=== PATIENT | male | born 1935 | race Caucasian/White ===

== ENCOUNTER 2016-03-04 11:16 | Outpatient (CLI) ==
[2016-03-04 11:37] LABS: BILIRUBIN,URINE Negative (NEGATIVE); KETONES,URINE Negative (NEGATIVE); LEUKOCYTE ESTERASE ,URINE 2+ (NEGATIVE); NITRITE,URINE Negative (NEGATIVE); PROTEIN,URINE Trace (NEGATIVE); URINE, BLOOD Trace-lysed (NEGATIVE)
[2016-03-04 11:38] LABS: ADD URINE MICROSCOPIC YES
[2016-03-04 11:39] LABS: BACTERIA,URINE 2+ (NOT PRESENT)
== END 2016-03-04 11:17 | disposition home or self-care (01) ==
LOC: LAB 11:16
PROVIDERS: ATTEND Emergency Medicine
DX: N39.0 Urinary tract infection, site not specified (principal)
CPT/HCPCS: 81001; 87086; 87186

== ENCOUNTER 2016-03-14 17:10 | Emergency (ER) | payer OTHER ==
[2016-03-14] MEDS ORDERED: DUONEB NEB STA (17:15)
--- NOTE | 2016-03-14 17:18 | ED.PDOC ---
General ED Provider: Dr. KENAN MCDONOUGH Stated Complaint: shortness of air for 2 days, always has trouble breathing but has gotten , chest pain and patient states he feels like " hell"[End]101.7 107 28 94 140/82 8/10 complains of shortness of air for a couple days, patient stated he feels like "Hell",has been ill for a couple of days, which is worse, productive cough of clear sputum, denies chest pain[End] Time Seen by Physician: 17:10 Mode of Arrival: Walk-In Information Source: Patient, Other Exam Limitations: No limitations Primary Care Provider: MACKENZIE FUENTES Nursing and Triage Documentation Reviewed and Agree: No Review of Systems - Review Of Systems Constitutional: Reports: Fever, Malaise, Weakness Eyes: Reports: No symptoms Ears, Nose, Mouth, Throat: Reports: No symptoms Respiratory: Reports: Cough, Short of air Cardiac: Reports: No symptoms GI: Reports: No symptoms : Reports: No symptoms Musculoskeletal: Reports: No symptoms Skin: Reports: No symptoms Neurological: Reports: No symptoms Endocrine: Reports: No symptoms Hematologic/Lymphatic: Reports: No symptoms All Other Systems: Other Past Medical History - Past Medical History Endocrine: Reports: Hypothyroid, Dyslipidemia Cardiovascular: Reports: None Respiratory: Reports: COPD Hematological: Reports: None Gastrointestinal: Reports: None Genitourinary: Reports: None Neuro/Psych: Reports: None Musculoskeletal: Reports: None Cancer: Reports: None - Surgical History General Surgical History: Reports: Tonsillectomy - Family History Family History: Reports: Unknown - Social History Smoking Status: Former smoker - Immunizations Influenza Vaccine within 12 Months: Yes (NOVEMBER) Pneumococcal Vaccine up to Date: Yes (ONE A LONG TIME AGO, ONE ONE OR TWO YEARS AGO) Physical Exam - Physical Exam Appearance: Ill-appearing, Obese Pain Distress: Moderate Eyes: NATHAN, EOMI, Conjunctiva clear ENT: Ears normal, Nose normal, Oropharynx normal Neck: Supple Respiratory: Airway patent, Breath sounds equal, Breath sounds diminished (LOUD UPPER AIRWAY NOISES), Respirations nonlabored Cardiovascular: RRR, Pulses normal, No rub, No murmur GI/: Soft, Nontender, No masses, Bowel sounds normal, No Organomegaly Musculoskeletal: Normal strength, ROM intact, No edema, No calf tenderness Skin: Warm, Dry, Normal color Neurological: Sensation intact, Motor intact, Reflexes intact, Cranial nerves intact, Alert, Oriented Psychiatric: Affect appropriate, Mood appropriate Interpretation - EKG Interpretation Time of EKG #1: 17:53 Rate: Tachy Rhythm: Sinus ST Segment: Other (BIFASCICULAR BLOCK) Re-Evaluation - Re-Evaluation Time of Re-Evaluation: 19:28 Status: Improved (PATIETN STATES MUCH BETTER STILL ROUGH, WANTS TO TRY AT [facility] WILLING TO RETURN IF ANY WORSENING, FAMILY WILLING TO HAVE HIM STAY AT THEIR HOME FOR CARE) Critical Care Note - Critical Care Note Total Time (mins): 10 Course - Course Hematology/Chemistry: 03/14/16 17:20 03/14/16 17:20 Orders, Labs, Meds: Lab Review 03/14/16 03/14/16 03/14/16 17:14 17:20 18:22 WBC 12.00 H RBC 4.52 L Hgb 14.3 Hct 45.2 MCV 100.0 H MCH 31.6 H MCHC 31.6 L RDW Coeff of Leonardo 13.2 Plt Count 277 Immature Gran % (Auto) 0.3 Neut % (Auto) 85.3 Lymph % (Auto) 8.3 L Kinney % (Auto) 4.5 Eos % (Auto) 1.0 Baso % (Auto) 0.6 Immature Gran # (Auto) 0.0 Neut # 10.2 H Lymph # 1.0 Kinney # 0.5 Eos # 0.1 Baso # 0.1 D-Dimer 2.15 Puncture Site Rrad O2 Saturation 93.0 L ABG pH 7.424 ABG pCO2 38.4 ABG pO2 64.0 L ABG HCO3 25.2 ABG Total CO2 26 ABG Base Excess 1 Alfonzo Test + FiO2 % 21.0 Sodium 139 Potassium 4.3 Chloride 103 Carbon Dioxide 30 Anion Gap 10.3 BUN 16 Creatinine 1.05 Estimated GFR (MDRD) 68.00 BUN/Creatinine Ratio 15.23 Glucose 133 H Calcium 9.2 Total Bilirubin 0.81 AST 19 ALT 22 Alkaline Phosphatase 55 L Total Creatine Kinase 72 Troponin I 0.0130 B-Natriuretic Peptide 16 Total Protein 7.3 Albumin 3.4 Globulin 3.9 Albumin/Globulin Ratio 0.87 Influenza A (Rapid) Positive H Influenza B (Rapid) Negative Orders Category Date Time Status ABG DRAW REQUEST Stat CARDIO 03/14/16 17:14 Completed EKG-(ED ONLY) Stat CARDIO 03/14/16 17:14 Completed NEBULIZER TREATMENT Stat CARDIO 03/14/16 17:15 Completed ED IV/MEDIPORT/POWERPORT .ONCE EMERGENCY 03/14/16 17:13 Active ABG Stat LAB 03/14/16 17:14 Completed B-TYPE NATRIURETIC PEPTIDE Stat LAB 03/14/16 17:20 Completed BLOOD CULTURE Stat LAB 03/14/16 17:30 Received CBC W/ AUTO DIFF Stat LAB 03/14/16 17:20 Completed COMPREHENSIVE METABOLIC PANEL Stat LAB 03/14/16 17:20 Completed CREATINE KINASE Stat LAB 03/14/16 17:20 Completed D-DIMER Stat LAB 03/14/16 17:20 Completed MOLECULAR GROUP A STREP Stat LAB 03/14/16 18:22 Results RAPID FLU A/B Stat LAB 03/14/16 18:22 Completed STREP SCREEN Stat LAB 03/14/16 18:22 Results TROPONIN I Stat LAB 03/14/16 17:20 Completed 0.9 % Sodium Chloride [Saline Flush] MEDS 03/14/16 17:13 Active 1 syr IVF PRN PRN Ipratropium/Albuterol Neb [Duoneb] MEDS 03/14/16 17:15 Discontinued 1 vial NEB ONCE STA Sulfamethoxazole/Trimethoprim [Bactrim Ds 800/160 mg] MEDS 03/14/16 18:50 Discontinued 1 tab PO ONCE STA CHEST, 1V AP ONLY Stat RADS 03/14/16 17:14 Taken Medications Generic Name Dose Route Start Last Admin Trade Name Freq PRN Reason Stop Dose Admin Sodium Chloride 1 syr 03/14/16 17:13 Saline Flush IVF PRN PRN To flush IV Discontinued Medications Generic Name Dose Route Start Last Admin Trade Name Freq PRN Reason Stop Dose Admin Albuterol/Ipratropium 1 vial 03/14/16 17:15 03/14/16 17:29 Duoneb NEB 03/14/16 17:16 1 vial ONCE STA Administration Trimethoprim/Sulfamethoxazole 1 tab 03/14/16 18:50 03/14/16 18:59 Bactrim Ds 800/160 Mg PO 03/14/16 18:51 1 tab ONCE STA Administration Vital Signs: Temp Pulse Resp BP Pulse Ox 03/14/16 17:12 101.7 F H 107 H 28 H 140/82 94 L Departure - Departure Time of Disposition: 19:29 Disposition: HOME SELF-CARE Discharge Problem: Influenza A Instructions: Influenza (ED) Condition: Fair Pt referred to PMD for follow-up: Yes Additional Instructions: RECHECK PMD THURSDAY RETURN IF WORSENING USE ALBUTEROL FOUR TIMES A DAY FOR THREE DAYS TYLENOL 650MG FOUR TIMES A DAY NEEDED FOR DISCOMFORT TAMIFLU MAY SHORTEN ILLNESS BY A FULL DAY BACTERIAL INFECTION MAY AFFECT PEOPLE WEAKENED BY THE FLU- RECHECK IF ANY WORSENING Prescriptions: Oseltamivir Phosphate [Tamiflu] 75 mg PO Q12HR #10 capsule Albuterol Sulfate [Proair Hfa] 2 puff IH Q6H #1 inhaler Allergies/Adverse Reactions: Allergies No Known Allergies Allergy (Unverified 03/14/16 17:27) Home Medications: Ambulatory Orders Albuterol Sulfate [Proair Hfa] 2 puff IH Q4H PRN 03/14/16 Albuterol Sulfate [Proair Hfa] 2 puff IH Q6H #1 inhaler 03/14/16 Bimatoprost Opth [Lumigan] 1 drop OP DAILY 03/14/16 Brinzolamide/Brimonidine Tart [Simbrinza 1%-0.2% Eye Drops] 8 ml OP DAILY Budesonide/Formoterol Fumarate [Symbicort 160-4.5 Mcg Inhaler] 2 puff IH BID Carvedilol [Coreg] 3.125 mg PO BIDWM 03/14/16 Furosemide [Lasix Tab] 40 mg PO QDAC 03/14/16 Levothyroxine Sodium [Synthroid] 100 mcg PO QDAC 03/14/16 Lisinopril 2.5 mg PO BID 03/14/16 Oseltamivir Phosphate [Tamiflu] 75 mg PO Q12HR #10 capsule 03/14/16 Pravastatin Sodium [Pravachol] 40 mg PO BEDTIME 03/14/16 Tamsulosin HCl [Flomax] 0.4 mg PO DAILY 03/14/16
[2016-03-14 17:19] VITALS: BP 140/82; TEMP 101.7; BMI 35.2
[2016-03-14 17:34] LABS: ABG BASE EXCESS 1 (-2.0-2.0); ABG HCO3 25.2 (22.0-26.0); ABG PCO2 38.4 mmHg (35-45); ABG PH 7.424 (7.35-7.45); ABG TCO2 26 (22.0-28.0)
[2016-03-14 17:44] LABS: BASOPHILS # (AUTO) 0.1 K/uL (0-0.2); BASOPHILS % (AUTO) 0.6 % (0.0-3.0); EOSINOPHILS # (AUTO) 0.1 K/ul (0.0-0.7); HEMATOCRIT 45.2 % (42.0-52.0); HEMOGLOBIN 14.3 g/dl (14.0-18.0); IMMATURE GRANULOCYTE % (AUTO) 0.3 % (0.0-5.0); LYMPHOCYTES % (AUTO) 8.3 (10.0-50.0); MEAN CORPUSCULAR HEMOGLOBIN 31.6 pg (27.0-31.0); MEAN CORPUSCULAR HGB CONC 31.6 (31.8-35.4); MONOCYTES # (AUTO) 0.5 K/uL (0.4-2.0); MONOCYTES % (AUTO) 4.5 (0-10); NEUTROPHILS # (AUTO) 10.2 K/ul (2.0-6.9); NEUTROPHILS % (AUTO) 85.3; PLATELET COUNT 277 10^3/uL (140-440); RED BLOOD COUNT 4.52 10^6/ul (4.70-6.10)
[2016-03-14 18:04] LABS: ALBUMIN 3.4 g/dL (3.4-5.0); ALBUMIN/GLOBULIN RATIO 0.87; ANION GAP 10.3; BILIRUBIN,TOTAL 0.81 mg/dL (0.00-1.20); BUN/CREATININE RATIO 15.23; CALCIUM 9.2 mg/dL (8.2-10.2); CREATININE 1.05 mg/dL (0.60-1.10); POTASSIUM 4.3 mmol/L (3.5-5.1); TOTAL PROTEIN 7.3 g/dL (5.8-8.1); TROPONIN I 0.013 ng/ml (0.0000-0.4000)
[2016-03-14] MEDS ORDERED: BACTRIM DS 800/160 MG PO STA (18:50)
[2016-03-14 19:04] LABS: FLU INTERNAL QC INTERNAL QC VALID; RAPID FLU A POSITIVE (NEGATIVE); RAPID FLU B NEGATIVE (NEGATIVE)
--- NOTE | 2016-03-14 22:12 | DI ---
EXAM: Chest one view HISTORY: Chest pain COMPARISON: 11/10/2013 TECHNIQUE: Single view of the chest was performed FINDINGS: The lungs are clear. There is no pleural effusion or pneumothorax. The heart is normal in size. The mediastinal contour is normal. There are no acute abnormalities of the bones. IMPRESSION: No acute cardiopulmonary process.
== END 2016-03-14 19:46 | disposition home or self-care (01) ==
LOC: MERGE 17:10 → ED 17:10
DX: J09.X2 Influenza due to identified novel influenza A virus with other respiratory manifestations (principal); Z79.899 Other long term (current) drug therapy
CPT/HCPCS: 36415; 80053; 82550; 82803; 83880; 84484; 85025; 85379; 87040; 87651; 87804; 87880; 93005; 93010; 94640; 99284

== ENCOUNTER 2016-03-17 15:41 | Inpatient (IN) ==
[2016-03-17] MEDS ORDERED: XOPENEX 1.25 MG NEB ONE (15:50)
[2016-03-17] MEDS ORDERED: XOPENEX 1.25 MG NEB STA (15:57)
[2016-03-17] MEDS ORDERED: DUONEB NEB ONE ×2 (16:14→23:09)
[2016-03-17] MEDS ORDERED: DUONEB NEB STA (16:15)
[2016-03-17 16:24] LABS: BASOPHILS % (AUTO) 0.3 % (0.0-3.0); EOSINOPHILS % (AUTO) 0.1 % (0.0-7.0); HEMATOCRIT 46.4 % (42.0-52.0); HEMOGLOBIN 14.7 g/dl (14.0-18.0); IMMATURE GRANULOCYTE % (AUTO) 0.3 % (0.0-5.0); LYMPHOCYTES # (AUTO) 1.5 K/uL (0.60-3.4); MEAN CORPUSCULAR HEMOGLOBIN 31.5 pg (27.0-31.0); MEAN CORPUSCULAR HGB CONC 31.7 (31.8-35.4); MEAN CORPUSCULAR VOLUME 99.6 fl (80.0-94.0); MONOCYTES # (AUTO) 0.9 K/uL (0.4-2.0); MONOCYTES % (AUTO) 6.7 (0-10); NEUTROPHILS # (AUTO) 11.1 K/ul (2.0-6.9); NEUTROPHILS % (AUTO) 81.6; PLATELET COUNT 272 10^3/uL (140-440); RED BLOOD COUNT 4.66 10^6/ul (4.70-6.10); WHITE BLOOD COUNT 13.64 K/ul (4.2-10.2)
[2016-03-17 16:39] LABS: ABG PCO2 44.2 mmHg (35-45); ABG PH 7.371 (7.35-7.45)
[2016-03-17 16:40] LABS: ABG BASE EXCESS 0 (-2.0-2.0); ABG HCO3 25.6 (22.0-26.0); ABG TCO2 27 (22.0-28.0)
--- NOTE | 2016-03-17 16:55 | DI ---
EXAM: Single frontal view of the chest HISTORY: Cough. COMPARISON: Chest x-ray 03/14/2016 FINDINGS: Cardiomediastinal silhouette is unchanged and mildly enlarged. There is no pneumothorax o r pleural effusion. There is no consolidation, nodule or mass. The osseous structures demonstrate degenerative disease of the spine. IMPRESSION: No acute cardiopulmonary process.
[2016-03-17 17:01] LABS: ALBUMIN 3.2 g/dL (3.4-5.0); ALBUMIN/GLOBULIN RATIO 0.71; ANION GAP 16.3; BILIRUBIN,TOTAL 1.15 mg/dL (0.00-1.20); BUN/CREATININE RATIO 20.93; CALCIUM 9.1 mg/dL (8.2-10.2); CREATININE 0.86 mg/dL (0.60-1.10); POTASSIUM 4.3 mmol/L (3.5-5.1); TOTAL PROTEIN 7.7 g/dL (5.8-8.1); TROPONIN I 0.014 ng/ml (0.0000-0.4000)
[2016-03-17 17:07] LABS: CREATINE KINASE MB 1.8 ng/ml (0.0-3.6)
[2016-03-17] MEDS ORDERED: SOLU-MEDROL 125 MG 125 MG in SODIUM CHLORIDE 50 ML IV ONE (18:00)
--- NOTE | 2016-03-17 18:07 | ED.PDOC ---
General ED Provider: Dr. LAURA AVALOS Chief Complaint: Shortness of Air Stated Complaint: short of air Time Seen by Physician: 16:00 (no chest pain ) Mode of Arrival: Wheelchair Information Source: Patient Exam Limitations: No limitations Primary Care Provider: MACKENZIE FUENTES Nursing and Triage Documentation Reviewed and Agree: Yes (lower leg edema pt stated is chronic ) Respiratory Complaint Exam - Shortness of Air Complaint/Exam Onset/Duration: 3 days Symptoms Are: Still present Timing: Constant Initial Severity: Moderate Current Severity: Moderate Character: Reports: Dyspnea at rest, Dyspnea on exertion, Orthopnea Aggravating: Reports: None Associated Signs and Symptoms: Reports: Cough, Nasal congestion History of Healthcare-Acquired Pneumonia: No Pulmonary Embolism Risk Factors: Reports: Bedrest Cardiac Risk Factors: Reports: Elevated lipids, Hypertension Pseudomonas Risk Factors: Reports: None Tuberculosis Risk Factors: Reports: None Home Oxygen Use: No Recent Stress Test: No Recent Echo/LV Function: No Respiratory Distress: Mild Stridor Present: No Tracheal Deviation: No Subcutaneous Emphysema: No Accessory Muscle Use: No Retractions: Not Present Diminished Breath Sounds: No Prolonged Expiratory Phase: No Unable to Speak Full Sentences: No Fatigue: No Leg Swelling: No Cynthia's Sign Present: No Grunting Respirations: No Kussmaul Respirations: No Differential Diagnoses: Pneumonia, Bronchitis Review of Systems - Review Of Systems Constitutional: Reports: Malaise Eyes: Reports: No symptoms Ears, Nose, Mouth, Throat: Reports: No symptoms Respiratory: Reports: Cough Cardiac: Reports: No symptoms GI: Reports: No symptoms : Reports: No symptoms Musculoskeletal: Reports: No symptoms Skin: Reports: Other (pedal edema lower legs bilaterally) Neurological: Reports: No symptoms Endocrine: Reports: No symptoms Hematologic/Lymphatic: Reports: No symptoms All Other Systems: Reviewed and Negative Past Medical History - Past Medical History Endocrine: Reports: Hypothyroid, Dyslipidemia Cardiovascular: Reports: None Respiratory: Reports: COPD Hematological: Reports: None Gastrointestinal: Reports: None Genitourinary: Reports: None Neuro/Psych: Reports: None Musculoskeletal: Reports: None Cancer: Reports: None - Surgical History General Surgical History: Reports: Tonsillectomy - Family History Family History: Reports: Unknown - Social History Smoking Status: Former smoker Hx Substance Use: No Alcohol Screening: None - Immunizations Influenza Vaccine within 12 Months: Yes (NOVEMBER) Pneumococcal Vaccine up to Date: Yes (ONE A LONG TIME AGO, ONE ONE OR TWO YEARS AGO) Physical Exam - Physical Exam Appearance: Well-appearing, No pain distress, Obese Ill-appearing: Moderate Pain Distress: Mild Eyes: NATHAN, EOMI, Conjunctiva clear ENT: Ears normal, Nose normal, Oropharynx normal Respiratory: Rhonchi Cardiovascular: RRR, Pulses normal, No rub, No murmur GI/: Soft, Nontender, No masses, Bowel sounds normal, No Organomegaly Musculoskeletal: Normal strength, ROM intact, No calf tenderness, Edema (+1 lower legs bilaterally) Skin: Warm, Dry, Normal color Neurological: Sensation intact, Motor intact, Reflexes intact, Cranial nerves intact, Alert, Oriented Psychiatric: Affect appropriate, Mood appropriate Interpretation - Radiology Interpretation Radiology Interpretation By: ED Physician Radiology Results: Negative Exam Interpreted: CXR Physician Notification - Case Discussed Physician Notified: aleks Time of Notification: 18:07 (admitt now) Critical Care Note - Critical Care Note Total Time (mins): 0 Course - Course Hematology/Chemistry: 03/17/16 16:18 03/17/16 16:18 Orders, Labs, Meds: Lab Review 03/17/16 03/17/16 15:56 16:18 WBC 13.64 H RBC 4.66 L Hgb 14.7 Hct 46.4 MCV 99.6 H MCH 31.5 H MCHC 31.7 L RDW Coeff of Leonardo 13.2 Plt Count 272 Immature Gran % (Auto) 0.3 Neut % (Auto) 81.6 Lymph % (Auto) 11.0 Sutter % (Auto) 6.7 Eos % (Auto) 0.1 Baso % (Auto) 0.3 Immature Gran # (Auto) 0.0 Neut # 11.1 H Lymph # 1.5 Sutter # 0.9 Eos # 0.0 Baso # 0.0 D-Dimer 1.51 Puncture Site Rrad O2 Saturation 88.0 L ABG pH 7.371 ABG pCO2 44.2 ABG pO2 56.0 L* ABG HCO3 25.6 ABG Total CO2 27 ABG Base Excess 0 Alfonzo Test + FiO2 % 21.0 Sodium 139 Potassium 4.3 Chloride 99 Carbon Dioxide 28 Anion Gap 16.3 BUN 18 Creatinine 0.86 Estimated GFR (MDRD) 86.00 BUN/Creatinine Ratio 20.93 Glucose 114 Lactic Acid 8.9 Calcium 9.1 Total Bilirubin 1.15 AST 20 ALT 19 Alkaline Phosphatase 52 L Total Creatine Kinase 119 CK-MB (CK-2) 1.8 CK-MB (CK-2) % 1.72155 Troponin I 0.0140 B-Natriuretic Peptide < 10 Total Protein 7.7 Albumin 3.2 L Globulin 4.5 Albumin/Globulin Ratio 0.71 Orders Category Date Time Status ADMIT PATIENT INPATIENT .TO [facility] (MONITORED BED) ADMISSION 03/17/16 17: 58 Active ABG DRAW REQUEST DAILY@0600 CARDIO 03/18/16 06:00 Ordered ABG DRAW REQUEST Stat CARDIO 03/17/16 15:56 Completed EKG-(ED ONLY) Stat CARDIO 03/17/16 15:58 Completed EKG-(IP & OP ONLY) DAILY CARDIO 03/18/16 06:00 Ordered EKG-(IP & OP ONLY) DAILY CARDIO 03/19/16 06:00 Ordered EKG-(IP & OP ONLY) DAILY CARDIO 03/20/16 06:00 Ordered NEBULIZER TREATMENT Stat CARDIO 03/17/16 15:57 Completed NEBULIZER TREATMENT Stat CARDIO 03/17/16 16:15 Completed NEBULIZER TREATMENT Stat CARDIO 03/17/16 18:02 Ordered ACTIVITY .Complete BR CARE 03/17/16 17:58 Active TELEMETRY MONITORING TELE CARE 03/17/16 17:58 Active VITAL SIGNS Q8HR CARE 03/17/16 17:58 Active REGULAR DIET DIETARY 03/17/16 Dinner Ordered ABG DAILY@0600 LAB 03/19/16 06:00 Ordered ABG Stat LAB 03/17/16 15:56 Completed B-TYPE NATRIURETIC PEPTIDE Stat LAB 03/17/16 16:18 Completed BLOOD CULTURE Stat LAB 03/17/16 16:18 Received CBC W/ AUTO DIFF DAILY@0600 LAB 03/18/16 06:00 Ordered CBC W/ AUTO DIFF DAILY@0600 LAB 03/19/16 06:00 Ordered CBC W/ AUTO DIFF DAILY@0600 LAB 03/20/16 06:00 Ordered CBC W/ AUTO DIFF DAILY@0600 LAB 03/21/16 06:00 Ordered CBC W/ AUTO DIFF DAILY@0600 LAB 03/22/16 06:00 Ordered CBC W/ AUTO DIFF DAILY@0600 LAB 03/23/16 06:00 Ordered CBC W/ AUTO DIFF DAILY@0600 LAB 03/24/16 06:00 Ordered CBC W/ AUTO DIFF DAILY@0600 LAB 03/25/16 06:00 Ordered CBC W/ AUTO DIFF DAILY@0600 LAB 03/26/16 06:00 Ordered CBC W/ AUTO DIFF DAILY@0600 LAB 03/27/16 06:00 Ordered CBC W/ AUTO DIFF DAILY@0600 LAB 03/28/16 06:00 Ordered CBC W/ AUTO DIFF DAILY@0600 LAB 03/29/16 06:00 Ordered CBC W/ AUTO DIFF DAILY@0600 LAB 03/30/16 06:00 Ordered CBC W/ AUTO DIFF DAILY@0600 LAB 03/31/16 06:00 Ordered CBC W/ AUTO DIFF DAILY@0600 LAB 04/01/16 06:00 Ordered CBC W/ AUTO DIFF DAILY@0600 LAB 04/02/16 06:00 Ordered CBC W/ AUTO DIFF DAILY@0600 LAB 04/03/16 06:00 Ordered CBC W/ AUTO DIFF DAILY@0600 LAB 04/04/16 06:00 Ordered CBC W/ AUTO DIFF DAILY@0600 LAB 04/05/16 06:00 Ordered CBC W/ AUTO DIFF DAILY@0600 LAB 04/06/16 06:00 Ordered CBC W/ AUTO DIFF Stat LAB 03/17/16 16:18 Completed COMPREHENSIVE METABOLIC PANEL DAILY@0600 LAB 03/18/16 06:00 Ordered COMPREHENSIVE METABOLIC PANEL DAILY@0600 LAB 03/19/16 06:00 Ordered COMPREHENSIVE METABOLIC PANEL DAILY@0600 LAB 03/20/16 06:00 Ordered COMPREHENSIVE METABOLIC PANEL DAILY@0600 LAB 03/21/16 06:00 Ordered COMPREHENSIVE METABOLIC PANEL DAILY@0600 LAB 03/22/16 06:00 Ordered COMPREHENSIVE METABOLIC PANEL DAILY@0600 LAB 03/23/16 06:00 Ordered COMPREHENSIVE METABOLIC PANEL DAILY@0600 LAB 03/24/16 06:00 Ordered COMPREHENSIVE METABOLIC PANEL DAILY@0600 LAB 03/25/16 06:00 Ordered COMPREHENSIVE METABOLIC PANEL DAILY@0600 LAB 03/26/16 06:00 Ordered COMPREHENSIVE METABOLIC PANEL DAILY@0600 LAB 03/27/16 06:00 Ordered COMPREHENSIVE METABOLIC PANEL DAILY@0600 LAB 03/28/16 06:00 Ordered COMPREHENSIVE METABOLIC PANEL DAILY@0600 LAB 03/29/16 06:00 Ordered COMPREHENSIVE METABOLIC PANEL DAILY@0600 LAB 03/30/16 06:00 Ordered COMPREHENSIVE METABOLIC PANEL DAILY@0600 LAB 03/31/16 06:00 Ordered COMPREHENSIVE METABOLIC PANEL DAILY@0600 LAB 04/01/16 06:00 Ordered COMPREHENSIVE METABOLIC PANEL DAILY@0600 LAB 04/02/16 06:00 Ordered COMPREHENSIVE METABOLIC PANEL DAILY@0600 LAB 04/03/16 06:00 Ordered COMPREHENSIVE METABOLIC PANEL DAILY@0600 LAB 04/04/16 06:00 Ordered COMPREHENSIVE METABOLIC PANEL DAILY@0600 LAB 04/05/16 06:00 Ordered COMPREHENSIVE METABOLIC PANEL DAILY@0600 LAB 04/06/16 06:00 Ordered COMPREHENSIVE METABOLIC PANEL Stat LAB 03/17/16 16:18 Completed CREATINE KINASE Q8H LAB 03/17/16 17:58 Ordered CREATINE KINASE Q8H LAB 03/18/16 01:58 Ordered CREATINE KINASE Stat LAB 03/17/16 16:18 Completed D-DIMER Stat LAB 03/17/16 16:18 Completed LACTIC ACID Stat LAB 03/17/16 16:18 Completed MOLECULAR GROUP A STREP Stat LAB 03/17/16 16:05 Results STREP SCREEN Stat LAB 03/17/16 16:05 Results TROPONIN I Q8H LAB 03/17/16 17:58 Ordered TROPONIN I Q8H LAB 03/18/16 01:58 Ordered TROPONIN I Stat LAB 03/17/16 16:18 Completed Bimatoprost Opth [Lumigan] MEDS 03/18/16 09:00 Ordered 1 drop OP DAILY Carvedilol [Coreg] MEDS 03/18/16 08:00 Ordered 3.125 mg PO BIDWM Ceftriaxone Sodium [Rocephin] 1 gm MEDS 03/18/16 09:00 Ordered 0.9 % Sodium Chloride [Sodium Chloride] 50 ml IV DAILY Furosemide [Lasix Tab] MEDS 03/18/16 06:30 Ordered 40 mg PO QDAC Ipratropium/Albuterol Neb [Duoneb] MEDS 03/17/16 16:14 Discontinued 1 vial NEB .STK-MED ONE Ipratropium/Albuterol Neb [Duoneb] MEDS 03/17/16 16:15 Discontinued 1 vial NEB ONCE STA Ipratropium/Albuterol Neb [Duoneb] MEDS 03/18/16 00:00 Ordered 1 vial NEB RTQ6H Levalbuterol HCl [Xopenex 1.25 mg] MEDS 03/17/16 15:50 Discontinued 1 vial NEB .STK-MED ONE Levalbuterol HCl [Xopenex 1.25 mg] MEDS 03/17/16 15:57 Discontinued 1 vial NEB ONCE STA Levofloxacin/D5w [Levaquin] 500 mg MEDS 03/18/16 09:00 Ordered Premix 100 ml D5w 1 bag IV DAILY Levothyroxine Sodium [Synthroid] MEDS 03/18/16 06:30 Ordered 100 mcg PO QDAC Lisinopril [Lisinopril] MEDS 03/17/16 21:00 Ordered 2.5 mg PO BID Methylprednisolone Sod Succ/Pf [Solu-Medrol 125 mg] MEDS 03/17/16 21:00 Ordered 40 mg IVP Q12HR Methylprednisolone Sod Succ/Pf [Solu-Medrol 125 mg] 125 MEDS 03/17/16 18:00 Active mg 0.9 % Sodium Chloride [Sodium Chloride] 50 ml IV ONCE Pravastatin Sodium [Pravachol] MEDS 03/17/16 21:00 Ordered 40 mg PO BEDTIME Sodium Chloride 0.9% [Sodium Chloride] 1,000 ml MEDS 03/17/16 18:00 Ordered IV 75 mls/hr Tamsulosin HCl [Flomax] MEDS 03/18/16 09:00 Ordered 0.4 mg PO DAILY CHEST, 1V AP ONLY Stat RADS 03/17/16 15:57 Completed CHEST, 2 VIEWS PA & LAT DAILY RADS 03/19/16 06:00 Ordered Medications Generic Name Dose Route Start Last Admin Trade Name Freq PRN Reason Stop Dose Admin Albuterol/Ipratropium 1 vial 03/18/16 00:00 Duoneb NEB RTQ6H PATRICIA Bimatoprost 1 drop 03/18/16 09:00 Lumigan OP DAILY PATRICIA Carvedilol 3.125 mg 03/18/16 08:00 Coreg PO BIDWM PATRICIA Furosemide 40 mg 03/18/16 06:30 Lasix Tab PO QDAC PATRICIA Ceftriaxone Sodium 1 gm/ 50 mls @ 75 mls/hr 03/18/16 09:00 Sodium Chloride IV DAILY PATRICIA Levofloxacin/Dextrose 500 mg/ 100 mls @ 100 mls/hr 03/18/16 09:00 Dextrose IV DAILY PATRICIA Sodium Chloride 1,000 mls @ 75 mls/hr 03/17/16 18:00 Sodium Chloride IV .[id number] PATRICIA Methylprednisolone Sodium 52 mls @ 100 mls/hr 03/17/16 18:00 Succinate 125 mg/ Sodium IV 03/17/16 18:32 Chloride ONCE ONE Levothyroxine Sodium 100 mcg 03/18/16 06:30 Synthroid PO QDAC PATRICIA Methylprednisolone Sodium Succinate 40 mg 03/17/16 21:00 Solu-Medrol 125 Mg IVP Q12HR PATRICIA Non-Formulary Medication 2.5 mg 03/17/16 21:00 Lisinopril [Lisinopril] PO BID PATRICIA Pravastatin Sodium 40 mg 03/17/16 21:00 Pravachol PO BEDTIME PATRICIA Tamsulosin HCl 0.4 mg 03/18/16 09:00 Flomax PO DAILY PATRICIA Discontinued Medications Generic Name Dose Route Start Last Admin Trade Name Freq PRN Reason Stop Dose Admin Albuterol/Ipratropium 1 vial 03/17/16 16:15 03/17/16 16:47 Duoneb NEB 03/17/16 16:16 Not Given ONCE STA Levalbuterol HCl 1 vial 03/17/16 15:57 03/17/16 16:46 Xopenex 1.25 Mg NEB 03/17/16 15:58 Not Given ONCE STA Vital Signs: Temp Pulse Resp BP Pulse Ox 03/17/16 15:42 98.0 F 95 H 40 H 149/102 H 86 L Departure - Departure Time of Disposition: 18:08 Disposition: ADMITTED INPATIENT Discharge Problem: Shortness of breath Instructions: Dyspnea (ED) Condition: Good Pt referred to PMD for follow-up: No Additional Instructions: Please call your Family Physician as soon as possible to schedule a follow-up appointment. Allergies/Adverse Reactions: Allergies No Known Allergies Allergy (Verified 03/17/16 15:45) Home Medications: Ambulatory Orders Albuterol Sulfate [Proair Hfa] 2 puff IH Q4H PRN 03/14/16 Albuterol Sulfate [Proair Hfa] 2 puff IH Q6H #1 inhaler 03/14/16 Bimatoprost Opth [Lumigan] 1 drop OP DAILY 03/14/16 Brinzolamide/Brimonidine Tart [Simbrinza 1%-0.2% Eye Drops] 8 ml OP DAILY Budesonide/Formoterol Fumarate [Symbicort 160-4.5 Mcg Inhaler] 2 puff IH BID Carvedilol [Coreg] 3.125 mg PO BIDWM 03/14/16 Furosemide [Lasix Tab] 40 mg PO QDAC 03/14/16 Levothyroxine Sodium [Synthroid] 100 mcg PO QDAC 03/14/16 Lisinopril 2.5 mg PO BID 03/14/16 Oseltamivir Phosphate [Tamiflu] 75 mg PO Q12HR #10 capsule 03/14/16 Pravastatin Sodium [Pravachol] 40 mg PO BEDTIME 03/14/16 Tamsulosin HCl [Flomax] 0.4 mg PO DAILY 03/14/16 Disposition Discussed With: Patient
[2016-03-17 19:40] VITALS: BMI 34.7
[2016-03-17] MEDS ORDERED: SOLU-MEDROL 125 MG ONE (20:34)
[2016-03-17] MEDS ORDERED: ZESTRIL ONE (20:34)
[2016-03-17] MEDS: PRAVACHOL PO SCH (20:36)
[2016-03-17] MEDS: SODIUM CHLORIDE 1,000 ML IV SCH (20:41)
[2016-03-17] MEDS ORDERED: NON-FORMULARY MEDICATION (Lisinopril [Lisinopril] 2.5 MG) PO SCH ×22 (21:00)
[2016-03-17] MEDS ORDERED: SOLU-MEDROL 125 MG IVP SCH (21:00)
[2016-03-17] MEDS: TAMIFLU PO SCH (21:06)
[2016-03-17] MEDS: DUONEB NEB SCH (23:09)
[2016-03-18 02:07] LABS: BASOPHILS % (AUTO) 0.2 % (0.0-3.0); HEMATOCRIT 43.8 % (42.0-52.0); HEMOGLOBIN 13.5 g/dl (14.0-18.0); IMMATURE GRANULOCYTE % (AUTO) 0.4 % (0.0-5.0); LYMPHOCYTES # (AUTO) 0.7 K/uL (0.60-3.4); LYMPHOCYTES % (AUTO) 6.6 (10.0-50.0); MEAN CORPUSCULAR HEMOGLOBIN 31.1 pg (27.0-31.0); MEAN CORPUSCULAR HGB CONC 30.8 (31.8-35.4); MEAN CORPUSCULAR VOLUME 100.9 fl (80.0-94.0); MONOCYTES # (AUTO) 0.3 K/uL (0.4-2.0); MONOCYTES % (AUTO) 3.1 (0-10); NEUTROPHILS % (AUTO) 89.7; PLATELET COUNT 250 10^3/uL (140-440); RED BLOOD COUNT 4.34 10^6/ul (4.70-6.10); WHITE BLOOD COUNT 11.11 K/ul (4.2-10.2)
[2016-03-18 02:26] LABS: ALBUMIN 2.8 g/dL (3.4-5.0); ALBUMIN/GLOBULIN RATIO 0.65; ANION GAP 16.7; BILIRUBIN,TOTAL 1.07 mg/dL (0.00-1.20); BUN/CREATININE RATIO 20.48; CALCIUM 8.7 mg/dL (8.2-10.2); CREATININE 0.83 mg/dL (0.60-1.10); POTASSIUM 4.7 mmol/L (3.5-5.1); TOTAL PROTEIN 7.1 g/dL (5.8-8.1)
[2016-03-18 02:43] LABS: CREATINE KINASE MB 2.3 ng/ml (0.0-3.6); TROPONIN I 0.034 ng/ml (0.0000-0.4000)
[2016-03-18] MEDS: SYNTHROID PO SCH (05:39)
[2016-03-18] MEDS: LASIX TAB PO SCH (05:39)
[2016-03-18] MEDS: DUONEB NEB SCH ×4 (05:50→23:34)
[2016-03-18 05:56] LABS: ABG PCO2 47.6 mmHg (35-45); ABG PH 7.327 (7.35-7.45)
[2016-03-18 05:57] LABS: ABG BASE EXCESS -1 (-2.0-2.0); ABG HCO3 24.9 (22.0-26.0); ABG TCO2 26 (22.0-28.0)
[2016-03-18] MEDS ORDERED: SODIUM CHLORIDE 1,000 ML IV SCH (08:14)
[2016-03-18] MEDS: COREG PO SCH ×2 (08:50→17:04)
[2016-03-18] MEDS: FLOMAX PO SCH (08:51)
[2016-03-18] MEDS: LEVAQUIN 500 MG in PREMIX 100 ML D5W 1 BAG IV SCH (08:51)
[2016-03-18] MEDS: TAMIFLU PO SCH ×2 (08:56→21:04)
[2016-03-18] MEDS: ZESTRIL PO SCH ×2 (08:56→21:03)
[2016-03-18] MEDS: SOLU-MEDROL 40 MG IVP SCH ×2 (08:57→21:03)
[2016-03-18] MEDS: LUMIGAN OP SCH (09:55)
[2016-03-18] MEDS: ROCEPHIN 1 GM in SODIUM CHLORIDE 50 ML IV SCH (09:58)
--- NOTE | 2016-03-18 13:11 | HP ---
DATE OF SERVICE: 03/17/16 REASON FOR HOSPITALIZATION: Shortness of breath HISTORY OF PRESENT ILLNESS: The patient is a 80 year old male with history of COPD, Chronic dependant edema came to the emergency room on the March 14 for the feeling weak, tired, hurting all over, shortness of breath, feeling like hell. Seen by Dr. Fang on that day. His WBC 12,000 and serology positive for the influenza A at that time when Dr. Fang asked for the admission the patient said that he wanted to go home and feel better. He went home and started taking the medication but not getting better. Shortness of breath was getting worse. Dr. Fang talked to him and he was willing to go home but was not feeling good and started feeling worse. Still having weakness, tiredness and shortness of breath so came to the emergency room again on the March [address] Mendiola. WBC was 13,000 , ABG showed the pH 7.37, pCO2 44.2, pO2 56. At that time the patient was admitted to the hospital for the IV fluids and the treatment for acute exacerbation of the bronchitis and hypoxemia. REVIEW OF SYSTEMS: CONSTITUTIONAL: No night sweats. Weakness and tiredness. Fever and chills. HEENT: Eyes: No visual changes. No eye pain. No eye discharge. ENT: No runny nose. No epistaxis. No sinus pain. No sore throat. No odynophagia. No ear pain. No congestion. RESPIRATORY: No cough, no congestion. No hemoptysis. CARDIOVASCULAR: No angina symptoms. No CHF symptoms. No atypical chest pain for CAD. No palpitations. Shortness of breath. GASTROINTESTINAL: No abdominal pain. No nausea or vomiting. No diarrhea or constipation. No hematemesis. No hematochezia. GENITOURINARY: No urgency. No frequency. No dysuria. No hematuria. No obstructive symptoms. No discharge. No pain. No significant abnormal bleeding. MUSCULOSKELETAL: No musculoskeletal pain. No joint swelling. No arthritis. NEUROLOGICAL: No headache. No neck pain. No syncope. No seizures. No dizziness. PSYCHIATRIC: Not anxious. No depression. No suicidal thoughts. No homicidal thoughts. SKIN: No rash. No lesions. No wounds. ENDOCRINE: No unexplained weight loss. No weight gain. HEMATOLOGIC/LYMPHATIC: No anemia. No purpura. No petechiae. No prolonged or excessive bleeding. No palpable lymph nodes. PERSONAL/FAMILY/SOCIAL HISTORY: Used to smoke and stopped at the age of 50. No alcohol and no drugs. . Family history is significant for the heart problems. PAST MEDICAL/SURGICAL PROBLEMS: Coronary artery disease Congestive heart failure Atrial fibrillation COPD Benign prostatic hyperplasia History chronic kidney disease Tonsillectomy MEDICATIONS: Lumigan Coreg Lasix Synthroid Zestril Tamiflu Pravachol ALLERGIES: No known allergies PHYSICAL EXAMINATION: GENERAL: The patient is a sick looking man sitting in the bed. VITAL SIGNS: Blood pressure 149/102, respiratory rate 40, heart rate 95 and temperature 98.0 and saturation 86 HEENT: Head normocephalic, atraumatic. Eyes: Extraocular muscles are intact. Pupils are equal, round and reactive to light and accommodation. Ears: No lesions. Nose appeared normal. Throat: No exudate or erythema. Mucosa dry. Pallor positive. NECK: Supple. No JVD, no carotid bruit. No lymphadenopathy or thyromegaly. LUNGS: Decreased with basilar crackles. Percussion note normal. Chest symmetrical. HEART: S1, S2, no S3. No murmurs. No cyanosis or clubbing. No ascites. Pulses: Dorsalis pedis and posterior tibial pulses +1 to +2 both sides. ABDOMEN: Soft. Nontender. Bowel sounds active. No CVA tenderness. No mass felt. EXTREMITIES: 2+ edema. Full range of motion of all extremities, equal. No clubbing. NEUROLOGIC: No focal deficit. Cranial nerves II through XII are grossly intact. No headache, no double vision or headache. SKIN: Not dry. Intact. Turgor - normal. LYMPHATIC: No palpable lymph nodes/no lymphedema. MUSCULOSKELETAL: Normal joints with no swelling. Muscle tone is normal. LABS: WBC 13.64, hgb 14.7, hct 46.4, plt count 272, D-dimer 1.51, ABG pH 7.37, pCO2 44.2, pO2 56, Sodium 139, potassium 4.3, chloride 99, bicarb 28, BUN 18, creatinine 0.86, lactic acid is 8.9 and BNP less than 10. Chest x-ray is normal. ASSESSMENT: 1. COPD exacerbation secondary to the bronchitis and Flu A 2. Hypoxemia secondary to COPD and bronchitis 3. History of Coronary artery disease 4. Congestive heart failure 5. Hypertension 6. Dependant edema PLAN: 1. Admit patient to the regular floor 2. CBC and CMP today and daily 3. Cardiac enzymes and Troponin 4. Rocephin 1 gram daily 5. DUO Nebs Q 6 hours 6. Solu-Medrol 125mg one time and then 40mg Q 12 hours 7. Daily I&O's 8. Keep the legs elevated Will follow the patient in daily rounds. TIME SPENT: More than 65 minutes. MTDD
[2016-03-18] MEDS: PRAVACHOL PO SCH (21:03)
[2016-03-19 04:30] LABS: BASOPHILS % (AUTO) 0.1 % (0.0-3.0); HEMATOCRIT 42.6 % (42.0-52.0); HEMOGLOBIN 13.4 g/dl (14.0-18.0); IMMATURE GRANULOCYTE % (AUTO) 0.4 % (0.0-5.0); LYMPHOCYTES # (AUTO) 1.2 K/uL (0.60-3.4); LYMPHOCYTES % (AUTO) 9.7 (10.0-50.0); MEAN CORPUSCULAR HEMOGLOBIN 31.2 pg (27.0-31.0); MEAN CORPUSCULAR HGB CONC 31.5 (31.8-35.4); MEAN CORPUSCULAR VOLUME 99.1 fl (80.0-94.0); MONOCYTES # (AUTO) 0.5 K/uL (0.4-2.0); MONOCYTES % (AUTO) 3.9 (0-10); NEUTROPHILS # (AUTO) 10.3 K/ul (2.0-6.9); NEUTROPHILS % (AUTO) 85.9; PLATELET COUNT 308 10^3/uL (140-440); WHITE BLOOD COUNT 11.98 K/ul (4.2-10.2)
[2016-03-19 04:56] LABS: ALBUMIN 2.7 g/dL (3.4-5.0); ALBUMIN/GLOBULIN RATIO 0.63; ANION GAP 13.4; BILIRUBIN,TOTAL 0.39 mg/dL (0.00-1.20); BUN/CREATININE RATIO 22.91; CALCIUM 8.9 mg/dL (8.2-10.2); CREATININE 0.96 mg/dL (0.60-1.10); POTASSIUM 4.4 mmol/L (3.5-5.1)
[2016-03-19] MEDS: DUONEB NEB SCH ×3 (05:14→18:01)
[2016-03-19] MEDS: SYNTHROID PO SCH (05:48)
[2016-03-19] MEDS: LASIX TAB PO SCH (05:48)
[2016-03-19] MEDS: SODIUM CHLORIDE 1,000 ML IV SCH (07:35)
[2016-03-19] MEDS ORDERED: LASIX IVP STA (08:14)
[2016-03-19] MEDS: COREG PO SCH ×2 (08:30→17:09)
[2016-03-19] MEDS: TAMIFLU PO SCH ×2 (08:31→20:18)
[2016-03-19] MEDS: FLOMAX PO SCH (08:31)
[2016-03-19] MEDS: LUMIGAN OP SCH (08:31)
[2016-03-19] MEDS: ZESTRIL PO SCH ×2 (08:32→20:17)
[2016-03-19] MEDS: LEVAQUIN 500 MG in PREMIX 100 ML D5W 1 BAG IV SCH (08:53)
[2016-03-19] MEDS ORDERED: MEDROL DOSEPAK PO SCH (09:00)
[2016-03-19] MEDS: MEDROL DOSEPAK PO SCH ×4 (09:03→20:17)
[2016-03-19] MEDS: ROCEPHIN 1 GM in SODIUM CHLORIDE 50 ML IV SCH (10:39)
--- NOTE | 2016-03-19 12:09 | DI ---
EXAM: Chest two views HISTORY: Shortness of breath COMPARISON: 03/17/2016 TECHNIQUE: Two views of the chest were performed FINDINGS: No airspace consolidation. There is right apical scarring that appears unchanged. Lungs are hyperinflated. No pneumothorax. There is blunting costophrenic angles. The heart is normal in size. The mediastinal contour is normal. There are no acute abnormalities of the bones. IMPRESSION: 1. Blunting costophrenic angles may represent trace pleural effusions versus pleural parenchymal sc arring. No airspace consolidation. 2. Hyperinflated lungs suggest chronic obstructive lung disease.
--- NOTE | 2016-03-19 13:22 | PCM.PROG ---
Attending Provider: ATTENDING PROVIDER: Dr. AZALEA LONDON DATE OF SERVICE: 03/19/16 SUBJECTIVE: This 80 year old WHITE/ M was hospitalized 03/17/16. The patient has had no fever since admission. He still has a cough productive of phlegm. He is breathing better/shortness of breath improved. REVIEW OF SYSTEMS: CONSTITUTIONAL: No fever, no chills. ENDOCRINE: No weight loss or weight gain. HEENT: No sinus drainage, no sore throat. CVS: No angina symptoms. No CHF symptoms. No palpitations. No atypical chest pain for CAD. Shortness of breath on minimal exertion, less. RESPIRATORY: No cough, no hemoptysis. GI: No melena. No abdominal pain. No nausea, no vomiting. : No hematuria. No polyuria. SKIN: No rash. No wounds. MUSCULOSKELETAL: No pain. ICEBOX MAN: No blackout, no dizziness. No headache. No double vision. PSYCHIATRIC: Not anxious; no depression. No suicidal thoughts. No homicidal thoughts. PHYSICAL EXAMINATION: GENERAL: Lying in bed in no distress. VITAL SIGNS: Temperature 97.5 F, Pulse 62, Respiratory Rate 14, BP 104/59, Pulse Ox 89% HEENT: Normocephalic, atraumatic. Mucosa is dry, pallor positive. NECK: No JVP, no carotid bruit. No lymphadenopathy. CARDIAC: S1, S2, no S3. No murmur, gallop or regurgitation. LUNGS: Decreased entry with basilar crackles. ABDOMEN: Soft, non-tender. Bowel sounds active. No rigidity, guarding or CVA tenderness. EXTREMITIES: 2+ edema. No clubbing, cyanosis. NEUROLOGIC: Awake, alert and oriented x3. LYMPHATIC: No palpable lymph nodes SKIN: Not dry. Intact. MUSCULOSKELETAL: No joint swelling. LAB REVIEW: 03/19/16 04:00 03/19/16 04:00 03/19/16 04:00: WBC 11.98 H, RBC 4.30 L, Hgb 13.4 L, Hct 42.6, MCV 99.1 H, MCH 31.2 H, MCHC 31.5 L, RDW Coeff of Leonardo 13.0, Plt Count 308, Immature Gran % (Auto ) 0.4, Neut % (Auto) 85.9, Lymph % (Auto) 9.7 L, [place] % (Auto) 3.9, Eos % (Auto ) 0.0, Baso % (Auto) 0.1, Immature Gran # (Auto) 0.1, Neut # 10.3 H, Lymph # 1.2 , [place] # 0.5, Eos # 0.0, Baso # 0.0, Sodium 138, Potassium 4.4, Chloride 101, Carbon Dioxide 28, Anion Gap 13.4, BUN 22 H, Creatinine 0.96, Estimated GFR ( MDRD) 76.00, BUN/Creatinine Ratio 22.91, Glucose 198 H, Calcium 8.9, Total Bilirubin 0.39, AST 25, ALT 24, Alkaline Phosphatase 52 L, Total Protein 7.0, Albumin 2.7 L, Globulin 4.3, Albumin/Globulin Ratio 0.63 ASSESSMENT: 1. COPD exacerbation secondary to the bronchitis and Flu A 2. Hypoxemia secondary to COPD and bronchitis 3. History of Coronary artery disease 4. Congestive heart failure 5. Hypertension 6. Dependant edema PLAN: 1. Lasix 20 mg IV push 2. Start Medrol Dosepak 3. Stop IV fluids Plan and coordination of the patient's care discussed in the presence of Internet Sales Consultant and nurse. CONDITION: Stable SCRIBED BY: JOCELINE VINSON Loading Unit Operator Seating scribed while in presence of service performed by Dr. AZALEA LONDON on 03/19/16 (0802)
[2016-03-19] MEDS: PRAVACHOL PO SCH (20:18)
[2016-03-20] MEDS: DUONEB NEB SCH ×3 (00:26→11:50)
[2016-03-20 05:12] LABS: BASOPHILS % (AUTO) 0.2 % (0.0-3.0); HEMATOCRIT 42.7 % (42.0-52.0); HEMOGLOBIN 13.4 g/dl (14.0-18.0); IMMATURE GRANULOCYTE % (AUTO) 0.3 % (0.0-5.0); LYMPHOCYTES # (AUTO) 1.6 K/uL (0.60-3.4); LYMPHOCYTES % (AUTO) 12.2 (10.0-50.0); MEAN CORPUSCULAR HEMOGLOBIN 30.9 pg (27.0-31.0); MEAN CORPUSCULAR HGB CONC 31.4 (31.8-35.4); MEAN CORPUSCULAR VOLUME 98.4 fl (80.0-94.0); MONOCYTES # (AUTO) 0.7 K/uL (0.4-2.0); MONOCYTES % (AUTO) 5.7 (0-10); NEUTROPHILS # (AUTO) 10.5 K/ul (2.0-6.9); NEUTROPHILS % (AUTO) 81.6; PLATELET COUNT 331 10^3/uL (140-440); RED BLOOD COUNT 4.34 10^6/ul (4.70-6.10); WHITE BLOOD COUNT 12.92 K/ul (4.2-10.2)
[2016-03-20] MEDS: MEDROL DOSEPAK PO SCH ×2 (05:34→12:13)
[2016-03-20] MEDS: LASIX TAB PO SCH (05:34)
[2016-03-20] MEDS: SYNTHROID PO SCH (05:34)
[2016-03-20 05:42] LABS: ALBUMIN 2.7 g/dL (3.4-5.0); ALBUMIN/GLOBULIN RATIO 0.66; ANION GAP 13.1; BILIRUBIN,TOTAL 0.43 mg/dL (0.00-1.20); BUN/CREATININE RATIO 25.53; CALCIUM 8.5 mg/dL (8.2-10.2); CREATININE 0.94 mg/dL (0.60-1.10); POTASSIUM 4.1 mmol/L (3.5-5.1); TOTAL PROTEIN 6.8 g/dL (5.8-8.1)
[2016-03-20] MEDS: ZESTRIL PO SCH (08:09)
[2016-03-20] MEDS: FLOMAX PO SCH (08:09)
[2016-03-20] MEDS: ROCEPHIN 1 GM in SODIUM CHLORIDE 50 ML IV SCH (08:10)
[2016-03-20] MEDS: TAMIFLU PO SCH (08:10)
[2016-03-20] MEDS: COREG PO SCH (08:10)
[2016-03-20] MEDS: LUMIGAN OP SCH (08:11)
[2016-03-20 10:32] VITALS: BP 120/70; TEMP 98
[2016-03-20] MEDS: LEVAQUIN 500 MG in PREMIX 100 ML D5W 1 BAG IV SCH ×2 (11:00→11:39)
--- NOTE | 2016-03-20 12:28 | PCM.PROG ---
Attending Provider: ATTENDING PROVIDER: Dr. AZALEA LONDON DATE OF SERVICE: 03/20/16 SUBJECTIVE: This 80 year old WHITE/ M was hospitalized 03/17/16. The patient walked yesterday and states he feels pretty good today. The patient has had a bowel movement. He has less shortness of breath. No fever, no chills. REVIEW OF SYSTEMS: CONSTITUTIONAL: No fever, no chills. ENDOCRINE: No weight loss or weight gain. HEENT: No sinus drainage, no sore throat. CVS: No angina symptoms. No CHF symptoms. No palpitations. No atypical chest pain for CAD. Less shortness of breath. No PND, no orthopnea. RESPIRATORY: No cough, no hemoptysis. GI: No melena. No abdominal pain. No nausea, no vomiting. : No hematuria. No polyuria. SKIN: No rash. No wounds. MUSCULOSKELETAL: No pain. MANAGED SERVICES CONSULTANT: No blackout, no dizziness. No headache. No double vision. PSYCHIATRIC: Not anxious; no depression. No suicidal thoughts. No homicidal thoughts. PHYSICAL EXAMINATION: GENERAL: Lying in bed in no distress. VITAL SIGNS: Temperature 97.9 F, Pulse 82, Respiratory Rate 17, BP 140/76, Pulse Ox 92% HEENT: Normocephalic, atraumatic. Mucosa is dry, pallor positive. NECK: No JVP, no carotid bruit. No lymphadenopathy. CARDIAC: S1, S2, no S3. No murmur, gallop or regurgitation. LUNGS: Clear to auscultation. ABDOMEN: Soft, non-tender. Bowel sounds active. No rigidity, guarding or CVA tenderness. EXTREMITIES: No clubbing, cyanosis or edema. NEUROLOGIC: Awake, alert and oriented x3. LYMPHATIC: No palpable lymph nodes SKIN: Not dry. Intact. MUSCULOSKELETAL: No joint swelling. LAB REVIEW: 03/20/16 04:55 03/20/16 04:55 03/20/16 04:55: WBC 12.92 H, RBC 4.34 L, Hgb 13.4 L, Hct 42.7, MCV 98.4 H, MCH 30.9, MCHC 31.4 L, RDW Coeff of Leonardo 12.9, Plt Count 331, Immature Gran % (Auto) 0.3, Neut % (Auto) 81.6, Lymph % (Auto) 12.2, [place] % (Auto) 5.7, Eos % (Auto) 0.0, Baso % (Auto) 0.2, Immature Gran # (Auto) 0.0, Neut # 10.5 H, Lymph # 1.6, [place] # 0.7, Eos # 0.0, Baso # 0.0, Sodium 138, Potassium 4.1, Chloride 98, Carbon Dioxide 31, Anion Gap 13.1, BUN 24 H, Creatinine 0.94, Estimated GFR ( MDRD) 77.00, BUN/Creatinine Ratio 25.53, Glucose 158 H, Calcium 8.5, Total Bilirubin 0.43, AST 26, ALT 28, Alkaline Phosphatase 53 L, Total Protein 6.8, Albumin 2.7 L, Globulin 4.1, Albumin/Globulin Ratio 0.66 ASSESSMENT: 1. COPD exacerbation secondary to the bronchitis and Flu A 2. Hypoxemia secondary to COPD and bronchitis 3. History of Coronary artery disease 4. Congestive heart failure 5. Hypertension 6. Dependant edema PLAN: 1. Keflex 500 b.i.d. times 5 days 2. Continue Medrol Dosepak EDUCATION CARRIED OUT ABOUT: Discussed with the patient about the need for continued oxygen at home and the patient voices understanding and is agreeable. Case Management will arrange for needed equipment with [employer]. Plan and coordination of the patient's care discussed in the presence of Consultant Intern and nurse. CONDITION: Stable SCRIBED BY: JOCELINE VINSON Check Airman scribed while in presence of service performed by Dr. AZALEA LONDON on 03/20/16 (0800)
--- NOTE | 2016-03-20 13:13 | CM.DICTOOL ---
ADMISSION: 03/17/16 18:19 DISCHARGE: 03/20/16 DATE OF SERVICE: 03/20/16 FINAL DIAGNOSIS INFLUENZA A HISTORY OF UTI WITH ALTON TREVINO (03/04/16) COPD HYPOTHYROIDISM DYSLIPIDEMIA HYPERTENSION CHRONIC LEG EDEMA DDD-SPINE FORMER SMOKER TONSILLECTOMY LAST VITALS Temp Pulse Resp BP Pulse Ox 97.9 F 82 17 140/76 92 L 03/20/16 05:35 03/20/16 05:35 03/20/16 05:35 03/20/16 05:35 03/20/16 05:35 ACTIVE HOME MEDICATIONS Albuterol Sulfate (Proair Hfa) 2 puffs IH q6H Albuterol Sulfate (Proair Hfa) 2 puffs IH q4 PRN Bimatoprost (Lumigan) 1 drop OP DAILY [facility] Last Admin: 03/20/16 08:11 Dose: 1 drop Brinzolamide/Brimonidine Tart (Simbrinza 1%-0.2% Eye Drops) 8 ml OP DAILY Budesonide/Formoterol Fumarate (Symbicort 160-4.5 mcg Inhaler) 2 puffs IH BID Carvedilol (Coreg) 3.125 mg PO BIDWM [facility] Last Admin: 03/20/16 08:10 Dose: 3.125 mg Furosemide (Lasix Tab) 40 mg PO QDAC [facility] Last Admin: 03/20/16 05:34 Dose: 40 mg Levothyroxine Sodium (Synthroid) 100 mcg PO QDAC [facility] Last Admin: 03/20/16 05:34 Dose: 100 mcg Lisinopril (Zestril) 2.5 mg PO BID [facility] Last Admin: 03/20/16 08:09 Dose: 2.5 mg Methylprednisolone (Medrol Dosepak) 4 mg PO 0630 [facility] PRN Reason: Taper Stop: 03/24/16 09:59 Last Admin: 03/20/16 05:34 Dose: 4 mg Oseltamivir Phosphate (Tamiflu) 75 mg PO Q12HR [facility] Last Admin: 03/20/16 08:10 Dose: 75 mg Pravastatin Sodium (Pravachol) 40 mg PO BEDTIME [facility] Last Admin: 03/19/16 20:18 Dose: 40 mg Tamsulosin HCl (Flomax) 0.4 mg PO DAILY [facility] Last Admin: 01/19/17 08:09 Dose: 0.4 mg denotes medications initiated during this stay that will be continued after discharge ALLERGIES No Known Allergies Allergy (Verified 03/17/16 15:45) NEW PRESCRIPTIONS: COMPLETE THE TAMIFLU (OSELTAMIVIR PHOSPHATE) DIRECTED KEFLEX 500 MG, TAKE ONE TABLET BY MOUTH TWICE DAILY FOR 5 (FIVE) DAYS. COMPLETE ALL MEDICATIONS IN THIS PRESCRIPTION DIRECTED MEDROL DOSE YENY, TAKE DIRECTED TO FINISH THE COURSE ([facility]) OXYGEN AT 2L/NC FROM [facility] (SATS 87% AT REST ON ROOM AIR) SMOKING: NONSMOKER AVOID SECONDHAND SMOKE DISEASE SPECIFIC EDUCATION: INFLUENZA A HOME MEDICATIONS NEW MEDICATIONS FOLLOW UP LAB REVIEW: 03/20/16 04:55 03/20/16 04:55 03/20/16 04:55: WBC 12.92 H, RBC 4.34 L, Hgb 13.4 L, Hct 42.7, MCV 98.4 H, MCH 30.9, MCHC 31.4 L, RDW Coeff of Leonardo 12.9, Plt Count 331, Immature Gran % (Auto) 0.3, Neut % (Auto) 81.6, Lymph % (Auto) 12.2, [place] % (Auto) 5.7, Eos % (Auto) 0.0, Baso % (Auto) 0.2, Immature Gran # (Auto) 0.0, Neut # 10.5 H, Lymph # 1.6, [place] # 0.7, Eos # 0.0, Baso # 0.0, Sodium 138, Potassium 4.1, Chloride 98, Carbon Dioxide 31, Anion Gap 13.1, BUN 24 H, Creatinine 0.94, Estimated GFR ( MDRD) 77.00, BUN/Creatinine Ratio 25.53, Glucose 158 H, Calcium 8.5, Total Bilirubin 0.43, AST 26, ALT 28, Alkaline Phosphatase 53 L, Total Protein 6.8, Albumin 2.7 L, Globulin 4.1, Albumin/Globulin Ratio 0.66 PLAN: DISCHARGE HOME TODAY RETURN TO SEE DR. LONDON IN 5-7 DAYS. PLEASE PHONE THE OFFICE TO SCHEDULE YOUR FOLLOW UP APPOINTMENT [phone] RESUME YOUR HOME MEDICATIONS COMPLETE THE TAMIFLU (OSELTAMIVIR PHOSPHATE) DIRECTED NEW PRESCRIPTIONS: KEFLEX 500 MG, TAKE ONE TABLET BY MOUTH TWICE DAILY FOR 5 (FIVE) DAYS. COMPLETE ALL MEDICATIONS IN THIS PRESCRIPTION DIRECTED OXYGEN AT 2L/NC CONTINUOUS PROVIDED BY LINDSAY SAINI, TAKE DIRECTED TO FINISH THE COURSE ([facility]) ACTIVITY: GET PLENTY OF REST AT HOME. GRADUALLY INCREASE YOUR ACTIVITY LEVEL ACCORDING TO YOUR TOLERATION DIET: HEALTHY HEART SUMMARY: THE PATIENT IS ALERT AND ORIENTED X3. HE CURRENTLY RESIDES AT HOME ALONE. HE DESIRES TO RETURN HOME AT DISCHARGE. HIS "GIRLFRIEND" IS SUPPORTIVE OF HIS NEEDS AND PROVIDES MEALS AND LIGHT HOMEMAKING CHORES FREQUENTLY. HE HAS A CANE AT HOME BUT TELLS ME HE IS ABLE TO BE AMBULATORY WITHOUT USE OF ASSISTIVE DEVICES. HE DENIES HAVING HOME HEALTH SERVICES. HIS SKIN TURGOR IS INTACT AND WITHOUT DECUBITUS ULCERS. HE CONTINUES TO HAVE SIGNIFICANT LOWER EXTREMITY EDEMA THAT HAS IMPROVED SOME WITH ELEVATION AND DIURESIS. HE IS DISCHARGED AFEBRILE AND AGREEABLE WITH DISCHARGE PLANS. AZALEA LONDON M.D.
--- NOTE | 2016-03-21 11:33 | ECHO2D ---
Date of Exam: 03/20/16 Ordering Physician: AZALEA LONDON Reason for Echo: SOB, HYPERTENSION, EDEMA M-Mode Normal Adult Results LV Dimensions Normal Adult Results AoV Opening excursions >1.6 >1.6 LVEDD-base- 3.5-5.8 3.8 Ao root dimensions 2.0-3.7 3.2 LVESD-base- 3.1-4.6 L. Atrium dimensions 1.9-3.8 3.7 Post. Wall thickness 0.8-1.1 1.2 IV septum (thickness) 0.7-1.2 1.2 Post. Wall excursion 0.72-1.3 NORMAL Septal motion NORMAL Systolic motion R. Ventricular cavity 1.5-2.0 3.0 LVEF 60% 58% Paradoxical septal wall motion NORMAL 2-D :2-D M Mode Echocardiogram was performed using apical four chamber and left parasternal long and short axis views. Mitral, tricuspid and aortic valves appear to be normal. Contractility of the left ventricle seems to be normal, so is the cavity size. Left atrial cavity size and aortic root appear to be normal. There is no pericardial effusion. There is no thrombus noted in the left ventricular or left aortic cavity. No mitral valve prolapse noted. M-MODE: MV: NORMAL AV: NORMAL TV: NORMAL PV: CHAMBER SIZE: NORMAL WALL MOTION: NORMAL PERICARDIUM: NORMAL INTERPRETATION: 1. BORDERLINE LEFT VENTRICULAR HYPERTROPHY 2. NORMAL VALVES 3. NORMAL LEFT VENTRICULAR CONTRACTILITY MTDD
--- NOTE | 2016-05-02 14:53 | DS ---
DATE OF SERVICE: 03/20/16 FINAL DIAGNOSIS: 1. INFLUENZA A 2. HISTORY OF UTI WITH GEMINILLLaura PLANTICOLA (03/04/16) 3. COPD 4. HYPOTHYROIDISM 5. DYSLIPIDEMIA 6. HYPERTENSION 7. CHRONIC LEG EDEMA 8. DDD-SPINE 9. FORMER SMOKER 10. TONSILLECTOMY LAST VITAL SIGNS: Temperature 97.9, pulse 82, respirations 17, BP 140/76, pulse ox 92% DISCHARGE INSTRUCTIONS: Followup appointment: Return to see Dr. Williamson in 5 to 7 days. Please phone the office to schedule followup appointment. MEDICATIONS AT DISCHARGE: 1. Bimatoprost (Lumigan) one drop OP daily 2. Albuterol (ProAir) two puff IH q.4h p.r.n. 3. Budesonide/Formoterol two puff IH b.i.d. 4. Tamsulosin 0.4 mg p.o. daily 5. Furosemide 40 mg p.o. q.d a.c. 6. Carvedilol 3.125 mg p.o. b.i.d with meal 7. Pravastatin/Pravachol 40 mg p.o. bedtime 8. Levothyroxine (Synthroid) 100 mcg p.o. q.d. a.c. 9. Lisinopril 2.5 mg p.o. b.i.d. 10. Complete the Tamiflu (Oseltamivir Phosphate) as directed NEW PRESCRIPTIONS: 1. Keflex 500 mg take one tablet by mouth twice daily for 5 days 2. Medrol Dosepak, take as directed to finish the course ([facility]) 3. Oxygen at 2L/NC from [facility] (sats 87% at rest on room air) DIET INSTRUCTIONS: Healthy Heart ACTIVITY: Get plenty of rest at home. Gradually increase your activity level according to your toleration. SMOKIN. Nonsmoker 2. Avoid secondhand smoke DISEASE SPECIFIC EDUCATION: 1. Influenza A 2. Home medications 3. New medications 4. Followup HOSPITAL COURSE: This is a 80-year-old male who came to the emergency room with shortness of breath, cough and congestion. He was seen by Dr. Mendiola in the emergency room. Evaluation showed white count of 13,000; D. dimer was negative. ABG showed pH 7.371, pc02 44.2, p02 56. BUN and creatinine were normal. BNP was less than 10. Chest x-ray - no acute cardiopulmonary process. The patient was admitted to the hospital, started on IV fluids, antibiotics, Rocephin, Azithromycin, Duonebs and steroids. With the given treatment, he was gradually feeling better. ABGs, repeat, also showed p02 58 - did not change much. Two sets of cardiac enzymes were negative. Hemoglobin stayed steady. Pulmonary function test was done, which showed FEV1 to FVC 56, moderate COPD. Meanwhile, the patient was still short of breath so was evaluated for home oxygen. Jaylin, from the Cardiopulmonary Department, came and saw the patient at rest. On room air it was 87 so he did not qualify for home oxygen. The patient was put on oxygen and explained about the highly inflammable status of oxygen and use of oxygen. The patient was ambulatory with leg edema improving. Shortness of breath was better, still had some cough. At that time, the patient was discharged home. TIME SPENT ON THE PATIENT: More than 45 minutes. KENTRELL
== END 2016-03-20 13:50 | disposition home or self-care (01) | DRG 194 ==
LOC: ED 15:41 → MERGE 18:19 → MEDSURG B 18:19
PROVIDERS: ADMIT Emergency Medicine; ATTEND Emergency Medicine
DX: J09.X2 Influenza due to identified novel influenza A virus with other respiratory manifestations (principal); J44.1 Chronic obstructive pulmonary disease with (acute) exacerbation; R09.02 Hypoxemia; R06.02 Shortness of breath; I10 Essential (primary) hypertension; I50.9 Heart failure, unspecified; I25.10 Atherosclerotic heart disease of native coronary artery without angina pectoris; R60.0 Localized edema; E03.9 Hypothyroidism, unspecified; Z87.891 Personal history of nicotine dependence; Z87.440 Personal history of urinary (tract) infections; Z79.899 Other long term (current) drug therapy; Z99.81 Dependence on supplemental oxygen; J44.9 Chronic obstructive pulmonary disease, unspecified
CPT/HCPCS: 36415; 80053; 82550; 82553; 82803; 83605; 83880; 84484; 85025; 85379; 87040; 87651; 87880; 93005; 93010; 94640; 94761; 99284

== ENCOUNTER 2016-08-06 10:11 | Inpatient (IN) | payer OTHER ==
[2016-08-06 10:15] VITALS: BMI 35.2
[2016-08-06] MEDS ORDERED: SOLU-MEDROL 125 MG IVP STA (10:15)
--- NOTE | 2016-08-06 10:24 | ED.PDOC ---
General ED Provider: Dr. LAURA AVALOS Chief Complaint: Shortness of Air Stated Complaint: short of air Time Seen by Physician: 10:12 (2 days progressively worse) Mode of Arrival: Wheelchair Information Source: Patient, Family Exam Limitations: No limitations Primary Care Provider: MACKENZIE JERRY Nursing and Triage Documentation Reviewed and Agree: Yes Respiratory Complaint Exam - Respiratory Complaint/Exam Onset/Duration: 3 days Symptoms Are: Still present Timing: Intermittent Initial Severity: Moderate Current Severity: Moderate Location: Chest Character: Reports: Non-productive cough Aggravating: Reports: Recumbent position Alleviating: Reports: Bronchodilators Associated Signs and Symptoms: Denies: Rapid breathing, Dyspnea, Fever, Chills, Chest pain, Pleuritic chest pain, Wheezing, Hemoptysis, Dizziness, Calf pain, Calf swelling, Edema, URI, Nasal congestion, Hoarseness, Sinus discomfort, Vomiting, Sore throat, Weight loss, Decreased oral intake, Increased thirst, Increased appetite, Increased urination History of Healthcare-Acquired Pneumonia: No Related Surgical History: Reports: None Pulmonary Embolism Risk Factors: Bedrest Cardiac Risk Factors: Reports: Elevated lipids, Hypertension Pseudomonas Risk Factors: Reports: Chronic Lung Disease (COPD) Tuberculosis Risk Factors: Reports: None Status Asthmaticus Risk Factors: Reports: None Home Oxygen Use: No Recent Stress Test: No Recent Echo/LV Function: No Current Antibiotic Use: No Current Asthma Medication Use: No Respiratory Distress: Mild Inadequate Respiratory Effort: No Dysphagia Present: No Stridor Present: No JVD Present: No Retractions: Not Present Diminished Breath Sounds: Yes ( UPPER AND LOWER RIGHT AND LEFT ) Sinus Tenderness: None Differential Diagnoses: CHF, Pulmonary Edema, COPD Exacerbation, Pneumonia, Pneumothorax, Pulmonary Embolism, Bronchitis, Lower Resp. Infection Non-Traumatic Chest Pain Syncope: EKG Performed Review of Systems - Review Of Systems Constitutional: Reports: Malaise, Weakness Eyes: Reports: No symptoms Ears, Nose, Mouth, Throat: Reports: No symptoms Respiratory: Reports: Cough, Short of air, Wheezing Cardiac: Reports: No symptoms GI: Reports: No symptoms : Reports: No symptoms Musculoskeletal: Reports: No symptoms Skin: Reports: No symptoms Neurological: Reports: No symptoms Endocrine: Reports: No symptoms Hematologic/Lymphatic: Reports: No symptoms All Other Systems: Reviewed and Negative Past Medical History - Past Medical History Endocrine: Reports: Hypothyroid, Dyslipidemia Cardiovascular: Reports: None Respiratory: Reports: COPD Hematological: Reports: None Gastrointestinal: Reports: None Genitourinary: Reports: None Neuro/Psych: Reports: None Musculoskeletal: Reports: None Cancer: Reports: None - Surgical History General Surgical History: Reports: Tonsillectomy - Family History Family History: Reports: Unknown - Social History Smoking Status: Former smoker Hx Substance Use: No Alcohol Screening: None - Immunizations Influenza Vaccine within 12 Months: Yes (NOVEMBER) Pneumococcal Vaccine up to Date: Yes (ONE A LONG TIME AGO, ONE ONE OR TWO YEARS AGO) Physical Exam - Physical Exam Appearance: Ill-appearing Ill-appearing: Moderate Pain Distress: Moderate Eyes: NATHAN, EOMI, Conjunctiva clear ENT: Ears normal, Nose normal, Oropharynx normal Respiratory: Wheezes Cardiovascular: RRR, Pulses normal, No rub, No murmur GI/: Soft, Nontender, No masses, Bowel sounds normal, No Organomegaly Musculoskeletal: Normal strength, ROM intact, No edema, No calf tenderness Skin: Warm, Dry, Normal color Neurological: Sensation intact, Motor intact, Reflexes intact, Cranial nerves intact, Alert, Oriented Psychiatric: Affect appropriate, Mood appropriate Physician Notification - Case Discussed Physician Notified: jerry Time of Notification: 14:23 Admit To: Inpatient Critical Care Note - Critical Care Note Total Time (mins): 0 Course - Course Hematology/Chemistry: 08/06/16 10:45 08/06/16 10:45 Orders, Labs, Meds: Lab Review 08/06/16 08/06/16 10:20 10:45 WBC 8.40 RBC 4.89 Hgb 15.6 Hct 47.2 MCV 96.5 H MCH 31.9 H MCHC 33.1 RDW Coeff of Leonardo 13.0 Plt Count 225 Immature Gran % (Auto) 0.2 Neut % (Auto) 64.1 Lymph % (Auto) 25.8 [place] % (Auto) 7.0 Eos % (Auto) 2.3 Baso % (Auto) 0.6 Immature Gran # (Auto) 0.0 Neut # 5.4 Lymph # 2.2 [place] # 0.6 Eos # 0.2 Baso # 0.1 D-Dimer (Manual) 1444.73 Puncture Site R rad O2 Saturation 94.0 L ABG pH 7.454 H ABG pCO2 47.7 H ABG pO2 70.0 L ABG HCO3 33.4 H ABG Total CO2 35 H ABG Base Excess 9 H Alfonzo Test + FiO2 % 21.0 Sodium 140 Potassium 4.1 Chloride 97 L Carbon Dioxide 35 H Anion Gap 12.1 BUN 20 H Creatinine 1.04 Estimated GFR (MDRD) 69.00 BUN/Creatinine Ratio 19.23 Glucose 112 Lactic Acid 10.6 Calcium 9.7 Total Bilirubin 1.11 AST 22 ALT 26 Alkaline Phosphatase 59 Total Creatine Kinase 95 Troponin I 0.0100 B-Natriuretic Peptide 14 Total Protein 8.4 H Albumin 3.9 Globulin 4.5 Albumin/Globulin Ratio 0.87 Procalcitonin < 0.05 Orders Category Date Time Status ABG DRAW REQUEST Stat CARDIO 08/06/16 10:15 Completed EKG-(ED ONLY) Stat CARDIO 08/06/16 10:14 Completed NEBULIZER TREATMENT Stat CARDIO 08/06/16 10:14 Completed NPO REMINDER: IMAGING ONCE CARE 08/06/16 12:52 Ordered ED IV/MEDIPORT/POWERPORT .ONCE EMERGENCY 08/06/16 10:14 Active ABG Stat LAB 08/06/16 10:20 Completed B-TYPE NATRIURETIC PEPTIDE Stat LAB 08/06/16 10:45 Completed BLOOD CULTURE Stat LAB 08/06/16 10:45 Received CBC W/ AUTO DIFF Stat LAB 08/06/16 10:45 Completed COMPREHENSIVE METABOLIC PANEL Stat LAB 08/06/16 10:45 Completed CREATINE KINASE Stat LAB 08/06/16 10:45 Completed D-DIMER Stat LAB 08/06/16 10:45 Completed LACTIC ACID Stat LAB 08/06/16 10:45 Completed PROCALCITONIN Stat LAB 08/06/16 10:45 Completed TROPONIN I Stat LAB 08/06/16 10:45 Completed 0.9 % Sodium Chloride [Saline Flush] MEDS 08/06/16 10:13 Active 1 syr IVF PRN PRN Ipratropium/Albuterol Neb [Duoneb] MEDS 08/06/16 10:32 Discontinued 1 vial NEB ONCE STA Methylprednisolone Sod Succ/Pf [Solu-Medrol 125 mg] MEDS 08/06/16 10:15 Discontinued 250 mg IVP ONCE STA CHEST, 1V AP ONLY Stat RADS 08/06/16 10:[address] CHEST PE PROTOCOL Stat RADS 08/06/16 12:51 Ordered U/S VENOUS SCAN MIGUE LEGS Stat RADS 08/06/16 10:17 Completed Medications Generic Name Dose Route Start Last Admin Trade Name Freq PRN Reason Stop Dose Admin Sodium Chloride 1 syr 08/06/16 10:13 08/06/16 10:34 Saline Flush IVF 1 syr PRN PRN Administration To flush IV Discontinued Medications Generic Name Dose Route Start Last Admin Trade Name Anny PRN Reason Stop Dose Admin Albuterol/Ipratropium 1 vial 08/06/16 10:32 08/06/16 10:34 Duoneb NEB 08/06/16 10:33 1 vial ONCE STA Administration Methylprednisolone Sodium Succinate 250 mg 08/06/16 10:15 08/06/16 10:32 Solu-Medrol 125 Mg IVP 08/06/16 10:16 250 mg ONCE STA Administration Vital Signs: Temp Pulse Resp BP Pulse Ox 08/06/16 10:12 98.2 F 74 36 H 143/87 H 95 Departure - Departure Time of Disposition: 14:23 Disposition: ADMITTED INPATIENT Discharge Problem: Shortness of breath, COPD exacerbation Instructions: COPD (Chronic Obstructive Pulmonary Disease) (ED), How Your Lungs Work (ED) Condition: Fair Pt referred to PMD for follow-up: Yes Additional Instructions: Please call your Family Physician as soon as possible to schedule a follow-up appointment. Allergies/Adverse Reactions: Allergies No Known Allergies Allergy (Verified 08/06/16 10:17) Home Medications: Ambulatory Orders Albuterol Sulfate [Proair Hfa] 2 puff IH Q6H #1 inhaler 03/14/16 Bimatoprost Opth [Lumigan] 1 drop OP DAILY 03/14/16 Carvedilol [Coreg] 3.125 mg PO BIDWM 03/14/16 Furosemide [Lasix Tab] 40 mg PO QDAC 03/14/16 Levothyroxine Sodium [Synthroid] 100 mcg PO QDAC 03/14/16 Lisinopril 2.5 mg PO BID 03/14/16 Pravastatin Sodium [Pravachol] 40 mg PO BEDTIME 03/14/16 Tamsulosin HCl [Flomax] 0.4 mg PO DAILY 03/14/16 Brinzolamide [Azopt] 1 drop OP BID 08/06/16 Diclofenac Sodium 1 drop OP TID 08/06/16 Prednisolone Opth Susp [Pred Forte 1% Opth Unique] 1 drop OP TID 08/06/16 Disposition Discussed With: Patient, Family
[2016-08-06 10:30] LABS: ABG BASE EXCESS 9 (-2.0-2.0); ABG HCO3 33.4 (22.0-26.0); ABG PCO2 47.7 mmHg (35-45); ABG PH 7.454 (7.35-7.45); ABG TCO2 35 (22.0-28.0)
[2016-08-06] MEDS ORDERED: DUONEB NEB STA (10:32)
--- NOTE | 2016-08-06 10:39 | DI ---
EXAM: Single view of the chest. History: Short of breath Comparison: Chest radiograph 03/19/2016 Findings: Heart is enlarged. Bibasilar lung infiltrates. No definite pleural fluid and no pneumot horax. No acute osseous abnormalities. Atherosclerotic vascular calcifications. Impression: Cardiomegaly and bibasilar lung infiltrates
[2016-08-06 10:57] LABS: BASOPHILS # (AUTO) 0.1 K/uL (0-0.2); BASOPHILS % (AUTO) 0.6 % (0.0-3.0); EOSINOPHILS # (AUTO) 0.2 K/ul (0.0-0.7); EOSINOPHILS % (AUTO) 2.3 % (0.0-7.0); HEMATOCRIT 47.2 % (42.0-52.0); HEMOGLOBIN 15.6 g/dl (14.0-18.0); IMMATURE GRANULOCYTE % (AUTO) 0.2 % (0.0-5.0); LYMPHOCYTES # (AUTO) 2.2 K/uL (0.60-3.4); LYMPHOCYTES % (AUTO) 25.8 (10.0-50.0); MEAN CORPUSCULAR HEMOGLOBIN 31.9 pg (27.0-31.0); MEAN CORPUSCULAR HGB CONC 33.1 (31.8-35.4); MEAN CORPUSCULAR VOLUME 96.5 fl (80.0-94.0); MONOCYTES # (AUTO) 0.6 K/uL (0.4-2.0); NEUTROPHILS # (AUTO) 5.4 K/ul (2.0-6.9); NEUTROPHILS % (AUTO) 64.1; PLATELET COUNT 225 10^3/uL (140-440); RED BLOOD COUNT 4.89 10^6/ul (4.70-6.10)
[2016-08-06 11:21] LABS: ALBUMIN 3.9 g/dL (3.4-5.0); ALBUMIN/GLOBULIN RATIO 0.87; ANION GAP 12.1; BILIRUBIN,TOTAL 1.11 mg/dL (0.00-1.20); BUN/CREATININE RATIO 19.23; CALCIUM 9.7 mg/dL (8.2-10.2); CREATININE 1.04 mg/dL (0.60-1.10); POTASSIUM 4.1 mmol/L (3.5-5.1); TOTAL PROTEIN 8.4 g/dL (5.8-8.1); TROPONIN I 0.01 ng/ml (0.0000-0.4000)
--- NOTE | 2016-08-06 12:11 | US ---
EXAM: Ultrasound venous Doppler bilateral lower extremity HISTORY: Edema, pain COMPARISON: None TECHNIQUE: Venous duplex ultrasound of the right and left lower extremity was performed using color , fregoso-scale, and Doppler flow imaging. FINDINGS: There is normal color flow compression of the right and left common femoral, greater saph enous, profunda femoral, femoral, popliteal, peronea veins without evidence of intraluminal thrombus . Anterior and posterior tibial veins are not visualized bilaterally. Bilateral subcutaneous edema. IMPRESSION: No right or left lower extremity deep venous thrombosis at the visualized levels.
--- NOTE | 2016-08-06 14:05 | CT ---
Exam: CTA chest with intravenous contrast. 3-D MIP reformats were provided for interpretation. Comparison: Chest x-ray performed on the same day. Reason for exam: Short of breath with elevated D-dimer. FINDINGS: Mild inflammatory changes and basilar atelectasis, right greater than left. No pneumothorax, pleural effusion, or focal consolidation. The heart is not enlarged. The aorta measures up to 3.5 cm with a normal arterial course. No main, proximal, or segmental pulmonary arterial filling defects. There is a 6.7 cm hepatic hypodensity seen on axial image number 92. There is also a second 1 cm he patic hypodensity seen on the same image. The partially imaged adrenal glands, spleen, and pancreas are grossly unremarkable. No osteoblastic or osteolytic lesions. There is degenerative disease in the thoracic spine. Impression: 1. No main, proximal, or segmental pulmonary arterial filling defects. 2. Inflammatory changes and basilar atelectasis. 3. 6.7 centimeter and 1 cm hepatic hypodensities. If clinical concern exists, further evaluation w ith ultrasound, contrasted CT examination , or MRI may be performed. Report faxed at [id number] hours on 08/06/2016.
[2016-08-06] MEDS ORDERED: SODIUM CHLORIDE 1,000 ML IV SCH (14:30)
[2016-08-06] MEDS: NON-FORMULARY MEDICATION (Albuterol Sulfate [Proair Hfa] 2 PUFF) IH SCH ×44 (16:56→20:30)
[2016-08-06] MEDS: PREDNISOLONE OPTH OP SCH ×42 (16:56→20:31)
[2016-08-06] MEDS: CARVEDILOL 3.125 MG PO SCH ×22 (16:56)
[2016-08-06] MEDS: DICLOFENAC SODIUM OP SCH ×2 (16:57→20:31)
[2016-08-06] MEDS: LASIX IVP STA (17:01)
[2016-08-06] MEDS: DUONEB NEB SCH ×2 (17:15→23:40)
[2016-08-06] MEDS: ROCEPHIN 1 GM in SODIUM CHLORIDE 50 ML IV SCH (17:25)
[2016-08-06] MEDS: BRINZOLAMIDE OP SCH (20:31)
[2016-08-06 20:54] LABS: TROPONIN I 0.015 ng/ml (0.0000-0.4000)
[2016-08-06] MEDS ORDERED: NON-FORMULARY MEDICATION (Pravastatin Sodium [Pravachol] 40 MG) PO SCH ×22 (21:00)
[2016-08-06] MEDS ORDERED: NON-FORMULARY MEDICATION (Lisinopril [Lisinopril] 2.5 MG) PO SCH ×22 (21:00)
[2016-08-06] MEDS: SOLU-MEDROL 125 MG IVP SCH (21:14)
[2016-08-07] MEDS: NON-FORMULARY MEDICATION (Albuterol Sulfate [Proair Hfa] 2 PUFF) IH SCH ×22 (01:57)
[2016-08-07 04:43] LABS: BASOPHILS % (AUTO) 0.1 % (0.0-3.0); HEMATOCRIT 42.3 % (42.0-52.0); HEMOGLOBIN 14.3 g/dl (14.0-18.0); IMMATURE GRANULOCYTE % (AUTO) 0.5 % (0.0-5.0); LYMPHOCYTES # (AUTO) 1.4 K/uL (0.60-3.4); LYMPHOCYTES % (AUTO) 13.8 (10.0-50.0); MEAN CORPUSCULAR HEMOGLOBIN 32.1 pg (27.0-31.0); MEAN CORPUSCULAR HGB CONC 33.8 (31.8-35.4); MEAN CORPUSCULAR VOLUME 95.1 fl (80.0-94.0); MONOCYTES # (AUTO) 0.1 K/uL (0.4-2.0); MONOCYTES % (AUTO) 1.2 (0-10); NEUTROPHILS # (AUTO) 8.3 K/ul (2.0-6.9); NEUTROPHILS % (AUTO) 84.4; PLATELET COUNT 225 10^3/uL (140-440); RED BLOOD COUNT 4.45 10^6/ul (4.70-6.10)
[2016-08-07 04:58] LABS: ALBUMIN 3.4 g/dL (3.4-5.0); ALBUMIN/GLOBULIN RATIO 1.06; ANION GAP 12.5; BILIRUBIN,TOTAL 0.68 mg/dL (0.00-1.20); BUN/CREATININE RATIO 22.68; CALCIUM 8.9 mg/dL (8.2-10.2); CREATININE 0.97 mg/dL (0.60-1.10); POTASSIUM 3.5 mmol/L (3.5-5.1); TOTAL PROTEIN 6.6 g/dL (5.8-8.1)
[2016-08-07 05:10] LABS: TROPONIN I 0.01 ng/ml (0.0000-0.4000)
[2016-08-07] MEDS: DUONEB NEB SCH ×4 (05:12→23:53)
[2016-08-07] MEDS ORDERED: LASIX TAB ONE (06:19)
[2016-08-07] MEDS ORDERED: SYNTHROID ONE (06:19)
[2016-08-07] MEDS: SYNTHROID PO SCH (06:28)
[2016-08-07] MEDS ORDERED: LASIX TAB PO SCH (06:30)
[2016-08-07] MEDS ORDERED: LEVOTHYROXINE SODIUM 100 MCG PO SCH ×22 (06:30)
[2016-08-07] MEDS ORDERED: NON-FORMULARY MEDICATION (Furosemide [Lasix Tab] 40 MG) PO SCH ×22 (06:30)
[2016-08-07] MEDS ORDERED: LUMIGAN OP SCH (09:00)
[2016-08-07] MEDS ORDERED: NON-FORMULARY MEDICATION (Tamsulosin Hcl [Flomax] 0.4 MG) PO SCH ×21 (09:00)
[2016-08-07] MEDS ORDERED: BIMATOPROST OPTH OP SCH ×22 (09:00)
[2016-08-07] MEDS: DICLOFENAC SODIUM OP SCH ×3 (09:06→21:27)
[2016-08-07] MEDS: LUMIGAN OP SCH (09:06)
[2016-08-07] MEDS: LASIX IVP SCH (09:06)
[2016-08-07] MEDS: SOLU-MEDROL 125 MG IVP SCH ×2 (09:08→21:21)
[2016-08-07] MEDS: LASIX IVP STA (09:09)
[2016-08-07] MEDS: CARVEDILOL 3.125 MG PO SCH ×22 (09:10)
[2016-08-07] MEDS: PREDNISOLONE OPTH OP SCH ×63 (09:11→21:27)
[2016-08-07] MEDS: ROCEPHIN 1 GM in SODIUM CHLORIDE 50 ML IV SCH (09:12)
[2016-08-07] MEDS: BRINZOLAMIDE OP SCH ×2 (09:13→21:26)
[2016-08-07] MEDS: PROAIR HFA IH SCH ×3 (09:14→21:25)
[2016-08-07] MEDS: ZESTRIL PO SCH ×2 (09:16→21:26)
[2016-08-07] MEDS: FLOMAX PO SCH (09:19)
--- NOTE | 2016-08-07 11:55 | PN ---
DATE OF SERVICE: 08/07/16 SUBJECTIVE: The patient was hospitalized yesterday with leg edema, shortness of breath, cough and congestion. The patient has exacerbation of COPD and possibility of pneumonitis. He has been on Rocephin. The patient's leg edema is +2 to +3. Today it is +1 to +2. The patient feels better and he wants to go home but the patient's edema is still to the point where it needs to be addressed. REVIEW OF SYSTEMS: CONSTITUTIONAL: No night sweats. No fatigue, malaise, lethargy. No fever or chills. HEENT: Eyes: No visual changes. No eye pain. No eye discharge. ENT: No runny nose. No epistaxis. No sinus pain. No sore throat. No odynophagia. No congestion. RESPIRATORY: No cough, no congestion. No hemoptysis. CARDIOVASCULAR: No angina symptoms. No CHF symptoms. No atypical chest pain for CAD. No palpitations. No shortness of breath. GASTROINTESTINAL: No abdominal pain. No nausea or vomiting. No diarrhea or constipation. No hematemesis. No hematochezia. GENITOURINARY: No urgency. No frequency. No dysuria. No hematuria. No obstructive symptoms. No discharge. No pain. No significant abnormal bleeding. MUSCULOSKELETAL: No musculoskeletal pain; no joint swelling. NEUROLOGICAL: No headache. No neck pain. No syncope. No seizures. No dizziness. PSYCHIATRIC: Not anxious. No depression. No suicidal thoughts. No homicidal thoughts. SKIN: No rash. No lesions. No wounds. ENDOCRINE: No unexplained weight loss. No weight gain. HEMATOLOGIC/LYMPHATIC: No anemia. No purpura. No petechiae. No prolonged or excessive bleeding. No palpable lymph nodes. PHYSICAL EXAMINATION: GENERAL: The patient is oriented to time, place and person VITAL SIGNS: Temperature 98, pulse 80, respiratory rate 15, blood pressure 138/ 78. HEENT: Head normocephalic, atraumatic. Eyes: Extraocular muscles are intact. Pupils are equal, round and reactive to light and accommodation. Ears: No lesions. Nose appeared normal. Throat: No exudate or erythema. NECK: Supple. No JVD, no carotid bruit. No lymphadenopathy or thyromegaly. LUNGS: Decreased breath sounds but clear with harsh breath sounds. Percussion note normal. Chest symmetrical. HEART: S1, S2, no S3. No murmurs. No cyanosis or clubbing. No ascites. Pulses: Dorsalis pedis and posterior tibial pulses +1 to +2 both sides. ABDOMEN: Protuberant. Soft. Nontender. Bowel sounds active. No CVA tenderness. No mass felt. EXTREMITIES: +2 pitting edema. Full range of motion of all extremities, equal. NEUROLOGIC: No focal deficit. Cranial nerves II through XII are grossly intact. No headache, no double vision or headache. SKIN: Not dry. Intact. Turgor - normal. LYMPHATIC: No palpable lymph nodes/no lymphedema. MUSCULOSKELETAL: Normal joints with no swelling. Muscle tone is normal. LABS: EKG sinus rhythm, pulmonary disease pattern. The patient has an echo done in March which showed normal LV contractility with mild LVH. ASSESSMENT: 1. 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 Severe chronic lung disease 3. Leg edema 4. Hypothyroidism PLAN: 1. The patient lives with the friend 2. The patient is non-compliant of diet 3. Diet discussed with him and counseling for diet done 4. The patient will get Lasix 40mg IV daily 5. Discontinue PO Lasix 6. Elevate the legs 7. Weigh daily CONDITION: Stable TIME SPENT: More than 30 minutes. Plan and coordination of the patient's care discussed in the presence of nurse. KENTRELL
--- NOTE | 2016-08-07 12:45 | CT ---
EXAM: CT ABDOMEN AND PELVIS HISTORY: Abdominal bloating and pain TECHNIQUE: CT abdomen and pelvis with intravenous contrast. Images were reconstructed using 5 mm se ction thickness. Reformations were prepared. 75 mL Omnipaque. COMPARISON: None FINDINGS: Liver has a 5.6 cm anterior right hepatic lobe low attenuation mass most consistent with a cyst. Th ere are a few tiny similar lesions seen in the left lobe. Spleen within normal limits. Gallbladder has internal high attenuation which is likely related to either stones, sludge or vicarious excreti on of intravenously administered contrast agent. Less likely blood product. Pancreas and adrenal g lands appear normal. A few tiny renal cortical cysts are suggested. No hydronephrosis. Moderate a therosclerotic disease with no aneurysmal caliber of the aorta. Stomach is grossly unremarkable. Normal appendix. Mild distal colon diverticulosis. Nonobstructiv e bowel gas pattern. Abundance of intraperitoneal fat is noted. There is mild prostate enlargement . Urinary bladder grossly unremarkable. No ascites or inflammatory infiltration of the abdominal f at. No abdominal wall hernia. Moderately severe degenerative changes of the spine with moderate scolios is. Lung bases reveal mild basilar scarring or atelectasis. No pneumoperitoneum. IMPRESSION: 1. Nonobstructive bowel gas pattern. Relative abundance of intraperitoneal fat is noted. No ascit es. 2. Gallbladder has internal high attenuation which is likely related to either stones, sludge or vi carious excretion of intravenously administered contrast agent. Unlikely to represent blood product . Correlation with ultrasound can be made if indicated. 3. Liver cysts. 4. Moderate atherosclerotic disease. 5. Mild distal colon diverticulosis. 6. Mild prostate enlargement.
--- NOTE | 2016-08-07 14:32 | HP ---
DATE OF SERVICE: 08/06/16 REASON FOR HOSPITALIZATION: Shortness of air HISTORY OF PRESENT ILLNESS: 81 year old white male came to the emergency room because he has been progressively getting worse, has been short of breath and the patient in the emergency room was noted to be mildly in respiratory distress with mild wheezing. Initially after he settled down breathing was quite. On further questioning the patient says that he is getting short of breath on minimal exertion. He is unable to lay down flat. REVIEW OF SYSTEMS: CONSTITUTIONAL: No night sweats. Weakness and fatigue. No fever or chills. HEENT: Eyes: No visual changes. No eye pain. No eye discharge. ENT: No runny nose. No epistaxis. No sinus pain. No sore throat. No odynophagia. No ear pain. No congestion. RESPIRATORY: Mild cough mostly clear sputum but unable to cough but has been coughing more intermittently more so for past two days. Yellowish tinge sputum at times but mostly clear. No hemoptysis. CARDIOVASCULAR: No angina symptoms. No CHF symptoms. No atypical chest pain for CAD. No palpitations. Shortness of breath on minimal exertion for past two days. Unable to get up. Pleuritic type of pain, right sided. GASTROINTESTINAL: No abdominal pain. No nausea or vomiting. No diarrhea or constipation. No hematemesis. No hematochezia. Poor appetite GENITOURINARY: No urgency. No frequency. No dysuria. No hematuria. No obstructive symptoms. No discharge. No pain. No significant abnormal bleeding. MUSCULOSKELETAL: No musculoskeletal pain. No joint swelling. No arthritis. Weakness of the muscle, swelling of the legs for past seven days. NEUROLOGICAL: No headache. No neck pain. No syncope. No seizures. No dizziness. PSYCHIATRIC: Not anxious. No depression. No suicidal thoughts. No homicidal thoughts. SKIN: No rash. No lesions. No wounds. ENDOCRINE: No unexplained weight loss. No weight gain. HEMATOLOGIC/LYMPHATIC: No anemia. No purpura. No petechiae. No prolonged or excessive bleeding. No palpable lymph nodes. PERSONAL/FAMILY/SOCIAL HISTORY: The patient living by himself with help of sister. Non-smoker used to smoke heavy before. No alcohol abuse. No other substance abuse. Does try to do all activity of daily living. PAST MEDICAL/SURGICAL PROBLEMS: Obesity Severe chronic lung disease Leg edema Hypertension Hypothyroidism Congestive heart failure Dyslipidemia Tonsillectomy The patient is non-compliant of medications, followups and diet MEDICATIONS: Albuterol 2 puff four times a day Lumigan 1 drop OP daily Coreg 3.125mg PO twice a day Lasix 40mg PO daily Synthroid 100mcg Po daily Lisinopril 2.5mg PO twice a day Pravastatin 40mg at bedtime Flomax 0.4mg PO at bedtime Pred Forte 1% opth solution one drop three times a day ALLERGIES: None PHYSICAL EXAMINATION: GENERAL: The patient is oriented to time, place and person. VITAL SIGNS: Temperature 97, pulse 62, respiratory rate 22, blood pressure 143/ 87 and pulse ox 97%. HEENT: Head normocephalic, atraumatic. Eyes: Extraocular muscles are intact. Pupils are equal, round and reactive to light and accommodation. Ears: No lesions. Nose appeared normal. Throat: No exudate or erythema. NECK: Supple. No JVD, no carotid bruit. No lymphadenopathy or thyromegaly. LUNGS: Decreased breath sounds with maybe mild wheeze. Diminished air entry. Percussion note normal. Chest symmetrical. HEART: S1, S2, no S3. No murmurs. No cyanosis or clubbing. No ascites. Pulses: Dorsalis pedis and posterior tibial pulses +1 to +2 bilateral sides. PMI not palpable. Increased A-P diameter of the chest. ABDOMEN: Protuberant. Soft. Nontender. Bowel sounds active. No CVA tenderness. No mass felt. EXTREMITIES: +2 to +3 pitting edema. Full range of motion of all extremities, equal. NEUROLOGIC: No focal deficit. Cranial nerves II through XII are grossly intact. No headache, no double vision or headache. SKIN: Not dry. Intact. Turgor - normal. LYMPHATIC: No palpable lymph nodes/no lymphedema. MUSCULOSKELETAL: Normal joints with no swelling. Muscle tone is normal. LABS: ABG pO2 70, pCO2 47, pH 7.45 with 94% saturation on room air, hgb 15.6, hct 47, WBC 8,400 normal differential, D-Dimer 1,444, creatinine 1, BUN 20, lactic acid normal, Procalcitonin normal, BNP 14. CTA chest normal with no pulmonary embolism. Chest x-ray cardiomegaly with bibasilar lung infiltrates could be pneumonitis. Ultrasound of both lower extremities, no DVT. ASSESSMENT: 1. Acute bronchitis with COPD exacerbation with bilateral lung infiltrate could be aspiration pneumonitis 2. Cor Pulmonale with bilateral leg edema 3. Cardiomegaly 4. History of hypertension 5. Hypothyroidism PLAN: 1. Start Rocephin 1mg Q 24 hour 2. Solu-Medrol 80mg Q12 hour 3. Telemetry 4. PVT 5. IV Lasix daily 6. Elevate the legs 7. Cute down on salt intake 8. Advised to lose weight 9. The patient's main problem with non-compliance and he is not taking his medications regularly. 10.He was explained about all the findings. The patient's sister and friends are present in the room. 11.T4 TSH order 12.Daily weights 13.CT scan of the abdomen and pelvis with contrast order because of the bloating of the abdomen rule out ascites or any other problems. CONDITION: Stable. TIME SPENT: More than 70 minutes. MTDD
[2016-08-07] MEDS: COREG PO SCH (16:34)
[2016-08-07] MEDS: PRAVACHOL PO SCH (21:26)
[2016-08-08] MEDS: PROAIR HFA IH SCH ×4 (03:38→23:00)
[2016-08-08] MEDS: DUONEB NEB SCH ×4 (05:10→23:09)
[2016-08-08] MEDS: LASIX IVP SCH (05:30)
[2016-08-08] MEDS: SYNTHROID PO SCH (05:30)
[2016-08-08 05:58] LABS: BASOPHILS % (AUTO) 0.1 % (0.0-3.0); HEMATOCRIT 42.9 % (42.0-52.0); HEMOGLOBIN 14.6 g/dl (14.0-18.0); IMMATURE GRANULOCYTE % (AUTO) 0.5 % (0.0-5.0); LYMPHOCYTES # (AUTO) 1.6 K/uL (0.60-3.4); LYMPHOCYTES % (AUTO) 9.5 (10.0-50.0); MEAN CORPUSCULAR HEMOGLOBIN 31.7 pg (27.0-31.0); MEAN CORPUSCULAR VOLUME 93.3 fl (80.0-94.0); MONOCYTES # (AUTO) 0.5 K/uL (0.4-2.0); NEUTROPHILS % (AUTO) 86.9; PLATELET COUNT 243 10^3/uL (140-440); WHITE BLOOD COUNT 17.26 K/ul (4.2-10.2)
[2016-08-08 06:15] LABS: ALBUMIN 3.6 g/dL (3.4-5.0); ALBUMIN/GLOBULIN RATIO 1.09; ANION GAP 16.4; BILIRUBIN,TOTAL 0.66 mg/dL (0.00-1.20); BUN/CREATININE RATIO 27.43; CREATININE 1.13 mg/dL (0.60-1.10); POTASSIUM 3.4 mmol/L (3.5-5.1); TOTAL PROTEIN 6.9 g/dL (5.8-8.1)
[2016-08-08] MEDS ORDERED: ZAROXOLYN PO STA (08:27)
[2016-08-08] MEDS: FLOMAX PO SCH (10:00)
[2016-08-08] MEDS: BRINZOLAMIDE OP SCH ×2 (10:00→23:02)
[2016-08-08] MEDS: ZESTRIL PO SCH ×2 (10:01→23:01)
[2016-08-08] MEDS: K-DUR PO SCH ×3 (10:02→22:59)
[2016-08-08] MEDS: PREDNISONE PO SCH (10:02)
[2016-08-08] MEDS: LOVENOX SUBCUT SCH (10:03)
[2016-08-08] MEDS: KEFLEX PO SCH ×3 (10:04→22:59)
[2016-08-08] MEDS: COREG PO SCH ×2 (10:04→17:43)
[2016-08-08] MEDS: DICLOFENAC SODIUM OP SCH ×3 (10:04→22:59)
[2016-08-08] MEDS: PREDNISOLONE OPTH OP SCH ×63 (10:05→23:00)
[2016-08-08] MEDS: LUMIGAN OP SCH (10:06)
--- NOTE | 2016-08-08 11:45 | PN ---
DATE OF SERVICE: 08/08/16 SUBJECTIVE: 81-year-old white male hospitalized with COPD and +3 to +4 pitting edema of the leg. The patient's COPD and bronchitis has improved and is being treated with antibiotics and steroids. His wheezing has practically subsided and is feeling a lot better. The edema is still there +1 to +2 resolving slowly. The patient' s WBC count is elevated because of steroids. REVIEW OF SYSTEMS: CONSTITUTIONAL: No night sweats. No fatigue, malaise, lethargy. No fever or chills. HEENT: Eyes: No visual changes. No eye pain. No eye discharge. ENT: No runny nose. No epistaxis. No sinus pain. No sore throat. No odynophagia. No congestion. RESPIRATORY: No cough, no congestion. No hemoptysis. CARDIOVASCULAR: No angina symptoms. No CHF symptoms. No atypical chest pain for CAD. No palpitations. No shortness of breath. No PND, no orthopnea. Bronchitis symptoms have improved. GASTROINTESTINAL: No abdominal pain. No nausea or vomiting. No diarrhea or constipation. No hematemesis. No hematochezia. GENITOURINARY: No urgency. No frequency. No dysuria. No hematuria. No obstructive symptoms. No discharge. No pain. No significant abnormal bleeding. MUSCULOSKELETAL: No musculoskeletal pain; no joint swelling. NEUROLOGICAL: No headache. No neck pain. No syncope. No seizures. No dizziness. PSYCHIATRIC: Not anxious. No depression. No suicidal thoughts. No homicidal thoughts. SKIN: No rash. No lesions. No wounds. ENDOCRINE: No unexplained weight loss. No weight gain. HEMATOLOGIC/LYMPHATIC: No anemia. No purpura. No petechiae. No prolonged or excessive bleeding. No palpable lymph nodes. PHYSICAL EXAMINATION: GENERAL: The patient is oriented to time, place and person. VITAL SIGNS: Temperature 97, pulse 73, respiratory rate 20, BP 100/72, pulse ox 97%. HEENT: Head normocephalic, atraumatic. Eyes: Extraocular muscles are intact. Pupils are equal, round and reactive to light and accommodation. Ears: No lesions. Nose appeared normal. Throat: No exudate or erythema. NECK: Supple. No JVD, no carotid bruit. No lymphadenopathy or thyromegaly. LUNGS: Decreased breath sounds but clear. Increased AP diameter of the chest. HEART: S1, S2, no S3. No murmurs. No cyanosis or clubbing. No ascites. Pulses: Dorsalis pedis and posterior tibial pulses +1 to +2 both sides. ABDOMEN: Soft. Nontender. Bowel sounds active. No CVA tenderness. No mass felt. EXTREMITIES: +1 to +2 pitting edema. Full range of motion of all extremities, equal. NEUROLOGIC: No focal deficit. Cranial nerves II through XII are grossly intact. No headache, no double vision or headache. SKIN: Not dry. Intact. Turgor - normal. LYMPHATIC: No palpable lymph nodes/no lymphedema. MUSCULOSKELETAL: Normal joints with no swelling. Muscle tone is normal. LABS: Hemoglobin 14, hematocrit 42, WBC 17,000, normal differential. Creatinine 1.1, BUN 31, potassium 3.4. ASSESSMENT: 1. COR PULMONALE TYPE OF CLINICAL PICTURE WITH SHORTNESS OF BREATH AND COUGH 2. SEVERE CHRONIC LUNG DISEASE WITH BILATERAL LEG EDEMA. IT SEEMS TO BE RESPONDING TO IV LASIX. PLAN 1. Will add Zaroxolyn 2.5 mg just for today. 2. Elevate the legs. 3. Continue antibiotics and steroids. 4. Will discontinue IV steroids and put on p.o. steroids. EDUCATION CARRIED OUT: The labs and everything explained with the diagnosis. CONDITION: Stable. The patient lives with a friend, is noncompliant and this is his main problem not taking his medication on a regular basis. CONDITION: STABLE TIME SPENT: More than 30 minutes. Plan and coordination of the patient's care discussed in the presence of nurse. KENTRELL
[2016-08-08] MEDS: PRAVACHOL PO SCH (23:00)
[2016-08-09] MEDS: PROAIR HFA IH SCH ×3 (02:29→14:30)
[2016-08-09] MEDS: KEFLEX PO SCH ×3 (04:43→21:01)
[2016-08-09] MEDS: DUONEB NEB SCH ×4 (05:17→23:37)
[2016-08-09 05:37] LABS: BASOPHILS % (AUTO) 0.1 % (0.0-3.0); EOSINOPHILS % (AUTO) 0.1 % (0.0-7.0); HEMATOCRIT 45.7 % (42.0-52.0); HEMOGLOBIN 14.6 g/dl (14.0-18.0); IMMATURE GRANULOCYTE % (AUTO) 0.3 % (0.0-5.0); LYMPHOCYTES # (AUTO) 3.3 K/uL (0.60-3.4); LYMPHOCYTES % (AUTO) 21.5 (10.0-50.0); MEAN CORPUSCULAR HEMOGLOBIN 31.5 pg (27.0-31.0); MEAN CORPUSCULAR HGB CONC 31.9 (31.8-35.4); MEAN CORPUSCULAR VOLUME 98.5 fl (80.0-94.0); MONOCYTES # (AUTO) 1.3 K/uL (0.4-2.0); MONOCYTES % (AUTO) 8.4 (0-10); NEUTROPHILS # (AUTO) 10.6 K/ul (2.0-6.9); NEUTROPHILS % (AUTO) 69.6; PLATELET COUNT 225 10^3/uL (140-440); RED BLOOD COUNT 4.64 10^6/ul (4.70-6.10); WHITE BLOOD COUNT 15.28 K/ul (4.2-10.2)
[2016-08-09 05:59] LABS: ALBUMIN 3.4 g/dL (3.4-5.0); ALBUMIN/GLOBULIN RATIO 1.03; BILIRUBIN,TOTAL 0.79 mg/dL (0.00-1.20); BUN/CREATININE RATIO 26.08; CALCIUM 9.1 mg/dL (8.2-10.2); CREATININE 1.15 mg/dL (0.60-1.10); TOTAL PROTEIN 6.7 g/dL (5.8-8.1)
[2016-08-09] MEDS: LASIX IVP SCH (06:08)
[2016-08-09] MEDS: SYNTHROID PO SCH (06:08)
[2016-08-09] MEDS: PREDNISOLONE OPTH OP SCH ×63 (08:07→21:00)
[2016-08-09] MEDS: BRINZOLAMIDE OP SCH ×2 (08:07→20:59)
[2016-08-09] MEDS: DICLOFENAC SODIUM OP SCH ×3 (08:08→21:01)
[2016-08-09] MEDS: PREDNISONE PO SCH (08:09)
[2016-08-09] MEDS: K-DUR PO SCH ×3 (08:09→21:01)
[2016-08-09] MEDS: FLOMAX PO SCH (08:09)
[2016-08-09] MEDS: COREG PO SCH ×2 (08:09→17:31)
[2016-08-09] MEDS: LOVENOX SUBCUT SCH (08:10)
[2016-08-09] MEDS: ZESTRIL PO SCH ×2 (08:10→21:02)
[2016-08-09] MEDS: LUMIGAN OP SCH (08:14)
[2016-08-09] MEDS ORDERED: ZAROXOLYN PO STA (08:34)
[2016-08-09] MEDS: PRAVACHOL PO SCH (21:02)
[2016-08-10] MEDS: DUONEB NEB SCH ×3 (05:04→17:02)
[2016-08-10] MEDS: KEFLEX PO SCH ×3 (05:14→21:36)
[2016-08-10 05:15] LABS: BASOPHILS % (AUTO) 0.1 % (0.0-3.0); EOSINOPHILS # (AUTO) 0.1 K/ul (0.0-0.7); HEMATOCRIT 47.1 % (42.0-52.0); HEMOGLOBIN 15.7 g/dl (14.0-18.0); IMMATURE GRANULOCYTE % (AUTO) 0.4 % (0.0-5.0); LYMPHOCYTES # (AUTO) 3.2 K/uL (0.60-3.4); LYMPHOCYTES % (AUTO) 32.6 (10.0-50.0); MEAN CORPUSCULAR HGB CONC 33.3 (31.8-35.4); MEAN CORPUSCULAR VOLUME 95.9 fl (80.0-94.0); MONOCYTES % (AUTO) 10.5 (0-10); NEUTROPHILS # (AUTO) 5.4 K/ul (2.0-6.9); NEUTROPHILS % (AUTO) 55.4; PLATELET COUNT 221 10^3/uL (140-440); RED BLOOD COUNT 4.91 10^6/ul (4.70-6.10); WHITE BLOOD COUNT 9.78 K/ul (4.2-10.2)
[2016-08-10 05:29] LABS: ALBUMIN 3.6 g/dL (3.4-5.0); ALBUMIN/GLOBULIN RATIO 1.03; BILIRUBIN,TOTAL 1.19 mg/dL (0.00-1.20); BUN/CREATININE RATIO 26.78; CALCIUM 9.3 mg/dL (8.2-10.2); CREATININE 1.12 mg/dL (0.60-1.10); TOTAL PROTEIN 7.1 g/dL (5.8-8.1)
[2016-08-10] MEDS: SYNTHROID PO SCH (05:31)
[2016-08-10] MEDS: LASIX IVP SCH (05:31)
[2016-08-10] MEDS: LOVENOX SUBCUT SCH (09:17)
[2016-08-10] MEDS: PREDNISOLONE OPTH OP SCH ×63 (09:18→21:35)
[2016-08-10] MEDS: LUMIGAN OP SCH (09:18)
[2016-08-10] MEDS: DICLOFENAC SODIUM OP SCH ×3 (09:18→21:35)
[2016-08-10] MEDS: BRINZOLAMIDE OP SCH ×2 (09:18→21:34)
[2016-08-10] MEDS: FLOMAX PO SCH (09:19)
[2016-08-10] MEDS: ZESTRIL PO SCH ×2 (09:19→21:37)
[2016-08-10] MEDS: K-DUR PO SCH ×3 (09:19→21:36)
[2016-08-10] MEDS: COREG PO SCH ×2 (09:20→17:43)
[2016-08-10] MEDS: PREDNISONE PO SCH (09:20)
[2016-08-10] MEDS ORDERED: ZAROXOLYN PO STA (12:08)
[2016-08-10] MEDS: PRAVACHOL PO SCH (21:37)
[2016-08-11] MEDS: DUONEB NEB SCH ×3 (00:11→11:04)
[2016-08-11] MEDS: KEFLEX PO SCH ×2 (05:15→12:55)
[2016-08-11] MEDS: LASIX IVP SCH (05:33)
[2016-08-11 06:09] LABS: BASOPHILS % (AUTO) 0.1 % (0.0-3.0); EOSINOPHILS # (AUTO) 0.1 K/ul (0.0-0.7); EOSINOPHILS % (AUTO) 1.4 % (0.0-7.0); HEMATOCRIT 44.5 % (42.0-52.0); HEMOGLOBIN 14.9 g/dl (14.0-18.0); IMMATURE GRANULOCYTE % (AUTO) 0.4 % (0.0-5.0); LYMPHOCYTES # (AUTO) 3.3 K/uL (0.60-3.4); LYMPHOCYTES % (AUTO) 32.9 (10.0-50.0); MEAN CORPUSCULAR HEMOGLOBIN 31.8 pg (27.0-31.0); MEAN CORPUSCULAR HGB CONC 33.5 (31.8-35.4); MEAN CORPUSCULAR VOLUME 95.1 fl (80.0-94.0); MONOCYTES # (AUTO) 0.8 K/uL (0.4-2.0); MONOCYTES % (AUTO) 8.5 (0-10); NEUTROPHILS # (AUTO) 5.6 K/ul (2.0-6.9); NEUTROPHILS % (AUTO) 56.7; PLATELET COUNT 218 10^3/uL (140-440); RED BLOOD COUNT 4.68 10^6/ul (4.70-6.10); WHITE BLOOD COUNT 9.91 K/ul (4.2-10.2)
[2016-08-11] MEDS: SYNTHROID PO SCH (06:11)
[2016-08-11 06:32] LABS: ALBUMIN 3.5 g/dL (3.4-5.0); ALBUMIN/GLOBULIN RATIO 1.09; ANION GAP 15.1; BILIRUBIN,TOTAL 1.1 mg/dL (0.00-1.20); BUN/CREATININE RATIO 33.65; CREATININE 1.04 mg/dL (0.60-1.10); POTASSIUM 4.1 mmol/L (3.5-5.1); TOTAL PROTEIN 6.7 g/dL (5.8-8.1)
[2016-08-11] MEDS: BRINZOLAMIDE OP SCH (08:56)
[2016-08-11] MEDS: DICLOFENAC SODIUM OP SCH (08:58)
[2016-08-11] MEDS: LUMIGAN OP SCH (08:59)
[2016-08-11] MEDS: PREDNISOLONE OPTH OP SCH ×21 (08:59)
[2016-08-11] MEDS: COREG PO SCH (09:00)
[2016-08-11] MEDS: FLOMAX PO SCH (09:00)
[2016-08-11] MEDS: K-DUR PO SCH (09:01)
[2016-08-11] MEDS: LOVENOX SUBCUT SCH (09:01)
[2016-08-11] MEDS: PREDNISONE PO SCH (09:02)
[2016-08-11] MEDS: ZESTRIL PO SCH (09:02)
[2016-08-11 10:10] VITALS: BP 84/55; TEMP 98
--- NOTE | 2016-08-11 11:51 | PCM.PROG ---
Attending Provider: ATTENDING PROVIDER: Dr. MACKENZIE FUENTES DATE OF SERVICE: 08/11/16 SUBJECTIVE: This 81 year old WHITE/ M was hospitalized 08/06/16 for leg edema, COPD exacerbation. The patient is alert and oriented times three. Leg edema has improved. He has lost 6 lbs since admission. He is up and about and is wearing oxygen at 2L 98% saturation. Anticipate the patient will go home today. The patient was seen and examined with the Nurse Practitioner, Lizette. The patient is up and about with help. REVIEW OF SYSTEMS: CONSTITUTIONAL: No night sweats. No fatigue, malaise, lethargy. No fever or chills. HEENT: Eyes: No visual changes. No eye pain. No eye discharge. ENT: No runny nose. No epistaxis. No sinus pain. No odynophagia. No congestion. RESPIRATORY: Cough is improving. No hemoptysis. CARDIOVASCULAR: No angina symptoms. No CHF symptoms. No atypical chest pain for CAD. No palpitations. No shortness of breath. GASTROINTESTINAL: Appetite is good. No abdominal pain. No nausea or vomiting. No diarrhea or constipation. No hematemesis. No hematochezia. GENITOURINARY: No urgency. No frequency. No dysuria. No hematuria. No obstructive symptoms. No discharge. No pain. No significant abnormal bleeding. MUSCULOSKELETAL: No musculoskeletal pain; no joint swelling. NEUROLOGICAL: Awake, alert, oriented to time, place and person. No headache. No neck pain. No syncope. No seizures. No dizziness. PSYCHIATRIC: Not anxious. No depression. No suicidal thoughts. No homicidal thoughts. SKIN: No rash. No lesions. No wounds. ENDOCRINE: No unexplained weight loss. No weight gain. HEMATOLOGIC/LYMPHATIC: No anemia. No purpura. No petechiae. No prolonged or excessive bleeding. No palpable lymph nodes. PHYSICAL EXAMINATION: GENERAL: The patient is awake, alert and oriented, lying in bed in no distress. VITAL SIGNS: Temperature 96.2 F, Pulse 70, Respiratory Rate 16, BP 95/62, Pulse Ox 98% Blood pressure borderline systolic which fluctuates from 90 to 120. The patient is on unloading agent. HEENT: Head normocephalic, atraumatic. Eyes: Extraocular muscles are intact. Pupils are equal, round and reactive to light and accommodation. Ears: No lesions. Nose appeared normal. Throat: No exudate or erythema. NECK: Supple. No JVD, no carotid bruit. No lymphadenopathy or thyromegaly. LUNGS: Clear to auscultation bilaterally decreased. Percussion note normal. Chest symmetrical. HEART: S1, S2, no S3. No murmurs. No cyanosis or clubbing. No ascites. Pulses: Dorsalis pedis and posterior tibial pulses +1 to +2 both sides. ABDOMEN: Soft. Non-tender. Bowel sounds active. No CVA tenderness. No mass felt. EXTREMITIES: +1 edema. Full range of motion of all extremities, equal. NEUROLOGIC: No focal deficit. Cranial nerves II through XII are grossly intact. No headache, no double vision or headache. SKIN: Not dry. Intact. Turgor-normal. LYMPHATIC: No palpable lymph nodes/no lymphedema. MUSCULOSKELETAL: Normal joints with no swelling. Muscle tone is normal. LAB REVIEW: 08/11/16 06:06 08/11/16 06:06 08/11/16 06:06: WBC 9.91, RBC 4.68 L, Hgb 14.9, Hct 44.5, MCV 95.1 H, MCH 31.8 H , MCHC 33.5, RDW Coeff of Leonardo 13.2, Plt Count 218, Immature Gran % (Auto) 0.4, Neut % (Auto) 56.7, Lymph % (Auto) 32.9, [place] % (Auto) 8.5, Eos % (Auto) 1.4, Baso % (Auto) 0.1, Immature Gran # (Auto) 0.0, Neut # 5.6, Lymph # 3.3, [place] # 0.8, Eos # 0.1, Baso # 0.0, Sodium 136, Potassium 4.1, Chloride 93 L, Carbon Dioxide 32 H, Anion Gap 15.1, BUN 35 H, Creatinine 1.04, Estimated GFR (MDRD) 69.00, BUN/Creatinine Ratio 33.65, Glucose 125 H, Calcium 9.0, Total Bilirubin 1.10, AST 21, ALT 29, Alkaline Phosphatase 52 L, Total Protein 6.7, Albumin 3.5 , Globulin 3.2, Albumin/Globulin Ratio 1.09 ASSESSMENT: 1. COPD exacerbation 2. Leg edema PLAN: 1. The patient will undergo 3-step test to see if he needs oxygen at home. 2. Keflex t.i.d. 500 mg 3. Prednisone 10 mg times 5 days 4. Anticipate discharge home 5. Advised to keep legs elevated. 6. Will follow with Dr. Fuentes in one week 7. Advised to cut down on salt. 8. The patient definitely has cor pulmonale with leg edema. He was explained about this finding. 9. Advised to cut down on fluid intake. 10. The patient does not have any bronchitis type symptoms. Plan and coordination of the patient's care discussed in the presence of Structural Steel Fitter and nurse. CONDITION: Stable SCRIBED BY: JOCELINE VINSON Special Inspector scribed while in presence of service performed by Dr. MACKENZIE FUENTES/LIZETTE ACUNA APRN on 08/11/16 ([id number])
--- NOTE | 2016-08-11 13:29 | CM.DICTOOL ---
ADMISSION: 08/06/16 19:00 DISCHARGE: August 11, 2016 DATE OF SERVICE: 08/11/16 FINAL DIAGNOSIS COPD exacerbation Cor Pulmonale with Bilateral Leg Edema Cardiomegaly Hypertension Dyslipidemia Hypothyroid BPH Degenerative Disc Spine LAST VITALS Temp Pulse Resp BP Pulse Ox 98 F 84 18 84/55 L 90 L 08/11/16 10:00 08/11/16 10:00 08/11/16 10:00 08/11/16 10:00 08/11/16 10:00 ACTIVE HOME MEDICATIONS Albuterol Sulfate (ProAir HFA) 2 puff IH every 6 hours Last Admin: Bimatoprost (Lumigan) 1 drop OP DAILY [facility] Last Admin: 08/11/16 08:59 Dose: 1 drop Carvedilol (Coreg) 3.125 mg PO BIDWM [facility] Last Admin: 08/11/16 09:00 Dose: 3.125 mg Furosemide (Lasix) 40 mg PO QDAC [facility] Last Admin: 08/11/16 05:33 Dose: 40 mg Levothyroxine Sodium (Synthroid) 100 mcg PO QDAC [facility] Last Admin: 08/11/16 06:11 Dose: 100 mcg Lisinopril (Zestril) 2.5 mg PO BID [facility] Last Admin: 08/11/16 09:02 Dose: 2.5 mg Non-Formulary Medication (Brinzolamide [Azopt]) 1 drop OP BID [facility] Last Admin: 08/11/16 08:56 Dose: 1 drop Non-Formulary Medication (Diclofenac Sodium [Diclofenac Sodium]) 1 drop OP TID [facility] Last Admin: 08/11/16 08:58 Dose: 1 drop Non-Formulary Medication (Prednisolone Opth Susp [Pred Forte 1% Opth Unique]) 1 drop OP TID [facility] Last Admin: 08/11/16 08:59 Dose: 1 drop Potassium Chloride (K-Dur) 20 meq PO TID [facility] Last Admin: 08/11/16 09:01 Dose: 20 meq Pravastatin Sodium (Pravachol) 40 mg PO BEDTIME [facility] Last Admin: 08/10/16 21:37 Dose: 40 mg Tamusulosin HCL (Flomax) 0.4 mg PO daily Last Admin: 08/11/16 09:00 Dose: 0.4 mg ALLERGIES No Known Allergies Allergy (Verified 08/06/16 10:17) NEW PRESCRIPTIONS: Keflex 500 mg TID for 5 days Prednisone 10 mg daily for 5 days Potassium Chloride 10 meq daily SMOKING: Not Applicable DISEASE SPECIFIC EDUCATION: Elevating legs Low Salt diet Medications Appointment Short term use of Steroids LAB REVIEW: 08/11/16 06:06 08/11/16 06:06 08/11/16 06:06: WBC 9.91, RBC 4.68 L, Hgb 14.9, Hct 44.5, MCV 95.1 H, MCH 31.8 H , MCHC 33.5, RDW Coeff of Leonardo 13.2, Plt Count 218, Immature Gran % (Auto) 0.4, Neut % (Auto) 56.7, Lymph % (Auto) 32.9, [place] % (Auto) 8.5, Eos % (Auto) 1.4, Baso % (Auto) 0.1, Immature Gran # (Auto) 0.0, Neut # 5.6, Lymph # 3.3, [place] # 0.8, Eos # 0.1, Baso # 0.0, Sodium 136, Potassium 4.1, Chloride 93 L, Carbon Dioxide 32 H, Anion Gap 15.1, BUN 35 H, Creatinine 1.04, Estimated GFR (MDRD) 69.00, BUN/Creatinine Ratio 33.65, Glucose 125 H, Calcium 9.0, Total Bilirubin 1.10, AST 21, ALT 29, Alkaline Phosphatase 52 L, Total Protein 6.7, Albumin 3.5 , Globulin 3.2, Albumin/Globulin Ratio 1.09 PLAN: Discharge home Diet: Heart Healthy Activity: Gradually resume as tolerated, use walker or cane for added stability when walking Elevate legs when in bed and when sitting in the chair No changes in home medications, continue medications as listed on nursing discharge information sheet. An appointment is scheduled with Dr. Ramirez on August 18 at 11:15 Mr. Castillo is alert and oriented x 3. He is ambulatory with use of a walker and independent with activities of daily living. A weight loss of 6# is noted from his admission. The legs are less swollen bilaterally. His skin is intact and free of redness or irritation. Meal intakes are good at 100%. The patient was evaluated for home oxygen with saturation of 93% on room air and 97% with exercise. Randolph Ramirez MD
--- NOTE | 2016-08-12 14:05 | DS ---
DATE OF SERVICE: 08/11/16 FINAL DIAGNOSES: 1. COPD EXACERBATION 2. COR PULMONALE WITH BILATERAL LEG EDEMA 3. CARDIOMEGALY 4. HYPERTENSION 5. DYSLIPIDEMIA 6. HYPOTHYROIDISM 7. BPH 8. DEGENERATIVE DISK DISEASE V/S AT DISCHARGE: Temperature 98, pulse 84, respirations 18, BP 84/55, pulse ox 93%. ALLERGIES: NKDA DISCHARGE INSTRUCTIONS: Followup appointment with Dr. Ramirez on August 18 at 11:[address] Ramirez. MEDICATIONS AT DISCHARGE: 1. ProAir two puffs q.6hr p.r.n. 2. Lumigan one drop to affected eye daily 3. Coreg 3.125 mg p.o. b.i.d. 4. Lasix 40 mg p.o. daily 5. Synthroid 100 mcg p.o. daily 6. Zestril 2.5 mg p.o. b.i.d. 7. Azopt eyedrops one drop b.i.d. to affected eye 8. Diclofenac eyedrops one drop t.i.d. to affected eye 9. Potassium Chloride 20 mEq p.o. t.i.d. 10. Pravachol 40 mg p.o. at bedtime 11. Flomax 0.4 mg p.o. daily NEW PRESCRIPTIONS: 1. Keflex 500 mg p.o. t.i.d. times five days 2. Prednisone 10 mg p.o. daily times five days 3. Potassium Chloride 10 mEq daily DIET INSTRUCTIONS: Heart Healthy ACTIVITY: Resume as tolerated. Use walker or cane if needed to aide with ambulation. SMOKING: N/A DISEASE SPECIFIC EDUCATION: The patient was instructed to elevate legs. He was instructed to put something under the foot end of his mattress to sleep with his legs elevated. Low salt diet. Medications were reviewed and discussed. The patient is to followup in the office in one week. LABS AT TIME OF DISCHARGE: Hemoglobin 14.9, hematocrit 44.5, white count 9.9, platelets 218, glucose 125, BUN 35, creatinine 1.04, sodium 136, potassium 4.1. HOSPITAL COURSE: The patient was brought to [facility] Emergency Room complaining of shortness of air. He arrived with his partner, Koki. He had stated that the symptoms had been present for three days and were worsening. He had a nonproductive cough. No fever. His legs had also been swelling. On exam, he was found to have decreased breath sounds with bilateral wheeze and +2 pitting in the lower extremities. White count was 8.4, hemoglobin 15.6, hematocrit 47.2, platelets 225. His sodium was 140, potassium 4.1, BUN 20, creatinine 1.04 on admission. His blood gases, 02 saturation 94%, pH 7.45, pc02 47.7, p02 70, HCO 333.4, total CO2 35, base excess 9. The patient was subsequently admitted for COPD exacerbation and shortness of breath and admitted as an inpatient. His chest x-ray showed after admission cardiomegaly and bibasilar lung infiltrates. A venous scan was completed of his lower extremities due to swelling and both were negative for DVTs. CT of the chest was also performed which was normal. He was placed on routine telemetry orders. The patient was placed on IV Rocephin 1 gm q.24hr and given Zaroxolyn. Over the course of his hospital stay the patient lost 6 lbs due to fluid loss. He was given IV Lasix as well as IV Solu-Medrol. His wheezing significantly improved along with his ease of breathing. At the time of discharge, he was up and about walking in the [place]. He passed a 3-step oxygen test. He was eating 100% of his meals. He had no fever. He was tolerating activity without any difficulty. On the day of discharge, he had trace pedal edema to his lower extremities. Lungs were clear and equal bilaterally with decreased breath sounds. He had had good urine output. He was stable and had significantly improved. He was no longer coughing, stated that he was ready to go home in stable condition. The patient will be discharged home on Keflex 500 mg p.o. t.i.d times five days along with Prednisone 10 mg p.o. b.i.d. times five days. He will go home with his regular Lasix daily and no oxygen needed. He is to followup in the office in one week. TIME SPENT: More than 60 minutes. KENTRELL
--- NOTE | 2016-08-12 15:34 | PN ---
DATE OF SERVICE: 08/09/16 SUBJECTIVE: The patient is an 81 year old white male hospitalized with COPD, acute bronchitis and edema on the lower extremity +3 pitting. The patient had a picture of probably Cor pulmonale. The patient is non-complaint and lives the friends and she also has multiple medical problems. REVIEW OF SYSTEMS: CONSTITUTIONAL: No night sweats. No fatigue, malaise, lethargy. No fever or chills. He is up and about with help. HEENT: Eyes: No visual changes. No eye pain. No eye discharge. ENT: No runny nose. No epistaxis. No sinus pain. No sore throat. No odynophagia. No congestion. RESPIRATORY: Much less cough, no congestion. No hemoptysis. CARDIOVASCULAR: No angina symptoms. No CHF symptoms. No atypical chest pain for CAD. No palpitations. No shortness of breath. GASTROINTESTINAL: No abdominal pain. No nausea or vomiting. No diarrhea or constipation. No hematemesis. No hematochezia. Appetite is better, feeling better. GENITOURINARY: No urgency. No frequency. No dysuria. No hematuria. No obstructive symptoms. No discharge. No pain. No significant abnormal bleeding. MUSCULOSKELETAL: No musculoskeletal pain; no joint swelling. NEUROLOGICAL: No headache. No neck pain. No syncope. No seizures. No dizziness. PSYCHIATRIC: Not anxious. No depression. No suicidal thoughts. No homicidal thoughts. SKIN: No rash. No lesions. No wounds. ENDOCRINE: No unexplained weight loss. No weight gain. Edema has decreased probably to +1 to +2 pitting edema. HEMATOLOGIC/LYMPHATIC: No anemia. No purpura. No petechiae. No prolonged or excessive bleeding. No palpable lymph nodes. PHYSICAL EXAMINATION: GENERAL: The patient is oriented to time, place and person. VITAL SIGNS: Temperature 96.5, pulse 65, respiratory rate 20, blood pressure 100/68 and pulse 97%. HEENT: Head normocephalic, atraumatic. Eyes: Extraocular muscles are intact. Pupils are equal, round and reactive to light and accommodation. Ears: No lesions. Nose appeared normal. Throat: No exudate or erythema. NECK: Supple. No JVD, no carotid bruit. No lymphadenopathy or thyromegaly. LUNGS:Decreased breath sounds but clear to auscultation. Percussion note normal. Chest symmetrical. HEART: S1, S2, no S3. No murmurs. No cyanosis or clubbing. No ascites. Pulses: Dorsalis pedis and posterior tibial pulses +1 to +2 both sides. ABDOMEN: Soft. Nontender. Bowel sounds active. No CVA tenderness. No mass felt. EXTREMITIES: No edema. Full range of motion of all extremities, equal. NEUROLOGIC: No focal deficit. Cranial nerves II through XII are grossly intact. No headache, no double vision or headache. SKIN: Not dry. Intact. Turgor - normal. LYMPHATIC: No palpable lymph nodes/no lymphedema. MUSCULOSKELETAL: Normal joints with no swelling. Muscle tone is normal. LABS: Hgb 14, hct 45, WBC 15,000 normal differential, creatinine 1.1, BUN 30, potassium 4, glucose 132, T4 TSH normal, BNP normal. ASSESSMENT: 1. Leg edema seems to be subsiding, lost 6 pounds yesterday. The patient was given Xaroxolyn and Lasix 2. Acute bronchitis exacerbation of COPD seems to be under control with steroids and antibiotic 3. Hypertension controlled 4. Dyslipidemia Controlled 5. BPH under control PLAN: 1. Education about Cor Pulmonale, Chronic lung disease and how to take care of medical conditions 2. Advised to take his medications regularly 3. Advised to keep his legs up at night higher then the hip, he could keep his head up CONDITION: Stable TIME SPENT: More than 30 minutes. Plan and coordination of the patient's care discussed in the presence of nurse. KENTRELL
--- NOTE | 2016-08-13 07:26 | PN ---
DATE OF SERVICE: 08/10/16 SUBJECTIVE: The patient is an 81 year old white male hospitalized with COPD acute exacerbation and leg edema. The patient had bought of acute Cor Pulmonale. The patient has practically lost 6 to 8 pounds. His pedal edema has decreased in size and there is no cough or congestion. REVIEW OF SYSTEMS: CONSTITUTIONAL: No night sweats. No fatigue, malaise, lethargy. No fever or chills. HEENT: Eyes: No visual changes. No eye pain. No eye discharge. ENT: No runny nose. No epistaxis. No sinus pain. No sore throat. No odynophagia. No congestion. RESPIRATORY: No cough, no congestion. No hemoptysis. CARDIOVASCULAR: No angina symptoms. No CHF symptoms. No atypical chest pain for CAD. No palpitations. No shortness of breath. GASTROINTESTINAL: No abdominal pain. No nausea or vomiting. No diarrhea or constipation. No hematemesis. No hematochezia. GENITOURINARY: No urgency. No frequency. No dysuria. No hematuria. No obstructive symptoms. No discharge. No pain. No significant abnormal bleeding. MUSCULOSKELETAL: No musculoskeletal pain; no joint swelling. NEUROLOGICAL: No headache. No neck pain. No syncope. No seizures. No dizziness. PSYCHIATRIC: Not anxious. No depression. No suicidal thoughts. No homicidal thoughts. SKIN: No rash. No lesions. No wounds. ENDOCRINE: No unexplained weight loss. No weight gain. HEMATOLOGIC/LYMPHATIC: No anemia. No purpura. No petechiae. No prolonged or excessive bleeding. No palpable lymph nodes. PHYSICAL EXAMINATION: GENERAL: The patient is oriented to time, place and person. VITAL SIGNS: Temperature 96.5, pulse 75, respiratory rate 18, blood pressure 108/73 and pulse ox 95%. HEENT: Head normocephalic, atraumatic. Eyes: Extraocular muscles are intact. Pupils are equal, round and reactive to light and accommodation. Ears: No lesions. Nose appeared normal. Throat: No exudate or erythema. NECK: Supple. No JVD, no carotid bruit. No lymphadenopathy or thyromegaly. LUNGS: Decreased breath sounds but clear to auscultation. Percussion note normal. Chest symmetrical. HEART: S1, S2, no S3. No murmurs. No cyanosis or clubbing. No ascites. Pulses: Dorsalis pedis and posterior tibial pulses +1 to +2 both sides. ABDOMEN: Soft. Nontender. Bowel sounds active. No CVA tenderness. No mass felt. EXTREMITIES: +1 to +2 pitting edema. Full range of motion of all extremities, equal. NEUROLOGIC: No focal deficit. Cranial nerves II through XII are grossly intact. No headache, no double vision or headache. SKIN: Not dry. Intact. Turgor - normal. LYMPHATIC: No palpable lymph nodes/no lymphedema. MUSCULOSKELETAL: Normal joints with no swelling. Muscle tone is normal. LABS: Hgb 15.7, hct 47, WBC 9,700 normal differential, creatinine 1.1, BUN 30, potassium 4 ASSESSMENT: 1. COPD acute exacerbation under control 2. Leg edema seems to be subsided 3. Hypothyroidism 4. Dyslipidemia 5. Hypertension controlled PLAN: 1. Continue Lasix IV 2. The patient was given Zaroxolyn today one extra dose 3. Elevate the legs 4. Acute Cor Pulmonale discussed with the patient and talked about his COPD 5. Advised to elevate the legs at night 6. Advised to control salt intake CONDITION: Stable TIME SPENT: More than 30 minutes. Plan and coordination of the patient's care discussed in the presence of nurse. KENTRELL
--- NOTE | 2016-08-13 08:32 | PN ---
DATE OF SERVICE: 08/11/16 SUBJECTIVE: The patient is an 81 year old white male is going to be discharged. The patient was seen and examined with the Nurse Practitioner, Lizette. The patient is up and about with help. REVIEW OF SYSTEMS: CONSTITUTIONAL: No night sweats. No fatigue, malaise, lethargy. No fever or chills. HEENT: Eyes: No visual changes. No eye pain. No eye discharge. ENT: No runny nose. No epistaxis. No sinus pain. No sore throat. No odynophagia. No congestion. RESPIRATORY: No cough, no congestion. No hemoptysis. CARDIOVASCULAR: No angina symptoms. No CHF symptoms. No atypical chest pain for CAD. No palpitations. No shortness of breath. GASTROINTESTINAL: No abdominal pain. No nausea or vomiting. No diarrhea or constipation. No hematemesis. No hematochezia. GENITOURINARY: No urgency. No frequency. No dysuria. No hematuria. No obstructive symptoms. No discharge. No pain. No significant abnormal bleeding. MUSCULOSKELETAL: No musculoskeletal pain; no joint swelling. NEUROLOGICAL: No headache. No neck pain. No syncope. No seizures. No dizziness. PSYCHIATRIC: Not anxious. No depression. No suicidal thoughts. No homicidal thoughts. SKIN: No rash. No lesions. No wounds. ENDOCRINE: No unexplained weight loss. No weight gain. HEMATOLOGIC/LYMPHATIC: No anemia. No purpura. No petechiae. No prolonged or excessive bleeding. No palpable lymph nodes. PHYSICAL EXAMINATION: GENERAL: The patient is VITAL SIGNS: Blood pressure borderline systolic which fluctuates from 90 to 120. The patient is on unloading agent HEENT: Head normocephalic, atraumatic. Eyes: Extraocular muscles are intact. Pupils are equal, round and reactive to light and accommodation. Ears: No lesions. Nose appeared normal. Throat: No exudate or erythema. NECK: Supple. No JVD, no carotid bruit. No lymphadenopathy or thyromegaly. LUNGS: Clear to auscultation. Percussion note normal. Chest symmetrical. HEART: S1, S2, no S3. No murmurs. No cyanosis or clubbing. No ascites. Pulses: Dorsalis pedis and posterior tibial pulses +1 to +2 both sides. ABDOMEN: Soft. Nontender. Bowel sounds active. No CVA tenderness. No mass felt. EXTREMITIES: No edema. Full range of motion of all extremities, equal. NEUROLOGIC: No focal deficit. Cranial nerves II through XII are grossly intact. No headache, no double vision or headache. SKIN: Not dry. Intact. Turgor - normal. LYMPHATIC: No palpable lymph nodes/no lymphedema. MUSCULOSKELETAL: Normal joints with no swelling. Muscle tone is normal. LABS: ASSESSMENT: 1. 2. 3. 4. 5. 6. PLAN: 1. Advised to keep legs elevated 2. Advised to cut down on salt 3. The patient will under go three step test to see if he needs any oxygen at home 4. 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 He was explained about this finding 5. Advised to cut down on fluid intake 6. The patient does not have any bronchitis type of symptoms 7. Will be discharged on Steroids and antibiotics CONDITION: Stable. TIME SPENT: More than 30 minutes. Plan and coordination of the patient's care discussed in the presence of nurse. KENTRELL
== END 2016-08-11 14:39 | disposition home or self-care (01) | DRG 192 ==
LOC: ED 10:11 → MEDSURG B 14:29 → OBSVTOIN 19:00
PROVIDERS: ADMIT Internal Medicine; ATTEND Internal Medicine
DX: J44.1 Chronic obstructive pulmonary disease with (acute) exacerbation (principal); J44.0 Chronic obstructive pulmonary disease with (acute) lower respiratory infection; J20.9 Acute bronchitis, unspecified; I27.81 Cor pulmonale (chronic); R60.0 Localized edema; I51.7 Cardiomegaly; I10 Essential (primary) hypertension; E78.5 Hyperlipidemia, unspecified; E03.9 Hypothyroidism, unspecified; N40.0 Benign prostatic hyperplasia without lower urinary tract symptoms; R06.02 Shortness of breath; R06.2 Wheezing; Z91.14 Patient's other noncompliance with medication regimen; Z87.891 Personal history of nicotine dependence; Z79.899 Other long term (current) drug therapy
CPT/HCPCS: 36415; 80053; 82550; 82803; 83605; 83880; 84145; 84439; 84443; 84484; 85025; 85379; 87040; 87070; 93005; 93010; 94640; 94761; 96374; 99284

== ENCOUNTER 2016-10-07 02:23 | Emergency (ER) ==
[2016-10-07 02:24] VITALS: BMI 35.2
--- NOTE | 2016-10-07 02:30 | ED.PDOC ---
General ED Provider: Dr. AZALEA LONDON Chief Complaint: Shortness of Air Stated Complaint: Started with sore throat 2 days ago, coughing, congested, getting yellow, sputum, tonight Shortness of breath got worse so family brought him for the evaluation. Time Seen by Physician: 02:28 Primary Care Provider: MACKENZIE FUENTES Nursing and Triage Documentation Reviewed and Agree: Yes Respiratory Complaint Exam - Shortness of Air Complaint/Exam Symptoms Are: Still present Timing: Constant Initial Severity: Severe Current Severity: Severe Character: Reports: Dyspnea at rest Aggravating: Reports: Movement Alleviating: Reports: None Associated Signs and Symptoms: Reports: Cough, Wheezing, Edema. Denies: Chest pain with cough, Chest pain, Fever, Chills, Diaphoresis, Nasal congestion, Dizziness, Calf pain, Calf swelling, Rapid breathing, Labored breathing, Decreased intake Related History: Reports: Similar episode History of Healthcare-Acquired Pneumonia: No Pulmonary Embolism Risk Factors: Reports: None Cardiac Risk Factors: Reports: CAD, Elevated lipids, Hypertension, CHF Pseudomonas Risk Factors: Reports: None Home Oxygen Use: Yes Recent Stress Test: No Respiratory Distress: Moderate Stridor Present: No Tracheal Deviation: No Subcutaneous Emphysema: No Accessory Muscle Use: Yes Retractions: Supraclavicular Diminished Breath Sounds: Yes Prolonged Expiratory Phase: Yes Unable to Speak Full Sentences: Yes Fatigue: No Leg Swelling: Yes Differential Diagnoses: CHF, COPD Exacerbation, Pneumonia Quality Indicators for AMI: EKG in 10min. Review of Systems - Review Of Systems Constitutional: Reports: Malaise, Weakness Eyes: Reports: No symptoms Ears, Nose, Mouth, Throat: Reports: No symptoms Respiratory: Reports: Cough, Orthopnea, Short of air Cardiac: Reports: Edema GI: Reports: No symptoms : Reports: No symptoms Musculoskeletal: Reports: No symptoms Skin: Reports: No symptoms Neurological: Reports: No symptoms Endocrine: Reports: No symptoms Hematologic/Lymphatic: Reports: No symptoms All Other Systems: Reviewed and Negative Past Medical History - Past Medical History Previously Healthy: Yes Endocrine: Reports: Hypothyroid, Dyslipidemia Cardiovascular: Reports: None Respiratory: Reports: COPD Hematological: Reports: None Gastrointestinal: Reports: None Genitourinary: Reports: None Neuro/Psych: Reports: None Musculoskeletal: Reports: None Cancer: Reports: None - Surgical History General Surgical History: Reports: Tonsillectomy - Family History Family History: Reports: Unknown - Social History Smoking Status: Former smoker Hx Substance Use: No Alcohol Screening: None - Immunizations Influenza Vaccine within 12 Months: Yes (NOVEMBER) Pneumococcal Vaccine up to Date: Yes (ONE A LONG TIME AGO, ONE ONE OR TWO YEARS AGO) Physical Exam - Physical Exam Appearance: Ill-appearing Eyes: EOMI, Conjunctiva clear ENT: Ears normal, Nose normal, Oropharynx normal Respiratory: Breath sounds diminished, Crackles, Wheezes Cardiovascular: RRR GI/: Soft, Nontender, No masses, Bowel sounds normal, No Organomegaly Musculoskeletal: Edema (3+ve in both extremities) Skin: Warm, Dry, Normal color Neurological: Sensation intact, Motor intact, Reflexes intact, Cranial nerves intact, Alert, Oriented Psychiatric: Affect appropriate, Mood appropriate Interpretation - Radiology Interpretation Radiology Interpretation By: Radiologist Radiology Results: Positive Exam Interpreted: CT Scan Critical Care Note - Critical Care Note Total Time (mins): 30 Course - Course Hematology/Chemistry: 10/07/16 02:40 10/07/16 02:40 Orders, Labs, Meds: Lab Review 10/07/16 10/07/16 02:26 02:40 WBC 8.42 RBC 4.43 L Hgb 14.3 Hct 43.4 MCV 98.0 H MCH 32.3 H MCHC 32.9 RDW Coeff of Leonardo 13.8 Plt Count 192 Immature Gran % (Auto) 0.4 Neut % (Auto) 73.1 Lymph % (Auto) 15.6 Garvin % (Auto) 9.6 Eos % (Auto) 0.8 Baso % (Auto) 0.5 Immature Gran # (Auto) 0.0 Neut # 6.2 Lymph # 1.3 Garvin # 0.8 Eos # 0.1 Baso # 0.0 D-Dimer (Manual) 2075.77 Puncture Site Rb O2 Saturation 93.0 L ABG pH 7.483 H ABG pCO2 38.0 ABG pO2 61.0 L ABG HCO3 28.5 H ABG Total CO2 30 H ABG Base Excess 5 H Alfonzo Test + FiO2 % 21.0 Sodium 142 Potassium 3.9 Chloride 100 Carbon Dioxide 29 Anion Gap 16.9 BUN 16 Creatinine 1.03 Estimated GFR (MDRD) 69.00 BUN/Creatinine Ratio 15.53 Glucose 142 H Lactic Acid 10.0 Calcium 9.2 Total Bilirubin 1.73 H AST 18 ALT 24 Alkaline Phosphatase 55 L Total Creatine Kinase 77 Troponin I 0.0180 B-Natriuretic Peptide 11 Total Protein 6.9 Albumin 3.6 Globulin 3.3 Albumin/Globulin Ratio 1.09 Procalcitonin < 0.05 Orders Category Date Time Status ABG DRAW REQUEST Stat CARDIO 10/07/16 02:26 Completed EKG-(ED ONLY) Stat CARDIO 10/07/16 02:26 Completed NEBULIZER TREATMENT Stat CARDIO 10/07/16 02:27 Completed ED IV/MEDIPORT/POWERPORT .ONCE EMERGENCY 10/07/16 02:26 Active ABG Stat LAB 10/07/16 02:26 Completed B-TYPE NATRIURETIC PEPTIDE Stat LAB 10/07/16 02:40 Completed CBC W/ AUTO DIFF Stat LAB 10/07/16 02:40 Completed COMPREHENSIVE METABOLIC PANEL Stat LAB 10/07/16 02:40 Completed CREATINE KINASE Stat LAB 10/07/16 02:40 Completed D-DIMER Stat LAB 10/07/16 02:40 Completed LACTIC ACID Stat LAB 10/07/16 02:40 Completed PROCALCITONIN Stat LAB 10/07/16 02:40 Completed TROPONIN I Stat LAB 10/07/16 02:40 Completed 0.9 % Sodium Chloride [Saline Flush] MEDS 10/07/16 02:26 Ordered 1 syr IVF PRN PRN Ceftriaxone Sodium [Rocephin] MEDS 10/07/16 02:35 Discontinued 1 gm .ROUTE .STK-MED ONE Ceftriaxone Sodium [Rocephin] 1 gm MEDS 10/07/16 02:26 Discontinued 0.9 % Sodium Chloride [Sodium Chloride] 50 ml IV ONCE Furosemide [Lasix] MEDS 10/07/16 02:26 Discontinued 60 mg IVP ONCE STA Ipratropium/Albuterol Neb [Duoneb] MEDS 10/07/16 02:26 Discontinued 1 vial NEB ONCE STA Methylprednisolone Sod Succ/Pf [Solu-Medrol 125 mg] MEDS 10/07/16 02:26 Discontinued 80 mg IVP ONCE STA Morphine Sulfate [Morphine 2 mg/ml Syringe] MEDS 10/07/16 02:26 Discontinued 2 mg IVP ONCE STA Ondansetron HCl/Pf [Zofran 4 mg/2 ml] MEDS 10/07/16 02:26 Discontinued 4 mg IVP ONCE STA CT CHEST W/O CONTRAST Stat RADS 10/07/16 02:28 Completed Medications Generic Name Dose Route Start Last Admin Trade Name Freq PRN Reason Stop Dose Admin Sodium Chloride 1 syr 10/07/16 02:26 10/07/16 02:42 Saline Flush IVF 1 syr PRN PRN Administration To flush IV Discontinued Medications Generic Name Dose Route Start Last Admin Trade Name Anny PRN Reason Stop Dose Admin Albuterol/Ipratropium 1 vial 10/07/16 02:26 10/07/16 03:12 Duoneb NEB 10/07/16 02:27 1 vial ONCE STA Administration Furosemide 60 mg 10/07/16 02:26 10/07/16 02:42 Lasix IVP 10/07/16 02:27 60 mg ONCE STA Administration Ceftriaxone Sodium 1 gm/ 50 mls @ 75 mls/hr 10/07/16 02:26 10/07/16 02:42 Sodium Chloride IV 10/07/16 03:05 75 mls/hr ONCE STA Administration Methylprednisolone Sodium Succinate 80 mg 10/07/16 02:26 10/07/16 02:39 Solu-Medrol 125 Mg IVP 10/07/16 02:27 80 mg ONCE STA Administration Morphine Sulfate 2 mg 10/07/16 02:26 10/07/16 02:41 Morphine 2 Mg/Ml Syringe IVP 10/07/16 02:27 2 mg ONCE STA Administration Ondansetron HCl 4 mg 10/07/16 02:26 10/07/16 02:41 Zofran 4 Mg/2 Ml IVP 10/07/16 02:27 4 mg ONCE STA Administration Vital Signs: Temp Pulse Resp BP Pulse Ox 10/07/16 02:25 96.3 F L 90 40 H 131/73 93 L Departure - Departure Time of Disposition: 04:27 Disposition: HOME SELF-CARE Discharge Problem: COPD exacerbation Discharge Problem: (Ruled Out): Acute on chronic heart failure Instructions: Heart Failure (ED) Condition: Stable Pt referred to PMD for follow-up: No Additional Instructions: patient was feeling better after the treatment, said he wants to go home and wants to see Dr Fuentes in office 2 days patient with him in the room Prescriptions: Cephalexin [Keflex] 500 mg PO Q12HR #20 capsule Ipratropium/Albuterol Neb [Duoneb] 1 vial NEB RTQ8H #90 vial.neb Prednisone 10 mg PO BIDWM #14 tablet Allergies/Adverse Reactions: Allergies No Known Allergies Allergy (Verified 10/07/16 02:34) Home Medications: Ambulatory Orders Albuterol Sulfate [Proair Hfa] 2 puff IH Q6H #1 inhaler 03/14/16 Bimatoprost Opth [Lumigan] 1 drop OP DAILY 03/14/16 Carvedilol [Coreg] 3.125 mg PO BIDWM 03/14/16 Furosemide [Lasix Tab] 40 mg PO QDAC 03/14/16 Levothyroxine Sodium [Synthroid] 100 mcg PO QDAC 03/14/16 Lisinopril 2.5 mg PO BID 03/14/16 Pravastatin Sodium [Pravachol] 40 mg PO BEDTIME 03/14/16 Tamsulosin HCl [Flomax] 0.4 mg PO DAILY 03/14/16 Brinzolamide [Azopt] 1 drop OP BID 08/06/16 Diclofenac Sodium 1 drop OP TID 08/06/16 Prednisolone Opth Susp [Pred Forte 1% Opth Unique] 1 drop OP TID 08/06/16 Cephalexin [Keflex] 500 mg PO Q8HR #15 capsule 08/11/16 Potassium Chloride [K-Tab ER] 10 meq PO DAILY #30 tablet.er 08/11/16 Prednisone 10 mg PO DAILYWM #5 tablet 08/11/16 Cephalexin [Keflex] 500 mg PO Q12HR #20 capsule 10/07/16 Ipratropium/Albuterol Neb [Duoneb] 1 vial NEB RTQ8H #90 vial.neb 10/07/16 Prednisone 10 mg PO BIDWM #14 tablet 10/07/16 Disposition Discussed With: Patient, Family
[2016-10-07 02:34] VITALS: BP 131/73; TEMP 96.3
[2016-10-07] MEDS: SOLU-MEDROL 125 MG IVP STA (02:39)
[2016-10-07] MEDS: MORPHINE 2 MG/ML SYRINGE IVP STA (02:41)
[2016-10-07] MEDS: ZOFRAN 4 MG/2 ML IVP STA (02:41)
[2016-10-07] MEDS: ROCEPHIN 1 GM in SODIUM CHLORIDE 50 ML IV STA (02:42)
[2016-10-07] MEDS: LASIX IVP STA (02:42)
[2016-10-07] MEDS: ROCEPHIN ONE (02:42)
[2016-10-07 02:52] LABS: BASOPHILS % (AUTO) 0.5 % (0.0-3.0); EOSINOPHILS # (AUTO) 0.1 K/ul (0.0-0.7); EOSINOPHILS % (AUTO) 0.8 % (0.0-7.0); HEMATOCRIT 43.4 % (42.0-52.0); HEMOGLOBIN 14.3 g/dl (14.0-18.0); IMMATURE GRANULOCYTE % (AUTO) 0.4 % (0.0-5.0); LYMPHOCYTES # (AUTO) 1.3 K/uL (0.60-3.4); LYMPHOCYTES % (AUTO) 15.6 (10.0-50.0); MEAN CORPUSCULAR HEMOGLOBIN 32.3 pg (27.0-31.0); MEAN CORPUSCULAR HGB CONC 32.9 (31.8-35.4); MONOCYTES # (AUTO) 0.8 K/uL (0.4-2.0); MONOCYTES % (AUTO) 9.6 (0-10); NEUTROPHILS # (AUTO) 6.2 K/ul (2.0-6.9); NEUTROPHILS % (AUTO) 73.1; PLATELET COUNT 192 10^3/uL (140-440); RED BLOOD COUNT 4.43 10^6/ul (4.70-6.10); WHITE BLOOD COUNT 8.42 K/ul (4.2-10.2)
[2016-10-07] MEDS: DUONEB NEB STA (03:12)
[2016-10-07 03:19] LABS: ALBUMIN 3.6 g/dL (3.4-5.0); ALBUMIN/GLOBULIN RATIO 1.09; ANION GAP 16.9; BILIRUBIN,TOTAL 1.73 mg/dL (0.00-1.20); BUN/CREATININE RATIO 15.53; CALCIUM 9.2 mg/dL (8.2-10.2); CREATININE 1.03 mg/dL (0.60-1.10); POTASSIUM 3.9 mmol/L (3.5-5.1); TOTAL PROTEIN 6.9 g/dL (5.8-8.1); TROPONIN I 0.018 ng/ml (0.0000-0.4000)
[2016-10-07 03:46] LABS: ABG BASE EXCESS 5 (-2.0-2.0); ABG HCO3 28.5 (22.0-26.0); ABG PH 7.483 (7.35-7.45); ABG TCO2 30 (22.0-28.0)
--- NOTE | 2016-10-07 04:09 | CT ---
Exam: CT of the chest without contrast History: Shortness of breath Technique: [address] of the chest without intravascular contrast FINDINGS: The lung windows show no infiltrative opacities, suspicious nodules or masses. No pleural fluid or pneumothorax. Trace emphysematous change is present. Atherosclerotic calcification of th e aorta without aneurysm. No pathologic lymph node enlargement or abundance. No acute findings of the chest wall soft tissues or bony thorax. No acute findings of the upper abdomen. There is a 7 cm liver cyst. Impression: 1. Mild emphysematous change. No acute findings of the chest.
== END 2016-10-07 04:42 | disposition home or self-care (01) ==
LOC: ED 02:23
DX: J44.1 Chronic obstructive pulmonary disease with (acute) exacerbation (principal); I50.9 Heart failure, unspecified; I25.10 Atherosclerotic heart disease of native coronary artery without angina pectoris; E78.5 Hyperlipidemia, unspecified; I10 Essential (primary) hypertension; E03.9 Hypothyroidism, unspecified; Z79.899 Other long term (current) drug therapy
CPT/HCPCS: 36415; 80053; 82550; 82803; 83605; 83880; 84145; 84484; 85025; 85379; 93005; 93010; 94640; 96365; 96375; 99285

== ENCOUNTER 2017-02-02 11:48 | Inpatient (IN) ==
[2017-02-02 11:55] VITALS: BMI 36.1
[2017-02-02] MEDS ORDERED: DUONEB NEB STA (12:06)
[2017-02-02 12:24] LABS: ABG PH 7.451 (7.35-7.45)
[2017-02-02 12:25] LABS: ABG BASE EXCESS 8 (-2.0-2.0); ABG HCO3 32.1 (22.0-26.0); ABG PCO2 46.1 mmHg (35-45); ABG TCO2 33 (22.0-28.0)
[2017-02-02 12:35] LABS: BASOPHILS # (AUTO) 0.1 K/uL (0-0.2); BASOPHILS % (AUTO) 0.5 % (0.0-3.0); EOSINOPHILS # (AUTO) 0.3 K/ul (0.0-0.7); EOSINOPHILS % (AUTO) 2.6 % (0.0-7.0); IMMATURE GRANULOCYTE % (AUTO) 0.2 % (0.0-5.0); LYMPHOCYTES % (AUTO) 17.2 (10.0-50.0); MEAN CORPUSCULAR HEMOGLOBIN 31.5 pg (27.0-31.0); MEAN CORPUSCULAR HGB CONC 32.6 (31.8-35.4); MEAN CORPUSCULAR VOLUME 96.8 fl (80.0-94.0); MONOCYTES # (AUTO) 0.9 K/uL (0.4-2.0); MONOCYTES % (AUTO) 7.8 (0-10); NEUTROPHILS # (AUTO) 8.2 K/ul (2.0-6.9); NEUTROPHILS % (AUTO) 71.7; PLATELET COUNT 213 10^3/uL (140-440); RED BLOOD COUNT 4.44 10^6/ul (4.70-6.10); WHITE BLOOD COUNT 11.38 K/ul (4.2-10.2)
[2017-02-02 13:02] LABS: ALBUMIN 3.2 g/dL (3.4-5.0); ALBUMIN/GLOBULIN RATIO 0.84; ANION GAP 13.6; BILIRUBIN,TOTAL 1.55 mg/dL (0.00-1.20); BUN/CREATININE RATIO 23.58; CALCIUM 8.7 mg/dL (8.2-10.2); CREATININE 1.06 mg/dL (0.60-1.10); POTASSIUM 3.6 mmol/L (3.5-5.1); TROPONIN I 0.017 ng/ml (0.0000-0.4000)
--- NOTE | 2017-02-02 13:10 | CT ---
EXAM: CT chest without contrast HISTORY: Cough COMPARISON: Chest x-ray 08/06/[address] chest 10/07/2016 and 08/06/2016 TECHNIQUE: Serial axial images of the chest were obtained from the lung apices to the upper abdomen without contrast. These were viewed in multiple planes. FINDINGS: The thyroid is normal. The visualized vessels are unremarkable without aneurysm or stenos is. The heart is normal in size without pericardial effusion. There are no pathologically enlarged mediastinal or hilar lymph nodes. There is no pneumothorax or pleural effusion. There is mild emphysematous change. There is mild low er lobe bronchiectasis and scattered airway thickening with central lobular ground-glass. Bilateral lower lobe. Questionable developing ground-glass consolidations are present and new from prior exam. The airways are otherwise patent. The soft tissues in the upper abdomen are unchanged with low attenuation lesion in the liver are stab le since prior exam most consistent with a large cyst. Osseous structures are stable with multilevel degenerative disease. IMPRESSION: 1. Bilateral lower lobe airway thickening with ground-glass and questionable developing ground-glass consolidations in the lung bases suggestive of small airways infection/pneumonia. 2. Stable minimal emphysema. 3. Unchanged right hepatic cyst.
[2017-02-02] MEDS ORDERED: SODIUM CHLORIDE 1,000 ML IV STA (13:25)
[2017-02-02] MEDS ORDERED: ZOSYN 4.5 GM 4.5 GM in SODIUM CHLORIDE 100 ML IV STA (13:40)
--- NOTE | 2017-02-02 13:45 | ED.PDOC ---
General ED Provider: Dr. LAURA AVALOS Chief Complaint: Shortness of Air Stated Complaint: shortness of breath Time Seen by Physician: 12:00 (seen with nursing staff ) Mode of Arrival: Walk-In Information Source: Patient, Other Exam Limitations: No limitations Primary Care Provider: MACKENZIE FUENTES Nursing and Triage Documentation Reviewed and Agree: Yes Respiratory Complaint Exam - Respiratory Complaint/Exam Onset/Duration: decline status in over 3 days time no chest pain Symptoms Are: Still present Timing: Constant Initial Severity: Mild Current Severity: Mild Location: Throat, Chest Character: Reports: Non-productive cough Aggravating: Reports: Recumbent position Alleviating: Reports: Upright position Associated Signs and Symptoms: Reports: Dyspnea, Chills, URI, Nasal congestion. Denies: Rapid breathing, Fever, Chest pain, Pleuritic chest pain, Wheezing, Hemoptysis, Dizziness, Calf pain, Calf swelling, Edema, Hoarseness, Sinus discomfort, Vomiting, Sore throat, Weight loss, Decreased oral intake, Increased thirst, Increased appetite, Increased urination Related History: Reports: Similar episode Cardiac Risk Factors: Reports: Elevated lipids, Diabetes, Hypertension Pseudomonas Risk Factors: Reports: Chronic Lung Disease Tuberculosis Risk Factors: Reports: None Status Asthmaticus Risk Factors: Reports: None Home Oxygen Use: No Recent Stress Test: No Recent Echo/LV Function: No Current Antibiotic Use: No Current Asthma Medication Use: No Respiratory Distress: None Inadequate Respiratory Effort: No Dysphagia Present: No Stridor Present: No JVD Present: No Accessory Muscle Use: No Prolonged Respiration: Expiratory phase Sinus Tenderness: None Grunting Respirations: No Kussmaul Respirations: No Differential Diagnoses: CHF, Pulmonary Edema, COPD Exacerbation, Pneumonia, Pulmonary Embolism, Bronchitis, Bronchospasm, URI, Lower Resp. Infection Quality Indicators For Pneumonia: Blood Cultures-SCU admit, Antibiotics in 6hr- admit, SpO2 assessed, Empiric Antibiotic Rx, Vital signs (hypotensive but no pain or distress ), Mental status assessed (aox3 ) Non-Traumatic Chest Pain Syncope: EKG Performed Review of Systems - Review Of Systems Constitutional: Reports: Malaise, Weakness Eyes: Reports: No symptoms Ears, Nose, Mouth, Throat: Reports: No symptoms Respiratory: Reports: Cough, Short of air Cardiac: Reports: No symptoms GI: Reports: No symptoms : Reports: No symptoms Musculoskeletal: Reports: No symptoms Skin: Reports: No symptoms Neurological: Reports: No symptoms Endocrine: Reports: No symptoms Hematologic/Lymphatic: Reports: No symptoms All Other Systems: Reviewed and Negative Past Medical History - Past Medical History Previously Healthy: Yes Endocrine: Reports: Hypothyroid, Dyslipidemia Cardiovascular: Reports: Hypertension Respiratory: Reports: COPD Hematological: Reports: None Gastrointestinal: Reports: None Genitourinary: Reports: None Neuro/Psych: Reports: None Musculoskeletal: Reports: None Cancer: Reports: None - Surgical History General Surgical History: Reports: Tonsillectomy - Family History Family History: Reports: Unknown - Social History Smoking Status: Former smoker Hx Substance Use: No Alcohol Screening: None - Immunizations Influenza Vaccine within 12 Months: Yes (NOVEMBER) Pneumococcal Vaccine up to Date: Yes (ONE A LONG TIME AGO, ONE ONE OR TWO YEARS AGO) Physical Exam - Physical Exam Appearance: Ill-appearing Ill-appearing: Mild Pain Distress: Mild Eyes: NATHAN, EOMI, Conjunctiva clear ENT: Ears normal, Nose normal, Oropharynx normal Respiratory: Breath sounds clear, Breath sounds diminished, Rhonchi Cardiovascular: RRR, Pulses normal, No rub, No murmur GI/: Soft, Nontender, No masses, Bowel sounds normal, No Organomegaly Musculoskeletal: Normal strength, ROM intact, No edema, No calf tenderness Skin: Warm, Dry, Normal color Neurological: Sensation intact, Motor intact, Reflexes intact, Cranial nerves intact, Alert, Oriented Psychiatric: Affect appropriate, Mood appropriate Interpretation - Radiology Interpretation Radiology Interpretation By: Radiologist Radiology Results: Positive (penumonitis) Physician Notification - Case Discussed Physician Notified: pmd Time of Notification: 13:54 Admit To: Inpatient Critical Care Note - Critical Care Note Total Time (mins): 0 Course - Course Hematology/Chemistry: 02/02/17 12:01 02/02/17 12:15 Orders, Labs, Meds: Lab Review 02/02/17 02/02/17 02/02/17 12:01 12:15 12:15 WBC 11.38 H RBC 4.44 L Hgb 14.0 Hct 43.0 MCV 96.8 H MCH 31.5 H MCHC 32.6 RDW Coeff of Leonardo 13.0 Plt Count 213 Immature Gran % (Auto) 0.2 Neut % (Auto) 71.7 Lymph % (Auto) 17.2 Shackelford % (Auto) 7.8 Eos % (Auto) 2.6 Baso % (Auto) 0.5 Immature Gran # (Auto) 0.0 Neut # 8.2 H Lymph # 2.0 Shackelford # 0.9 Eos # 0.3 Baso # 0.1 Puncture Site O2 Saturation ABG pH ABG pCO2 ABG pO2 ABG HCO3 ABG Total CO2 ABG Base Excess Alfonzo Test FiO2 % Sodium 139 Potassium 3.6 Chloride 96 L Carbon Dioxide 33 H Anion Gap 13.6 BUN 25 H Creatinine 1.06 Estimated GFR (MDRD) 67.00 BUN/Creatinine Ratio 23.58 Glucose 145 H Lactic Acid Calcium 8.7 Total Bilirubin 1.55 H AST 15 ALT 14 Alkaline Phosphatase 58 Total Creatine Kinase 90 Troponin I 0.0170 B-Natriuretic Peptide Total Protein 7.0 Albumin 3.2 L Globulin 3.8 Albumin/Globulin Ratio 0.84 Procalcitonin < 0.05 02/02/17 02/02/17 02/02/17 12:15 12:15 12:20 WBC RBC Hgb Hct MCV MCH MCHC RDW Coeff of Leonardo Plt Count Immature Gran % (Auto) Neut % (Auto) Lymph % (Auto) Shackelford % (Auto) Eos % (Auto) Baso % (Auto) Immature Gran # (Auto) Neut # Lymph # Shackelford # Eos # Baso # Puncture Site R rad O2 Saturation 90.0 L ABG pH 7.451 H ABG pCO2 46.1 H ABG pO2 58.0 L* ABG HCO3 32.1 H ABG Total CO2 33 H ABG Base Excess 8 H Alfonzo Test + FiO2 % 21.0 Sodium Potassium Chloride Carbon Dioxide Anion Gap BUN Creatinine Estimated GFR (MDRD) BUN/Creatinine Ratio Glucose Lactic Acid 12.2 Calcium Total Bilirubin AST ALT Alkaline Phosphatase Total Creatine Kinase Troponin I B-Natriuretic Peptide < 10 Total Protein Albumin Globulin Albumin/Globulin Ratio Procalcitonin Orders Category Date Time Status ABG DRAW REQUEST Stat CARDIO 02/02/17 12:02 Completed EKG-(ED ONLY) Stat CARDIO 02/02/17 13:41 Ordered NEBULIZER TREATMENT Stat CARDIO 02/02/17 12:06 Completed ABG Stat LAB 02/02/17 12:20 Completed B-TYPE NATRIURETIC PEPTIDE Stat LAB 02/02/17 12:15 Completed BLOOD CULTURE Stat LAB 02/02/17 12:25 Received CBC W/ AUTO DIFF Stat LAB 02/02/17 12:01 Completed COMPREHENSIVE METABOLIC PANEL Stat LAB 02/02/17 12:15 Completed CREATINE KINASE Stat LAB 02/02/17 12:15 Completed LACTIC ACID Stat LAB 02/02/17 12:15 Completed MOLECULAR GROUP A STREP Stat LAB 02/02/17 12:25 Results PROCALCITONIN Stat LAB 02/02/17 12:15 Completed STREP SCREEN Stat LAB 02/02/17 12:25 Results TROPONIN I Stat LAB 02/02/17 12:15 Completed Ipratropium/Albuterol Neb [Duoneb] MEDS 02/02/17 12:06 Discontinued 1 vial NEB ONCE STA NOREPINEPHRINE BITARTRATE INJ 4 MG in DEXTROSE 5 %- MEDS 02/02/17 14:00 Ordered WATER(250ml) Dextrose 5 %-Water [Dextrose 5%-Water IV Soln] 246 ml Norepinephrine Bitartrate Inj [Levophed] 4 mg IV 8 mcg/min Piperacillin Sodium/Tazobactam [Zosyn 4.5 gm] 4.5 gm MEDS 02/02/17 13:40 Ordered 0.9 % Sodium Chloride [Sodium Chloride] 100 ml IV ONCE Sodium Chloride 0.9% [Sodium Chloride] 1,000 ml MEDS 02/02/17 13:25 Active IV 250 mls/hr CT CHEST W/O CONTRAST Stat RADS 02/02/17 12:05 Completed Medications Generic Name Dose Route Start Last Admin Trade Name Freq PRN Reason Stop Dose Admin Sodium Chloride 1,000 mls @ 250 mls/hr 02/02/17 13:25 02/02/17 13:28 Sodium Chloride IV 02/02/17 17:24 250 mls/hr .Q4H STA Administration Piperacillin Sod/Tazobactam 100 mls @ 100 mls/hr 02/02/17 13:40 Sod 4.5 gm/ Sodium Chloride IV 02/02/17 14:39 ONCE STA Norepinephrine Bitartrate 4 mg 250 mls @ 30 mls/hr 02/02/17 14:00 / Dextrose IV .[id number] PATRICIA Protocol 8 MCG/MIN Discontinued Medications Generic Name Dose Route Start Last Admin Trade Name Freq PRN Reason Stop Dose Admin Albuterol/Ipratropium 1 vial 02/02/17 12:06 02/02/17 12:21 Duoneb NEB 02/02/17 12:07 1 vial ONCE STA Administration Vital Signs: Temp Pulse Resp BP Pulse Ox 02/02/17 11:49 98.3 F 82 24 89/48 L 91 L Departure - Departure Time of Disposition: 14:00 (while in the emergency dept did remain hypotensive but the systolic pressure of 80's was well tolerated no chest pain or acute events occured. did not produce any urine blood pressure at 1:55 pm 94/57) Disposition: ADMITTED INPATIENT Discharge Problem: COPD exacerbation Instructions: Pneumonitis (ED) Condition: Good Pt referred to PMD for follow-up: Yes Additional Instructions: Please call your Family Physician as soon as possible to schedule a follow-up appointment. rythm regulat narrow complex rate about 70 Allergies/Adverse Reactions: Allergies No Known Allergies Allergy (Verified 02/02/17 11:58) Home Medications: Ambulatory Orders Albuterol Sulfate [Proair Hfa] 2 puff IH Q6H #1 inhaler 03/14/16 Bimatoprost Opth [Lumigan] 1 drop OP DAILY 03/14/16 Carvedilol [Coreg] 3.125 mg PO BIDWM 03/14/16 Furosemide [Lasix Tab] 40 mg PO QDAC 03/14/16 Levothyroxine Sodium [Synthroid] 100 mcg PO QDAC 03/14/16 Lisinopril 5 mg PO BID 03/14/16 Pravastatin Sodium [Pravachol] 40 mg PO BEDTIME 03/14/16 Tamsulosin HCl [Flomax] 0.4 mg PO DAILY 03/14/16 Brinzolamide [Azopt] 1 drop OP BID 08/06/16 Diclofenac Sodium 1 drop OP TID 08/06/16 Prednisolone Opth Susp [Pred Forte 1% Opth Unique] 1 drop OP TID 08/06/16 Budesonide/Formoterol Fumarate [Symbicort 160-4.5 Mcg Inhaler] 2 puff IH BID 06/16 Ipratropium/Albuterol Neb [Duoneb] 1 vial NEB Q12HR PRN 02/02/17 Metolazone 2.5 mg PO TID 02/02/17 Disposition Discussed With: Patient, Family
[2017-02-02] MEDS ORDERED: SOLU-MEDROL 125 MG IVP STA (13:56)
[2017-02-02] MEDS ORDERED: VANCOMYCIN 1 GM in SODIUM CHLORIDE 250 ML IV STA (13:56)
[2017-02-02] MEDS ORDERED: LEVOPHED 4 MG in DEXTROSE 5%-WATER IV SOLN 246 ML IV SCH (14:00)
[2017-02-02] MEDS ORDERED: ZAROXOLYN PO SCH (15:00)
[2017-02-02] MEDS: SODIUM CHLORIDE 1,000 ML IV SCH (15:01)
--- NOTE | 2017-02-02 15:10 | CT ---
EXAM: CTA of the chest. History: Short of breath Comparison: Chest CT 02/02/2017 Technique: Multiplanar CT images through the thorax were obtained following administration of IV con trast. MIP images and 3-D reconstructions also acquired. Findings: Heart size is upper limits of normal. Great vessels are unremarkable. No pulmonary arter ial filling defects. No pathologically enlarged thoracic lymph nodes. Diffuse bronchial wall thicke ingris and bibasilar lung infiltrates not significantly changed. Mild emphysema again noted. No pneum othorax. No appreciable pleural fluid. Within the visualized upper abdomen, hepatic cyst again identified. Visualized osseous structures un changed with no acute osseous abnormalities identified. Impression: 1. No pulmonary embolism. 2. Bibasilar pneumonia.
[2017-02-02] MEDS ORDERED: LASIX IVP STA (16:36)
[2017-02-02] MEDS ORDERED: LASIX ONE (16:50)
[2017-02-02] MEDS: DUONEB NEB SCH ×2 (17:00→23:04)
[2017-02-02] MEDS: LOVENOX SUBCUT SCH (17:27)
[2017-02-02] MEDS: PRED FORTE 1% OPTH SOL OP SCH ×2 (17:28→20:22)
[2017-02-02] MEDS: VOLTAREN 0.1% OPTH SOL OP SCH ×2 (17:30→20:24)
[2017-02-02] MEDS ORDERED: COREG PO SCH (17:30)
[2017-02-02] MEDS: ZOSYN 3.375 GM 3.375 GM in SODIUM CHLORIDE 100 ML IV SCH (17:37)
[2017-02-02] MEDS: PRAVACHOL PO SCH (20:20)
[2017-02-02] MEDS: BRINZOLAMIDE OP SCH (20:23)
[2017-02-02 20:36] LABS: CREATINE KINASE 92 U/L
[2017-02-02] MEDS ORDERED: NON-FORMULARY MEDICATION (Lisinopril [Lisinopril] 5 MG) PO SCH (21:00)
[2017-02-02] MEDS ORDERED: ZESTRIL PO SCH (21:00)
[2017-02-02] MEDS ORDERED: SOLU-MEDROL 40 MG IVP SCH (21:00)
[2017-02-03] MEDS: ZOSYN 3.375 GM 3.375 GM in SODIUM CHLORIDE 100 ML IV SCH ×5 (01:54→23:43)
[2017-02-03] MEDS: SODIUM CHLORIDE 1,000 ML IV SCH (04:18)
[2017-02-03 05:00] LABS: BASOPHILS % (AUTO) 0.1 % (0.0-3.0); HEMATOCRIT 37.6 % (42.0-52.0); HEMOGLOBIN 12.5 g/dl (14.0-18.0); IMMATURE GRANULOCYTE % (AUTO) 0.6 % (0.0-5.0); LYMPHOCYTES # (AUTO) 1.1 K/uL (0.60-3.4); LYMPHOCYTES % (AUTO) 12.3 (10.0-50.0); MEAN CORPUSCULAR HEMOGLOBIN 31.8 pg (27.0-31.0); MEAN CORPUSCULAR HGB CONC 33.2 (31.8-35.4); MEAN CORPUSCULAR VOLUME 95.7 fl (80.0-94.0); MONOCYTES # (AUTO) 0.1 K/uL (0.4-2.0); MONOCYTES % (AUTO) 1.5 (0-10); NEUTROPHILS # (AUTO) 7.6 K/ul (2.0-6.9); NEUTROPHILS % (AUTO) 85.5; PLATELET COUNT 187 10^3/uL (140-440); RED BLOOD COUNT 3.93 10^6/ul (4.70-6.10); WHITE BLOOD COUNT 8.87 K/ul (4.2-10.2)
[2017-02-03 05:26] LABS: ALBUMIN 2.7 g/dL (3.4-5.0); ALBUMIN/GLOBULIN RATIO 0.82; ANION GAP 12.4; BILIRUBIN,TOTAL 1.11 mg/dL (0.00-1.20); CALCIUM 7.7 mg/dL (8.2-10.2); POTASSIUM 3.4 mmol/L (3.5-5.1)
[2017-02-03] MEDS: DUONEB NEB SCH ×4 (05:32→22:33)
[2017-02-03 05:34] LABS: TROPONIN I 0.013 ng/ml (0.0000-0.4000)
[2017-02-03] MEDS: SYNTHROID PO SCH (05:53)
[2017-02-03] MEDS ORDERED: LASIX TAB PO SCH (06:30)
[2017-02-03] MEDS: SOLU-MEDROL 125 MG IVP SCH ×3 (08:40→20:45)
[2017-02-03] MEDS ORDERED: FLOMAX PO SCH (09:00)
[2017-02-03] MEDS ORDERED: SOLU-MEDROL 40 MG IVP SCH (09:00)
[2017-02-03] MEDS: LOVENOX SUBCUT SCH (09:09)
[2017-02-03] MEDS: LUMIGAN OP SCH (09:10)
[2017-02-03] MEDS: K-DUR PO SCH ×2 (09:10→17:12)
[2017-02-03] MEDS: PRED FORTE 1% OPTH SOL OP SCH ×3 (09:10→20:45)
[2017-02-03] MEDS: LASIX TAB PO SCH (09:10)
[2017-02-03] MEDS: VOLTAREN 0.1% OPTH SOL OP SCH ×3 (09:11→20:46)
[2017-02-03] MEDS: BRINZOLAMIDE OP SCH ×2 (09:11→20:45)
--- NOTE | 2017-02-03 11:25 | PCM.PROG ---
Attending Provider: ATTENDING PROVIDER: Dr. MACKENZIE FUENTES This patient is seen with Lizette Latham, Nurse Practitioner. DATE OF SERVICE: 02/03/17 SUBJECTIVE: This 81 year old WHITE/ M was hospitalized 02/02/17. The patient is lying in bed, alert. He states he is feeling better. Shortness of breath is significantly improved. Chest x-ray reveals bilateral pneumonia. Leg swelling significantly improved. He received IV Lasix yesterday. He is in no distress. REVIEW OF SYSTEMS: CONSTITUTIONAL: No night sweats. No fatigue, malaise, lethargy. No fever or chills. HEENT: Eyes: No visual changes. No eye pain. No eye discharge. ENT: No runny nose. No epistaxis. No sinus pain. No odynophagia. No congestion. RESPIRATORY: Shortness of breath improved. Cough and congestion. No hemoptysis. CARDIOVASCULAR: No angina symptoms. No CHF symptoms. No atypical chest pain for CAD. No palpitations. No orthopnea.. GASTROINTESTINAL: No abdominal pain. No nausea or vomiting. No diarrhea or constipation. No hematemesis. No hematochezia. GENITOURINARY: No urgency. No frequency. No dysuria. No hematuria. No obstructive symptoms. No discharge. No pain. No significant abnormal bleeding. MUSCULOSKELETAL: No musculoskeletal pain; no joint swelling. NEUROLOGICAL: Awake, alert, oriented to time, place and person. No headache. No neck pain. No syncope. No seizures. No dizziness. PSYCHIATRIC: Not anxious. No depression. No suicidal thoughts. No homicidal thoughts. SKIN: No rash. No lesions. No wounds. ENDOCRINE: No unexplained weight loss. No weight gain. HEMATOLOGIC/LYMPHATIC: No anemia. No purpura. No petechiae. No prolonged or excessive bleeding. No palpable lymph nodes. PHYSICAL EXAMINATION: GENERAL: The patient is awake, alert and oriented, lying in bed in no distress. VITAL SIGNS: Temperature 97.4 F, Pulse 59, Respiratory Rate 20, BP 110/64, Pulse Ox 93% HEENT: Head normocephalic, atraumatic. Eyes: Extraocular muscles are intact. Pupils are equal, round and reactive to light and accommodation. Ears: No lesions. Nose appeared normal. Throat: No exudate or erythema. NECK: Supple. No JVD, no carotid bruit. No lymphadenopathy or thyromegaly. LUNGS: Diminished breath sounds bilaterally. Clear to auscultation. Percussion note normal. Chest symmetrical. HEART: S1, S2, no S3. No murmurs. No cyanosis or clubbing. No ascites. Pulses: Dorsalis pedis and posterior tibial pulses +1 to +2 both sides. ABDOMEN: Soft. Non-tender. Bowel sounds active. No CVA tenderness. No mass felt. EXTREMITIES: Trace bilateral lower extremity edema. Full range of motion of all extremities, equal. NEUROLOGIC: No focal deficit. Cranial nerves II through XII are grossly intact. No headache, no double vision or headache. SKIN: Not dry. Intact. Turgor-normal. LYMPHATIC: No palpable lymph nodes/no lymphedema. MUSCULOSKELETAL: Normal joints with no swelling. Muscle tone is normal. LAB REVIEW: 02/03/17 04:30 02/03/17 04:30 02/03/17 04:30: Sodium 138, Potassium 3.4 L, Chloride 100, Carbon Dioxide 29, Anion Gap 12.4, BUN 25 H, Creatinine 1.00, Estimated GFR (MDRD) 72.00, BUN/ Creatinine Ratio 25.00, Glucose 204 H D, Calcium 7.7 L, Total Bilirubin 1.11, AST 13 L, ALT 12, Alkaline Phosphatase 48 L, Total Protein 6.0, Albumin 2.7 L, Globulin 3.3, Albumin/Globulin Ratio 0.82 02/03/17 04:30: WBC 8.87, RBC 3.93 L, Hgb 12.5 L, Hct 37.6 L, MCV 95.7 H, MCH 31.8 H, MCHC 33.2, RDW Coeff of Leonardo 12.7, Plt Count 187, Immature Gran % (Auto) 0.6, Neut % (Auto) 85.5, Lymph % (Auto) 12.3, Arthur % (Auto) 1.5, Eos % (Auto) 0.0, Baso % (Auto) 0.1, Immature Gran # (Auto) 0.1, Neut # 7.6 H, Lymph # 1.1, Arthur # 0.1 L, Eos # 0.0, Baso # 0.0 02/03/17 04:30: Total Creatine Kinase 81, Troponin I 0.0130 02/02/17 20:09: Total Creatine Kinase 92, Troponin I < 0.0100 ASSESSMENT: 1. Bilateral pneumonia 2. Chronic leg edema 3. Hypotension PLAN: 1. Resume p.o. Lasix 2. Solu-Medrol 125 q.8hr 3. Potassium 20 mEq b.i.d. 4. Decrease IV fluids to 50 mL/hr 5. Continue duonebs Plan of care discussed in the presence of Gauge And Weigh Machine Operator and nurse. CONDITION: Stable SCRIBED BY: JOCELINE VINSON Crowning Hammer Operator scribed while in presence of service performed by Dr. Fuentes/Lizette Latham APRN on 02/03/17 ([id number])
--- NOTE | 2017-02-03 14:20 | DI ---
EXAM: CHEST FRONTAL VIEW HISTORY: Pneumonia, follow-up. COMPARISON: 08/06/2016 FINDINGS: Heart size remains within normal limits. No acute infiltrates are seen. No vascular conge stion. There is no consolidation, visible pleural fluid or pneumothorax. Bones reveal no acute fract ure. IMPRESSION: No acute cardiopulmonary process currently seen.
[2017-02-03] MEDS: PRAVACHOL PO SCH (20:45)
[2017-02-04] MEDS: SODIUM CHLORIDE 1,000 ML IV SCH ×2 (04:08→06:07)
[2017-02-04] MEDS: SOLU-MEDROL 125 MG IVP SCH ×3 (04:10→20:49)
[2017-02-04] MEDS: DUONEB NEB SCH ×4 (04:51→22:48)
[2017-02-04 05:12] LABS: BASOPHILS % (AUTO) 0.1 % (0.0-3.0); HEMATOCRIT 39.1 % (42.0-52.0); IMMATURE GRANULOCYTE % (AUTO) 0.6 % (0.0-5.0); LYMPHOCYTES # (AUTO) 1.5 K/uL (0.60-3.4); LYMPHOCYTES % (AUTO) 9.6 (10.0-50.0); MEAN CORPUSCULAR HEMOGLOBIN 31.5 pg (27.0-31.0); MEAN CORPUSCULAR HGB CONC 33.2 (31.8-35.4); MEAN CORPUSCULAR VOLUME 94.7 fl (80.0-94.0); MONOCYTES # (AUTO) 0.4 K/uL (0.4-2.0); MONOCYTES % (AUTO) 2.6 (0-10); NEUTROPHILS # (AUTO) 13.7 K/ul (2.0-6.9); NEUTROPHILS % (AUTO) 87.1; PLATELET COUNT 202 10^3/uL (140-440); RED BLOOD COUNT 4.13 10^6/ul (4.70-6.10); WHITE BLOOD COUNT 15.78 K/ul (4.2-10.2)
[2017-02-04 05:33] LABS: ALBUMIN/GLOBULIN RATIO 0.83; ANION GAP 15.5; BILIRUBIN,TOTAL 0.63 mg/dL (0.00-1.20); BUN/CREATININE RATIO 24.24; CALCIUM 8.5 mg/dL (8.2-10.2); CREATININE 1.32 mg/dL (0.60-1.10); POTASSIUM 3.5 mmol/L (3.5-5.1); TOTAL PROTEIN 6.6 g/dL (5.8-8.1)
[2017-02-04] MEDS: ZOSYN 3.375 GM 3.375 GM in SODIUM CHLORIDE 100 ML IV SCH ×2 (05:36→12:35)
[2017-02-04] MEDS: LASIX TAB PO SCH (05:36)
[2017-02-04] MEDS: SYNTHROID PO SCH (05:36)
[2017-02-04] MEDS ORDERED: DULCOLAX RC PRN (08:28)
[2017-02-04] MEDS: PRED FORTE 1% OPTH SOL OP SCH ×3 (09:02→21:25)
[2017-02-04] MEDS: LUMIGAN OP SCH (09:02)
[2017-02-04] MEDS: LOVENOX SUBCUT SCH (09:02)
[2017-02-04] MEDS: BRINZOLAMIDE OP SCH ×3 (09:03→21:38)
[2017-02-04] MEDS: K-DUR PO SCH ×2 (09:03→17:20)
[2017-02-04] MEDS: VOLTAREN 0.1% OPTH SOL OP SCH ×3 (09:04→20:52)
--- NOTE | 2017-02-04 10:26 | PCM.PROG ---
Attending Provider: ATTENDING PROVIDER: Dr. MACKENZIE FUENTES DATE OF SERVICE: 02/04/17 SUBJECTIVE: This 81 year old WHITE/ M was hospitalized 02/02/17. The patient is hospitalized with pneumonia. The patient is feeling better. He complains of not having a bowel movement. REVIEW OF SYSTEMS: CONSTITUTIONAL: No night sweats. No fatigue, malaise, lethargy. No fever or chills. HEENT: Eyes: No visual changes. No eye pain. No eye discharge. ENT: No runny nose. No epistaxis. No sinus pain. No odynophagia. No congestion. RESPIRATORY: No cough, no congestion. No hemoptysis. No shortness of breath. CARDIOVASCULAR: No angina symptoms. No CHF symptoms. No atypical chest pain for CAD. No palpitations. No orthopnea.. GASTROINTESTINAL: Constipation. No abdominal pain. No nausea or vomiting. No hematemesis. No hematochezia. GENITOURINARY: No urgency. No frequency. No dysuria. No hematuria. No obstructive symptoms. No discharge. No pain. No significant abnormal bleeding. MUSCULOSKELETAL: No musculoskeletal pain; no joint swelling. NEUROLOGICAL: Awake, alert, oriented to time, place and person. No headache. No neck pain. No syncope. No seizures. No dizziness. PSYCHIATRIC: Not anxious. No depression. No suicidal thoughts. No homicidal thoughts. SKIN: No rash. No lesions. No wounds. ENDOCRINE: No unexplained weight loss. No weight gain. HEMATOLOGIC/LYMPHATIC: No anemia. No purpura. No petechiae. No prolonged or excessive bleeding. No palpable lymph nodes. PHYSICAL EXAMINATION: GENERAL: The patient is awake, alert and oriented, lying in bed in no distress. VITAL SIGNS: Temperature 97.7 F, Pulse 61, Respiratory Rate 20, BP 112/70, Pulse Ox 94% HEENT: Head normocephalic, atraumatic. Eyes: Extraocular muscles are intact. Pupils are equal, round and reactive to light and accommodation. Ears: No lesions. Nose appeared normal. Throat: No exudate or erythema. NECK: Supple. No JVD, no carotid bruit. No lymphadenopathy or thyromegaly. LUNGS: Decreased breath sounds. Clear to auscultation. Percussion note normal. Chest symmetrical. HEART: S1, S2, no S3. No murmurs. No cyanosis or clubbing. No ascites. Pulses: Dorsalis pedis and posterior tibial pulses +1 to +2 both sides. ABDOMEN: Soft. Non-tender. Bowel sounds active. No CVA tenderness. No mass felt. EXTREMITIES: No edema. Full range of motion of all extremities, equal. NEUROLOGIC: No focal deficit. Cranial nerves II through XII are grossly intact. No headache, no double vision or headache. SKIN: Not dry. Intact. Turgor-normal. LYMPHATIC: No palpable lymph nodes/no lymphedema. MUSCULOSKELETAL: Normal joints with no swelling. Muscle tone is normal. LAB REVIEW: 02/04/17 04:30 02/04/17 04:30 02/04/17 04:30: Sodium 137, Potassium 3.5, Chloride 96 L, Carbon Dioxide 29, Anion Gap 15.5, BUN 32 H, Creatinine 1.32 H, Estimated GFR (MDRD) 52.00, BUN/ Creatinine Ratio 24.24, Glucose 340 H D, Calcium 8.5, Total Bilirubin 0.63, AST 14 L, ALT 17, Alkaline Phosphatase 53 L, Total Protein 6.6, Albumin 3.0 L, Globulin 3.6, Albumin/Globulin Ratio 0.83 02/04/17 04:30: WBC 15.78 H D, RBC 4.13 L, Hgb 13.0 L, Hct 39.1 L, MCV 94.7 H, MCH 31.5 H, MCHC 33.2, RDW Coeff of Leonardo 12.5, Plt Count 202, Immature Gran % ( Auto) 0.6, Neut % (Auto) 87.1, Lymph % (Auto) 9.6 L, [place] % (Auto) 2.6, Eos % ( Auto) 0.0, Baso % (Auto) 0.1, Immature Gran # (Auto) 0.1, Neut # 13.7 H, Lymph # 1.5, [place] # 0.4, Eos # 0.0, Baso # 0.0 ASSESSMENT: 1. Pneumonia seems to clinically be improving 2. Leg edema resolved 3. Hypotension with dehydration seems to be resolved 4. The patient is off antihypertensive medications, no evidence of CHF 5. BNP is less than 10, will monitor CBC and kidney function. Blood sugar elevated, will do A1C. Sliding scale with coverage. 6. Constipation PLAN: 1. Lovenox 40 mg subcut 2. Dulcolax 3. Xanax 0.5 mg at night for sleep Plan and coordination of the patient's care discussed in the presence of Medical Services Assistant and nurse. CONDITION: Stable SCRIBED BY: JOCELINE VINSON Manager Of Security scribed while in presence of service performed by Dr. MACKENZIE FUENTES on 02/04/17 ([id number])
--- NOTE | 2017-02-04 10:44 | PN ---
DATE OF SERVICE: 02/02/17 SUBJECTIVE: 81 year old white male hospitalized with shortness of breath. On further work up the patient's BNP was less than 15. All the blood tests were practically acceptable. Blood gasses showed pO2 58, pCO2 46 with saturation 90% on room air with pH 7.45. Procalcitonin and Lactic acid negative. Creatinine 1, BUN 25. The patient's chest x-ray showed pneumonia. PHYSICAL EXAMINATION: GENERAL: The patient is oriented to time, place and person. VITAL SIGNS: Temperature 98.3, pulse 82, respiratory rate 24, Blood pressure 90 /48. HEENT: Head normocephalic, atraumatic. Eyes: Extraocular muscles are intact. Pupils are equal, round and reactive to light and accommodation. Ears: No lesions. Nose appeared normal. Throat: No exudate or erythema. NECK: Supple. No JVD, no carotid bruit. No lymphadenopathy or thyromegaly. LUNGS: Decreased breath sounds. Clear to auscultation. Percussion note normal. Chest symmetrical. HEART: S1, S2, no S3. No murmurs. No cyanosis or clubbing. No ascites. Pulses: Dorsalis pedis and posterior tibial pulses +1 to +2 both sides. ABDOMEN: Soft. Nontender. Bowel sounds active. No CVA tenderness. No mass felt. EXTREMITIES: +1 pitting edema. Full range of motion of all extremities, equal. NEUROLOGIC: No focal deficit. Cranial nerves II through XII are grossly intact. No headache, no double vision or headache. SKIN: Not dry. Intact. Turgor - normal. LYMPHATIC: No palpable lymph nodes/no lymphedema. MUSCULOSKELETAL: Normal joints with no swelling. Muscle tone is normal. ASSESSMENT: 1. Pneumonitis/Bronchitis with respiratory failure 2. Chronic lung disease PLAN: 1. IV Steroids 2. IV antibiotics 3. Telemetry 4. Continue NEBS treatment 5. Continue Levothyroxine, Lisinopril, Pravastatin and Flomax. CONDITION: Stable TIME SPENT: More than 30 minutes. Plan and coordination of the patient's care discussed in the presence of nurse. KENTRELL
[2017-02-04] MEDS: HUMULIN R SUBCUT PRN ×3 (10:57→20:17)
--- NOTE | 2017-02-04 14:41 | HP ---
DATE OF SERVICE: 02/02/17 REASON FOR HOSPITALIZATION/HISTORY OF PRESENT ILLNESS: The patient is an 81 year old white male who presented to the emergency room complaining of shortness of breath. He stated that he was coughing some, his shortness of breath had gradually been worsening for the past several days. He has not been running fever. He has a history of COPD. PAST MEDICAL HISTORY: Obesity Coronary artery disease COPD Hypertension Hypothyroidism Dyslipidemia Congestive heart failure Chronic leg edema Hypertension BPH Osteoarthritis PAST SURGICAL HISTORY: Tonsillectomy REVIEW OF SYSTEMS: CONSTITUTIONAL: No night sweats. Malaise. Generalized weakness. No fever or chills. HEENT: Eyes: No visual changes. No eye pain. No eye discharge. ENT: No runny nose. No epistaxis. No sinus pain. No sore throat. No odynophagia. No ear pain. No congestion. RESPIRATORY: Cough, no congestion. No hemoptysis. Shortness of breath. No wheezing. CARDIOVASCULAR: No angina symptoms. No CHF symptoms. No atypical chest pain for CAD. No palpitations. No orthopnea. GASTROINTESTINAL: No abdominal pain. No nausea or vomiting. No diarrhea or constipation. No hematemesis. No hematochezia. GENITOURINARY: No urgency. No frequency. No dysuria. No hematuria. No obstructive symptoms. No discharge. No pain. No significant abnormal bleeding. MUSCULOSKELETAL: No musculoskeletal pain. No joint swelling. No arthritis. Leg edema. Generalized weakness. NEUROLOGICAL: No headache. No neck pain. No syncope. No seizures. No dizziness. Alert and oriented. PSYCHIATRIC: Not anxious. No depression. No suicidal thoughts. No homicidal thoughts. SKIN: No rash. No lesions. No wounds. ENDOCRINE: No unexplained weight loss. No weight gain. HEMATOLOGIC/LYMPHATIC: No anemia. No purpura. No petechiae. No prolonged or excessive bleeding. No palpable lymph nodes. PERSONAL/FAMILY/SOCIAL HISTORY: The patient is a former smoker. 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 He denies any alcohol or illicit drug use. No pertinent family history. MEDICATIONS: Lumigan 1 drop OP daily Flomax 0.4mg PO daily Lasix 40mg PO QDAC Coreg 3.125mg PO twice a day Pravachol 40mg PO bedtime Synthroid 100 mcg PO QDAC Lisinopril 5mg PO twice a day ProAir Hfa two puff IH Q 6 hours Pred Forte one drop OP three times a day Diclofenac Sodium 2.5ml one drop OP three times a day Azopt 15ml one drop OP twice a day Metolazone 2.5mg PO three times a day Symbicort 160-4.5mcg two puff IH twice a day DUONEB Q 012 hour PRN ALLERGIES: No known allergies PHYSICAL EXAMINATION: GENERAL: The patient is ill appearing in mild distress. VITAL SIGNS: Temperature 98.3, heart rate 82, respiratory rate 24, blood pressure 89/48 and pulse ox 91%. HEENT: Head normocephalic, atraumatic. Eyes: Extraocular muscles are intact. Pupils are equal, round and reactive to light and accommodation. Ears: No lesions. Nose appeared normal. Throat: No exudate or erythema. NECK: Supple. No JVD, no carotid bruit. No lymphadenopathy or thyromegaly. LUNGS: Diminished breath sounds bilaterally with crepitations at the bases. Percussion note normal. Chest symmetrical. HEART: S1, S2, no S3. No murmurs. No cyanosis or clubbing. No ascites. Pulses: Dorsalis pedis and posterior tibial pulses +1 to +2 both sides. ABDOMEN: Soft. Nontender. Bowel sounds active times four quadrants. No CVA tenderness. No mass felt. No hepatosplenomegaly EXTREMITIES: +1 pitting edema bilateral lower extremities. Negative Homans sign bilaterally. Full range of motion of all extremities, equal. NEUROLOGIC: No focal deficit. Cranial nerves II through XII are grossly intact. No headache, no double vision or headache. The patient is alert and oriented times three. SKIN: [place], warm and dry. Intact. Turgor - normal. Chronic skin discoloration due to peripheral vascular disease. LYMPHATIC: No palpable lymph nodes/no lymphedema. MUSCULOSKELETAL: Normal joints with no swelling. Muscle tone is normal. LABS: WBC 11.38, hgb 14.0, hct 43.0, plt count 213, sodium 139, potassium 3.6, chloride 96, BUN 25, creatinine 1.06, glucose 145, total bilirubin 1.55, AST 15 , ALT 14, Alkaline phosphatase 58. ABG on room air O2 sat 90, pH 7.451, pCO2 46.1, pO2 58, bicarb 32.1, total Co2 33, base excess of 8. CT of the chest revealed bilateral lower airway thickening with developing ground glass consolidation in the bases suggestive of pneumonia, minimal emphysema which was stable. CTA of the chest reveal bibasilar pneumonia. ASSESSMENT: 1. Acute lateral pneumonia 2. COPD 3. Obesity 4. Hypotension 5. Shortness of breath 6. Acute respiratory distress PLAN: 1. Will admit to Special Care Unit 2. Routine telemetry orders 3. EKG 4. CBC and CMP daily 5. Hold Coreg and Flomax due to hypotension 6. Give Lasix 20mg IV due to severe leg edema 7. Start Zosyn IV 4.5grams 8. D5 1/2 normal saline at 75cc an hour 9. Elevate the legs Will follow closely TIME SPENT: More than 70 minutes. MTDD
--- NOTE | 2017-02-04 14:58 | RS.OTINEVL ---
Subjective - Patient information Date of Evaluation: 02/04/17 Date of Arrival on Unit: 02/02/17 Admitted From:: In-House Transfer Diagnosis: Pneumonia, Weakness Usual Living Arrangement: Alone Living Arrangement Comments: Pt has been staying with his lady friend at her home because he is afraid she will fall. Pt reports he has glaucoma and is not able to drive much. He reports he is not able to tell if his feet are on the pedals or not. Medical History: Hypertension, COPD Medical History Comments:: Pt has pneumonia, coughing and SOA with functional mobility. Surgical History Comments:: T &A Subjective Information/ Patient Comments:: "I get short of breath when I get up and walk around." - Level of function Abilities prior to this admission: Pt was driving some. Pt has low vision. Pt lives with his lady friend and he sleeps in a chair. Current Level of Function: Partially Dependent Pain Assessment - Pain Pain Score: 0 Interventions - Objective Patient Orientation: Person, Place, Time, Situation Current Interventions: IV's, Oxygen, Telemetry Interventions - ROM Right Upper Extremity AROM: WFL's Left Upper Extremity AROM: WFL's - Strength Right Upper Extremity Strength: Mild Weakness Left Upper Extremity Strength: Mild Weakness - Sensation Right Upper Extremity Sensation: Intact/Normal Left Upper Extremity Sensation: Intact/Normal Balance - Sitting Balance Static Sitting Balance: Fair Dynamic Sitting Balance: Fair - Standing Balance Static Standing Balance: Poor Dynamic Standing Balance: Poor - Comments Balance Assessment Comments: Pt cruises on the furniture. Balance is Poor+ ADL Skills - Self Feeding Self Feeding: Independent - Grooming Grooming: Supervision - Bathing Bathing UE: Independent, Supervision Bathing LE: Supervision - Dressing Dressing UE: Supervision Dressing LE: Mod Assist - Toilet Management Toileting Management: Min Assist Functional Mobility - Bed Mobility Rolling R/L: Independent Scooting: Independent Supine to Sit: CGA Sit to Supine: CGA - Transfers Sit to Stand: CGA Stand to Sit: CGA Stand Pivot Transfers: CGA - Ambulation Weight Bearing Status: FWB Assistive Device Used: No Assistive Device Assistance needed with Ambulation: CGA - Safety Awareness Safety Awareness: Good Additional Treatment Performed - Additional units charged ADL: 15 - Time with patient Total treatment time: 32 Activities Patient Interests:: Reading Books/Magazines, Watching Television, Visiting/ Socializing Patient Education Patient Education: Education of diagnosis, Home Exercise Program, Education of Plan of Care Teaching Recipient: Patient Teaching Methods: Discussion Assessment Problem List:: Decreased level of function, Requires training/education, Decreased safety/Risk of falls, Weakness Rehab Potential: Good Further Therapy Indicated?: Yes Short Term Goals - Goals GOAL 1: Pt to tolerated sink level ADLS with CGA. Goal to be met by: 02/11/17 GOAL 2: Pt to increase activity tolerace to 10 minutes. Goal to be met by: 02/11/17 GOAL 3: Pt to increase BUE strength to 4+/5. Goal to be met by: 02/11/17 Clinical Lab Scientist Goals GOAL 1: Pt to tolerated sink level ADLS (I). Goal to be met by: 02/13/17 GOAL 2: Pt to increase activity tolerace to 15 minutes. Goal to be met by: 02/13/17 GOAL 3: Pt to increase BUE strength to 5/5. Goal to be met by: 02/13/17 Plan Plan of Care: Therapeutic EX, Neuromuscular Re-Educ, Therapeutic Activity, Self- Care/Home Management Frequency of Treatment: 1-2 X day, as tolerated Duration of Treatment: 2 Weeks Anticipated Discharge Destination: Home Has the Physician been added for Co-signature?: Yes
[2017-02-04] MEDS: ZOSYN 3.375 GM 3.375 GM in SODIUM CHLORIDE 50 ML IV SCH ×2 (17:44→23:58)
[2017-02-04] MEDS: PRAVACHOL PO SCH (20:48)
[2017-02-04] MEDS: XANAX PO SCH (20:48)
[2017-02-05] MEDS: SODIUM CHLORIDE 1,000 ML IV SCH (03:42)
[2017-02-05] MEDS: DUONEB NEB SCH ×4 (05:05→23:12)
[2017-02-05] MEDS: SOLU-MEDROL 125 MG IVP SCH ×2 (06:49→21:30)
[2017-02-05] MEDS: SYNTHROID PO SCH (06:49)
[2017-02-05] MEDS: ZOSYN 3.375 GM 3.375 GM in SODIUM CHLORIDE 50 ML IV SCH ×3 (06:49→18:08)
[2017-02-05] MEDS: LASIX TAB PO SCH (06:49)
[2017-02-05] MEDS: HUMULIN R SUBCUT PRN ×4 (07:14→21:29)
[2017-02-05] MEDS: BRINZOLAMIDE OP SCH ×2 (08:17→21:31)
[2017-02-05] MEDS: PRED FORTE 1% OPTH SOL OP SCH ×3 (08:18→21:30)
[2017-02-05] MEDS: VOLTAREN 0.1% OPTH SOL OP SCH ×3 (08:18→21:31)
[2017-02-05] MEDS: LOVENOX SUBCUT SCH (08:18)
[2017-02-05] MEDS: LUMIGAN OP SCH (08:18)
[2017-02-05] MEDS: K-DUR PO SCH ×2 (08:18→16:32)
[2017-02-05 10:05] LABS: BASOPHILS % (AUTO) 0.1 % (0.0-3.0); HEMATOCRIT 39.8 % (42.0-52.0); HEMOGLOBIN 13.7 g/dl (14.0-18.0); IMMATURE GRANULOCYTE % (AUTO) 0.6 % (0.0-5.0); LYMPHOCYTES # (AUTO) 0.5 K/uL (0.60-3.4); LYMPHOCYTES % (AUTO) 4.1 (10.0-50.0); MEAN CORPUSCULAR HEMOGLOBIN 32.3 pg (27.0-31.0); MEAN CORPUSCULAR HGB CONC 34.4 (31.8-35.4); MEAN CORPUSCULAR VOLUME 93.9 fl (80.0-94.0); MONOCYTES # (AUTO) 0.4 K/uL (0.4-2.0); MONOCYTES % (AUTO) 3.3 (0-10); NEUTROPHILS % (AUTO) 91.9; PLATELET COUNT 214 10^3/uL (140-440); RED BLOOD COUNT 4.24 10^6/ul (4.70-6.10); WHITE BLOOD COUNT 13.04 K/ul (4.2-10.2)
[2017-02-05 10:23] LABS: ALBUMIN/GLOBULIN RATIO 0.86; ANION GAP 16.5; BILIRUBIN,TOTAL 0.51 mg/dL (0.00-1.20); BUN/CREATININE RATIO 20.27; CALCIUM 8.5 mg/dL (8.2-10.2); CREATININE 1.43 mg/dL (0.60-1.10); POTASSIUM 3.5 mmol/L (3.5-5.1); TOTAL PROTEIN 6.5 g/dL (5.8-8.1)
--- NOTE | 2017-02-05 10:35 | PCM.PROG ---
Attending Provider: ATTENDING PROVIDER: Dr. MACKENZIE FUENTES This patient is seen with Lizette Latham, Nurse Practitioner. DATE OF SERVICE: 02/05/17 SUBJECTIVE: This 81 year old WHITE/ M was hospitalized 02/02/17. The patient is lying in bed, alert. Shortness of breath is better. Cough improved. REVIEW OF SYSTEMS: CONSTITUTIONAL: No night sweats. No fatigue, malaise, lethargy. No fever or chills. HEENT: Eyes: No visual changes. No eye pain. No eye discharge. ENT: No runny nose. No epistaxis. No sinus pain. No odynophagia. No congestion. RESPIRATORY: Cough and congestion. No hemoptysis. No shortness of breath. CARDIOVASCULAR: No angina symptoms. No CHF symptoms. No atypical chest pain for CAD. No palpitations. No orthopnea.. GASTROINTESTINAL: No abdominal pain. No nausea or vomiting. No diarrhea or constipation. No hematemesis. No hematochezia. GENITOURINARY: No urgency. No frequency. No dysuria. No hematuria. No obstructive symptoms. No discharge. No pain. No significant abnormal bleeding. MUSCULOSKELETAL: No musculoskeletal pain; no joint swelling. NEUROLOGICAL: Awake, alert, oriented to time, place and person. No headache. No neck pain. No syncope. No seizures. No dizziness. PSYCHIATRIC: Not anxious. No depression. No suicidal thoughts. No homicidal thoughts. SKIN: No rash. No lesions. No wounds. ENDOCRINE: No unexplained weight loss. No weight gain. HEMATOLOGIC/LYMPHATIC: No anemia. No purpura. No petechiae. No prolonged or excessive bleeding. No palpable lymph nodes. PHYSICAL EXAMINATION: GENERAL: The patient is awake, alert and oriented, lying in bed in no distress. VITAL SIGNS: Temperature 97.8 F, Pulse 74, Respiratory Rate 20, BP 110/66, Pulse Ox 92% HEENT: Head normocephalic, atraumatic. Eyes: Extraocular muscles are intact. Pupils are equal, round and reactive to light and accommodation. Ears: No lesions. Nose appeared normal. Throat: No exudate or erythema. NECK: Supple. No JVD, no carotid bruit. No lymphadenopathy or thyromegaly. LUNGS: Diminished breath sounds bilaterally. Clear to auscultation. Percussion note normal. Chest symmetrical. HEART: S1, S2, no S3. No murmurs. No cyanosis or clubbing. No ascites. Pulses: Dorsalis pedis and posterior tibial pulses +1 to +2 both sides. ABDOMEN: Soft. Non-tender. Bowel sounds active. No CVA tenderness. No mass felt. EXTREMITIES: Trace 2+ to 1_ bilateral lower extremity edema. Full range of motion of all extremities, equal. NEUROLOGIC: No focal deficit. Cranial nerves II through XII are grossly intact. No headache, no double vision or headache. SKIN: Not dry. Intact. Turgor-normal. LYMPHATIC: No palpable lymph nodes/no lymphedema. MUSCULOSKELETAL: Normal joints with no swelling. Muscle tone is normal. LAB REVIEW: 02/04/17 04:30 02/04/17 04:30 02/04/17 05:00: Hemoglobin A1c 6.5 H ASSESSMENT: 1. Pneumonia seems to clinically be improving 2. Leg edema 3. Hypotension with dehydration seems to be resolved 4. The patient is off antihypertensive medications, no evidence of CHF 5. BNP is less than 10, will monitor CBC and kidney function. Blood sugar elevated, will do A1C. Sliding scale with coverage. 6. Constipation PLAN: 1. Repeat chest x-ray 2. CBC, CMP 3. Encouraged to be up and about 4. D/C IV fluids 5. Solu-Medrol q.12 Plan and coordination of the patient's care discussed in the presence of Product Transfer Pumper and nurse. CONDITION: Stable SCRIBED BY: JOCELINE VINSON Patient Safety Officer scribed while in presence of service performed by Dr. Fuentes/Lizette Latham APRN on 02/05/17 ([id number])
--- NOTE | 2017-02-05 14:34 | DI ---
EXAM: CHEST FRONTAL AND LATERAL VIEWS HISTORY: Cough, shortness of breath. COMPARISON: 02/03/2017 FINDINGS: Upper limit normal heart size is stable. Lungs appear hyperinflated. No acute infiltrates are seen. No vascular congestion. There is no consolidation, visible pleural fluid or pneumothorax . Bones reveal no acute fracture. IMPRESSION: Hyperinflation. No acute cardiopulmonary process.
[2017-02-05] MEDS: XANAX PO SCH (21:30)
[2017-02-05] MEDS: PRAVACHOL PO SCH (21:30)
[2017-02-06] MEDS: ZOSYN 3.375 GM 3.375 GM in SODIUM CHLORIDE 50 ML IV SCH ×3 (00:04→12:00)
[2017-02-06] MEDS: DUONEB NEB SCH ×2 (05:06→12:00)
[2017-02-06 05:32] LABS: BASOPHILS % (AUTO) 0.1 % (0.0-3.0); HEMATOCRIT 41.9 % (42.0-52.0); HEMOGLOBIN 13.9 g/dl (14.0-18.0); IMMATURE GRANULOCYTE % (AUTO) 1.1 % (0.0-5.0); LYMPHOCYTES % (AUTO) 8.7 (10.0-50.0); MEAN CORPUSCULAR HEMOGLOBIN 31.9 pg (27.0-31.0); MEAN CORPUSCULAR HGB CONC 33.2 (31.8-35.4); MEAN CORPUSCULAR VOLUME 96.1 fl (80.0-94.0); MONOCYTES # (AUTO) 0.4 K/uL (0.4-2.0); MONOCYTES % (AUTO) 3.6 (0-10); NEUTROPHILS # (AUTO) 9.6 K/ul (2.0-6.9); NEUTROPHILS % (AUTO) 86.5; PLATELET COUNT 237 10^3/uL (140-440); RED BLOOD COUNT 4.36 10^6/ul (4.70-6.10); WHITE BLOOD COUNT 11.06 K/ul (4.2-10.2)
[2017-02-06] MEDS: LASIX TAB PO SCH (05:54)
[2017-02-06] MEDS: SYNTHROID PO SCH (05:54)
[2017-02-06 05:56] LABS: ALBUMIN/GLOBULIN RATIO 0.83; ANION GAP 15.9; BILIRUBIN,TOTAL 0.55 mg/dL (0.00-1.20); BUN/CREATININE RATIO 24.26; CALCIUM 8.6 mg/dL (8.2-10.2); CREATININE 1.36 mg/dL (0.60-1.10); POTASSIUM 3.9 mmol/L (3.5-5.1); TOTAL PROTEIN 6.6 g/dL (5.8-8.1)
[2017-02-06] MEDS: HUMULIN R SUBCUT PRN ×2 (06:19→11:14)
[2017-02-06] MEDS: K-DUR PO SCH (08:57)
[2017-02-06] MEDS: LOVENOX SUBCUT SCH (08:57)
[2017-02-06] MEDS: PRED FORTE 1% OPTH SOL OP SCH (08:57)
[2017-02-06] MEDS: LUMIGAN OP SCH (08:58)
[2017-02-06] MEDS: VOLTAREN 0.1% OPTH SOL OP SCH (08:59)
[2017-02-06] MEDS: BRINZOLAMIDE OP SCH (08:59)
[2017-02-06] MEDS: SOLU-MEDROL 125 MG IVP SCH (09:00)
--- NOTE | 2017-02-06 11:02 | PCM.PROG ---
Attending Provider: ATTENDING PROVIDER: Dr. MACKENZIE FUENTES This patient is seen with Lizette Latham, Nurse Practitioner. DATE OF SERVICE: 02/06/17 SUBJECTIVE: This 81 year old WHITE/ M was hospitalized 02/02/17. The patient is hospitalized with bronchitis, COPD and leg edema. Condition has steadily improved leg edema is better. No PND, no orthopnea. REVIEW OF SYSTEMS: CONSTITUTIONAL: No night sweats. No fatigue, malaise, lethargy. No fever or chills. HEENT: Eyes: No visual changes. No eye pain. No eye discharge. ENT: No runny nose. No epistaxis. No sinus pain. No odynophagia. No congestion. RESPIRATORY: No cough, no congestion. No hemoptysis. No shortness of breath. CARDIOVASCULAR: No angina symptoms. No CHF symptoms. No atypical chest pain for CAD. No palpitations. No orthopnea.. GASTROINTESTINAL: No abdominal pain. No nausea or vomiting. No diarrhea or constipation. No hematemesis. No hematochezia. GENITOURINARY: No urgency. No frequency. No dysuria. No hematuria. No obstructive symptoms. No discharge. No pain. No significant abnormal bleeding. MUSCULOSKELETAL: No musculoskeletal pain; no joint swelling. NEUROLOGICAL: Awake, alert, oriented to time, place and person. No headache. No neck pain. No syncope. No seizures. No dizziness. PSYCHIATRIC: Not anxious. No depression. No suicidal thoughts. No homicidal thoughts. SKIN: No rash. No lesions. No wounds. ENDOCRINE: No unexplained weight loss. No weight gain. HEMATOLOGIC/LYMPHATIC: No anemia. No purpura. No petechiae. No prolonged or excessive bleeding. No palpable lymph nodes. PHYSICAL EXAMINATION: GENERAL: The patient is awake, alert and oriented, lying in bed in no distress. VITAL SIGNS: Temperature 97.5 F, Pulse 83, Respiratory Rate 20, BP 129/73, Pulse Ox 93% HEENT: Head normocephalic, atraumatic. Eyes: Extraocular muscles are intact. Pupils are equal, round and reactive to light and accommodation. Ears: No lesions. Nose appeared normal. Throat: No exudate or erythema. NECK: Supple. No JVD, no carotid bruit. No lymphadenopathy or thyromegaly. LUNGS: Decreased breath sounds. Clear to auscultation. Percussion note normal. Chest symmetrical. HEART: S1, S2, no S3. No murmurs. No cyanosis or clubbing. No ascites. Pulses: Dorsalis pedis and posterior tibial pulses +1 to +2 both sides. ABDOMEN: Soft. Non-tender. Bowel sounds active. No CVA tenderness. No mass felt. EXTREMITIES: No edema. Full range of motion of all extremities, equal. NEUROLOGIC: No focal deficit. Cranial nerves II through XII are grossly intact. No headache, no double vision or headache. SKIN: Not dry. Intact. Turgor-normal. LYMPHATIC: No palpable lymph nodes/no lymphedema. MUSCULOSKELETAL: Normal joints with no swelling. Muscle tone is normal. LAB REVIEW: 02/06/17 05:10 02/06/17 05:10 02/06/17 05:10: Sodium 140, Potassium 3.9, Chloride 97 L, Carbon Dioxide 31, Anion Gap 15.9, BUN 33 H, Creatinine 1.36 H, Estimated GFR (MDRD) 50.00, BUN/ Creatinine Ratio 24.26, Glucose 289 H D, Calcium 8.6, Total Bilirubin 0.55, AST 15, ALT 22, Alkaline Phosphatase 51 L, Total Protein 6.6, Albumin 3.0 L, Globulin 3.6, Albumin/Globulin Ratio 0.83 02/06/17 05:10: WBC 11.06 H, RBC 4.36 L, Hgb 13.9 L, Hct 41.9 L, MCV 96.1 H, MCH 31.9 H, MCHC 33.2, RDW Coeff of Leonardo 12.7, Plt Count 237, Immature Gran % ( Auto) 1.1, Neut % (Auto) 86.5, Lymph % (Auto) 8.7 L, Woodford % (Auto) 3.6, Eos % ( Auto) 0.0, Baso % (Auto) 0.1, Immature Gran # (Auto) 0.1, Neut # 9.6 H, Lymph # 1.0, Woodford # 0.4, Eos # 0.0, Baso # 0.0 02/05/17 10:00: Sodium 138, Potassium 3.5, Chloride 96 L, Carbon Dioxide 29, Anion Gap 16.5, BUN 29 H, Creatinine 1.43 H, Estimated GFR (MDRD) 48.00, BUN/ Creatinine Ratio 20.27, Glucose 426 H, Calcium 8.5, Total Bilirubin 0.51, AST 15 , ALT 20, Alkaline Phosphatase 60, Total Protein 6.5, Albumin 3.0 L, Globulin 3.5, Albumin/Globulin Ratio 0.86 02/05/17 10:00: WBC 13.04 H, RBC 4.24 L, Hgb 13.7 L, Hct 39.8 L, MCV 93.9, MCH 32.3 H, MCHC 34.4, RDW Coeff of Leonardo 12.7, Plt Count 214, Immature Gran % (Auto) 0.6, Neut % (Auto) 91.9, Lymph % (Auto) 4.1 L, Woodford % (Auto) 3.3, Eos % (Auto) 0.0, Baso % (Auto) 0.1, Immature Gran # (Auto) 0.1, Neut # 12.0 H, Lymph # 0.5 L , Woodford # 0.4, Eos # 0.0, Baso # 0.0 ASSESSMENT: 1. BRONCHITIS/COPD 2. LVH BY ECHOCARDIOGRAM, MARCH 2016 3. LEG EDEMA, DEPENDENT PLAN: 1. Advised the patient to cut down on salt 2. Continue all medications 4. D/C home today 5. Keep appointment with Dr. Fuentes/Lizette Latham APRN on 02/17/17 for followup 6. Advised the patient to keep legs higher than hip at rest Plan and coordination of the patient's care discussed in the presence of Tire Maker and nurse. CONDITION: STABLE SCRIBED BY: JOCELINE VINSON, Door Fitter scribed while in presence of service performed by Dr. Fuentes/Lizette Latham APRN on 02/06/17 ([id number])
--- NOTE | 2017-02-06 11:33 | CM.DICTOOL ---
ADMISSION: 02/02/17 15:28 DISCHARGE: February 06, 2017 DATE OF SERVICE: 02/06/17 FINAL DIAGNOSIS PNEUMONIA HYPOTENSION HYPERTENSION HISTORY OF INFLUENZA A (03/18) HISTORY OF UTI WITH RAOUTELLA PLANTICOLA (03/04/16) COPD CORPULMONALE AND BILATERAL LEG EDEMA CARDIOMEGALY DYSLIPIDEMIA HYPOTHYROIDISM BPH DEGENERATIVE DISK DISEASE OSTEOARTHRITIS OBESITY TONSILLECTOMY FORMER SMOKER LAST VITALS Temp Pulse Resp BP Pulse Ox 97.5 F L 83 20 129/73 93 L 02/06/17 05:51 02/06/17 05:51 02/06/17 05:51 02/06/17 05:51 02/06/17 10:00 ACTIVE HOME MEDICATIONS Albuterol/Ipratropium (Duoneb) 1 vial NEB Q12HR PRN Last Admin: 02/06/17 05:06 Dose: 1 vial Bimatoprost (Lumigan) 1 drop OP DAILY [facility] Last Admin: 02/06/17 08:58 Dose: 1 drop Diclofenac Sodium (Voltaren 0.1% Opth Unique) 1 drop OP TID [facility] Last Admin: 02/06/17 08:59 Dose: Not Given Furosemide (Lasix Tab) 40 mg PO QDAC [facility] Last Admin: 02/06/17 05:54 Dose: 40 mg Levothyroxine Sodium (Synthroid) 100 mcg PO QDAC [facility] Last Admin: 02/06/17 05:54 Dose: 100 mcg Non-Formulary Medication (Brinzolamide [Azopt]) 1 drop OP BID [facility] Last Admin: 02/06/17 08:59 Dose: Not Given Pravastatin Sodium (Pravachol) 40 mg PO BEDTIME [facility] Last Admin: 02/05/17 21:30 Dose: 40 mg Prednisolone Acetate (Pred Forte 1% Opth Unique) 1 drop OP TID [facility] Last Admin: 02/06/17 08:57 Dose: 1 drop Albuterol Sulfate (Proair HFA) 2 puff IH Q6H PRN wheezing/shortness of air Last Admin: Carvedilol (Coreg) 3.125 mg PO BID [facility] Last Admin: Tamsulosin HCL (Flomax) 0.4 mg PO Daily Last Admin: Budesonide/Formoterol Fumarate (Symbicort 160-4.5 Mcg Inhalert) 2 puff IH BID Last Admin: Metolazone 2.5 mg PO 3 times a week as needed for leg swelling Last Admin: ALLERGIES No Known Allergies Allergy (Verified 02/02/17 11:58) NEW PRESCRIPTIONS: Augmentin 875 mg BID with meals for 7 days Prednisone 10 mg BID with meals for 5 days SMOKING: Not Applicable DISEASE SPECIFIC EDUCATION: Pneumonia Medication change Elevating legs Prescriptions LAB REVIEW: 02/06/17 05:10 02/06/17 05:10 02/06/17 05:10: Sodium 140, Potassium 3.9, Chloride 97 L, Carbon Dioxide 31, Anion Gap 15.9, BUN 33 H, Creatinine 1.36 H, Estimated GFR (MDRD) 50.00, BUN/ Creatinine Ratio 24.26, Glucose 289 H D, Calcium 8.6, Total Bilirubin 0.55, AST 15, ALT 22, Alkaline Phosphatase 51 L, Total Protein 6.6, Albumin 3.0 L, Globulin 3.6, Albumin/Globulin Ratio 0.83 02/06/17 05:10: WBC 11.06 H, RBC 4.36 L, Hgb 13.9 L, Hct 41.9 L, MCV 96.1 H, MCH 31.9 H, MCHC 33.2, RDW Coeff of Leonardo 12.7, Plt Count 237, Immature Gran % ( Auto) 1.1, Neut % (Auto) 86.5, Lymph % (Auto) 8.7 L, Payne % (Auto) 3.6, Eos % ( Auto) 0.0, Baso % (Auto) 0.1, Immature Gran # (Auto) 0.1, Neut # 9.6 H, Lymph # 1.0, Payne # 0.4, Eos # 0.0, Baso # 0.0 PLAN: Discharge home Diet: Heart Healthy Activity: Gradually resume as tolerated Elevate legs above the level of the heart when sitting and when lying in bed due to swelling Weigh daily; notify MD if weight gain of 3# overnight Medication change: Reduce Lisinopril 5 mg to one time daily May take Zaroxolyn 3 times weekly as needed for leg swelling An appointment is scheduled with Dr. Ramirez/Lizette Latham APRN on February 17 at 11:30. Mr. Castillo is alert and oriented x 3. He is independent with Activities of Daily Living. He is ambulatory without use of an assistive device. Oxygen saturation at rest on room air was 93% this morning. He was screened for oxygen need at discharge, but oxygen saturations did not drop below 91% with ambulation. Appetite is good with meal intakes of 100%. The skin is intact and without signs of skin breakdown noted. He has been instructed to elevate his legs above the level of the heart when he is sitting and when lying in bed. He voices understanding of this information. Randolph Ramirez MD Lizette Latham APRN
[2017-02-06 11:39] VITALS: BP 118/78; TEMP 98
--- NOTE | 2017-02-06 13:49 | PN ---
DATE OF SERVICE: 02/03/17 SUBJECTIVE: The patient was seen and examined with Nurse Practitioner. The patient's condition has improved and leg edema is much less. The patient was acute respiratory failure with pO2 58, pCO2 46, pH 7.45 with saturation close to 90% on room air it is 94%. PHYSICAL EXAMINATION: HEENT: Head normocephalic, atraumatic. Eyes: Extraocular muscles are intact. Pupils are equal, round and reactive to light and accommodation. Ears: No lesions. Nose appeared normal. Throat: No exudate or erythema. NECK: Supple. No JVD, no carotid bruit. No lymphadenopathy or thyromegaly. LUNGS: More air entry. Clear to auscultation. Percussion note normal. Chest symmetrical. HEART: S1, S2, no S3. No murmurs. No cyanosis or clubbing. No ascites. Pulses: Dorsalis pedis and posterior tibial pulses +1 to +2 both sides. ABDOMEN: Soft. Nontender. Bowel sounds active. No CVA tenderness. No mass felt. EXTREMITIES: No edema. Full range of motion of all extremities, equal. NEUROLOGIC: No focal deficit. Cranial nerves II through XII are grossly intact. No headache, no double vision or headache. SKIN: Not dry. Intact. Turgor - normal. LYMPHATIC: No palpable lymph nodes/no lymphedema. MUSCULOSKELETAL: Normal joints with no swelling. Muscle tone is normal. CONDITION: Stable TIME SPENT: More than 30 minutes. Plan and coordination of the patient's care discussed in the presence of nurse. KENTRELL
--- NOTE | 2017-02-06 14:44 | PN ---
CODING FOR BILLING 02/02/17 LEVEL 5 02/03/17 INTERMEDIATE 02/04/17 INTERMEDIATE 02/05/17 INTERMEDIATE 02/06/17 DISCHARGE MTDD
--- NOTE | 2017-02-06 14:48 | PN ---
DATE OF SERVICE: 02/05/17 SUBJECTIVE: The patient's leg edema has subsided and pneumonia seems to be under control. He is breathing a lot better. His blood pressure is 110/66 with pulse of 74. PHYSICAL EXAMINATION: HEENT: Head normocephalic, atraumatic. Eyes: Extraocular muscles are intact. Pupils are equal, round and reactive to light and accommodation. Ears: No lesions. Nose appeared normal. Throat: No exudate or erythema. NECK: Supple. No JVD, no carotid bruit. No lymphadenopathy or thyromegaly. LUNGS: Decreased breath sounds but more air entry. Percussion note normal. Chest symmetrical. HEART: S1, S2, no S3. No murmurs. No cyanosis or clubbing. No ascites. Pulses: Dorsalis pedis and posterior tibial pulses +1 to +2 both sides. ABDOMEN: Soft. Nontender. Bowel sounds active. No CVA tenderness. No mass felt. EXTREMITIES: No edema. Full range of motion of all extremities, equal. NEUROLOGIC: No focal deficit. Cranial nerves II through XII are grossly intact. No headache, no double vision or headache. SKIN: Not dry. Intact. Turgor - normal. LYMPHATIC: No palpable lymph nodes/no lymphedema. MUSCULOSKELETAL: Normal joints with no swelling. Muscle tone is normal. The patient was seen and examined with Nurse Practitioner and Vascular Tech. TIME SPENT: More than 30 minutes. Plan and coordination of the patient's care discussed in the presence of nurse. KENTRELL
--- NOTE | 2017-02-09 11:49 | DS ---
DATE OF SERVICE: 02/06/17 FINAL DIAGNOSIS: 1. PNEUMONIA 2. HYPOTENSION 3. HYPERTENSION 4. HISTORY OF INFLUENZA A (03/18) 5. HISTORY OF UTI WITH RAOUTELLA PLANTICOLA (03/04/16) 6. COPD 7. CORPULMONALE AND BILATERAL LEG EDEMA 8. CARDIOMEGALY 9. DYSLIPIDEMIA 10. HYPOTHYROIDISM 11. BPH 12. DEGENERATIVE DISK DISEASE 13. OSTEOARTHRITIS 14. OBESITY 15. TONSILLECTOMY 16. FORMER SMOKER DISCHARGE INSTRUCTIONS: Followup appointment: Dr. Ramirez/Lizette Latham APRN on 02/17/17 at 11:30 MEDICATIONS AT DISCHARGE: Duoneb q.12hr p.r.n. Lumigan eyedrop one drop OP daily [facility] Voltaren one drop OP t.i.d. [facility] Lasix 40 mg p.o. q.d a.c. PAT[facility] Synthroid 100 mcg p.o. q.d a.c. PATRICIA Azopt one drop OP b.i.d. PATR[facility] Pravachol 40 mg p.o. bedtime [facility] Pred Forte 1% Opth Unique one drop OP t.i.d. PATRICIA ProAir HFA two puff IH q.6hr p.r.n. wheezing/shortness of air Coreg 3.125 mg p.o. b.i.d. with meal Flomax 0.4 mg p.o. daily Symbicort 160-4.5 mcg inhaler two puff IH b.i.d. Metolazone 2.5 mg p.o. three times a week as needed for leg swelling NEW PRESCRIPTIONS: Augmentin 875 mg b.i.d. with meals for 7 days Prednisone 10 mg b.i.d. with meals for 5 days MEDICATION CHANGE: Reduce Lisinopril 5 mg to one time daily May take Zaroxolyn 3 times weekly as needed for leg swelling DIET INSTRUCTIONS: Heart Healthy ACTIVITY: Gradually resume as tolerated. Elevate legs above the level of the heart when sitting and when lying in bed due to swelling. Weigh daily; notify M.D. if weight gain of 3# overnight. SMOKING: N/A DISEASE SPECIFIC EDUCATION: Pneumonia Medication change Elevating legs Prescriptions HOSPITAL COURSE: This is an 81-year-old white male who first came to the office in acute respiratory distress, was instructed to go to the emergency room, was found to have bilateral pneumonia with significantly abnormal ABGs with an 02 sat down to 86 in the emergency room. He was admitted, placed on IV steroids, Solu- Medrol 125 mg IV q.8hr along with Zosyn 3.375 mg IV q.6hr, started on Xopenex every 6 hours scheduled. He did have significant leg edema with +1 to +2 bilateral lower extremity edema. The patient had +1 and +2 pitting edema on admission. He was given Lasix 40 mg IV on admission and resumed his regular 40 mg of Lasix daily p.o. Over the course of several days, his breathing has significantly improved. Repeat chest x-ray yesterday showed resolution of bilateral pneumonia. He has trace edema in his legs with wrinkling. Pulses are good. Kidney function is good on discharge. BUN of 33, creatinine 1.36, sodium 140, potassium 3.9. White count 11.06, hemoglobin 13.9, hematocrit 41.9. The patient recently had an echo in March of 2016 and his BNP was less than 10 on this admission so it was thought that he did not have any component of CHF. He was hypotensive on admission so we held his Lisinopril and Coreg. We will restart his Coreg and cut down Lisinopril 5 mg once daily instead of twice daily. Blood pressure and vital signs have been stable. He has been afebrile since admission. Temperature 97.5, heart rate 83, respirations 20, BP 129/73, pulse ox 94%. He underwent a three-step oxygen test prior to discharge and passed. He does not need oxygen at home, maintain an oxygen saturation of 92 to 93%, up and about walking. He was placed on routine telemetry orders at admission. He has remained in normal sinus rhythm. Again, his chest x-ray showed significant improvement. His blood pressure improved with IV fluids. He will be sent home with Augmentin 875 mg b.i.d. for 7 days with meals along with Prednisone 10 mg b.i.d. times five. The patient is instructed on low sodium diet , to keep legs elevated due to chronic leg edema. He is instructed to weigh daily. His medications have been reviewed. Again, he is significantly improved. We will follow him up next week in the office. TIME SPENT: More than 60 minutes. KENTRELL
== END 2017-02-06 13:33 | disposition home or self-care (01) | DRG 193 ==
LOC: ED 11:48 → SCU 15:28 → MEDSURG B 02-04 09:29
PROVIDERS: ADMIT Internal Medicine; ATTEND Internal Medicine
DX: J18.9 Pneumonia, unspecified organism (principal); J96.00 Acute respiratory failure, unspecified whether with hypoxia or hypercapnia; J44.1 Chronic obstructive pulmonary disease with (acute) exacerbation; I95.9 Hypotension, unspecified; R06.02 Shortness of breath; I25.10 Atherosclerotic heart disease of native coronary artery without angina pectoris; I10 Essential (primary) hypertension; E03.9 Hypothyroidism, unspecified; E78.5 Hyperlipidemia, unspecified; I50.9 Heart failure, unspecified; N40.0 Benign prostatic hyperplasia without lower urinary tract symptoms; R60.0 Localized edema; I27.81 Cor pulmonale (chronic); I51.7 Cardiomegaly; M50.30 Other cervical disc degeneration, unspecified cervical region; M51.36 Other intervertebral disc degeneration, lumbar region; M51.34 Other intervertebral disc degeneration, thoracic region; M19.90 Unspecified osteoarthritis, unspecified site; E66.9 Obesity, unspecified; K59.00 Constipation, unspecified; R05 Cough; Z79.899 Other long term (current) drug therapy; Z86.19 Personal history of other infectious and parasitic diseases; Z87.440 Personal history of urinary (tract) infections; Z87.891 Personal history of nicotine dependence
CPT/HCPCS: 36415; 80053; 82550; 82803; 82962; 83036; 83605; 83880; 84145; 84439; 84443; 84484; 85025; 87040; 87651; 87880; 93005; 93010; 94640; 94761; 96361; 96365; 96368; 96375; 99284

== ENCOUNTER 2017-05-17 13:15 | Inpatient (IN) ==
[2017-05-17] MEDS ORDERED: DUONEB NEB STA (13:22)
[2017-05-17] MEDS ORDERED: LASIX IVP STA (13:29)
[2017-05-17] MEDS ORDERED: SOLU-MEDROL 125 MG IVP STA (13:29)
--- NOTE | 2017-05-17 13:33 | ED.PDOC ---
General ED Provider: Dr. GABRIELLE MERLOS Chief Complaint: Shortness of Air Stated Complaint: Patient is an 82 year male who comes to the ER with increasing shortness of breath for the past 3 days. Admits to not following his Low salt diet as well. Admits to have gained some weight. Time Seen by Physician: 13:30 Mode of Arrival: Walk-In Information Source: Patient Primary Care Provider: MACKENZIE FUENTES Seen Within Last 72 Hours for Same Complaint By: ED Nursing and Triage Documentation Reviewed and Agree: Yes Reviewed sepsis parameters & appropriate labs ordered?: No System Inflammatory Response Syndrome: Pulse >90 BPM, Resp >20/Minute Sepsis Protocol: For patient's 13 years and over: Temp is 96.8 and below OR 101 and greater Pulse >90 BPM Resp >20/minute Acutely Altered Mental Status Are patient's symptoms suggestive of a new infection, such as: -Pneumonia -Skin, Soft Tissue -Endocarditis -UTI -Bone, Joint Infection -Implantable Device -Acute Abdominal Infection -Wound Infection -Meningitis -Blood Stream Catheter Infection -Unknown System Inflammatory Response Syndrome: Not Applicable Respiratory Complaint Exam - Respiratory Complaint/Exam Onset/Duration: 2 days Symptoms Are: Still present Timing: Constant Initial Severity: Moderate Current Severity: Severe Location: Chest Character: Reports: Productive cough Aggravating: Reports: URI Associated Signs and Symptoms: Reports: Rapid breathing, Dyspnea, URI Cardiac Risk Factors: Reports: CAD, Smoking Pseudomonas Risk Factors: Reports: Chronic Lung Disease Status Asthmaticus Risk Factors: Reports: Recent steriods Home Oxygen Use: No Recent Stress Test: No Recent Echo/LV Function: No Current Antibiotic Use: No Current Asthma Medication Use: Yes Respiratory Distress: Moderate Dysphagia Present: No Stridor Present: No JVD Present: No Accessory Muscle Use: No Retractions: Not Present Diminished Breath Sounds: No Sinus Tenderness: None Grunting Respirations: No Kussmaul Respirations: No Differential Diagnoses: COPD Exacerbation, Pneumonia, Bronchitis Review of Systems - Review Of Systems Constitutional: Reports: No symptoms Eyes: Reports: No symptoms Ears, Nose, Mouth, Throat: Reports: No symptoms Respiratory: Reports: Cough, Short of air Cardiac: Reports: No symptoms GI: Reports: No symptoms : Reports: No symptoms Musculoskeletal: Reports: No symptoms Skin: Reports: No symptoms Neurological: Reports: No symptoms Endocrine: Reports: No symptoms Hematologic/Lymphatic: Reports: No symptoms All Other Systems: Reviewed and Negative Past Medical History - Past Medical History Previously Healthy: Yes Endocrine: Reports: Hypothyroid, Dyslipidemia Cardiovascular: Reports: Hypertension, CHF Respiratory: Reports: COPD, Pneumonia Hematological: Reports: None Gastrointestinal: Reports: None Genitourinary: Reports: None Neuro/Psych: Reports: None Musculoskeletal: Reports: None Cancer: Reports: None Other Pertinent Past Medical History: tonsils, GLAUCOMA SURGERY - Surgical History General Surgical History: Reports: Tonsillectomy, Other (GLAUCOMA SURGERY) - Family History Family History: Reports: Unknown - Social History Smoking Status: Former smoker Hx Substance Use: No Alcohol Screening: None - Immunizations Tetanus Shot up to Date: No Influenza Vaccine within 12 Months: Yes (NOVEMBER) Pneumococcal Vaccine up to Date: Yes (ONE A LONG TIME AGO, ONE ONE OR TWO YEARS AGO) Physical Exam - Physical Exam Appearance: Ill-appearing Ill-appearing: Moderate Neck: Supple Respiratory: Breath sounds diminished Cardiovascular: RRR, Pulses normal GI/: Soft Musculoskeletal: Normal strength, ROM intact, No edema, No calf tenderness Skin: Warm Neurological: Sensation intact, Alert, Oriented Psychiatric: Anxious Critical Care Note - Critical Care Note Total Time (mins): 35 Course - Course Hematology/Chemistry: 05/18/17 04:45 05/18/17 04:45 Orders, Labs, Meds: Lab Review 05/17/17 05/17/17 05/17/17 13:22 13:45 13:45 WBC 10.27 H RBC 4.25 L Hgb 14.0 Hct 41.5 L MCV 97.6 H MCH 32.9 H MCHC 33.7 RDW Coeff of Leonardo 13.1 Plt Count 215 Immature Gran % (Auto) 0.3 Neut % (Auto) 78.5 Lymph % (Auto) 9.6 L [place] % (Auto) 8.6 Eos % (Auto) 2.5 Baso % (Auto) 0.5 Immature Gran # (Auto) 0.0 Neut # (Auto) 8.1 H Lymph # (Auto) 1.0 [place] # (Auto) 0.9 Eos # (Auto) 0.3 Baso # (Auto) 0.1 Puncture Site R rad O2 Saturation 95.0 ABG pH 7.53 H* ABG pCO2 35.9 ABG pO2 65.0 L ABG HCO3 29.8 H ABG Total CO2 31 H ABG Base Excess 7 H Alfonzo Test + FiO2 % 21.0 Sodium 139 Potassium 4.0 Chloride 95 L Carbon Dioxide 34 H Anion Gap 14.0 BUN 26 H Creatinine 1.19 H Estimated GFR (MDRD) 59.00 BUN/Creatinine Ratio 21.84 Glucose 136 H Lactic Acid Calcium 9.1 Total Bilirubin 1.1 AST 20 ALT 24 Alkaline Phosphatase 57 Total Creatine Kinase 80 Troponin I 0.0180 B-Natriuretic Peptide Total Protein 7.2 Albumin 3.5 Globulin 3.7 Albumin/Globulin Ratio 0.95 Procalcitonin 05/17/17 05/17/17 05/17/17 13:45 13:45 13:45 WBC RBC Hgb Hct MCV MCH MCHC RDW Coeff of Leonardo Plt Count Immature Gran % (Auto) Neut % (Auto) Lymph % (Auto) [place] % (Auto) Eos % (Auto) Baso % (Auto) Immature Gran # (Auto) Neut # (Auto) Lymph # (Auto) [place] # (Auto) Eos # (Auto) Baso # (Auto) Puncture Site O2 Saturation ABG pH ABG pCO2 ABG pO2 ABG HCO3 ABG Total CO2 ABG Base Excess Alfonzo Test FiO2 % Sodium Potassium Chloride Carbon Dioxide Anion Gap BUN Creatinine Estimated GFR (MDRD) BUN/Creatinine Ratio Glucose Lactic Acid 10.9 Calcium Total Bilirubin AST ALT Alkaline Phosphatase Total Creatine Kinase Troponin I B-Natriuretic Peptide < 10 Total Protein Albumin Globulin Albumin/Globulin Ratio Procalcitonin < 0.05 Orders Category Date Time Status ABG DRAW REQUEST Stat CARDIO 05/17/17 13:23 Completed EKG-(ED ONLY) Stat CARDIO 05/17/17 13:22 Completed NEBULIZER TREATMENT Routine CARDIO 05/17/17 15:11 Active NEBULIZER TREATMENT Stat CARDIO 05/17/17 13:23 Completed OXYGEN Routine CARDIO 05/17/17 15:05 Active INTAKE & OUTPUT Q8HR CARE 05/17/17 15:05 Active VITAL SIGNS Q4HR CARE 05/17/17 15:06 Active 2 GRAM SODIUM DIET DIETARY 05/17/17 Breakfast Ordered ED PLATING TECHNICIAN APPLIED .ONCE EMERGENCY 05/17/17 13:22 Active ABG Stat LAB 05/17/17 13:22 Completed B-TYPE NATRIURETIC PEPTIDE Stat LAB 05/17/17 13:45 Completed BASIC METABOLIC PANEL DAILY@0600 LAB 05/19/17 06:00 Ordered BLOOD CULTURE (ED ONLY) Stat LAB 05/17/17 13:45 Results CBC W/ AUTO DIFF DAILY@0600 LAB 05/18/17 04:45 Completed CBC W/ AUTO DIFF DAILY@0600 LAB 05/19/17 06:00 Ordered CBC W/ AUTO DIFF Stat LAB 05/17/17 13:45 Completed COMPREHENSIVE METABOLIC PANEL Stat LAB 05/17/17 13:45 Completed CREATINE KINASE Stat LAB 05/17/17 13:45 Completed LACTIC ACID Stat LAB 05/17/17 13:45 Completed PROCALCITONIN Stat LAB 05/17/17 13:45 Completed TROPONIN I Stat LAB 05/17/17 13:45 Completed Acetaminophen [Tylenol] MEDS 05/17/17 15:05 Active 650 mg PO Q4H PRN Azithromycin [Zithromax] MEDS 05/18/17 15:11 Active 250 mg PO DAILY Azithromycin [Zithromax] MEDS 05/17/17 15:05 Discontinued 500 mg PO ONCE STA Ceftriaxone Sodium [Rocephin] 1 gm MEDS 05/17/17 15:30 Active 0.9 % Sodium Chloride [Sodium Chloride] 50 ml IV DAILY Enoxaparin Sodium [Lovenox] MEDS 05/18/17 09:00 Active 40 mg SUBCUT DAILY Furosemide [Lasix] MEDS 05/18/17 06:30 Active 20 mg IVP QDAC Furosemide [Lasix] MEDS 05/17/17 13:29 Discontinued 40 mg IVP ONCE STA Ipratropium/Albuterol Neb [Duoneb] MEDS 05/17/17 13:22 Discontinued 1 vial NEB ONCE STA Ipratropium/Albuterol Neb [Duoneb] MEDS 05/17/17 15:05 Active 1 vial NEB RTQ2H PRN Ipratropium/Albuterol Neb [Duoneb] MEDS 05/17/17 20:00 Active 1 vial NEB RTQID Methylprednisolone Sod Succ/Pf [Solu-Medrol 125 mg] MEDS 05/17/17 13:29 Discontinued 125 mg IVP ONCE STA Methylprednisolone Sod Succ/Pf [Solu-Medrol 125 mg] MEDS 05/17/17 21:00 Active 125 mg IVP Q8HR Ondansetron HCl/Pf [Zofran 4 mg/2 ml] MEDS 05/17/17 15:05 Active 4 mg IVP Q6H PRN RESUSCITATION STATUS Routine OTHERS 03/18/18 15:05 Ordered CHEST, 1V AP ONLY Stat RADS 05/17/17 13:22 Completed Medications Generic Name Dose Route Start Last Admin Trade Name Freq PRN Reason Stop Dose Admin Acetaminophen 650 mg 05/17/17 15:05 Tylenol PO Q4H PRN fever Albuterol/Ipratropium 1 vial 05/17/17 20:00 05/18/17 20:08 Duoneb NEB 1 vial RTQID PATRICIA Administration Albuterol/Ipratropium 1 vial 05/17/17 15:05 Duoneb NEB RTQ2H PRN Wheezing Azithromycin 250 mg 05/18/17 15:11 05/18/17 16:44 Zithromax PO 05/21/17 09:01 250 mg DAILY PATRICIA Administration Bimatoprost 1 drop 05/18/17 09:00 05/18/17 10:19 Lumigan OP 1 drop DAILY PATRICIA Administration Budesonide/Formoterol Fumarate 2 puff 05/17/17 21:00 05/18/17 21:08 Symbicort 160-4.5 Mcg Inhaler IH 2 puff BID PATRICIA Administration Carvedilol 3.125 mg 05/17/17 17:30 05/18/17 16:44 Coreg PO 3.125 mg BIDWM PATRICIA Administration Diclofenac Sodium 1 drop 05/18/17 09:00 05/18/17 21:10 Voltaren 0.1% Opth Unique OP Not Given TID PATRICIA Enoxaparin Sodium 40 mg 05/18/17 09:00 05/18/17 10:24 Lovenox SUBCUT 40 mg DAILY PATRICIA Administration Furosemide 20 mg 05/18/17 06:30 05/18/17 05:52 Lasix IVP 20 mg QDAC PATRICIA Administration Ceftriaxone Sodium 1 gm/ 50 mls @ 75 mls/hr 05/17/17 15:30 05/18/17 10:19 Sodium Chloride IV 75 mls/hr DAILY PATRICIA Administration Levothyroxine Sodium 100 mcg 05/18/17 06:30 05/18/17 05:53 Synthroid PO 100 mcg QDAC PATRICIA Administration Lisinopril 2.5 mg 05/17/17 21:00 05/18/17 21:08 Zestril PO 2.5 mg BID PATRICIA Administration Methylprednisolone Sodium Succinate 125 mg 05/17/17 21:00 05/18/17 21:34 Solu-Medrol 125 Mg IVP 125 mg Q8HR PATRICIA Administration Non-Formulary Medication 1 drop 05/18/17 09:00 05/18/17 21:09 Brinzolamide [Azopt] OP Not Given BID [facility] Ondansetron HCl 4 mg 05/17/17 15:05 Zofran 4 Mg/2 Ml IVP Q6H PRN Nausea / Vomiting Pravastatin Sodium 40 mg 05/17/17 21:00 05/18/17 21:08 Pravachol PO 40 mg BEDTIME PATRICIA Administration Tamsulosin HCl 0.4 mg 05/18/17 09:00 05/18/17 10:20 Flomax PO 0.4 mg DAILY PATRICIA Administration Discontinued Medications Generic Name Dose Route Start Last Admin Trade Name Freq PRN Reason Stop Dose Admin Albuterol/Ipratropium 1 vial 05/17/17 13:22 05/17/17 13:30 Duoneb NEB 05/17/17 13:23 1 vial ONCE STA Administration Azithromycin 500 mg 05/17/17 15:05 05/17/17 15:33 Zithromax PO 05/17/17 15:06 500 mg ONCE STA Administration Diclofenac Sodium 1 drop 05/17/17 21:00 05/17/17 20:42 Voltaren 0.1% Opth Unique OP Not Given TID [facility] Furosemide 40 mg 05/17/17 13:29 05/17/17 13:36 Lasix IVP 05/17/17 13:30 40 mg ONCE STA Administration Furosemide 40 mg 05/18/17 06:30 Lasix Tab PO QDAC [facility] Ketorolac Tromethamine 30 mg 05/17/17 21:00 05/18/17 05:52 Toradol IVP 05/18/17 05:01 30 mg Q8HR PATRICIA Administration Lisinopril 5 mg 05/18/17 09:00 Zestril PO DAILY [facility] Methylprednisolone Sodium Succinate 125 mg 05/17/17 13:29 05/17/17 13:36 Solu-Medrol 125 Mg IVP 05/17/17 13:30 125 mg ONCE STA Administration Non-Formulary Medication 1 drop 05/17/17 21:00 05/17/17 20:42 Brinzolamide [Azopt] OP Not Given BID [facility] Vital Signs: Temp Pulse Resp BP Pulse Ox 05/17/17 13:16 98.4 F 94 H 38 H 126/68 92 L Departure - Departure Time of Disposition: 15:30 Disposition: ADMITTED INPATIENT Discharge Problem: COPD exacerbation Condition: Fair Pt referred to PMD for follow-up: No IPMP verified?: No Allergies/Adverse Reactions: Allergies No Known Allergies Allergy (Verified 02/02/17 11:58) Home Medications: Ambulatory Orders Bimatoprost Opth [[place]igan] 1 drop OP BEDTIME 03/14/16 Carvedilol [Coreg] 3.125 mg PO BIDWM 03/14/16 Furosemide [Lasix Tab] 40 mg PO QDAC 03/14/16 Levothyroxine Sodium [Synthroid] 100 mcg PO QDAC 03/14/16 Pravastatin Sodium [Pravachol] 40 mg PO BEDTIME 03/14/16 Tamsulosin HCl [Flomax] 0.4 mg PO BEDTIME 03/14/16 Brinzolamide [Azopt] 1 drop OP BID 08/06/16 Diclofenac Sodium 1 drop OP TID 08/06/16 Metolazone [Zaroxolyn] 2.5 mg PO MOWEFR PRN #1 tablet 02/06/17 Albuterol Sulfate 0.083% Neb [Albuterol 0.083% Neb] 1 vial NEB RTQ8H PRN Albuterol Sulfate [Proair Hfa] 2 puff IH Q6H PRN 05/17/17 Lisinopril [Zestril] 2.5 mg PO BID 05/17/17
--- NOTE | 2017-05-17 14:40 | DI ---
EXAM: Single view chest COMPARISON: Chest Xray from 02/05/2017 HISTORY: Cough FINDINGS: Lungs are clear with no lobar consolidation, failure, large effusion or significant atelec tasis. Cardiac and mediastinal silhouettes show no acute abnormality. No acute soft tissue or osseo us abnormalities. IMPRESSION: No active disease.
[2017-05-17] MEDS ORDERED: ZOFRAN 4 MG/2 ML IVP PRN (15:05)
[2017-05-17] MEDS ORDERED: ZITHROMAX PO STA (15:05)
[2017-05-17] MEDS ORDERED: DUONEB NEB PRN (15:05)
[2017-05-17] MEDS ORDERED: TYLENOL PO PRN (15:05)
[2017-05-17] MEDS ORDERED: ROCEPHIN ONE (15:26)
[2017-05-17] MEDS: ROCEPHIN 1 GM in SODIUM CHLORIDE 50 ML IV SCH (15:34)
[2017-05-17 16:03] VITALS: BMI 35.9
[2017-05-17] MEDS: COREG PO SCH (17:41)
[2017-05-17] MEDS: PRAVACHOL PO SCH (20:41)
[2017-05-17] MEDS: SYMBICORT 160-4.5 MCG INHALER IH SCH (20:41)
[2017-05-17] MEDS: ZESTRIL PO SCH (20:42)
[2017-05-17] MEDS: DUONEB NEB SCH (20:45)
[2017-05-17] MEDS ORDERED: VOLTAREN 0.1% OPTH SOL OP SCH (21:00)
[2017-05-17] MEDS ORDERED: BRINZOLAMIDE OP SCH (21:00)
[2017-05-17] MEDS: TORADOL IVP SCH (21:34)
[2017-05-17] MEDS: SOLU-MEDROL 125 MG IVP SCH (21:34)
[2017-05-18] MEDS: SOLU-MEDROL 125 MG IVP SCH ×3 (05:52→21:34)
[2017-05-18] MEDS: LASIX IVP SCH (05:52)
[2017-05-18] MEDS: TORADOL IVP SCH (05:52)
[2017-05-18] MEDS: SYNTHROID PO SCH (05:53)
[2017-05-18] MEDS: DUONEB NEB SCH ×4 (06:02→20:08)
[2017-05-18] MEDS ORDERED: LASIX TAB PO SCH (06:30)
[2017-05-18] MEDS ORDERED: ZESTRIL PO SCH (09:00)
--- NOTE | 2017-05-18 09:08 | PCM.PROG ---
Attending Provider: ATTENDING PROVIDER: Dr. MACKENZIE FUENTES This patient is seen with Lizette Latham, Nurse Practitioner. DATE OF SERVICE: 05/18/17 SUBJECTIVE: This 82 year old WHITE/ M was hospitalized 05/17/17. Alert and oriented. Shortness of breath is improved. Still coughing REVIEW OF SYSTEMS: CONSTITUTIONAL: No night sweats. No fatigue, malaise, lethargy. No fever or chills. Weakness. HEENT: Eyes: No visual changes. No eye pain. No eye discharge. ENT: No runny nose. No epistaxis. No sinus pain. No odynophagia. No congestion. RESPIRATORY: Cough, no congestion. No hemoptysis. No shortness of breath. CARDIOVASCULAR: No angina symptoms. No CHF symptoms. No atypical chest pain for CAD. No palpitations. No orthopnea.. GASTROINTESTINAL: No abdominal pain. No nausea or vomiting. No diarrhea or constipation. No hematemesis. No hematochezia. GENITOURINARY: No urgency. No frequency. No dysuria. No hematuria. No obstructive symptoms. No discharge. No pain. No significant abnormal bleeding. MUSCULOSKELETAL: No musculoskeletal pain; no joint swelling. NEUROLOGICAL: Awake, alert, oriented to time, place and person. No headache. No neck pain. No syncope. No seizures. No dizziness. PSYCHIATRIC: Not anxious. No depression. No suicidal thoughts. No homicidal thoughts. SKIN: No rash. No lesions. No wounds. Leg edema. ENDOCRINE: No unexplained weight loss. No weight gain. HEMATOLOGIC/LYMPHATIC: No anemia. No purpura. No petechiae. No prolonged or excessive bleeding. No palpable lymph nodes. PHYSICAL EXAMINATION: GENERAL: The patient is awake, alert and oriented, lying in bed in no distress. VITAL SIGNS: Temperature 97.5 F, Pulse 67, Respiratory Rate 18, BP 104/64, Pulse Ox 94% HEENT: Head normocephalic, atraumatic. Eyes: Extraocular muscles are intact. Pupils are equal, round and reactive to light and accommodation. Ears: No lesions. Nose appeared normal. Throat: No exudate or erythema. NECK: Supple. No JVD, no carotid bruit. No lymphadenopathy or thyromegaly. LUNGS: Diminished breath sounds. Clear to auscultation. Percussion note normal. Chest symmetrical. HEART: S1, S2, no S3. No murmurs. No cyanosis or clubbing. No ascites. Pulses: Dorsalis pedis and posterior tibial pulses +1 to +2 both sides. ABDOMEN: Soft. Non-tender. Bowel sounds active. No CVA tenderness. No mass felt. EXTREMITIES: 2+ bilateral leg edema. Full range of motion of all extremities, equal. NEUROLOGIC: No focal deficit. Cranial nerves II through XII are grossly intact. No headache, no double vision or headache. SKIN: Not dry. Intact. Turgor-normal. LYMPHATIC: No palpable lymph nodes/no lymphedema. MUSCULOSKELETAL: Normal joints with no swelling. Muscle tone is normal. LAB REVIEW: 05/18/17 04:45 05/18/17 04:45 05/18/17 04:45: Sodium 135 L, Potassium 4.2, Chloride 93 L, Carbon Dioxide 34 H , Anion Gap 12.2, BUN 37 H, Creatinine 1.34 H, Estimated GFR (MDRD) 51.00, BUN/ Creatinine Ratio 27.61, Glucose 242 H D, Calcium 8.6, Total Bilirubin 0.7, AST 17, ALT 21, Alkaline Phosphatase 49 L, Total Protein 6.5, Albumin 3.1 L, Globulin 3.4, Albumin/Globulin Ratio 0.91 05/18/17 04:45: WBC 9.91, RBC 3.93 L, Hgb 12.9 L, Hct 38.5 L, MCV 98.0 H, MCH 32.8 H, MCHC 33.5, RDW Coeff of Leonardo 13.0, Plt Count 193, Immature Gran % (Auto) 0.5, Neut % (Auto) 84.3, Lymph % (Auto) 13.2, [place] % (Auto) 1.9, Eos % (Auto) 0.0, Baso % (Auto) 0.1, Immature Gran # (Auto) 0.1, Neut # (Auto) 8.4 H, Lymph # (Auto) 1.3, [place] # (Auto) 0.2 L, Eos # (Auto) 0.0, Baso # (Auto) 0.0 ASSESSMENT: Please see below. 1. Acute bronchitis 2. COPD exacerbation 3. Chronic kidney disease 4. Leg edema 5. History of CHF PLAN: 1. Discontinue IV steroids. 2. Increase fluids orally Plan and coordination of the patient's care discussed in the presence of Sap Bobj Developer and nurse. SCRIBED BY: ABY GELLER Merchandiser Retail Representative scribed while in presence of service performed by Dr. Fuentes/Lizette Latham APRN on 05/18/17 ([id number])
[2017-05-18] MEDS: SYMBICORT 160-4.5 MCG INHALER IH SCH ×2 (10:19→21:08)
[2017-05-18] MEDS: LUMIGAN OP SCH (10:19)
[2017-05-18] MEDS: ROCEPHIN 1 GM in SODIUM CHLORIDE 50 ML IV SCH (10:19)
[2017-05-18] MEDS: ZESTRIL PO SCH ×2 (10:20→21:08)
[2017-05-18] MEDS: COREG PO SCH ×2 (10:20→16:44)
[2017-05-18] MEDS: FLOMAX PO SCH (10:20)
[2017-05-18] MEDS: BRINZOLAMIDE OP SCH ×2 (10:21→21:09)
[2017-05-18] MEDS: VOLTAREN 0.1% OPTH SOL OP SCH ×3 (10:21→21:10)
[2017-05-18] MEDS: LOVENOX SUBCUT SCH (10:24)
[2017-05-18] MEDS: ZITHROMAX PO SCH (16:44)
[2017-05-18] MEDS: PRAVACHOL PO SCH (21:08)
[2017-05-19] MEDS: DUONEB NEB SCH ×4 (05:10→21:50)
[2017-05-19] MEDS: LASIX IVP SCH (05:52)
[2017-05-19] MEDS: SOLU-MEDROL 125 MG IVP SCH ×3 (05:53→22:18)
[2017-05-19] MEDS: SYNTHROID PO SCH (05:54)
[2017-05-19] MEDS: ROCEPHIN 1 GM in SODIUM CHLORIDE 50 ML IV SCH (08:47)
[2017-05-19] MEDS: SYMBICORT 160-4.5 MCG INHALER IH SCH ×2 (09:03→22:14)
[2017-05-19] MEDS: COREG PO SCH ×2 (09:03→17:18)
[2017-05-19] MEDS: FLOMAX PO SCH (09:03)
[2017-05-19] MEDS: ZESTRIL PO SCH ×2 (09:03→22:13)
[2017-05-19] MEDS: LUMIGAN OP SCH (09:03)
[2017-05-19] MEDS: ZITHROMAX PO SCH (09:04)
[2017-05-19] MEDS: LOVENOX SUBCUT SCH (09:04)
[2017-05-19] MEDS: VOLTAREN 0.1% OPTH SOL OP SCH ×3 (09:06→22:15)
[2017-05-19] MEDS: BRINZOLAMIDE OP SCH ×2 (09:06→22:14)
--- NOTE | 2017-05-19 09:23 | PCM.PROG ---
Attending Provider: ATTENDING PROVIDER: Dr. MACKENZIE FUENTES This patient is seen with Lizette Latham, Nurse Practitioner. DATE OF SERVICE: 05/19/17 SUBJECTIVE: This 82 year old WHITE/ M was hospitalized 05/17/17. The patient is sitting in bed, alert. Leg edema is slightly improved. REVIEW OF SYSTEMS: CONSTITUTIONAL: No night sweats. No fatigue, malaise, lethargy. No fever or chills. HEENT: Eyes: No visual changes. No eye pain. No eye discharge. ENT: No runny nose. No epistaxis. No sinus pain. No odynophagia. No congestion. RESPIRATORY: No cough, no congestion. No hemoptysis. No shortness of breath. CARDIOVASCULAR: Leg edema. No angina symptoms. No CHF symptoms. No atypical chest pain for CAD. No palpitations. No orthopnea.. GASTROINTESTINAL: No abdominal pain. No nausea or vomiting. No diarrhea or constipation. No hematemesis. No hematochezia. GENITOURINARY: No urgency. No frequency. No dysuria. No hematuria. No obstructive symptoms. No discharge. No pain. No significant abnormal bleeding. MUSCULOSKELETAL: No musculoskeletal pain; no joint swelling. NEUROLOGICAL: Awake, alert, oriented to time, place and person. No headache. No neck pain. No syncope. No seizures. No dizziness. PSYCHIATRIC: Not anxious. No depression. No suicidal thoughts. No homicidal thoughts. SKIN: No rash. No lesions. No wounds. ENDOCRINE: No unexplained weight loss. No weight gain. HEMATOLOGIC/LYMPHATIC: No anemia. No purpura. No petechiae. No prolonged or excessive bleeding. No palpable lymph nodes. PHYSICAL EXAMINATION: GENERAL: The patient is awake, alert and oriented, lying in bed in no distress. VITAL SIGNS: Temperature 97.3 F, Pulse 73, Respiratory Rate 20, BP 107/66, Pulse Ox 93% HEENT: Head normocephalic, atraumatic. Eyes: Extraocular muscles are intact. Pupils are equal, round and reactive to light and accommodation. Ears: No lesions. Nose appeared normal. Throat: No exudate or erythema. NECK: Supple. No JVD, no carotid bruit. No lymphadenopathy or thyromegaly. LUNGS: Diminished breath sounds. Clear to auscultation. Percussion note normal. Chest symmetrical. HEART: S1, S2, no S3. No murmurs. No cyanosis or clubbing. No ascites. Pulses: Dorsalis pedis and posterior tibial pulses +1 to +2 both sides. ABDOMEN: Soft. Non-tender. Bowel sounds active. No CVA tenderness. No mass felt. EXTREMITIES: Generalized leg edema. Full range of motion of all extremities, equal. NEUROLOGIC: No focal deficit. Cranial nerves II through XII are grossly intact. No headache, no double vision or headache. SKIN: Not dry. Intact. Turgor-normal. LYMPHATIC: No palpable lymph nodes/no lymphedema. MUSCULOSKELETAL: Normal joints with no swelling. Muscle tone is normal. LAB REVIEW: 05/19/17 04:45 05/19/17 04:45 05/19/17 04:45: Sodium 135 L, Potassium 3.8, Chloride 92 L, Carbon Dioxide 30, Anion Gap 16.8, BUN 50 H, Creatinine 1.35 H, Estimated GFR (MDRD) 51.00, BUN/ Creatinine Ratio 37.03, Glucose 314 H D, Calcium 8.8, Total Bilirubin 0.5, AST 18, ALT 22, Alkaline Phosphatase 60, Total Protein 6.9, Albumin 3.2 L, Globulin 3.7, Albumin/Globulin Ratio 0.86 05/19/17 04:45: WBC 18.70 H D, RBC 4.16 L, Hgb 13.4 L, Hct 39.8 L, MCV 95.7 H, MCH 32.2 H, MCHC 33.7, RDW Coeff of Leonardo 12.7, Plt Count 256 D, Immature Gran % (Auto) 0.5, Neut % (Auto) 88.0, Lymph % (Auto) 7.8 L, [place] % (Auto) 3.6, Eos % ( Auto) 0.0, Baso % (Auto) 0.1, Immature Gran # (Auto) 0.1, Neut # (Auto) 16.5 H, Lymph # (Auto) 1.5, [place] # (Auto) 0.7, Eos # (Auto) 0.0, Baso # (Auto) 0.0 ASSESSMENT: 1. Acute bronchitis 2. COPD exacerbation 3. Chronic kidney disease 4. Leg edema 5. History of CHF PLAN: 1. Start Lasix 40 mg p.o. tomorrow 2. D/C IV Lasix tomorrow 3. Encouraged to be up and about Plan and coordination of the patient's care discussed in the presence of Jr. Java Developer and nurse. CONDITION: Stable SCRIBED BY: JOCELINE VINSON Composite Assembler scribed while in presence of service performed by Dr. Fuentes/Lizette Latham APRN on 05/19/17 ([id number])
[2017-05-19] MEDS ORDERED: ATIVAN PO SCH (21:00)
[2017-05-19] MEDS: PRAVACHOL PO SCH (22:12)
[2017-05-20] MEDS: DUONEB NEB SCH ×3 (04:53→14:52)
[2017-05-20] MEDS ORDERED: LASIX TAB PO SCH (06:30)
[2017-05-20] MEDS: SOLU-MEDROL 125 MG IVP SCH ×2 (06:52→14:16)
[2017-05-20] MEDS: SYNTHROID PO SCH (06:52)
--- NOTE | 2017-05-20 07:44 | PN ---
DATE OF SERVICE: 05/18/17 SUBJECTIVE: 82 year old white male hospitalized with shortness of breath, cough, congestion , asthmatic bronchitis. The patient had no real evidence of CHF with BNP of less than 10. His leg edema is much less and his breathing problems have practically subsided. The sugar is 242 from steroids. Condition is improving. The patient is noncompliant and strongly advised to take his NEBS treatment and take his medications on regular basis with breathing exercises. His BMI is 36 and advised to lose at least 30 pounds. Weight loss diet was discussed. The patient was seen and examined with Nurse Practitioner. TIME SPENT: More than 30 minutes. Plan and coordination of the patient's care discussed in the presence of nurse. KENTRELL
--- NOTE | 2017-05-20 08:52 | HP ---
DATE OF SERVICE: 05/17/17 REASON FOR HOSPITALIZATION: Shortness of air HISTORY OF PRESENT ILLNESS: 82 year old white male was brought to the emergency room with increasing shortness of breath of three days duration. The patient is noncompliant and not taking his medication regularly. He has multiple medical problems. The patient also has cough with congestion with mild yellowish sputum production. The patient says that he thought that he has developing pneumonia so he decided to come to the emergency room. PAST MEDICAL HISTORY/PAST SURGICAL HISTORY: History of Obesity with BMI of 36 Chronic lung disease Hypertension Congestive heart failure Hypothyroidism Noncompliance Glaucoma surgery History of upper respiratory tract infections REVIEW OF SYSTEMS: CONSTITUTIONAL: No night sweats. Fatigue. No fever or chills. Weakness. HEENT: Eyes: No visual changes. No eye pain. No eye discharge. ENT: No runny nose. No epistaxis. No sinus pain. No sore throat. No odynophagia. No ear pain. No congestion. RESPIRATORY: Cough, mild yellowish sputum production. Congestion. No hemoptysis. No shortness of breath. CARDIOVASCULAR: No angina symptoms. No CHF symptoms. No atypical chest pain for CAD. No palpitations. No orthopnea. Pleuritic type of pain, right sided with cough. GASTROINTESTINAL: No abdominal pain. No nausea or vomiting. No diarrhea or constipation. No hematemesis. No hematochezia. Last couple of days, poor appetite. GENITOURINARY: No urgency. No frequency. No dysuria. No hematuria. No obstructive symptoms. No discharge. No pain. No significant abnormal bleeding. MUSCULOSKELETAL: No musculoskeletal pain. No joint swelling. No arthritis. Generalized aches and pains. NEUROLOGICAL: No headache. No neck pain. No syncope. No seizures. No dizziness. PSYCHIATRIC: Not anxious. No depression. No suicidal thoughts. No homicidal thoughts. SKIN: No rash. No lesions. No wounds. ENDOCRINE: No unexplained weight loss. No weight gain. HEMATOLOGIC/LYMPHATIC: No anemia. No purpura. No petechiae. No prolonged or excessive bleeding. No palpable lymph nodes. PERSONAL/FAMILY/SOCIAL HISTORY: The patient is nonsmoker and lives with the help of friend. No alcohol abuse. Tries to do all activity of daily living. He doesn't take his medication on regular basis. No history of fall. No Depression. MEDICATIONS: Lumigan Eye drops Carvedilol 3.125 twice a day Lasix 40mg PO daily Levothyroxine 100mcg PO daily Pravachol 40mg PO daily Flomax 0.4mg PO daily Diclofenac 1 drop OP three times a day Zaroxolyn 2.5mg three to four days a week Albuterol inhaler PRN Albuterol NEBS PRN four times a day Zestril 2.5mg twice a day ALLERGIES: No known allergies PHYSICAL EXAMINATION: GENERAL: The patient is oriented to time, place and person. VITAL SIGNS: Temperature 98.4, pulse 88, respiratory rate 20, blood pressure 126/68 and pulse ox 95% with 2 liters. HEENT: Head normocephalic, atraumatic. Eyes: Extraocular muscles are intact. Pupils are equal, round and reactive to light and accommodation. Ears: No lesions. Nose appeared normal. Throat: No exudate or erythema. NECK: Supple. No JVP, no carotid bruit. No lymphadenopathy or thyromegaly. LUNGS: Decreased breath sounds with mild wheeze but good air entry. Percussion note normal. Chest symmetrical. HEART: S1, S2, no S3. No murmurs. No cyanosis or clubbing. No ascites. Pulses: Dorsalis pedis and posterior tibial pulses +1 to +2 both sides. PMI not palpably on auscultation. ABDOMEN: Soft. Nontender. Bowel sounds active. No CVA tenderness. No mass felt. EXTREMITIES: Pitting +4 edema bilaterally. Full range of motion of all extremities, equal. NEUROLOGIC: No focal deficit. Cranial nerves II through XII are grossly intact. No headache, no double vision or headache. SKIN: Not dry. Intact. Turgor - normal. LYMPHATIC: No palpable lymph nodes/no lymphedema. MUSCULOSKELETAL: Normal joints with no swelling. Muscle tone is normal. LABS: Chest x-ray no acute disease. BNP less than 10. Estimated GFR 60cc per minute. Hgb 14, hct 41, WBC 10,200 normal differential. creatinine 1.1, BUN 26, potassium 4. ASSESSMENT: 1. Acute bronchitis with acute exacerbation of COPD 2. Massive leg edema 3. History of hypertension 4. History of CHF 5. Dyslipidemia 6. Hypothyroidism 7. Obesity PLAN: 1. IV Lasix 20mg 2. NEBS treatment four times a day 3. DUO NEBS 4. IV Solu-Cortef 125mg Q 8 hours 5. Zithromax 500mg PO daily for 3 days 6. Rocephin 1 gram Q 24 hours 7. Telemetry 8. EKG 9. Elevate the legs 10.Patient education carried out about breathing treatments and about need to keep his legs up and cut down on salt intake and take his medication on regular basis. The patient depends on his friend who also has multiple medical problems and multiple hospitalizations. CONDITION: Stable PROGNOSIS: Guarded. TIME SPENT: More than 70 minutes. MTDD
[2017-05-20] MEDS: SYMBICORT 160-4.5 MCG INHALER IH SCH (09:15)
[2017-05-20] MEDS: ROCEPHIN 1 GM in SODIUM CHLORIDE 50 ML IV SCH (09:15)
[2017-05-20] MEDS ORDERED: ZITHROMAX PO STA ×2 (09:16→10:54)
[2017-05-20] MEDS: LUMIGAN OP SCH (09:16)
[2017-05-20] MEDS: FLOMAX PO SCH (09:17)
[2017-05-20] MEDS: ZESTRIL PO SCH (09:17)
[2017-05-20] MEDS: BRINZOLAMIDE OP SCH (09:17)
[2017-05-20] MEDS: COREG PO SCH (09:17)
[2017-05-20] MEDS: VOLTAREN 0.1% OPTH SOL OP SCH ×2 (09:18→16:14)
[2017-05-20] MEDS: ZITHROMAX PO SCH (09:18)
[2017-05-20] MEDS: LOVENOX SUBCUT SCH (09:19)
[2017-05-20 10:22] VITALS: BP 107/61; TEMP 97.5
--- NOTE | 2017-05-20 13:15 | PCM.PROG ---
Attending Provider: ATTENDING PROVIDER: Dr. MACKENZIE FUENTES DATE OF SERVICE: 05/20/17 SUBJECTIVE: This 82 year old WHITE/ M was hospitalized 05/17/17 with acute bronchitis exacerbation. Condition improved remarkably. He is feeling better. Wheezing is not audible anymore. REVIEW OF SYSTEMS: CONSTITUTIONAL: No night sweats. No fatigue, malaise, lethargy. No fever or chills. HEENT: Eyes: No visual changes. No eye pain. No eye discharge. ENT: No runny nose. No epistaxis. No sinus pain. No odynophagia. No congestion. RESPIRATORY: No cough, no congestion. No hemoptysis. No shortness of breath. CARDIOVASCULAR: No angina symptoms. No CHF symptoms. No atypical chest pain for CAD. No palpitations. No orthopnea.. GASTROINTESTINAL: No abdominal pain. No nausea or vomiting. No diarrhea or constipation. No hematemesis. No hematochezia. GENITOURINARY: No urgency. No frequency. No dysuria. No hematuria. No obstructive symptoms. No discharge. No pain. No significant abnormal bleeding. MUSCULOSKELETAL: No musculoskeletal pain; no joint swelling. NEUROLOGICAL: Awake, alert, oriented to time, place and person. No headache. No neck pain. No syncope. No seizures. No dizziness. PSYCHIATRIC: Not anxious. No depression. No suicidal thoughts. No homicidal thoughts. SKIN: No rash. No lesions. No wounds. ENDOCRINE: No unexplained weight loss. No weight gain. HEMATOLOGIC/LYMPHATIC: No anemia. No purpura. No petechiae. No prolonged or excessive bleeding. No palpable lymph nodes. PHYSICAL EXAMINATION: GENERAL: The patient is awake, alert and oriented, lying in bed in no distress. VITAL SIGNS: Temperature 97.3 F, Pulse 78, Respiratory Rate 18, BP 99/50, Pulse Ox 95% HEENT: Head normocephalic, atraumatic. Eyes: Extraocular muscles are intact. Pupils are equal, round and reactive to light and accommodation. Ears: No lesions. Nose appeared normal. Throat: No exudate or erythema. NECK: Supple. No JVD, no carotid bruit. No lymphadenopathy or thyromegaly. LUNGS: Decreased breath sounds but good air entry. Clear to auscultation. Percussion note normal. Chest symmetrical. HEART: S1, S2, no S3. No murmurs. No cyanosis or clubbing. No ascites. Pulses: Dorsalis pedis and posterior tibial pulses +1 to +2 both sides. ABDOMEN: Soft. Non-tender. Bowel sounds active. No CVA tenderness. No mass felt. EXTREMITIES: No edema. Full range of motion of all extremities, equal. NEUROLOGIC: No focal deficit. Cranial nerves II through XII are grossly intact. No headache, no double vision or headache. SKIN: Warm and dry. Intact. Turgor-normal. LYMPHATIC: No palpable lymph nodes/no lymphedema. MUSCULOSKELETAL: Normal joints with no swelling. Muscle tone is normal. LAB REVIEW: 05/20/17 05:10 05/20/17 05:10 05/20/17 05:10: Sodium 137, Potassium 4.0, Chloride 95 L, Carbon Dioxide 31, Anion Gap 15.0, BUN 41 H, Creatinine 1.24 H, Estimated GFR (MDRD) 56.00, BUN/ Creatinine Ratio 33.06, Glucose 356 H, Calcium 8.8, Total Bilirubin 0.4, AST 19 , ALT 26, Alkaline Phosphatase 69, Total Protein 6.8, Albumin 3.2 L, Globulin 3.6, Albumin/Globulin Ratio 0.89 05/20/17 05:10: WBC 19.06 H, RBC 4.32 L, Hgb 14.1, Hct 41.6 L, MCV 96.3 H, MCH 32.6 H, MCHC 33.9, RDW Coeff of Leonardo 12.7, Plt Count 265, Immature Gran % (Auto) 0.6, Neut % (Auto) 87.8, Lymph % (Auto) 8.3 L, [place] % (Auto) 3.1, Eos % (Auto) 0.0, Baso % (Auto) 0.2, Immature Gran # (Auto) 0.1, Neut # (Auto) 16.7 H, Lymph # (Auto) 1.6, [place] # (Auto) 0.6, Eos # (Auto) 0.0, Baso # (Auto) 0.0 ASSESSMENT: Please see below. 1. Acute exacerbation of COPD, under control 2. Leg edema much improved 3. Other conditions are stable PLAN: 1. Discharge home 2. Blood sugar is high because of steroids 3. Will discharge him home with Keflex 500 mg b.i.d. times 5 days 4. Prednisone 10 mg twice a day for 5 days 5. Strongly advised to lose weight. 6. Keep legs elevated. 7. Advised to take medications on a regular basis. Plan and coordination of the patient's care discussed in the presence of Diamond [employer]iller and nurse. CONDITION: STABLE SCRIBED BY: JOCELINE VINSON Cytology Manager scribed while in presence of service performed by Dr. MACKENZIE FUENTES on 05/20/17 ([id number])
--- NOTE | 2017-05-20 13:28 | DS ---
DATE OF SERVICE: 05/20/17 FINAL DIAGNOSIS: 1. COPD EXACERBATION 2. CHRONIC LUNG DISEASE 3. HYPOTHYROID 4. HYPERTENSION 5. DYSLIPIDEMIA 6. CHF 7. CARDIOMEGALY 8. BPH 9. DEGENERATIVE DISC DISEASE 10. OSTEOARTHRITIS 11. OBESITY, BMI 36 Discharge V/S: Temperature 97.5, pulse 100, respiratory 14, BP 107/61, pulse ox 90 DISCHARGE INSTRUCTIONS: 1. Continue to use oxygen at 2L/cannula 2. Continue to use nebulizer treatments at least three times a day 3. Elevate the legs above the level of the hips when sitting an when in bed 4. An appointment is scheduled with Dr. Ramirez/Lizette Latham APRN on 05/25/17 at 10:30 a.m. MEDICATIONS AT DISCHARGE: Albuterol every 8 hours PATRICIA Lumigan one drop OP daily PATRICIA Symbicort 160-4.5 mcg inhaler two puff IH b.i.d. PATRICIA Coreg 3.125 mg p.o. b.i.d. with meal PATRICIA Voltaren 0.1% Opth Unique one drop OP t.i.d. PATRICIA Lasix 40 mg p.o. q.d a.c. PATRICIA Synthroid 100 mcg p.o. q.d. a.c. PATRICIA Zestril 2.5 mg p.o. b.i.d. PATRICIA Azopt one drop OP b.i.d. PATRICIA Pravachol 40 mg p.o. bedtime PATRICIA Flomax 0.4 mg p.o. daily PATRICIA ProAir HFA two puffs IH q.6hr p.r.n. Zaroxolyn 2.5 mg p.o. MoWeFr p.r.n. leg swelling Keflex 500 mg p.o. b.i.d. for 5 days Prednisone 10 mg b.i.d. for 5 days NEW PRESCRIPTIONS: Keflex 500 mg b.i.d. for 5 days Prednisone 10 mg b.i.d. for 5 days DIET INSTRUCTIONS: Low salt as tolerated ACTIVITY: Gradually resume as tolerated SMOKING: N/A DISEASE SPECIFIC EDUCATION: Medications Appointment Strongly advised to keep legs elevated Steroid use and risk of GI irritation Diet - weight loss diet discussed. Strongly advised to lose weight, BMI 36. HOSPITAL COURSE: This is an 82-year-old White/ male hospitalized with acute exacerbation of COPD. Condition improved with IV Lasix, steroids, antibiotics, nebs treatment and leg elevation. The patient has been noncompliant taking medications and diet. At time of discharge, the patient is feeling better. No audible wheezing, good breath sounds. The patient is discharged on antibiotics, steroids and will follow on Thursday as an outpatient. The patient is strongly advised to lose weight; BMI 36, weight loss diet discussed. LABS: 05/20/17 05:10: Sodium 137, Potassium 4.0, Chloride 95 L, Carbon Dioxide 31, Anion Gap 15.0, BUN 41 H, Creatinine 1.24 H, Estimated GFR (MDRD) 56.00, BUN/ Creatinine Ratio 33.06, Glucose 356 H, Calcium 8.8, Total Bilirubin 0.4, AST 19 , ALT 26, Alkaline Phosphatase 69, Total Protein 6.8, Albumin 3.2 L, Globulin 3.6, Albumin/Globulin Ratio 0.89 05/20/17 05:10: WBC 19.06 H, RBC 4.32 L, Hgb 14.1, Hct 41.6 L, MCV 96.3 H, MCH 32.6 H, MCHC 33.9, RDW Coeff of Leonardo 12.7, Plt Count 265, Immature Gran % (Auto) 0.6, Neut % (Auto) 87.8, Lymph % (Auto) 8.3 L, [place] % (Auto) 3.1, Eos % (Auto) 0.0, Baso % (Auto) 0.2, Immature Gran # (Auto) 0.1, Neut # (Auto) 16.7 H, Lymph # (Auto) 1.6, [place] # (Auto) 0.6, Eos # (Auto) 0.0, Baso # (Auto) 0.0 CONDITION: Stable TIME SPENT: More than 60 minutes. MTDD
--- NOTE | 2017-05-20 13:30 | PN ---
CODING FOR BILLIN05/17/17 LEVEL 5 05/18/17 INTERMEDIATE 05/19/17 INTERMEDIATE 05/20/17 DISCHARGE MTDD
--- NOTE | 2017-05-20 15:45 | CM.DICTOOL ---
ADMISSION: 05/17/17 15:08 DISCHARGE: MAY 20, 2017 DATE OF SERVICE: 05/20/17 FINAL DIAGNOSIS COPD EXACERBATION CHRONIC LUNG DISEASE HYPOTHYROID HYPERTENSION DYSLIPIDEMIA CHF CARDIOMEGALY BPH DEGENERATIVE DISC DISEASE OSTEOARTHRITIS OBESITY, BMI 36 ECHOCARDIOGRAM: MAR, 2016 LVEF 58%, BORDERLINE LVH LAST VITALS Temp Pulse Resp BP Pulse Ox 97.5 F L 100 H 14 107/61 90 L 05/20/17 10:00 05/20/17 10:00 05/20/17 10:00 05/20/17 10:00 05/20/17 10:00 TAKE THESE MEDICATIONS Albuterol 1 vial NEB EVERY 8 HOURS [facility] Last Admin: 05/20/17 14:52 Dose: Not Given Bimatoprost (Lumigan) 1 drop OP DAILY [facility] Last Admin: 05/20/17 09:16 Dose: 1 drop Budesonide/Formoterol Fumarate (Symbicort 160-4.5 Mcg Inhaler) 2 puff IH BID [facility] Last Admin: 05/20/17 09:15 Dose: 2 puff Carvedilol (Coreg) 3.125 mg PO BIDWM [facility] Last Admin: 05/20/17 09:17 Dose: 3.125 mg Diclofenac Sodium (Voltaren 0.1% Opth Unique) 1 drop OP TID [facility] Last Admin: 05/20/17 09:18 Dose: Not Given Furosemide (Lasix Tab) 40 mg PO QDAC [facility] Last Admin: 05/20/17 06:52 Dose: 40 mg Levothyroxine Sodium (Synthroid) 100 mcg PO QDAC [facility] Last Admin: 05/20/17 06:52 Dose: 100 mcg Lisinopril (Zestril) 2.5 mg PO BID [facility] Last Admin: 05/20/17 09:17 Dose: 2.5 mg Non-Formulary Medication (Brinzolamide [Azopt]) 1 drop OP BID [facility] Last Admin: 05/20/17 09:17 Dose: 1 drop Pravastatin Sodium (Pravachol) 40 mg PO BEDTIME [facility] Last Admin: 05/19/17 22:12 Dose: 40 mg Tamsulosin HCl (Flomax) 0.4 mg PO DAILY [facility] Last Admin: 05/20/17 09:17 Dose: 0.4 mg Albuterol Sulfate (Proair HFA) 2 puffs IH q 6 hours prn Last Admin: Metolazone (Zaroxolyn) 2.5 mg PO MOWEFR PRN Leg Swelling Last Admin: Keflex 500 mg BID for 5 days Last Admin: Prednisone 10 mg BID for 5 days Last Admin: ALLERGIES No Known Allergies Allergy (Verified 02/02/17 11:58) MEDICATIONS DISCONTINUED none NEW PRESCRIPTIONS: Keflex 500 mg BID for 5 days Prednisone 10 mg BID for 5 days SMOKING: Not Applicable DISEASE SPECIFIC EDUCATION: MEDICATIONS APPOINTMENT ELEVATING LEGS STEROID USE AND RISK OF GI IRRITATION LAB REVIEW: 05/20/17 05:10 05/20/17 05:10 05/20/17 05:10: Sodium 137, Potassium 4.0, Chloride 95 L, Carbon Dioxide 31, Anion Gap 15.0, BUN 41 H, Creatinine 1.24 H, Estimated GFR (MDRD) 56.00, BUN/ Creatinine Ratio 33.06, Glucose 356 H, Calcium 8.8, Total Bilirubin 0.4, AST 19 , ALT 26, Alkaline Phosphatase 69, Total Protein 6.8, Albumin 3.2 L, Globulin 3.6, Albumin/Globulin Ratio 0.89 05/20/17 05:10: WBC 19.06 H, RBC 4.32 L, Hgb 14.1, Hct 41.6 L, MCV 96.3 H, MCH 32.6 H, MCHC 33.9, RDW Coeff of Leonardo 12.7, Plt Count 265, Immature Gran % (Auto) 0.6, Neut % (Auto) 87.8, Lymph % (Auto) 8.3 L, [place] % (Auto) 3.1, Eos % (Auto) 0.0, Baso % (Auto) 0.2, Immature Gran # (Auto) 0.1, Neut # (Auto) 16.7 H, Lymph # (Auto) 1.6, [place] # (Auto) 0.6, Eos # (Auto) 0.0, Baso # (Auto) 0.0 PLAN: DISCHARGE HOME DIET: LOW SALT TOLERATED ACTIVITY: GRADUALLY RESUME TOLERATED CONTINUE TO USE OXYGEN AT 2 LITERS PER CANNULA CONTINUE TO USE NEBULIZER TREATMENTS AT LEAST THREE TIMES A DAY ELEVATE LEGS ABOVE THE LEVEL OF THE HIPS WHEN SITTING AND WHEN IN BED AN APPOINTMENT IS SCHEDULED WITH DR. FUENTES/GEOFFREY ACUNA APRN ON April AT 10:30 AM MR. LANDRY IS ALERT AND ORIENTED X 3. HE IS INDEPENDENT WITH ACTIVITIES OF DAILY LIVING. HE UTILIZES OXYGEN PER NASAL CANNUAL AT 2 LITERS CONTINUOUSLY. HE HAS OXYGEN AND A NEBULIZER AVAILABLE AT HOME FOR HIS USE. MR. LANDRY IS AMBULATORY WITHOUT USE OF ASSISTIVE DEVICE AND IS ABLE TO TRANSFER FROM BED TO THE CHAIR AND TO THE BATHROOM WITHOUT ASSISTANCE. MEAL INTAKES ARE GOOD AT 100% . SKIN IS IN GOOD CONDITION AND FREE OF DECUBITUS ULCERS. THE LOWER EXTREMITIES CONTINUE TO HAVE EDEMA, BUT LESS TIGHT THAN ON ADMISSION. MACKENZIE FUENTES MD
--- NOTE | 2017-05-22 08:44 | PN ---
DATE OF SERVICE: 05/19/17 SUBJECTIVE: 82-year-old white male hospitalized with shortness of breath, cough and congestion which has improved remarkably. The patient's blood sugar is up because of steroids. Also the creatinine 1.3 with BUN of 50 which has gone up because of aggressive diuresis. The patient had 4+ pitting edema, now is 1+. Respiratory status has improved. TIME SPENT: More than 30 minutes. Plan and coordination of the patient's care discussed in the presence of nurse. KENTRELL
== END 2017-05-20 17:28 | disposition home or self-care (01) | DRG 192 ==
LOC: ED 13:15 → MEDSURG A 15:08
PROVIDERS: ADMIT Internal Medicine; ATTEND Internal Medicine
DX: J44.1 Chronic obstructive pulmonary disease with (acute) exacerbation (principal); J20.9 Acute bronchitis, unspecified; J44.0 Chronic obstructive pulmonary disease with (acute) lower respiratory infection; R06.02 Shortness of breath; R53.1 Weakness; R60.0 Localized edema; I10 Essential (primary) hypertension; I50.9 Heart failure, unspecified; N18.9 Chronic kidney disease, unspecified; I51.7 Cardiomegaly; E66.9 Obesity, unspecified; N40.0 Benign prostatic hyperplasia without lower urinary tract symptoms; E78.5 Hyperlipidemia, unspecified; E03.9 Hypothyroidism, unspecified; M19.90 Unspecified osteoarthritis, unspecified site; Z91.11 Patient's noncompliance with dietary regimen; Z91.14 Patient's other noncompliance with medication regimen; Z79.899 Other long term (current) drug therapy; Z68.36 Body mass index [BMI] 36.0-36.9, adult
CPT/HCPCS: 36415; 80053; 82550; 82803; 83605; 83880; 84145; 84484; 85025; 87040; 93005; 93010; 94640; 94761; 96365; 99284; 99285

== ENCOUNTER 2017-07-11 10:38 | Inpatient (IN) | payer OTHER ==
[2017-07-11] MEDS ORDERED: DUONEB NEB STA (10:52)
[2017-07-11] MEDS ORDERED: SOLU-MEDROL 40 MG IVP STA (10:52)
[2017-07-11] MEDS ORDERED: LASIX IVP STA (10:52)
--- NOTE | 2017-07-11 11:52 | CT ---
EXAM: CT chest without contrast HISTORY: Dyspnea COMPARISON: CT chest 02/02/2017 and multiple priors TECHNIQUE: Serial axial images of the chest were obtained from the lung apices to the upper abdomen without contrast. These were viewed in multiple planes. FINDINGS: The thyroid is normal. The visualized vessels are unremarkable without aneurysm or stenos is. The heart is normal in size without pericardial effusion. There are no pathologically enlarged mediastinal or hilar lymph nodes. There is no pneumothorax or pleural effusion. There is mild lower lobe airway thickening. There is minimal left basilar atelectasis. There is no abnormal ground-glass. The airways are patent. The soft tissues in the upper abdomen demonstrate a large low attenuation lesion in the liver measuri ng 6.1 x 7.0 cm consistent with hepatic cyst. Soft tissues are unremarkable. The osseous structures demonstrate mild degenerative disease. IMPRESSION: 1. No acute cardiopulmonary process. 2. Minimal lower lobe airway thickening may represent mild small airways inflammation. 3. Low attenuation lesion in the liver most consistent with a hepatic cyst.
--- NOTE | 2017-07-11 12:03 | ED.PDOC ---
General ED Provider: Dr. DAO TORRES-ER Chief Complaint: Respiratory Complaint Stated Complaint: i cant breathe Time Seen by Physician: 10:45 Mode of Arrival: Wheelchair Information Source: Patient, Family Exam Limitations: No limitations Primary Care Provider: MACKENZIE JERRY Nursing and Triage Documentation Reviewed and Agree: Yes Reviewed sepsis parameters & appropriate labs ordered?: Yes System Inflammatory Response Syndrome: Not Applicable Sepsis Protocol: For patient's 13 years and over: Temp is 96.8 and below OR 101 and greater Pulse >90 BPM Resp >20/minute Acutely Altered Mental Status Are patient's symptoms suggestive of a new infection, such as: -Pneumonia -Skin, Soft Tissue -Endocarditis -UTI -Bone, Joint Infection -Implantable Device -Acute Abdominal Infection -Wound Infection -Meningitis -Blood Stream Catheter Infection -Unknown Respiratory Complaint Exam - Shortness of Air Complaint/Exam Onset/Duration: 3 days Symptoms Are: Still present Timing: Constant Initial Severity: Mild Current Severity: Moderate Character: Reports: Dyspnea at rest Alleviating: Reports: Bronchodilators Associated Signs and Symptoms: Reports: Cough, Wheezing History of Healthcare-Acquired Pneumonia: No Pseudomonas Risk Factors: Reports: Chronic Lung Disease Tuberculosis Risk Factors: Reports: Chronic Resp. Faliure Home Oxygen Use: No Recent Stress Test: No Recent Echo/LV Function: No Respiratory Distress: Mild Stridor Present: No Tracheal Deviation: No Subcutaneous Emphysema: No Accessory Muscle Use: No Retractions: Not Present Diminished Breath Sounds: Yes Prolonged Expiratory Phase: No Unable to Speak Full Sentences: No Fatigue: Yes Leg Swelling: Yes Cynthia's Sign Present: No Grunting Respirations: No Kussmaul Respirations: No Differential Diagnoses: CHF, Pulmonary Edema, COPD Exacerbation Quality Indicator For Non-Traumatic Chest Pain/Syncope: EKG Performed Review of Systems - Review Of Systems Constitutional: Reports: No symptoms Eyes: Reports: No symptoms Ears, Nose, Mouth, Throat: Reports: Nose discharge Respiratory: Reports: Cough, Short of air Cardiac: Reports: No symptoms GI: Reports: No symptoms : Reports: No symptoms Musculoskeletal: Reports: No symptoms Skin: Reports: No symptoms Neurological: Reports: No symptoms Endocrine: Reports: No symptoms Hematologic/Lymphatic: Reports: No symptoms All Other Systems: Reviewed and Negative Past Medical History - Past Medical History Previously Healthy: Yes Endocrine: Reports: Hypothyroid, Dyslipidemia Cardiovascular: Reports: Hypertension, CHF Respiratory: Reports: COPD, Pneumonia Hematological: Reports: None Gastrointestinal: Reports: None Genitourinary: Reports: None Neuro/Psych: Reports: None Musculoskeletal: Reports: None Cancer: Reports: None Other Pertinent Past Medical History: tonsils, GLAUCOMA SURGERY - Surgical History General Surgical History: Reports: Tonsillectomy, Other (GLAUCOMA SURGERY) - Family History Family History: Reports: Unknown - Social History Smoking Status: Former smoker Hx Substance Use: No Alcohol Screening: None Lives: With family - Immunizations Influenza Vaccine within 12 Months: Yes (NOVEMBER) Pneumococcal Vaccine up to Date: Yes (ONE A LONG TIME AGO, ONE ONE OR TWO YEARS AGO) Physical Exam - Physical Exam Appearance: Well-appearing, No pain distress, Well-nourished Eyes: NATHAN, EOMI, Conjunctiva clear ENT: Ears normal, Nose normal, Oropharynx normal Neck: Supple Respiratory: Rhonchi, Wheezes Cardiovascular: RRR, Pulses normal, No rub, No murmur GI/: Soft, Nontender, No masses, Bowel sounds normal, No Organomegaly Musculoskeletal: Normal strength, ROM intact, No edema, No calf tenderness Skin: Warm, Dry, Normal color Neurological: Sensation intact, Motor intact, Reflexes intact, Cranial nerves intact, Alert, Oriented Psychiatric: Affect appropriate, Mood appropriate, Anxious Interpretation - Radiology Interpretation Radiology Interpretation By: Radiologist Radiology Results: Negative Exam Interpreted: CT Scan - EKG Interpretation Time of EKG #1: 12:03 Rate: Normal Rhythm: Sinus Ectopy: None [place]: NL ST Segment: Normal Interpretation: nsr Physician Notification - Case Discussed Physician Notified: dr jerry Time of Notification: 12:03 Critical Care Note - Critical Care Note Total Time (mins): 0 Course - Course Hematology/Chemistry: 07/11/17 11:05 07/11/17 11:05 Orders, Labs, Meds: Lab Review 07/11/17 07/11/17 07/11/17 10:51 11:05 11:05 WBC 8.43 RBC 4.07 L Hgb 13.2 L Hct 39.2 L MCV 96.3 H MCH 32.4 H MCHC 33.7 RDW Coeff of Leonardo 13.4 Plt Count 210 Immature Gran % (Auto) 0.2 Neut % (Auto) 61.2 Lymph % (Auto) 24.4 [place] % (Auto) 7.7 Eos % (Auto) 5.7 Baso % (Auto) 0.8 Immature Gran # (Auto) 0.0 Neut # (Auto) 5.2 Lymph # (Auto) 2.1 [place] # (Auto) 0.7 Eos # (Auto) 0.5 Baso # (Auto) 0.1 Puncture Site Lrad O2 Saturation 96.0 ABG pH 7.487 H ABG pCO2 41.3 ABG pO2 75.0 L ABG HCO3 31.3 H ABG Total CO2 33 H ABG Base Excess 8 H Alfonzo Test + FiO2 % 21.0 Sodium 136 Potassium 3.7 Chloride 96 L Carbon Dioxide 29 Anion Gap 14.7 BUN 20 H Creatinine 1.10 Estimated GFR (MDRD) 64.00 BUN/Creatinine Ratio 18.18 Glucose 195 H Calcium 8.9 Total Bilirubin 0.8 AST 19 ALT 22 Alkaline Phosphatase 51 L Total Creatine Kinase 85 Troponin I 0.0100 B-Natriuretic Peptide Total Protein 6.4 Albumin 3.3 L Globulin 3.1 Albumin/Globulin Ratio 1.06 TSH 3.296 07/11/17 11:05 WBC RBC Hgb Hct MCV MCH MCHC RDW Coeff of Leonardo Plt Count Immature Gran % (Auto) Neut % (Auto) Lymph % (Auto) [place] % (Auto) Eos % (Auto) Baso % (Auto) Immature Gran # (Auto) Neut # (Auto) Lymph # (Auto) [place] # (Auto) Eos # (Auto) Baso # (Auto) Puncture Site O2 Saturation ABG pH ABG pCO2 ABG pO2 ABG HCO3 ABG Total CO2 ABG Base Excess Alfonzo Test FiO2 % Sodium Potassium Chloride Carbon Dioxide Anion Gap BUN Creatinine Estimated GFR (MDRD) BUN/Creatinine Ratio Glucose Calcium Total Bilirubin AST ALT Alkaline Phosphatase Total Creatine Kinase Troponin I B-Natriuretic Peptide < 10 Total Protein Albumin Globulin Albumin/Globulin Ratio TSH Orders Category Date Time Status ABG DRAW REQUEST Stat CARDIO 07/11/17 10:51 Completed EKG-(ED ONLY) Stat CARDIO 07/11/17 10:51 Completed NEBULIZER TREATMENT Stat CARDIO 07/11/17 10:52 Completed Legal Specialist [ED ASSISTANT SALES MANAGER APPLIED] .ONCE EMERGENCY 07/11/17 10:53 Active IV [ED IV/MEDIPORT/POWERPORT] .ONCE EMERGENCY 07/11/17 10:52 Active ABG Stat LAB 07/11/17 10:51 Completed BNP [B-TYPE NATRIURETIC PEPTIDE] Stat LAB 07/11/17 11:05 Completed CBC W/ AUTO DIFF Stat LAB 07/11/17 11:05 Completed COMPREHENSIVE METABOLIC PANEL Stat LAB 07/11/17 11:05 Completed CREATINE KINASE Stat LAB 07/11/17 11:05 Completed THYROID STIMULATING HORMONE Stat LAB 07/11/17 11:05 Completed TROPONIN I Stat LAB 07/11/17 11:05 Completed 0.9 % Sodium Chloride [Saline Flush] MEDS 07/11/17 10:52 Active 1 syr IVF PRN PRN Furosemide [Lasix] MEDS 07/11/17 10:52 Discontinued 40 mg IVP ONCE STA Ipratropium/Albuterol Neb [Duoneb] MEDS 07/11/17 10:52 Discontinued 1 vial NEB ONCE STA Methylprednisolone Sod Succ/Pf [Solu-Medrol 40 mg] MEDS 07/11/17 10:52 Discontinued 40 mg IVP ONCE STA CT CHEST W/O CONTRAST Stat RADS 07/11/17 10:53 Completed Medications Generic Name Dose Route Start Last Admin Trade Name Freq PRN Reason Stop Dose Admin Sodium Chloride 1 syr 07/11/17 10:52 07/11/17 11:16 Saline Flush IVF 1 syr PRN PRN Administration To flush IV Discontinued Medications Generic Name Dose Route Start Last Admin Trade Name Freq PRN Reason Stop Dose Admin Albuterol/Ipratropium 1 vial 07/11/17 10:52 07/11/17 11:16 Duoneb NEB 07/11/17 10:53 1 vial ONCE STA Administration Furosemide 40 mg 07/11/17 10:52 07/11/17 11:15 Lasix IVP 07/11/17 10:53 40 mg ONCE STA Administration Methylprednisolone Sodium Succinate 40 mg 07/11/17 10:52 07/11/17 11:14 Solu-Medrol 40 Mg IVP 07/11/17 10:53 40 mg ONCE STA Administration Vital Signs: Temp Pulse Resp BP Pulse Ox 07/11/17 10:39 97.2 F L 73 28 H 112/73 93 L Departure - Departure Time of Disposition: 12:03 Disposition: ADMITTED INPATIENT Discharge Problem: COPD exacerbation Instructions: COPD (Chronic Obstructive Pulmonary Disease) (ED) Condition: Fair Pt referred to PMD for follow-up: Yes IPMP verified?: No Allergies/Adverse Reactions: Allergies No Known Allergies Allergy (Verified 02/02/17 11:58) Home Medications: Ambulatory Orders Carvedilol [Coreg] 3.125 mg PO BIDWM 03/14/16 Pravastatin Sodium [Pravachol] 40 mg PO BEDTIME 03/14/16 Tamsulosin HCl [Flomax] 0.4 mg PO BEDTIME 03/14/16 Metolazone [Zaroxolyn] 2.5 mg PO MOWEFR PRN #1 tablet 02/06/17 Lisinopril [Zestril] 2.5 mg PO BID 05/17/17 Furosemide [Lasix] 40 mg PO DAILY 07/11/17 Ipratropium/Albuterol Sulfate [Iprat-Albut 0.5-3(2.5) mg/3 ml] 3 ml IH Q8H 07/11 Levothyroxine Sodium 100 mcg PO DAILY 07/11/17 Disposition Discussed With: Patient, Family
[2017-07-11] MEDS ORDERED: TYLENOL PO PRN (12:05)
[2017-07-11] MEDS ORDERED: ZAROXOLYN PO PRN (12:07)
[2017-07-11 13:16] VITALS: BMI 33.9
[2017-07-11] MEDS: SOLU-MEDROL 40 MG IVP SCH ×2 (14:01→16:53)
[2017-07-11] MEDS ORDERED: ROCEPHIN ONE (14:07)
[2017-07-11] MEDS: ROCEPHIN 1 GM in SODIUM CHLORIDE 50 ML IV SCH (14:17)
[2017-07-11] MEDS ORDERED: SODIUM CHLORIDE 50 ML IV ONE (14:17)
[2017-07-11] MEDS: SYMBICORT 160-4.5 MCG INHALER IH SCH ×2 (14:17→20:31)
[2017-07-11] MEDS ORDERED: SOLU-MEDROL 40 MG ONE (16:42)
[2017-07-11] MEDS: COREG PO SCH (16:52)
[2017-07-11] MEDS: SOLU-MEDROL 125 MG IVP SCH ×2 (16:58→21:28)
[2017-07-11] MEDS: DUONEB NEB SCH ×2 (17:05→23:29)
[2017-07-11] MEDS: PRAVACHOL PO SCH (20:30)
[2017-07-11] MEDS: FLOMAX PO SCH (20:30)
[2017-07-11] MEDS: ZESTRIL PO SCH (20:30)
[2017-07-12] MEDS: DUONEB NEB SCH ×4 (05:35→23:30)
[2017-07-12] MEDS: SYNTHROID PO SCH (08:39)
[2017-07-12] MEDS: ROCEPHIN 1 GM in SODIUM CHLORIDE 50 ML IV SCH (08:39)
[2017-07-12] MEDS: LOVENOX SUBCUT SCH (08:39)
[2017-07-12] MEDS: COREG PO SCH ×2 (08:39→17:41)
[2017-07-12] MEDS: SYMBICORT 160-4.5 MCG INHALER IH SCH ×2 (08:39→20:59)
[2017-07-12] MEDS: ZESTRIL PO SCH ×2 (08:40→21:00)
[2017-07-12] MEDS: LASIX TAB PO SCH (08:40)
[2017-07-12] MEDS ORDERED: LASIX TAB PO SCH (09:00)
[2017-07-12] MEDS: SOLU-MEDROL 125 MG IVP SCH ×4 (09:29→20:58)
[2017-07-12] MEDS: PRAVACHOL PO SCH (21:00)
[2017-07-12] MEDS: FLOMAX PO SCH (21:00)
[2017-07-13] MEDS: DUONEB NEB SCH ×4 (04:47→23:30)
[2017-07-13] MEDS: LASIX TAB PO SCH (06:14)
[2017-07-13] MEDS: SYNTHROID PO SCH (06:15)
[2017-07-13] MEDS: COREG PO SCH ×2 (08:58→17:30)
[2017-07-13] MEDS: ZESTRIL PO SCH ×2 (08:58→21:57)
[2017-07-13] MEDS: SYMBICORT 160-4.5 MCG INHALER IH SCH ×2 (08:59→21:57)
[2017-07-13] MEDS: ROCEPHIN 1 GM in SODIUM CHLORIDE 50 ML IV SCH (09:00)
--- NOTE | 2017-07-13 09:31 | PCM.PROG ---
Attending Provider: ATTENDING PROVIDER: Dr. MACKENZIE FUENTES This patient is seen with Lizette Latham, Nurse Practitioner. DATE OF SERVICE: 07/13/17 SUBJECTIVE: This 82 year old WHITE/ M was hospitalized 07/11/17. The patient is lying in bed, alert. The patient is resting comfortably, still with leg edema. Shortness of breath improved. REVIEW OF SYSTEMS: CONSTITUTIONAL: No night sweats. No fatigue, malaise, lethargy. No fever or chills. HEENT: Eyes: No visual changes. No eye pain. No eye discharge. ENT: No runny nose. No epistaxis. No sinus pain. No odynophagia. No congestion. RESPIRATORY: Cough. No congestion. No hemoptysis. Shortness of breath improved. CARDIOVASCULAR: No angina symptoms. No CHF symptoms. No atypical chest pain for CAD. No palpitations. No orthopnea.. GASTROINTESTINAL: No abdominal pain. No nausea or vomiting. No diarrhea or constipation. No hematemesis. No hematochezia. GENITOURINARY: No urgency. No frequency. No dysuria. No hematuria. No obstructive symptoms. No discharge. No pain. No significant abnormal bleeding. MUSCULOSKELETAL: Leg edema. No musculoskeletal pain. NEUROLOGICAL: Awake, alert, oriented to time, place and person. No headache. No neck pain. No syncope. No seizures. No dizziness. PSYCHIATRIC: Not anxious. No depression. No suicidal thoughts. No homicidal thoughts. SKIN: No rash. No lesions. No wounds. ENDOCRINE: No unexplained weight loss. No weight gain. HEMATOLOGIC/LYMPHATIC: No anemia. No purpura. No petechiae. No prolonged or excessive bleeding. No palpable lymph nodes. PHYSICAL EXAMINATION: GENERAL: The patient is awake, alert and oriented, lying in bed in no distress. VITAL SIGNS: Temperature 97.4 F, Pulse 74, Respiratory Rate 20, BP 116/77, Pulse Ox 97% HEENT: Head normocephalic, atraumatic. Eyes: Extraocular muscles are intact. Pupils are equal, round and reactive to light and accommodation. Ears: No lesions. Nose appeared normal. Throat: No exudate or erythema. NECK: Supple. No JVD, no carotid bruit. No lymphadenopathy or thyromegaly. LUNGS: Diminished breath sounds bilaterally. Clear to auscultation. Percussion note normal. Chest symmetrical. HEART: S1, S2, no S3. No murmurs. No cyanosis or clubbing. No ascites. Pulses: Dorsalis pedis and posterior tibial pulses +1 to +2 both sides. ABDOMEN: Soft. Non-tender. Bowel sounds active. No CVA tenderness. No mass felt. EXTREMITIES: +1 to +2 edema lower extremities. Full range of motion of all extremities, equal. NEUROLOGIC: No focal deficit. Cranial nerves II through XII are grossly intact. No headache, no double vision or headache. SKIN: Not dry. Intact. Turgor-normal. LYMPHATIC: No palpable lymph nodes/no lymphedema. MUSCULOSKELETAL: Normal joints with no swelling. Muscle tone is normal. LAB REVIEW: 07/13/17 04:35 07/13/17 04:35 07/13/17 04:35: Sodium 136, Potassium 4.0, Chloride 95 L, Carbon Dioxide 30, Anion Gap 15.0, BUN 34 H, Creatinine 1.31 H, Estimated GFR (MDRD) 53.00, BUN/ Creatinine Ratio 25.95, Glucose 335 H, Calcium 8.9, Total Bilirubin 0.5, AST 15 , ALT 22, Alkaline Phosphatase 48 L, Total Protein 6.2, Albumin 3.2 L, Globulin 3.0, Albumin/Globulin Ratio 1.07 07/13/17 04:35: WBC 17.07 H D, RBC 3.97 L, Hgb 13.0 L, Hct 38.0 L, MCV 95.7 H, MCH 32.7 H, MCHC 34.2, RDW Coeff of Leonardo 13.2, Plt Count 232, Immature Gran % ( Auto) 0.8, Neut % (Auto) 87.9, Lymph % (Auto) 8.0 L, Stephens % (Auto) 3.2, Eos % ( Auto) 0.0, Baso % (Auto) 0.1, Immature Gran # (Auto) 0.1, Neut # (Auto) 15.0 H, Lymph # (Auto) 1.4, Stephens # (Auto) 0.5, Eos # (Auto) 0.0, Baso # (Auto) 0.0 ASSESSMENT: 1. COPD EXACERBATION 2. LEG EDEMA 3. CHRONIC KIDNEY DISEASE PLAN: 1. Zaroxolyn 2.5 mg today 2. Discontinue Solu-Medrol 3. Prednisone 20 mg daily Plan and coordination of the patient's care discussed in the presence of Cloud Subject Matter Expert and nurse. CONDITION: Stable SCRIBED BY: JOCELINE VINSON, Marksmanship Instructor scribed while in presence of service performed by Dr. Fuentes/Lizette Latham APRN on 07/13/17 ([id number])
[2017-07-13] MEDS: LOVENOX SUBCUT SCH (10:09)
--- NOTE | 2017-07-13 11:28 | RS.OTINEVL ---
Subjective - Patient information Date of Evaluation: 07/13/17 Date of Arrival on Unit: 07/11/17 Admitted From:: Emergency Dept Usual Living Arrangement: With Others Living Arrangement Comments: Pt has been staying with his lady friend at her home because he is afraid she will fall. Pt reports he has glaucoma and is not able to drive much. He reports he is not able to tell if his feet are on the pedals or not when he is in the [employer] drive thru. Pt reports he had surgery to the left eye 06/17 last month and he can see some better. He can see black and white. Medical History: Hypertension, CVA/TIA, COPD, Diabetes, CHF Medical History Comments:: Pt has COPD, SOB, HTN, Glaucoma, Tonsillectomy, Kidney stones, UTi, Oxygen, Peripheral neuropathy, Subjective Information/ Patient Comments:: "That shoulder hurts some." "I don't use a walker now." "I sent the oxygen tank back." - Level of function Prior to this admission, the patient could do the following:: Independent Selfcare Abilities prior to this admission: Pt reports he is not using anything to ambulate with. Pt is not always safe. Pt continues to drive even though he knows he should not. Pt has Left eye low vision. Pt does not wear his oxygen when he should. Pt appears to be feeling down because of the problems he has as he is aging. Current Level of Function: Partially Dependent Current Equipment Used at Home: nebulizer, inhalers Pain Assessment - Pain Pain Score: 3 Pain Location Body Site: Shoulder Pain Aggravating Factors: ADL's Pain Alleviating Factors: Position Change, Sitting Interventions - Objective Patient Orientation: Person, Place, Time, Situation Current Interventions: IV's, Oxygen, Telemetry Observation: Pt has edema of bilateral ankles, SOB, decreased activity tolerance , Pt rarely makes eye contact. Interventions - ROM Right Upper Extremity AROM: WFL's Left Upper Extremity AROM: WFL's - Strength Right Upper Extremity Strength: Mild Weakness Left Upper Extremity Strength: Mild Weakness - Sensation Right Upper Extremity Sensation: Intact/Normal Left Upper Extremity Sensation: Intact/Normal Balance - Sitting Balance Static Sitting Balance: Fair Dynamic Sitting Balance: Fair - Standing Balance Static Standing Balance: Fair Dynamic Standing Balance: Fair ADL Skills - Self Feeding Self Feeding: Independent - Grooming Grooming: CGA - Bathing Bathing UE: Independent Bathing LE: Max Assist - Dressing Dressing UE: Independent Dressing LE: Mod Assist - Toilet Management Toileting Management: CGA Functional Mobility - Bed Mobility Rolling R/L: Independent Scooting: Independent Supine to Sit: Min Assist Sit to Supine: Min Assist - Transfers Sit to Stand: CGA Stand to Sit: [facility] Stand Pivot Transfers: CGA - Ambulation Weight Bearing Status: FWB Assistive Device Used: No Assistive Device Assistance needed with Ambulation: Min Assist - Safety Awareness Safety Awareness: Poor BOBY INDEX SCORE: . Additional Treatment Performed - Additional units charged ADL: 15 - Time with patient Total treatment time: 44 Activities Do you enjoy playing games?: No Would you be interested in leaving your room for activities?: No Would you enjoy group activities?: No Do you have difficulty with your vision?: Yes Patient Interests:: Visiting/Socializing (Pt has difficulty seeing people but he likes to communicate.) Patient Education Teaching Recipient: Patient Teaching Methods: Discussion Assessment Problem List:: Decreased level of function, Requires training/education, Decreased safety/Risk of falls, Weakness Rehab Potential: Good Further Therapy Indicated?: Yes Evaluation Complexity: HISTORY: Medium, EXAM OF BODY SYSTEMS: Medium, CLINICAL DECISION MAKING: Medium Short Term Goals - Goals GOAL 1: Pt to tolerated sink level ADLS with CGA. Goal to be met by: 07/24/17 GOAL 2: Pt to increase activity tolerace to 10 minutes. Goal to be met by: 07/17/17 GOAL 3: Pt to increase BUE strength to 4+/5. Goal to be met by: 07/17/17 Remote Ruby On Rails Developer Goals GOAL 1: Pt to tolerated sink level ADLS (I). Goal to be met by: 02/13/17 Progress towards goal: Not Met GOAL 2: Pt to increase activity tolerace to 15 minutes. Goal to be met by: 02/13/17 Progress towards goal: Not Met GOAL 3: Pt to increase BUE strength to 5/5. Goal to be met by: 02/13/17 Progress towards goal: Not Met Plan Plan of Care: Therapeutic EX, Neuromuscular Re-Educ, Therapeutic Activity, Self- Care/Home Management Frequency of Treatment: 1-2 X day, as tolerated Duration of Treatment: 1 Week Anticipated Discharge Destination: Home Treatment Diagnosis (ICD 10 Codes): M62.81 muscle weakness, Z74.0 Reduced mobility, Z91.81 At risk for falls Has the Physician been added for Co-signature?: Yes
[2017-07-13] MEDS: FLOMAX PO SCH (21:58)
[2017-07-13] MEDS: PRAVACHOL PO SCH (21:58)
[2017-07-14] MEDS: LASIX TAB PO SCH (05:39)
[2017-07-14] MEDS: SYNTHROID PO SCH (05:39)
[2017-07-14] MEDS: DUONEB NEB SCH ×2 (05:40→11:16)
[2017-07-14] MEDS ORDERED: PREDNISONE PO SCH (08:00)
[2017-07-14] MEDS ORDERED: K-DUR PO STA (08:03)
[2017-07-14] MEDS ORDERED: KEFLEX PO STA (09:28)
[2017-07-14] MEDS: ZESTRIL PO SCH (09:44)
[2017-07-14] MEDS: SYMBICORT 160-4.5 MCG INHALER IH SCH (09:44)
[2017-07-14] MEDS: COREG PO SCH (09:45)
[2017-07-14] MEDS: LOVENOX SUBCUT SCH (09:47)
[2017-07-14] MEDS: ROCEPHIN 1 GM in SODIUM CHLORIDE 50 ML IV SCH (09:47)
--- NOTE | 2017-07-14 10:07 | PCM.PROG ---
Attending Provider: ATTENDING PROVIDER: Dr. MACKENZIE FUENTES This patient is seen with Lizette Latham, Nurse Practitioner. DATE OF SERVICE: 07/14/17 SUBJECTIVE: This 82 year old WHITE/ M was hospitalized 07/11/17. The patient is lying in bed, alert. The patient has been up and about. He has been eating well. Shortness of breath has resolved. Leg edema slightly improved, would like to be discharged today. REVIEW OF SYSTEMS: CONSTITUTIONAL: No night sweats. No fatigue, malaise, lethargy. No fever or chills. HEENT: Eyes: No visual changes. No eye pain. No eye discharge. ENT: No runny nose. No epistaxis. No sinus pain. No odynophagia. No congestion. RESPIRATORY: Cough. No congestion. No hemoptysis. No shortness of breath. CARDIOVASCULAR: No angina symptoms. No CHF symptoms. No atypical chest pain for CAD. No palpitations. No orthopnea.. GASTROINTESTINAL: No abdominal pain. No nausea or vomiting. No diarrhea or constipation. No hematemesis. No hematochezia. GENITOURINARY: No urgency. No frequency. No dysuria. No hematuria. No obstructive symptoms. No discharge. No pain. No significant abnormal bleeding. MUSCULOSKELETAL: No musculoskeletal pain; no joint swelling. NEUROLOGICAL: Awake, alert, oriented to time, place and person. No headache. No neck pain. No syncope. No seizures. No dizziness. PSYCHIATRIC: Not anxious. No depression. No suicidal thoughts. No homicidal thoughts. SKIN: No rash. No lesions. No wounds. ENDOCRINE: No unexplained weight loss. No weight gain. HEMATOLOGIC/LYMPHATIC: No anemia. No purpura. No petechiae. No prolonged or excessive bleeding. No palpable lymph nodes. PHYSICAL EXAMINATION: GENERAL: The patient is awake, alert and oriented, lying in bed in no distress. VITAL SIGNS: Temperature 97.8 F, Pulse 78, Respiratory Rate 18, BP 101/58, Pulse Ox 96% HEENT: Head normocephalic, atraumatic. Eyes: Extraocular muscles are intact. Pupils are equal, round and reactive to light and accommodation. Ears: No lesions. Nose appeared normal. Throat: No exudate or erythema. NECK: Supple. No JVD, no carotid bruit. No lymphadenopathy or thyromegaly. LUNGS: Diminished breath sounds. Clear to auscultation. Percussion note normal. Chest symmetrical. HEART: S1, S2, no S3. No murmurs. No cyanosis or clubbing. No ascites. Pulses: Dorsalis pedis and posterior tibial pulses +1 to +2 both sides. ABDOMEN: Soft. Non-tender. Bowel sounds active. No CVA tenderness. No mass felt. EXTREMITIES: +1 bilateral edema, chronic. Full range of motion of all extremities, equal. NEUROLOGIC: No focal deficit. Cranial nerves II through XII are grossly intact. No headache, no double vision or headache. SKIN: Not dry. Intact. Turgor-normal. LYMPHATIC: No palpable lymph nodes/no lymphedema. MUSCULOSKELETAL: Normal joints with no swelling. Muscle tone is normal. LAB REVIEW: 07/14/17 05:05 07/14/17 05:05 07/14/17 05:05: Sodium 138, Potassium 3.4 L, Chloride 96 L, Carbon Dioxide 30, Anion Gap 15.4, BUN 32 H, Creatinine 1.15 H, Estimated GFR (MDRD) 61.00, BUN/ Creatinine Ratio 27.82, Glucose 158 H, Calcium 9.0, Total Bilirubin 0.7, AST 19 , ALT 27, Alkaline Phosphatase 46 L, Total Protein 6.5, Albumin 3.3 L, Globulin 3.2, Albumin/Globulin Ratio 1.03 07/14/17 05:05: WBC 11.34 H D, RBC 4.21 L, Hgb 13.7 L, Hct 40.0 L, MCV 95.0 H, MCH 32.5 H, MCHC 34.3, RDW Coeff of Leonardo 13.4, Plt Count 230, Immature Gran % ( Auto) 0.4, Neut % (Auto) 69.6, Lymph % (Auto) 21.9, [place] % (Auto) 7.7, Eos % ( Auto) 0.3, Baso % (Auto) 0.1, Immature Gran # (Auto) 0.0, Neut # (Auto) 7.9 H, Lymph # (Auto) 2.5, [place] # (Auto) 0.9, Eos # (Auto) 0.0, Baso # (Auto) 0.0 ASSESSMENT: 1. COPD EXACERBATION 2. LEG EDEMA, IMPROVED 3. CHRONIC KIDNEY DISEASE PLAN: 1. Discharge home 2. Will followup in Dr. Fuentes's office on the 07/21/17 as scheduled 3. Potassium 40 mEq before discharge 4. Keflex 500 mg t.i.d. 7 days 5. Prednisone 20 mg daily for 4 days then 1/2 tablet for three days 6. NEBS t.i.d. Plan and coordination of the patient's care discussed in the presence of Chief Underwriter and nurse. CONDITION: Stable SCRIBED BY: JOCELINE VINSON Oil Painter scribed while in presence of service performed by Dr. Fuentes/Lizette Latham APRN on 07/14/17 ([id number])
[2017-07-14 10:38] VITALS: BP 101/57; TEMP 98.6
--- NOTE | 2017-07-14 12:01 | CM.DICTOOL ---
ADMISSION: 07/11/17 12:03 DISCHARGE: 07/14/17 DATE OF SERVICE: 07/14/17 FINAL DIAGNOSIS COPD EXACERBATION SHORTNESS OF BREATH A-FIB, CONTROLLED CHRONIC LEG EDEMA CONGESTIVE HEART FAILURE BY HISTORY CARDIOMEGALY HYPOTHYROIDISM DYSLIPIDEMIA HYPERTENSION BPH DDD-SPINE OSTEOARTHRITIS PERIPHERAL NEUROPATHY GLAUCOMA FORMER SMOKER TONSILLECTOMY CATARACT EXTRACTION, LEFT LAST PFT AT [facility] 02/06/18 - SEVERE COPD LAST ECHO AT [facility] 03/20/17 [facility] NORMAL LEFT VENTRICULAR CONTRACTILITY, 50% NORMAL VALVES LAST VITALS Temp Pulse Resp BP Pulse Ox 97.8 F 78 18 101/58 L 96 07/14/17 05:10 07/14/17 05:10 07/14/17 05:10 07/14/17 05:10 07/14/17 05:10 TAKE THESE MEDICATIONS AT HOME Albuterol/Ipratropium (Duoneb) 1 vial NEB RTQ6H [facility] Last Admin: 07/14/17 05:40 Dose: 1 vial Carvedilol (Coreg) 3.125 mg PO BIDWM [facility] Last Admin: 07/14/17 09:45 Dose: 3.125 mg Furosemide (Lasix Tab) 40 mg PO QDAC [facility] Last Admin: 07/14/17 05:39 Dose: 40 mg Levothyroxine Sodium (Synthroid) 100 mcg PO QDAC [facility] Last Admin: 07/14/17 05:39 Dose: 100 mcg Lisinopril (Zestril) 2.5 mg PO BID [facility] Last Admin: 07/14/17 09:44 Dose: 2.5 mg Metolazone (Zaroxolyn) 2.5 mg PO MOWEFR PRN PRN Reason: Swelling Last Admin: 07/13/17 08:59 Dose: 2.5 mg Pravastatin Sodium (Pravachol) 40 mg PO BEDTIME [facility] Last Admin: 07/13/17 21:58 Dose: 40 mg Prednisone (Prednisone) TAPERING DOSE WM [facility] Last Admin: 07/14/17 09:44 Dose: 20 mg Tamsulosin HCl (Flomax) 0.4 mg PO BEDTIME [facility] Last Admin: 07/13/17 21:58 Dose: 0.4 mg MEDICATION CHANGES DURING THIS STAY SEE NEW PRESCRIPTIONS No Medication Changes During This Stay ALLERGIES No Known Allergies Allergy (Verified 02/02/17 11:58) NEW PRESCRIPTIONS: CONTINUE YOUR PROAIR INHALER INSTRUCTED CONTINUE YOUR NEBULIZED BREATHING TREATMENTS PRIOR TO THIS STAY KEFLEX 500 MG, TAKE ONE CAPSULE BY MOUTH THREE TIMES DAILY FOR SEVEN DAYS PREDNISONE 10 MG, TAKE TWO TABLETS (20 MG) BY MOUTH WITH FOOD DAILY FOR 4 DAYS, THEN PREDNISONE 10 MG, TAKE ONE TABLET (10 MG) BY MOUTH WITH FOOD DAILY FOR 3 DAYS, THEN STOP SMOKING: FORMER SMOKER NONE NOW DISEASE SPECIFIC EDUCATION: COPD HOME MEDICATIONS NEW PRESCRIPTIONS POSSIBLE ADVERSE EFFECTS WITH FURNACE PUNCHER STEROID USE FOLLOW UP NEBULIZER AND INHALER USE AT HOME LAB REVIEW: 07/14/17 05:05 07/14/17 05:05 07/14/17 05:05: Sodium 138, Potassium 3.4 L, Chloride 96 L, Carbon Dioxide 30, Anion Gap 15.4, BUN 32 H, Creatinine 1.15 H, Estimated GFR (MDRD) 61.00, BUN/ Creatinine Ratio 27.82, Glucose 158 H, Calcium 9.0, Total Bilirubin 0.7, AST 19 , ALT 27, Alkaline Phosphatase 46 L, Total Protein 6.5, Albumin 3.3 L, Globulin 3.2, Albumin/Globulin Ratio 1.03 07/14/17 05:05: WBC 11.34 H D, RBC 4.21 L, Hgb 13.7 L, Hct 40.0 L, MCV 95.0 H, MCH 32.5 H, MCHC 34.3, RDW Coeff of Leonardo 13.4, Plt Count 230, Immature Gran % ( Auto) 0.4, Neut % (Auto) 69.6, Lymph % (Auto) 21.9, [place] % (Auto) 7.7, Eos % ( Auto) 0.3, Baso % (Auto) 0.1, Immature Gran # (Auto) 0.0, Neut # (Auto) 7.9 H, Lymph # (Auto) 2.5, [place] # (Auto) 0.9, Eos # (Auto) 0.0, Baso # (Auto) 0.0 PLAN: DISCHARGE HOME TODAY KEEP YOUR PREVIOUSLY SCHEDULED APPOINTMENT WITH DR. FUENTES ON 07/23/17 AT 9:45 A.M. RESUME YOUR HOME MEDICATIONS PER LIST PROVIDED BY THE NURSING STAFF CONTINUE YOUR PROAIR INHALER INSTRUCTED CONTINUE YOUR NEBULIZED BREATHING TREATMENTS PRIOR TO THIS STAY NEW PRESCRIPTIONS KEFLEX 500 MG, TAKE ONE CAPSULE BY MOUTH THREE TIMES DAILY FOR SEVEN DAYS PREDNISONE 10 MG, TAKE TWO TABLETS (20 MG) BY MOUTH WITH FOOD DAILY FOR 4 DAYS, THEN PREDNISONE 10 MG, TAKE ONE TABLET (10 MG) BY MOUTH WITH FOOD DAILY FOR 3 DAYS, THEN STOP ACTIVITY GET PLENTY OF REST AT HOME. GRADUALLY INCREASE YOUR ACTIVITY LEVEL ACCORDING TO YOUR TOLERATION KEEP YOUR FEET/LEGS ELEVATED FREQUENTLY POSSIBLE DIET HEALTHY HEART SUMMARY THE PATIENT IS ALERT AND ORIENTED X3. HE CURRENTLY IS STAYING WITH HIS SIGNIFICANT OTHER AND DESIRES TO RETURN THERE AT DISCHARGE. HE CONTINUES TO BE ABLE TO PROVIDE HIS OWN TRANSPORTATION AND REQUIRES LITTLE ASSISTANCE WITH [employer]. HE HAS A CANE TO ASSIST WITH AMBULATION AND A NEBULIZER FOR BREATHING TREATMENTS AT HOME NOW. THE PATIENT HAS SHOWN POSITIVE CLINICAL IMPROVEMENT DURING THIS STAY. HIS RESPIRATORY EFFORT IS EASIER AND HIS LUNGS ARE CLEAR WITH DIMINISHED BREATH SOUNDS. SKIN IS WITHOUT DECUBITUS ULCERS AND THE TURGOR IS FAIR TO GOOD. BILATERAL LOWER EXTREMITY EDEMA HAS IMPROVED BUT CONTINUES TO BE CHRONICALLY PRESENT. MR. LANDRY IS AGREEABLE TO FOLLOW UP THROUGH THE OFFICE MENTIONED ABOVE. CURRENT CODE STATUS FULL CODE GEOFFREY ACUNA APRN MACKENZIE FUENTES M.D.
--- NOTE | 2017-07-16 10:36 | DS ---
DATE OF SERVICE: 07/14/17 FINAL DIAGNOSIS: COPD EXACERBATION SHORTNESS OF BREATH A-FIB, CONTROLLED CHRONIC LEG EDEMA CONGESTIVE HEART FAILURE BY HISTORY CARDIOMEGALY HYPOTHYROIDISM DYSLIPIDEMIA HYPERTENSION BPH DDD-SPINE OSTEOARTHRITIS PERIPHERAL NEUROPATHY GLAUCOMA FORMER SMOKER TONSILLECTOMY CATARACT EXTRACTION, LEFT LAST PFT AT [facility] 02/06/18 - SEVERE COPD LAST ECHO AT [facility] 03/20/17 [facility] NORMAL LEFT VENTRICULAR CONTRACTILITY, 50% NORMAL VALVES LAST VITALS: Temp Pulse Resp BP Pulse Ox 97.8 F 78 18 101/58 L 96 TAKE THESE MEDICATIONS AT HOME: Albuterol/Ipratropium (Duoneb) 1 vial NEB RTQ6H [facility] Carvedilol (Coreg) 3.125 mg PO BIDWM [facility] Furosemide (Lasix Tab) 40 mg PO QDAC [facility] Levothyroxine Sodium (Synthroid) 100 mcg PO QDAC [facility] Lisinopril (Zestril) 2.5 mg PO BID [facility] Metolazone (Zaroxolyn) 2.5 mg PO MOWEFR PRN Pravastatin Sodium (Pravachol) 40 mg PO BEDTIME [facility] Prednisone (Prednisone) TAPERING DOSE WM [facility] Tamsulosin HCl (Flomax) 0.4 mg PO BEDTIME [facility] MEDICATION CHANGES DURING THIS STAY: SEE NEW PRESCRIPTIONS No Medication Changes During This Stay ALLERGIES: No Known Allergies Allergy (Verified 02/02/17 11:58) NEW PRESCRIPTIONS: CONTINUE YOUR PROAIR INHALER INSTRUCTED CONTINUE YOUR NEBULIZED BREATHING TREATMENTS PRIOR TO THIS STAY KEFLEX 500 MG, TAKE ONE CAPSULE BY MOUTH THREE TIMES DAILY FOR SEVEN DAYS PREDNISONE 10 MG, TAKE TWO TABLETS (20 MG) BY MOUTH WITH FOOD DAILY FOR 4 DAYS, THEN PREDNISONE 10 MG, TAKE ONE TABLET (10 MG) BY MOUTH WITH FOOD DAILY FOR 3 DAYS, THEN STOP SMOKING: FORMER SMOKER NONE NOW DISEASE SPECIFIC EDUCATION: COPD HOME MEDICATIONS NEW PRESCRIPTIONS POSSIBLE ADVERSE EFFECTS WITH VIDEO CONFERENCE SPECIALIST STEROID USE FOLLOW UP NEBULIZER AND INHALER USE AT HOME PLAN: DISCHARGE HOME TODAY KEEP YOUR PREVIOUSLY SCHEDULED APPOINTMENT WITH DR. FUENTES ON 07/23/17 AT 9:45 A.M. RESUME YOUR HOME MEDICATIONS PER LIST PROVIDED BY THE NURSING STAFF CONTINUE YOUR PROAIR INHALER INSTRUCTED CONTINUE YOUR NEBULIZED BREATHING TREATMENTS PRIOR TO THIS STAY ACTIVITY: GET PLENTY OF REST AT HOME. GRADUALLY INCREASE YOUR ACTIVITY LEVEL ACCORDING TO YOUR TOLERATION KEEP YOUR FEET/LEGS ELEVATED FREQUENTLY POSSIBLE DIET: HEALTHY HEART HOSPITAL COURSE: 82 year old white male who presented to the emergency room by his family complaining of shortness of breath. He has a long history of COPD. He was coughing and wheezing and had been for several days. He was afebrile. ABG's were abnormal showing low oxygen saturation. He does not have home oxygen. Chest CT showed changing associated with bronchitis and inflammation and chronic lung disease. He was admitted and placed on Rocephin 1 gram IV daily along with Solu-Cortef 125mg IV Q 8 hours and started on Xopenex NEBS treatments. Oxygen at 1-2 liters as needed. Sputum for culture with a daily CBC and CMP. He does have a history of chronic kidney disease. His kidney function is slightly elevated on admission which usually his is for a baseline however his BUN was slightly elevated. One bag of fluids was given with normal saline with 75cc an hour. He does have chronic leg edema, he had +2 edema on admission this is chronic. There was no signs of CHF. He was given a one time dose of IV Lasix 20mg. His leg edema did improve while he was here somewhat however has not completely resolved. He is on Lasix orally daily. Within the past 24 hours he has been up walking around with minimal shortness of breath. He has been eating well and he has not required any oxygen. He does have a nebulizer machine at home with medicine which he will continue his NEBS treatment 3-4 times daily. We will send him home on Keflex 500mg PO three times a day for the next 7 days along with Prednisone 20mg daily times four days then 10mg daily times three days. He will followup with us in the office next week. TIME SPENT: More than 60 minutes. ANDRESD
--- NOTE | 2017-07-16 10:55 | HP ---
DATE OF SERVICE: 07/12/17 REASON FOR HOSPITALIZATION/HISTORY OF PRESENT ILLNESS: This is an 82 year old white male who presented to the emergency room by his family. He has a long history of COPD. He was stating that he was short of breath from coughing and wheezing. PAST MEDICAL HISTORY: Diabetes Mellitus type 2 Hypertension History of CHF COPD, moderate to severe BPH Hypothyroidism Obesity Chronic leg edema Chronic bronchitis Vitamin B 12 deficiency Glaucoma right eye PAST SURGICAL HISTORY: Tonsillectomy Glaucoma surgery right eye REVIEW OF SYSTEMS: CONSTITUTIONAL: No night sweats. No fatigue, malaise, lethargy. No fever or chills. HEENT: Eyes: No visual changes. No eye pain. No eye discharge. ENT: No runny nose. No epistaxis. No sinus pain. No sore throat. No odynophagia. No ear pain. No congestion. RESPIRATORY: Cough, no congestion. No hemoptysis. Shortness of breath. Wheezing. CARDIOVASCULAR: No angina symptoms. No CHF symptoms. No atypical chest pain for CAD. No palpitations. No PND. No orthopnea. GASTROINTESTINAL: No abdominal pain. No nausea or vomiting. No diarrhea or constipation. No hematemesis. No hematochezia. GENITOURINARY: No urgency. No frequency. No dysuria. No hematuria. No obstructive symptoms. No discharge. No pain. No significant abnormal bleeding. MUSCULOSKELETAL: No musculoskeletal pain. No joint swelling. No arthritis. NEUROLOGICAL: No headache. No neck pain. No syncope. No seizures. No dizziness. PSYCHIATRIC: Not anxious. No depression. No suicidal thoughts. No homicidal thoughts. SKIN: No rash. No lesions. No wounds. leg edema. ENDOCRINE: No unexplained weight loss. No weight gain. HEMATOLOGIC/LYMPHATIC: No anemia. No purpura. No petechiae. No prolonged or excessive bleeding. No palpable lymph nodes. PERSONAL/FAMILY/SOCIAL HISTORY: The patient is a former smoker, he has quit for great than 10 years. 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 No alcohol or illicit drug use. MEDICATIONS: Flomax 0.4mg PO bedtime Coreg 3.125mg PO twice a day Pravachol 40mg PO bedtime Zaroxolyn 2.5mg PO MOWEFR PRN Zestril 2.5mg PO twice a day Iprat-Albuterol 3ml IH Q 8 hours Lasix 40mg PO daily Levothyroxine 100 mcg PO daily ALLERGIES: No known allergies. PHYSICAL EXAMINATION: VITAL SIGNS: Temperature 97.2, heart rate 73, respiratory rate 28, blood pressure 112/73, pulse ox 93%. HEENT: Head normocephalic, atraumatic. Eyes: Extraocular muscles are intact. Pupils are equal, round and reactive to light and accommodation. Ears: No lesions. Nose appeared normal. Throat: No exudate or erythema. NECK: Supple. No JVD, no carotid bruit. No lymphadenopathy or thyromegaly. LUNGS: Diminished breath sounds bilaterally with expiratory wheezes bilaterally. Clear to auscultation. Percussion note normal. Chest symmetrical. HEART: S1, S2, no S3. No murmurs. No cyanosis or clubbing. No ascites. Pulses: Dorsalis pedis and posterior tibial pulses +1 to +2 bilaterally. ABDOMEN: Soft. Nontender. Bowel sounds active. No CVA tenderness. No mass felt. EXTREMITIES: +2 leg edema which is chronic. Full range of motion of all extremities, equal. NEUROLOGIC: No focal deficit. Cranial nerves II through XII are grossly intact. No headache, no double vision or headache. SKIN: Not dry. Intact. Turgor - normal. LYMPHATIC: No palpable lymph nodes/no lymphedema. MUSCULOSKELETAL: Normal joints with no swelling. Muscle tone is normal. LABS: Initial ABG on room air; pH 7.487, pCo2 41.3, pO2 75, base excess of 8, bicarb 31.3, TCO2 33, O2 96. Sodium 136, potassium 3.7, Co2 29, BUN 20, creatinine 1.10 , glucose 195, GFR 64, bilirubin 0.8, AST 19, ALT 22, Alkaline phosphatase 51, TSH 3.296, Hgb 13.2, hct 39.2, plt count 210. CT of chest shows no acute cardio pulmonary process, lower airway thickening representing inflammation, hepatic cyst on the liver. ASSESSMENT: 1. Acute COPD exacerbation 2. Shortness of breath 3. Mild dehydration 4. Chronic kidney disease 5. Diabetes Mellitus type 2 6. COPD 7. Chronic leg edema 8. Hypertension 9. Obesity 10.History of CHF PLAN: 1. Will admit to the floor 2. Placed on Rocephin 1 gram IV daily 3. CBC and CMP daily 4. IV fluids Normal saline at 75cc an hours times 1 bag 5. Solu-Cortef 125mg IV Q 8 hours 6. Start Xopenex NEBS treatment Q 6 hours 7. Continue all home medication 8. Elevate legs 9. 20mg IV Lasix one time 10.BNP Will follow closely. TIME SPENT: More than 70 minutes. MTDD
== END 2017-07-14 12:52 | disposition home or self-care (01) | DRG 192 ==
LOC: ED 10:38 → MEDSURG B 12:03
PROVIDERS: ADMIT Internal Medicine; ATTEND Internal Medicine
DX: J44.1 Chronic obstructive pulmonary disease with (acute) exacerbation (principal); R06.02 Shortness of breath; R60.0 Localized edema; I50.9 Heart failure, unspecified; I12.9 Hypertensive chronic kidney disease with stage 1 through stage 4 chronic kidney disease, or unspecified chronic kidney disease; E11.22 Type 2 diabetes mellitus with diabetic chronic kidney disease; N18.9 Chronic kidney disease, unspecified; I48.91 Unspecified atrial fibrillation; I10 Essential (primary) hypertension; I51.7 Cardiomegaly; E03.9 Hypothyroidism, unspecified; E78.5 Hyperlipidemia, unspecified; N40.0 Benign prostatic hyperplasia without lower urinary tract symptoms; M19.90 Unspecified osteoarthritis, unspecified site; G62.9 Polyneuropathy, unspecified; Z87.891 Personal history of nicotine dependence; Z79.899 Other long term (current) drug therapy
CPT/HCPCS: 36415; 80053; 82550; 82803; 83880; 84443; 84484; 85025; 93005; 93010; 94640; 96375; 97802; 99284

== ENCOUNTER 2017-09-24 11:07 | Inpatient (IN) ==
[2017-09-24] MEDS ORDERED: NITROSTAT SL PRN (11:34)
[2017-09-24] MEDS ORDERED: ATROPINE SULFATE PFS IVP PRN (11:34)
[2017-09-24] MEDS ORDERED: MORPHINE 4 MG/ML VIAL IVP PRN (11:34)
[2017-09-24] MEDS ORDERED: TYLENOL PO PRN (11:34)
[2017-09-24] MEDS ORDERED: VISTARIL INJ IM PRN (11:34)
[2017-09-24 11:56] VITALS: BMI 37.9
[2017-09-24] MEDS: ZAROXOLYN PO SCH (12:19)
[2017-09-24] MEDS: SOLU-CORTEF 250 MG IVP SCH ×2 (12:19→21:21)
[2017-09-24] MEDS: LASIX IVP SCH (12:19)
[2017-09-24] MEDS ORDERED: DUONEB NEB SCH (12:30)
--- NOTE | 2017-09-24 12:42 | DI ---
EXAM: CHEST FRONTAL AND LATERAL VIEWS HISTORY: Shortness of breath. COMPARISON: 05/17/2017 FINDINGS: Heart size remains within normal limits. Slight ectasia of the aorta. Lungs appear mildl y hyperinflated. No acute infiltrates are seen. No vascular congestion. There is no consolidation, visible pleural fluid or pneumothorax. Bones reveal no acute fracture. IMPRESSION: Hyperinflation. Correlate for any evidence of chronic obstructive pulmonary disease. No acute infiltrates.
[2017-09-24] MEDS: XOPENEX 1.25 MG NEB SCH ×3 (14:25→22:49)
[2017-09-24] MEDS: COREG PO SCH (16:49)
[2017-09-24] MEDS ORDERED: PROAIR HFA IH SCH (21:00)
[2017-09-24] MEDS: BIMATOPROST OPTH OP SCH (21:09)
[2017-09-24] MEDS: FLOMAX PO SCH (21:09)
[2017-09-24] MEDS: BRINZOLAMIDE OP SCH (21:09)
[2017-09-24] MEDS: PRAVACHOL PO SCH (21:09)
[2017-09-24] MEDS: ZESTRIL PO SCH (21:10)
[2017-09-25] MEDS: XOPENEX 1.25 MG NEB SCH ×4 (05:00→22:28)
[2017-09-25] MEDS: SYNTHROID PO SCH (05:43)
[2017-09-25] MEDS: LASIX IVP SCH (05:43)
[2017-09-25] MEDS ORDERED: CITRATE OF MAGNESIA PO STA (08:31)
[2017-09-25] MEDS: BRINZOLAMIDE OP SCH ×2 (09:04→20:35)
[2017-09-25] MEDS: ZESTRIL PO SCH ×2 (09:06→20:36)
[2017-09-25] MEDS: SOLU-CORTEF 250 MG IVP SCH ×2 (09:07→20:33)
[2017-09-25] MEDS: SYMBICORT 160-4.5 MCG INHALER IH SCH (09:07)
[2017-09-25] MEDS: ASPIRIN EC PO SCH (09:07)
[2017-09-25] MEDS: COREG PO SCH ×2 (09:07→17:16)
[2017-09-25] MEDS: ZAROXOLYN PO SCH (09:10)
--- NOTE | 2017-09-25 11:31 | PCM.PROG ---
Attending Provider: ATTENDING PROVIDER: Dr. MACKENZIE FUENTES This patient is seen with Lizette Latham, Nurse Practitioner. DATE OF SERVICE: 09/25/17 SUBJECTIVE: This 82 year old WHITE/ M was hospitalized 09/24/17. The patient is lying in bed, alert. He states he did not sleep well. Leg edema is slightly improved, still short of breath. REVIEW OF SYSTEMS: CONSTITUTIONAL: No night sweats. No fatigue, malaise, lethargy. No fever or chills. HEENT: Eyes: No visual changes. No eye pain. No eye discharge. ENT: No runny nose. No epistaxis. No sinus pain. No odynophagia. No congestion. RESPIRATORY: No cough, no congestion. No hemoptysis. Shortness of breath. CARDIOVASCULAR: No angina symptoms. No CHF symptoms. No atypical chest pain for CAD. No palpitations. No orthopnea.. GASTROINTESTINAL: Constipation. No abdominal pain. No nausea or vomiting. No diarrhea. No hematemesis. No hematochezia. GENITOURINARY: No urgency. No frequency. No dysuria. No hematuria. No obstructive symptoms. No discharge. No pain. No significant abnormal bleeding. MUSCULOSKELETAL: Leg weakness. NEUROLOGICAL: Awake, alert, oriented to time, place and person. No headache. No neck pain. No syncope. No seizures. No dizziness. PSYCHIATRIC: Not anxious. No depression. No suicidal thoughts. No homicidal thoughts. SKIN: No rash. No lesions. No wounds. ENDOCRINE: No unexplained weight loss. No weight gain. HEMATOLOGIC/LYMPHATIC: No anemia. No purpura. No petechiae. No prolonged or excessive bleeding. No palpable lymph nodes. PHYSICAL EXAMINATION: GENERAL: The patient is awake, alert and oriented, sitting in bed in no distress. VITAL SIGNS: Temperature 97.6 F, Pulse 74, Respiratory Rate 19, BP 103/68, Pulse Ox 95% HEENT: Head normocephalic, atraumatic. Eyes: Extraocular muscles are intact. Pupils are equal, round and reactive to light and accommodation. Ears: No lesions. Nose appeared normal. Throat: No exudate or erythema. NECK: Supple. No JVD, no carotid bruit. No lymphadenopathy or thyromegaly. LUNGS: Diminished breath sounds. Clear to auscultation. Percussion note normal. Chest symmetrical. HEART: S1, S2, no S3. No murmurs. No cyanosis or clubbing. No ascites. Pulses: Dorsalis pedis and posterior tibial pulses +1 to +2 both sides. ABDOMEN: Soft. Non-tender. Bowel sounds active. No CVA tenderness. No mass felt. EXTREMITIES: +2 pitting bilateral lower extremity edema. Full range of motion of all extremities, equal. NEUROLOGIC: No focal deficit. Cranial nerves II through XII are grossly intact. No headache, no double vision or headache. SKIN: Not dry. Intact. Turgor-normal. LYMPHATIC: No palpable lymph nodes/no lymphedema. MUSCULOSKELETAL: Normal joints with no swelling. Muscle tone is normal. LAB REVIEW: 09/25/17 04:45 09/25/17 04:45 09/25/17 04:45: Sodium 138, Potassium 3.6, Chloride 93 L, Carbon Dioxide 34 H, Anion Gap 14.6, BUN 32 H, Creatinine 1.21 H, Estimated GFR (MDRD) 58.00, BUN/ Creatinine Ratio 26.44, Glucose 206 H D, Calcium 8.9, Total Bilirubin 0.7, AST 20, ALT 25, Alkaline Phosphatase 58, Total Protein 7.3, Albumin 3.3 L, Globulin 4.0, Albumin/Globulin Ratio 0.83 09/25/17 04:45: WBC 9.94, RBC 4.39 L, Hgb 14.0, Hct 43.0, MCV 97.9 H, MCH 31.9 H , MCHC 32.6, RDW Coeff of Leonardo 12.9, Plt Count 288, Immature Gran % (Auto) 0.3, Neut % (Auto) 78.3, Lymph % (Auto) 17.2, [place] % (Auto) 3.6, Eos % (Auto) 0.2, Baso % (Auto) 0.4, Immature Gran # (Auto) 0.0, Neut # (Auto) 7.8 H, Lymph # ( Auto) 1.7, [place] # (Auto) 0.4, Eos # (Auto) 0.0, Baso # (Auto) 0.0 09/24/17 19:44: Total Creatine Kinase 87, Troponin I 0.0120 09/24/17 13:15: Urine Color Yellow, Urine Clarity Clear, Urine pH 6.0, Ur Specific [place] 1.010, Urine Protein Negative, Urine Glucose (UA) Negative, Urine Ketones Negative, Urine Blood Negative, Urine Nitrite Negative, Urine Bilirubin Negative, Urine Urobilinogen 0.2, Ur Leukocyte Esterase Negative 09/24/17 12:00: Sodium 137, Potassium 3.9, Chloride 94 L, Carbon Dioxide 33 H, Anion Gap 13.9, BUN 26 H, Creatinine 1.16 H, Estimated GFR (MDRD) 60.00, BUN/ Creatinine Ratio 22.41, Glucose 146 H, Calcium 9.0, Total Bilirubin 0.8, AST 19 , ALT 23, Alkaline Phosphatase 56, Total Protein 7.2, Albumin 3.4, Globulin 3.8 , Albumin/Globulin Ratio 0.89 09/24/17 11:54: Puncture Site rt brachial, O2 Saturation 95.0, ABG pH 7.509 H*, ABG pCO2 41.0, ABG pO2 67.0 L, ABG HCO3 32.6 H, ABG Total CO2 34 H, ABG Base Excess 10 H, Alfonzo Test manager metal, FiO2 % 21.0 09/24/17 11:46: Hemoglobin A1c 6.9 H 09/24/17 11:45: Total Creatine Kinase 87, Troponin I < 0.0100, TSH 3.203, Free T4 1.11 09/24/17 11:45: B-Natriuretic Peptide < 10 09/24/17 11:34: WBC 10.26 H, RBC 4.34 L, Hgb 13.6 L, Hct 41.4 L, MCV 95.4 H, MCH 31.3 H, MCHC 32.9, RDW Coeff of Leonardo 13.0, Plt Count 270, Immature Gran % ( Auto) 0.3, Neut % (Auto) 65.2, Lymph % (Auto) 22.8, [place] % (Auto) 7.6, Eos % ( Auto) 3.5, Baso % (Auto) 0.6, Immature Gran # (Auto) 0.0, Neut # (Auto) 6.7, Lymph # (Auto) 2.3, [place] # (Auto) 0.8, Eos # (Auto) 0.4, Baso # (Auto) 0.1 ASSESSMENT: 1. LEG EDEMA 2. CHF 3. SHORTNESS OF BREATH 4. COPD 5. CONSTIPATION 6. CHRONIC KIDNEY DISEASE PLAN: 1. Ativan 1 mg at night 2. CBC and CMP daily 3. Magnesium Citrate 4. Will check latest echocardiogram Plan and coordination of the patient's care discussed in the presence of Pepper Picker and nurse. CONDITION: Stable SCRIBED BY: JOCELINE VINSON Associate Spa Director scribed while in presence of service performed by Dr. Fuentes/Lizette Latham APRN on 09/25/17 ([id number])
--- NOTE | 2017-09-25 14:19 | PN ---
DATE OF SERVICE: 09/25/17 SUBJECTIVE: The patient was hospitalized with leg edema, shortness of breath with acute exacerbation of COPD. His condition has improved. He is feeling better. Leg swelling is somewhat down. His chronic lung disease with bronchitis seems to be somewhat improving. He was also explained that I will be leaving town and Dr. Ruiz will be following him and he is agreeable to that. Condition is improving. His BNP was normal. The patient was seen and examined with nurse practitioner. TIME SPENT: More than 30 minutes. Plan and coordination of the patient's care discussed in the presence of nurse. KENTRELL
[2017-09-25] MEDS: FLOMAX PO SCH (20:34)
[2017-09-25] MEDS: PRAVACHOL PO SCH (20:34)
[2017-09-25] MEDS: ATIVAN PO SCH (20:34)
[2017-09-25] MEDS: BIMATOPROST OPTH OP SCH (20:35)
[2017-09-26] MEDS: XOPENEX 1.25 MG NEB SCH ×4 (05:06→23:05)
[2017-09-26] MEDS: LASIX IVP SCH (06:34)
[2017-09-26] MEDS: SYNTHROID PO SCH (06:35)
[2017-09-26] MEDS: ZESTRIL PO SCH ×2 (08:48→21:18)
[2017-09-26] MEDS: ZAROXOLYN PO SCH (08:49)
[2017-09-26] MEDS: COREG PO SCH ×2 (08:49→16:51)
[2017-09-26] MEDS: ASPIRIN EC PO SCH (08:49)
[2017-09-26] MEDS: SOLU-CORTEF 250 MG IVP SCH ×2 (08:50→21:15)
[2017-09-26] MEDS: BRINZOLAMIDE OP SCH ×2 (08:50→21:17)
[2017-09-26] MEDS: SYMBICORT 160-4.5 MCG INHALER IH SCH (08:50)
[2017-09-26] MEDS: PRAVACHOL PO SCH (21:16)
[2017-09-26] MEDS: FLOMAX PO SCH (21:16)
[2017-09-26] MEDS: ATIVAN PO SCH (21:16)
[2017-09-26] MEDS: BIMATOPROST OPTH OP SCH (21:17)
[2017-09-27] MEDS: XOPENEX 1.25 MG NEB SCH ×4 (05:00→22:38)
[2017-09-27] MEDS: SYNTHROID PO SCH (05:54)
[2017-09-27] MEDS: LASIX IVP SCH (05:54)
[2017-09-27] MEDS: SYMBICORT 160-4.5 MCG INHALER IH SCH (08:02)
[2017-09-27] MEDS: BRINZOLAMIDE OP SCH ×2 (08:02→20:50)
[2017-09-27] MEDS: ZAROXOLYN PO SCH (08:03)
[2017-09-27] MEDS: COREG PO SCH ×2 (08:03→16:56)
[2017-09-27] MEDS: ASPIRIN EC PO SCH (08:03)
[2017-09-27] MEDS: ZESTRIL PO SCH ×2 (08:03→20:50)
[2017-09-27] MEDS: SOLU-CORTEF 250 MG IVP SCH (08:03)
[2017-09-27] MEDS: PREDNISONE PO SCH (16:56)
[2017-09-27] MEDS: BIMATOPROST OPTH OP SCH (20:49)
[2017-09-27] MEDS: FLOMAX PO SCH (20:50)
[2017-09-27] MEDS: ATIVAN PO SCH (20:50)
[2017-09-27] MEDS: PRAVACHOL PO SCH (20:50)
[2017-09-28 04:18] VITALS: TEMP 97.5
[2017-09-28] MEDS: XOPENEX 1.25 MG NEB SCH ×2 (05:11→11:15)
[2017-09-28] MEDS: SYNTHROID PO SCH (05:32)
--- NOTE | 2017-09-28 06:29 | ECHO2D ---
Date of Exam: 09/25/17 Ordering Physician: DR. MACKENZIE FUENTES Room #: 101 Reason for Echo: CHEST PAIN M-Mode Normal Adult Results LV Dimensions Normal Adult Results AoV Opening excursions >1.6 >1.6 LVEDD-base- 3.5-5.8 4.3 Ao root dimensions 2.0-3.7 3.7 LVESD-base- 3.1-4.6 L. Atrium dimensions 1.9-3.8 3.5 Post. Wall thickness 0.8-1.1 1.2 IV septum (thickness) 0.7-1.2 1.2 Post. Wall excursion 0.72-1.3 NORMAL Septal motion NORMAL Systolic motion R. Ventricular cavity 1.5-2.0 4.0 LVEF 60% 63% Paradoxical septal wall motion NORMAL 2-D : 2-D M Mode Echocardiogram was performed using apical four chamber and left parasternal long and short axis views. Mitral, tricuspid and aortic valves appear to be normal. Contractility of the left ventricle seems to be normal, so is the cavity size. Left atrial cavity size and aortic root appear to be normal. There is no pericardial effusion. There is no thrombus noted in the left ventricular or left aortic cavity. No mitral valve prolapse noted. RIGHT VENTRICLE CAVITY ENLARGED M-MODE: MV: NORMAL AV: NORMAL TV: NORMAL PV: CHAMBER SIZE: ENLARGED RIGHT VENTRICLE CAVITY WALL MOTION: NORMAL PERICARDIUM: NORMAL INTERPRETATION: 1. LEFT VENTRICULAR HYPERTROPHY 2. ENLARGED RIGHT VENTRICLE CAVITY 3. NORMAL LEFT VENTRICULAR CONTRACTILITY 4. NORMAL VALVES MTDD
[2017-09-28] MEDS ORDERED: LASIX TAB PO SCH (06:30)
[2017-09-28] MEDS: BRINZOLAMIDE OP SCH (08:37)
[2017-09-28] MEDS: SYMBICORT 160-4.5 MCG INHALER IH SCH (08:37)
[2017-09-28] MEDS: COREG PO SCH (08:38)
[2017-09-28] MEDS: PREDNISONE PO SCH (08:38)
[2017-09-28] MEDS: ZESTRIL PO SCH (08:38)
[2017-09-28] MEDS: ASPIRIN EC PO SCH (08:38)
[2017-09-28] MEDS: ZAROXOLYN PO SCH (08:38)
[2017-09-28] MEDS ORDERED: MIRALAX PO SCH (09:00)
--- NOTE | 2017-09-28 09:35 | PCM.PROG ---
Attending Provider: ATTENDING PROVIDER: Dr. MACKENZIE RAMIREZ This patient is seen with Lizette Latham, Nurse Practitioner. DATE OF SERVICE: 09/28/17 SUBJECTIVE: This 82 year old WHITE/ M was hospitalized 09/24/17. The patient is sitting on the side of the bed, alert. He has been up and about. Leg edema has significantly improved and he is no longer wearing oxygen. REVIEW OF SYSTEMS: CONSTITUTIONAL: Fatigue. No night sweats. No malaise, lethargy. No fever or chills. HEENT: Eyes: No visual changes. No eye pain. No eye discharge. ENT: No runny nose. No epistaxis. No sinus pain. No odynophagia. No congestion. RESPIRATORY: No cough, no congestion. No hemoptysis. No shortness of breath. CARDIOVASCULAR: No angina symptoms. No CHF symptoms. No atypical chest pain for CAD. No palpitations. No orthopnea.. GASTROINTESTINAL: No abdominal pain. No nausea or vomiting. No diarrhea or constipation. No hematemesis. No hematochezia. GENITOURINARY: No urgency. No frequency. No dysuria. No hematuria. No obstructive symptoms. No discharge. No pain. No significant abnormal bleeding. MUSCULOSKELETAL: Improving leg edema. No musculoskeletal pain; no joint swelling. NEUROLOGICAL: Awake, alert, oriented to time, place and person. No headache. No neck pain. No syncope. No seizures. No dizziness. PSYCHIATRIC: Not anxious. No depression. No suicidal thoughts. No homicidal thoughts. SKIN: No rash. No lesions. No wounds. ENDOCRINE: No unexplained weight loss. No weight gain. HEMATOLOGIC/LYMPHATIC: No anemia. No purpura. No petechiae. No prolonged or excessive bleeding. No palpable lymph nodes. PHYSICAL EXAMINATION: GENERAL: The patient is awake, alert and oriented, lying/sitting in bed in no distress. VITAL SIGNS: Temperature 97.5 F, Pulse 65, Respiratory Rate 16, BP 117/66, Pulse Ox 96% HEENT: Head normocephalic, atraumatic. Eyes: Extraocular muscles are intact. Pupils are equal, round and reactive to light and accommodation. Ears: No lesions. Nose appeared normal. Throat: No exudate or erythema. NECK: Supple. No JVD, no carotid bruit. No lymphadenopathy or thyromegaly. LUNGS: Diminished breath sounds. Clear to auscultation. Percussion note normal. Chest symmetrical. HEART: S1, S2, no S3. No murmurs. No cyanosis or clubbing. No ascites. Pulses: Dorsalis pedis and posterior tibial pulses +1 to +2 both sides. ABDOMEN: Soft. Non-tender. Bowel sounds active. No CVA tenderness. No mass felt. EXTREMITIES: Trace edema. Full range of motion of all extremities, equal. NEUROLOGIC: No focal deficit. Cranial nerves II through XII are grossly intact. No headache, no double vision or headache. SKIN: Not dry. Intact. Turgor-normal. LYMPHATIC: No palpable lymph nodes/no lymphedema. MUSCULOSKELETAL: Normal joints with no swelling. Muscle tone is normal. LAB REVIEW: 09/28/17 04:15 09/28/17 04:15 09/28/17 04:15: Sodium 135 L, Potassium 3.6, Chloride 90 L, Carbon Dioxide 32 H , Anion Gap 16.6, BUN 33 H, Creatinine 1.10, Estimated GFR (MDRD) 64.00, BUN/ Creatinine Ratio 30.00, Glucose 195 H, Calcium 9.4, Total Bilirubin 0.8, AST 21 , ALT 28, Alkaline Phosphatase 61, Total Protein 6.9, Albumin 3.3 L, Globulin 3.6, Albumin/Globulin Ratio 0.92 09/28/17 04:15: WBC 10.51 H, RBC 4.30 L, Hgb 13.5 L, Hct 41.3 L, MCV 96.0 H, MCH 31.4 H, MCHC 32.7, RDW Coeff of Leonardo 13.0, Plt Count 284, Immature Gran % ( Auto) 0.3, Neut % (Auto) 69.6, Lymph % (Auto) 22.7, Randolph % (Auto) 6.7, Eos % ( Auto) 0.2, Baso % (Auto) 0.5, Immature Gran # (Auto) 0.0, Neut # (Auto) 7.3 H, Lymph # (Auto) 2.4, Randolph # (Auto) 0.7, Eos # (Auto) 0.0, Baso # (Auto) 0.1 ASSESSMENT: 1. LEG EDEMA 2. SHORTNESS OF BREATH IMPROVED 4. COPD 5. CONSTIPATION 6. CHRONIC KIDNEY DISEASE PLAN: 1. Lasix 40 mg p.o. daily 2. Prednisone 20 mg daily times 5 days 3. Anticipate d/c home per Dr. Ruiz 4. Keep legs elevated 5. Low salt diet 6. Followup next week 7. Stay inside Plan and coordination of the patient's care discussed in the presence of Still Operator Helper and nurse. CONDITION: Stable SCRIBED BY: JOCELINE VINSON Early Interventionist scribed while in presence of service performed by Dr. Ramirez/Lizette Latham APRN on 09/28/17 ([id number])
[2017-09-28 10:21] VITALS: BP 91/55
--- NOTE | 2017-09-28 10:38 | CM.DICTOOL ---
ADMISSION: 09/24/17 11:07 DISCHARGE: SEPTEMBER 28, 2017 DATE OF SERVICE: 09/28/17 FINAL DIAGNOSIS LEG EDEMA CHF COPD EXACERBATION HYPERTENSION DIABETES MELLITUS, TYPE 2 HYPOTHYROID BPH OBESITY CHRONIC EDEMA CHRONIC BRONCHITIS PFT: SEVERE COPD (01/2017) ECHOCARDIOGRAM: 08/2017 LVH ENLARGED RIGHT VENTRICLE LVEF 63% LAST VITALS Temp Pulse Resp BP Pulse Ox 97.5 F L 65 16 117/66 96 09/28/17 04:18 09/28/17 04:18 09/28/17 04:18 09/28/17 04:18 09/28/17 04:18 TAKE THESE MEDICATIONS AT HOME Budesonide/Formoterol Fumarate (Symbicort 160-4.5 Mcg Inhaler) 1 puff IH DAILY [facility] Last Admin: 09/28/17 08:37 Dose: 1 puff Carvedilol (Coreg) 3.125 mg PO BIDWM [facility] Last Admin: 09/28/17 08:38 Dose: 3.125 mg Furosemide (Lasix Tab) 40 mg PO QDAC [facility] Last Admin: 09/28/17 05:31 Dose: 40 mg Ipratropium/Albuterol vial NEB RTQ8H [facility] Last Admin: 09/28/17 05:11 Dose: 1 vial Levothyroxine Sodium (Synthroid) 100 mcg PO QDAC [facility] Last Admin: 09/28/17 05:32 Dose: 100 mcg Lisinopril (Zestril) 2.5 mg PO BID [facility] Last Admin: 09/28/17 08:38 Dose: 2.5 mg Metolazone (Zaroxolyn) 2.5 mg PO MOWEFR [facility] Last Admin: 09/28/17 08:38 Dose: 2.5 mg Non-Formulary Medication (Bimatoprost Opth [Lumigan]) 1 drop OP BEDTIME [facility] Last Admin: 09/27/17 20:49 Dose: 1 drop Non-Formulary Medication (Brinzolamide [Azopt]) 1 drop OP BID [facility] Last Admin: 09/28/17 08:37 Dose: 1 drop Pravastatin Sodium (Pravachol) 40 mg PO BEDTIME [facility] Last Admin: 09/27/17 20:50 Dose: 40 mg Prednisone (Prednisone) 20 mg PO DAILY WM [facility] Last Admin: 09/28/17 08:38 Dose: 20 mg FOR 5 DAYS Tamsulosin HCl (Flomax) 0.4 mg PO BEDTIME [facility] Last Admin: 09/27/17 20:50 Dose: 0.4 mg ProAir HFA 1 puff BID Last Admin: ALLERGIES No Known Allergies Allergy (Verified 02/02/17 11:58) DISCONTINUED MEDICATIONS No home medications were discontinued NEW PRESCRIPTIONS: Prednisone 20 mg take 1 daily for 5 days. Take with food SMOKING: Not Applicable DISEASE SPECIFIC EDUCATION: Steroids and risk of GI irritation Elevating legs when at rest and at night Appointment Weigh self daily LAB REVIEW: 09/28/17 04:15 09/28/17 04:15 09/28/17 04:15: Sodium 135 L, Potassium 3.6, Chloride 90 L, Carbon Dioxide 32 H , Anion Gap 16.6, BUN 33 H, Creatinine 1.10, Estimated GFR (MDRD) 64.00, BUN/ Creatinine Ratio 30.00, Glucose 195 H, Calcium 9.4, Total Bilirubin 0.8, AST 21 , ALT 28, Alkaline Phosphatase 61, Total Protein 6.9, Albumin 3.3 L, Globulin 3.6, Albumin/Globulin Ratio 0.92 09/28/17 04:15: WBC 10.51 H, RBC 4.30 L, Hgb 13.5 L, Hct 41.3 L, MCV 96.0 H, MCH 31.4 H, MCHC 32.7, RDW Coeff of Leonardo 13.0, Plt Count 284, Immature Gran % ( Auto) 0.3, Neut % (Auto) 69.6, Lymph % (Auto) 22.7, Cla[place]orne % (Auto) 6.7, Eos % ( Auto) 0.2, Baso % (Auto) 0.5, Immature Gran # (Auto) 0.0, Neut # (Auto) 7.3 H, Lymph # (Auto) 2.4, [place]orne # (Auto) 0.7, Eos # (Auto) 0.0, Baso # (Auto) 0.1 PLAN: Discharge home Diet: Heart Healthy Activity: Gradually resume as tolerated Elevate legs at night and when sitting Weigh self daily, notify physician if weight increases more than 3# overnight Continue to use nebulizer treatments at home An appointment is scheduled with Dr. Ramirez/Lizette Acuna APRN on October 05 at 9:30 am Mr. Castillo is alert and oriented x 3. He is independent with Activities of Daily Living. Mr. Castillo transfers from the bed to the chair without staff assistance. He is ambulatory to the bathroom independently. He is ambulatory in the hallway with stand by assistance of 1 staff member. Mr. Castillo does not use an assistive device with ambulation. Meal intakes are good at 100%. He is continent of bowel and bladder. Skin condition is good and free of skin breakdown. MACKENZIE RAMIREZ MD LIZETTE ACUNA APRN
--- NOTE | 2017-09-29 09:01 | PN ---
DATE OF SERVICE: 09/26/17 SUBJECTIVE: The patient is feeling well. He slept better last night. We gave him Ativan 1 mg at bedtime. His leg edema has improved and kidney function has remained stable. He states he is feeling less choked up but it is slowly improving. REVIEW OF SYSTEMS: CONSTITUTIONAL: Weakness and fatigue. No night sweats. No malaise, lethargy. No fever or chills. HEENT: Eyes: No visual changes. No eye pain. No eye discharge. ENT: No runny nose. No epistaxis. No sinus pain. No sore throat. No odynophagia. No congestion. RESPIRATORY: Shortness of breath, cough. No hemoptysis. CARDIOVASCULAR: No angina symptoms. No CHF symptoms. No atypical chest pain for CAD. No palpitations. No orthopnea. GASTROINTESTINAL: No abdominal pain. No nausea or vomiting. No diarrhea or constipation. No hematemesis. No hematochezia. GENITOURINARY: No urgency. No frequency. No dysuria. No hematuria. No obstructive symptoms. No discharge. No pain. No significant abnormal bleeding. MUSCULOSKELETAL: No musculoskeletal pain; no joint swelling. NEUROLOGICAL: No headache. No neck pain. No syncope. No seizures. No dizziness. PSYCHIATRIC: Not anxious. No depression. No suicidal thoughts. No homicidal thoughts. SKIN: No rash. No lesions. No wounds. ENDOCRINE: No unexplained weight loss. No weight gain. HEMATOLOGIC/LYMPHATIC: No anemia. No purpura. No petechiae. No prolonged or excessive bleeding. No palpable lymph nodes. PHYSICAL EXAMINATION: HEENT: Head normocephalic, atraumatic. Eyes: Extraocular muscles are intact. Pupils are equal, round and reactive to light and accommodation. Ears: No lesions. Nose appeared normal. Throat: No exudate or erythema. NECK: Supple. No JVD, no carotid bruit. No lymphadenopathy or thyromegaly. LUNGS: Diminished breath sounds bilaterally. Very faint expiratory wheeze on the right. Clear to auscultation. Percussion note normal. Chest symmetrical. HEART: S1, S2, no S3. No murmurs. No cyanosis or clubbing. No ascites. Pulses: Dorsalis pedis and posterior tibial pulses +1 to +2 both sides. ABDOMEN: Soft. Nontender. Bowel sounds active. No CVA tenderness. No mass felt. EXTREMITIES: He is down to +1 to +2 leg edema but he has wrinkling. Full range of motion of all extremities, equal. NEUROLOGIC: No focal deficit. Cranial nerves II through XII are grossly intact. No headache, no double vision or headache. SKIN: Not dry. Intact. Turgor - normal. LYMPHATIC: No palpable lymph nodes/no lymphedema. MUSCULOSKELETAL: Normal joints with no swelling. Muscle tone is normal. ASSESSMENT: 1. LEG EDEMA WHICH IS IMPROVING 2. COPD EXACERBATION 3. SHORTNESS OF BREATH WHICH IS IMPROVING PLAN: 1. We will continue daily IV Lasix and daily Zaroxolyn. 2. He is encouraged to drink fluids in moderation. 3. Keep legs elevated above the hip. 4. We will reevaluate tomorrow. TIME SPENT: More than 30 minutes. Plan and coordination of the patient's care discussed in the presence of nurse. KENTRELL
--- NOTE | 2017-09-29 09:06 | PN ---
DATE OF SERVICE: 09/27/17 SUBJECTIVE: The patient is examined and states he is doing well. Shortness of breath has improved. Leg edema again is slightly improved today. REVIEW OF SYSTEMS: CONSTITUTIONAL: No night sweats. No fatigue, malaise, lethargy. No fever or chills. HEENT: Eyes: No visual changes. No eye pain. No eye discharge. ENT: No runny nose. No epistaxis. No sinus pain. No sore throat. No odynophagia. No congestion. RESPIRATORY: Shortness of breath and cough. No hemoptysis. CARDIOVASCULAR: No angina symptoms. No CHF symptoms. No atypical chest pain for CAD. No palpitations. No orthopnea. GASTROINTESTINAL: No abdominal pain. No nausea or vomiting. No diarrhea or constipation. No hematemesis. No hematochezia. GENITOURINARY: No urgency. No frequency. No dysuria. No hematuria. No obstructive symptoms. No discharge. No pain. No significant abnormal bleeding. MUSCULOSKELETAL: Chronic leg edema. NEUROLOGICAL: No headache. No neck pain. No syncope. No seizures. No dizziness. PSYCHIATRIC: Not anxious. No depression. No suicidal thoughts. No homicidal thoughts. SKIN: No rash. No lesions. No wounds. ENDOCRINE: No unexplained weight loss. No weight gain. HEMATOLOGIC/LYMPHATIC: No anemia. No purpura. No petechiae. No prolonged or excessive bleeding. No palpable lymph nodes. PHYSICAL EXAMINATION: HEENT: Head normocephalic, atraumatic. Eyes: Extraocular muscles are intact. Pupils are equal, round and reactive to light and accommodation. Ears: No lesions. Nose appeared normal. Throat: No exudate or erythema. NECK: Supple. No JVD, no carotid bruit. No lymphadenopathy or thyromegaly. LUNGS: Diminished breath sounds bilaterally. Clear to auscultation. Percussion note normal. Chest symmetrical. HEART: S1, S2, no S3. No murmurs. No cyanosis or clubbing. No ascites. Pulses: Dorsalis pedis and posterior tibial pulses +1 to +2 both sides. ABDOMEN: Soft. Nontender. Bowel sounds active. No CVA tenderness. No mass felt. EXTREMITIES: Trace to +1 bilateral leg edema. Full range of motion of all extremities, equal. NEUROLOGIC: No focal deficit. Cranial nerves II through XII are grossly intact. No headache, no double vision or headache. SKIN: Not dry. Intact. Turgor - normal. LYMPHATIC: No palpable lymph nodes/no lymphedema. MUSCULOSKELETAL: Normal joints with no swelling. Muscle tone is normal. ASSESSMENT: 1. SHORTNESS OF BREATH 2. LEG EDEMA 3. COPD EXACERBATION 4. OBESITY 5. CORONARY ARTERY DISEASE PLAN: 1. They lost IV access so will d/c IV steroids and place him on Prednisone 20 mg p.o. b.i.d. 2. Tomorrow morning he can have Lasix 40 mg p.o. rather than IV. 3. Continue daily Zaroxolyn. 4. I have encouraged him to keep his legs elevated higher than the hips. 5. He can get up and out of bed today and walk around as needed. 6. We will plan on possible discharge tomorrow. 3. TIME SPENT: More than 30 minutes. Plan and coordination of the patient's care discussed in the presence of nurse. KENTRELL
--- NOTE | 2017-09-29 09:33 | DS ---
DATE OF SERVICE: 09/28/17 FINAL DIAGNOSIS: 1. LEG EDEMA 2. CHF 3. COPD EXACERBATION 4. HYPERTENSION 5. DIABETES MELLITUS TYPE 2 6. HYPOTHYROID 7. BPH 8. OBESITY 9. CHRONIC EDEMA 10. CHRONIC BRONCHITIS 11. PFT, SEVERE COPD (01/2017) 12. ECHOCARDIOGRAM (08/2017) 13. LVH 14. ENLARGED RIGHT VENTRICLE 15. LVEF 63% DISCHARGE INSTRUCTIONS: 1. Followup appointment with Dr. Ramirez/Lizette Latham APRN on 10/05/17 at 9:30 a.m. 2. Weigh self daily, notify physician if weight increases more than 3# overnight. 3. Continue to use nebulizer treatments at home. MEDICATIONS AT DISCHARGE: Symbicort 160-4.5 mcg one puff IH daily [facility] Coreg 3.125 mg p.o. b.i.d. with meal [facility] Lasix 40 mg p.o. q.d a.c. [facility] Ipratropium/Albuterol neb RT q.8h [facility] Synthroid 100 mcg p.o. q.d. a.c. [facility] Zestril 2.5 mg p.o. b.i.d. [facility] Zaroxolyn 2.5 mg p.o. MoWeFr [facility] Lumigan one drop OP bedtime [facility] Azopt one drop OP b.i.d. [facility] Pravachol 40 mg p.o. bedtime [facility] Prednisone 20 mg p.o. daily with meal [facility] Flomax 0.4 mg p.o. bedtime [facility] ProAir HFA one puff b.i.d. NEW PRESCRIPTIONS: Prednisone 20 mg take one daily for 5 days. Take with food. DIET INSTRUCTIONS: Heart Healthy ACTIVITY: Gradually resume as tolerated. Elevate legs at night and when sitting. SMOKING: N/A DISEASE SPECIFIC EDUCATION: Steroids and risk of GI irritation Elevate legs when at rest and at night Appointment Weigh self daily HOSPITAL COURSE: This is a white male who was a direct admit from our office. He had been experiencing worsening shortness of breath and leg edema for the past two weeks at home. When seen in the office, he was unable to hold his head up. Oxygen saturation was 89%. He was admitted. BNP was normal so this is thought to be an exacerbation of COPD with chronic leg edema. He placed on Lasix 40 mg IV daily along with Metolazone 2.5 mg p.o. daily. We started him on Solu-Cortef 125 mg IV q.8hr. He required oxygen for the first three days at 2L to keep his sat above 90%. However, for the past 24 hours he has been 96% on room air. We did do a three-step oxygen test prior to discharge. He passed this and does not meet the requirements for oxygen. Echocardiogram was done second day after admission which was normal. Chest x-ray showed no pleural effusions or vascular congestion just changes associated with severe COPD. His kidney function has remained stable despite aggressive IV diuretics. Today, BUN 33, creatinine 1.10. This is an improvement from admission. He has received IV Lasix every day but today. This morning he received Lasix 40 mg p.o. This is part of his daily medication and will resume this at home. He has been taking Zaroxolyn 2.5 mg three times a week. He will resume this when he goes home today. I will send him home on Prednisone 20 mg daily for the next 5 days and again, he will resume his normal diuretic regimen. His blood pressure has remained stable. His shortness of breath has significantly improved. His leg edema is now down to trace. He has been up and about walking in the room and is feeling much better. Information was given regarding low sodium diet. He is instructed to keep his legs elevated at home and stay inside. Will followup with him later this week. TIME SPENT: More than 60 minutes. KENTRELL
--- NOTE | 2017-09-29 10:48 | PN ---
DATE OF SERVICE: 09/25/17 SUBJECTIVE: I did stop to say hello to Mr. Castillo since Dr. Ramirez had left town already and I needed to know this patient personally since I am covering for him. This patient understood. He was admitted to the hospital because of bilateral leg edema and was short of breath. The patient was directly admitted from the office to the hospital yesterday. The patient was alert, responsive and cooperative. He is in a semi recumbent position, greater than 45 degrees. His legs are edematous. I asked Mr. Castillo if he could lay down lower than what he is now and he told me that it is hard for him to do so. His lungs have diminished breath sounds but no obvious rales. Heart is normal sinus rhythm. Abdomen nontender. Labs in the foot worker showed a borderline hemoglobin/hematocrit 14 and 49, normal WBC and normal platelet count. Carbon dioxide is a little bit elevated 33 on admission, 34 today 09/25/17. Blood sugar slightly elevated 206. The rest of the chemistries were normal. Albumin slightly below normal 3.3. Thyroid normal and free T4 normal. Vital signs at 6 p.m. 09/25/17 showed a temperature 98, pulse 76, BP 111/65, respiratory rate 20, oxygen saturation on 2L 98%. He did eat 100% of his dinner. The patient is 251 lbs, 12.2 ozs on admission. He is about the same today. Condition is stable and the patient does not appear to be in any distress. [facility]
--- NOTE | 2017-09-29 10:53 | PN ---
DATE OF SERVICE: 09/26/17 SUBJECTIVE: The patient today is alert, responsive earlier but when I walked in about 11 o' clock he was sleeping with head of the bed quite close to 90 degrees. I told the nurse to lower his head down since his head was tilted to the right. He was not dyspneic or tachypneic, asleep. His vital signs at 6 p.m. 09/26/17 showed a temperature 97.7, pulse 77, BP 110/68, respiratory rate 22, oxygen saturation 95 on 2L. He did eat 100% of his dinner. He weighs 255 lbs, 4.725 ozs. [facility]
--- NOTE | 2017-09-29 11:09 | PN ---
DATE OF SERVICE: 09/27/17 SUBJECTIVE: The patient today was alert and responsive. Vital signs at 6 p.m. showed a temperature of 97.6, pulse 72, BP 100/66, respiratory rate 12, oxygen saturation 93 on 2L. The patient was encouraged to take a deep breath several times like three in a row and breathing slowly out. He is afebrile and has a good appetite. Abdomen is nontender. Heart is normal sinus rhythm. Legs are still edematous and advised him to elevate the legs as much as possible. I did tell him that as long as he does not put his legs above his heart level that his legs would remain edematous. It would be more pronounced if he puts his legs down like sitting. He should minimize his sitting to eating as well as bathroom needs and if he is sitting, he should not sit very long and once he is standing he should be walking. When he goes back to bed he should elevate his legs above his heart. Heart is normal sinus rhythm. Abdomen nontender. Legs still edematous with pitting edema. Breath sounds are diminished but no obvious rales. Breath sounds are coarse. I did advise also if possible to put one more pillow under both feet to elevate further. KENTRELL
--- NOTE | 2017-09-29 11:42 | PN ---
DATE OF SERVICE: 09/28/17 SUBJECTIVE: The patient is alert, oriented this morning. He is not dyspneic or tachypneic. The patient was tested on three-step and his oxygen saturation was not below 90. He could not qualify for a home oxygen. He had stopped smoking years ago. I did inform him that if he would lose some pounds that it would probably help his breathing. His legs would only decrease in size if he elevates it above his heart. Today the patient is alert and the leg indeed is not as edematous as before. It is now softer. The patient had elevated his legs at least level to the heart or more. I did inform him that he needed to do that in order to minimize the swelling and once the leg swelling has resolved that he should use support hose. Vital signs at 10 o'clock this morning showed a temperature of 97.5, pulse 75, blood pressure 91/55 and respiratory rate 60 and oxygen saturation 93 on room air. The patient can go home and was discharged by [place]. The patient should see Dr. Ramirez for followup. Initial chest x-ray did not indicate any infiltrates. The patient's shortness of breath is probably a combination of his COPD plus some anxiety or fear at times when he is not able to take a good breath. The patient's lungs have diminished breath sounds, no wheezing, fairly clear. Heart is audible with good tones. Abdomen nontender. Lower extremities have less edema. The patient's BNP was less than 10. The bilateral leg edema is probably positional. Hypoalbuminemia may contribute some slightly. CONDITION: Improved. MTDD
== END 2017-09-28 13:00 | disposition home or self-care (01) | DRG 204 ==
LOC: MEDSURG A 11:07
PROVIDERS: ADMIT Internal Medicine; ATTEND Internal Medicine
DX: R06.02 Shortness of breath (principal); J44.1 Chronic obstructive pulmonary disease with (acute) exacerbation; J42 Unspecified chronic bronchitis; I50.9 Heart failure, unspecified; I10 Essential (primary) hypertension; E66.9 Obesity, unspecified; E11.9 Type 2 diabetes mellitus without complications; E03.9 Hypothyroidism, unspecified; N40.0 Benign prostatic hyperplasia without lower urinary tract symptoms; Z68.37 Body mass index [BMI] 37.0-37.9, adult
CPT/HCPCS: 36415; 80053; 81001; 82550; 82803; 83036; 83880; 84439; 84443; 84484; 85025; 93005; 93010; 94640; 94761; 97802

== ENCOUNTER 2018-06-07 15:51 | Inpatient (IN) | payer OTHER ==
[2018-06-07] MEDS ORDERED: NITROSTAT SL PRN (16:16)
[2018-06-07] MEDS ORDERED: LASIX IVP STA (16:16)
[2018-06-07] MEDS ORDERED: TYLENOL PO PRN (16:16)
[2018-06-07] MEDS ORDERED: ATROPINE SULFATE PFS IVP PRN (16:16)
[2018-06-07] MEDS ORDERED: VISTARIL INJ IM PRN (16:16)
[2018-06-07 16:51] VITALS: BMI 37.7
[2018-06-07] MEDS ORDERED: PROAIR HFA IH PRN (16:56)
[2018-06-07] MEDS: SOLU-CORTEF 250 MG IVP SCH ×2 (16:58→20:41)
[2018-06-07] MEDS: ZITHROMAX PO SCH (16:58)
[2018-06-07] MEDS: ROCEPHIN 1 GM in SODIUM CHLORIDE 50 ML IV SCH (16:58)
[2018-06-07] MEDS: COREG PO SCH (17:20)
--- NOTE | 2018-06-07 18:51 | DI ---
EXAM: Chest, two views, 06/07/2018 HISTORY: Shortness of a air COMPARISON: 09/24/2017 FINDINGS / IMPRESSION: Cardiomediastinal countours appear stable. There is no focal pulmonary conso lidation. No pleural effusion or pneumothorax. No acute cardiopulmonary process.
[2018-06-07] MEDS: PULMICORT 1 MG/2 ML NEB SCH (20:00)
[2018-06-07] MEDS: XOPENEX 1.25 MG NEB SCH (20:00)
[2018-06-07] MEDS: FLOMAX PO SCH (20:41)
[2018-06-07] MEDS: ZESTRIL PO SCH (20:41)
[2018-06-07] MEDS: ATIVAN PO SCH (20:41)
[2018-06-07] MEDS: HUMULIN R SUBCUT PRN (20:41)
[2018-06-07] MEDS: PRAVACHOL PO SCH (20:41)
[2018-06-08] MEDS: XOPENEX 1.25 MG NEB SCH ×3 (04:30→20:25)
[2018-06-08] MEDS: PULMICORT 1 MG/2 ML NEB SCH ×2 (04:30→20:25)
[2018-06-08] MEDS ORDERED: LASIX ONE (05:10)
[2018-06-08] MEDS: SOLU-CORTEF 250 MG IVP SCH ×3 (05:36→20:36)
[2018-06-08] MEDS: SYNTHROID PO SCH (05:36)
[2018-06-08] MEDS: HUMULIN R SUBCUT PRN ×4 (05:36→20:36)
[2018-06-08] MEDS ORDERED: LASIX IVP ONE (06:00)
[2018-06-08] MEDS: ZESTRIL PO SCH ×2 (08:20→20:36)
[2018-06-08] MEDS: ROCEPHIN 1 GM in SODIUM CHLORIDE 50 ML IV SCH (08:20)
[2018-06-08] MEDS: ASPIRIN EC PO SCH (08:20)
[2018-06-08] MEDS: ZYLOPRIM PO SCH (08:20)
[2018-06-08] MEDS: ZITHROMAX PO SCH (08:20)
[2018-06-08] MEDS: COREG PO SCH ×2 (08:20→16:35)
[2018-06-08] MEDS ORDERED: SYNTHROID PO SCH (09:00)
--- NOTE | 2018-06-08 09:10 | PCM.PROG ---
Attending Provider: ATTENDING PROVIDER: Dr. MACKENZIE FUENTES DATE OF SERVICE: 06/08/18 SUBJECTIVE: This 83 year old WHITE/ M was hospitalized 06/07/18 with acute pneumonia and leg edema. Patient was complaining of shortness of breath and choking. REVIEW OF SYSTEMS: CONSTITUTIONAL: No night sweats. No fatigue, malaise, lethargy. No fever or chills. HEENT: Eyes: No visual changes. No eye pain. No eye discharge. ENT: No runny nose. No epistaxis. No sinus pain. No odynophagia. No congestion. RESPIRATORY: No cough, no congestion. No hemoptysis. No shortness of breath. CARDIOVASCULAR: No angina symptoms. No CHF symptoms. No atypical chest pain for CAD. No palpitations. No orthopnea.. GASTROINTESTINAL: No abdominal pain. No nausea or vomiting. No diarrhea or constipation. No hematemesis. No hematochezia. GENITOURINARY: No urgency. No frequency. No dysuria. No hematuria. No obstructive symptoms. No discharge. No pain. No significant abnormal bleeding. MUSCULOSKELETAL: No musculoskeletal pain; no joint swelling. NEUROLOGICAL: Awake, alert, oriented to time, place and person. Talkative and happy. No headache. No neck pain. No syncope. No seizures. No dizziness. PSYCHIATRIC: Not anxious. No depression. No suicidal thoughts. No homicidal thoughts. SKIN: No rash. No lesions. No wounds. ENDOCRINE: No unexplained weight loss. No weight gain. HEMATOLOGIC/LYMPHATIC: No anemia. No purpura. No petechiae. No prolonged or excessive bleeding. No palpable lymph nodes. PHYSICAL EXAMINATION: GENERAL: The patient is awake, alert and oriented, lying in bed in no distress. VITAL SIGNS: Temperature 98.0 F, Pulse 81, Respiratory Rate 19, BP 108/61, Pulse Ox 94% HEENT: Head normocephalic, atraumatic. Eyes: Extraocular muscles are intact. Pupils are equal, round and reactive to light and accommodation. Ears: No lesions. Nose appeared normal. Throat: No exudate or erythema. NECK: Supple. No JVD, no carotid bruit. No lymphadenopathy or thyromegaly. LUNGS: Nathan few mild expiratory wheeze. Clear to auscultation. Percussion note normal. Chest symmetrical. HEART: S1, S2, no S3. No murmurs. No cyanosis or clubbing. No ascites. Pulses: Dorsalis pedis and posterior tibial pulses +1 to +2 both sides. ABDOMEN: Soft. Non-tender. Bowel sounds active. No CVA tenderness. No mass felt. EXTREMITIES: +2 pitting edema, some non-pitting. Full range of motion of all extremities, equal. NEUROLOGIC: No focal deficit. Cranial nerves II through XII are grossly intact. No headache, no double vision or headache. SKIN: Warm and dry. Intact. Turgor-normal. LYMPHATIC: No palpable lymph nodes/no lymphedema. MUSCULOSKELETAL: Normal joints with no swelling. Muscle tone is normal. LAB REVIEW: 06/08/18 05:15 06/08/18 05:15 06/08/18 05:15: Sodium 136.1, Potassium 3.93, Chloride 96.6 L, Carbon Dioxide 30.8 H, Anion Gap 12.63, BUN 18.8, Creatinine 0.94, Estimated GFR (MDRD) 77.00, BUN/Creatinine Ratio 20.00, Glucose 196.7 H D, Calcium 8.60, Total Bilirubin 0.57, AST 30.5, ALT 29.1, Alkaline Phosphatase 67.0, Total Protein 6.50, Albumin 4.01, Globulin 2.49, Albumin/Globulin Ratio 1.61 06/08/18 05:15: WBC 7.10, RBC 4.57 L, Hgb 14.5, Hct 45.8, MCV 100.2 H, MCH 31.7 H, MCHC 31.7 L, RDW Coeff of Leonardo 14.5, Plt Count 215, Neutrophils % (Manual) 79.0 H, Lymphocytes % (Manual) 18.0, Monocytes % (Manual) 3.0, Anisocytosis Not present 06/08/18 00:30: Total Creatine Kinase 80.0, Troponin I < 0.012 06/07/18 18:33: Urine Color Yellow, Urine Clarity Clear, Urine pH 5.5, Ur Specific [place] <=1.005, Urine Protein Negative, Urine Glucose (UA) Negative, Urine Ketones Negative, Urine Blood Trace-intact, Urine Nitrite Negative, Urine Bilirubin Negative, Urine Urobilinogen 0.2, Ur Leukocyte Esterase Negative, Urine Microscopic RBC 0-2, Ur Squamous Epith Cells Not present 06/07/18 16:43: Influ A Molecular Assay Negative by naat, Influ B Molecular Assay Negative by naat 06/07/18 16:41: Sodium 137.3, Potassium 3.94, Chloride 99.2, Carbon Dioxide 31.7 H, Anion Gap 10.34, BUN 15.6, Creatinine 1.01, Estimated GFR (MDRD) 71.00, BUN/Creatinine Ratio 15.44, Glucose 118.1 H, Calcium 8.68, Total Bilirubin 0.73 , AST 37.9, ALT 32.8, Alkaline Phosphatase 74.6, Total Creatine Kinase 70.0, Troponin I < 0.012, Total Protein 6.86, Albumin 4.27, Globulin 2.59, Albumin/ Globulin Ratio 1.64 06/07/18 16:41: WBC 8.08, RBC 4.52 L, Hgb 14.2, Hct 44.7, MCV 98.9 H, MCH 31.4 H , MCHC 31.8, RDW Coeff of Leonardo 14.0, Plt Count 208, Immature Gran % (Auto) 0.2, Neut % (Auto) 66.8, Lymph % (Auto) 19.4, [place] % (Auto) 8.3, Eos % (Auto) 4.8, Baso % (Auto) 0.5, Immature Gran # (Auto) 0.0, Neut # (Auto) 5.4, Lymph # (Auto ) 1.6, Young # (Auto) 0.7, Eos # (Auto) 0.4, Baso # (Auto) 0.0 06/07/18 16:23: Puncture Site Lrad, O2 Saturation 97.0, ABG pH 7.388, ABG pCO2 46.3 H, ABG pO2 88.0, ABG HCO3 27.9 H, ABG Total CO2 29 H, ABG Base Excess 3 H, Alfonzo Test +, FiO2 % 21.0 ASSESSMENT: Please see below. 1. Acute Pneumonitis/Bronchitis. 2. Cor Pulmonale 3. CHF PLAN: 1. IV Lasix 2. Elevate legs 3. Continue antibiotics, steroids and NEBS Plan and coordination of the patient's care discussed in the presence of Search Lead and nurse. CONDITION: Stable SCRIBED BY: ABY GELLER, Hair Preparer scribed while in presence of service performed by Dr. MACKENZIE FUENTES on 06/08/18 ([id number])
[2018-06-08] MEDS: PRAVACHOL PO SCH (20:36)
[2018-06-08] MEDS: ATIVAN PO SCH (20:36)
[2018-06-08] MEDS: FLOMAX PO SCH (20:36)
[2018-06-09] MEDS: XOPENEX 1.25 MG NEB SCH ×3 (04:30→19:40)
[2018-06-09] MEDS: PULMICORT 1 MG/2 ML NEB SCH ×2 (04:30→19:40)
[2018-06-09] MEDS: SOLU-CORTEF 250 MG IVP SCH (05:53)
[2018-06-09] MEDS: SYNTHROID PO SCH (05:53)
[2018-06-09] MEDS: HUMULIN R SUBCUT PRN ×3 (06:02→17:45)
[2018-06-09] MEDS ORDERED: LASIX IVP SCH (06:30)
[2018-06-09] MEDS ORDERED: ZAROXOLYN PO PRN (08:00)
[2018-06-09] MEDS ORDERED: PHENERGAN WITH CODEINE 6.25/10 MG/5 ML PO PRN (08:25)
--- NOTE | 2018-06-09 09:01 | PCM.PROG ---
Attending Provider: ATTENDING PROVIDER: Dr. MACKENZIE FUENTES DATE OF SERVICE: 06/09/18 SUBJECTIVE: This 83 year old WHITE/ M was hospitalized 06/07/18 with acute bronchitis/pneumonitis. The patient condition has improved. Coughing is much less. Leg edema is much less. REVIEW OF SYSTEMS: CONSTITUTIONAL: No night sweats. No fatigue, malaise, lethargy. No fever or chills. HEENT: Eyes: No visual changes. No eye pain. No eye discharge. ENT: No runny nose. No epistaxis. No sinus pain. No odynophagia. No congestion. RESPIRATORY: No cough, no congestion. No hemoptysis. No shortness of breath. CARDIOVASCULAR: No angina symptoms. No CHF symptoms. No atypical chest pain for CAD. No palpitations. No orthopnea.. GASTROINTESTINAL: No abdominal pain. No nausea or vomiting. No diarrhea or constipation. No hematemesis. No hematochezia. GENITOURINARY: No urgency. No frequency. No dysuria. No hematuria. No obstructive symptoms. No discharge. No pain. No significant abnormal bleeding. MUSCULOSKELETAL: No musculoskeletal pain; no joint swelling. NEUROLOGICAL: Awake, alert, oriented to time, place and person. No headache. No neck pain. No syncope. No seizures. No dizziness. PSYCHIATRIC: Not anxious. No depression. No suicidal thoughts. No homicidal thoughts. SKIN: No rash. No lesions. No wounds. ENDOCRINE: No unexplained weight loss. No weight gain. HEMATOLOGIC/LYMPHATIC: No anemia. No purpura. No petechiae. No prolonged or excessive bleeding. No palpable lymph nodes. PHYSICAL EXAMINATION: GENERAL: The patient is awake, alert and oriented to time, place and person, lying in bed in no distress. VITAL SIGNS: Temperature 96.3 F, Pulse 70, Respiratory Rate 20, BP 120/69, Pulse Ox 99% HEENT: Head normocephalic, atraumatic. Eyes: Extraocular muscles are intact. Pupils are equal, round and reactive to light and accommodation. Ears: No lesions. Nose appeared normal. Throat: No exudate or erythema. NECK: Supple. No JVD, no carotid bruit. No lymphadenopathy or thyromegaly. LUNGS: Decreased breath sounds with more air entry. Clear to auscultation. Percussion note normal. Chest symmetrical. HEART: S1, S2, no S3. No murmurs. No cyanosis or clubbing. No ascites. Pulses: Dorsalis pedis and posterior tibial pulses +1 to +2 both sides. ABDOMEN: Soft. Non-tender. Bowel sounds active. No CVA tenderness. No mass felt. EXTREMITIES: Edema is less but still +1-+2. Full range of motion of all extremities, equal. NEUROLOGIC: No focal deficit. Cranial nerves II through XII are grossly intact. No headache, no double vision or headache. SKIN: Warm and dry. Intact. Turgor-normal. LYMPHATIC: No palpable lymph nodes/no lymphedema. MUSCULOSKELETAL: Normal joints with no swelling. Muscle tone is normal. LAB REVIEW: 06/09/18 05:45 06/09/18 05:45 06/09/18 05:45: Sodium 138.4, Potassium 3.84, Chloride 96.9 L, Carbon Dioxide 32.2 H, Anion Gap 13.14, BUN 23.8 H, Creatinine 1.03, Estimated GFR (MDRD) 69.00 , BUN/Creatinine Ratio 23.10, Glucose 165.9 H, Calcium 8.65, Total Bilirubin 0.49, AST 29.8, ALT 27.8, Alkaline Phosphatase 86.7, Total Protein 6.55, Albumin 4.18, Globulin 2.37, Albumin/Globulin Ratio 1.76 06/09/18 05:45: WBC 11.24 H, RBC 4.65 L, Hgb 14.5, Hct 46.0, MCV 98.9 H, MCH 31.2 H, MCHC 31.5 L, RDW Coeff of Leonardo 13.8, Plt Count 246, Immature Gran % (Auto ) 0.3, Neut % (Auto) 79.1, Lymph % (Auto) 14.0, [place] % (Auto) 6.4, Eos % (Auto) 0.0, Baso % (Auto) 0.2, Immature Gran # (Auto) 0.0, Neut # (Auto) 8.9 H, Lymph # (Auto) 1.6, [place] # (Auto) 0.7, Eos # (Auto) 0.0, Baso # (Auto) 0.0 ASSESSMENT: Please see below. 1. Acute pneumonitis 2. Chronic lung disease 3. Cor Pulmonale 4. CHF 5. Non-compliance PLAN: 1. Continue antibiotics, steroids and NEBS. Plan and coordination of the patient's care discussed in the presence of Sticker Machine Operator and nurse. CONDITION: Improving. SCRIBED BY: Mauro REDDY scribed while in presence of service performed by Dr. MACKENZIE FUENTES on 06/09/18 ([id number])
[2018-06-09] MEDS: ZESTRIL PO SCH ×2 (09:24→20:15)
[2018-06-09] MEDS: COREG PO SCH ×2 (09:25→16:41)
[2018-06-09] MEDS: ZYLOPRIM PO SCH (09:25)
[2018-06-09] MEDS: ASPIRIN EC PO SCH (09:25)
[2018-06-09] MEDS: ZITHROMAX PO SCH (09:25)
[2018-06-09] MEDS ORDERED: LIDOCAINE HCL 1% SDV IM SCH (09:43)
[2018-06-09] MEDS: ROCEPHIN 1 GM in SODIUM CHLORIDE 50 ML IV SCH (10:13)
[2018-06-09] MEDS: ROCEPHIN IM SCH (10:21)
[2018-06-09] MEDS: LIDOCAINE HCL 1% SDV IM SCH (10:22)
[2018-06-09] MEDS: PREDNISONE PO SCH (16:42)
[2018-06-09] MEDS: ATIVAN PO SCH (20:15)
[2018-06-09] MEDS: FLOMAX PO SCH (20:15)
[2018-06-09] MEDS: PRAVACHOL PO SCH (20:15)
[2018-06-10] MEDS: PULMICORT 1 MG/2 ML NEB SCH ×2 (04:25→17:50)
[2018-06-10] MEDS: XOPENEX 1.25 MG NEB SCH ×4 (04:25→22:11)
[2018-06-10] MEDS: SYNTHROID PO SCH (05:37)
[2018-06-10] MEDS: LASIX IM SCH (05:37)
[2018-06-10] MEDS: PREDNISONE PO SCH ×3 (08:43→17:23)
[2018-06-10] MEDS: COREG PO SCH ×2 (08:44→17:23)
[2018-06-10] MEDS: ASPIRIN EC PO SCH (08:44)
[2018-06-10] MEDS: ZESTRIL PO SCH ×2 (08:44→20:16)
[2018-06-10] MEDS: ZYLOPRIM PO SCH (08:44)
[2018-06-10] MEDS ORDERED: DECADRON 4 MG/ML SDV IM STA (08:48)
[2018-06-10] MEDS: LIDOCAINE HCL 1% SDV IM SCH (08:52)
[2018-06-10] MEDS: ROCEPHIN IM SCH (08:53)
--- NOTE | 2018-06-10 09:33 | PCM.PROG ---
Attending Provider: ATTENDING PROVIDER: Dr. MACKENZIE FUENTES This patient is seen with Lizette Lathma, Nurse Practitioner. DATE OF SERVICE: 06/10/18 SUBJECTIVE: This 83 year old WHITE/ M was hospitalized 06/07/18. The patient is feeing more short of breath this morning. Wheezing is worse with more productive cough. REVIEW OF SYSTEMS: CONSTITUTIONAL: No night sweats. No fatigue, malaise, lethargy. No fever or chills. HEENT: Eyes: No visual changes. No eye pain. No eye discharge. ENT: No runny nose. No epistaxis. No sinus pain. No odynophagia. No congestion. RESPIRATORY:Cough, no congestion. No hemoptysis. Shortness of breath. CARDIOVASCULAR: No angina symptoms. No CHF symptoms. No atypical chest pain for CAD. No palpitations. No orthopnea.. GASTROINTESTINAL: No abdominal pain. No nausea or vomiting. No diarrhea or constipation. No hematemesis. No hematochezia. GENITOURINARY: No urgency. No frequency. No dysuria. No hematuria. No obstructive symptoms. No discharge. No pain. No significant abnormal bleeding. MUSCULOSKELETAL: No musculoskeletal pain; no joint swelling. NEUROLOGICAL: Awake, alert, oriented to time, place and person. No headache. No neck pain. No syncope. No seizures. No dizziness. PSYCHIATRIC: Not anxious. No depression. No suicidal thoughts. No homicidal thoughts. SKIN: No rash. No lesions. No wounds. ENDOCRINE: No unexplained weight loss. No weight gain. HEMATOLOGIC/LYMPHATIC: No anemia. No purpura. No petechiae. No prolonged or excessive bleeding. No palpable lymph nodes. PHYSICAL EXAMINATION: GENERAL: The patient is awake, alert and oriented, lying in bed in no distress. VITAL SIGNS: Temperature 97.8 F, Pulse 76, Respiratory Rate 20, BP 112/70, Pulse Ox 98% HEENT: Head normocephalic, atraumatic. Eyes: Extraocular muscles are intact. Pupils are equal, round and reactive to light and accommodation. Ears: No lesions. Nose appeared normal. Throat: No exudate or erythema. NECK: Supple. No JVD, no carotid bruit. No lymphadenopathy or thyromegaly. LUNGS: Diminished breath sounds. Bilateral expiratory wheezing and rhonchi. Clear to auscultation. Percussion note normal. Chest symmetrical. HEART: S1, S2, no S3. No murmurs. No cyanosis or clubbing. No ascites. Pulses: Dorsalis pedis and posterior tibial pulses +1 to +2 both sides. ABDOMEN: Soft. Non-tender. Bowel sounds active. No CVA tenderness. No mass felt. EXTREMITIES: +1-+2 bilateral lower extremity edema. Full range of motion of all extremities, equal. NEUROLOGIC: No focal deficit. Cranial nerves II through XII are grossly intact. No headache, no double vision or headache. SKIN: Not dry. Intact. Turgor-normal. LYMPHATIC: No palpable lymph nodes/no lymphedema. MUSCULOSKELETAL: Normal joints with no swelling. Muscle tone is normal. LAB REVIEW: 06/10/18 04:30 06/10/18 04:30 06/10/18 04:30: Sodium 138.6, Potassium 4.02, Chloride 96.7 L, Carbon Dioxide 37.2 H, Anion Gap 8.72, BUN 26.0 H, Creatinine 0.94, Estimated GFR (MDRD) 77.00 , BUN/Creatinine Ratio 27.65, Glucose 138.5 H, Calcium 8.17 L, Total Bilirubin 0.61, AST 34.9, ALT 28.2, Alkaline Phosphatase 60.9 D, Total Protein 6.67, Albumin 4.03, Globulin 2.64, Albumin/Globulin Ratio 1.52 06/10/18 04:30: WBC 8.94, RBC 4.55 L, Hgb 14.2, Hct 45.8, MCV 100.7 H, MCH 31.2 H, MCHC 31.0 L, RDW Coeff of Leonardo 14.0, Plt Count 221, Immature Gran % (Auto) 0.3 , Neut % (Auto) 73.9, Lymph % (Auto) 17.3, [place] % (Auto) 7.8, Eos % (Auto) 0.4, Baso % (Auto) 0.3, Immature Gran # (Auto) 0.0, Neut # (Auto) 6.6, Lymph # (Auto ) 1.6, [place] # (Auto) 0.7, Eos # (Auto) 0.0, Baso # (Auto) 0.0 ASSESSMENT: Please see below. 1. Acute pneumonitis 2. Chronic lung disease 3. Cor Pulmonale 4. CHF 5. Non-compliance PLAN: 1. Chest x-ray 2. Increase Prednisone 20mg PO twice a day 3. 1cc Decadron IM 4. Increase Xopenex Q 6 hours Plan and coordination of the patient's care discussed in the presence of Book Trimmer and nurse. SCRIBED BY: Mauro REDDY scribed while in presence of service performed by Dr. Fuentes/Lizette Latham APRN on 06/10/18 ([id number])
[2018-06-10] MEDS ORDERED: PREDNISONE PO STA (09:40)
--- NOTE | 2018-06-10 10:26 | DI ---
EXAM: Two views of the chest. History: Short of breath Comparison: Chest radiograph 06/07/2018 Findings: Heart size is within normal limits. No focal consolidation. No appreciable pleural fluid and no pneumothorax. No acute osseous abnormalities. Impression: No acute cardiopulmonary process
--- NOTE | 2018-06-10 11:10 | US ---
EXAM: Bilateral lower extremity venous Doppler History: Bilateral lower extremity pain and edema. Technique: Multiple sonographic images through the bilateral lower extremities were obtained. Color duplex Doppler was used to interrogate vascular flow. Findings: The bilateral common femoral, greater saphenous, profunda, superficial femoral, popliteal, peroneal, posterior tibial and anterior tibial veins demonstrate spontaneous flow with normal compre ssion and normal augmentation. There is bilateral lower extremity subcutaneous edema. Impression: 1. No sonographic evidence for deep venous thrombosis. 2. Bilateral lower extremity subcutaneous edema
--- NOTE | 2018-06-10 11:58 | HP ---
DATE OF SERVICE: 06/07/18 REASON FOR HOSPITALIZATION/HISTORY OF PRESENT ILLNESS: Started Thursday. More short of breath, nasal congestion, yellow sputum and very short of breath. 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 HEENT: Sinus drainage, no sore throat. RESPIRATORY: Cough yellow sputum, no congestion. CARDIOVASCULAR: No atypical chest pain for coronary artery disease. No angina , CHF symptoms, palpitations. Shortness of breath. GASTROINTESTINAL: No melena or abdominal pain. No GERD. GENITOURINARY: No hematuria, no prostatism, no polyuria. SHOP CLERK: No blackout, no dizziness, no headache, no double vision. MUSCULOSKELETAL: Osteoarthritis pain, no joint swelling. ENDOCRINE: No weight loss, no weight gain. SKIN: Not dry, no rash. PSYCHIATRIC: Not anxious, no depression, no suicidal thoughts, no homicidal thoughts. SOCIAL HISTORY: Marital Status: Single. Alcohol Usage: No. Tobacco Usage: Quit.. FAMILY HISTORY: Father Mother Brother 0 Sister 1 MEDICATIONS: Lasix 40mg Po daily Lisinopril 5nmg PO twice a day Flomax 0.4mg PO daily Metolazone 2.5mg PO three times a week Coreg 3.125mg PO twice a day Levothyroxine 100mg PO daily Pravastatin 40mg PO daily ProAir HFR Symbicort 160/45 Allopurinol 200mg PO daily Ativan 0.5mg QHS ALLERGIES: No known allergies PHYSICAL EXAMINATION: V/S: Pulse 88, blood pressure 132/78, temperature 99, oxygen saturation 93%. 5' 9 GENERAL APPEARANCE: Oriented times three. HEENT: Mild respiratory distress, Pallor. NECK: No JVP, no bruits. RESPIRATORY: Decreased breath sounds, crackles/rales right lobe. CARDIOVASCULAR: S1, S2, no S3, no murmurs. No cyanosis, clubbing. No ascites. GI/ABDOMEN: No tenderness. Bowel sounds are active. EXTREMITIES: +3 right lower extremity edema and +2 left lower extremity edema, pulses +1, equal. SHOP CLERK: Deep tendon reflexes, sensory, motor and gait all normal. RECTAL: Refused//PROSTATE: 9-17 (0.6) . ASSESSMENT: 1. Shortness of breath 2. Acute pneumonitis 3. Insomnia 4. Recurrent gout 5. Diabetes mellitus type 2 04/14/18 A1c (7.6) 6. Hypertension 7. CHF 8. 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 BPH 10.Hypothyroidism 11.Obesity 12.Chronic edema 13.Chronic bronchitis 14.Vitamin B deficiency 15.History of leg edema 16.Cor Pulmonale PLAN: 1. Admit 2. Routine telemetry orders 3. CBC/CMP now and daily 4. ABG on room air, STAT 5. Chest x-ray 6. Xopenex NEBS three times a day scheduled 7. Pulmicort 1mg twice a day scheduled NEB 8. Continue home medications 9. Hold Symbicort 10.Hold PO Lasix 11.Lasix 40mg IVC now and Thursday AM 12.O2 @ 1-2 liters 13.Elevate legs 14.Rocephin 1gram IV daily 15.Solu-Cortef 125mg IV Q 8 hours 16.Zithromax 500mg PO daily x 3 days 17.Rapid Flu A and B 18.Sputum culture TIME SPENT: More than 70 minutes. MTDD
[2018-06-10] MEDS: HUMULIN R SUBCUT PRN ×3 (12:16→20:16)
[2018-06-10] MEDS: ATIVAN PO SCH (20:15)
[2018-06-10] MEDS: PRAVACHOL PO SCH (20:16)
[2018-06-10] MEDS: FLOMAX PO SCH (20:16)
[2018-06-10] MEDS ORDERED: CITRATE OF MAGNESIA PO STA (20:18)
[2018-06-10] MEDS: OCEAN NASAL SPRAY NAS PRN (21:51)
[2018-06-11] MEDS: XOPENEX 1.25 MG NEB SCH ×4 (05:02→23:00)
[2018-06-11] MEDS: PULMICORT 1 MG/2 ML NEB SCH ×2 (05:02→16:50)
[2018-06-11] MEDS: LASIX IM SCH (05:38)
[2018-06-11] MEDS: SYNTHROID PO SCH (05:40)
[2018-06-11] MEDS: HUMULIN R SUBCUT PRN ×4 (05:41→20:41)
[2018-06-11] MEDS ORDERED: LASIX IVP STA (08:31)
[2018-06-11] MEDS ORDERED: CITRATE OF MAGNESIA PO STA (08:34)
--- NOTE | 2018-06-11 08:59 | PCM.PROG ---
Attending Provider: ATTENDING PROVIDER: Dr. MACKENZIE FUENTES This patient is seen with Lizette Latham, Nurse Practitioner. DATE OF SERVICE: 06/11/18 SUBJECTIVE: This 83 year old WHITE/ M was hospitalized 06/07/18. The patient is resting comfortably. Breathing is somewhat improved. Still more short of breath than usual and requiring oxygen. Did qualify for continuous O2 at home. REVIEW OF SYSTEMS: CONSTITUTIONAL: No night sweats. No fatigue, malaise, lethargy. No fever or chills. HEENT: Eyes: No visual changes. No eye pain. No eye discharge. ENT: No runny nose. No epistaxis. No sinus pain. No odynophagia. No congestion. RESPIRATORY:Cough, no congestion. No hemoptysis. Shortness of breath. CARDIOVASCULAR: No angina symptoms. No CHF symptoms. No atypical chest pain for CAD. No palpitations. No orthopnea.. GASTROINTESTINAL: No abdominal pain. No nausea or vomiting. No diarrhea or constipation. No hematemesis. No hematochezia. GENITOURINARY: No urgency. No frequency. No dysuria. No hematuria. No obstructive symptoms. No discharge. No pain. No significant abnormal bleeding. MUSCULOSKELETAL: No musculoskeletal pain; no joint swelling. NEUROLOGICAL: Awake, alert, oriented to time, place and person. No headache. No neck pain. No syncope. No seizures. No dizziness. PSYCHIATRIC: Not anxious. No depression. No suicidal thoughts. No homicidal thoughts. SKIN: No rash. No lesions. No wounds. ENDOCRINE: No unexplained weight loss. No weight gain. HEMATOLOGIC/LYMPHATIC: No anemia. No purpura. No petechiae. No prolonged or excessive bleeding. No palpable lymph nodes. PHYSICAL EXAMINATION: GENERAL: The patient is awake, alert and oriented, lying in bed in no distress. VITAL SIGNS: Temperature 97.8 F, Pulse 67, Respiratory Rate 20, BP 124/79, Pulse Ox 92% HEENT: Head normocephalic, atraumatic. Eyes: Extraocular muscles are intact. Pupils are equal, round and reactive to light and accommodation. Ears: No lesions. Nose appeared normal. Throat: No exudate or erythema. NECK: Supple. No JVD, no carotid bruit. No lymphadenopathy or thyromegaly. LUNGS: Diminished breath sounds. Clear to auscultation. Percussion note normal. Chest symmetrical. HEART: S1, S2, no S3. No murmurs. No cyanosis or clubbing. No ascites. Pulses: Dorsalis pedis and posterior tibial pulses +1 to +2 both sides. ABDOMEN: Soft. Non-tender. Bowel sounds active. No CVA tenderness. No mass felt. EXTREMITIES: +1 bilateral leg edema. Full range of motion of all extremities, equal. NEUROLOGIC: No focal deficit. Cranial nerves II through XII are grossly intact. No headache, no double vision or headache. SKIN: Not dry. Intact. Turgor-normal. LYMPHATIC: No palpable lymph nodes/no lymphedema. MUSCULOSKELETAL: Normal joints with no swelling. Muscle tone is normal. LAB REVIEW: 06/11/18 05:30 06/11/18 05:30 06/11/18 05:30: Sodium 138.2, Potassium 4.10, Chloride 93.6 L, Carbon Dioxide 39.4 H, Anion Gap 9.30, BUN 27.4 H, Creatinine 1.09, Estimated GFR (MDRD) 65.00 , BUN/Creatinine Ratio 25.13, Glucose 189.1 H, Calcium 8.29 L, Total Bilirubin 0.46, AST 40.3, ALT 39.3, Alkaline Phosphatase 67.3, Total Protein 6.44, Albumin 4.01, Globulin 2.43, Albumin/Globulin Ratio 1.65 06/11/18 05:30: WBC 8.50, RBC 4.49 L, Hgb 14.1, Hct 45.2, MCV 100.7 H, MCH 31.4 H, MCHC 31.2 L, RDW Coeff of Leonardo 13.7, Plt Count 232, Immature Gran % (Auto) 0.4 , Neut % (Auto) 74.8, Lymph % (Auto) 18.2, [place] % (Auto) 6.5, Eos % (Auto) 0.0, Baso % (Auto) 0.1, Immature Gran # (Auto) 0.0, Neut # (Auto) 6.4, Lymph # (Auto ) 1.6, [place] # (Auto) 0.6, Eos # (Auto) 0.0, Baso # (Auto) 0.0 06/10/18 08:49: Puncture Site R rad, O2 Saturation 93.0 L, ABG pH 7.391, ABG pCO2 56.4 H, ABG pO2 69.0 L, ABG HCO3 34.2 H, ABG Total CO2 36 H, ABG Base Excess 9 H, Alfonzo Test +, O2 Delivery Device Nc, Oxygen Liter Flow 2.00, FiO2 % 28.0 ASSESSMENT: Please see below. 1. Acute pneumonitis 2. Chronic lung disease 3. Cor Pulmonale 4. CHF 5. Non-compliance PLAN: 1. Half bottle Magnesium Citrate 2. Add 20mg IV Lasix 3. Continue PO Prednisone 4. NEBS Plan and coordination of the patient's care discussed in the presence of Director Heart and nurse. SCRIBED BY: ABY GELLER Crap Game Box Person scribed while in presence of service performed by Dr. Fuentes/Lizette Latham APRN on 06/11/18 ([id number])
[2018-06-11] MEDS: MIRALAX PO SCH (09:01)
[2018-06-11] MEDS: ZYLOPRIM PO SCH (09:03)
[2018-06-11] MEDS: PREDNISONE PO SCH ×2 (09:03→16:46)
[2018-06-11] MEDS: COREG PO SCH ×2 (09:04→16:46)
[2018-06-11] MEDS: ZESTRIL PO SCH ×2 (09:04→20:41)
[2018-06-11] MEDS: ASPIRIN EC PO SCH (09:04)
[2018-06-11] MEDS: LIDOCAINE HCL 1% SDV IM SCH (09:05)
[2018-06-11] MEDS: ROCEPHIN 1 GM in SODIUM CHLORIDE 50 ML IV SCH (10:03)
--- NOTE | 2018-06-11 14:04 | PN ---
DATE OF SERVICE: 06/10/18 SUBJECTIVE: The patient was seen and examined with the nurse practitioner. The patient seems to be somewhat drowsy, not much pep like what he had yesterday. Arterial blood gases showed a little rise in the pc02. pH is still normal. p02 is acceptable. Will give 1 cc Decadron and 20 mg Prednisone will be doubled up to twice a day. Will do chest x-ray. Condition is stable. No evidence of CHF. TIME SPENT: More than 30 minutes. Plan and coordination of the patient's care discussed in the presence of nurse. KENTRELL
[2018-06-11] MEDS: FLOMAX PO SCH (20:41)
[2018-06-11] MEDS: PRAVACHOL PO SCH (20:41)
[2018-06-11] MEDS: ATIVAN PO SCH (20:41)
[2018-06-12] MEDS: XOPENEX 1.25 MG NEB SCH ×4 (04:18→23:10)
[2018-06-12] MEDS: PULMICORT 1 MG/2 ML NEB SCH ×2 (04:18→17:33)
[2018-06-12] MEDS: LASIX TAB PO SCH (05:53)
[2018-06-12] MEDS: SYNTHROID PO SCH (05:53)
[2018-06-12] MEDS: HUMULIN R SUBCUT PRN ×3 (05:54→20:24)
[2018-06-12] MEDS: ZESTRIL PO SCH ×2 (08:48→20:25)
[2018-06-12] MEDS: PREDNISONE PO SCH ×2 (08:48→16:33)
[2018-06-12] MEDS: ROCEPHIN 1 GM in SODIUM CHLORIDE 50 ML IV SCH (08:48)
[2018-06-12] MEDS: ZYLOPRIM PO SCH (08:48)
[2018-06-12] MEDS: ASPIRIN EC PO SCH (08:49)
[2018-06-12] MEDS: COREG PO SCH ×2 (08:49→16:33)
[2018-06-12] MEDS: LIDOCAINE HCL 1% SDV IM SCH (08:49)
[2018-06-12] MEDS: MIRALAX PO SCH (08:49)
[2018-06-12] MEDS: PRAVACHOL PO SCH (20:25)
[2018-06-12] MEDS: FLOMAX PO SCH (20:25)
[2018-06-12] MEDS: ATIVAN PO SCH (20:25)
[2018-06-13] MEDS: PULMICORT 1 MG/2 ML NEB SCH ×2 (04:25→16:50)
[2018-06-13] MEDS: XOPENEX 1.25 MG NEB SCH ×4 (04:25→23:20)
[2018-06-13] MEDS: LASIX TAB PO SCH (05:38)
[2018-06-13] MEDS: SYNTHROID PO SCH (05:38)
[2018-06-13] MEDS: HUMULIN R SUBCUT PRN ×4 (05:53→21:07)
[2018-06-13] MEDS: MIRALAX PO SCH (08:12)
[2018-06-13] MEDS: ASPIRIN EC PO SCH (08:13)
[2018-06-13] MEDS: ZESTRIL PO SCH ×2 (08:13→21:07)
[2018-06-13] MEDS: PREDNISONE PO SCH (08:13)
[2018-06-13] MEDS: COREG PO SCH ×2 (08:13→16:39)
[2018-06-13] MEDS: ZYLOPRIM PO SCH (08:13)
[2018-06-13] MEDS ORDERED: LIDOCAINE HCL 1% SDV IM STA (08:19)
[2018-06-13] MEDS ORDERED: ROCEPHIN IM STA (08:33)
[2018-06-13] MEDS: ZAROXOLYN PO SCH (10:06)
[2018-06-13] MEDS ORDERED: LASIX IM STA (10:16)
[2018-06-13] MEDS ORDERED: LASIX ONE (10:27)
[2018-06-13] MEDS: ALDACTONE PO SCH (10:43)
--- NOTE | 2018-06-13 10:46 | CT ---
EXAM: CT chest without contrast HISTORY: Increased shortness of air COMPARISON: None TECHNIQUE: CT chest performed without intravenous contrast. Coronal and sagittal reformatted images obtained. FINDINGS: Thoracic inlet unremarkable. Heart top normal in size. No pericardial effusion. Coronar y calcifications. Mild bilateral gynecomastia. Aorta normal in caliber. Ductus diverticulum sugges nica. Mild atherosclerosis. Evaluation for lymphadenopathy limited without contrast. No lymphadenop athy identified. No acute abnormalities of the bones. Degenerative change in the spine. Central ai rway patent. Mild bibasilar atelectasis. Bilateral lower airway thickening with small associated ce ntrilobular nodularity left upper lobe, suggesting small airways infection/inflammation. Mild emphys ematous change. Granulomatous calcification. No pleural effusion. No pneumothorax. Please refer t o separate report CT abdomen pelvis regarding findings in the upper abdomen. IMPRESSION: 1. Findings suggesting small airways infection/inflammation. 2. Mild bibasilar atelectasis. 3. Mild emphysema. 4. Coronary calcifications.
--- NOTE | 2018-06-13 11:00 | CT ---
Exam. CT of abdomen pelvis without contrast History. Abdominal distension Comparison. CT 08/07/2016 Technique. Axial scans acquired at 3 mm slice thicknesses without contrast. Coronal and sagittal se quence completed FINDINGS Abdomen. Images at the level lower thorax show no pulmonary infiltrate. There is some bibasilar ate lectasis. There is no intraperitoneal free air. The liver and spleen are normal in size. Stable he patic cysts. Largest cyst right lobe liver measures 5.84 cm diameter. There is no inflammation the pancreas. No biliary duct dilatation is seen. Adrenal glands normal. No renal calcification is see n. There is no obstruction of either kidney or ureter. Bladder nondistended. The aorta is normal c aliber. Appendix is not dilated. There is moderate amount dense stool seen throughout portions of t he large bowel. There is diverticulosis of the rectosigmoid colon without evidence of diverticulitis . Pelvis. Minimal prostatic hypertrophy. No free fluid. No adenopathy. Skeletal structures. There is no osteolytic or blastic lesion involving bone. Multilevel degenerate disc disease lumbar spine. Impression 1. No bowel obstruction or acute inflammation. Appendix normal, non distended. Diverticulosis rect osigmoid colon without diverticulitis. 2. No renal calcification is seen. There is no obstruction of either kidney or ureter. Minimal lef t perinephric edema or stranding, correlate clinically regarding UTI. Bladder nondistended. 3. Stable liver cysts 4. Dense bile or sludge within the gallbladder. Tiny gallstones not excluded. No biliary duct dila tation.
[2018-06-13] MEDS: SOLU-CORTEF 250 MG IVP SCH ×2 (11:23→21:06)
[2018-06-13] MEDS ORDERED: CITRATE OF MAGNESIA PO STA (11:32)
[2018-06-13] MEDS: OCEAN NASAL SPRAY NAS PRN ×2 (13:38→16:37)
[2018-06-13] MEDS: ATIVAN PO SCH (21:07)
[2018-06-13] MEDS: PRAVACHOL PO SCH (21:07)
[2018-06-13] MEDS: FLOMAX PO SCH (21:08)
[2018-06-14] MEDS: PULMICORT 1 MG/2 ML NEB SCH ×2 (04:30→17:44)
[2018-06-14] MEDS: XOPENEX 1.25 MG NEB SCH ×4 (04:30→23:25)
[2018-06-14] MEDS: HUMULIN R SUBCUT PRN ×4 (05:45→20:56)
[2018-06-14] MEDS: SOLU-CORTEF 250 MG IVP SCH ×3 (05:45→20:57)
[2018-06-14] MEDS: SYNTHROID PO SCH (05:46)
[2018-06-14] MEDS ORDERED: CITRATE OF MAGNESIA PO STA (07:59)
[2018-06-14] MEDS: OCEAN NASAL SPRAY NAS PRN (08:17)
[2018-06-14] MEDS: ZYLOPRIM PO SCH (08:18)
[2018-06-14] MEDS: ZESTRIL PO SCH ×2 (08:18→20:57)
[2018-06-14] MEDS: COREG PO SCH ×2 (08:18→17:04)
[2018-06-14] MEDS: ASPIRIN EC PO SCH (08:18)
[2018-06-14] MEDS: ALDACTONE PO SCH (08:18)
[2018-06-14] MEDS: ZAROXOLYN PO SCH (08:18)
[2018-06-14] MEDS: MIRALAX PO SCH (08:19)
--- NOTE | 2018-06-14 09:13 | PCM.PROG ---
Attending Provider: ATTENDING PROVIDER: Dr. MACKENZIE FUENTES This patient is seen with Lizette Latham, Nurse Practitioner. DATE OF SERVICE: 06/14/18 SUBJECTIVE: This 83 year old WHITE/ M was hospitalized 06/07/18. The patient is sitting in chair resting comfortably. Breathing seems to have improved. Kidney function slightly elevated due to aggressive diuretic therapy. He had two bowel movements yesterday. REVIEW OF SYSTEMS: CONSTITUTIONAL: Weakness. No night sweats. No fatigue, malaise, lethargy. No fever or chills. HEENT: Eyes: No visual changes. No eye pain. No eye discharge. ENT: No runny nose. No epistaxis. No sinus pain. No odynophagia. No congestion. RESPIRATORY: Cough. No hemoptysis. Shortness of breath. CARDIOVASCULAR: No angina symptoms. No CHF symptoms. No atypical chest pain for CAD. No palpitations. No orthopnea.. GASTROINTESTINAL: No abdominal pain. No nausea or vomiting. No diarrhea or constipation. No hematemesis. No hematochezia. GENITOURINARY: No urgency. No frequency. No dysuria. No hematuria. No obstructive symptoms. No discharge. No pain. No significant abnormal bleeding. MUSCULOSKELETAL: No musculoskeletal pain; no joint swelling. NEUROLOGICAL: Awake, alert, oriented to time, place and person. No headache. No neck pain. No syncope. No seizures. No dizziness. PSYCHIATRIC: Not anxious. No depression. No suicidal thoughts. No homicidal thoughts. SKIN: No rash. No lesions. No wounds. ENDOCRINE: No unexplained weight loss. No weight gain. HEMATOLOGIC/LYMPHATIC: No anemia. No purpura. No petechiae. No prolonged or excessive bleeding. No palpable lymph nodes. PHYSICAL EXAMINATION: GENERAL: The patient is awake, alert and oriented, sitting in chair in no distress. VITAL SIGNS: Temperature 97.4 F, Pulse 83, Respiratory Rate 26, BP 130/88, Pulse Ox 92% HEENT: Head normocephalic, atraumatic. Eyes: Extraocular muscles are intact. Pupils are equal, round and reactive to light and accommodation. Ears: No lesions. Nose appeared normal. Throat: No exudate or erythema. NECK: Supple. No JVD, no carotid bruit. No lymphadenopathy or thyromegaly. LUNGS: Diminished breath sounds. Clear to auscultation. Percussion note normal. Chest symmetrical. HEART: S1, S2, no S3. No murmurs. No cyanosis or clubbing. No ascites. Pulses: Dorsalis pedis and posterior tibial pulses +1 to +2 both sides. ABDOMEN: Abdominal distention improved. Soft. Non-tender. Bowel sounds active. No CVA tenderness. No mass felt. EXTREMITIES: Trace leg edema. Full range of motion of all extremities, equal. NEUROLOGIC: No focal deficit. Cranial nerves II through XII are grossly intact. No headache, no double vision or headache. SKIN: Not dry. Intact. Turgor-normal. LYMPHATIC: No palpable lymph nodes/no lymphedema. MUSCULOSKELETAL: Normal joints with no swelling. Muscle tone is normal. LAB REVIEW: 06/14/18 05:00 06/14/18 05:00 06/14/18 05:00: Sodium 136.7, Potassium 4.15, Chloride 88.8 L, Carbon Dioxide 41.2 H*, Anion Gap 10.85, BUN 40.4 H, Creatinine 1.14 H, Estimated GFR (MDRD) 61.00, BUN/Creatinine Ratio 35.43, Glucose 183.9 H, Calcium 8.74, Total Bilirubin 0.73, AST 39.2, ALT 45.0, Alkaline Phosphatase 62.3, Total Protein 6.56, Albumin 3.97, Globulin 2.59, Albumin/Globulin Ratio 1.53 06/14/18 05:00: WBC 10.73 H, RBC 4.71, Hgb 14.8, Hct 46.6, MCV 98.9 H, MCH 31.4 H, MCHC 31.8, RDW Coeff of Leonardo 13.5, Plt Count 252, Immature Gran % (Auto) 0.3, Neut % (Auto) 72.9, Lymph % (Auto) 20.5, [place] % (Auto) 6.2, Eos % (Auto) 0.0, Baso % (Auto) 0.1, Immature Gran # (Auto) 0.0, Neut # (Auto) 7.8 H, Lymph # ( Auto) 2.2, [place] # (Auto) 0.7, Eos # (Auto) 0.0, Baso # (Auto) 0.0 06/13/18 10:35: Ammonia 32.7 H 06/13/18 09:56: Puncture Site Rrad, O2 Saturation 94.0 L, ABG pH 7.487 H, ABG pCO2 47.9 H, ABG pO2 68.0 L, ABG HCO3 36.3 H, ABG Total CO2 38 H, ABG Base Excess 13 H, Alfonzo Test +, O2 Delivery Device Nc, Oxygen Liter Flow 2.00 ASSESSMENT: 1. Acute pneumonitis 2. Chronic lung disease 3. Cor Pulmonale 4. CHF 5. Non-compliance PLAN: 1. Continue IV steroids and diuretics. 2. Hold Lasix. 3. Magnesium Citrate. Plan and coordination of the patient's care discussed in the presence of Acoustical Engineer and nurse. CONDITION: Stable SCRIBED BY: JOCELINE VINSON Medical Tech scribed while in presence of service performed by Dr. Fuentes/Lizette Latham APRN on 06/14/18 (0307)
--- NOTE | 2018-06-14 09:26 | PN ---
DATE OF SERVICE: 06/11/18 SUBJECTIVE: The patient was seen and examined with the nurse practitioner. The patient's condition is stabilizing with some improvement in his respiratory status, not much since yesterday. He is feeling somewhat fatigued. Will continue nebs, steroids and antibiotics. Pedal edema is much less. TIME SPENT: More than 30 minutes. Plan and coordination of the patient's care discussed in the presence of nurse. KENTRELL
[2018-06-14] MEDS: ATIVAN PO SCH (20:57)
[2018-06-14] MEDS: FLOMAX PO SCH (20:57)
[2018-06-14] MEDS: PRAVACHOL PO SCH (20:57)
[2018-06-15] MEDS: XOPENEX 1.25 MG NEB SCH ×2 (04:30→11:09)
[2018-06-15] MEDS: PULMICORT 1 MG/2 ML NEB SCH (04:30)
[2018-06-15] MEDS: SOLU-CORTEF 250 MG IVP SCH ×2 (05:39→12:54)
[2018-06-15] MEDS: SYNTHROID PO SCH (05:39)
[2018-06-15] MEDS: HUMULIN R SUBCUT PRN (05:39)
[2018-06-15] MEDS ORDERED: LASIX IVP STA (08:20)
[2018-06-15] MEDS: ZESTRIL PO SCH (08:25)
[2018-06-15] MEDS: ASPIRIN EC PO SCH (08:25)
[2018-06-15] MEDS: MIRALAX PO SCH (08:25)
[2018-06-15] MEDS: COREG PO SCH (08:26)
[2018-06-15] MEDS: ALDACTONE PO SCH (08:26)
[2018-06-15] MEDS: ZYLOPRIM PO SCH (08:26)
[2018-06-15] MEDS ORDERED: KEFLEX PO SCH (09:00)
--- NOTE | 2018-06-15 09:24 | PCM.PROG ---
Attending Provider: ATTENDING PROVIDER: Dr. MACKENZIE FUENTES This patient is seen with Lizette Latham, Nurse Practitioner. DATE OF SERVICE: 06/15/18 SUBJECTIVE: This 83 year old WHITE/ M was hospitalized 06/07/18. The patient is sitting in chair resting comfortably. He had less shortness of breath yesterday afternoon. This morning he is still somewhat drowsy. He didn't have much output yesterday. Weight had stayed the same. REVIEW OF SYSTEMS: CONSTITUTIONAL: Positive for weakness and fatigue. No night sweats. No malaise, lethargy. No fever or chills. HEENT: Eyes: No visual changes. No eye pain. No eye discharge. ENT: No runny nose. No epistaxis. No sinus pain. No odynophagia. No congestion. RESPIRATORY: Positive for cough. No hemoptysis. No shortness of breath. CARDIOVASCULAR: No angina symptoms. No CHF symptoms. No atypical chest pain for CAD. No palpitations. No orthopnea.. GASTROINTESTINAL: No abdominal pain. No nausea or vomiting. No diarrhea or constipation. No hematemesis. No hematochezia. GENITOURINARY: No urgency. No frequency. No dysuria. No hematuria. No obstructive symptoms. No discharge. No pain. No significant abnormal bleeding. MUSCULOSKELETAL: No musculoskeletal pain; no joint swelling. NEUROLOGICAL: Awake, alert, oriented to time, place and person. No headache. No neck pain. No syncope. No seizures. No dizziness. PSYCHIATRIC: Not anxious. No depression. No suicidal thoughts. No homicidal thoughts. SKIN: No rash. No lesions. No wounds. ENDOCRINE: No unexplained weight loss. No weight gain. HEMATOLOGIC/LYMPHATIC: No anemia. No purpura. No petechiae. No prolonged or excessive bleeding. No palpable lymph nodes. PHYSICAL EXAMINATION: GENERAL: The patient is awake, alert and oriented, sitting in chair in no distress. VITAL SIGNS: Temperature 97.8 F, Pulse 73, Respiratory Rate 23, BP 111/64, Pulse Ox 92% HEENT: Head normocephalic, atraumatic. Eyes: Extraocular muscles are intact. Pupils are equal, round and reactive to light and accommodation. Ears: No lesions. Nose appeared normal. Throat: No exudate or erythema. NECK: Supple. No JVD, no carotid bruit. No lymphadenopathy or thyromegaly. LUNGS: Diminished breath sounds. Bilateral rub. Clear to auscultation. Percussion note normal. Chest symmetrical. HEART: S1, S2, no S3. No murmurs. No cyanosis or clubbing. No ascites. Pulses: Dorsalis pedis and posterior tibial pulses +1 to +2 both sides. ABDOMEN: Soft. Non-tender. Bowel sounds active. No CVA tenderness. No mass felt. EXTREMITIES: +1 bilateral leg edema. Full range of motion of all extremities, equal. NEUROLOGIC: No focal deficit. Cranial nerves II through XII are grossly intact. No headache, no double vision or headache. SKIN: Not dry. Intact. Turgor-normal. LYMPHATIC: No palpable lymph nodes/no lymphedema. MUSCULOSKELETAL: Normal joints with no swelling. Muscle tone is normal. LAB REVIEW: 06/15/18 04:46 06/15/18 04:46 06/15/18 04:46: Sodium 133.7 L, Potassium 3.86, Chloride 89.0 L, Carbon Dioxide 39.0 H, Anion Gap 9.56, BUN 39.9 H, Creatinine 1.12 H, Estimated GFR (MDRD) 63.00, BUN/Creatinine Ratio 35.62, Glucose 216.6 H, Calcium 8.69, Total Bilirubin 1.16, AST 31.8, ALT 41.9, Alkaline Phosphatase 63.6, Total Protein 6.63, Albumin 4.04, Globulin 2.59, Albumin/Globulin Ratio 1.55 06/15/18 04:46: WBC 10.71 H, RBC 4.64 L, Hgb 14.9, Hct 45.4, MCV 97.8 H, MCH 32.1 H, MCHC 32.8, RDW Coeff of Leonardo 13.5, Plt Count 272, Immature Gran % (Auto) 0.3, Neut % (Auto) 73.5, Lymph % (Auto) 20.9, [place] % (Auto) 5.2, Eos % (Auto) 0.0, Baso % (Auto) 0.1, Immature Gran # (Auto) 0.0, Neut # (Auto) 7.9 H, Lymph # (Auto) 2.2, [place] # (Auto) 0.6, Eos # (Auto) 0.0, Baso # (Auto) 0.0 ASSESSMENT: 1. Acute pneumonitis 2. Chronic lung disease 3. Cor Pulmonale 4. Generalized weakness 5. CHF 6. Non-compliance PLAN: 1. Evaluate for PT/OT. 2. Keflex 500 mg p.o. t.i.d. 3. Lasix 20 mg IV one time dose. 4. Admit to swing bed. 5. T4 and TSH if not done. Plan and coordination of the patient's care discussed in the presence of Plush Weaver and nurse. CONDITION: Stable SCRIBED BY: JOCELINE VINSON Physical Aerodynamicist scribed while in presence of service performed by Dr. Fuentes/Lizette Latham APRN on 06/15/18 (0300)
--- NOTE | 2018-06-15 10:02 | PN ---
DATE OF SERVICE: 06/13/18 SUBJECTIVE: The patient is examined. He is sitting up in his chair. His shortness of breath is not any better today and he states that he isn't feeling well. He looks as if he is not feeling well. He is in mild respiratory distress. He is not talking , not near as alert. He does have some abdominal distention, it is not firm or tympanic in nature so I'm going to order a CT of the abdomen and pelvis along with a CT of chest. We are going to move him to the unit for closer evaluation. REVIEW OF SYSTEMS: CONSTITUTIONAL: No night sweats. Fatigue. No fever or chills. Weakness. HEENT: Eyes: No visual changes. No eye pain. No eye discharge. ENT: No runny nose. No epistaxis. No sinus pain. No sore throat. No odynophagia. No congestion. RESPIRATORY: Cough, no congestion. No hemoptysis.Shortness of breath. CARDIOVASCULAR: No angina symptoms. No CHF symptoms. No atypical chest pain for CAD. No palpitations. No PND. No orthopnea. GASTROINTESTINAL: Abdominal distention. No nausea or vomiting. No diarrhea or constipation. No hematemesis. No hematochezia. GENITOURINARY: No urgency. No frequency. No dysuria. No hematuria. No obstructive symptoms. No discharge. No pain. No significant abnormal bleeding. MUSCULOSKELETAL: No musculoskeletal pain; no joint swelling. NEUROLOGICAL: No headache. No neck pain. No syncope. No seizures. No dizziness. PSYCHIATRIC: Not anxious. No depression. No suicidal thoughts. No homicidal thoughts. SKIN: No rash. No lesions. No wounds. ENDOCRINE: No unexplained weight loss. No weight gain. HEMATOLOGIC/LYMPHATIC: No anemia. No purpura. No petechiae. No prolonged or excessive bleeding. No palpable lymph nodes. PHYSICAL EXAMINATION: GENERAL: The patient is alert but visibly tired. Mild distress. VITAL SIGNS: Temperature 98.9, heart rate 90, respiratory rate 26, blood pressure 139/81 and pulse ox 92% on 2 liters. Weight shows one pound weight gain from yesterday. He has been eating well. HEENT: Head normocephalic, atraumatic. Eyes: Extraocular muscles are intact. Pupils are equal, round and reactive to light and accommodation. Ears: No lesions. Nose appeared normal. Throat: No exudate or erythema. NECK: Supple. No JVD, no carotid bruit. No lymphadenopathy or thyromegaly. LUNGS: Decreased breath sounds with very little air movement. Clear to auscultation. Percussion note normal. Chest symmetrical. HEART: S1, S2, no S3. No murmurs. No cyanosis or clubbing. No ascites. Pulses: Dorsalis pedis and posterior tibial pulses +1 to +2 bilaterally. ABDOMEN: Soft. Nontender. Bowel sounds active. No CVA tenderness. No mass felt. Distention. Tympanic sounds more so on the left. EXTREMITIES: Leg edema is improved with trace bilateral lower extremities. Full range of motion of all extremities, equal. NEUROLOGIC: No focal deficit. Cranial nerves II through XII are grossly intact. No headache, no double vision or headache. SKIN: Not dry. Intact. Turgor - normal. LYMPHATIC: No palpable lymph nodes/no lymphedema. MUSCULOSKELETAL: Normal joints with no swelling. Muscle tone is normal. LABS: Sodium 138, potassium 3.9, BUN 30, creatinine 1.14, AST 38, ALT 46, Alkaline phosphatase was 67, total protein 6.8, Albumin 4.1, globulin 2.6 ASSESSMENT: 1. Worsening shortness of breath 2. COPD 3. Abdominal distention 4. History of CHF 5. Chronic kidney disease PLAN: 1. CT chest, abdomen and pelvis without 2. Zaroxolyn 2.5mg PO daily 3. Start Aldactone 25mg PO daily 4. Extra Lasix 20mg IM 5. Move to special care unit 6. ABG done now 7. The patient is a DNR We will reevaluated his situation as condition is guarded. TIME SPENT: More than 30 minutes. Plan and coordination of the patient's care discussed in the presence of nurse. KENTRELL
[2018-06-15 13:19] VITALS: BP 100/59; TEMP 97.7
--- NOTE | 2018-06-15 13:32 | RS.PTINEVL ---
Subjective - Patient information Date of Evaluation: 06/15/18 Date of Arrival on Unit: 06/07/18 Admitted From:: Home Diagnosis: acute pneumonitis, chronic lung disease, Usual Living Arrangement: significant other Living Arrangement Comments: Lives with significant other. Home Environment: House, Stairs (few), Rail Medical History: Hypertension, Diabetes, CHF, Arthritis (gout,OA) Medical History Comments:: BPH, cor pulmonale, hypothyroidism, chronic edema, vitamin B deficiency. LATEX ALLERGY?: No Medications: see chart Subjective Information/ Patient Comments:: pt states that he doesn't know that he will make it this time regarding going home after hospital. - Level of function Prior to this admission, the patient could do the following:: Independent Selfcare, Independent Ambulation Abilities prior to this admission: pt amb short distances due to SOA. Current Level of Function: Partially Dependent Current Equipment Used at Home: GLUCOMETER IS FRIENDS, NEBULIZER Interventions - Objective Patient Orientation: Person, Place Current Interventions: Oxygen (2 liters O2), Telemetry Observation: pt with 2+ pitting edema BLE Range of Motion - ROM Right Upper Extremity AROM: WFL's Left Upper Extremity AROM: WFL's Right Lower Extremity AROM: WFL's Left Lower Extremity AROM: WFL's Muscle Strength - Muscle Strength Right Upper Extremity Strength: Mild Weakness (shld flex 3+/5, elbow flex/ext 4- /5, decreased project development director strength) Left Upper Extremity Strength: Mild Weakness (shld flex 3+/5, elbow flex/ext 4-/ 5, decreased project development director strength) Right Lower Extremity Strength: Mild Weakness (hip flex 4-/5, knee flex/ext 4/5 , ankle Df/PF 4/5) Left Lower Extremity Strength: Mild Weakness (hip flex 4-/5, knee flex/ext 4/5, ankle Df/PF 4/5) Sensation - Sensation Right Upper Extremity Sensation: Intact/Normal Left Upper Extremity Sensation: Intact/Normal Right Lower Extremity Sensation: Intact/Normal Left Lower Extremity Sensation: Intact/Normal Palpation Palpation Findings: Tenderness (BLE) Balance - Sitting Balance and Reactions Static Sitting Balance: Fair Dynamic Sitting Balance: Poor Sitting Equilibrium Reactions: Delayed Left, Delayed Right Sitting Protective Reactions: Delayed Left, Delayed Right - Standing Balance and Reactions Static Standing Balance: Poor Dynamic Standing Balance: Poor Standing Equilibrium Reactions: Delayed Left, Delayed Right Standing Protective Reactions: Delayed Left, Delayed Right Functional Mobility - Bed Mobility Comments:: pt seen sitting up in chair. - Transfers Sit to Stand: Min Assist Stand to Sit: Min Assist - Safety Awareness Safety Awareness: Poor BOBY INDEX SCORE: n/a Ambulation - Ambulation Assistive Device Used: Rolling Walker Orthotic/Prosthetic Device: No Distance: 25ft Assistance needed with Ambulation: Min Assist Gait Deviations: Forward posture, Short stride, Deviates from path Ambulation Comments: pt amb with O2 Factors Affecting Ambulation: Decreased Balance, Breathing/O2 Saturation, Weakness, Decreased Safety, Limited Endurance Treatment time - Time with patient Length of Evaluation: 21 Total treatment time: 24 Patient Education - Education Patient Education: Activity Modification, Education of Plan of Care Teaching Recipient: Patient Teaching Methods: Discussion Comments: discussion with patient regarding POC as well as importance of participating with PT. Assessment - Assessment Problem List:: Decreased level of function, Requires training/education, Decreased safety/Risk of falls, Weakness Rehab Potential: Fair Further Therapy Indicated?: Yes Candidate for Swing Bed for Therapy Services?: pt may be a candidate for swing bed for therapy Evaluation Complexity: HISTORY: Medium (CHF, DM, HTN, gout, OA, pneumonitis), EXAM OF BODY SYSTEMS: Medium (strength, endurance, gait, transfers, SOA, balance ), CLINICAL PRESENTATION: Medium (evolving), CLINICAL DECISION MAKING: Medium Short Term Goals GOAL #1: pt demonstrate independence with rolling and bridging in bed Goal to be met by: 06/18/18 GOAL #2: Transfer sup to/from sit min x 1 Goal to be met by: 06/18/18 GOAL #3: Sit to/from stand CGA Goal to be met by: 06/18/18 GOAL #4: pt amb 75ft with RWX with CGA with O2 with no LOB Goal to be met by: 06/18/18 Field Training Agent Goals GOAL #1: pt transfer sup to/from sit CGA Goal to be met by: 06/25/18 GOAL #2: Sit to/from stand SBA Goal to be met by: 06/25/18 GOAL #3: pt amb functional household distances with SBA with RWX Goal to be met by: 06/25/18 Plan Plan of Care: Therapeutic EX, Therapeutic Activity Other:: gait training Frequency of Treatment: 1-2 X day, as tolerated Duration of Treatment: 2 Weeks Anticipated Discharge Destination: Home Treatment Diagnosis (ICD 10 Codes): R 26.2 difficulty walking. M62.81 general weakness. R26.2 balance impaired Has the Physician been added for Co-signature?: Yes
--- NOTE | 2018-06-17 11:23 | DS ---
DATE OF SERVICE: 06/15/18 FINAL DIAGNOSIS: 1. Acute shortness of breath 2. Acute pneumonitis 3. COPD with exacerbation 4. Acute renal failure 5. Chronic kidney disease 6. CHF 7. Chronic leg edema LAST VITALS: Temperature 97.7, pulse 74, blood pressure 100/59, respiratory rate 22 and oxygen saturation 90%. DISCHARGE INSTRUCTIONS: Discharge to swing bed. MEDICATIONS AT DISCHARGE: Flomax 0.4mg PO bedtime Coreg 3.125mg PO twice a day Pravachol 40mg PO bedtime Zaroxolyn 2.5mg PO MOWEFR PRN Zestril 5mg PO twice a day Iprat-Albuterol 3ml IH twice a day Lasix 40mg PO daily Levothyroxine 100mcg PO daily Symbicort 160-1.5mcg one puff INH daily Allopurinol 200mg PO daily ProAir 1 puff IG Q 4-6 hours PRN Ativan 0.5mg PO bedtime DIET INSTRUCTIONS: As tolerated ACTIVITY: As tolerated SMOKING: Former smoker DISEASE SPECIFIC EDUCATION: Swing bed Medications HOSPITAL COURSE: This is an 83 year old white male who presented to the office complaining of shortness of breath. He had been coughing for the past several days. His oxygen saturation was at 90%. He was unable to carry on a conversation without becoming extremely short of breath. He had to stop while speaking. He does have a history of CHF. He had severe +3 bilateral leg edema. He also has a history of COPD. He was a direct admit from our office on 06/07/18. We started him on Rocephin 1gram IV daily along with Zithromax 500mg PO daily for three days, Solu -Cortef 125mg IV Q 8 hours. Chest x-ray revealed changes associated with acute pneumonitis and bronchitis, no actual pneumonia. IV Lasix 40mg for the two days to help with the leg edema and this did improved. Kidney function was slightly elevated on admission showing dehydration. He does also have a history of chronic kidney disease. Over the course of the first three days his breathing improved with IV steroids, we weaned him off and placed him on PO Prednisone. His leg edema did improved and he was keeping his legs elevated. Then after weaning off IV steroids he started developing extreme weakness, worsening shortness of breath. EKG venous scan was done and all were negative. No signs of PE. Repeat chest x-ray showed no acute changes. Repeat ABG's were unchanged but he was clinically and visible in mild respiratory distress. We then moved him to the special care unit. He did at that point on Thursday have some abdominal distention which I felt that he was developing ascites. We started him on Aldactone 25mg PO daily and gave him extra Lasix 40mg IV. He also had not had a bowel movement. I ordered Magnesium Citrate. In the next 24 hours he slightly improved. he started that his abdominal distention did feel somewhat better. His ammonia level was slightly elevated at 32. He was just not talkative, not himself, increased drowsiness. He had very little improvement over those following two days. We also restarted his IV steroids on Thursday at 125mg of Solu-Cortef Q 8 hours. He has been slowly making some improvement although he is very short of breath with any sort of exertion like trying to go the bathroom. We made the decision and we thought that he would be a candidate for swing bed admission to undergo physical therapy. We will continue IV steroids and have a PT/OT consult. We will be discharged to swing bed. TIME SPENT: More than 60 minutes. KENTRELL
--- NOTE | 2018-06-17 14:24 | PN ---
DATE OF SERVICE: 06/14/18 SUBJECTIVE: The patient says he is feeling somewhat better. The fullness in the abdomen is much less. the patient has been on aggressive diuretic therapy. She has generalized edema likely from steroid therapy, inactivity and fluid retention. CT scan did not show any ascites or any acute findings. No intestinal obstruction or pancreatitis, et cetera. No bowel obstruction. The patient's condition is improving. Possibly the patient has fluid overload with worsening of his respiratory status. He is already compromised with alot of other factors. CONDITION: Stable. TIME SPENT: More than 30 minutes. Plan and coordination of the patient's care discussed in the presence of nurse. KENTRELL
--- NOTE | 2018-06-17 14:36 | PN ---
DATE OF SERVICE: 06/15/18 SUBJECTIVE: The patient is doing better. His congestion seems to be much less. He is breathing somewhat better. The oxygen saturation more than 90%. PHYSICAL EXAMINATION: HEENT: Head normocephalic, atraumatic. Eyes: Extraocular muscles are intact. Pupils are equal, round and reactive to light and accommodation. Ears: No lesions. Nose appeared normal. Throat: No exudate or erythema. NECK: Supple. No JVD, no carotid bruit. No lymphadenopathy or thyromegaly. LUNGS: Decreased breath sounds but clear to auscultation. Percussion note normal. Chest symmetrical. HEART: S1, S2, no S3. No murmurs. No cyanosis or clubbing. No ascites. Pulses: Dorsalis pedis and posterior tibial pulses +1 to +2 bilaterally. ABDOMEN: Soft. Nontender. Bowel sounds active. No CVA tenderness. No mass felt. EXTREMITIES: No edema. Full range of motion of all extremities, equal. NEUROLOGIC: No focal deficit. Cranial nerves II through XII are grossly intact. No headache, no double vision or headache. SKIN: Not dry. Intact. Turgor - normal. LYMPHATIC: No palpable lymph nodes/no lymphedema. MUSCULOSKELETAL: Normal joints with no swelling. Muscle tone is normal. CONDITION: Stable TIME SPENT: More than 30 minutes. Plan and coordination of the patient's care discussed in the presence of nurse. KENTRELL
--- NOTE | 2018-06-17 14:47 | PN ---
CODING FOR BILLING 06/07/18 ADMISSION DAY LEVEL 5 06/08/18 INTERMEDIATE 06/09/18 INTERMEDIATE 06/10/18 INTERMEDIATE 06/11/18 INTERMEDIATE 06/12/18 INTERMEDIATE 06/13/18 INTERMEDIATE 06/14/18 INTERMEDIATE 06/15/18 DISCHARGE FROM ACUTE AND ADMISSION TO SWING BED ON 06/15 [facility]
== END 2018-06-15 13:00 | disposition swing bed (61) | DRG 194 ==
LOC: MEDSURG B 15:51 → SCU 06-13 10:32
PROVIDERS: ADMIT Internal Medicine; ATTEND Internal Medicine
DX: J18.9 Pneumonia, unspecified organism (principal); J44.1 Chronic obstructive pulmonary disease with (acute) exacerbation; N17.9 Acute kidney failure, unspecified; N18.9 Chronic kidney disease, unspecified; I50.9 Heart failure, unspecified; I27.81 Cor pulmonale (chronic); I10 Essential (primary) hypertension; G47.00 Insomnia, unspecified; N40.0 Benign prostatic hyperplasia without lower urinary tract symptoms; E11.9 Type 2 diabetes mellitus without complications; E86.0 Dehydration; E03.9 Hypothyroidism, unspecified; E53.9 Vitamin B deficiency, unspecified; R60.0 Localized edema; R09.81 Nasal congestion; R14.0 Abdominal distension (gaseous); Z91.19 Patient's noncompliance with other medical treatment and regimen
CPT/HCPCS: 36415; 80053; 81001; 82140; 82550; 82803; 82962; 84439; 84443; 84484; 85007; 85025; 87070; 87502; 93005; 93010; 94640; 94761

== ENCOUNTER 2018-06-15 13:09 | Inpatient (IN) ==
[2018-06-15 13:55] VITALS: BMI 35.4
[2018-06-15] MEDS ORDERED: TYLENOL PO PRN (14:06)
[2018-06-15] MEDS ORDERED: PHENERGAN WITH CODEINE 6.25/10 MG/5 ML PO PRN (14:08)
[2018-06-15] MEDS ORDERED: VISTARIL PO PRN (14:10)
[2018-06-15] MEDS ORDERED: OCEAN NASAL SPRAY NAS PRN (14:18)
[2018-06-15] MEDS ORDERED: VISTARIL INJ IM PRN (14:22)
[2018-06-15] MEDS: KEFLEX PO SCH ×2 (14:36→20:34)
--- NOTE | 2018-06-15 15:11 | RS.PTINEVL ---
Subjective - Patient information Date of Evaluation: 06/15/18 Date of Arrival on Unit: 06/15/18 Admitted From:: In-House Transfer (transfer to swing bed) Diagnosis: acute pneumonitis, chronic lung disease, muscle weakness Usual Living Arrangement: partner/ significant other Living Arrangement Comments: lives with significant other Home Environment: House, Stairs (few) Medical History: Hypertension, Diabetes, CHF, Arthritis (gout, OA) Medical History Comments:: cor pulmonale, BPH, chronic edema, vit B def, hypothyroidism LATEX ALLERGY?: No Medications: see chart Subjective Information/ Patient Comments:: pt states he will try to walk this afternoon, states he feels he is "breathing a little deeper this afternoon" - Level of function Prior to this admission, the patient could do the following:: Independent Selfcare, Independent Ambulation (short distances due to SOA, however did not use O2 at home) Current Level of Function: Partially Dependent Current Equipment Used at Home: Glucometer is a friends that he uses. Nebulizer Interventions - Objective Patient Orientation: Person, Place Current Interventions: Oxygen (2 liters), Telemetry Observation: pt with 2+pitting edema BLE Range of Motion - ROM Right Upper Extremity AROM: WFL's Left Upper Extremity AROM: WFL's Right Lower Extremity AROM: WFL's Left Lower Extremity AROM: WFL's Muscle Strength - Muscle Strength Right Upper Extremity Strength: Mild Weakness (shld flex 3+/5, elbow flex/ext 4- /5) Left Upper Extremity Strength: Mild Weakness (shld flex 3+/5, elbow flex/ext 4-/ 5) Right Lower Extremity Strength: Mild Weakness (hip flex 3+/5, knee flex/ext 4/5 , ankle DF/PF 4/5) Left Lower Extremity Strength: Mild Weakness (hip flex 3+/5, knee flex/ext 4/5, ankle DF/PF 4/5) Sensation - Sensation Right Upper Extremity Sensation: Intact/Normal Left Upper Extremity Sensation: Intact/Normal Right Lower Extremity Sensation: Intact/Normal Left Lower Extremity Sensation: Intact/Normal Palpation Palpation Findings: Tenderness Comments:: BLE Balance - Sitting Balance and Reactions Static Sitting Balance: Fair Dynamic Sitting Balance: Poor - Standing Balance and Reactions Static Standing Balance: Poor Dynamic Standing Balance: Poor Standing Equilibrium Reactions: Delayed Left, Delayed Right Standing Protective Reactions: Delayed Left, Delayed Right Functional Mobility - Bed Mobility Comments:: pt sitting up in chair does not wish to get into bed. - Transfers Sit to Stand: CGA, Min Assist Stand to Sit: CGA, Min Assist - Safety Awareness Safety Awareness: Fair BOBY INDEX SCORE: 44 Ambulation - Ambulation Assistive Device Used: Rolling Walker Orthotic/Prosthetic Device: No Distance: 50ft Assistance needed with Ambulation: CGA, Min Assist Quality of Ambulation: pt amb with CGA to min x 1 +1 to pull chair behind. pt requires use of O2 at 2 liters. Pulse ox while amb with O2 93% Gait Deviations: Forward posture, Short stride, Deviates from path Ambulation Comments: pt requires verbal cues to improve posture, and constant cues for pursed lip breathing. pt takes fast, shallow breaths. Factors Affecting Ambulation: Decreased Balance, Breathing/O2 Saturation, Weakness, Decreased Safety, Limited Endurance Treatment time - Units charged Gait trainin - Time with patient Length of Evaluation: 18 Total treatment time: 29 Patient Education - Education Patient Education: Activity Modification, Education of Plan of Care Teaching Recipient: Patient Teaching Methods: Discussion, Demonstration Comments: discussion regarding POC in swing bed as well as multiple demonstrations of proper PLB and benefits. Assessment - Assessment Problem List:: Decreased level of function, Requires training/education, Decreased safety/Risk of falls, Weakness Rehab Potential: Good Further Therapy Indicated?: Yes Candidate for Swing Bed for Therapy Services?: pt is swing bed Evaluation Complexity: HISTORY: Medium (CHF, DM, HTN, OA, Gout, pneumonitis), EXAM OF BODY SYSTEMS: Medium (SOA, endurance, posture, strength, balance, gait) , CLINICAL PRESENTATION: Medium (evolving), CLINICAL DECISION MAKING: Medium Short Term Goals GOAL #1: pt demonstrate independence with rolling and bridging in bed. Goal to be met by: 06/18/18 GOAL #2: Transfer sup to/from sit min to CGa Goal to be met by: 06/18/18 GOAL #3: Sit to/from stand CGA Goal to be met by: 06/18/18 GOAL #4: pt amb 100ft with rwx with CGA with O2 with no LOB Goal to be met by: 06/18/18 GOAL #5: Improved dyn stand balance fair Goal to be met by: 06/18/18 GOAL #6: BLE strength 4 to 4+/5 Goal to be met by: 06/18/18 Mcfp Goals GOAL #1: Transfer sup to/from sit CGA to SBA, sit to/from stand SBA Goal to be met by: 06/25/18 GOAL #2: pt amb with rwx with O2 functional household distances with SBA Goal to be met by: 06/25/18 GOAL #3: pt ascend/descend 2-3 steps with HR CGA Goal to be met by: 06/25/18 Plan Plan of Care: Therapeutic EX, Therapeutic Activity Other:: gait training Frequency of Treatment: 1-2 X day, as tolerated Duration of Treatment: 2 Weeks Anticipated Discharge Destination: Home Treatment Diagnosis (ICD 10 Codes): R26.2 difficulty walking. R26.82 balance impaired. M62.81 general weakness Has the Physician been added for Co-signature?: Yes
[2018-06-15] MEDS: COREG PO SCH (16:53)
[2018-06-15] MEDS: PULMICORT 1 MG/2 ML NEB SCH (17:04)
[2018-06-15] MEDS: XOPENEX 1.25 MG NEB SCH ×2 (17:05→22:03)
[2018-06-15] MEDS: HUMULIN R SUBCUT PRN ×2 (17:06→20:37)
[2018-06-15] MEDS: ATIVAN PO SCH (20:33)
[2018-06-15] MEDS: SOLU-CORTEF 250 MG IVP SCH (20:33)
[2018-06-15] MEDS: PRAVACHOL PO SCH (20:33)
[2018-06-15] MEDS: ZESTRIL PO SCH (20:34)
[2018-06-15] MEDS: FLOMAX PO SCH (20:34)
[2018-06-15] MEDS ORDERED: SOLU-CORTEF 100 MG IVP SCH (21:00)
[2018-06-16] MEDS: XOPENEX 1.25 MG NEB SCH ×4 (04:50→23:10)
[2018-06-16] MEDS: PULMICORT 1 MG/2 ML NEB SCH ×2 (04:50→17:08)
[2018-06-16] MEDS: SOLU-CORTEF 250 MG IVP SCH ×3 (05:50→20:25)
[2018-06-16] MEDS: SYNTHROID PO SCH (05:50)
[2018-06-16] MEDS: HUMULIN R SUBCUT PRN ×2 (05:50→18:21)
[2018-06-16] MEDS: ZYLOPRIM PO SCH (08:27)
[2018-06-16] MEDS: MIRALAX PO SCH (08:27)
[2018-06-16] MEDS: ASPIRIN EC PO SCH (08:27)
[2018-06-16] MEDS: ZESTRIL PO SCH ×2 (08:27→20:25)
[2018-06-16] MEDS: COREG PO SCH ×2 (08:27→17:07)
[2018-06-16] MEDS: KEFLEX PO SCH ×3 (08:27→20:25)
[2018-06-16] MEDS ORDERED: ALDACTONE PO SCH (09:00)
[2018-06-16] MEDS: K-DUR PO SCH ×2 (09:14→17:07)
--- NOTE | 2018-06-16 09:32 | PCM.PROG ---
Attending Provider: ATTENDING PROVIDER: Dr. MACKENZIE FUENTES This patient is seen with Lizette Latham, Nurse Practitioner. DATE OF SERVICE: 06/16/18 SUBJECTIVE: This 83 year old WHITE/ M was hospitalized 06/15/18. The patient is sitting in chair resting comfortably. Breathing has improved. Today still complains of bloating had a bowel movement the day before yesterday. Kidney function is about the same. REVIEW OF SYSTEMS: CONSTITUTIONAL: Weakness. No night sweats. No malaise, lethargy. No fever or chills. HEENT: Eyes: No visual changes. No eye pain. No eye discharge. ENT: No runny nose. No epistaxis. No sinus pain. No odynophagia. No congestion. RESPIRATORY: Cough. No hemoptysis. Shortness of breath. CARDIOVASCULAR: No angina symptoms. No CHF symptoms. No atypical chest pain for CAD. No palpitations. No orthopnea.. GASTROINTESTINAL: No abdominal pain. No nausea or vomiting. No diarrhea or constipation. No hematemesis. No hematochezia. GENITOURINARY: No urgency. No frequency. No dysuria. No hematuria. No obstructive symptoms. No discharge. No pain. No significant abnormal bleeding. MUSCULOSKELETAL: No musculoskeletal pain; no joint swelling. NEUROLOGICAL: Awake, alert, oriented to time, place and person. No headache. No neck pain. No syncope. No seizures. No dizziness. PSYCHIATRIC: Not anxious. No depression. No suicidal thoughts. No homicidal thoughts. SKIN: No rash. No lesions. No wounds. ENDOCRINE: No unexplained weight loss. No weight gain. HEMATOLOGIC/LYMPHATIC: No anemia. No purpura. No petechiae. No prolonged or excessive bleeding. No palpable lymph nodes. PHYSICAL EXAMINATION: GENERAL: The patient is awake, alert and oriented, sitting in chair in no distress. VITAL SIGNS: Temperature 98.4 F, Pulse 69, Respiratory Rate 16, BP 91/58, Pulse Ox 98% HEENT: Head normocephalic, atraumatic. Eyes: Extraocular muscles are intact. Pupils are equal, round and reactive to light and accommodation. Ears: No lesions. Nose appeared normal. Throat: No exudate or erythema. NECK: Supple. No JVD, no carotid bruit. No lymphadenopathy or thyromegaly. LUNGS: Diminished breath sounds with expiratory rub. Percussion note normal. Chest symmetrical. HEART: S1, S2, no S3. No murmurs. No cyanosis or clubbing. No ascites. Pulses: Dorsalis pedis and posterior tibial pulses +1 to +2 both sides. ABDOMEN: Soft. Non-tender. Bowel sounds active. No CVA tenderness. No mass felt. EXTREMITIES: Trace leg edema with wrinkling. Full range of motion of all extremities, equal. NEUROLOGIC: No focal deficit. Cranial nerves II through XII are grossly intact. No headache, no double vision or headache. SKIN: Not dry. Intact. Turgor-normal. LYMPHATIC: No palpable lymph nodes/no lymphedema. MUSCULOSKELETAL: Normal joints with no swelling. Muscle tone is normal. LAB REVIEW: 06/16/18 04:38 06/16/18 04:38 06/16/18 04:38: Sodium 134.0 L, Potassium 3.26 L, Chloride 88.8 L, Carbon Dioxide 35.4 H, Anion Gap 13.06, BUN 44.3 H, Creatinine 1.19 H, Estimated GFR ( MDRD) 59.00, BUN/Creatinine Ratio 37.22, Glucose 141.2 H D, Calcium 8.62, Total Bilirubin 1.32 H, AST 35.8, ALT 46.2, Alkaline Phosphatase 65.0, Total Protein 6.17 L, Albumin 3.73, Globulin 2.44, Albumin/Globulin Ratio 1.52 06/16/18 04:38: WBC 10.94 H, RBC 4.81, Hgb 15.1, Hct 46.8, MCV 97.3 H, MCH 31.4 H, MCHC 32.3, RDW Coeff of Leonardo 13.3, Plt Count 266, Immature Gran % (Auto) 0.4, Neut % (Auto) 59.6, Lymph % (Auto) 30.6, Maury % (Auto) 8.6, Eos % (Auto) 0.5, Baso % (Auto) 0.3, Immature Gran # (Auto) 0.0, Neut # (Auto) 6.5, Lymph # (Auto ) 3.4, Maury # (Auto) 0.9, Eos # (Auto) 0.1, Baso # (Auto) 0.0 ASSESSMENT: 1. Acute pneumonitis 2. Chronic lung disease 3. Cor Pulmonale 4. Generalized weakness 5. CHF 6. Non-compliance PLAN: 1. Continue PT/OT 2. Encouraged to increase oral intake today 3. Echocardiogram 4. PFT 5. Continue labs daily 6. Increase Aldactone b.i.d. 7. Potassium p.o. b.i.d. Plan and coordination of the patient's care discussed in the presence of Hand Clerical Verifier and nurse. CONDITION: Stable SCRIBED BY: JOCELINE VINSON Accordion Maker scribed while in presence of service performed by Dr. Fuentes/Lizette Latham APRN on 06/16/18 ([id number])
[2018-06-16] MEDS: ALDACTONE PO SCH ×2 (13:12→20:24)
--- NOTE | 2018-06-16 16:03 | RS.OTINEVL ---
Subjective - Patient information Date of Evaluation: 06/16/18 Date of Arrival on Unit: 06/15/18 Admitted From:: In-House Transfer Diagnosis: Energy conservation PRECAUTIONS: A high risk for falls Usual Living Arrangement: Lives with his girlfriend Living Arrangement Comments: Pt lives with his girlfriend. He reports he is still driving sometimes. He is not driving much. The girlfriend's grandstephon goes shopping for them. Pt reports he takes his own shower. Pt reports he is able to dress himself. Home Environment: House Medical History: Hypertension, COPD Medical History Comments:: Pt is SOA with any activity along with fatigue. Pt has difficulty walking and transfering. Pt has hypotension, Irreg. HB, UTI, hypothyroidism, skin CA, Kidney stones. LATEX ALLERGY?: No Subjective Information/ Patient Comments:: "I am bloated in my stomach. I get anxious at times." - Level of function Prior to this admission, the patient could do the following:: Independent Selfcare, Independent Ambulation (short distances due to SOA, however did not use O2 at home) Abilities prior to this admission: Pt was driving intermittently, eating meals on wheels, with his girlfriend. Pt independent with dressing, bathing, and walking without an assistive device. Current Equipment Used at Home: Glucometer is a friends that he uses. Nebulizer Pain Assessment - Pain Pain Score: 0 Interventions - Objective Patient Orientation: Person, Place, Time, Situation Current Interventions: IV's, Oxygen, Telemetry Observation: Pt SOA trying to talk. Pt SOA with any activity. Pt is weak and deconditioned. Pt has difficulty with LE dressing and walking. Interventions - ROM Right Upper Extremity AROM: WFL's Left Upper Extremity AROM: WFL's - Strength Right Upper Extremity Strength: Mild Weakness Left Upper Extremity Strength: Mild Weakness - Sensation Right Upper Extremity Sensation: Intact/Normal Left Upper Extremity Sensation: Intact/Normal Balance - Sitting Balance Static Sitting Balance: Good Dynamic Sitting Balance: Good - Standing Balance Static Standing Balance: Poor Dynamic Standing Balance: Poor ADL Skills - Self Feeding Self Feeding: Independent - Grooming Grooming: Min Assist - Dressing Dressing UE: Min Assist Dressing LE: Max Assist - Toilet Management Toileting Management: Min Assist Functional Mobility - Bed Mobility Rolling R/L: Min Assist Scooting: CGA Supine to Sit: Min Assist - Transfers Sit to Stand: CGA Stand to Sit: CGA Stand Pivot Transfers: CGA - Ambulation Weight Bearing Status: FWB Assistance needed with Ambulation: CGA - Safety Awareness Safety Awareness: Good BOBY INDEX SCORE: 44 Additional Treatment Performed - Additional units charged ADL: 16 - Time with patient Length of Evaluation: 19 Total treatment time: 35 Activities Do you enjoy playing games?: Yes Would you be interested in leaving your room for activities?: Yes Would you enjoy group activities?: Yes Do you have difficulty with your vision?: Yes Patient Interests:: Watching Television, Visiting/Socializing Patient Education Patient Education: Education of diagnosis, Home Exercise Program, Home Safety, Education of Plan of Care Teaching Recipient: Patient Teaching Methods: Discussion Assessment Problem List:: Decreased level of function, Requires training/education, Decreased safety/Risk of falls, Weakness, Pain limits previous level of function , Cognitive status limits abilities Rehab Potential: Good Further Therapy Indicated?: Yes Evaluation Complexity: HISTORY: Medium, EXAM OF BODY SYSTEMS: Medium, CLINICAL DECISION MAKING: Medium Short Term Goals - Goals GOAL 1: Pt to tolerated sink level ADLS with CGA. Goal to be met by: 06/23/18 GOAL 2: Pt to increase activity tolerace to 10 minutes. Goal to be met by: 06/23/18 Comments: with rests GOAL 3: Pt to increase BUE strength to 4+/5. Goal to be met by: 06/23/18 Penitentiary Goals GOAL 1: Pt to tolerated sink level ADLS (I). Goal to be met by: 06/29/18 GOAL 2: Pt to increase activity tolerace to 15 minutes. Goal to be met by: 06/29/18 GOAL 3: Pt to increase BUE strength to 5/5. Goal to be met by: 06/29/18 Plan Plan of Care: Therapeutic EX, Neuromuscular Re-Educ, Therapeutic Activity, Self- Care/Home Management Frequency of Treatment: 1-2 X day, as tolerated Duration of Treatment: 2 Weeks Anticipated Discharge Destination: Home Treatment Diagnosis (ICD 10 Codes): M62.81 Muscle weakness, Z74.1 Need for assistance with personal care Has the Physician been added for Co-signature?: Yes
[2018-06-16] MEDS: FLOMAX PO SCH (20:24)
[2018-06-16] MEDS: ATIVAN PO SCH (20:24)
[2018-06-16] MEDS: PRAVACHOL PO SCH (20:25)
[2018-06-17] MEDS: PULMICORT 1 MG/2 ML NEB SCH ×2 (04:35→16:45)
[2018-06-17] MEDS: XOPENEX 1.25 MG NEB SCH ×4 (04:35→23:08)
[2018-06-17] MEDS: SOLU-CORTEF 250 MG IVP SCH ×3 (05:35→20:30)
[2018-06-17] MEDS: SYNTHROID PO SCH (05:35)
[2018-06-17] MEDS: HUMULIN R SUBCUT PRN ×4 (05:55→20:36)
[2018-06-17] MEDS: ZYLOPRIM PO SCH (08:49)
[2018-06-17] MEDS: MIRALAX PO SCH (08:49)
[2018-06-17] MEDS: ASPIRIN EC PO SCH (08:49)
[2018-06-17] MEDS: K-DUR PO SCH ×2 (08:49→16:53)
[2018-06-17] MEDS: COREG PO SCH ×2 (08:49→16:53)
[2018-06-17] MEDS: KEFLEX PO SCH ×3 (08:49→20:36)
[2018-06-17] MEDS: ZESTRIL PO SCH (08:52)
[2018-06-17] MEDS: ALDACTONE PO SCH ×2 (08:52→20:30)
--- NOTE | 2018-06-17 13:04 | HP ---
DATE OF SERVICE: 06/15/18 - SWING BED HISTORY OF PRESENT ILLNESS: This is an 83-year-old white male who was an acute admission for acute pneumnonitis, shortness of breath, acute on chronic renal failure with CHF. He has been on IV antibiotics as well as IV steroids and IV diuretics for the combination of bronchitis and CHF. He is now requiring oxygen. He is being admitted for energy conservation, physical and occupational therapy, continuing IV steroids. PAST MEDICAL HISTORY: Shortness of breath Acute pneumonitis slowly improving Insomnia Recurrent gout Diabetes mellitus type 2 04/14/18 A1c (7.6) Hypertension CHF COPD/Moderate to severe BPH Hypothyroidism Obesity Chronic edema Chronic bronchitis Vitamin B deficiency History of leg edema Cor Pulmonale PAST SURGICAL HISTORY: Tonsils Skin Cancer REVIEW OF SYSTEMS: CONSTITUTIONAL: Weakness. No night sweats. No malaise, lethargy. No fever or chills. HEENT: Eyes: No visual changes. No eye pain. No eye discharge. ENT: No runny nose. No epistaxis. No sinus pain. No sore throat. No odynophagia. No ear pain. No congestion. RESPIRATORY: Cough. No hemoptysis. Shortness of breath. CARDIOVASCULAR: No angina symptoms. No CHF symptoms. No atypical chest pain for CAD. No palpitations. No PND. No orthopnea. GASTROINTESTINAL: No abdominal pain. No nausea or vomiting. No diarrhea or constipation. No hematemesis. No hematochezia. GENITOURINARY: No urgency. No frequency. No dysuria. No hematuria. No obstructive symptoms. No discharge. No pain. No significant abnormal bleeding. MUSCULOSKELETAL: No musculoskeletal pain. No joint swelling. No arthritis. NEUROLOGICAL: No headache. No neck pain. No syncope. No seizures. No dizziness. PSYCHIATRIC: Not anxious. No depression. No suicidal thoughts. No homicidal thoughts. SKIN: No rash. No lesions. No wounds. ENDOCRINE: No unexplained weight loss. No weight gain. HEMATOLOGIC/LYMPHATIC: No anemia. No purpura. No petechiae. No prolonged or excessive bleeding. No palpable lymph nodes. PERSONAL/FAMILY/SOCIAL HISTORY: He lives with his friend, Koki Rose. He is nonsmoker. No alcohol use. No illicit drug use. MEDICATIONS: Zaroxolyn 2.5 mg p.o. MoWeFr p.r.n. Ipratropium/Albuterol 3 mL IH b.i.d. Furosemide 40 mg p.o. daily Budesonide/Formoterol one puff INH daily Albuterol (Proair Hfa) one puff IH q4-6h p.r.n. Tylenol 650 mg p.o. q4h p.r.n. Codeine/Promethazine 10 mL p.o. q8h p.r.n. Vistaril 25 mg p.o q.4h p.r.n. Humulin R 0 unit subcut p.r.n. [place] Nasal [place] two spray AHMET p.r.n. Hydroxyzine 25 mg IM q.4h p.r.n. Keflex 500 mg p.o. t.i.d. Coreg 3.125 mg p.o. b.i.d. with meal Pulmicort 1 mg/2 ml Levalbuterol one vial neb Rt q.6h Ativan 0.5 mg p.o. bedtime Pravachol 40 mg p.o. bedtime Flomax 0.4 mg p.o. bedtime Solu-Cortef (100 mg) 125 mg IVP q.8hr Solu-Cortef (250 mg) 125 mg IVP q.8hr Synthroid 100 mcg p.o. q.d a.c Aspirin 81 mg p.o. daily with meal Miralax 17 gm p.o. daily K-Dur 20 mEq p.o. b.i.d. with meal Aldactone 25 mg p.o. b.i.d. Zyloprim 200 mg p.o. daily Zestril 5 mg p.o. daily ALLERGIES: NKDA PHYSICAL EXAMINATION: HEENT: Head normocephalic, atraumatic. Eyes: Extraocular muscles are intact. Pupils are equal, round and reactive to light and accommodation. Ears: No lesions. Nose appeared normal. Throat: No exudate or erythema. NECK: Supple. No JVD, no carotid bruit. No lymphadenopathy or thyromegaly. LUNGS: Severely diminished breath sounds. Bilateral expiratory rub. Percussion note normal. Chest symmetrical. HEART: S1, S2, no S3. No murmurs. No cyanosis or clubbing. No ascites. Pulses: Dorsalis pedis and posterior tibial pulses +1 to +2 bilaterally. ABDOMEN: Soft. Nontender. Bowel sounds active. No CVA tenderness. No mass felt. EXTREMITIES: +1 bilateral leg edema significantly improved. Full range of motion of all extremities, equal. NEUROLOGIC: No focal deficit. Cranial nerves II through XII are grossly intact. No headache, no double vision or headache. SKIN: Not dry. Intact. Turgor - normal. LYMPHATIC: No palpable lymph nodes/no lymphedema. MUSCULOSKELETAL: Normal joints with no swelling. Muscle tone is normal. ASSESSMENT: 1. SHORTNESS OF BREATH 2. ACUTE PNEUMONITIS IMPROVING 3. COPD WITH EXACERBATION NOW REQUIRING OXYGEN 4. GENERALIZED WEAKNESS 5. CHF 6. CHRONIC LEG EDEMA - IMPROVED 7. ACUTE ON CHRONIC RENAL FAILURE 8. OBESITY PLAN: 1. We will admit to swing bed. 2. Start physical and occupational therapy. 3. Continue Solu-Cortef IV 125 mg q.8hr. 4. Oxygen at 1 to 2L p.r.n. up to 3L with exertion. 5. Continue CBC and CMP daily as we are watching his kidney function. He is no longer on IV fluids. 6. Continue Aldactone. Will increase to 25 mg p.o. b.i.d. 7. I will continue to follow him closely. TIME SPENT: More than 70 minutes. MTDD
--- NOTE | 2018-06-17 14:42 | PN ---
DATE OF SERVICE: 06/15/18 SUBJECTIVE: The patient was discharged from the regular admission and put on the swing bed and the purpose is to give physical therapy and make him able to do his activity of daily living. He has lost out with his capacity to function because of his severe chronic lung disease. His overall status seems to be improving some with less congestion. His appetite seems to be improving. ASSESSMENT: 1. Severe chronic lung disease with cor pulmonale. The patient was seen and examined with the nurse practitioner. TIME SPENT: More than 30 minutes. Plan and coordination of the patient's care discussed in the presence of nurse. KENTRELL
[2018-06-17] MEDS: FLOMAX PO SCH (20:30)
[2018-06-17] MEDS: ATIVAN PO SCH (20:30)
[2018-06-17] MEDS: PRAVACHOL PO SCH (20:30)
[2018-06-18] MEDS: PULMICORT 1 MG/2 ML NEB SCH ×2 (04:50→16:50)
[2018-06-18] MEDS: XOPENEX 1.25 MG NEB SCH ×4 (04:50→23:02)
[2018-06-18] MEDS: SOLU-CORTEF 250 MG IVP SCH (05:58)
[2018-06-18] MEDS: SYNTHROID PO SCH (05:58)
[2018-06-18] MEDS: HUMULIN R SUBCUT PRN ×4 (05:59→21:11)
[2018-06-18] MEDS ORDERED: CITRATE OF MAGNESIA PO STA (08:17)
[2018-06-18] MEDS: ZYLOPRIM PO SCH (08:42)
[2018-06-18] MEDS: MIRALAX PO SCH (08:42)
[2018-06-18] MEDS: ASPIRIN EC PO SCH (08:43)
[2018-06-18] MEDS: KEFLEX PO SCH (08:43)
[2018-06-18] MEDS: COREG PO SCH ×2 (08:43→16:36)
[2018-06-18] MEDS: ZESTRIL PO SCH (08:43)
[2018-06-18] MEDS: K-DUR PO SCH ×2 (08:43→16:36)
[2018-06-18] MEDS: ALDACTONE PO SCH ×2 (08:43→21:09)
--- NOTE | 2018-06-18 08:47 | PCM.PROG ---
Attending Provider: ATTENDING PROVIDER: Dr. MACKENZIE FUENTES This patient is seen with Lizette Latham, Nurse Practitioner. DATE OF SERVICE: 06/18/18 SUBJECTIVE: This 83 year old WHITE/ M was hospitalized 06/15/18. The patient is sitting in chair resting comfortably. Breathing significantly improved. Will attempt to wean steroids today. Still needs to have bowel movement. He is eating well. REVIEW OF SYSTEMS: CONSTITUTIONAL: Weakness. No night sweats. No malaise, lethargy. No fever or chills. HEENT: Eyes: No visual changes. No eye pain. No eye discharge. ENT: No runny nose. No epistaxis. No sinus pain. No odynophagia. No congestion. RESPIRATORY: No cough, no congestion. No hemoptysis. Shortness of breath. CARDIOVASCULAR: No angina symptoms. No CHF symptoms. No atypical chest pain for CAD. No palpitations. No orthopnea.. GASTROINTESTINAL: No abdominal pain. No nausea or vomiting. No diarrhea or constipation. No hematemesis. No hematochezia. GENITOURINARY: No urgency. No frequency. No dysuria. No hematuria. No obstructive symptoms. No discharge. No pain. No significant abnormal bleeding. MUSCULOSKELETAL: No musculoskeletal pain; no joint swelling. NEUROLOGICAL: Awake, alert, oriented to time, place and person. No headache. No neck pain. No syncope. No seizures. No dizziness. PSYCHIATRIC: Not anxious. No depression. No suicidal thoughts. No homicidal thoughts. SKIN: No rash. No lesions. No wounds. ENDOCRINE: No unexplained weight loss. No weight gain. HEMATOLOGIC/LYMPHATIC: No anemia. No purpura. No petechiae. No prolonged or excessive bleeding. No palpable lymph nodes. PHYSICAL EXAMINATION: GENERAL: The patient is awake, alert and oriented, sitting in chair in no distress. VITAL SIGNS: Temperature 97.5 F, Pulse 71, Respiratory Rate 20, BP 105/66, Pulse Ox 97% HEENT: Head normocephalic, atraumatic. Eyes: Extraocular muscles are intact. Pupils are equal, round and reactive to light and accommodation. Ears: No lesions. Nose appeared normal. Throat: No exudate or erythema. NECK: Supple. No JVD, no carotid bruit. No lymphadenopathy or thyromegaly. LUNGS: Diminished breath sounds. Clear to auscultation. Percussion note normal. Chest symmetrical. HEART: S1, S2, no S3. No murmurs. No cyanosis or clubbing. No ascites. Pulses: Dorsalis pedis and posterior tibial pulses +1 to +2 both sides. ABDOMEN: Soft. Non-tender. Bowel sounds active. No CVA tenderness. No mass felt. EXTREMITIES: Trace bilateral leg edema. Full range of motion of all extremities, equal. NEUROLOGIC: No focal deficit. Cranial nerves II through XII are grossly intact. No headache, no double vision or headache. SKIN: Not dry. Intact. Turgor-normal. LYMPHATIC: No palpable lymph nodes/no lymphedema. MUSCULOSKELETAL: Normal joints with no swelling. Muscle tone is normal. LAB REVIEW: 06/18/18 05:00 06/18/18 05:00 06/18/18 05:00: Sodium 134.7, Potassium 4.03, Chloride 92.3 L, Carbon Dioxide 35.7 H, Anion Gap 10.73, BUN 33.6 H, Creatinine 1.17 H, Estimated GFR (MDRD) 60.00, BUN/Creatinine Ratio 28.71, Glucose 227.4 H, Calcium 8.42, Total Bilirubin 1.18, AST 33.7, ALT 44.9, Alkaline Phosphatase 64.7, Total Protein 6.18 L, Albumin 3.79, Globulin 2.39, Albumin/Globulin Ratio 1.58 06/18/18 05:00: WBC 13.13 H, RBC 4.66 L, Hgb 14.6, Hct 45.3, MCV 97.2 H, MCH 31.3 H, MCHC 32.2, RDW Coeff of Leonardo 13.4, Plt Count 285, Immature Gran % (Auto) 0.4, Neut % (Auto) 76.3, Lymph % (Auto) 17.1, [place] % (Auto) 5.9, Eos % (Auto) 0.1, Baso % (Auto) 0.2, Immature Gran # (Auto) 0.1, Neut # (Auto) 10.0 H, Lymph # (Auto) 2.2, [place] # (Auto) 0.8, Eos # (Auto) 0.0, Baso # (Auto) 0.0 ASSESSMENT: 1. Acute bronchitis. 2. COPD now oxygen dependent. 3. Shortness of breath improving. 4. Acute on chronic renal failure - improving. 5. CHF. 6. Cor pulmonale. 7. Generalized weakness. 8. Constipation. PLAN: 1. Decrease Solu-Cortef to 80 mg q.8hr. 2. Magnesium Citrate one bottle. Plan and coordination of the patient's care discussed in the presence of Sling Operator and nurse. CONDITION: Stable SCRIBED BY: JOCELINE VINSON Draw In Hand scribed while in presence of service performed by Dr. Fuentes/Lizette Latham APRN on 06/18/18 ([id number])
[2018-06-18] MEDS ORDERED: SOLU-CORTEF 250 MG IVP SCH (13:00)
[2018-06-18] MEDS: SOLU-CORTEF 100 MG IVP SCH ×2 (14:12→21:09)
[2018-06-18] MEDS: ATIVAN PO SCH (21:08)
[2018-06-18] MEDS: PRAVACHOL PO SCH (21:09)
[2018-06-18] MEDS: FLOMAX PO SCH (21:09)
[2018-06-19] MEDS: XOPENEX 1.25 MG NEB SCH ×4 (05:17→22:49)
[2018-06-19] MEDS: PULMICORT 1 MG/2 ML NEB SCH ×2 (05:17→17:36)
[2018-06-19] MEDS: SOLU-CORTEF 100 MG IVP SCH ×3 (05:46→21:06)
[2018-06-19] MEDS: HUMULIN R SUBCUT PRN ×4 (05:47→21:03)
[2018-06-19] MEDS: SYNTHROID PO SCH (05:51)
[2018-06-19] MEDS: ZESTRIL PO SCH (08:14)
[2018-06-19] MEDS: MIRALAX PO SCH (08:14)
[2018-06-19] MEDS: COREG PO SCH ×2 (08:15→16:40)
[2018-06-19] MEDS: ZYLOPRIM PO SCH (08:17)
[2018-06-19] MEDS: K-DUR PO SCH ×2 (08:17→16:40)
[2018-06-19] MEDS: ALDACTONE PO SCH ×2 (08:17→21:02)
[2018-06-19] MEDS: ASPIRIN EC PO SCH (08:17)
[2018-06-19] MEDS: ATIVAN PO SCH (21:02)
[2018-06-19] MEDS: PRAVACHOL PO SCH (21:02)
[2018-06-19] MEDS: FLOMAX PO SCH (21:03)
[2018-06-20] MEDS: SOLU-CORTEF 100 MG IVP SCH ×3 (04:29→20:38)
[2018-06-20] MEDS: PULMICORT 1 MG/2 ML NEB SCH ×2 (05:09→17:49)
[2018-06-20] MEDS: XOPENEX 1.25 MG NEB SCH ×4 (05:09→22:55)
[2018-06-20] MEDS: SYNTHROID PO SCH (05:38)
[2018-06-20] MEDS: HUMULIN R SUBCUT PRN ×4 (06:12→20:37)
[2018-06-20] MEDS: ZYLOPRIM PO SCH (08:29)
[2018-06-20] MEDS: K-DUR PO SCH ×2 (08:29→16:59)
[2018-06-20] MEDS: ASPIRIN EC PO SCH (08:29)
[2018-06-20] MEDS: MIRALAX PO SCH (08:29)
[2018-06-20] MEDS: ALDACTONE PO SCH ×2 (08:29→20:36)
[2018-06-20] MEDS: ZESTRIL PO SCH (08:29)
[2018-06-20] MEDS: COREG PO SCH ×2 (08:29→16:59)
[2018-06-20] MEDS: FLOMAX PO SCH (20:36)
[2018-06-20] MEDS: ATIVAN PO SCH (20:36)
[2018-06-20] MEDS: PRAVACHOL PO SCH (20:37)
[2018-06-21] MEDS: PULMICORT 1 MG/2 ML NEB SCH ×2 (04:30→17:12)
[2018-06-21] MEDS: XOPENEX 1.25 MG NEB SCH ×4 (04:30→23:20)
[2018-06-21] MEDS: SYNTHROID PO SCH (05:37)
[2018-06-21] MEDS: SOLU-CORTEF 100 MG IVP SCH (05:37)
--- NOTE | 2018-06-21 08:51 | PCM.PROG ---
Attending Provider: ATTENDING PROVIDER: Dr. MACKENZIE FUENTES This patient is seen with Lizette Latham, Nurse Practitioner. DATE OF SERVICE: 06/21/18 SUBJECTIVE: This 83 year old WHITE/ M was hospitalized 06/15/18. The patient is resting comfortably. His shortness of breath has improved. He has been doing well with physical therapy. Still very weak. REVIEW OF SYSTEMS: CONSTITUTIONAL: No night sweats. No fatigue, malaise, lethargy. No fever or chills. Weakness. HEENT: Eyes: No visual changes. No eye pain. No eye discharge. ENT: No runny nose. No epistaxis. No sinus pain. No odynophagia. No congestion. RESPIRATORY: No cough, no congestion. No hemoptysis. Shortness of breath. CARDIOVASCULAR: No angina symptoms. No CHF symptoms. No atypical chest pain for CAD. No palpitations. No orthopnea.. GASTROINTESTINAL: No abdominal pain. No nausea or vomiting. No diarrhea or constipation. No hematemesis. No hematochezia. GENITOURINARY: No urgency. No frequency. No dysuria. No hematuria. No obstructive symptoms. No discharge. No pain. No significant abnormal bleeding. MUSCULOSKELETAL: No musculoskeletal pain; no joint swelling. NEUROLOGICAL: Awake, alert, oriented to time, place and person. No headache. No neck pain. No syncope. No seizures. No dizziness. PSYCHIATRIC: Not anxious. No depression. No suicidal thoughts. No homicidal thoughts. SKIN: No rash. No lesions. No wounds. ENDOCRINE: No unexplained weight loss. No weight gain. HEMATOLOGIC/LYMPHATIC: No anemia. No purpura. No petechiae. No prolonged or excessive bleeding. No palpable lymph nodes. PHYSICAL EXAMINATION: GENERAL: The patient is awake, alert and oriented, sitting in the chair in no distress. VITAL SIGNS: Temperature 97.8 F, Pulse 60, Respiratory Rate 20, BP 116/66, Pulse Ox 95% HEENT: Head normocephalic, atraumatic. Eyes: Extraocular muscles are intact. Pupils are equal, round and reactive to light and accommodation. Ears: No lesions. Nose appeared normal. Throat: No exudate or erythema. NECK: Supple. No JVD, no carotid bruit. No lymphadenopathy or thyromegaly. LUNGS: Diminished breath sounds. Clear to auscultation. Percussion note normal. Chest symmetrical. HEART: S1, S2, no S3. No murmurs. No cyanosis or clubbing. No ascites. Pulses: Dorsalis pedis and posterior tibial pulses +1 to +2 both sides. ABDOMEN: Soft. Non-tender. Bowel sounds active. No CVA tenderness. No mass felt. EXTREMITIES:Trace bilateral leg edema. Full range of motion of all extremities , equal. NEUROLOGIC: No focal deficit. Cranial nerves II through XII are grossly intact. No headache, no double vision or headache. SKIN: Not dry. Intact. Turgor-normal. LYMPHATIC: No palpable lymph nodes/no lymphedema. MUSCULOSKELETAL: Normal joints with no swelling. Muscle tone is normal. LAB REVIEW: 06/21/18 04:59 06/21/18 04:59 06/21/18 04:59: Sodium 135.1, Potassium 5.24 H, Chloride 98.2, Carbon Dioxide 34.7 H, Anion Gap 7.44, BUN 27.0 H, Creatinine 1.06, Estimated GFR (MDRD) 67.00 , BUN/Creatinine Ratio 25.47, Glucose 208.8 H, Calcium 8.45, Total Bilirubin 1.11, AST 31.4, ALT 51.6 H, Alkaline Phosphatase 59.5, Total Protein 5.83 L, Albumin 3.50, Globulin 2.33, Albumin/Globulin Ratio 1.50 06/21/18 04:59: WBC 12.72 H, RBC 4.53 L, Hgb 14.2, Hct 44.9, MCV 99.1 H, MCH 31.3 H, MCHC 31.6 L, RDW Coeff of Leonardo 13.4, Plt Count 223, Immature Gran % (Auto ) 0.3, Neut % (Auto) 77.4, Lymph % (Auto) 15.9, [place] % (Auto) 6.2, Eos % (Auto) 0.1, Baso % (Auto) 0.1, Immature Gran # (Auto) 0.0, Neut # (Auto) 9.9 H, Lymph # (Auto) 2.0, [place] # (Auto) 0.8, Eos # (Auto) 0.0, Baso # (Auto) 0.0 ASSESSMENT: Please see below. 1. Shortness of breath improving. 2. Hyperkalemia 3. COPD 4. Leg edema PLAN: 1. Decrease Aldactone 25mg PO daily 2. Start Lasix 20mg PO daily 3. Discontinue Solu-Cortef 4. Start Prednisone 20mg PO twice a day 5. 25gram Kayexelate today Plan and coordination of the patient's care discussed in the presence of Jewelry Estimator and nurse. SCRIBED BY: ABY GELLER Order Entry scribed while in presence of service performed by Dr. Fuentes/Lizette Latham APRN on 06/21/18 ([id number])
--- NOTE | 2018-06-21 11:10 | PN ---
DATE OF SERVICE: 06/18/18 SUBJECTIVE: The patient was seen and examined with the nurse practitioner. The patient's condition is improving. His mobility is improving with less shortness of breath. TIME SPENT: More than 30 minutes. Plan and coordination of the patient's care discussed in the presence of nurse. KENTRELL
[2018-06-21] MEDS: MIRALAX PO SCH (11:13)
[2018-06-21] MEDS ORDERED: KAYEXALATE SUSP PO STA (11:14)
[2018-06-21] MEDS: K-DUR PO SCH ×2 (11:18→16:55)
[2018-06-21] MEDS: ZYLOPRIM PO SCH (11:18)
[2018-06-21] MEDS: ALDACTONE PO SCH (11:19)
[2018-06-21] MEDS: ZESTRIL PO SCH (11:19)
[2018-06-21] MEDS: HUMULIN R SUBCUT PRN ×3 (11:19→21:23)
[2018-06-21] MEDS: COREG PO SCH ×2 (11:19→16:55)
[2018-06-21] MEDS: ASPIRIN EC PO SCH (11:19)
[2018-06-21] MEDS: LASIX TAB PO SCH (12:07)
--- NOTE | 2018-06-21 13:40 | PN ---
DATE OF SERVICE: 06/19/18 SUBJECTIVE: 83-year-old white male hospitalized after having cor pulmonale with biventricular failure with worsening of COPD. The patient's condition slowly has improved. He is in the swing bed. His condition has definitely improved with more air entry. He is able to walk with some support in the bathroom and come back which he was not able to do it. REVIEW OF SYSTEMS: CONSTITUTIONAL: No night sweats. No fatigue, malaise, lethargy. No fever or chills. HEENT: Eyes: No visual changes. No eye pain. No eye discharge. ENT: No runny nose. No epistaxis. No sinus pain. No sore throat. No odynophagia. No congestion. RESPIRATORY: No cough, no congestion. No hemoptysis. No shortness of breath. CARDIOVASCULAR: No angina symptoms. No CHF symptoms. No atypical chest pain for CAD. No palpitations. No PND. No orthopnea. GASTROINTESTINAL: No abdominal pain. No nausea or vomiting. No diarrhea or constipation. No hematemesis. No hematochezia. GENITOURINARY: No urgency. No frequency. No dysuria. No hematuria. No obstructive symptoms. No discharge. No pain. No significant abnormal bleeding. MUSCULOSKELETAL: No musculoskeletal pain; no joint swelling. NEUROLOGICAL: No headache. No neck pain. No syncope. No seizures. No dizziness. PSYCHIATRIC: Not anxious. No depression. No suicidal thoughts. No homicidal thoughts. SKIN: No rash. No lesions. No wounds. ENDOCRINE: No unexplained weight loss. No weight gain. HEMATOLOGIC/LYMPHATIC: No anemia. No purpura. No petechiae. No prolonged or excessive bleeding. No palpable lymph nodes. PHYSICAL EXAMINATION: VITAL SIGNS: Temperature 97.1, pulse 60, respiratory rate 18, BP 140/50, pulse ox 97%. HEENT: Head normocephalic, atraumatic. Eyes: Extraocular muscles are intact. Pupils are equal, round and reactive to light and accommodation. Ears: No lesions. Nose appeared normal. Throat: No exudate or erythema. NECK: Supple. No JVD, no carotid bruit. No lymphadenopathy or thyromegaly. LUNGS: Clear to auscultation. Percussion note normal. Chest symmetrical. HEART: S1, S2, no S3. No murmurs. No cyanosis or clubbing. No ascites. Pulses: Dorsalis pedis and posterior tibial pulses +1 to +2 bilaterally. ABDOMEN: Soft. Nontender. Bowel sounds active. No CVA tenderness. No mass felt. EXTREMITIES: +1 pitting edema. Full range of motion of all extremities, equal. NEUROLOGIC: No focal deficit. Cranial nerves II through XII are grossly intact. No headache, no double vision or headache. SKIN: Not dry. Intact. Turgor - normal. LYMPHATIC: No palpable lymph nodes/no lymphedema. MUSCULOSKELETAL: Normal joints with no swelling. Muscle tone is normal. ASSESSMENT: 1. Chronic respiratory failure with cor pulmonale. 2. Obesity. 3. Hypertension. PLAN: 1. Continue physical therapy, ambulation. 2. Advised to lose weight. 3. All the medications explained to the patient. CONDITION: Stable TIME SPENT: More than 30 minutes. Plan and coordination of the patient's care discussed in the presence of nurse. KENTRELL
--- NOTE | 2018-06-21 13:44 | PN ---
DATE OF SERVICE: 06/21/18 SUBJECTIVE: The patient was seen and examined with the nurse practitioner. The patient's breathing capacity and capacity to walk has increased. Condition is improving. The patient is in swing bed. TIME SPENT: More than 30 minutes. Plan and coordination of the patient's care discussed in the presence of nurse. KENTRELL
[2018-06-21] MEDS: PREDNISONE PO SCH (16:56)
[2018-06-21] MEDS: ATIVAN PO SCH (21:23)
[2018-06-21] MEDS: PRAVACHOL PO SCH (21:23)
[2018-06-21] MEDS: FLOMAX PO SCH (21:23)
[2018-06-22] MEDS: XOPENEX 1.25 MG NEB SCH ×4 (04:25→23:15)
[2018-06-22] MEDS: PULMICORT 1 MG/2 ML NEB SCH ×2 (04:25→16:54)
[2018-06-22] MEDS: SYNTHROID PO SCH (05:59)
[2018-06-22] MEDS: HUMULIN R SUBCUT PRN ×4 (06:00→21:29)
[2018-06-22] MEDS: LASIX TAB PO SCH (06:00)
[2018-06-22] MEDS: MIRALAX PO SCH (10:33)
[2018-06-22] MEDS: ASPIRIN EC PO SCH (10:33)
[2018-06-22] MEDS: ZYLOPRIM PO SCH (10:33)
[2018-06-22] MEDS: K-DUR PO SCH ×2 (10:33→16:31)
[2018-06-22] MEDS: ZESTRIL PO SCH (10:33)
[2018-06-22] MEDS: ALDACTONE PO SCH (10:34)
[2018-06-22] MEDS: COREG PO SCH ×2 (10:34→16:31)
[2018-06-22] MEDS: PREDNISONE PO SCH ×2 (10:34→16:31)
[2018-06-22] MEDS: ATIVAN PO SCH (21:29)
[2018-06-22] MEDS: PRAVACHOL PO SCH (21:29)
[2018-06-22] MEDS: FLOMAX PO SCH (21:29)
[2018-06-23] MEDS: PULMICORT 1 MG/2 ML NEB SCH ×2 (04:40→17:41)
[2018-06-23] MEDS: LASIX TAB PO SCH (05:49)
[2018-06-23] MEDS: HUMULIN R SUBCUT PRN ×4 (05:49→20:59)
[2018-06-23] MEDS: SYNTHROID PO SCH (05:49)
[2018-06-23] MEDS: XOPENEX 1.25 MG NEB SCH ×4 (08:38→23:21)
[2018-06-23] MEDS: MIRALAX PO SCH (09:21)
[2018-06-23] MEDS: ASPIRIN EC PO SCH (09:21)
[2018-06-23] MEDS: K-DUR PO SCH ×2 (09:21→17:20)
[2018-06-23] MEDS: COREG PO SCH ×2 (09:22→17:20)
[2018-06-23] MEDS: PREDNISONE PO SCH ×2 (09:22→17:20)
[2018-06-23] MEDS: ALDACTONE PO SCH (09:22)
[2018-06-23] MEDS: ZESTRIL PO SCH (09:22)
[2018-06-23] MEDS: ZYLOPRIM PO SCH (09:22)
--- NOTE | 2018-06-23 09:50 | PCM.PROG ---
Attending Provider: ATTENDING PROVIDER: Dr. MACKENZIE FUENTES This patient is seen with Lizette Latham, Nurse Practitioner. DATE OF SERVICE: 06/23/18 SUBJECTIVE: This 83 year old WHITE/ M was hospitalized 06/15/18. The patient is resting comfortably. He feels like he is getting stronger. He is still wearing continuous O2. Kidney function is stabilizing and cough has improved. REVIEW OF SYSTEMS: CONSTITUTIONAL: No night sweats. No fatigue, malaise, lethargy. No fever or chills. HEENT: Eyes: No visual changes. No eye pain. No eye discharge. ENT: No runny nose. No epistaxis. No sinus pain. No odynophagia. No congestion. RESPIRATORY: No cough, no congestion. No hemoptysis. Shortness of breath. CARDIOVASCULAR: No angina symptoms. No CHF symptoms. No atypical chest pain for CAD. No palpitations. No orthopnea.. GASTROINTESTINAL: No abdominal pain. No nausea or vomiting. No diarrhea or constipation. No hematemesis. No hematochezia. GENITOURINARY: No urgency. No frequency. No dysuria. No hematuria. No obstructive symptoms. No discharge. No pain. No significant abnormal bleeding. MUSCULOSKELETAL: No musculoskeletal pain; no joint swelling. Weakness. NEUROLOGICAL: Awake, alert, oriented to time, place and person. No headache. No neck pain. No syncope. No seizures. No dizziness. PSYCHIATRIC: Not anxious. No depression. No suicidal thoughts. No homicidal thoughts. SKIN: No rash. No lesions. No wounds. ENDOCRINE: No unexplained weight loss. No weight gain. HEMATOLOGIC/LYMPHATIC: No anemia. No purpura. No petechiae. No prolonged or excessive bleeding. No palpable lymph nodes. PHYSICAL EXAMINATION: GENERAL: The patient is awake, alert and oriented, Sitting in the chair in no distress. VITAL SIGNS: Temperature 98.4 F, Pulse 100, Respiratory Rate 18, BP 140/79, Pulse Ox 91% HEENT: Head normocephalic, atraumatic. Eyes: Extraocular muscles are intact. Pupils are equal, round and reactive to light and accommodation. Ears: No lesions. Nose appeared normal. Throat: No exudate or erythema. NECK: Supple. No JVD, no carotid bruit. No lymphadenopathy or thyromegaly. LUNGS: Diminished breath sounds with expiratory wheezing. Clear to auscultation. Percussion note normal. Chest symmetrical. HEART: S1, S2, no S3. No murmurs. No cyanosis or clubbing. No ascites. Pulses: Dorsalis pedis and posterior tibial pulses +1 to +2 both sides. ABDOMEN: Soft. Non-tender. Bowel sounds active. No CVA tenderness. No mass felt. EXTREMITIES: Trace leg edema. Full range of motion of all extremities, equal. NEUROLOGIC: No focal deficit. Cranial nerves II through XII are grossly intact. No headache, no double vision or headache. SKIN: Not dry. Intact. Turgor-normal. LYMPHATIC: No palpable lymph nodes/no lymphedema. MUSCULOSKELETAL: Normal joints with no swelling. Muscle tone is normal. LAB REVIEW: 06/23/18 04:05 06/23/18 04:05 06/23/18 04:05: Sodium 135.8, Potassium 4.67, Chloride 97.1 L, Carbon Dioxide 34.0 H, Anion Gap 9.37, BUN 25.8 H, Creatinine 1.06, Estimated GFR (MDRD) 67.00 , BUN/Creatinine Ratio 24.33, Glucose 207.8 H, Calcium 8.60, Total Bilirubin 1.16, AST 26.9, ALT 49.4, Alkaline Phosphatase 64.1, Total Protein 5.96 L, Albumin 3.67, Globulin 2.29, Albumin/Globulin Ratio 1.60 06/23/18 04:05: WBC 16.12 H, RBC 4.59 L, Hgb 14.5, Hct 45.3, MCV 98.7 H, MCH 31.6 H, MCHC 32.0, RDW Coeff of Leonardo 13.5, Plt Count 217, Immature Gran % (Auto) 0.4, Neut % (Auto) 79.8, Lymph % (Auto) 12.2, [place] % (Auto) 7.4, Eos % (Auto) 0.1, Baso % (Auto) 0.1, Immature Gran # (Auto) 0.1, Neut # (Auto) 12.9 H, Lymph # (Auto) 2.0, [place] # (Auto) 1.2, Eos # (Auto) 0.0, Baso # (Auto) 0.0 ASSESSMENT: Please see below. 1. Shortness of breath improving. 2. Hyperkalemia 3. COPD 4. Leg edema PLAN: 1. PFT tomorrow 2. Continue PT/OT 3. Possible discharge at the end of the week. Plan and coordination of the patient's care discussed in the presence of Mechanical Adjuster and nurse. SCRIBED BY: Mauro REDDY scribed while in presence of service performed by Dr. Fuentes/Lizette Latham APRN on 06/23/18 ([id number])
--- NOTE | 2018-06-23 12:39 | PN ---
DATE OF SERVICE: 06/22/18 SUBJECTIVE: The patient was seen and examined with the nurse practitioner. The patient's condition is improving. PHYSICAL EXAMINATION: HEENT: Head normocephalic, atraumatic. Eyes: Extraocular muscles are intact. Pupils are equal, round and reactive to light and accommodation. Ears: No lesions. Nose is normal. Supple. No JVD, no carotid bruit. No lymphadenopathy or thyromegaly. LUNGS: Decreased breath sounds but clear to auscultation. Percussion note normal. Chest symmetrical. HEART: S1, S2, no S3. No murmurs. No cyanosis or clubbing. No ascites. Pulses: Dorsalis pedis and posterior tibial pulses +1 to +2 bilaterally. ABDOMEN: Soft. Nontender. Bowel sounds active. No CVA tenderness. No mass felt. EXTREMITIES: No edema. Full range of motion of all extremities, equal. NEUROLOGIC: No focal deficit. Cranial nerves II through XII are grossly intact. No headache, no double vision or headache. SKIN: Not dry. Intact. Turgor - normal. LYMPHATIC: No palpable lymph nodes/no lymphedema. MUSCULOSKELETAL: Normal joints with no swelling. Muscle tone is normal. ASSESSMENT: Nasal congestion seems to be resolving. TIME SPENT: More than 30 minutes. Plan and coordination of the patient's care discussed in the presence of nurse. KENTRELL
[2018-06-23] MEDS: FLOMAX PO SCH (20:58)
[2018-06-23] MEDS: ATIVAN PO SCH (20:58)
[2018-06-23] MEDS: PRAVACHOL PO SCH (20:58)
[2018-06-24] MEDS: XOPENEX 1.25 MG NEB SCH ×4 (04:30→22:50)
[2018-06-24] MEDS: PULMICORT 1 MG/2 ML NEB SCH ×2 (04:30→17:29)
[2018-06-24] MEDS: SYNTHROID PO SCH (05:45)
[2018-06-24] MEDS: LASIX TAB PO SCH (05:45)
[2018-06-24] MEDS: HUMULIN R SUBCUT PRN ×4 (06:25→20:13)
[2018-06-24] MEDS: PREDNISONE PO SCH ×2 (08:56→17:10)
[2018-06-24] MEDS: ZYLOPRIM PO SCH (08:56)
[2018-06-24] MEDS: MIRALAX PO SCH (08:56)
[2018-06-24] MEDS: ASPIRIN EC PO SCH (08:57)
[2018-06-24] MEDS: COREG PO SCH ×2 (08:57→17:10)
[2018-06-24] MEDS: ALDACTONE PO SCH (08:57)
[2018-06-24] MEDS: K-DUR PO SCH ×2 (08:57→17:10)
[2018-06-24] MEDS: ZESTRIL PO SCH (08:57)
[2018-06-24] MEDS: ATIVAN PO SCH (20:13)
[2018-06-24] MEDS: FLOMAX PO SCH (20:13)
[2018-06-24] MEDS: PRAVACHOL PO SCH (20:13)
[2018-06-25] MEDS: XOPENEX 1.25 MG NEB SCH ×2 (04:30→11:00)
[2018-06-25] MEDS: PULMICORT 1 MG/2 ML NEB SCH (04:30)
[2018-06-25 05:25] VITALS: BP 123/70; TEMP 98.1
[2018-06-25] MEDS: HUMULIN R SUBCUT PRN ×2 (06:04→11:11)
[2018-06-25] MEDS: LASIX TAB PO SCH (06:04)
[2018-06-25] MEDS: SYNTHROID PO SCH (06:04)
--- NOTE | 2018-06-25 07:36 | ECHO2D ---
Date of Exam: 06/24/18 Ordering Physician: DR. MACKENZIE FUENTES Room #: SCU3 Reason for Echo: SOB, COPD, HTN, DM, CHF M-Mode Normal Adult Results LV Dimensions Normal Adult Results AoV Opening excursions >1.6 >1.6 LVEDD-base- 3.5-5.8 4.0 Ao root dimensions 2.0-3.7 3.4 LVESD-base- 3.1-4.6 L. Atrium dimensions 1.9-3.8 3.7 Post. Wall thickness 0.8-1.1 1.3 IV septum (thickness) 0.7-1.2 1.5 Post. Wall excursion 0.72-1.3 NORMAL Septal motion NORMAL Systolic motion R. Ventricular cavity 1.5-2.0 3.5 LVEF 60% 72% Paradoxical septal wall motion NORMAL 2-D : 2-D M Mode Echocardiogram was performed using apical four chamber and left parasternal long and short axis views. Mitral, tricuspid and aortic valves appear to be normal. Contractility of the left ventricle seems to be normal, so is the cavity size. Left atrial cavity size and aortic root appear to be normal. There is no pericardial effusion. There is no thrombus noted in the left ventricular or left aortic cavity. No mitral valve prolapse noted. Enlarged right ventricle cavity. M-MODE: MV: NORMAL AV: NORMAL TV: NORMAL PV: CHAMBER SIZE: NORMAL WALL MOTION: NORMAL PERICARDIUM: NORMAL INTERPRETATION: 1. LEFT VENTRICULAR HYPERTROPHY 2. ENLARGED RIGHT VENTRICLE CAVITY 3. NORMAL VALVES 4. NORMAL LEFT VENTRICULAR CONTRACTILITY MTDD
[2018-06-25] MEDS ORDERED: KAYEXALATE SUSP PO STA (08:28)
--- NOTE | 2018-06-25 08:47 | PCM.PROG ---
Attending Provider: ATTENDING PROVIDER: Dr. MACKENZIE FUENTES This patient is seen with Lizette Latham, Nurse Practitioner. DATE OF SERVICE: 06/25/18 SUBJECTIVE: This 83 year old WHITE/ M was hospitalized 06/15/18. The patient has met goal with therapy. He is still somewhat short of breath with exertion. He failed three step and qualifies for home oxygen. REVIEW OF SYSTEMS: CONSTITUTIONAL: No night sweats. No fatigue, malaise, lethargy. No fever or chills. Weakness. HEENT: Eyes: No visual changes. No eye pain. No eye discharge. ENT: No runny nose. No epistaxis. No sinus pain. No odynophagia. No congestion. RESPIRATORY: No cough, no congestion. No hemoptysis. Shortness of breath. CARDIOVASCULAR: No angina symptoms. No CHF symptoms. No atypical chest pain for CAD. No palpitations. No orthopnea.. GASTROINTESTINAL: No abdominal pain. No nausea or vomiting. No diarrhea or constipation. No hematemesis. No hematochezia. GENITOURINARY: No urgency. No frequency. No dysuria. No hematuria. No obstructive symptoms. No discharge. No pain. No significant abnormal bleeding. MUSCULOSKELETAL: No musculoskeletal pain; no joint swelling. NEUROLOGICAL: Awake, alert, oriented to time, place and person. No headache. No neck pain. No syncope. No seizures. No dizziness. PSYCHIATRIC: Not anxious. No depression. No suicidal thoughts. No homicidal thoughts. SKIN: No rash. No lesions. No wounds. ENDOCRINE: No unexplained weight loss. No weight gain. HEMATOLOGIC/LYMPHATIC: No anemia. No purpura. No petechiae. No prolonged or excessive bleeding. No palpable lymph nodes. PHYSICAL EXAMINATION: GENERAL: The patient is awake, alert and oriented, sitting in the chair in no distress. VITAL SIGNS: Temperature 98.1 F, Pulse 92, Respiratory Rate 24, BP 123/70, Pulse Ox 94% HEENT: Head normocephalic, atraumatic. Eyes: Extraocular muscles are intact. Pupils are equal, round and reactive to light and accommodation. Ears: No lesions. Nose appeared normal. Throat: No exudate or erythema. NECK: Supple. No JVD, no carotid bruit. No lymphadenopathy or thyromegaly. LUNGS: Diminished breath sounds. Improved air movement. Clear to auscultation. Percussion note normal. Chest symmetrical. HEART: S1, S2, no S3. No murmurs. No cyanosis or clubbing. No ascites. Pulses: Dorsalis pedis and posterior tibial pulses +1 to +2 both sides. ABDOMEN: Soft. Non-tender. Bowel sounds active. No CVA tenderness. No mass felt. EXTREMITIES: Trace leg edema. Full range of motion of all extremities, equal. NEUROLOGIC: No focal deficit. Cranial nerves II through XII are grossly intact. No headache, no double vision or headache. SKIN: Not dry. Intact. Turgor-normal. LYMPHATIC: No palpable lymph nodes/no lymphedema. MUSCULOSKELETAL: Normal joints with no swelling. Muscle tone is normal. LAB REVIEW: 06/25/18 05:00 06/25/18 05:00 06/25/18 05:00: Sodium 134.0 L, Potassium 5.11 H, Chloride 95.4 L, Carbon Dioxide 33.1 H, Anion Gap 10.61, BUN 30.7 H, Creatinine 1.12 H, Estimated GFR ( MDRD) 63.00, BUN/Creatinine Ratio 27.41, Glucose 199.4 H, Calcium 8.62, Total Bilirubin 1.38 H, AST 28.0, ALT 51.4 H, Alkaline Phosphatase 62.6, Total Protein 6.23 L, Albumin 3.89, Globulin 2.34, Albumin/Globulin Ratio 1.66 06/25/18 05:00: WBC 13.39 H, RBC 4.72, Hgb 14.8, Hct 46.0, MCV 97.5 H, MCH 31.4 H, MCHC 32.2, RDW Coeff of Leonardo 13.5, Plt Count 251, Immature Gran % (Auto) 0.4, Neut % (Auto) 78.9, Lymph % (Auto) 14.5, Gonzales % (Auto) 6.0, Eos % (Auto) 0.1, Baso % (Auto) 0.1, Immature Gran # (Auto) 0.1, Neut # (Auto) 10.6 H, Lymph # ( Auto) 1.9, [place] # (Auto) 0.8, Eos # (Auto) 0.0, Baso # (Auto) 0.0 ASSESSMENT: Please see below. 1. Shortness of breath improving. 2. Hyperkalemia 3. COPD 4. Leg edema PLAN: 1. Anticipate discharge home this afternoon 2. Lisinopril 5mg daily 3. Discontinue Zaroxolyn at home 4. No Potassium at home or today 5. Resume Lasix 6. Continue Aldactone 25mg daily 7. 25 grams Kayexalate before discharge 8. Patient will need home health for physical and occupational therapy, nursing care and CHF education. Plan and coordination of the patient's care discussed in the presence of Fisher Trammel [employer] and nurse. SCRIBED BY: Mauro REDDY scribed while in presence of service performed by Dr. Fuentes/Lizette Latham APRN on 06/25/18 ([id number])
[2018-06-25] MEDS ORDERED: KAYEXALATE SUSP ONE ×2 (10:33→10:40)
[2018-06-25] MEDS: ASPIRIN EC PO SCH (10:35)
[2018-06-25] MEDS: ZESTRIL PO SCH (10:36)
[2018-06-25] MEDS: ZYLOPRIM PO SCH (10:36)
[2018-06-25] MEDS: PREDNISONE PO SCH (10:36)
[2018-06-25] MEDS: COREG PO SCH (10:36)
[2018-06-25] MEDS: ALDACTONE PO SCH (10:36)
[2018-06-25] MEDS: MIRALAX PO SCH (10:36)
[2018-06-25] MEDS: K-DUR PO SCH (10:41)
--- NOTE | 2018-06-25 11:53 | CM.DICTOOL ---
ADMISSION: 06/15/18 13:09 DISCHARGE: 06/25/2018 DATE OF SERVICE: 06/25/18 FINAL DIAGNOSIS PT/OT FOR ENERGY CONSERVATION INCREASED WEAKNESS R/T [facility] STAY SECONDARY TO PNEUMONITIS, SOA, COPD PNEUMONITIS, IMPROVED COPD EXACERBATION CHRONIC BRONCHITIS BILATERAL LEG EDEMA, CHRONIC COR PULMONALE HYPERTENSION CONGESTIVE HEART FAILURE DIABETES MELLITUS, TYPE 2 HYPOTHYROID DYSLIPIDEMIA RECURRENT GOUT HISTORY OF SKIN CANCER BPH INSOMNIA VITAMIN B DEFICIENCY COR PULMONALE FORMER SMOKER, QUIT 2009 PFT, SEVERE COPD (01/2017) ECHOCARDIOGRAM (08/2017) LVH ENLARGED RIGHT VENTRICLE LVEF 63% TONSILLECTOMY RT CATARACT EXTRACTION LAST VITALS Temp Pulse Resp BP Pulse Ox 98.1 F 92 H 24 123/70 94 L 06/25/18 05:25 06/25/18 05:25 06/25/18 05:25 06/25/18 05:25 06/25/18 06:00 TAKE THESE MEDICATIONS AT HOME Allopurinol (Zyloprim) 200 mg PO DAILY [facility] Last Admin: 06/25/18 10:36 Dose: 200 mg Albuterol Proair HFA 1 puff q4-6h PRN Budesonide/Formoterol (Symbicort 160-4.5 mcg inhaler) 1 puff INH DAILY Carvedilol (Coreg) 3.125 mg PO BIDWM [facility] Last Admin: 06/25/18 10:36 Dose: 3.125 mg Furosemide (Lasix Tab) 40 mg PO QDAC [facility] Last Admin: 06/25/18 06:04 Dose: 20 mg Ipratripium/Albuterol Sulfate 0.5-3(2.5) mg/3ml Nebulizer 3ml BID Levothyroxine Sodium (Synthroid) 100 mcg PO QDAC [facility] Last Admin: 06/25/18 06:04 Dose: 100 mcg Lisinopril (Zestril) 5 mg PO DAILY [facility] Last Admin: 06/25/18 10:36 Dose: 5 mg Lorazepam (Ativan) 0.5 mg PO BEDTIME [facility] Last Admin: 06/24/18 20:13 Dose: 0.5 mg Polyethylene Glycol (Miralax) 17 gm PO DAILY [facility] Last Admin: 06/25/18 10:36 Dose: 17 gm Pravastatin Sodium (Pravachol) 40 mg PO BEDTIME [facility] Last Admin: 06/24/18 20:13 Dose: 40 mg Spironolactone (Aldactone) 25 mg PO DAILY [facility] Last Admin: 06/25/18 10:36 Dose: 25 mg Tamsulosin HCl (Flomax) 0.4 mg PO BEDTIME [facility] Last Admin: 06/24/18 20:13 Dose: 0.4 mg ALLERGIES No Known Allergies Allergy (Verified 01/23/18 17:14) DISCONTINUED MEDICATIONS Metolazone (Zaroxolyn) NEW PRESCRIPTIONS: Lisinopril 5mg PO DAILY Spironolactone 25mg PO DAILY SMOKING: FORMER SMOKER, QUIT 2009 DISEASE SPECIFIC EDUCATION: COPD CONGESTIVE HEART FAILURE MEDICATIONS FOLLOW-UP APPOINTMENT DISCUSSED NEED FOR HOME HEALTH HOME OXYGEN LAB REVIEW: 06/25/18 05:00 06/25/18 05:00 06/25/18 05:00: Sodium 134.0 L, Potassium 5.11 H, Chloride 95.4 L, Carbon Dioxide 33.1 H, Anion Gap 10.61, BUN 30.7 H, Creatinine 1.12 H, Estimated GFR ( MDRD) 63.00, BUN/Creatinine Ratio 27.41, Glucose 199.4 H, Calcium 8.62, Total Bilirubin 1.38 H, AST 28.0, ALT 51.4 H, Alkaline Phosphatase 62.6, Total Protein 6.23 L, Albumin 3.89, Globulin 2.34, Albumin/Globulin Ratio 1.66 06/25/18 05:00: WBC 13.39 H, RBC 4.72, Hgb 14.8, Hct 46.0, MCV 97.5 H, MCH 31.4 H, MCHC 32.2, RDW Coeff of Leonardo 13.5, Plt Count 251, Immature Gran % (Auto) 0.4, Neut % (Auto) 78.9, Lymph % (Auto) 14.5, [place] % (Auto) 6.0, Eos % (Auto) 0.1, Baso % (Auto) 0.1, Immature Gran # (Auto) 0.1, Neut # (Auto) 10.6 H, Lymph # ( Auto) 1.9, [place] # (Auto) 0.8, Eos # (Auto) 0.0, Baso # (Auto) 0.0 PLAN: DISCHARGE HOME TODAY: 06/25/2018 DIET: ADA 2000 ELIS DIET ACTIVITY: TOLERATED WITH CONTINUOUS OXYGEN FOLLOW-UP WITH DR. FUENTES/GEOFFREY ACUNA, CLIN NURSE SPEC MONDAY JULY 02, 2018 @ 10:00AM CODE STATUS: DO NOT RESUSCITATE MR. LANDRY IS ALERT AND ORIENTED X3. HE IS AGREEABLE TO BE DISCHARGED HOME TODAY WITH HOME OXYGEN AND HOME HEALTH SERVICES. I FEEL HE WOULD BENEFIT FROM HOME OXYGEN HE FAILED THE 3-STEP PULSE OX TEST. I ALSO FEEL HE WOULD BENEFIT FROM HOME HEALTH NURSING CARE RELATED TO MEDICATION MANAGEMENT FOR CHF AND TO MONITOR WEIGHT GAIN. WELL HOME HEALTH FOR THERAPY FOR HOME SAFETY AND ENERGY CONSERVATION. HE IS ABLE TO COMPLETE ACTIVITIES OF DAILY LIVING, WITH SHORTNESS OF BREATH UPON EXERTION. HE HAS DIMINISHED BREATH SOUNDS WITH NOTED IMPROVEMENT OF AIR FLOW. TRACE EDEMA NOTED TO BILATERAL LOWER EXTREMITIES , ENCOURAGED TO ELEVATE LEGS WHEN AT REST. ABDOMEN LARGE, ROUND, BOWEL SOUNDS ACTIVE - LAST BM THIS AM. NUTRITIONAL STATUS GOOD, EATING 100% OF MEALS AND DRINKING WELL. SKIN WARM DRY AND INTACT. MACKENZIE ACUNA, CLIN NURSE SPEC
--- NOTE | 2018-06-30 11:47 | PN ---
DATE OF SERVICE: 06/23/18 SUBJECTIVE: The patient was seen and examined with the nurse practitioner. The patient's condition has been improving. He is able to walk, doing more with less shortness of breath. Cardiovascular status stable. Leg edema is stable. It is still 1+. The patient has dependent edema. TIME SPENT: More than 30 minutes. Plan and coordination of the patient's care discussed in the presence of nurse. KENTRELL
--- NOTE | 2018-06-30 11:50 | PN ---
DATE OF SERVICE: 06/24/18 SUBJECTIVE: The patient was seen and examined today by me. The patient had an echocardiogram today 06/24/18. The patient is doing well. He feels better. The patient is ready to be discharged. PHYSICAL EXAMINATION: HEENT: Head normocephalic, atraumatic. Eyes: Extraocular muscles are intact. Pupils are equal, round and reactive to light and accommodation. Ears: No lesions. Nose appeared normal. Throat: No exudate or erythema. NECK: Supple. No JVD, no carotid bruit. No lymphadenopathy or thyromegaly. LUNGS: Clear to auscultation. Percussion note normal. Chest symmetrical. HEART: S1, S2, no S3. No murmurs. No cyanosis or clubbing. No ascites. Pulses: Dorsalis pedis and posterior tibial pulses +1 to +2 bilaterally. ABDOMEN: Soft. Nontender. Bowel sounds active. No CVA tenderness. No mass felt. EXTREMITIES: No edema. Full range of motion of all extremities, equal. NEUROLOGIC: No focal deficit. Cranial nerves II through XII are grossly intact. No headache, no double vision or headache. SKIN: Not dry. Intact. Turgor - normal. LYMPHATIC: No palpable lymph nodes/no lymphedema. MUSCULOSKELETAL: Normal joints with no swelling. Muscle tone is normal. ASSESSMENT: He was able to do more. His appetite has improved. Echo is practically unchanged from one done one year ago. There was RV cavity enlargement, LVH. Contractility is normal. Normal valves. TIME SPENT: More than 30 minutes. Plan and coordination of the patient's care discussed in the presence of nurse. KENTRELL
--- NOTE | 2018-06-30 11:54 | PN ---
DATE OF SERVICE: 06/25/18 SUBJECTIVE: The patient was seen and examined on 06/25/18 in the morning. The patient's condition is stable. He has gained strength. He is up and about, moving with some help. His leg edema is much less than before. No symptoms of CHF or coronary insufficiency. The patient's condition is stable and he has gained enough strength to be discharged from the swing bed later on by nurse practitioner. TIME SPENT: More than 30 minutes. Plan and coordination of the patient's care discussed in the presence of nurse. KENTRELL
--- NOTE | 2018-07-01 14:49 | DS ---
DATE OF SERVICE: 06/25/18 (DISCHARGE FROM [facility]) FINAL DIAGNOSIS: 1. PT/OT FOR ENERGY CONSERVATION 2. INCREASED WEAKNESS R/T [facility] STAY 3. SECONDARY TO PNEUMONITIS, SOA, COPD 4. PNEUMONITIS, IMPROVED 5. COPD EXACERBATION 6. CHRONIC BRONCHITIS 7. BILATERAL LEG EDEMA, CHRONIC 8. COR PULMONALE 9. HYPERTENSION 10. CONGESTIVE HEART FAILURE 11. DIABETES MELLITUS, TYPE 2 12. HYPOTHYROID 13. DYSLIPIDEMIA 14. RECURRENT GOUT 15. HISTORY OF SKIN CANCER 16. BPH 17. INSOMNIA 18. VITAMIN B DEFICIENCY 19. COR PULMONALE 20. FORMER SMOKER, QUIT 2009 21. PFT, SEVERE COPD (01/2017) 22. ECHOCARDIOGRAM (08/2017) 23. LVH 24. ENLARGED RIGHT VENTRICLE 25. LVEF 63% 26. TONSILLECTOMY 27. RT CATARACT EXTRACTION LAST VITAL SIGNS: Temperature 98.1, pulse 92, respiratory rate 24, BP 123/70, pulse ox 94 DISCHARGE INSTRUCTIONS: 1. FOLLOW-UP WITH DR. FUENTES/GEOFFREY ACUNA, H[facility] MONDAY JULY 02, 2018 @ 10:00AM 2. CODE STATUS: DO NOT RESUSCITATE MEDICATIONS AT DISCHARGE: Allopurinol (Zyloprim) 200 mg PO DAILY [facility] Last Admin: 06/25/18 10:36 Dose: 200 mg Albuterol Proair HFA 1 puff q4-6h PRN Budesonide/Formoterol (Symbicort 160-4.5 mcg inhaler) 1 puff INH DAILY Carvedilol (Coreg) 3.125 mg PO BIDWM [facility] Last Admin: 06/25/18 10:36 Dose: 3.125 mg Furosemide (Lasix Tab) 40 mg PO QDAC [facility] Last Admin: 06/25/18 06:04 Dose: 20 mg Ipratripium/Albuterol Sulfate 0.5-3(2.5) mg/3ml Nebulizer 3ml BID Levothyroxine Sodium (Synthroid) 100 mcg PO QDAC [facility] Last Admin: 06/25/18 06:04 Dose: 100 mcg Lisinopril (Zestril) 5 mg PO DAILY [facility] Last Admin: 06/25/18 10:36 Dose: 5 mg Lorazepam (Ativan) 0.5 mg PO BEDTIME [facility] Last Admin: 06/24/18 20:13 Dose: 0.5 mg Polyethylene Glycol (Miralax) 17 gm PO DAILY [facility] Last Admin: 06/25/18 10:36 Dose: 17 gm Pravastatin Sodium (Pravachol) 40 mg PO BEDTIME [facility] Last Admin: 06/24/18 20:13 Dose: 40 mg Spironolactone (Aldactone) 25 mg PO DAILY [facility] Last Admin: 06/25/18 10:36 Dose: 25 mg Tamsulosin HCl (Flomax) 0.4 mg PO BEDTIME [facility] Last Admin: 06/24/18 20:13 Dose: 0.4 mg NEW PRESCRIPTIONS: Lisinopril 5mg PO DAILY Spironolactone 25mg PO DAILY DISCONTINUED MEDICATIONS: Metolazone (Zaroxolyn) DIET INSTRUCTIONS: ADA 2000 ELIS DIET ACTIVITY: TOLERATED WITH CONTINUOUS OXYGEN SMOKING: FORMER SMOKER, QUIT 2009 DISEASE SPECIFIC EDUCATION: COPD CONGESTIVE HEART FAILURE MEDICATIONS FOLLOW-UP APPOINTMENT DISCUSSED NEED FOR HOME HEALTH HOME OXYGEN HOSPITAL COURSE: This is an 83-year-old white male who has been in swing bed for physical and occupational therapy after being in acute care for COPD exacerbation, acute bronchitis. He has slowly improved. He is now qualified for home oxygen. He was continued on IV steroids due to the fact that during acute stay we tried to discontinue and put him on p.o. steroids. He was continued on IV steroids in swing bed. He has been on p.o. steroids for the past three days and has tolerated. He did have some secondary CHF. Leg edema has improved. Initially in acute care we thought he was developing some abdominal wall edema and he was placed on Aldactone. Will continue this at home. He is on Aldactone 25 daily along with Lasix 40 mg daily. I will decrease his Lisinopril to 5 mg daily. His potassium is 5.1 today but he has been on 20 mEq b.i.d. so will discontinue that. Chest x-ray showed significant improvement. Again, leg edema has improved. He has lost approximately 5 lbs during his hospital stay. He has been getting up walking around on his own although he is wearing his oxygen. Again he has met all of his goals. He states he is ready to go home. He will be discharged today in stable condition with physical and occupational therapy, home health as well as nursing for home health to help him with CHF education. Again, he qualifies for home 02. Will followup with him next week in the office. TIME SPENT: More than 60 minutes. KENTRELL
== END 2018-06-25 16:05 | disposition home or self-care (01) | DRG 194 ==
LOC: SCU 13:09
PROVIDERS: ADMIT Internal Medicine; ATTEND Internal Medicine
DX: J18.9 Pneumonia, unspecified organism (principal); J44.1 Chronic obstructive pulmonary disease with (acute) exacerbation; N17.9 Acute kidney failure, unspecified; N18.9 Chronic kidney disease, unspecified; J42 Unspecified chronic bronchitis; I10 Essential (primary) hypertension; I50.9 Heart failure, unspecified; E11.9 Type 2 diabetes mellitus without complications; E78.5 Hyperlipidemia, unspecified; E53.9 Vitamin B deficiency, unspecified; E03.9 Hypothyroidism, unspecified; E87.5 Hyperkalemia; G47.00 Insomnia, unspecified; K59.00 Constipation, unspecified; R06.02 Shortness of breath; R60.0 Localized edema
CPT/HCPCS: 36415; 80053; 82140; 82962; 85025; 94640; 94761; 97802

== ENCOUNTER 2018-06-27 14:10 | Inpatient (IN) | payer OTHER ==
[2018-06-27] MEDS ORDERED: DUONEB NEB ONE (14:21)
[2018-06-27] MEDS ORDERED: SOLU-MEDROL 125 MG IVP STA (14:24)
[2018-06-27] MEDS ORDERED: DUONEB NEB STA (14:24)
[2018-06-27] MEDS ORDERED: SODIUM CHLORIDE 1,000 ML IV STA (14:29)
--- NOTE | 2018-06-27 15:27 | CT ---
Exam: CT scan of the thorax without contrast. Date: 06/27/2018. Comparison: 06/13/2018. HISTORY: Shortness of breath. TECHNIQUE: Helical scan of the thorax was performed without contrast. FINDINGS: The thoracic inlet and axillary regions are normal. No suspicious mediastinal adenopathy is observed. There is mild ectasia of the descending thoracic aorta, measuring 2.9 x 3.3 cm. The ca liber of the cardiac chambers are normal. The spleen and upper liver have a uniform attenuation. Th ere is a 6.1 x 5.8 x 6.4 cm simple cyst in the right lobe of the liver. The gallbladder, stomach, pa ncreas and adrenal glands are normal. Multilevel degenerative changes present in the thoracic spine. No acute osseous abnormalities are se en. Evaluation at lung window settings demonstrates linear atelectasis and consolidation along the diaphr agmatic surfaces in the lower lobes bilaterally, left more than right. Granulomatous calcifications present. No pleural fluid is seen. Tracheobronchial tree is patent. Impression: There is linear atelectasis and consolidation along the diaphragmatic surfaces in the lo wer lobes bilaterally, left more than right. Findings may represent pneumonia and suggest correlatio n. 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 Simple hepatic cyst in the right lobe of the liver. ASVD including coronary artery calcification. Old granulomatous disease.
--- NOTE | 2018-06-27 15:50 | ED.PDOC ---
General ED Provider: Dr. LAURA AVALOS Chief Complaint: Shortness of Air Stated Complaint: shortness of breath Time Seen by Physician: 14:14 ( seen with his nurse at all time) Mode of Arrival: Wheelchair Information Source: Patient, Family Exam Limitations: No limitations Primary Care Provider: MACKENZIE FUENTES Nursing and Triage Documentation Reviewed and Agree: Yes Does patient meet sepsis criteria?: No If yes, has appropriate treatment been initiated?: No System Inflammatory Response Syndrome: Not Applicable (seen with his nurse and casy ) Sepsis Protocol: For patient's 13 years and over: Temp is 96.8 and below OR 101 and greater Pulse >90 BPM Resp >20/minute Acutely Altered Mental Status Are patient's symptoms suggestive of a new infection, such as: -Pneumonia -Skin, Soft Tissue -Endocarditis -UTI -Bone, Joint Infection -Implantable Device -Acute Abdominal Infection -Wound Infection -Meningitis -Blood Stream Catheter Infection -Unknown Respiratory Complaint Exam - Respiratory Complaint/Exam Onset/Duration: 2 montoya Symptoms Are: Still present Timing: Intermittent Initial Severity: Mild Current Severity: Mild Location: Nose, Throat, Chest Character: Reports: Non-productive cough Aggravating: Reports: URI Alleviating: Reports: Bronchodilators Associated Signs and Symptoms: Reports: URI, Nasal congestion. Denies: Rapid breathing, Dyspnea, Fever, Chills, Chest pain, Pleuritic chest pain, Wheezing, Hemoptysis, Dizziness, Calf pain, Calf swelling, Edema, Hoarseness, Sinus discomfort, Vomiting, Sore throat, Weight loss, Decreased oral intake, Increased thirst, Increased appetite, Increased urination Related History: Reports: Similar episode History of Healthcare-Acquired Pneumonia: Admit w/in last 30 days Related Surgical History: Reports: Renal Failure Pulmonary Embolism Risk Factors: Bedrest Cardiac Risk Factors: Reports: Diabetes, Hypertension Pseudomonas Risk Factors: Reports: Chronic Lung Disease Tuberculosis Risk Factors: Reports: None, Chronic Resp. Faliure Home Oxygen Use: No Recent Stress Test: No Recent Echo/LV Function: No Current Antibiotic Use: No Current Asthma Medication Use: No Respiratory Distress: None Inadequate Respiratory Effort: No Dysphagia Present: No Stridor Present: No JVD Present: No Accessory Muscle Use: No Retractions: Not Present Sinus Tenderness: None Grunting Respirations: No Kussmaul Respirations: No Differential Diagnoses: CHF, Pulmonary Edema, COPD Exacerbation, Pneumonia, Bronchitis, Lower Resp. Infection Review of Systems - Review Of Systems Constitutional: Reports: Malaise, Weakness Eyes: Reports: No symptoms Ears, Nose, Mouth, Throat: Reports: No symptoms Respiratory: Reports: Cough, Short of air Cardiac: Reports: No symptoms GI: Reports: No symptoms : Reports: No symptoms Musculoskeletal: Reports: No symptoms Skin: Reports: No symptoms Neurological: Reports: No symptoms Endocrine: Reports: No symptoms Hematologic/Lymphatic: Reports: No symptoms All Other Systems: Reviewed and Negative Past Medical History - Past Medical History Previously Healthy: Yes Endocrine: Reports: Hypothyroid, Dyslipidemia Cardiovascular: Reports: Hypertension, CHF Respiratory: Reports: COPD, Pneumonia Hematological: Reports: None Gastrointestinal: Reports: None Genitourinary: Reports: None Neuro/Psych: Reports: None Musculoskeletal: Reports: None Cancer: Reports: None Other Pertinent Past Medical History: tonsils, GLAUCOMA SURGERY - Surgical History General Surgical History: Reports: Tonsillectomy, Other (GLAUCOMA SURGERY) - Family History Family History: Reports: Unknown - Social History Smoking Status: Former smoker Hx Substance Use: No Alcohol Screening: None - Immunizations Influenza Vaccine within 12 Months: Yes (NOVEMBER) Pneumococcal Vaccine up to Date: Yes (ONE A LONG TIME AGO, ONE ONE OR TWO YEARS AGO) Physical Exam - Physical Exam Appearance: Ill-appearing Ill-appearing: Mild Pain Distress: Mild Eyes: NATHAN, EOMI, Conjunctiva clear ENT: Ears normal, Nose normal, Oropharynx normal Respiratory: Breath sounds diminished, Rhonchi Cardiovascular: RRR, Pulses normal, No rub, No murmur GI/: Soft, Nontender, No masses, Bowel sounds normal, No Organomegaly Musculoskeletal: Normal strength, ROM intact, No edema, No calf tenderness Skin: Warm, Dry, Normal color Neurological: Sensation intact, Motor intact, Reflexes intact, Cranial nerves intact, Alert, Oriented Psychiatric: Affect appropriate, Mood appropriate Interpretation - Radiology Interpretation Radiology Interpretation By: Radiologist Radiology Results: Positive (possible pneumonia) Re-Evaluation - Re-Evaluation Time of Re-Evaluation: 15:00 Status: Improved Vital Signs Stable: Yes Pain Level: 0 Appearance: NAD Lungs: Clear Skin: Warm and Dry Neuro: Alert and Oriented X3 CV: RRR - Re-Evaluation Time of Re-Evaluation: 15:55 (blood pressure 101/59 hr 81 no chest pain) Status: Improved Vital Signs Stable: Yes Pain Level: 0 Appearance: NAD Skin: Warm and Dry Neuro: Alert and Oriented X3 CV: RRR Physician Notification - Case Discussed Physician Notified: eloisa Admit/Transition Orders Entered by ED Provider: Yes Admit To: Inpatient Critical Care Note - Critical Care Note Total Time (mins): 0 Course - Course Hematology/Chemistry: 06/27/18 14:35 06/27/18 14:35 Orders, Labs, Meds: Lab Review 06/27/18 06/27/18 06/27/18 14:24 14:26 14:35 WBC 13.50 H RBC 4.98 Hgb 15.8 Hct 48.4 MCV 97.2 H MCH 31.7 H MCHC 32.6 RDW Coeff of Leonardo 13.9 Plt Count 250 Immature Gran % (Auto) 0.4 Neut % (Auto) 74.8 Lymph % (Auto) 16.4 [place] % (Auto) 7.5 Eos % (Auto) 0.8 Baso % (Auto) 0.1 Immature Gran # (Auto) 0.1 Neut # (Auto) 10.1 H Lymph # (Auto) 2.2 [place] # (Auto) 1.0 Eos # (Auto) 0.1 Baso # (Auto) 0.0 Puncture Site Rrad O2 Saturation 94.0 L ABG pH 7.439 ABG pCO2 44.4 ABG pO2 69.0 L ABG HCO3 30.1 H ABG Total CO2 31 H ABG Base Excess 6 H Alfonzo Test + O2 Delivery Device Nc Oxygen Liter Flow 2.00 Sodium Potassium Chloride Carbon Dioxide Anion Gap BUN Creatinine Estimated GFR (MDRD) BUN/Creatinine Ratio Glucose Lactic Acid Calcium Total Bilirubin AST ALT Alkaline Phosphatase Total Creatine Kinase Troponin I Total Protein Albumin Globulin Albumin/Globulin Ratio Procalcitonin Influ A Molecular Assay Negative by naat Influ B Molecular Assay Negative by naat 06/27/18 06/27/18 06/27/18 14:35 14:35 14:35 WBC RBC Hgb Hct MCV MCH MCHC RDW Coeff of Leonardo Plt Count Immature Gran % (Auto) Neut % (Auto) Lymph % (Auto) [place] % (Auto) Eos % (Auto) Baso % (Auto) Immature Gran # (Auto) Neut # (Auto) Lymph # (Auto) [place] # (Auto) Eos # (Auto) Baso # (Auto) Puncture Site O2 Saturation ABG pH ABG pCO2 ABG pO2 ABG HCO3 ABG Total CO2 ABG Base Excess Alfonzo Test O2 Delivery Device Oxygen Liter Flow Sodium 132.7 L Potassium 5.07 Chloride 93.0 L Carbon Dioxide 32.5 H Anion Gap 12.27 BUN 49.0 H Creatinine 1.87 H D Estimated GFR (MDRD) 35.00 BUN/Creatinine Ratio 26.20 Glucose 194.6 H Lactic Acid 1.14 Calcium 8.51 Total Bilirubin 2.01 H AST 36.2 ALT 41.3 Alkaline Phosphatase 48.8 L Total Creatine Kinase 61.8 Troponin I 0.013 Total Protein 6.68 Albumin 4.12 Globulin 2.56 Albumin/Globulin Ratio 1.60 Procalcitonin 0.07 Influ A Molecular Assay Influ B Molecular Assay Orders Category Date Time Status ABG DRAW REQUEST Stat CARDIO 06/27/18 14:24 Completed EKG-(ED ONLY) Stat CARDIO 06/27/18 14:23 Ordered NEBULIZER TREATMENT Stat CARDIO 06/27/18 14:24 Completed ED IV/MEDIPORT/POWERPORT .ONCE EMERGENCY 06/27/18 14:23 Active ABG Stat LAB 06/27/18 14:24 Completed BLOOD CULTURE Stat LAB 06/27/18 15:37 Received CBC W/ AUTO DIFF Stat LAB 06/27/18 14:35 Completed COMPREHENSIVE METABOLIC PANEL Stat LAB 06/27/18 14:35 Completed CREATINE KINASE Stat LAB 06/27/18 14:35 Completed FLU A/B MOLECULAR Stat LAB 06/27/18 14:26 Completed LACTIC ACID Stat LAB 06/27/18 14:35 Completed PROCALCITONIN Stat LAB 06/27/18 14:35 Completed TROPONIN I Stat LAB 06/27/18 14:35 Completed URINALYSIS C & S IF INDICATED Stat LAB 06/27/18 14:23 Uncollected 0.9 % Sodium Chloride [Saline Flush] MEDS 06/27/18 14:22 Ordered 1 syr IVF PRN PRN Ipratropium/Albuterol Neb [Duoneb] MEDS 06/27/18 14:21 Discontinued 1 vial NEB .STK-MED ONE Ipratropium/Albuterol Neb [Duoneb] MEDS 06/27/18 14:24 Discontinued 1 vial NEB ONCE STA Methylprednisolone Sod Succ/Pf [Solu-Medrol 125 mg] MEDS 06/27/18 14:24 Discontinued 125 mg IVP ONCE STA Sodium Chloride 0.9% [Sodium Chloride] 1,000 ml MEDS 06/27/18 14:[address] CHEST W/O CONTRAST Stat RADS 06/27/18 14:23 Completed Medications Generic Name Dose Route Start Last Admin Trade Name Freq PRN Reason Stop Dose Admin Sodium Chloride 1 syr 06/27/18 14:22 06/27/18 14:37 Saline Flush IVF 1 syr PRN PRN Administration To flush IV Discontinued Medications Generic Name Dose Route Start Last Admin Trade Name Freq PRN Reason Stop Dose Admin Albuterol/Ipratropium 1 vial 06/27/18 14:24 06/27/18 14:45 Duoneb NEB 06/27/18 14:25 Not Given ONCE STA Sodium Chloride 1,000 mls @ 1,000 mls/hr 06/27/18 14:29 06/27/18 14:36 Sodium Chloride IV 06/27/18 15:28 1,000 mls/hr BOLUS STA Administration Methylprednisolone Sodium Succinate 125 mg 06/27/18 14:24 06/27/18 14:36 Solu-Medrol 125 Mg IVP 06/27/18 14:25 125 mg ONCE STA Administration Vital Signs: Temp Pulse Resp BP Pulse Ox 06/27/18 14:11 98.0 F 93 H 28 H 74/52 L 93 L Departure - Departure Time of Disposition: 15:57 Disposition: ADMITTED INPATIENT Discharge Problem: Shortness of breath, Acute pneumonitis, CKD (chronic kidney disease) Instructions: Chronic Kidney Disease Diet (DC), Chronic Kidney Disease (ED) Condition: Good Pt referred to PMD for follow-up: Yes IPMP verified?: No Allergies/Adverse Reactions: Allergies No Known Allergies Allergy (Verified 06/27/18 14:40) Home Medications: Ambulatory Orders Carvedilol [Coreg] 3.125 mg PO BIDWM 03/14/16 Pravastatin Sodium [Pravachol] 40 mg PO BEDTIME 03/14/16 Tamsulosin HCl [Flomax] 0.4 mg PO BEDTIME 03/14/16 Furosemide [Lasix] 40 mg PO DAILY 07/11/17 Ipratropium/Albuterol Sulfate [Iprat-Albut 0.5-3(2.5) mg/3 ml] 3 ml IH BID 07/11 Levothyroxine Sodium 100 mcg PO DAILY 07/11/17 Budesonide/Formoterol Fumarate [Symbicort 160-4.5 Mcg Inhaler] 1 puff INH DAILY 09/24/17 Albuterol Sulfate [Proair Hfa] 1 puff IH Q4-6H PRN 06/07/18 Allopurinol 200 mg PO DAILY 06/07/18 Lorazepam [Ativan] 0.5 mg PO BEDTIME 06/07/18 Lisinopril [Prinivil] 5 mg PO DAILY #30 tablet 06/25/18 Spironolactone 25 mg PO DAILY #30 tablet 06/25/18 Metolazone [Zaroxolyn] 2.5 mg PO MOWEFR 06/27/18 Disposition Discussed With: Patient, Family
[2018-06-27] MEDS ORDERED: ROCEPHIN 1 GM in SODIUM CHLORIDE 50 ML IV SCH (16:00)
[2018-06-27] MEDS ORDERED: ROCEPHIN ONE (16:03)
[2018-06-27 16:57] VITALS: BMI 34.7
[2018-06-27] MEDS: DUONEB NEB SCH ×2 (16:58→23:00)
--- NOTE | 2018-06-27 17:07 | PCM ---
- Chief Complaint Chief Complaint: SOA, recent discharge from TCU [facility] PCP Dr. Ramirez - History of Present Illness History of Present Illness: 83 yr old WM presented to [facility] ER 06/27/18 at 14:14 with Temp 98.0, RR 28, Pulse 93, BP 74/52 and pulse ox 93% on RA. Dr. Mendiola met with patient and noted 48 hours of worsening SOA, nasal congestion, sore throat and chest fullness, non productive cough. URI symptoms x 48 hours similar to recent prolonged hospital course. Bronchodilators noted to provide benefit for the URI symptoms. He has had admit within last 30 days. Known renal failure, known decreased activity/ bedrest increases VTE risks. Additional problems include Chronic lung disease, DM, HTN, hypothyroidism, Histoyr of pneumonia, Chronic respiratory failure. Pt noted maliase, weakness, cough, SOA, nasal congestion. Influenza vaccine up to date. Pneumococcal vaccine listed as a few years ago. DDX considered by DR. Mendiola included CHF, pulm edema, COPD exacerbation, pneumonia, bronchitis, lower respiratory infection. Labs in ER showed WBC 13.50, hgb 15.8, plt 250. No anemia but his mcv was mildly elevatd at 97.2 and he had a neutrophilia. ABG completed and pH 7.439, pc02 44.4, p02 69, hc03 30, co2 31. Allens +. ABG independent interpration was primary metabolic alkalosis with appropriately compensated respiratory acidosis based on the above parameters. CMP showed mild hyponatremia with sodium 132.7 which corrects to normal (CORRECTED TO 133 mEq/L based on WHITMORE equation and 135 based on Manuelito 1999). Potassium 5.07, cl low at 93, co2 high at 32.5. Creatinine apparently chronically poor at 1.87. Glucose 194.6. Lactic acid 1.14, procalcitionin negative also at 0.07. Alk phos mildly decreased at 48.8, bili elevated at 2.01. Influenza was negative. CT chest was ordered w/o contrast. Report summary: "Linear atelectasis and consolidation along diaphragmatic surfaces in lower lobes bilaterally, left more than right. May represent pneumonia and suggest correlation. Mild ectasis of descending thoracic aorta 3.3 x 2.9 cm. Simple Right lobe hepatic cyst. ASVD Coronary calcifications noted. Granulomatous disease noted. Dr. Mendiola contacted me at 1548 and we discussed case and I summarized the care within the context of the note. Reviewed labs, imaging, ABG and also looked at the last TCU evaluation. Patient was somewhat hypotensive, SIRS criteria met, suspected pulmonary source. WBC is up a little. Duoneb admin in ER, 1L NS admin for hypotensive status, soluemdrol 125 mg stat given at 14:36 today. Admitted to inpatient 15:57 ordered, blood culture, UA, MRSA screen (if + consider adding vancomycin), labs for am ordered. He is now on ceftriaxone 1 Gram and levaquin 500 daily, duonebs QID, levothyroxine to continue, I reviewed last records and he had a TSH 1.300 on 06/15/18 with normal Free T4 1.28 06/15/18. I personally reviewed the old H+P and D/C summary from the last hospital stay and reviewed the labs. Summary 06/25/18: Last hospital stay documents reviewed. hospitalized initially on 06/15/18, met goal w/ therapy still YI he failed 3 step and qualified for home O2. WBC at that time was 13.39, which is not much different than now. Creatinine was 1.12 at that time and was anwyare from 0.94 through 1.12). The patient is worse regarding kidney function with baseline around 1.01-1.06 over last 1month. Discharged 2 days ago after 2 week hospital stent. They d/c home 06/25/18 with SOA improving, hyperkalemia, copd, leg edema. Resumed lasix at the d/c. Continued the aldactone despite the hyperkalemia, which was not ideal. They did give kayexalate at discharge 25 grams. Home therapy recommended chf education completed. D/C tool reviewed from 06/25/18Was put into TCu for energy conservation, increased weakness r/t length hospital stay. Pneumonitis, SOA, COPD. Chronic bilateral leg edema. Last echocardiogram 08/2017 LVH enlarged RV and EF 63%. H+P reviewed from . IV steroids, IV diuretics, IV abx for bronchits/CHF. Required O2. Admitted to [facility] for E conservation. Continued IV steroids (likely cause of the Neutrophilia). Was on zithromax and rocephin at admit 4/8/19. PFT: 06/15/18 FEV1/FVC 57 and significantly low. FVC 1.29 30% pred, FEV1 23% predicted. Based on this data the pateint has a mixed pattern and would have benefited from a post bronchodilator testing. with severe obstruction noted. CT Chest w/o contrast 06/13/18 similar to that seen today. 06/10/18: VENOUS doppler. NO sonographic e/o DVT. Bilateral lower extremity subcutaneous edema. 06/13/18: Abd/pelvis CT w/o contrast. NO SBO, no inflammatory changes. Appendix normal. Diverticulosis in rectosigmoid. NO renal calculi. NO renal/ureteral obstruction. Minimal perinephric edema on left. Stable liver cysts. Dense bile in GB, w/ sludging. 06/07 SPUTUM CULTURE NEGATIVE Patient Narrative: The patient noted his breathing was worse, more heavy. he thought he was getting by but the nurse that came by said he was breathing too fast. He feels better now. He was given steroids/neb/abx and fluids in ER. He wasusing nebulizer at home. He states that he missed meds at home, but does not remember. I asked about changes in weight. He noted weighed in ER was 235 was up to 260 lb. He thinks that he has lost some weight. I worry about his living status, I worry about his understanding of his overall health. Patient noted he was eating/drinking but again he is down quite a bit and likely clinically dry. He has no other c/o at this time other than skin breakdown superior ear left. - Review of Systems Constitutional: weakness, fatigue, loss of appetite. No: fever, chills, sweats , other Eyes: No: blurred vision, double-vision, discharge, itching, pain, redness, photophobia, other Ears: hearing loss (chronic). No: pain, bleeding, drainage, ringing, other Nose: congestion. No: bleeding, discharge, other Throat: No: pain, swelling, voice change, other Mouth: No: bleeding, pain, swelling, other Respiratory: cough, shortness of air, wheeze Cardiovascular: No: chest pain, left arm pain, diaphoresis, PND, orthopnea, edema, palpitations, syncope, other Gastrointestinal: No: abdominal pain, other, nausea, vomiting, diarrhea, melena , hematemesis, hematochezia, dysphagia, constipation Genitourinary: No: dysuria, hematuria, frequency, incontinence, flank pain, penile discharge, testicular pain, testicular swelling, other Neurological: headache (generalized). No: dizziness, seizure, numbness, weakness, speech difficulty, problems with walking, tremor, fainting, other Musculoskeletal: swelling in joints (bilateral LE edema chronically. ). No: pain, other Skin: No: rash, pruritus, lacerations, wounds, bruising, other Immunology: No: hives, itching, frequent infections, difficulty healing, other Hematology: easy bruising. No: easy bleeding, swollen glands, other Endocrine: weight changes (weight loss). No: cold intolerance, heat intolerance , excessive thirst, excessive hunger, polyuria, other Psychiatric: No: depression, anxiety, sleeplessness, hopelessness, suicidal, hallucinations, other Habits: No: tobacco use (former), substance use, alcohol use, other - Past Medical History Past Medical History: SOA/COPD, History of pneumnia, chronic insomnia, recurrent gout, DM 2, A1C 04/14/18 7.6, HTN, CHF, moderate to severe COPD, BPH, hypothyroidism, obesity, chronic peripheral edema, chronic bronchitis, vit B deficiency, Cor pulmonale. - Past Surgical History Past Surgical History: Tonsil surgery, skin cancer. - Allergies Allergies/Adverse Reactions: Allergies Allergy/AdvReac Type Severity Reaction Status Date / Time No Known Allergies Allergy Verified 06/27/18 14:40 - Medications Medications: Medications Generic Name Dose Route Start Last Admin Trade Name Freq PRN Reason Stop Dose Admin Albuterol/Ipratropium 1 vial 06/27/18 18:00 06/27/18 16:58 Duoneb NEB 1 vial [id number] PATRICIA Administration Allopurinol 200 mg 06/28/18 09:00 Zyloprim PO DAILY PATRICIA Furosemide 40 mg 06/28/18 09:00 Lasix Tab PO DAILY PATRICIA Ceftriaxone Sodium 1 gm/ 50 mls @ 75 mls/hr 06/27/18 16:00 06/27/18 16:16 Sodium Chloride IV 06/30/18 15:59 75 mls/hr DAILY PATRICIA Administration Levofloxacin/Dextrose 500 mg/ 100 mls @ 100 mls/hr 06/28/18 09:00 Dextrose IV 07/01/18 08:59 DAILY [facility] Sodium Chloride 1,000 mls @ 75 mls/hr 06/27/18 16:00 Sodium Chloride IV .[id number] [facility] Levothyroxine Sodium 100 mcg 06/28/18 09:00 Synthroid PO DAILY PATRICIA Lorazepam 0.5 mg 06/27/18 21:00 Ativan PO BEDTIME PATRICIA Methylprednisolone Sodium Succinate 40 mg 06/27/18 16:00 Solu-Medrol 40 Mg IVP Q12HR PATRICIA Metolazone 2.5 mg 06/28/18 16:01 Zaroxolyn PO MOWEFR PATRICIA Pravastatin Sodium 40 mg 06/27/18 21:00 Pravachol PO BEDTIME PATRICIA Sodium Chloride 1 syr 06/27/18 14:22 06/27/18 14:37 Saline Flush IVF 1 syr PRN PRN Administration To flush IV Spironolactone 25 mg 06/28/18 09:00 Aldactone PO DAILY PATRICIA Tamsulosin HCl 0.4 mg 06/27/18 21:00 Flomax PO BEDTIME PATRICIA - Family History Past Family History: Mother: Aneursym. Father: CAD, HTN, hyperlipidemia. Sister: . No children - Social History Past Social History: Lives with female friend Koki. No tobacco, no ETOH, no drug use. - Body Composition Height: 5 ft 9 in Weight: 235 lb 6.6 oz Body Mass Index (BMI): 34.7 - Physical Examination HEENT: Constitutional: Appearance-Mild distress sitting in bedside chair, Consistent with stated age. Orientation- Oriented x 3, alert Stance, Able to stand, evaluated sacrum/coccyx. Mild erythema but no breakdown. Build and Nutrition-[ obese male] General- Patient is pleasant and cooperative with the interview and exam. Integumentary: General-No rashes, ulcers or lesions. Palpation- Normal skin moisture/turgor. Skin is warm to touch, appropriate. Capillary refill is normal bilateral Upper and lower extremity. Skin breakdown left superior helix/scalp junction. He has SK left parietal scalp. He has numerous SK along back. Head/Neck: Head- normocephalic and atraumatic. Neck- without visible/palpable lumps or pulsations. Palpation- No bony tenderness about head/neck along frontal, occipital, temporal, parietal, mastoid, jawline, zygoma, orbit or any other location. NO temporal artery tenderness. No TMJ tenderness. Neck Supple. Thyroid-No thyromegaly, no nodules Eye: Bilaterally PERRLA, EOMI. No discharge. Upper and lower eyelids are normal. Sclera/conjunctiva normal without discharge. Cornea is normal and clear. Lens is normal. Eyeball appears normal. No ciliary flushing, no conjunctival injection. ENMT: Pinna- normal without tenderness or erythema. Skin breakdown from oxygen along the left upper ear. External auditory canal Left- normal without erythema or discharge, no excessive cerumen. External auditory canal Right- normal without erythema or discharge, no excessive cerumen. TM left- Segundo/pearly , normal light reflex and anatomy TM Right- Segundo/pearly, normal light reflex and anatomy Hearing Assessment-normal to conversational speech. Nose and sinus - No sinus tenderness along frontal/maxillary region. External appearance normal and midline. Nares- bilateral quiet airflow, no discharge. Nasal mucosa- No bleeding noted and no ulcerations observed. [place], moist. Turbinates non boggy. Lips- normal color, moist without cracks/lesions Oral Cavity/Palate- hard /soft palate intact without lesions, oral mucosa pink and moist. Tongue normal midline. Oropharynx- no pharyngeal erythema, Uvula midline. No post nasal drip. No exudate. Salivary glands- Non tender to palpation CHEST/LUNG: Inspection- symmetric chest wall no pectus deformity. Normal effort , no distress, talks in complete sentences, mild pursed lip breathing. He is using some abdominal breathing but breathing shallow. Palpation- nontender sternum, ribline. No abnormal pulsations. Auscultation- Breath sounds coarse and diminished throughout all lung rodrigues. tracheal sounds, bronchial sounds overlying sternum, Bronchovessicular sounds between scapulae posteriorly, vessicular breath sounds heard throughout periphery. Adventitious sounds- wheezes, bibasilar rales, scattered rhonchi. CARDIOVASCULAR: Carotid artery- normal, no bruits or abnormal pulsations. Jugular vein- no pulsations. Palpation/Percussion- Normal PMI, no palpable thrill Auscultation- Regular rate and rhythm. Distant heart sounds. Difficult to auscultate with patient habitus/posture forward flexed about the T spine sitting in chair. No radiation of sounds into neck/axilla. Extremities- no digital clubbing, cyanosis, Diffuse 3+ pitting edema bilaterally to mid zamudio and 2+ pitting edema to proximal thigh. No increased warmth. NO cellulitis. ABDOMEN: Inspection- normal and no visible pulsations. Normal contour. Auscultation- Bowel sounds normal, no abdominal bruits. Palpation/Percussion- soft, non-tender, no rebound tenderness, no rigidity (guarding), no jar tenderness, no masses. Liver-no hepatomegaly, Spleen no splenomegaly, Peripheral Vascular: Upper extremity Left- Normal temperature with pink nailbeds and no ulcerations. Upper extremity Right- Normal temperature with pink nailbeds and no ulcerations. Lower extremity- Normal temperature with pink nailbeds and no visible ulcerations. DP pulses 1+ bilaterally. Pedal hair absent. Tissue is soft but prominent edema. Musculoskeletal: Generalized-No generalized swelling or edema of extremities, no digital clubbing or cyanosis, neurovascularly intact all four extremities. Upper extremity- Symmetrical posture. No visible deformity. Normal sensation along medial and lateral upper extremity proximally and distally. NO tenderness overlying shoulder, lateral/medial epicondyle. Teletype Adjuster 5/5 and strength 5/5 bilateral UE. Elbow palpated, no tenderness overlying olecranon. Normal supination, pronation to active/passive ROM and to resisted rotation. Bicep insertion/tricep insertion appear normal without obvious pathology. Rotator cuff evaluated and intact. Normal wrist ROM bilaterally. Normal hand movement, intrinsic muscles of hands normal. No tenderness to palpation of hands/wrists/ elbows. Lower extremity- Hip: Not tender to palpation, no pain, no swelling, edema or erythema of surrounding tissue, normal strength and tone. Normal appearing hip ROM bilaterally without pain. Knee: Knee ROM normal. No tenderness overlying trochanters, no tenderness about patella, quad tendon, patellar tendon. No tenderness at tibial tuberosity. Spine/Ribs- No deformities, masses or tenderness, no known fractures, normal strength, Normal ROM. Normal stability No tenderness along C/T/L spine. Normal appearing ROM about spine. Neurological: General- Moves all 4 extremities symmetrically. Symmetrical face and body posture. Cranial nerves- individually evaluated II-XII and intact. PERRLA, Normal EOMI, visual/special senses appear intact, Face is symmetrical and normal sensation/movement, normal tongue, normal strength/posture of neck musculature. Reflexes- intact with DTR 2+ patellar, Achilles, bicep, brachial, tricep. Ankle clonus normal with 2 beats. Strength- 5/5 bilateral UE and LE. Soft touch- intact bilateral UE and LE. Temperature sensation- intact bilateral UE and LE. Neuropsych: Oriented- Person, place, time. (AAOx3), Mood/affect- normal and congruent. Able to articulate well. Speech-Normal speech, normal rate, normal tone, normal use of language, volume and coherence. Thought content- normal with ability to perform basic computations and apply abstract thought/reason. Associations- intact, no SI/HI, no hallucinations, delusions, obsessions. Judgment/insight- Appropriate. Memory-Recall intact, remote and recent memory intact. Knowledge- Age appropriate fund of knowledge, concentration and attention span normal. Lymphatic: Head/Neck- normal size and non tender to palpation. Axillary- normal size and non tender to palpation. Femoral and Inguinal- normal size and non tender to palpation. - Lab/Tests/Diagnostic Imaging Lab/Tests/Diagnostic Imaging: Laboratory Results - last 24 hr 06/27/18 06/27/18 06/27/18 14:24 14:26 14:35 WBC 13.50 H RBC 4.98 Hgb 15.8 Hct 48.4 MCV 97.2 H MCH 31.7 H MCHC 32.6 RDW Coeff of Leonardo 13.9 Plt Count 250 Immature Gran % (Auto) 0.4 Neut % (Auto) 74.8 Lymph % (Auto) 16.4 [place] % (Auto) 7.5 Eos % (Auto) 0.8 Baso % (Auto) 0.1 Immature Gran # (Auto) 0.1 Neut # (Auto) 10.1 H Lymph # (Auto) 2.2 [place] # (Auto) 1.0 Eos # (Auto) 0.1 Baso # (Auto) 0.0 Puncture Site Rrad O2 Saturation 94.0 L ABG pH 7.439 ABG pCO2 44.4 ABG pO2 69.0 L ABG HCO3 30.1 H ABG Total CO2 31 H ABG Base Excess 6 H Alfonzo Test + O2 Delivery Device Nc Oxygen Liter Flow 2.00 Sodium Potassium Chloride Carbon Dioxide Anion Gap BUN Creatinine Estimated GFR (MDRD) BUN/Creatinine Ratio Glucose Lactic Acid Calcium Total Bilirubin AST ALT Alkaline Phosphatase Total Creatine Kinase Troponin I Total Protein Albumin Globulin Albumin/Globulin Ratio Procalcitonin Influ A Molecular Assay Negative by naat Influ B Molecular Assay Negative by naat 06/27/18 06/27/18 06/27/18 14:35 14:35 14:35 WBC RBC Hgb Hct MCV MCH MCHC RDW Coeff of Leonardo Plt Count Immature Gran % (Auto) Neut % (Auto) Lymph % (Auto) [place] % (Auto) Eos % (Auto) Baso % (Auto) Immature Gran # (Auto) Neut # (Auto) Lymph # (Auto) [place] # (Auto) Eos # (Auto) Baso # (Auto) Puncture Site O2 Saturation ABG pH ABG pCO2 ABG pO2 ABG HCO3 ABG Total CO2 ABG Base Excess Alfonzo Test O2 Delivery Device Oxygen Liter Flow Sodium 132.7 L Potassium 5.07 Chloride 93.0 L Carbon Dioxide 32.5 H Anion Gap 12.27 BUN 49.0 H Creatinine 1.87 H D Estimated GFR (MDRD) 35.00 BUN/Creatinine Ratio 26.20 Glucose 194.6 H Lactic Acid 1.14 Calcium 8.51 Total Bilirubin 2.01 H AST 36.2 ALT 41.3 Alkaline Phosphatase 48.8 L Total Creatine Kinase 61.8 Troponin I 0.013 Total Protein 6.68 Albumin 4.12 Globulin 2.56 Albumin/Globulin Ratio 1.60 Procalcitonin 0.07 Influ A Molecular Assay Influ B Molecular Assay ABG independent interpration was primary metabolic alkalosis with appropriately compensated respiratory acidosis based on the above parameters. CT chest was ordered w/o contrast. Report summary: "Linear atelectasis and consolidation along diaphragmatic surfaces in lower lobes bilaterally, left more than right. May represent pneumonia and suggest correlation. Mild ectasis of descending thoracic aorta 3.3 x 2.9 cm. Simple Right lobe hepatic cyst. ASVD Coronary calcifications noted. Granulomatous disease noted. - Assessment (1) Shortness of breath Status: Acute Code(s): R06.02 - SHORTNESS OF BREATH SNOMED Code(s): 553027997 (2) SIRS (systemic inflammatory response syndrome) Status: Acute Code(s): R65.10 - SIRS OF NON-INFECTIOUS ORIGIN W/O ACUTE ORGAN DYSFUNCTION SNOMED Code(s): 055366963 (3) COPD (chronic obstructive pulmonary disease) Status: Acute Code(s): J44.9 - CHRONIC OBSTRUCTIVE PULMONARY DISEASE, UNSPECIFIED SNOMED Code(s): 46954141 (4) Essential (primary) hypertension Status: Acute Code(s): I10 - ESSENTIAL (PRIMARY) HYPERTENSION SNOMED Code(s) : 38969862 (5) Diabetes mellitus with hemoglobin A1c goal of 7.0%-8.0% Status: Acute Code(s): E11.9 - TYPE 2 DIABETES MELLITUS WITHOUT COMPLICATIONS SNOMED Code(s): 115467923, 053988364 (6) CHF (congestive heart failure) Status: Acute Code(s): I50.9 - HEART FAILURE, UNSPECIFIED SNOMED Code(s): 12118866 (7) CKD (chronic kidney disease) Status: Acute Code(s): N18.9 - CHRONIC KIDNEY DISEASE, UNSPECIFIED SNOMED Code(s): 039858275 - Plan Plan: SOA/SIRS: Recent hospitalization, prolonged. The patient does not look clinically worsened from how he sounded at TCU d/c 48 hours ago. He did present to ER with hypotension, weight loss has been realized and he may actually be somewhat dry. 1 L bolus in ER and he will receive 75ml per hour overnight. His ideal weight/adjusted weight and actual weight were calculated. [place] body weight 110, adjusted body weight 160lb. Based on his current weight of 235 his rate of maintenance fluid would be 145ml/hour and at adjusted weight he would be at 113ml/hour. The patient will do fine at 75ml/hour. Procalc and lactic acid negative. Vitals better on floor, he seemed to be better after the fluid bolus in the ER. Again, I suspect he was clinically dehydrated and will benefit from some fluid. CURB 65 score is high. He has had recent abx, recent hospital stay and recent short stay TCU stay. I will change him from rocephin and levaquin to cefepime and levaquin. He is not on ventilator, awaiting MRSA screen. I will also add vancomycin to cover patient as he has had recent use of Respiratory FQ. Patient is high risk based on age and cardicac, Diabetic, pulmonary, hypotensive issues. Close monitoring overnight encouraged. Nursing aware. - Admit inpatient - Telemetry - IO q shift - Strict weights daily - Duoneb QID - ALbuterol Q4 hours prn neb - Change abx from rocephin 1 gram daily and levaquin 500 daily. - Cefepime 2gram daily , levaquin 750 daily x 5 days starting 06/28/18. - Add vancomycin. - IV steroids for now, consider d/c in next 24-48 hours. - O2 titrate 92-98%. Psuedohyponatremia: Correct to normal 135 when corrected for glucose. WE will repeat CMP tomorrow. - CMP tomorrow am. CHF (congestive heart failure) (Acute): Does not appear to be actively problematic. Chronic peripheral edema does not appear to be related. Weight is down significantly from admit early may. ODILON/CKD (chronic kidney disease) (Acute): 1L bolus in Er plus fluids overnight will likely benefit the patient. - Repeat CMP in am - Continue fluids at 75ml/hour. Diabetes mellitus with hemoglobin A1c goal of 7.0%-8.0% (Acute): A1C ordered/ pending. Received phone call from nurses 06/27/18 20:20 that sugars >400. I will add SSI to him, continue home meds. - A1C - Home meds - SSI to be added per Dr. Ramirez order set. - Accucheck q 4 hours. Skin Breakdown Left ear: Padded O2 tubing barrier cream topically. Essential (primary) hypertension (Acute): ON [id number] BID, zestril 5mg, history of hyperkalemia. Continue coreg 3.125 BID. Continue to monitor. - CMP tomorrow, monitor K+ - Monitor vitals. Hypthyroidism: TSH normal last check within 8 weeks. We will continue home dose of rx. Edema of both legs (Chronic): Recommended DORA hosing. Patient wants to think about it before wearing compression. For now elevated. Sitting in bedside chair. Diet: Diabetic 1800kcal. Activity: UP with assist DVT prophy: CrCl based on [place] was >30 so we will use 40mg subcut. - Lovenox due to prolonged bedrest. Disposition: Patient to be admitted inpatient, accepted on behalf of PCP DR. Ramirez. Patient has had prolonged hospital stay this month with recent d/c from TCU 48 hours ago. The patient does not seem to be as sick now as at presentation in ER, however he was hypotensive, felt much better after 1 L bolus. Now on 75ml/hour which is ~3/4 maintenance and should be okay for him. Lungs are coarse, sounds chronic. He does have some ABG changes, CT suggestive of possible pneumonia. CURB-65 score of 4 points suggests 27.8-30% mortality in next 30 days. Inpatient vs consider ICU admit is reasonable. Based on his presentation inpatient admission is reasonable. Started on rocephin and levaquin. As noted above, I will change this to cefepime and add vanco. Blood cultures ordered. Sepsis w/u negative so far. We will address his BG. Monitor for elevation of K+, monitor renal function. Expected length of stay likely 48 to 72 hours. Patient is a return within 30 days. >70 minutes spent today on this admission.
[2018-06-27] MEDS: SODIUM CHLORIDE 1,000 ML IV SCH (17:15)
[2018-06-27] MEDS: SOLU-MEDROL 40 MG IVP SCH ×2 (17:24→20:47)
[2018-06-27] MEDS ORDERED: COREG PO SCH (17:30)
[2018-06-27] MEDS ORDERED: LOVENOX SUBCUT SCH (20:30)
[2018-06-27] MEDS: FLOMAX PO SCH (20:47)
[2018-06-27] MEDS: ATIVAN PO SCH (20:47)
[2018-06-27] MEDS: PRAVACHOL PO SCH (20:47)
[2018-06-27] MEDS ORDERED: VANCOMYCIN 1 GM in SODIUM CHLORIDE 250 ML IV SCH (21:00)
[2018-06-27] MEDS: HUMULIN R SUBCUT PRN (21:38)
[2018-06-28] MEDS: SODIUM CHLORIDE 1,000 ML IV SCH ×4 (01:32→18:03)
[2018-06-28] MEDS: DUONEB NEB SCH ×4 (04:40→23:00)
[2018-06-28] MEDS: HUMULIN R SUBCUT PRN ×5 (05:53→21:26)
[2018-06-28] MEDS: LASIX TAB PO SCH (06:53)
[2018-06-28] MEDS: SYNTHROID PO SCH (06:53)
[2018-06-28] MEDS: LEVAQUIN 500 MG in PREMIX 100 ML D5W 1 BAG IV SCH (08:55)
[2018-06-28] MEDS: ALDACTONE PO SCH (08:56)
[2018-06-28] MEDS: ZYLOPRIM PO SCH (08:56)
[2018-06-28] MEDS: SOLU-MEDROL 40 MG IVP SCH ×2 (08:56→21:25)
[2018-06-28] MEDS ORDERED: MAXIPIME 2 GM in SODIUM CHLORIDE 100 ML IV SCH (09:00)
[2018-06-28] MEDS ORDERED: ZESTRIL PO SCH (09:00)
[2018-06-28] MEDS ORDERED: LEVAQUIN 750 MG in PREMIX 150 ML D5W 1 BAG IV SCH (09:00)
[2018-06-28] MEDS ORDERED: LASIX TAB PO SCH (09:00)
[2018-06-28] MEDS ORDERED: ZAROXOLYN PO SCH (09:00)
[2018-06-28] MEDS ORDERED: LEVAQUIN 500 MG in PREMIX 100 ML D5W 1 BAG IV SCH (09:00)
--- NOTE | 2018-06-28 14:04 | CT ---
EXAM: CT of the cervical spine without contrast History: Cervical neck pain. Comparison: None available. Technique: Multiplanar CT images through the cervical spine were obtained without the administration of IV contrast Findings: The visualized upper lungs are clear. The visualized airway remains patent. There is some motion artifact which limits evaluation. No acute fracture or subluxation. No prevertebral soft tissue swelling. Predental space is not wide kelvin. Moderate to severe multilevel disc space narrowing with endplate sclerosis and osteophyte forma tion. C2-3: No significant bony central canal stenosis. Mild to moderate right and no significant left bon y neural foraminal narrowing secondary to uncovertebral and facet hypertrophy. C3-4: No significant bony central canal stenosis. Severe right and moderate left bony neural forami nal narrowing secondary to uncovertebral and facet hypertrophy. C4-5: No significant bony central canal stenosis. Severe bilateral bony neural foraminal narrowing secondary to uncovertebral and facet hypertrophy. C5-6: No significant bony central canal stenosis. Severe right and mild to moderate left bony neura l foraminal narrowing secondary to uncovertebral and facet hypertrophy. C6-7: No significant bony central canal stenosis. Moderate bilateral bony neural foraminal narrowin g secondary to uncovertebral and facet hypertrophy and worse on the left. Impression: 1. No acute osseous abnormality of the cervical spine. 2. Degenerative changes with level by level analysis as detailed above
[2018-06-28] MEDS: FLOMAX PO SCH (21:24)
[2018-06-28] MEDS: PRAVACHOL PO SCH (21:24)
[2018-06-28] MEDS: ATIVAN PO SCH (21:25)
[2018-06-28] MEDS: LOVENOX SUBCUT SCH (21:25)
[2018-06-29] MEDS: DUONEB NEB SCH ×4 (04:45→21:15)
[2018-06-29] MEDS: SODIUM CHLORIDE 1,000 ML IV SCH ×2 (05:30→16:52)
[2018-06-29] MEDS: LASIX TAB PO SCH (05:33)
[2018-06-29] MEDS: SYNTHROID PO SCH (05:33)
[2018-06-29] MEDS: HUMULIN R SUBCUT PRN ×4 (05:33→20:39)
[2018-06-29] MEDS: SOLU-MEDROL 40 MG IVP SCH ×2 (08:14→20:36)
[2018-06-29] MEDS: ZYLOPRIM PO SCH (08:14)
[2018-06-29] MEDS: LEVAQUIN 500 MG in PREMIX 100 ML D5W 1 BAG IV SCH (08:14)
[2018-06-29] MEDS: COLACE PO SCH (08:15)
[2018-06-29] MEDS: ALDACTONE PO SCH (08:15)
--- NOTE | 2018-06-29 08:45 | PCM.PROG ---
Attending Provider: ATTENDING PROVIDER: [facility] This patient is seen with Lizette Latham, Nurse Practitioner. DATE OF SERVICE: 06/28/18 SUBJECTIVE: This 83 year old WHITE/ M was hospitalized 06/27/18. The patient is sitting in chair resting comfortably. He is anxious and short of breath. REVIEW OF SYSTEMS: CONSTITUTIONAL: No night sweats. No fatigue, malaise, lethargy. No fever or chills. HEENT: Eyes: No visual changes. No eye pain. No eye discharge. ENT: No runny nose. No epistaxis. No sinus pain. No odynophagia. No congestion. RESPIRATORY: No cough, no congestion. No hemoptysis. Shortness of breath. CARDIOVASCULAR: No angina symptoms. No CHF symptoms. No atypical chest pain for CAD. No palpitations. No orthopnea. GASTROINTESTINAL: No abdominal pain. No nausea or vomiting. No diarrhea or constipation. No hematemesis. No hematochezia. GENITOURINARY: No urgency. No frequency. No dysuria. No hematuria. No obstructive symptoms. No discharge. No pain. No significant abnormal bleeding. MUSCULOSKELETAL: No musculoskeletal pain; no joint swelling. NEUROLOGICAL: Awake, alert, oriented to time, place and person. No headache. No neck pain. No syncope. No seizures. No dizziness. PSYCHIATRIC: Anxiety. No depression. No suicidal thoughts. No homicidal thoughts. SKIN: No rash. No lesions. No wounds. ENDOCRINE: No unexplained weight loss. No weight gain. HEMATOLOGIC/LYMPHATIC: No anemia. No purpura. No petechiae. No prolonged or excessive bleeding. No palpable lymph nodes. PHYSICAL EXAMINATION: GENERAL: The patient is awake, alert and oriented, sitting in bed in no distress. VITAL SIGNS: Temperature 97.7 F, Pulse 80, Respiratory Rate 20, BP 97/58, Pulse Ox 96% HEENT: Head normocephalic, atraumatic. Eyes: Extraocular muscles are intact. Pupils are equal, round and reactive to light and accommodation. Ears: No lesions. Nose appeared normal. Throat: No exudate or erythema. NECK: Supple. No JVD, no carotid bruit. No lymphadenopathy or thyromegaly. LUNGS: Diminished breath sounds. Clear to auscultation. Percussion note normal. Chest symmetrical. HEART: S1, S2, no S3. No murmurs. No cyanosis or clubbing. No ascites. Pulses: Dorsalis pedis and posterior tibial pulses +1 to +2 both sides. ABDOMEN: Soft. Non-tender. Bowel sounds active. No CVA tenderness. No mass felt. EXTREMITIES: +1 bilateral leg edema, which is unchanged. Full range of motion of all extremities, equal. NEUROLOGIC: No focal deficit. Cranial nerves II through XII are grossly intact. No headache, no double vision or headache. SKIN: Not dry. Intact. Turgor-normal. LYMPHATIC: No palpable lymph nodes/no lymphedema. MUSCULOSKELETAL: Normal joints with no swelling. Muscle tone is normal. LAB REVIEW: 06/28/18 04:13 06/28/18 04:13 06/28/18 04:13: Sodium 132.4 L, Potassium 4.67, Chloride 95.7 L, Carbon Dioxide 31.7 H, Anion Gap 9.67, BUN 43.3 H, Creatinine 1.46 H, Estimated GFR (MDRD) 46.00, BUN/Creatinine Ratio 29.65, Glucose 258.3 H D, Calcium 7.88 L, Total Bilirubin 1.07, AST 19.3, ALT 32.4, Alkaline Phosphatase 55.2 L, Total Creatine Kinase 33.9 L, Troponin I < 0.012, Total Protein 5.58 L, Albumin 3.27 L, Globulin 2.31, Albumin/Globulin Ratio 1.41 06/28/18 04:13: WBC 10.81 H, RBC 4.29 L, Hgb 13.3 L, Hct 41.8 L D, MCV 97.4 H, MCH 31.0, MCHC 31.8, RDW Coeff of Leonardo 13.9, Plt Count 206, Immature Gran % (Auto ) 0.4, Neut % (Auto) 89.9, Lymph % (Auto) 8.0 L, [place] % (Auto) 1.6, Eos % (Auto ) 0.0, Baso % (Auto) 0.1, Immature Gran # (Auto) 0.0, Neut # (Auto) 9.7 H, Lymph # (Auto) 0.9, [place] # (Auto) 0.2 L, Eos # (Auto) 0.0, Baso # (Auto) 0.0 06/28/18 01:45: Urine Color Yellow, Urine Clarity Clear, Urine pH 5.0, Ur Specific [place] 1.015, Urine Protein Negative, Urine Glucose (UA) 2+, Urine Ketones 1+, Urine Blood Negative, Urine Nitrite Negative, Urine Bilirubin Negative, Urine Urobilinogen 0.2, Ur Leukocyte Esterase Negative 06/27/18 21:55: Total Creatine Kinase 49.0 L, Troponin I < 0.012 06/27/18 14:35: Lactic Acid 1.14 06/27/18 14:35: Procalcitonin 0.07 06/27/18 14:35: Sodium 132.7 L, Potassium 5.07, Chloride 93.0 L, Carbon Dioxide 32.5 H, Anion Gap 12.27, BUN 49.0 H, Creatinine 1.87 H D, Estimated GFR (MDRD) 35.00, BUN/Creatinine Ratio 26.20, Glucose 194.6 H, Calcium 8.51, Total Bilirubin 2.01 H, AST 36.2, ALT 41.3, Alkaline Phosphatase 48.8 L, Total Creatine Kinase 61.8, Troponin I 0.013, Total Protein 6.68, Albumin 4.12, Globulin 2.56, Albumin/Globulin Ratio 1.60 06/27/18 14:35: WBC 13.50 H, RBC 4.98, Hgb 15.8, Hct 48.4, MCV 97.2 H, MCH 31.7 H, MCHC 32.6, RDW Coeff of Leonardo 13.9, Plt Count 250, Immature Gran % (Auto) 0.4, Neut % (Auto) 74.8, Lymph % (Auto) 16.4, [place] % (Auto) 7.5, Eos % (Auto) 0.8, Baso % (Auto) 0.1, Immature Gran # (Auto) 0.1, Neut # (Auto) 10.1 H, Lymph # ( Auto) 2.2, [place] # (Auto) 1.0, Eos # (Auto) 0.1, Baso # (Auto) 0.0 06/27/18 14:26: Influ A Molecular Assay Negative by naat, Influ B Molecular Assay Negative by naat 06/27/18 14:24: Puncture Site Rrad, O2 Saturation 94.0 L, ABG pH 7.439, ABG pCO2 44.4, ABG pO2 69.0 L, ABG HCO3 30.1 H, ABG Total CO2 31 H, ABG Base Excess 6 H, Alfonzo Test +, O2 Delivery Device Nc, Oxygen Liter Flow 2.00 ASSESSMENT: 1. Shortness of breath. 2. Acute on chronic renal failure. 3. Questionable pneumonia per CT. 4. Anxiety. 5. Leg edema. 6. Severe COPD now oxygen dependent. PLAN: 1. X-ray c-spine. 2. D/C Zaroxolyn. 3. Decrease fluids to 50 cc/hr. 4. D/C Vancomycin. 5. D/C Cefepime. 6. Decrease Levaquin to 500 mg. Plan and coordination of the patient's care discussed in the presence of Casting Cleaner and nurse. CONDITION: Stable SCRIBED BY: JOCELINE VINSON [employer] Field Coordinator scribed while in presence of service performed by Dr. Ramirez/Lizette Latham APRN on 06/28/18 ([id number])
--- NOTE | 2018-06-29 09:00 | PCM.PROG ---
Attending Provider: ATTENDING PROVIDER: Dr. MACKENZIE FUENTES DATE OF SERVICE: 06/29/18 SUBJECTIVE: This 83 year old WHITE/ M was hospitalized 06/27/18. The patient is hospitalized with renal azotemia, possible pneumonia. The patient very likely has atelectasis with some pulmonary congestion. The patient is feeling better. He is breathing better. He is afebrile and is hypotensive. He is on IV fluids with improvement in creatinine and BUN. Blood sugar is high 267 from steroids. REVIEW OF SYSTEMS: CONSTITUTIONAL: No night sweats. No fatigue, malaise, lethargy. No fever or chills. HEENT: Eyes: No visual changes. No eye pain. No eye discharge. ENT: No runny nose. No epistaxis. No sinus pain. No odynophagia. No congestion. RESPIRATORY: No cough, no congestion. No hemoptysis. No shortness of breath. CARDIOVASCULAR: No angina symptoms. No CHF symptoms. No atypical chest pain for CAD. No palpitations. No orthopnea.. GASTROINTESTINAL: No abdominal pain. No nausea or vomiting. No diarrhea. Mild constipation. No hematemesis. No hematochezia. GENITOURINARY: No urgency. No frequency. No dysuria. No hematuria. No obstructive symptoms. No discharge. No pain. No significant abnormal bleeding. MUSCULOSKELETAL: No musculoskeletal pain; no joint swelling. NEUROLOGICAL: Awake, alert, oriented to time, place and person. No headache. No neck pain. No syncope. No seizures. No dizziness. PSYCHIATRIC: Not anxious. No depression. No suicidal thoughts. No homicidal thoughts. SKIN: No rash. No lesions. No wounds. ENDOCRINE: No unexplained weight loss. No weight gain. HEMATOLOGIC/LYMPHATIC: No anemia. No purpura. No petechiae. No prolonged or excessive bleeding. No palpable lymph nodes. PHYSICAL EXAMINATION: GENERAL: The patient is awake, alert and oriented, lying in bed in no distress. VITAL SIGNS: Temperature 97.6 F, Pulse 60, Respiratory Rate 17, BP 93/54, Pulse Ox 96% HEENT: Head normocephalic, atraumatic. Eyes: Extraocular muscles are intact. Pupils are equal, round and reactive to light and accommodation. Ears: No lesions. Nose appeared normal. Throat: No exudate or erythema. NECK: Supple. No JVD, no carotid bruit. No lymphadenopathy or thyromegaly. LUNGS: Decreased air entry; dry creps both sides. Percussion note normal. Chest symmetrical. HEART: S1, S2, no S3. No murmurs. No cyanosis or clubbing. No ascites. Pulses: Dorsalis pedis and posterior tibial pulses +1 to +2 both sides. ABDOMEN: Soft. Non-tender. Bowel sounds active. No CVA tenderness. No mass felt. EXTREMITIES: +1 non pitting edema seems to be chronic. Full range of motion of all extremities, equal. NEUROLOGIC: No focal deficit. Cranial nerves II through XII are grossly intact. No headache, no double vision or headache. SKIN: Warm and dry. Intact. Turgor-normal. LYMPHATIC: No palpable lymph nodes/no lymphedema. MUSCULOSKELETAL: Normal joints with no swelling. Muscle tone is normal. LAB REVIEW: 06/29/18 04:40 06/29/18 04:40 06/29/18 04:40: Sodium 131.9 L, Potassium 4.95, Chloride 97.9 L, Carbon Dioxide 29.6, Anion Gap 9.35, BUN 37.0 H, Creatinine 1.15 H, Estimated GFR (MDRD) 61.00 , BUN/Creatinine Ratio 32.17, Glucose 267.5 H, Calcium 7.97 L, Total Bilirubin 1.02, AST 20.3, ALT 30.6, Alkaline Phosphatase 53.5 L, Total Protein 5.51 L, Albumin 3.24 L, Globulin 2.27, Albumin/Globulin Ratio 1.42 06/29/18 04:40: WBC 14.10 H, RBC 4.08 L, Hgb 12.8 L, Hct 39.7 L, MCV 97.3 H, MCH 31.4 H, MCHC 32.2, RDW Coeff of Leonardo 13.7, Plt Count 198, Immature Gran % ( Auto) 0.5, Neut % (Auto) 91.3, Lymph % (Auto) 5.2 L, [place] % (Auto) 2.9, Eos % ( Auto) 0.0, Baso % (Auto) 0.1, Immature Gran # (Auto) 0.1, Neut # (Auto) 12.9 H, Lymph # (Auto) 0.7, [place] # (Auto) 0.4, Eos # (Auto) 0.0, Baso # (Auto) 0.0 ASSESSMENT: 1. Renal azotemia with aggressive diuretic therapy. 2. Dehydration. 3. Worsening of bronchitis or pneumonia after discharge. PLAN: 1. IV fluids - watch for fluid overload. 2. Hold antihypertensive medications. 3. Stool softener. Plan and coordination of the patient's care discussed in the presence of Inserter Operator and nurse. CONDITION: Stable SCRIBED BY: JOCELINE VINSON Hand Riveter scribed while in presence of service performed by Dr. MACKENZIE FUENTES on 06/29/18 ([id number])
[2018-06-29] MEDS: FLOMAX PO SCH (20:36)
[2018-06-29] MEDS: PRAVACHOL PO SCH (20:36)
[2018-06-29] MEDS: ATIVAN PO SCH (20:36)
[2018-06-29] MEDS: LOVENOX SUBCUT SCH (20:41)
[2018-06-30] MEDS: DUONEB NEB SCH ×4 (04:50→23:05)
[2018-06-30] MEDS: LASIX TAB PO SCH (05:55)
[2018-06-30] MEDS: SYNTHROID PO SCH (05:55)
[2018-06-30] MEDS: HUMULIN R SUBCUT PRN ×4 (05:59→20:54)
[2018-06-30] MEDS: LEVAQUIN 500 MG in PREMIX 100 ML D5W 1 BAG IV SCH (08:51)
[2018-06-30] MEDS: PREDNISONE PO SCH (08:51)
[2018-06-30] MEDS: ALDACTONE PO SCH (08:51)
[2018-06-30] MEDS: COREG PO SCH ×2 (08:51→16:56)
[2018-06-30] MEDS: ZYLOPRIM PO SCH (08:51)
[2018-06-30] MEDS: COLACE PO SCH (08:51)
[2018-06-30] MEDS: SODIUM CHLORIDE 1,000 ML IV SCH (08:57)
--- NOTE | 2018-06-30 09:03 | PCM.PROG ---
Attending Provider: ATTENDING PROVIDER: Dr. MACKENZIE FUENTES This patient is seen with Lizette Latham, Nurse Practitioner. DATE OF SERVICE: 06/30/18 SUBJECTIVE: This 83 year old WHITE/ M was hospitalized 06/27/18. The patient is sitting in chair resting comfortably. He states breathing is better. He has more energy. REVIEW OF SYSTEMS: CONSTITUTIONAL: No night sweats. No fatigue, malaise, lethargy. No fever or chills. HEENT: Eyes: No visual changes. No eye pain. No eye discharge. ENT: No runny nose. No epistaxis. No sinus pain. No odynophagia. No congestion. RESPIRATORY: Positive for cough and shortness of breath. No hemoptysis. CARDIOVASCULAR: No angina symptoms. No CHF symptoms. No atypical chest pain for CAD. No palpitations. No orthopnea.. GASTROINTESTINAL: No abdominal pain. No nausea or vomiting. No diarrhea or constipation. No hematemesis. No hematochezia. GENITOURINARY: No urgency. No frequency. No dysuria. No hematuria. No obstructive symptoms. No discharge. No pain. No significant abnormal bleeding. MUSCULOSKELETAL: No musculoskeletal pain; no joint swelling. NEUROLOGICAL: Awake, alert, oriented to time, place and person. No headache. No neck pain. No syncope. No seizures. No dizziness. PSYCHIATRIC: Not anxious. No depression. No suicidal thoughts. No homicidal thoughts. SKIN: No rash. No lesions. No wounds. ENDOCRINE: No unexplained weight loss. No weight gain. HEMATOLOGIC/LYMPHATIC: No anemia. No purpura. No petechiae. No prolonged or excessive bleeding. No palpable lymph nodes. PHYSICAL EXAMINATION: GENERAL: The patient is awake, alert and oriented, sitting in chair in no distress. VITAL SIGNS: Temperature 97.6 F, Pulse 109, Respiratory Rate 16, BP 104/65, Pulse Ox 97% HEENT: Head normocephalic, atraumatic. Eyes: Extraocular muscles are intact. Pupils are equal, round and reactive to light and accommodation. Ears: No lesions. Nose appeared normal. Throat: No exudate or erythema. NECK: Supple. No JVD, no carotid bruit. No lymphadenopathy or thyromegaly. LUNGS: Diminished breath sounds but clear to auscultation. Percussion note normal. Chest symmetrical. HEART: S1, S2, no S3. No murmurs. No cyanosis or clubbing. No ascites. Pulses: Dorsalis pedis and posterior tibial pulses +1 to +2 both sides. ABDOMEN: Soft. Non-tender. Bowel sounds active. No CVA tenderness. No mass felt. EXTREMITIES: Trace bilateral lower extremity edema. Full range of motion of all extremities, equal. NEUROLOGIC: No focal deficit. Cranial nerves II through XII are grossly intact. No headache, no double vision or headache. SKIN: Not dry. Intact. Turgor-normal. LYMPHATIC: No palpable lymph nodes/no lymphedema. MUSCULOSKELETAL: Normal joints with no swelling. Muscle tone is normal. LAB REVIEW: 06/30/18 04:43 06/30/18 04:43 06/30/18 04:43: Sodium 135.0, Potassium 4.56, Chloride 98.2, Carbon Dioxide 29.8 , Anion Gap 11.56, BUN 33.4 H, Creatinine 1.21 H, Estimated GFR (MDRD) 57.00, BUN/Creatinine Ratio 27.60, Glucose 289.5 H, Calcium 8.24 L, Total Bilirubin 0.83, AST 21.8, ALT 34.8, Alkaline Phosphatase 58.1, Total Protein 5.55 L, Albumin 3.43 L, Globulin 2.12, Albumin/Globulin Ratio 1.61 06/30/18 04:43: WBC 11.94 H, RBC 4.13 L, Hgb 13.0 L, Hct 40.1 L, MCV 97.1 H, MCH 31.5 H, MCHC 32.4, RDW Coeff of Leonardo 13.5, Plt Count 200, Immature Gran % ( Auto) 0.3, Neut % (Auto) 91.2, Lymph % (Auto) 5.3 L, [place] % (Auto) 3.1, Eos % ( Auto) 0.0, Baso % (Auto) 0.1, Immature Gran # (Auto) 0.0, Neut # (Auto) 10.9 H, Lymph # (Auto) 0.6, [place] # (Auto) 0.4, Eos # (Auto) 0.0, Baso # (Auto) 0.0 ASSESSMENT: 1. Renal azotemia with aggressive diuretic therapy. 2. Dehydration. 3. Worsening of bronchitis or pneumonia after discharge. PLAN: 1. Anticipate discharge tomorrow. 2. Stop IV fluids. 3. Stop Levaquin after tomorrow. 4. Prednisone 10 mg p.o. daily. 5. D/C Solu-Medrol. 6. Resume Coreg. Plan and coordination of the patient's care discussed in the presence of Tutorial Laboratory Supervisor and nurse. CONDITION: Stable SCRIBED BY: JOCELINE VINSON Civil Engineering Teacher scribed while in presence of service performed by Dr. Fuentes/Lizette Latham APRN on 06/30/18 ([id number])
[2018-06-30] MEDS: LOVENOX SUBCUT SCH (20:53)
[2018-06-30] MEDS: PRAVACHOL PO SCH (20:56)
[2018-06-30] MEDS: ATIVAN PO SCH (20:56)
[2018-06-30] MEDS: FLOMAX PO SCH (20:56)
[2018-07-01] MEDS: DUONEB NEB SCH ×2 (04:50→11:10)
[2018-07-01] MEDS: LASIX TAB PO SCH (05:30)
[2018-07-01] MEDS: SYNTHROID PO SCH (05:30)
[2018-07-01 05:31] VITALS: BP 106/70; TEMP 97.9
[2018-07-01] MEDS: HUMULIN R SUBCUT PRN ×2 (05:41→11:05)
[2018-07-01] MEDS: LEVAQUIN 500 MG in PREMIX 100 ML D5W 1 BAG IV SCH (08:19)
[2018-07-01] MEDS: COREG PO SCH (08:19)
[2018-07-01] MEDS: PREDNISONE PO SCH (08:20)
[2018-07-01] MEDS: ZYLOPRIM PO SCH (08:20)
[2018-07-01] MEDS: ALDACTONE PO SCH (08:21)
[2018-07-01] MEDS: COLACE PO SCH (08:21)
--- NOTE | 2018-07-01 09:08 | PCM.PROG ---
Attending Provider: ATTENDING PROVIDER: Dr. MACKENZIE FUENTES This patient is seen with Lizette Latham, Nurse Practitioner. DATE OF SERVICE: 07/01/18 SUBJECTIVE: This 83 year old WHITE/ M was hospitalized 06/27/18. The patient is sitting in chair resting comfortably. He has been up and about walking. Shortness of breath is improved. He is ready to be discharged today. He will still need Home Health for PT and nursing care. Discussed prepackaging of medications from [facility] to reduce confusion for the patient. REVIEW OF SYSTEMS: CONSTITUTIONAL: Weakness. No night sweats. No malaise, lethargy. No fever or chills. HEENT: Eyes: No visual changes. No eye pain. No eye discharge. ENT: No runny nose. No epistaxis. No sinus pain. No odynophagia. No congestion. RESPIRATORY: No cough, no congestion. No hemoptysis. Shortness of breath with exertion. CARDIOVASCULAR: No angina symptoms. No CHF symptoms. No atypical chest pain for CAD. No palpitations. No orthopnea.. GASTROINTESTINAL: No abdominal pain. No nausea or vomiting. No diarrhea or constipation. No hematemesis. No hematochezia. GENITOURINARY: No urgency. No frequency. No dysuria. No hematuria. No obstructive symptoms. No discharge. No pain. No significant abnormal bleeding. MUSCULOSKELETAL: No musculoskeletal pain; no joint swelling. NEUROLOGICAL: Awake, alert, oriented to time, place and person. No headache. No neck pain. No syncope. No seizures. No dizziness. PSYCHIATRIC: Not anxious. No depression. No suicidal thoughts. No homicidal thoughts. SKIN: No rash. No lesions. No wounds. ENDOCRINE: No unexplained weight loss. No weight gain. HEMATOLOGIC/LYMPHATIC: No anemia. No purpura. No petechiae. No prolonged or excessive bleeding. No palpable lymph nodes. PHYSICAL EXAMINATION: GENERAL: The patient is awake, alert and oriented, sitting in chair in no distress. VITAL SIGNS: Temperature 97.9 F, Pulse 66, Respiratory Rate 16, BP 106/70, Pulse Ox 100% HEENT: Head normocephalic, atraumatic. Eyes: Extraocular muscles are intact. Pupils are equal, round and reactive to light and accommodation. Ears: No lesions. Nose appeared normal. Throat: No exudate or erythema. NECK: Supple. No JVD, no carotid bruit. No lymphadenopathy or thyromegaly. LUNGS: Diminished breath sounds but clear to auscultation. Percussion note normal. Chest symmetrical. HEART: S1, S2, no S3. No murmurs. No cyanosis or clubbing. No ascites. Pulses: Dorsalis pedis and posterior tibial pulses +1 to +2 both sides. ABDOMEN: Soft. Non-tender. Bowel sounds active. No CVA tenderness. No mass felt. EXTREMITIES: Trace leg edema bilaterally. Full range of motion of all extremities, equal. NEUROLOGIC: No focal deficit. Cranial nerves II through XII are grossly intact. No headache, no double vision or headache. SKIN: Not dry. Intact. Turgor-normal. LYMPHATIC: No palpable lymph nodes/no lymphedema. MUSCULOSKELETAL: Normal joints with no swelling. Muscle tone is normal. LAB REVIEW: 07/01/18 05:00 07/01/18 05:00 07/01/18 05:00: Sodium 134.5, Potassium 3.81, Chloride 96.7 L, Carbon Dioxide 32.8 H, Anion Gap 8.81, BUN 30.8 H, Creatinine 1.28 H, Estimated GFR (MDRD) 54.00, BUN/Creatinine Ratio 24.06, Glucose 161.1 H, Calcium 8.44, Total Bilirubin 1.03, AST 27.0, ALT 40.3, Alkaline Phosphatase 57.3, Total Protein 5.63 L, Albumin 3.35 L, Globulin 2.28, Albumin/Globulin Ratio 1.46 07/01/18 05:00: WBC 9.32, RBC 4.13 L, Hgb 13.2 L, Hct 40.5 L, MCV 98.1 H, MCH 32.0 H, MCHC 32.6, RDW Coeff of Leonardo 13.8, Plt Count 169, Immature Gran % (Auto) 0.4, Neut % (Auto) 73.1, Lymph % (Auto) 17.8, [place] % (Auto) 8.3, Eos % (Auto) 0.3, Baso % (Auto) 0.1, Immature Gran # (Auto) 0.0, Neut # (Auto) 6.8, Lymph # ( Auto) 1.7, [place] # (Auto) 0.8, Eos # (Auto) 0.0, Baso # (Auto) 0.0 ASSESSMENT: 1. Renal azotemia with aggressive diuretic therapy. 2. Dehydration. 3. Worsening of bronchitis or pneumonia after discharge. PLAN: 1. Discharge home. 2. Levaquin 250 mg daily times 5 days. 3. Prednisone 10 mg daily for 5 days. 4. Keep legs elevated. 5. Wear oxygen. 6. Will see in followup next week. 7. Weigh daily. 8. Keep [facility] for PT/OT nursing. 9. Would benefit from prepackaging of medications with [facility]. 10. Arrange for patient to have oxygen generator through [facility]. Plan and coordination of the patient's care discussed in the presence of Flame Gouger and nurse. CONDITION: Stable SCRIBED BY: JOCELINE VINSON, Keg Header scribed while in presence of service performed by Dr. Fuentes/Lizette Latham APRN on 07/01/18 ([id number])
--- NOTE | 2018-07-01 11:16 | CM.DICTOOL ---
ADMISSION: 06/27/18 15:57 DISCHARGE: JULY 01, 2018 DATE OF SERVICE: 07/01/18 FINAL DIAGNOSIS RENAL AZOTEMIA DEHYDRATION PNEUMONIA/BRONCHITIS HYPOTENSION CHRONIC LEG EDEMA DM, TYPE 2 COPD (SEVERE PER PFT 05/2018) HYPOTHYROID HYPERTENSION CHF DYSLIPIDEMIA BPH COR PULMONALE B 12 DEFICIENCY GOUT ECHOCARDIOGRAM (05/2018) LVH ENLARGED RIGHT VENTRICLE LVEF 72% LAST VITALS Temp Pulse Resp BP Pulse Ox 97.9 F 66 16 106/70 100 07/01/18 05:27 07/01/18 05:27 07/01/18 05:27 07/01/18 05:27 07/01/18 05:27 TAKE THESE MEDICATIONS AT HOME Albuterol/Ipratropium (Duoneb) 1 vial NEB RT BID [facility] Last Admin: 07/01/18 04:50 Dose: 1 vial Allopurinol (Zyloprim) 200 mg PO DAILY [facility] Last Admin: 07/01/18 08:20 Dose: 200 mg Carvedilol (Coreg) 3.125 mg PO BIDWM [facility] Last Admin: 07/01/18 08:19 Dose: 3.125 mg Furosemide (Lasix Tab) 40 mg PO QDAC [facility] Last Admin: 07/01/18 05:30 Dose: 40 mg Levofloxacin 250 MG PO DAILY [facility] FOR 5 DAYS Last Admin: 07/01/18 08:19 Dose: 100 mls/hr Levothyroxine Sodium (Synthroid) 100 mcg PO QDAC [facility] Last Admin: 07/01/18 05:30 Dose: 100 mcg Lorazepam (Ativan) 0.5 mg PO BEDTIME [facility] Last Admin: 06/30/18 20:56 Dose: 0.5 mg Pravastatin Sodium (Pravachol) 40 mg PO BEDTIME [facility] Last Admin: 06/30/18 20:56 Dose: 40 mg Prednisone (Prednisone) 10 mg PO DAILYWM [facility] FOR 5 DAYS Last Admin: 07/01/18 08:20 Dose: 10 mg Spironolactone (Aldactone) 25 mg PO DAILY [facility] Last Admin: 07/01/18 08:21 Dose: 25 mg Tamsulosin HCl (Flomax) 0.4 mg PO BEDTIME [facility] Last Admin: 06/30/18 20:56 Dose: 0.4 mg Symbicort 160-4.5 MCG IH 1 PUFF [facility] DAILY Last Admin: ALLERGIES No Known Allergies Allergy (Verified 06/27/18 14:40) DISCONTINUED MEDICATIONS ZAROXOLYN NEW PRESCRIPTIONS: LEVAQUIN 250 MG PO DAILY FOR 5 DAYS PREDNISONE 10 MG PO DAILY FOR 5 DAYS REFILL RX GIVEN FOR COREG 3.125 MG BID LASIX 40 MG DAILY LEVOTHYROXINE 100 MCG DAILY PRAVASTATIN 40 MG AT BEDTIME TAMSULOSIN 0.4 MG AT BEDTIME SMOKING: NOT APPLICABLE DISEASE SPECIFIC EDUCATION: ELEVATING LEGS MEDICATION CHANGE USE OF OXYGEN CONTINUOUSLY USE OF NEBULIZER TREATMENT APPOINTMENT LAB REVIEW: 07/01/18 05:00 07/01/18 05:00 07/01/18 05:00: Sodium 134.5, Potassium 3.81, Chloride 96.7 L, Carbon Dioxide 32.8 H, Anion Gap 8.81, BUN 30.8 H, Creatinine 1.28 H, Estimated GFR (MDRD) 54.00, BUN/Creatinine Ratio 24.06, Glucose 161.1 H, Calcium 8.44, Total Bilirubin 1.03, AST 27.0, ALT 40.3, Alkaline Phosphatase 57.3, Total Protein 5.63 L, Albumin 3.35 L, Globulin 2.28, Albumin/Globulin Ratio 1.46 07/01/18 05:00: WBC 9.32, RBC 4.13 L, Hgb 13.2 L, Hct 40.5 L, MCV 98.1 H, MCH 32.0 H, MCHC 32.6, RDW Coeff of Leonardo 13.8, Plt Count 169, Immature Gran % (Auto) 0.4, Neut % (Auto) 73.1, Lymph % (Auto) 17.8, [place] % (Auto) 8.3, Eos % (Auto) 0.3, Baso % (Auto) 0.1, Immature Gran # (Auto) 0.0, Neut # (Auto) 6.8, Lymph # ( Auto) 1.7, [place] # (Auto) 0.8, Eos # (Auto) 0.0, Baso # (Auto) 0.0 PLAN: DISCHARGE HOME TODAY DIET: CONSISTENT CARBOHYDRATE ACTIVITY: RESUME TOLERATED KEEP LEGS ELEVATED ABOVE LEVEL OF HIPS MUCH POSSIBLE (WHEN SLEEPING AND WHEN SITTING) CONTINUE TO USE OXYGEN AT 2 LITERS PER NASAL CANNULA; [facility] HAS BEEN CONTACTED TO DISCUSS INOGEN OXYGEN DELIVERY SYSTEM CONTINUE TO USE NEBULIZER TREATMENTS AT LEAST TWICE A DAY, BUT AN ADDITIONAL TREATMENT MAY BE TAKEN FOR SHORTNESS OF AIR WEIGH DAILY; IF WEIGHT GAIN OVER 2 POUNDS DAILY CONTACT YOUR PHYSICIAN [facility] TO RESUME: NURSING VISITS; INCLUDING VITAL SIGNS, WEIGHTS, NUTRITION REVIEW, SKIN ASSESSMENT PHYSICAL AND OCCUPATIONAL THERAPY MEDICATION MANAGEMENT CODE STATUS: FULL CODE AN APPOINTMENT IS ARRANGED WITH DR. FUENTES/GEOFFREY ACUNA APRN ON June AT 0930. MR. LANDRY IS ALERT AND ORIENTED X 3. HE IS AGREEABLE TO DISCHARGE PLANS FOR TODAY. HE IS INDEPENDENT WITH ADL'S AND IS AMBULATORY WITH USE OF OXYGEN AND A ROLLING WALKER. MR. LANRDY LIVES AT HOME WITH HIS FRIEND, ARSALAN AMES. MS. AMES IS AWARE OF DISCHARGE ALSO AND IS AGREEABLE. MR. LANDRY IS CONTINENT OF BLADDER AND BOWEL. LAST BM IS NOTED ON May. MEAL INTAKES ARE GOOD AT 100%. WEIGHT TODAY STANDING ON WHEELCHAIR SCALES AT 237.6 POUNDS. THE LOWER EXTREMITIES ARE EDEMATOUS; PITTING EDEMA 2-3+ WITH LEFT WORSE THAN RIGHT. MR. LANDRY HAS HOME OXYGEN AND A NEBULIZER THRU [facility]. A WALKER IS AVAILABLE IN THE HOME FOR HIS USE ALSO. HOME HEALTH SERVICES WILL BE RESUMED BY [facility]. GEOFFREY ACUNA APRN DISCUSSED THE POSSIBILITY OF [facility] PUTTING DAILY MEDICATIONS IN A BLISTER PACK FOR HIS USE. MR. LANDRY IS AGREEABLE TO THIS PLAN. [facility] ([facility] HAS BEEN CONTACTED AND IS AGREEABLE TO PROVIDE THIS SERVICE. _ MD GEOFFREY MIDDLETON APRN
--- NOTE | 2018-07-02 11:39 | PN ---
DATE OF SERVICE: 06/30/18 SUBJECTIVE: The patient's condition has improved. The patient is breathing a lot better. He is in good spirits. No symptoms of CHf or coronary insuffciency. PHYSICAL EXAMINATION: HEENT: Head normocephalic, atraumatic. Eyes: Extraocular muscles are intact. Pupils are equal, round and reactive to light and accommodation. Ears: No lesions. Nose appeared normal. Throat: No exudate or erythema. NECK: Supple. No JVD, no carotid bruit. No lymphadenopathy or thyromegaly. LUNGS: Decreased breath sounds but clear. Clear to auscultation. Percussion note normal. Chest symmetrical. HEART: S1, S2, no S3. No murmurs. No cyanosis or clubbing. No ascites. Pulses: Dorsalis pedis and posterior tibial pulses +1 to +2 bilaterally. ABDOMEN: Soft. Nontender. Bowel sounds active. No CVA tenderness. No mass felt. EXTREMITIES: No edema. Full range of motion of all extremities, equal. NEUROLOGIC: No focal deficit. Cranial nerves II through XII are grossly intact. No headache, no double vision or headache. SKIN: Not dry. Intact. Turgor - normal. LYMPHATIC: No palpable lymph nodes/no lymphedema. MUSCULOSKELETAL: Normal joints with no swelling. Muscle tone is normal. PLAN: 1. Continue steroids, nebs. 2. The patient needs some help at home. 3. Strongly advised to have help at home. CONDITION: Stable. TIME SPENT: More than 30 minutes. The patient was seen and examined with the nurse practitioner. Plan and coordination of the patient's care discussed in the presence of nurse. KENTRELL
--- NOTE | 2018-07-02 13:41 | PN ---
DATE OF SERVICE: 07/01/18 SUBJECTIVE: The patient was seen and examined with the nurse practitioner. The patient's vitals were stable with blood pressure 106/70, oxygen saturation 100% on 2L. Creatinine 1.2, BUN 30. The patient's hemoglobin was 13. PHYSICAL EXAMINATION: HEENT: Head normocephalic, atraumatic. Eyes: Extraocular muscles are intact. Pupils are equal, round and reactive to light and accommodation. Ears: No lesions. Nose appeared normal. Throat: No exudate or erythema. NECK: Supple. No JVD, no carotid bruit. No lymphadenopathy or thyromegaly. LUNGS: Decreaed breath sounds. Good air entry. Percussion note normal. Chest symmetrical. HEART: S1, S2, no S3. No murmurs. No cyanosis or clubbing. No ascites. Pulses: Dorsalis pedis and posterior tibial pulses +1 to +2 bilaterally. ABDOMEN: Soft. Nontender. Bowel sounds active. No CVA tenderness. No mass felt. EXTREMITIES: No edema. Full range of motion of all extremities, equal. NEUROLOGIC: No focal deficit. Cranial nerves II through XII are grossly intact. No headache, no double vision or headache. SKIN: Not dry. Intact. Turgor - normal. LYMPHATIC: No palpable lymph nodes/no lymphedema. MUSCULOSKELETAL: Normal joints with no swelling. Muscle tone is normal. The patient has gained a lot of strength. Kidney functions are practically normal. The patient is going to be discharged home. Condition is stable. TIME SPENT: More than 30 minutes. Plan and coordination of the patient's care discussed in the presence of nurse. KENTRELL
--- NOTE | 2018-07-02 13:43 | PN ---
BILLING 06/27/18 LEVEL 5 ADMISSION DAY 06/28/18 INTERMEDIATE 06/29/18 INTERMEDIATE 06/30/18 INTERMEDIATE 07/01/18 DISCHARGE MTDD
--- NOTE | 2018-07-07 10:58 | PN ---
DATE OF SERVICE: 07/01/18 SUBJECTIVE: The patient is going to be discharged today. He was seen and examined with the Nurse Practitioner. The patient's condition has improved remarkably. His appetite has improved. Overall he is more upbeat. His creatinine 1.2, BUN 30, improved. His hypertension blood pressure is 110/70, pulse ox 100% on 2 liters. Overall condition is improved. PHYSICAL EXAMINATION: HEENT: Head normocephalic, atraumatic. Eyes: Extraocular muscles are intact. Pupils are equal, round and reactive to light and accommodation. Ears: No lesions. Nose appeared normal. Throat: No exudate or erythema. NECK: Supple. No JVD, no carotid bruit. No lymphadenopathy or thyromegaly. LUNGS: Improved air entry. Clear to auscultation. Percussion note normal. Chest symmetrical. HEART: S1, S2, no S3. No murmurs. No cyanosis or clubbing. No ascites. Pulses: Dorsalis pedis and posterior tibial pulses +1 to +2 bilaterally. ABDOMEN: Soft. Nontender. Bowel sounds active. No CVA tenderness. No mass felt. EXTREMITIES: Pedal edema nonpitting is still here. Full range of motion of all extremities, equal. NEUROLOGIC: No focal deficit. Cranial nerves II through XII are grossly intact. No headache, no double vision or headache. SKIN: Not dry. Intact. Turgor - normal. LYMPHATIC: No palpable lymph nodes/no lymphedema. MUSCULOSKELETAL: Normal joints with no swelling. Muscle tone is normal. ASSESSMENT: 1. Renal failure has resolved PLAN: 1. The patient needs care especially in the [facility] which he has declined. TIME SPENT: More than 30 minutes. Plan and coordination of the patient's care discussed in the presence of nurse. KENTRELL
--- NOTE | 2018-07-07 10:59 | PN ---
06/27/18: Level 5 06/28/18: Intermediate 06/29/18: Intermediate 06/30/18: Intermediate 07/01/18: D as in discharge MTDD
--- NOTE | 2018-07-08 08:55 | DS ---
DATE OF SERVICE: 07/01/18 FINAL DIAGNOSIS: 1. RENAL AZOTEMIA 2. DEHYDRATION 3. PNEUMONIA/BRONCHITIS 4. HYPOTENSION 5. CHRONIC LEG EDEMA 6. DM, TYPE 2 7. COPD (SEVERE PER PFT 05/2018) 8. HYPOTHYROID 9. HYPERTENSION 10. CHF 11. DYSLIPIDEMIA 12. BPH 13. COR PULMONALE 14. B12 DEFICIENCY 15. GOUT V/S: Temperature 97.9, pulse 66, respiratory rate 16, BP 106/70, pulse ox 100 DISCHARGE INSTRUCTIONS: 1. KEEP LEGS ELEVATED ABOVE LEVEL OF HIPS MUCH POSSIBLE (WHEN SLEEPING AND WHEN SITTING) 2. CONTINUE TO USE OXYGEN AT 2 LITERS PER NASAL CANNULA; [facility] HAS BEEN CONTACTED TO DISCUSS INOGEN OXYGEN DELIVERY SYSTEM 3. CONTINUE TO USE NEBULIZER TREATMENTS AT LEAST TWICE A DAY, BUT AN ADDITIONAL TREATMENT MAY BE TAKEN FOR SHORTNESS OF AIR 4. WEIGH DAILY; IF WEIGHT GAIN OVER 2 POUNDS DAILY CONTACT YOUR PHYSICIAN 5. [facility] TO RESUME: NURSING VISITS; INCLUDING VITAL SIGNS, WEIGHTS, NUTRITION REVIEW, SKIN ASSESSMENT, PHYSICAL AND OCCUPATIONAL THERAPY. MEDICATION MANAGEMENT CODE STATUS: FULL CODE AN APPOINTMENT IS ARRANGED WITH DR. FUENTES/GEOFFREY ACUNA APRN ON June AT 0930. MEDICATIONS AT DISCHARGE: Albuterol/Ipratropium (Duoneb) 1 vial NEB RT BID [facility] Last Admin: 07/01/18 04:50 Dose: 1 vial Allopurinol (Zyloprim) 200 mg PO DAILY [facility] Last Admin: 07/01/18 08:20 Dose: 200 mg Carvedilol (Coreg) 3.125 mg PO BIDWM [facility] Last Admin: 07/01/18 08:19 Dose: 3.125 mg Furosemide (Lasix Tab) 40 mg PO QDAC [facility] Last Admin: 07/01/18 05:30 Dose: 40 mg Levofloxacin 250 MG PO DAILY [facility] FOR 5 DAYS Last Admin: 07/01/18 08:19 Dose: 100 mls/hr Levothyroxine Sodium (Synthroid) 100 mcg PO QDAC [facility] Last Admin: 07/01/18 05:30 Dose: 100 mcg Lorazepam (Ativan) 0.5 mg PO BEDTIME [facility] Last Admin: 06/30/18 20:56 Dose: 0.5 mg Pravastatin Sodium (Pravachol) 40 mg PO BEDTIME [facility] Last Admin: 06/30/18 20:56 Dose: 40 mg Prednisone (Prednisone) 10 mg PO DAILYWM [facility] FOR 5 DAYS Last Admin: 07/01/18 08:20 Dose: 10 mg Spironolactone (Aldactone) 25 mg PO DAILY [facility] Last Admin: 07/01/18 08:21 Dose: 25 mg Tamsulosin HCl (Flomax) 0.4 mg PO BEDTIME [facility] Last Admin: 06/30/18 20:56 Dose: 0.4 mg Symbicort 160-4.5 MCG IH 1 PUFF [facility] DAILY Last Admin: NEW PRESCRIPTIONS: LEVAQUIN 250 MG PO DAILY FOR 5 DAYS PREDNISONE 10 MG PO DAILY FOR 5 DAYS REFILL RX GIVEN FOR COREG 3.125 MG BID LASIX 40 MG DAILY LEVOTHYROXINE 100 MCG DAILY PRAVASTATIN 40 MG AT BEDTIME TAMSULOSIN 0.4 MG AT BEDTIME DISCONTINUED MEDICATIONS: ZAROXOLYN DIET INSTRUCTIONS: Consistent carbohydrate ACTIVITY: RESUME TOLERATED SMOKING: NOT APPLICABLE DISEASE SPECIFIC EDUCATION: ELEVATING LEGS MEDICATION CHANGE USE OF OXYGEN CONTINUOUSLY USE OF NEBULIZER TREATMENT APPOINTMENT HOSPITAL COURSE: This is an 83-year-old white male who is admitted through the emergency room with shortness of breath and dehydration. CT of the chest showed some possible lingular pneumonia. He had recently been discharged from [facility] after having acute COPD exacerbation, shortness of breath is now oxygen dependent. He was admitted by Dr. Weber, initially placed on multiple antibiotics. Kidney function was elevated showing dehydration. I discontinued the Vancomycin and Cefepime, put him on Levaquin 500 mg IV daily. His blood pressure was low initially. We did hold his blood pressure medications, gave him IV fluids slowly 75 cc/hr for 24 hours. Kidney function is improved. Blood pressure has improved. He has restarted his blood pressure medication. I do believe that his shortness of breath contributed more to anxiety. His pulmonary function was not worse than it was at discharge however I feel like he got home, became anxious, wasn't wearing his oxygen all the time, may have gotten his medications confused so he has done well. He feels ready to go home. He is going to continue to have home health or physical and occupational therapy and nursing care. He is going to purchase an oxygen generator. He has been instructed to wear his oxygen at all times. He has a nebulizer machine at home. He is instructed to keep his legs elevated. Will follow the patient in the office next week. TIME SPENT: More than 60 minutes. ANDRESD
== END 2018-07-01 13:40 | disposition home or self-care (01) | DRG 195 ==
LOC: ED 14:10 → MEDSURG B 15:57
PROVIDERS: ADMIT Internal Medicine; ATTEND Internal Medicine
DX: J18.9 Pneumonia, unspecified organism (principal); J06.9 Acute upper respiratory infection, unspecified; J40 Bronchitis, not specified as acute or chronic; J44.9 Chronic obstructive pulmonary disease, unspecified; E86.0 Dehydration; E11.9 Type 2 diabetes mellitus without complications; E03.9 Hypothyroidism, unspecified; E78.5 Hyperlipidemia, unspecified; E53.8 Deficiency of other specified B group vitamins; N18.9 Chronic kidney disease, unspecified; N40.0 Benign prostatic hyperplasia without lower urinary tract symptoms; I95.9 Hypotension, unspecified; I10 Essential (primary) hypertension; I50.9 Heart failure, unspecified; M10.9 Gout, unspecified; F41.9 Anxiety disorder, unspecified; R05 Cough; R09.81 Nasal congestion; R53.1 Weakness; R53.81 Other malaise; R79.89 Other specified abnormal findings of blood chemistry; R60.0 Localized edema
CPT/HCPCS: 36415; 80053; 81001; 82550; 82803; 82962; 83605; 84145; 84484; 85025; 87040; 87081; 87502; 93005; 93010; 94640; 96365; 96375; 97802; 99284

== ENCOUNTER 2019-11-08 14:06 | Inpatient (IN) ==
[2019-11-08 14:38] VITALS: BMI 31.2
[2019-11-08] MEDS ORDERED: NITROSTAT SL PRN (14:49)
[2019-11-08] MEDS ORDERED: TYLENOL PO PRN (14:49)
[2019-11-08] MEDS ORDERED: ATROPINE SULFATE PFS IVP PRN (14:49)
[2019-11-08] MEDS ORDERED: VISTARIL INJ IM PRN (14:49)
[2019-11-08 15:32] LABS: BASOPHILS % (AUTO) 0.4 % (0.0-3.0); EOSINOPHILS # (AUTO) 0.2 K/ul (0.0-0.7); EOSINOPHILS % (AUTO) 2.2 % (0.0-7.0); HEMATOCRIT 45.2 % (42.0-52.0); HEMOGLOBIN 14.5 g/dl (14.0-18.0); IMMATURE GRANULOCYTE % (AUTO) 0.2 % (0.0-5.0); MEAN CORPUSCULAR HGB CONC 32.1 (31.8-35.4); MEAN CORPUSCULAR VOLUME 99.8 fl (80.0-94.0); MONOCYTES # (AUTO) 0.6 K/uL (0.4-2.0); NEUTROPHILS # (AUTO) 6.1 K/ul (2.0-6.9); NEUTROPHILS % (AUTO) 68.2 % (42.2-75.2); PLATELET COUNT 243 10^3/uL (140-440); RDW COEFFICIENT OF VARIATION 14.2 % (11.6-14.8); RED BLOOD COUNT 4.53 10^6/ul (4.70-6.10); WHITE BLOOD COUNT 8.94 K/ul (4.2-10.2)
[2019-11-08 16:27] LABS: ALANINE AMINOTRANSFERASE 20.4 U/L (0-50); ALBUMIN 3.79 g/dL (3.5-5.0); ALKALINE PHOSPHATASE 67.6 U/L (56-119); ASPARTATE AMINO TRANSFERASE 39.9 U/L (17-59); BILIRUBIN,TOTAL 0.8 mg/dL (0.2-1.3); BLOOD UREA NITROGEN 15.9 mg/dL (9-20); CALCIUM 8.93 mg/dL (8.4-10.2); CARBON DIOXIDE 36.4 mmol/L (22-30.0); CHLORIDE 98.1 mmol/L (98-107); CREATININE 1.1 mg/dL (0.60-1.10); GLUCOSE 125.7 mg/dL (74-106); SODIUM 138.6 mmol/L (134.5-145); TOTAL PROTEIN 6.9 g/dL (6.3-8.2)
[2019-11-08] MEDS: ZITHROMAX PO SCH (17:03)
[2019-11-08] MEDS: ROCEPHIN 1 GM/50 ML D5W 1 GM/50 ML BAG IV SCH (17:04)
[2019-11-08] MEDS: COREG PO SCH (17:04)
[2019-11-08] MEDS: LASIX IVP SCH (17:04)
[2019-11-08] MEDS: GLUCOPHAGE PO SCH (17:04)
[2019-11-08] MEDS: SOLU-CORTEF 250 MG IVP SCH ×2 (17:04→20:01)
--- NOTE | 2019-11-08 17:06 | DI ---
EXAM: Chest one view, frontal view only. HISTORY: Shortness of breath. COMPARISON: 10/26/2018. FINDINGS: Heart size is normal. No vascular congestion identified. Lungs are clear although evalua tion of the bases is limited by portable technique. There is no pleural effusion or pneumothorax. N o acute osseous abnormality is seen. Since the prior study, there has been no significant interval margo weiss. IMPRESSION: No acute process.
[2019-11-08 18:56] LABS: BILIRUBIN,URINE Negative (NEGATIVE); CLARITY,URINE Clear (CLEAR); COLOR,URINE Yellow (YELLOW); GLUCOSE, URINE (UA) Negative (NEGATIVE); KETONES,URINE Negative (NEGATIVE); LEUKOCYTE ESTERASE ,URINE Negative (NEGATIVE); NITRITE,URINE Negative (NEGATIVE); PH,URINE 7.5 (5-9); URINE, BLOOD Negative (NEGATIVE); UROBILINOGEN,URINE 0.2 (0.2)
[2019-11-08] MEDS: VENTOLIN HFA (PER PUFF-WITH SPACER) IH SCH (19:55)
[2019-11-08] MEDS: SYMBICORT 160-4.5 MCG INHALER IH SCH (20:01)
[2019-11-08] MEDS: FLOMAX PO SCH (20:01)
[2019-11-08] MEDS: PRAVACHOL PO SCH (20:01)
[2019-11-08] MEDS: ATIVAN PO SCH (20:01)
[2019-11-09] MEDS: VENTOLIN HFA (PER PUFF-WITH SPACER) IH SCH ×3 (04:50→20:34)
[2019-11-09 05:36] LABS: BASOPHILS % (AUTO) 0.3 % (0.0-3.0); EOSINOPHILS % (AUTO) 0.1 % (0.0-7.0); HEMATOCRIT 44.2 % (42.0-52.0); IMMATURE GRANULOCYTE % (AUTO) 0.1 % (0.0-5.0); LYMPHOCYTES # (AUTO) 2.1 K/uL (0.60-3.4); LYMPHOCYTES % (AUTO) 22.9 (10.0-50.0); MEAN CORPUSCULAR HGB CONC 31.7 (31.8-35.4); MEAN CORPUSCULAR VOLUME 99.3 fl (80.0-94.0); MONOCYTES # (AUTO) 0.4 K/uL (0.4-2.0); MONOCYTES % (AUTO) 4.9 (0-10); NEUTROPHILS # (AUTO) 6.4 K/ul (2.0-6.9); NEUTROPHILS % (AUTO) 71.7 % (42.2-75.2); PLATELET COUNT 227 10^3/uL (140-440); RDW COEFFICIENT OF VARIATION 13.9 % (11.6-14.8); RED BLOOD COUNT 4.45 10^6/ul (4.70-6.10); WHITE BLOOD COUNT 8.95 K/ul (4.2-10.2)
[2019-11-09 05:42] LABS: ALANINE AMINOTRANSFERASE 19.1 U/L (0-50); ALBUMIN 3.72 g/dL (3.5-5.0); ALKALINE PHOSPHATASE 54.1 U/L (56-119); ASPARTATE AMINO TRANSFERASE 24.6 U/L (17-59); BILIRUBIN,TOTAL 1.02 mg/dL (0.2-1.3); BLOOD UREA NITROGEN 18.4 mg/dL (9-20); CALCIUM 8.89 mg/dL (8.4-10.2); CARBON DIOXIDE 37.7 mmol/L (22-30.0); CHLORIDE 96.2 mmol/L (98-107); CREATININE 1.01 mg/dL (0.60-1.10); GLUCOSE 142.1 mg/dL (74-106); SODIUM 137.3 mmol/L (134.5-145); TOTAL PROTEIN 6.73 g/dL (6.3-8.2)
[2019-11-09] MEDS: SYNTHROID PO SCH (05:46)
[2019-11-09] MEDS: LASIX IVP SCH (05:47)
[2019-11-09] MEDS ORDERED: LASIX TAB PO SCH (06:30)
--- NOTE | 2019-11-09 08:26 | PCM.PROG ---
Attending Provider: ATTENDING PROVIDER: Dr. MACKENZIE FUENTES This patient is seen with Lizette Latham, Nurse Practitioner. DATE OF SERVICE: 11/09/19 SUBJECTIVE: This 84 year old /WHITE M was hospitalized 11/08/19. The patient is resting comfortably. He has had 400 out already this morning. Kidney function is good. REVIEW OF SYSTEMS: CONSTITUTIONAL: No night sweats. No fatigue, malaise, lethargy. No fever or chills. HEENT: Eyes: No visual changes. No eye pain. No eye discharge. ENT: No runny nose. No epistaxis. No sinus pain. No odynophagia. No congestion. RESPIRATORY: Cough, no congestion. No hemoptysis. Shortness of breath. CARDIOVASCULAR: No angina symptoms. No CHF symptoms. No atypical chest pain for CAD. No palpitations. No orthopnea.. GASTROINTESTINAL: No abdominal pain. No nausea or vomiting. No diarrhea or constipation. No hematemesis. No hematochezia. GENITOURINARY: No urgency. No frequency. No dysuria. No hematuria. No obstructive symptoms. No discharge. No pain. No significant abnormal bleeding. MUSCULOSKELETAL: No musculoskeletal pain; no joint swelling. NEUROLOGICAL: Awake, alert, oriented to time, place and person. No headache. No neck pain. No syncope. No seizures. No dizziness. PSYCHIATRIC: Not anxious. No depression. No suicidal thoughts. No homicidal thoughts. SKIN: No rash. No lesions. No wounds. Leg edema. ENDOCRINE: No unexplained weight loss. No weight gain. HEMATOLOGIC/LYMPHATIC: No anemia. No purpura. No petechiae. No prolonged or excessive bleeding. No palpable lymph nodes. PHYSICAL EXAMINATION: GENERAL: The patient is awake, alert and oriented, sitting in bed in no distress. VITAL SIGNS: Temperature 97.4 F, Pulse 84, Respiratory Rate 24, BP 122/59, Pulse Ox 95% HEENT: Head normocephalic, atraumatic. Eyes: Extraocular muscles are intact. Pupils are equal, round and reactive to light and accommodation. Ears: No lesions. Nose appeared normal. Throat: No exudate or erythema. NECK: Supple. No JVD, no carotid bruit. No lymphadenopathy or thyromegaly. LUNGS: Diminished breath sounds. Crepitations in left base. Rhonchi on right. Clear to auscultation. Percussion note normal. Chest symmetrical. HEART: S1, S2, no S3. No murmurs. No cyanosis or clubbing. No ascites. Pulses: Dorsalis pedis and posterior tibial pulses +1 to +2 both sides. ABDOMEN: Soft. Non-tender. Bowel sounds active. No CVA tenderness. No mass felt. EXTREMITIES: 3+ bilateral lower extremity edema. Full range of motion of all extremities, equal. NEUROLOGIC: No focal deficit. Cranial nerves II through XII are grossly intact. No headache, no double vision or headache. SKIN: Not dry. Intact. Turgor-normal. LYMPHATIC: No palpable lymph nodes/no lymphedema. MUSCULOSKELETAL: Normal joints with no swelling. Muscle tone is normal. LAB REVIEW: 11/09/19 05:15 11/09/19 05:15 11/09/19 05:15: Sodium 137.3, Potassium 3.93, Chloride 96.2 L, Carbon Dioxide 37.7 H, Anion Gap 7.33, BUN 18.4, Creatinine 1.01, Estimated GFR (MDRD) 71.00, B UN/Creatinine Ratio 18.21, Glucose 142.1 H, Calcium 8.89, Total Bilirubin 1.02, AST 24.6, ALT 19.1, Alkaline Phosphatase 54.1 L, Total Protein 6.73, Albumin 3.72, Globulin 3.01, Albumin/Globulin Ratio 1.23 11/09/19 05:15: WBC 8.95, RBC 4.45 L, Hgb 14.0, Hct 44.2, MCV 99.3 H, MCH 31.5 H , MCHC 31.7 L, RDW Coeff of Leonardo 13.9, Plt Count 227, Immature Gran % (Auto) 0.1, Neut % (Auto) 71.7, Lymph % (Auto) 22.9, [place] % (Auto) 4.9, Eos % (Auto) 0.1, Baso % (Auto) 0.3, Neut # (Auto) 6.4, Lymph # (Auto) 2.1, [place] # (Auto) 0.4, Eos # (Auto) 0.0, Baso # (Auto) 0.0, Immature Gran # (Auto) 0.0 11/08/19 18:41: Urine Color Yellow, Urine Clarity Clear, Urine pH 7.5, Ur Specific [place] 1.020, Urine Protein Negative, Urine Glucose (UA) Negative, Urine Ketones Negative, Urine Blood Negative, Urine Nitrite Negative, Urine Bilirubin Negative, Urine Urobilinogen 0.2, Ur Leukocyte Esterase Negative 11/08/19 15:15: Sodium 138.6, Potassium 3.72, Chloride 98.1, Carbon Dioxide 36.4 H, Anion Gap 7.82, BUN 15.9, Creatinine 1.10, Estimated GFR (MDRD) 64.00, BUN/Creatinine Ratio 14.45, Glucose 125.7 H, Calcium 8.93, Total Bilirubin 0.80, AST 39.9, ALT 20.4, Alkaline Phosphatase 67.6, Total Protein 6.90, Albumin 3.79, Globulin 3.11, Albumin/Globulin Ratio 1.21 11/08/19 15:15: WBC 8.94, RBC 4.53 L, Hgb 14.5, Hct 45.2, MCV 99.8 H, MCH 32.0 H , MCHC 32.1, RDW Coeff of Leonardo 14.2, Plt Count 243, Immature Gran % (Auto) 0.2, Neut % (Auto) 68.2, Lymph % (Auto) 22.0, [place] % (Auto) 7.0, Eos % (Auto) 2.2, Baso % (Auto) 0.4, Neut # (Auto) 6.1, Lymph # (Auto) 2.0, [place] # (Auto) 0.6, Eos # (Auto) 0.2, Baso # (Auto) 0.0, Immature Gran # (Auto) 0.0 ASSESSMENT: Please see below. 1. Shortness of breath 2. Leg edema 3. Acute COPD exacerbation 4. History of CHF PLAN: 1. Increase Aldactone 25mg BID 2. T4 TSH 3. 2D echo 4. Elevate legs. Plan and coordination of the patient's care discussed in the presence of Hr Administrator and nurse. SCRIBED BY: Mauro REDDY scribed while in presence of service performed by Dr. Fuentes/Lizette Latham APRN on 11/09/19 (0800)
[2019-11-09] MEDS: ZITHROMAX PO SCH (08:31)
[2019-11-09] MEDS: GLUCOPHAGE PO SCH ×2 (08:31→17:28)
[2019-11-09] MEDS: ZYLOPRIM PO SCH (08:32)
[2019-11-09] MEDS: ALDACTONE PO SCH ×2 (08:32→20:38)
[2019-11-09] MEDS: COREG PO SCH ×2 (08:32→17:28)
[2019-11-09] MEDS: ASPIRIN EC PO SCH (08:32)
[2019-11-09] MEDS: ROCEPHIN 1 GM/50 ML D5W 1 GM/50 ML BAG IV SCH (08:33)
[2019-11-09] MEDS: SOLU-CORTEF 250 MG IVP SCH ×2 (08:33→20:31)
[2019-11-09] MEDS: SYMBICORT 160-4.5 MCG INHALER IH SCH ×2 (08:34→20:39)
[2019-11-09] MEDS ORDERED: ALDACTONE PO SCH (09:00)
[2019-11-09] MEDS ORDERED: SPIRONOLACTONE 25 MG PO SCH (09:00)
--- NOTE | 2019-11-09 11:18 | HP ---
DATE OF SERVICE: 11/08/19 REASON FOR HOSPITALIZATION/HISTORY OF PRESENT ILLNESS: 84-year-old male has had increasing shortness of air, cough, decreased appetite times 2 to 3 weeks. He is doing nebulizers 3 to 4 times a day. He feels full, bloated all the time. He has lost 9 lbs. He has been on 02 at h.s. No signs or symptoms of CHF or CAD. PAST MEDICAL HISTORY: DIABETES MELLITUS TYPE 2 (A1C 6.7 08/19) CHRONIC LEG EDEMA CHRONIC LUNG DISEASE/ BRONCHITIS HISTORY OF ATRIAL FIBRILLATION INSOMNIA RECURRENT GOUT HYPERTENSION CONGESTIVE HEART FAILURE COPD BPH OBESITY HYPOTHYROIDISM B12 DEFICIENCY COR PULMONALE PAST SURGICAL HISTORY: Tonsillectomy Skin cancer REVIEW OF SYSTEMS: CONSTITUTIONAL: Fatigue. No fever. HEENT: No sinus drainage, no sore throat. RESPIRATORY: Cough with white to yellow sputum. CARDIOVASCULAR: Shortness of breath as usual. No atypical chest pain for coronary artery disease. No angina, CHF symptoms, palpitations. GASTROINTESTINAL: No melena or abdominal pain. No GERD. GENITOURINARY: No hematuria, no prostatism, no polyuria. MEDIA EXECUTIVE: No blackout, no dizziness, no headache, no double vision. MUSCULOSKELETAL: Osteoarthritis pain, no joint swelling. ENDOCRINE: Weight loss, no weight gain. SKIN: Not dry, no rash. PSYCHIATRIC: Not anxious, no depression, no suicidal thoughts, no homicidal thoughts. SOCIAL HISTORY: The patient has quit smoking. Single. No alcohol use. FAMILY HISTORY: Father ; mother . No brothers; one sister . MEDICATIONS: Pravastatin 40 mg daily Ativan 0.5 mg one at h.s. Spironolactone 25 mg daily Allopurinol 100 mg daily Metformin 500 mg b.i.d. Levothyroxine 100 mcg Lasix 40 mg daily Tamsulosin 0.4 mg daily Nebulizer treatment q.i.d. Budesonide 1 mg neb q.h.s. Albuterol neb 0.83 q.4hr Duoneb Coreg 3.125 mg b.i.d. ALLERGIES: NKDA PHYSICAL EXAMINATION: V/S: Pulse 102, BP 104/74, temperature 97.2, 02 sat 93%. Height 5'9", Weight 234.4. BMI 34.6. GENERAL APPEARANCE: Oriented times three. HEENT: Normal. NECK: No JVP, no bruits. RESPIRATORY: Decreased breath sounds. Creps at the bases. CARDIOVASCULAR: S1, S2, no S3, no murmur. No cyanosis, clubbing. No ascites. GI/ABDOMEN: No tenderness. Bowel sounds are active. EXTREMITIES: Chronic 2+ pitting edema, pulses +1, equal. No foot ulcers. MEDIA EXECUTIVE: Deep tendon reflexes, sensory, motor and gait all normal. RECTAL/PROSTATE: Prostate 9 (0.6) Colonoscopy - refused. Colocare - patient refused. ASSESSMENT: 1. SHORTNESS OF BREATH 2. LEG EDEMA 3. ACUTE COPD EXACERBATION 4. CONGESTIVE HEART FAILURE 5. DIABETES MELLITUS TYPE 2 (A1C 6.7 08/19) 6. CHRONIC LEG EDEMA 7. CHRONIC BRONCHITIS 8. HISTORY OF ATRIAL FIBRILLATION 9. INSOMNIA 10. RECURRENT GOUT 11. HYPERTENSION 12. CONGESTIVE HEART FAILURE 13. COPD 14. BPH 15. OBESITY 16. HYPOTHYROIDISM 17. B12 DEFICIENCY 18. COR PULMONALE PLAN: 1. Admit - PUI. 2. Continue all medications. 3. Routine telemetry orders - no cardiac markers. 4. Isolation precautions. 5. Covid-19 test - [facility]. 6. CBC, CMP daily. 7. Lasix 40 mg IV now and daily. 8. Hold p.o. Lasix. 9. Rocephin 1 gm IV daily. 10. Zithromax 500 mg p.o. daily times 3 days. 11. Chest x-ray. 12. UA. 13. 02 @ 1-2L per NC p.r.n. 14. Albuterol inhaler two puffs scheduled; Symbicort two puffs b.i.d.; Solu- Cortef 125 N q.12h. 15. Measure input and output. 16. Elevate legs TIME SPENT: More than 70 minutes. MTDD
--- NOTE | 2019-11-09 11:35 | PN ---
DATE OF SERVICE: 11/08/2019 ADMIT NOTE SUBJECTIVE: The patient was seen and examined in the office for shortness of breath and leg swelling and also cough and congestion with bronchitis type of symptoms with yellowish sputum and no exposure to any COVID family members. The patient is going to be hospitalized. REVIEW OF SYSTEMS: CONSTITUTIONAL: No night sweats. No fatigue, malaise, lethargy. No fever or chills. HEENT: Eyes: No visual changes. No eye pain. No eye discharge. ENT: No runny nose. No epistaxis. No sinus pain. No sore throat. No odynophagia. No congestion. RESPIRATORY: No cough, no congestion. No hemoptysis. No shortness of breath. CARDIOVASCULAR: No angina symptoms. No CHF symptoms. No atypical chest pain for CAD. No palpitations. No PND. No orthopnea. GASTROINTESTINAL: No abdominal pain. No nausea or vomiting. No diarrhea or constipation. No hematemesis. No hematochezia. GENITOURINARY: No urgency. No frequency. No dysuria. No hematuria. No obstructive symptoms. No discharge. No pain. No significant abnormal bleeding. MUSCULOSKELETAL: No musculoskeletal pain; no joint swelling. NEUROLOGICAL: No headache. No neck pain. No syncope. No seizures. No dizziness. PSYCHIATRIC: Not anxious. No depression. No suicidal thoughts. No homicidal thoughts. SKIN: No rash. No lesions. No wounds. ENDOCRINE: No unexplained weight loss. No weight gain. HEMATOLOGIC/LYMPHATIC: No anemia. No purpura. No petechiae. No prolonged or excessive bleeding. No palpable lymph nodes. PHYSICAL EXAMINATION: GENERAL: The patient is oriented to time, place and person. HEENT: Head normocephalic, atraumatic. Eyes: Extraocular muscles are intact. Pupils are equal, round and reactive to light and accommodation. Ears: No lesions. Nose appeared normal. Throat: No exudate or erythema. NECK: Supple. No JVD, no carotid bruit. No lymphadenopathy or thyromegaly. LUNGS:Decreased breath sounds with mild wheeze. Clear to auscultation. Percussion note normal. Chest symmetrical. HEART: S1, S2, no S3. No murmurs. No cyanosis or clubbing. No ascites. Pulses: Dorsalis pedis and posterior tibial pulses +1 to +2 bilaterally. ABDOMEN: Soft. Nontender. Bowel sounds active. No CVA tenderness. No mass felt. EXTREMITIES: 2+ pitting edema. Full range of motion of all extremities, equal. NEUROLOGIC: No focal deficit. Cranial nerves II through XII are grossly intact. No headache, no double vision or headache. SKIN: Not dry. Intact. Turgor - normal. LYMPHATIC: No palpable lymph nodes/no lymphedema. MUSCULOSKELETAL: Normal joints with no swelling. Muscle tone is normal. ASSESSMENT: 1. Acute bronchitis with chronic lung disease 2. Chronic lung disease with likely pulmonary hypertension PLAN: 1. Admit the patient 2. Elevate the legs 3. IV Lasix 4. Steroids 5. Antibiotics 6. COVID swab TIME SPENT: More than 30 minutes. Plan and coordination of the patient's care discussed in the presence of nurse. KENTRELL
[2019-11-09] MEDS: FLOMAX PO SCH (20:38)
[2019-11-09] MEDS: PRAVACHOL PO SCH (20:38)
[2019-11-09] MEDS: ATIVAN PO SCH (20:39)
[2019-11-10] MEDS: VENTOLIN HFA (PER PUFF-WITH SPACER) IH SCH (04:38)
[2019-11-10 05:38] LABS: BASOPHILS % (AUTO) 0.4 % (0.0-3.0); EOSINOPHILS % (AUTO) 0.2 % (0.0-7.0); HEMATOCRIT 44.9 % (42.0-52.0); HEMOGLOBIN 14.3 g/dl (14.0-18.0); IMMATURE GRANULOCYTE % (AUTO) 0.3 % (0.0-5.0); LYMPHOCYTES # (AUTO) 2.2 K/uL (0.60-3.4); LYMPHOCYTES % (AUTO) 20.4 (10.0-50.0); MEAN CORPUSCULAR HGB CONC 31.8 (31.8-35.4); MEAN CORPUSCULAR VOLUME 98.2 fl (80.0-94.0); MONOCYTES # (AUTO) 0.6 K/uL (0.4-2.0); MONOCYTES % (AUTO) 5.1 (0-10); NEUTROPHILS # (AUTO) 7.9 K/ul (2.0-6.9); NEUTROPHILS % (AUTO) 73.6 % (42.2-75.2); PLATELET COUNT 267 10^3/uL (140-440); RDW COEFFICIENT OF VARIATION 13.9 % (11.6-14.8); RED BLOOD COUNT 4.57 10^6/ul (4.70-6.10); WHITE BLOOD COUNT 10.75 K/ul (4.2-10.2)
[2019-11-10 05:49] LABS: ALBUMIN 4.06 g/dL (3.5-5.0); ALKALINE PHOSPHATASE 55.8 U/L (56-119); ASPARTATE AMINO TRANSFERASE 30.4 U/L (17-59); BILIRUBIN,TOTAL 0.79 mg/dL (0.2-1.3); BLOOD UREA NITROGEN 25.2 mg/dL (9-20); CALCIUM 9.29 mg/dL (8.4-10.2); CARBON DIOXIDE 33.7 mmol/L (22-30.0); CHLORIDE 96.4 mmol/L (98-107); CREATININE 1.05 mg/dL (0.60-1.10); GLUCOSE 152.5 mg/dL (74-106); TOTAL PROTEIN 7.35 g/dL (6.3-8.2)
[2019-11-10] MEDS: SYNTHROID PO SCH (06:06)
[2019-11-10] MEDS: LASIX IVP SCH (06:09)
--- NOTE | 2019-11-10 07:06 | PN ---
DATE OF SERVICE: 11/09/19 SUBJECTIVE: The patient was seen and examined with the nurse practitioner. Leg edema is much better. He is feeling better, less leg swelling. Covid is pending. TIME SPENT: More than 30 minutes. Plan and coordination of the patient's care discussed in the presence of nurse. KENTRELL
--- NOTE | 2019-11-10 08:45 | PCM.PROG ---
Attending Provider: ATTENDING PROVIDER: Dr. MACKENZIE FUENTES This patient is seen with Lizette Latham, Nurse Practitioner. DATE OF SERVICE: 11/10/19 SUBJECTIVE: This 84 year old /WHITE M was hospitalized 11/08/19. The patient is resting comfortably. Leg edema has improved. The patient is less short of breath. He has been eating well. Feels as if he is ready to get up in the chair today. COVID is negative. REVIEW OF SYSTEMS: CONSTITUTIONAL: No night sweats. No fatigue, malaise, lethargy. No fever or chills. HEENT: Eyes: No visual changes. No eye pain. No eye discharge. ENT: No runny nose. No epistaxis. No sinus pain. No odynophagia. No congestion. RESPIRATORY: Cough, no congestion. No hemoptysis. Shortness of breath. CARDIOVASCULAR: No angina symptoms. No CHF symptoms. No atypical chest pain for CAD. No palpitations. No orthopnea.. GASTROINTESTINAL: No abdominal pain. No nausea or vomiting. No diarrhea or constipation. No hematemesis. No hematochezia. GENITOURINARY: No urgency. No frequency. No dysuria. No hematuria. No obstructive symptoms. No discharge. No pain. No significant abnormal bleeding. MUSCULOSKELETAL: No musculoskeletal pain; no joint swelling. NEUROLOGICAL: Awake, alert, oriented to time, place and person. No headache. No neck pain. No syncope. No seizures. No dizziness. PSYCHIATRIC: Not anxious. No depression. No suicidal thoughts. No homicidal thoughts. SKIN: No rash. No lesions. No wounds. Leg edema. ENDOCRINE: No unexplained weight loss. No weight gain. HEMATOLOGIC/LYMPHATIC: No anemia. No purpura. No petechiae. No prolonged or excessive bleeding. No palpable lymph nodes. PHYSICAL EXAMINATION: GENERAL: The patient is awake, alert and oriented, lying in bed in no distress. VITAL SIGNS: Temperature 97.9 F, Pulse 75, Respiratory Rate 18, BP 123/77, Pulse Ox 95% HEENT: Head normocephalic, atraumatic. Eyes: Extraocular muscles are intact. Pupils are equal, round and reactive to light and accommodation. Ears: No lesions. Nose appeared normal. Throat: No exudate or erythema. NECK: Supple. No JVD, no carotid bruit. No lymphadenopathy or thyromegaly. LUNGS: Diminished breath sounds bilateral and inspiratory and expiratory wheezing. Clear to auscultation. Percussion note normal. Chest symmetrical. HEART: S1, S2, no S3. No murmurs. No cyanosis or clubbing. No ascites. Pulses: Dorsalis pedis and posterior tibial pulses +1 to +2 both sides. ABDOMEN: Soft. Non-tender. Bowel sounds active. No CVA tenderness. No mass felt. EXTREMITIES: 2+ bilateral lower extremity edema. Full range of motion of all extremities, equal. NEUROLOGIC: No focal deficit. Cranial nerves II through XII are grossly intact. No headache, no double vision or headache. SKIN: Not dry. Intact. Turgor-normal. LYMPHATIC: No palpable lymph nodes/no lymphedema. MUSCULOSKELETAL: Normal joints with no swelling. Muscle tone is normal. LAB REVIEW: 11/10/19 05:30 11/10/19 05:30 11/10/19 05:30: Sodium 137.0, Potassium 4.32, Chloride 96.4 L, Carbon Dioxide 33.7 H, Anion Gap 11.22, BUN 25.2 H, Creatinine 1.05, Estimated GFR (MDRD) 67.00, BUN/Creatinine Ratio 24.00, Glucose 152.5 H, Calcium 9.29, Total Bilirubin 0.79, AST 30.4, ALT 21.0, Alkaline Phosphatase 55.8 L, Total Protein 7.35, Albumin 4.06, Globulin 3.29, Albumin/Globulin Ratio 1.23 11/10/19 05:30: WBC 10.75 H, RBC 4.57 L, Hgb 14.3, Hct 44.9, MCV 98.2 H, MCH 31.3 H, MCHC 31.8, RDW Coeff of Leonardo 13.9, Plt Count 267, Immature Gran % (Auto) 0.3, Neut % (Auto) 73.6, Lymph % (Auto) 20.4, [place] % (Auto) 5.1, Eos % (Auto) 0.2, Baso % (Auto) 0.4, Neut # (Auto) 7.9 H, Lymph # (Auto) 2.2, [place] # (Auto) 0.6, Eos # (Auto) 0.0, Baso # (Auto) 0.0, Immature Gran # (Auto) 0.0 11/09/19 05:15: Thyroxine (T4) 8.1 11/09/19 05:15: TSH 1.680 11/08/19 15:32: SARS-CoV-2 (PCR) Not detected ASSESSMENT: Please see below. 1. Shortness of breath, improved 2. Leg edema, improved 3. Acute COPD exacerbation 4. CHF PLAN: 1. Continue IV Lasix 2. Discontinue Albuterol inhaler 3. Start DUO NEBS TID 4. Encourage to get up and about today. The patient needs to use a wheeled walker for ambulation. Plan and coordination of the patient's care discussed in the presence of Tax Associate Attorney and nurse. SCRIBED BY: Humberto REDDYist scribed while in presence of service performed by Dr. Fuentes/Lizette Latham APRN on 11/10/19 ([id number])
[2019-11-10] MEDS: GLUCOPHAGE PO SCH ×2 (08:46→17:22)
[2019-11-10] MEDS: ASPIRIN EC PO SCH (08:46)
[2019-11-10] MEDS: ZITHROMAX PO SCH (08:46)
[2019-11-10] MEDS: ALDACTONE PO SCH ×2 (08:46→20:27)
[2019-11-10] MEDS: ROCEPHIN 1 GM/50 ML D5W 1 GM/50 ML BAG IV SCH (08:46)
[2019-11-10] MEDS: COREG PO SCH ×2 (08:47→17:22)
[2019-11-10] MEDS: SYMBICORT 160-4.5 MCG INHALER IH SCH ×2 (08:47→20:28)
[2019-11-10] MEDS: ZYLOPRIM PO SCH (08:47)
[2019-11-10] MEDS: SOLU-CORTEF 250 MG IVP SCH ×2 (10:08→20:35)
--- NOTE | 2019-11-10 10:29 | PN ---
DATE OF SERVICE: 11/10/19 SUBJECTIVE: The patient was seen and examined with the nurse practitioner. The patient's condition is stable, improving. Edema is much less. Respiratory status improving with decreased breath sounds but good air entry. No evidence of CHF clinically. CONDITION: Stable. TIME SPENT: More than 30 minutes. Plan and coordination of the patient's care discussed in the presence of nurse. KENTRELL
[2019-11-10] MEDS: DUONEB NEB SCH ×2 (14:16→21:58)
[2019-11-10] MEDS: PRAVACHOL PO SCH (20:26)
[2019-11-10] MEDS: ATIVAN PO SCH (20:26)
[2019-11-10] MEDS: FLOMAX PO SCH (20:26)
[2019-11-11] MEDS: DUONEB NEB SCH ×2 (04:53→14:05)
[2019-11-11 05:24] LABS: BASOPHILS % (AUTO) 0.4 % (0.0-3.0); EOSINOPHILS % (AUTO) 0.2 % (0.0-7.0); HEMATOCRIT 42.7 % (42.0-52.0); HEMOGLOBIN 13.6 g/dl (14.0-18.0); IMMATURE GRANULOCYTE % (AUTO) 0.3 % (0.0-5.0); LYMPHOCYTES # (AUTO) 2.3 K/uL (0.60-3.4); LYMPHOCYTES % (AUTO) 20.9 (10.0-50.0); MEAN CORPUSCULAR HGB CONC 31.9 (31.8-35.4); MEAN CORPUSCULAR VOLUME 99.3 fl (80.0-94.0); MONOCYTES # (AUTO) 0.6 K/uL (0.4-2.0); MONOCYTES % (AUTO) 5.5 (0-10); NEUTROPHILS # (AUTO) 7.8 K/ul (2.0-6.9); NEUTROPHILS % (AUTO) 72.7 % (42.2-75.2); PLATELET COUNT 246 10^3/uL (140-440); RDW COEFFICIENT OF VARIATION 13.7 % (11.6-14.8); WHITE BLOOD COUNT 10.75 K/ul (4.2-10.2)
[2019-11-11] MEDS: SYNTHROID PO SCH (05:31)
[2019-11-11 05:35] VITALS: BP 135/81; TEMP 97.5
[2019-11-11 05:42] LABS: ALBUMIN 3.77 g/dL (3.5-5.0); ALKALINE PHOSPHATASE 49.1 U/L (56-119); ASPARTATE AMINO TRANSFERASE 28.6 U/L (17-59); BILIRUBIN,TOTAL 0.72 mg/dL (0.2-1.3); BLOOD UREA NITROGEN 27.6 mg/dL (9-20); CALCIUM 9.2 mg/dL (8.4-10.2); CARBON DIOXIDE 33.7 mmol/L (22-30.0); CHLORIDE 97.5 mmol/L (98-107); CREATININE 0.99 mg/dL (0.60-1.10); GLUCOSE 165.4 mg/dL (74-106); SODIUM 135.6 mmol/L (134.5-145); TOTAL PROTEIN 6.75 g/dL (6.3-8.2)
[2019-11-11] MEDS: LASIX IVP SCH (05:54)
[2019-11-11] MEDS: COREG PO SCH (08:34)
[2019-11-11] MEDS: ROCEPHIN 1 GM/50 ML D5W 1 GM/50 ML BAG IV SCH (08:34)
[2019-11-11] MEDS: ZYLOPRIM PO SCH (08:34)
[2019-11-11] MEDS: GLUCOPHAGE PO SCH (08:34)
[2019-11-11] MEDS: ALDACTONE PO SCH (08:34)
[2019-11-11] MEDS: ASPIRIN EC PO SCH (08:34)
[2019-11-11] MEDS: SYMBICORT 160-4.5 MCG INHALER IH SCH (08:35)
--- NOTE | 2019-11-11 09:12 | PCM.PROG ---
Attending Provider: ATTENDING PROVIDER: Dr. MACKENZIE FUENTES This patient is seen with Tonya Salguero, Nurse Practitioner. DATE OF SERVICE: 11/11/19 SUBJECTIVE: This 84 year old /WHITE M was hospitalized 11/08/19. The patient is resting in the bed comfortably. The patient has been up to the chair but is unsteady at times. He has benefited greatly from a wheeled walker. We will order one to have at home. Shortness of breath has improved. The patient is feeling much better. Leg swelling is more at baseline. We will discharge the patient home today. REVIEW OF SYSTEMS: CONSTITUTIONAL: No night sweats. Fatigue. No fever or chills. HEENT: Eyes: No visual changes. No eye pain. No eye discharge. ENT: No runny nose. No epistaxis. No sinus pain. No odynophagia. No congestion. RESPIRATORY: Cough, improved. No congestion. No hemoptysis. Shortness of breath, improved. CARDIOVASCULAR: No angina symptoms. No CHF symptoms. No atypical chest pain for CAD. No palpitations. No orthopnea.. GASTROINTESTINAL: No abdominal pain. No nausea or vomiting. No diarrhea or constipation. No hematemesis. No hematochezia. GENITOURINARY: No urgency. No frequency. No dysuria. No hematuria. No obstructive symptoms. No discharge. No pain. No significant abnormal bleeding. MUSCULOSKELETAL: No musculoskeletal pain; no joint swelling. NEUROLOGICAL: Awake, alert, oriented to time, place and person. No headache. No neck pain. No syncope. No seizures. No dizziness. PSYCHIATRIC: Not anxious. No depression. No suicidal thoughts. No homicidal thoughts. SKIN: No rash. No lesions. No wounds. ENDOCRINE: No unexplained weight loss. No weight gain. HEMATOLOGIC/LYMPHATIC: No anemia. No purpura. No petechiae. No prolonged or excessive bleeding. No palpable lymph nodes. PHYSICAL EXAMINATION: GENERAL: The patient is awake, alert and oriented, lying in bed in no distress. VITAL SIGNS: Temperature 97.5 F, Pulse 67, Respiratory Rate 20, BP 135/81, Pulse Ox 92% HEENT: Head normocephalic, atraumatic. Eyes: Extraocular muscles are intact. Pupils are equal, round and reactive to light and accommodation. Ears: No lesions. Nose appeared normal. Throat: No exudate or erythema. NECK: Supple. No JVD, no carotid bruit. No lymphadenopathy or thyromegaly. LUNGS: Diminished breath sounds. Clear to auscultation. Percussion note normal. Chest symmetrical. HEART: S1, S2, no S3. No murmurs. No cyanosis or clubbing. No ascites. Pulses: Dorsalis pedis and posterior tibial pulses +1 to +2 both sides. ABDOMEN: Soft. Non-tender. Bowel sounds active. No CVA tenderness. No mass felt. EXTREMITIES: Bilateral lower extremity 2+ edema. Full range of motion of all extremities, equal. NEUROLOGIC: No focal deficit. Cranial nerves II through XII are grossly intact. No headache, no double vision or headache. SKIN: Not dry. Intact. Turgor-normal. LYMPHATIC: No palpable lymph nodes/no lymphedema. MUSCULOSKELETAL: Normal joints with no swelling. Muscle tone is normal. LAB REVIEW: 11/11/19 05:15 11/11/19 05:15 11/11/19 05:15: Sodium 135.6, Potassium 4.09, Chloride 97.5 L, Carbon Dioxide 33.7 H, Anion Gap 8.49, BUN 27.6 H, Creatinine 0.99, Estimated GFR (MDRD) 72.00, BUN/Creatinine Ratio 27.87, Glucose 165.4 H, Calcium 9.20, Total Bilirubin 0.72, AST 28.6, ALT 21.0, Alkaline Phosphatase 49.1 L, Total Protein 6.75, Albumin 3.77, Globulin 2.98, Albumin/Globulin Ratio 1.26 11/11/19 05:15: WBC 10.75 H, RBC 4.30 L, Hgb 13.6 L, Hct 42.7, MCV 99.3 H, MCH 31.6 H, MCHC 31.9, RDW Coeff of Leonardo 13.7, Plt Count 246, Immature Gran % (Auto) 0.3, Neut % (Auto) 72.7, Lymph % (Auto) 20.9, [place] % (Auto) 5.5, Eos % (Auto) 0.2, Baso % (Auto) 0.4, Neut # (Auto) 7.8 H, Lymph # (Auto) 2.3, [place] # (Auto) 0.6, Eos # (Auto) 0.0, Baso # (Auto) 0.0, Immature Gran # (Auto) 0.0 ASSESSMENT: Please see below. 1. Shortness of breath, improved 2. Leg edema, improved 3. Acute COPD exacerbation 4. CHF PLAN: 1. 2D echo today 2. Omnicef 300mg BID for 10 days 3. Prednisone 10mg BID for 5 days 4. Continue NEBS at home 5. Elevate the legs 6. Decrease salt intake. 7. Wheeled walker 8. The patient is stable for discharge 9. We will see in the office next week 10.Fall precautions. Plan and coordination of the patient's care discussed in the presence of Installment Agent and nurse. SCRIBED BY: Humberto REDDYist scribed while in presence of service performed by Dr. Fuentes/Tonya Salguero APRN on 11/11/19 ([id number])
[2019-11-11] MEDS: SOLU-CORTEF 250 MG IVP SCH (10:01)
--- NOTE | 2019-11-11 14:17 | CM.DICTOOL ---
ADMISSION: 11/08/19 14:06 DISCHARGE: 2019 DATE OF SERVICE: 11/11/19 FINAL DIAGNOSIS SHORTNESS OF BREATH, IMPROVED LEG EDEMA, IMPROVED ACUTE COPD EXACERBATION CHF HX: CHRONIC BRONCHITIS CHRONIC LUNG DISEASE LEG EDEMA, BILATERAL HISTORY OF CHF HYPERTENSION OBESITY HYPOTHYROID DYSLIPIDEMIA GOUTY ARTHRITIS BPH ECHOCARDIOGRAM 05/2018: LVH, ENLARGED RIGHT VENTRICLE, NORMAL LV CONTRACTILITY, NORMAL VALVES and LVEF 72% PFT 05/2018: SEVERE COPD LAST VITALS Temp Pulse Resp BP Pulse Ox 97.5 F L 67 20 135/81 93 L 11/11/19 05:32 11/11/19 05:32 11/11/19 05:32 11/11/19 05:32 11/11/19 10:00 TAKE THESE MEDICATIONS AT HOME Albuterol/Ipratropium (Duoneb) 3 ml NEB RTQ8H [facility] Last Admin: 11/11/19 04:53 Dose: 3 ml Allopurinol (Zyloprim) 200 mg PO DAILY [facility] Last Admin: 11/11/19 08:34 Dose: 100 mg Carvedilol (Coreg) 3.125 mg PO BIDWM [facility] Last Admin: 11/11/19 08:34 Dose: 3.125 mg Levothyroxine Sodium (Synthroid) 100 mcg PO QDAC [facility] Last Admin: 11/11/19 05:31 Dose: 100 mcg Lorazepam (Ativan) 0.5 mg PO BEDTIME [facility] Last Admin: 11/10/19 20:26 Dose: 0.5 mg Metformin HCl (Glucophage) 500 mg PO BIDWM [facility] Last Admin: 11/11/19 08:34 Dose: 500 mg Pravastatin Sodium (Pravachol) 40 mg PO BEDTIME [facility] Last Admin: 11/10/19 20:26 Dose: 40 mg Spironolactone (Aldactone) 25 mg PO DAILY [facility] Last Admin: 11/11/19 08:34 Dose: 25 mg Tamsulosin HCl (Flomax) 0.4 mg PO BEDTIME [facility] Last Admin: 11/10/19 20:26 Dose: 0.4 mg LASIX 40 MG PO DAILY AC PULMICORT NEBULIZER 1 MG/2 ML NEBULIZER AT BEDTIME OMNICEF 300 MG PO BID X 10 DAYS ( START 11/12/2019) -- ( NEW) PREDNISONE 10 MG PO BID X 5 DAYS ( START 11/12/19-) -- ( NEW) ALLERGIES No Known Allergies Allergy (Verified 10/26/18 15:19) DISCONTINUED MEDICATIONS NONE NEW PRESCRIPTIONS: OMNICEF 300 MG PO BID X 10 DAYS ( START 11/12/2019) -- ( NEW) PREDNISONE 10 MG PO BID X 5 DAYS ( START 11/12/19-) -- ( NEW) SMOKING: NON-APPLICABLE DISEASE SPECIFIC EDUCATION: COPD EXAC CHF COVID 19 LAB REVIEW: 11/11/19 05:15 11/11/19 05:15 11/11/19 05:15: Sodium 135.6, Potassium 4.09, Chloride 97.5 L, Carbon Dioxide 33.7 H, Anion Gap 8.49, BUN 27.6 H, Creatinine 0.99, Estimated GFR (MDRD) 72.00, BUN/Creatinine Ratio 27.87, Glucose 165.4 H, Calcium 9.20, Total Bilirubin 0.72, AST 28.6, ALT 21.0, Alkaline Phosphatase 49.1 L, Total Protein 6.75, Albumin 3.77, Globulin 2.98, Albumin/Globulin Ratio 1.26 11/11/19 05:15: WBC 10.75 H, RBC 4.30 L, Hgb 13.6 L, Hct 42.7, MCV 99.3 H, MCH 31.6 H, MCHC 31.9, RDW Coeff of Leonardo 13.7, Plt Count 246, Immature Gran % (Auto) 0.3, Neut % (Auto) 72.7, Lymph % (Auto) 20.9, [place] % (Auto) 5.5, Eos % (Auto) 0.2, Baso % (Auto) 0.4, Neut # (Auto) 7.8 H, Lymph # (Auto) 2.3, [place] # (Auto) 0.6, Eos # (Auto) 0.0, Baso # (Auto) 0.0, Immature Gran # (Auto) 0.0 PLAN: DISCHARGE HOME TODAY, 2019, INDEPENDENT WITH SIGNIFICANT OTHER ACTIVITY: UP TOLERATED WITH FREQUENT REST PERIODS NO STRENUOUS ACTIVITY RECOGNIZE AND FOLLOW SOCIAL DISTANCING GUIDELINES WHEN OUT IN THE PUBLIC DIET: 2 GRAM SALT FOLLOW - UP : SEE DR. FUENTES/ GEOFFREY ACUNA APRN/ KERRY TRINIDAD APRN IN THE OFFICE ON THURSDAY, 2019 @ 0815 [facility], PET SCAN Thursday @ 815, WRITTEN INSTRUCTIONS PROVIDED CODE STATUS: DO NOT RESUSCITATE MR. LANDRY IS ALERT AND ORIENTED X 4. HE WALKS WITH A WHEELED WALKER. HAS BEEN USING HIS SIGNIFICANT OTHERS WALKER.ORDERED ONE FROM [facility]. CONTINUES TO HAVE A NON- PRODUCTIVE COUGH AND STILL GETS OUT OF BREATH WITH ACT IVITY, THIS IS LONG-TERM. ACTIVITY IS MORE TOLERABLE NOW. HE HAS OXYGEN AT HOME. EDEMA TO LEGS ARE CHRONIC, HOWEVER SOME IMPROVED. NUTRITIONAL AND FLUID INTAKE IS GOOD. SKIN IS INTACT. HE STATES THAT HIS SIGNIFICANT OTHER AND HIMSELF SHARE IADL AND ADL RESPONSIBILITIES. IS CONTINENT OF BOWEL AND BLADDER. LAST BM 11/08/2019. MD GEOFFREY MIDDLETON APRN ALYCE HANNAN, APRN
--- NOTE | 2019-11-14 13:28 | ECHO2D ---
Date of Exam: 11/11/2019 Ordering Physician: DR. MACKENZIE FUENTES Room #: SCU 1 Reason for Echo: SOB, COPD, HTN, DM, CHF M-Mode Normal Adult Results LV Dimensions Normal Adult Results AoV Opening excursions >1.6 >1.6 LVEDD-base- 3.5-5.8 5.3 Ao root dimensions 2.0-3.7 3.7 LVESD-base- 3.1-4.6 L. Atrium dimensions 1.9-3.8 4.2 Post. Wall thickness 0.8-1.1 1.2 IV septum (thickness) 0.7-1.2 1.3 Post. Wall excursion 0.72-1.3 NORMAL Septal motion NORMAL Systolic motion R. Ventricular cavity 1.5-2.0 3.5 LVEF 60% 49% Paradoxical septal wall motion NORMAL 2-D : 2-D M Mode Echocardiogram was performed using apical four chamber and left parasternal long and short axis views. Mitral, tricuspid and aortic valves appear to be normal. Contractility of the left ventricle seems to be normal, so is the cavity size. ENLARGED LEFT ATRIAL AND RIGHT VENTRICLE CAVITIES. Aortic root appears to be normal. There is no pericardial effusion. There is no thrombus noted in the left ventricle or left atrial cavity. No mitral valve prolapse noted. M-MODE: MV: NORMAL AV: NORMAL TV: NORMAL PV: CHAMBER SIZE: ENLARGED LEFT ATRIAL AND RIGHT VENTRICLE CAVITIES WALL MOTION: NORMAL PERICARDIUM: NORMAL INTERPRETATION: 1. LEFT VENTRICULAR HYPERTROPHY 2. ENLARGED LEFT ATRIAL AND RIGHT VENTRICLE CAVITIES 3. NORMAL LEFT VENTRICLE CONTRACTILITY 4. NORMAL VALVES MTDD
--- NOTE | 2019-11-14 14:43 | PN ---
11/08/2019: Level 5 11/09/2019: Intermediate 11/10/2019: Intermediate 11/11/2019: D as in discharge MTDD
--- NOTE | 2019-11-14 14:43 | DS ---
DATE OF SERVICE: 11/11/2019 FINAL DIAGNOSIS: SHORTNESS OF BREATH, IMPROVED LEG EDEMA, IMPROVED ACUTE COPD EXACERBATION CHF HISTORY: CHRONIC BRONCHITIS CHRONIC LUNG DISEASE LEG EDEMA, BILATERAL HISTORY OF CHF HYPERTENSION OBESITY HYPOTHYROID DYSLIPIDEMIA GOUTY ARTHRITIS BPH ECHOCARDIOGRAM 05/2018: LVH, ENLARGED RIGHT VENTRICLE, NORMAL LV CONTRACTILITY, NORMAL VALVES and LVEF 72% PFT 05/2018: SEVERE COPD LAST VITALS: Temp Pulse Resp BP Pulse Ox 97.5 F L 67 20 135/81 93 L 11/11/19 05:32 11/11/19 05:32 11/11/19 05:32 11/11/19 05:32 11/11/19 10:00 DISCHARGE INSTRUCTIONS: DISCHARGE HOME TODAY, 2019, INDEPENDENT WITH SIGNIFICANT OTHER. MD FOLLOW - UP : SEE DR. FUENTES/ GEOFFREY ACUNA APRN/ KERRY TRINIDAD APRN IN THE OFFICE ON 2019 @ 0815. [facility], PET SCAN Thursday @ 815, WRITTEN INSTRUCTIONS PROVIDED. CODE STATUS: DO NOT RESUSCITATE. TAKE THESE MEDICATIONS AT HOME: Albuterol/Ipratropium (Duoneb) 3 ml NEB RTQ8H [facility] Last Admin: 11/11/19 04:53 Dose: 3 ml Allopurinol (Zyloprim) 200 mg PO DAILY [facility] Last Admin: 11/11/19 08:34 Dose: 100 mg Carvedilol (Coreg) 3.125 mg PO BIDWM [facility] Last Admin: 11/11/19 08:34 Dose: 3.125 mg Levothyroxine Sodium (Synthroid) 100 mcg PO QDAC [facility] Last Admin: 11/11/19 05:31 Dose: 100 mcg Lorazepam (Ativan) 0.5 mg PO BEDTIME [facility] Last Admin: 11/10/19 20:26 Dose: 0.5 mg Metformin HCl (Glucophage) 500 mg PO BIDWM [facility] Last Admin: 11/11/19 08:34 Dose: 500 mg Pravastatin Sodium (Pravachol) 40 mg PO BEDTIME [facility] Last Admin: 11/10/19 20:26 Dose: 40 mg Spironolactone (Aldactone) 25 mg PO DAILY [facility] Last Admin: 11/11/19 08:34 Dose: 25 mg Tamsulosin HCl (Flomax) 0.4 mg PO BEDTIME [facility] Last Admin: 11/10/19 20:26 Dose: 0.4 mg LASIX 40 MG PO DAILY AC PULMICORT NEBULIZER 1 MG/2 ML NEBULIZER AT BEDTIME OMNICEF 300 MG PO BID X 10 DAYS ( START 11/12/2019) -- ( NEW) PREDNISONE 10 MG PO BID X 5 DAYS ( START 11/12/19-) -- ( NEW) ALLERGIES: No Known Allergies Allergy (Verified 10/26/18 15:19) DISCONTINUED MEDICATIONS: NONE NEW PRESCRIPTIONS: OMNICEF 300 MG PO BID X 10 DAYS ( START 11/12/2019) -- ( NEW) PREDNISONE 10 MG PO BID X 5 DAYS ( START 11/12/19-) -- ( NEW) SMOKING: NON-APPLICABLE DISEASE SPECIFIC EDUCATION: COPD EXAC CHF COVID 19 LAB REVIEW: 11/11/19 05:15 11/11/19 05:15 11/11/19 05:15: Sodium 135.6, Potassium 4.09, Chloride 97.5 L, Carbon Dioxide 33.7 H, Anion Gap 8.49, BUN 27.6 H, Creatinine 0.99, Estimated GFR (MDRD) 72.00, BUN/Creatinine Ratio 27.87, Glucose 165.4 H, Calcium 9.20, Total Bilirubin 0.72, AST 28.6, ALT 21.0, Alkaline Phosphatase 49.1 L, Total Protein 6.75, Albumin 3.77, Globulin 2.98, Albumin/Globulin Ratio 1.26 11/11/19 05:15: WBC 10.75 H, RBC 4.30 L, Hgb 13.6 L, Hct 42.7, MCV 99.3 H, MCH 31.6 H, MCHC 31.9, RDW Coeff of Leonardo 13.7, Plt Count 246, Immature Gran % (Auto) 0.3, Neut % (Auto) 72.7, Lymph % (Auto) 20.9, [place] % (Auto) 5.5, Eos % (Auto) 0.2, Baso % (Auto) 0.4, Neut # (Auto) 7.8 H, Lymph # (Auto) 2.3, [place] # (Auto) 0.6, Eos # (Auto) 0.0, Baso # (Auto) 0.0, Immature Gran # (Auto) 0.0 ACTIVITY: UP TOLERATED WITH FREQUENT REST PERIODS NO STRENUOUS ACTIVITY RECOGNIZE AND FOLLOW SOCIAL DISTANCING GUIDELINES WHEN OUT IN THE PUBLIC DIET: 2 GRAM SALT HOSPITAL COURSE: The patient was hospitalized with leg swelling and shortness of breath and was treated with IV Lasix, steroids and antibiotics. The patient has improved and his respiratory status has improved. He is feeling better and the appetite has improved. His problem is that he doesn't keep his legs elevated when he is supposed to at night and during the day time when he is resting. He is eating a lot of food with salt. He is obese along with severe chronic lung disease. The patient during the stay in the hospital didn't show any symptoms of CHF. Echocardiogram was practically unchanged with enlarged RV cavity but normal LV contractility. LA cavity is mildly enlarged. The patient's LV cavity is normal sized.Valves are normal. The patient at the time discharge does not have any coronary artery disease or CHF symptoms. As mentioned above the appetite has improved. Mental status has improved. He is talkative as usual now. His medications were not changed. He was explained about how change his lifestyle. Condition at the time of discharge is stable/guarded. TIME SPENT: More than 60 minutes. KENTRELL
--- NOTE | 2019-11-15 10:27 | PN ---
DATE OF SERVICE: 11/11/2019 DISCHARGE NOTE SUBJECTIVE: The patient was seen and examined with the Nurse Practitioner. The patient's condition is improving. The patient has no shortness of breath on minimal exertion likely he had. His status has improved. His leg edema is somewhat down. Explained about how to keep the edema down. Advised to take his medications on regular basis. He eats too much salt. Advised to lose some weight. PT also discussed with him. The patient patient had the diagnosis of acute exacerbation of COPD. He was discharged on antibiotic Omnicef with steroids. He is advised to continue to take his NEBS treatment. CONDITION: Stable PROGNOSIS: Guarded TIME SPENT: More than 30 minutes. Plan and coordination of the patient's care discussed in the presence of nurse. KENTRELL
== END 2019-11-11 15:35 | disposition home or self-care (01) | DRG 192 ==
LOC: SCU 14:06 → MEDSURG B 11-09 13:30
PROVIDERS: ADMIT Internal Medicine; ATTEND Internal Medicine

== ENCOUNTER 2021-01-15 11:26 | Inpatient (IN) ==
[2021-01-15 12:01] LABS: BORDETELLA PARAPERTUSSIS (PCR) NOT DETECTED (NOT DETECT); BORDETELLA PERTUSSIS (PCR) NOT DETECTED (NOT DETECT); CHLAMYDIA PNEUMONIAE (PCR) NOT DETECTED (NOT DETECT); CORONAVIRUS 229E (PCR) NOT DETECTED (NOT DETECT); CORONAVIRUS HKU1 (PCR) NOT DETECTED (NOT DETECT); CORONAVIRUS NL63 (PCR) NOT DETECTED (NOT DETECT); CORONAVIRUS OC43 (PCR) NOT DETECTED (NOT DETECT); HUMAN METAPNEUMOVIRUS (PCR) NOT DETECTED (NOT DETECT); INFLUENZA B (PCR) NOT DETECTED (NOT DETECT); MYCOPLASMA PNEUMONIAE (PCR) NOT DETECTED (NOT DETECT); PARAINFLUENZA VIRUS 1 (PCR) NOT DETECTED (NOT DETECT); PARAINFLUENZA VIRUS 2 (PCR) NOT DETECTED (NOT DETECT); PARAINFLUENZA VIRUS 3 (PCR) NOT DETECTED (NOT DETECT); PARAINFLUENZA VIRUS 4 (PCR) NOT DETECTED (NOT DETECT); RESPIRATORY SYNCYTIAL V (PCR) NOT DETECTED (NOT DETECT); SARS_COV_2 (PCR) NOT DETECTED (NOT DETECT)
[2021-01-15 12:52] LABS: ADENOVIRUS (PCR) NOT DETECTED (NOT DETECT); HUMAN RHINOVIRUS/ENTEROV (PCR) DETECTED (NOT DETECT)
[2021-01-15 13:40] LABS: ABG PH 7.47 (7.35-7.45); BEecf 10.5 (-2.0-3.0); COHb 3.2 (0.5-1.5); HCO3 34.2 (21-28); MetHb 0.9 (0-1.5); TCO2 35.6 (19-24); sO2 92.9 % (94-98); tHb 15.2 g/dl (11.7-17.4)
[2021-01-15 13:47] VITALS: BMI 29.4
[2021-01-15] MEDS ORDERED: LASIX IVP STA (13:54)
[2021-01-15] MEDS ORDERED: ATROPINE SULFATE PFS IVP PRN (13:57)
[2021-01-15] MEDS ORDERED: TYLENOL PO PRN (13:57)
[2021-01-15] MEDS ORDERED: NITROSTAT SL PRN (13:57)
[2021-01-15 14:20] LABS: BASOPHILS % (AUTO) 0.2 % (0.0-3.0); EOSINOPHILS # (AUTO) 0.1 K/ul (0.0-0.7); EOSINOPHILS % (AUTO) 0.5 % (0.0-7.0); HEMATOCRIT 45.2 % (42.0-52.0); HEMOGLOBIN 14.3 g/dl (14.0-18.0); IMMATURE GRANULOCYTE # (AUTO) 0.1 (0.0-1.0); IMMATURE GRANULOCYTE % (AUTO) 0.4 % (0.0-5.0); LYMPHOCYTES # (AUTO) 1.9 K/uL (0.60-3.4); LYMPHOCYTES % (AUTO) 14.7 (10.0-50.0); MEAN CORPUSCULAR HEMOGLOBIN 31.8 pg (27.0-31.0); MEAN CORPUSCULAR HGB CONC 31.6 (31.8-35.4); MEAN CORPUSCULAR VOLUME 100.7 fl (80.0-94.0); MONOCYTES # (AUTO) 1.1 K/uL (0.4-2.0); MONOCYTES % (AUTO) 8.2 (0-10); NEUTROPHILS # (AUTO) 9.7 K/ul (2.0-6.9); PLATELET COUNT 190 10^3/uL (140-440); RDW COEFFICIENT OF VARIATION 13.6 % (11.6-14.8); RED BLOOD COUNT 4.49 10^6/ul (4.70-6.10); WHITE BLOOD COUNT 12.81 K/ul (4.2-10.2)
[2021-01-15 14:37] LABS: ALBUMIN 3.73 g/dL (3.5-5.0); ALKALINE PHOSPHATASE 51.7 U/L (56-119); ASPARTATE AMINO TRANSFERASE 19.7 U/L (17-59); BILIRUBIN,TOTAL 1.87 mg/dL (0.2-1.3); BLOOD UREA NITROGEN 22.3 mg/dL (9-20); CALCIUM 8.42 mg/dL (8.4-10.2); CARBON DIOXIDE 38.6 mmol/L (22-30.0); CHLORIDE 95.8 mmol/L (98-107); CREATININE 1.23 mg/dL (0.60-1.10); SODIUM 137.3 mmol/L (134.5-145); TOTAL PROTEIN 6.68 g/dL (6.3-8.2)
[2021-01-15 14:43] LABS: BILIRUBIN,URINE Negative (NEGATIVE); CLARITY,URINE Clear (CLEAR); COLOR,URINE Yellow (YELLOW); GLUCOSE, URINE (UA) Negative (NEGATIVE); KETONES,URINE Negative (NEGATIVE); LEUKOCYTE ESTERASE ,URINE Negative (NEGATIVE); NITRITE,URINE Negative (NEGATIVE); PH,URINE 7.5 (5-9); PROTEIN,URINE 1+ (NEGATIVE); URINE, BLOOD Negative (NEGATIVE)
[2021-01-15 14:53] LABS: URINE WBC, MICROSCOPIC 0-2 (0-2)
[2021-01-15 14:54] LABS: MUCUS,URINE TRACE (NOT PRESENT)
[2021-01-15] MEDS: SOLU-CORTEF 250 MG IVP SCH ×2 (15:20→21:34)
[2021-01-15] MEDS: SODIUM CHLORIDE 1,000 ML IV SCH (15:21)
[2021-01-15] MEDS: ROCEPHIN 1 GM/50 ML D5W 1 GM/50 ML BAG IV SCH (16:05)
--- NOTE | 2021-01-15 16:41 | CT ---
EXAM: CT chest with and without contrast HISTORY: Shortness of breath COMPARISON: 06/27/2018 TECHNIQUE: CT chest performed with and without intravenous contrast. Coronal and sagittal reformatt ed images Obtained. FINDINGS: Thoracic inlet unremarkable. Heart normal in size. No pericardial effusion. Coronary ca lcifications. Aorta normal in caliber. Moderate atherosclerosis. No lymphadenopathy . Low density liver lesion measures slightly greater than simple fluid attenuation, though is decreased in size an d previously fluid attenuation, likely a cyst. Additional additional sub centimeter hypodensities in the liver, too small to characterize. No acute abnormalities of the bones. Degenerative change in the spine. Central airway patent. No pleural effusion or pneumothorax. Mild bibasilar atelectasis. Spiculated mass in the left upper lobe medially measuring 3.4 x 2.6 cm. Adjacent nodule measuring one point 3 x 1.2 cm. Artifact noted in the left perihilar region. IMPRESSION: 1. Unexpected findin.4 cm spiculated mass left upper lobe, highly suspicious for malignancy. R ecommend tissue sampling. Adjacent 1.3 cm nodule may also be malignant. 2. Mild bibasilar atelectasis 3. Coronary calcifications. All CT scans are performed using dose optimization techniques as appropriate to the performed exam an d include at least one of the following: Automated exposure control, adjustment of the mA and/or kV according t o size, and the use of iterative reconstruction technique.
[2021-01-15] MEDS: GLUCOPHAGE PO SCH (16:53)
[2021-01-15] MEDS: COREG PO SCH (16:53)
[2021-01-15] MEDS ORDERED: DUONEB NEB SCH (17:00)
[2021-01-15] MEDS: DUONEB NEB SCH (19:45)
[2021-01-15] MEDS: PULMICORT 1 MG/2 ML NEB SCH (19:45)
[2021-01-15] MEDS: FLOMAX PO SCH (20:42)
[2021-01-15] MEDS: ATIVAN PO SCH (20:42)
[2021-01-15] MEDS: PRAVACHOL PO SCH (20:42)
[2021-01-15] MEDS ORDERED: BUDESONIDE NEB SCH (21:00)
[2021-01-15] MEDS ORDERED: PULMICORT 1 MG/2 ML NEB SCH (21:00)
[2021-01-15] MEDS ORDERED: ATIVAN PO SCH (21:00)
[2021-01-16] MEDS: PULMICORT 1 MG/2 ML NEB SCH ×2 (04:20→20:55)
[2021-01-16] MEDS: DUONEB NEB SCH ×3 (04:20→20:55)
[2021-01-16 05:00] LABS: BASOPHILS % (AUTO) 0.1 % (0.0-3.0); HEMATOCRIT 42.8 % (42.0-52.0); HEMOGLOBIN 13.7 g/dl (14.0-18.0); IMMATURE GRANULOCYTE # (AUTO) 0.1 (0.0-1.0); IMMATURE GRANULOCYTE % (AUTO) 0.3 % (0.0-5.0); LYMPHOCYTES # (AUTO) 1.6 K/uL (0.60-3.4); LYMPHOCYTES % (AUTO) 10.7 (10.0-50.0); MONOCYTES # (AUTO) 0.7 K/uL (0.4-2.0); MONOCYTES % (AUTO) 4.9 (0-10); NEUTROPHILS # (AUTO) 12.2 K/ul (2.0-6.9); PLATELET COUNT 206 10^3/uL (140-440); RDW COEFFICIENT OF VARIATION 13.4 % (11.6-14.8); RED BLOOD COUNT 4.28 10^6/ul (4.70-6.10); WHITE BLOOD COUNT 14.52 K/ul (4.2-10.2)
[2021-01-16 05:14] LABS: ALANINE AMINOTRANSFERASE 15.9 U/L (0-50); ALBUMIN 3.54 g/dL (3.5-5.0); ALKALINE PHOSPHATASE 58.8 U/L (56-119); ASPARTATE AMINO TRANSFERASE 26.4 U/L (17-59); BILIRUBIN,TOTAL 1.02 mg/dL (0.2-1.3); BLOOD UREA NITROGEN 23.3 mg/dL (9-20); CALCIUM 8.26 mg/dL (8.4-10.2); CARBON DIOXIDE 34.5 mmol/L (22-30.0); CHLORIDE 96.6 mmol/L (98-107); CREATININE 0.97 mg/dL (0.60-1.10); GLUCOSE 173.3 mg/dL (74-106); POTASSIUM 4.01 mmol/L (3.5-5.1); TOTAL PROTEIN 6.57 g/dL (6.3-8.2)
[2021-01-16] MEDS: SOLU-CORTEF 250 MG IVP SCH ×3 (05:16→20:10)
[2021-01-16 05:23] LABS: SODIUM 136.9 mmol/L (134.5-145)
[2021-01-16] MEDS: SYNTHROID PO SCH (05:51)
[2021-01-16] MEDS ORDERED: LASIX IVP ONE (06:00)
[2021-01-16] MEDS ORDERED: LASIX TAB PO SCH (06:30)
[2021-01-16] MEDS ORDERED: SPIRONOLACTONE 25 MG PO SCH (09:00)
[2021-01-16] MEDS ORDERED: FLOMAX PO SCH (09:00)
[2021-01-16] MEDS: ROCEPHIN 1 GM/50 ML D5W 1 GM/50 ML BAG IV SCH (09:13)
[2021-01-16] MEDS: FLOMAX PO SCH ×2 (09:13→20:10)
[2021-01-16] MEDS: ZYLOPRIM PO SCH (09:13)
[2021-01-16] MEDS: COREG PO SCH ×2 (09:13→16:49)
[2021-01-16] MEDS: GLUCOPHAGE PO SCH ×2 (09:13→16:49)
[2021-01-16] MEDS: ALDACTONE PO SCH (09:13)
--- NOTE | 2021-01-16 11:16 | HP ---
DATE OF SERVICE: 01/15/2021 REASON FOR HOSPITALIZATION/HISTORY OF PRESENT ILLNESS: The patient is more short of breath, feet more swollen and tired/worn out. He is using NEBS and has been on antibiotics/Prednisone. still with left testicular pain. No signs of symptoms of CHF/CAD. 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 HEENT: No sinus drainage, no sore throat. RESPIRATORY: Cough, no congestion. CARDIOVASCULAR: No atypical chest pain for coronary artery disease. No angina and palpitations. Shortness of breath. CHF symptoms, GASTROINTESTINAL: No melena or abdominal pain. No GERD. GENITOURINARY: No hematuria, no prostatism, no polyuria. TRAY ROOM WORKER: No blackout, no dizziness, no headache, no double vision. GAIT: Wheelchair. MUSCULOSKELETAL: Osteoarthritis pain, no joint swelling. ENDOCRINE: No weight loss, Weight gain. SKIN: Not dry, no rash. PSYCHIATRIC: Not anxious, no depression, no suicidal thoughts, no homicidal thoughts. SOCIAL HISTORY: Marital Status: Single. Alcohol Usage: No. Tobacco Usage: Single. FAMILY HISTORY: Father Mother Brother 0 Sister 1 MEDICATIONS: Ativan 1mg QHS Pravastatin 40mg Aldactone 25m,g daily Allopurinol 100mg daily Metformin 500mg BID Synthroid 100mg daily Lasix 40mg daily Flomax 0.4mg daily NEB treatment QID Pulmicort 1mg QHS Coreg 3.125mg BID O2 at HS ALLERGIES: No known allergies PHYSICAL EXAMINATION: V/S: Pulse 85, Blood pressure 122/62, Temperature 98.2, Oxygen saturation 93%. Height 5'9. GENERAL APPEARANCE: Oriented times three. HEENT: Normal. NECK: No JVP, no bruits. RESPIRATORY: Severely decreased breath sounds. Creeps bilaterally. CARDIOVASCULAR: S1, S2, no S3, no murmur. No cyanosis, clubbing. No ascites. GI/ABDOMEN: No tenderness. Bowel sounds are active. EXTREMITIES: +3 bilateral lower extremity edema, pulses +1, equal. TRAY ROOM WORKER: Deep tendon reflexes, sensory, motor and gait all normal. RECTAL/PELVIC/PROSTATE: . ASSESSMENT: 1. Acute pneumonitis 2. Shortness of breath 3. Leg edema 4. Diabetes mellitus type II 5. Chronic leg edema 6. Chronic bronchitis 7. History of renal failure 8. Insomnia 9. 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 Admit 2. Routine telemetry orders. No cardiac markers 3. The patient will go through tent 4. CBC and CMP now and daily 5. Continue home medications 6. Hold Lasix PO 7. Lasix 40mg IV today and tomorrow 8. Rocephin 1gram IV daily 9. U/A 10.CT chest with and without now 11.Normal saline at 50cc an hour 12.BNP now 13.ABG on room air 14.O2 at 1-2 liters PRN 15.Increase Flomax 0.4mg BID 16.Elevate legs 17.Monitor I&O 18.DUO NEBS TID scheduled 19.Solu-Cortef 125mg IV Q 8 hours 20.Pulmicort NEB 1mg BID 21.Regular diet TIME SPENT: More than 70 minutes. MTDD
[2021-01-16] MEDS: SODIUM CHLORIDE 1,000 ML IV SCH (13:33)
--- NOTE | 2021-01-16 15:02 | RS.OTINEVL ---
Subjective - Patient information Date of Evaluation: 01/16/21 Date of Arrival on Unit: 01/15/21 Admitted From:: Home Diagnosis: ACT Pneumonitis, SOA, Leg edema PRECAUTIONS: risk for falls Usual Living Arrangement: With Others Living Arrangement Comments: Pt does not drive anymore. Pt's girlfriend passed from [place] in October of this year. Home Environment: House Medical History: Hypertension, COPD, Diabetes, CHF Medical History Comments:: CAD LATEX ALLERGY?: No Surgical History Comments:: skin CA, Medications: see chart Subjective Information/ Patient Comments:: Pt reports the stickers are pulling on him. - Level of function Prior to this admission, the patient could do the following:: Independent Selfcare, Independent Ambulation (pt amb short distances with rwx, pt states he sleeps in recliner) Abilities prior to this admission: Pt independent with self care and ambulation. Current Level of Function: Partially Dependent Comments: Pt is not always safe with functional mobility or ADLS. Current Equipment Used at Home: OXYGEN, NEBULIZER, SHOWER CHAIR Pain Assessment - Pain Pain Score: 0 Interventions - Objective Patient Orientation: Person, Situation Current Interventions: IV's, Oxygen, Telemetry Observation: Pt is not asking for help when he needs it. Pt is weak and not safe with his self cares. Pt can transfer CGA from EOB to chair. Interventions - ROM Right Upper Extremity AROM: Slight limitation Left Upper Extremity AROM: Slight limitation - Strength Right Upper Extremity Strength: Mild Weakness Left Upper Extremity Strength: Mild Weakness - Sensation Right Upper Extremity Sensation: Intact/Normal Left Upper Extremity Sensation: Intact/Normal Balance - Sitting Balance Static Sitting Balance: Good Dynamic Sitting Balance: Good - Standing Balance Static Standing Balance: Fair Dynamic Standing Balance: Fair ADL Skills - Self Feeding Self Feeding: Independent - Grooming Grooming: CGA Grooming Set-up: Sitting - Bathing Bathing UE: Not Tested Bathing LE: Not Tested - Dressing Dressing UE: Min Assist, 1 person assist Dressing LE: Mod Assist, 1 person assist - Toilet Management Toilet Hygiene: Independent Toilet Clothing Management: CGA Functional Mobility - Bed Mobility Rolling R/L: Independent Scooting: Independent Supine to Sit: Independent Sit to Supine: Independent - Transfers Sit to Stand: CGA Stand to Sit: CGA Stand Pivot Transfers: CGA - Safety Awareness Safety Awareness: Fair (.) BOBY INDEX SCORE: . Additional Treatment Performed - Additional units charged ADL: 15 - Time with patient Length of Evaluation: 18 Total treatment time: 33 Activities Do you enjoy playing games?: Yes Would you be interested in leaving your room for activities?: Yes Would you enjoy group activities?: Yes Do you have difficulty with your vision?: Yes (Stopped driving) Patient Interests:: Watching Television Patient Education Patient Education: Education of Plan of Care Teaching Recipient: Patient Teaching Methods: Discussion, Demonstration Assessment Problem List:: Decreased level of function Further Therapy Indicated?: Yes Evaluation Complexity: HISTORY: Medium, EXAM OF BODY SYSTEMS: Medium, CLINICAL DECISION MAKING: Medium Patient's Goal(s): To improve in breathing and return home. Short Term Goals - Goals GOAL 1: Pt to tolerated sink level ADLS with SUP. Goal to be met by: 01/21/21 GOAL 2: Pt to increase activity tolerace to 10 minutes. Goal to be met by: 01/21/21 GOAL 3: Pt to increase BUE strength to 4+/5. Goal to be met by: 01/21/21 GOAL 4: Pt to be Independent with BLE dressing. Goal to be met by: 01/21/21 Halfway Goals GOAL 1: Pt to be independent with Self cares. Goal to be met by: 01/22/21 GOAL 2: Pt to be Independent with ADLS at the sink. Goal to be met by: 01/22/21 GOAL 3: Pt to increase activity tolerance to 15 minutes. Goal to be met by: 01/22/21 Plan Plan of Care: Therapeutic EX, Therapeutic Activity, Self-Care/Home Management Frequency of Treatment: 1-2 X day, as tolerated Anticipated Discharge Destination: Home Treatment Diagnosis (ICD 10 Codes): Z74.1 Need for assistance with personal care, M25.61 Shoulder stiffness, R53.1 Weakness Has the Physician been added for Co-signature?: Yes
[2021-01-16] MEDS: ATIVAN PO SCH (20:10)
[2021-01-16] MEDS: PRAVACHOL PO SCH (20:10)
[2021-01-17] MEDS: PULMICORT 1 MG/2 ML NEB SCH ×2 (04:45→19:50)
[2021-01-17] MEDS: DUONEB NEB SCH ×3 (04:45→19:50)
[2021-01-17 05:15] LABS: BASOPHILS % (AUTO) 0.2 % (0.0-3.0); HEMATOCRIT 41.2 % (42.0-52.0); HEMOGLOBIN 13.1 g/dl (14.0-18.0); IMMATURE GRANULOCYTE % (AUTO) 0.3 % (0.0-5.0); LYMPHOCYTES # (AUTO) 1.6 K/uL (0.60-3.4); LYMPHOCYTES % (AUTO) 12.9 (10.0-50.0); MEAN CORPUSCULAR HEMOGLOBIN 31.6 pg (27.0-31.0); MEAN CORPUSCULAR HGB CONC 31.8 (31.8-35.4); MEAN CORPUSCULAR VOLUME 99.5 fl (80.0-94.0); MONOCYTES # (AUTO) 0.6 K/uL (0.4-2.0); MONOCYTES % (AUTO) 5.1 (0-10); NEUTROPHILS % (AUTO) 81.5 % (42.2-75.2); PLATELET COUNT 222 10^3/uL (140-440); RDW COEFFICIENT OF VARIATION 13.2 % (11.6-14.8); RED BLOOD COUNT 4.14 10^6/ul (4.70-6.10); WHITE BLOOD COUNT 12.21 K/ul (4.2-10.2)
[2021-01-17 05:22] LABS: ALANINE AMINOTRANSFERASE 18.6 U/L (0-50); ALBUMIN 3.35 g/dL (3.5-5.0); ASPARTATE AMINO TRANSFERASE 22.5 U/L (17-59); BILIRUBIN,TOTAL 0.55 mg/dL (0.2-1.3); BLOOD UREA NITROGEN 25.2 mg/dL (9-20); CALCIUM 8.22 mg/dL (8.4-10.2); CARBON DIOXIDE 35.1 mmol/L (22-30.0); CHLORIDE 97.9 mmol/L (98-107); CREATININE 1.03 mg/dL (0.60-1.10); POTASSIUM 3.8 mmol/L (3.5-5.1); SODIUM 138.1 mmol/L (134.5-145); TOTAL PROTEIN 6.16 g/dL (6.3-8.2)
[2021-01-17] MEDS: SYNTHROID PO SCH (05:36)
[2021-01-17] MEDS: SOLU-CORTEF 250 MG IVP SCH ×3 (05:49→21:17)
[2021-01-17] MEDS ORDERED: ATIVAN PO PRN (08:32)
[2021-01-17] MEDS: ROCEPHIN 1 GM/50 ML D5W 1 GM/50 ML BAG IV SCH (09:02)
[2021-01-17] MEDS: GLUCOPHAGE PO SCH ×2 (09:02→16:36)
[2021-01-17] MEDS: ZYLOPRIM PO SCH (09:02)
[2021-01-17] MEDS: COREG PO SCH ×2 (09:03→16:36)
[2021-01-17] MEDS: FLOMAX PO SCH ×2 (09:03→20:25)
[2021-01-17] MEDS: ALDACTONE PO SCH (09:03)
[2021-01-17] MEDS: LASIX TAB PO SCH (09:03)
--- NOTE | 2021-01-17 09:34 | PCM.PROG ---
Attending Provider: ATTENDING PROVIDER: Dr. MACKENZIE RAMIREZ This patient is seen with Lizette Latham, Nurse Practitioner. DATE OF SERVICE: 01/17/21 SUBJECTIVE: This 85 year old /WHITE M was hospitalized 01/15/21. Breathing has improved today. Leg edema about the same. Discussed mass noted on CAT scan. The patient is agreeable to see pulmonary. Didn't sleep well last night. REVIEW OF SYSTEMS: CONSTITUTIONAL: No night sweats. No fatigue, malaise, lethargy. No fever or chi lls. Weakness. HEENT: Eyes: No visual changes. No eye pain. No eye discharge. ENT: No runny nose. No epistaxis. No sinus pain. No odynophagia. No congestion. RESPIRATORY: Cough, no congestion. No hemoptysis. Shortness of breath. CARDIOVASCULAR: No angina symptoms. No CHF symptoms. No atypical chest pain for CAD. No palpitations. No orthopnea.. GASTROINTESTINAL: No abdominal pain. No nausea or vomiting. No diarrhea or constipation. No hematemesis. No hematochezia. GENITOURINARY: No urgency. No frequency. No dysuria. No hematuria. No obstructive symptoms. No discharge. No pain. No significant abnormal bleeding. MUSCULOSKELETAL: No musculoskeletal pain; no joint swelling. Leg edema. NEUROLOGICAL: Awake, alert, oriented to time, place and person. No headache. No neck pain. No syncope. No seizures. No dizziness. PSYCHIATRIC: Not anxious. No depression. No suicidal thoughts. No homicidal th oughts. SKIN: No rash. No lesions. No wounds. ENDOCRINE: No unexplained weight loss. No weight gain. HEMATOLOGIC/LYMPHATIC: No anemia. No purpura. No petechiae. No prolonged or excessive bleeding. No palpable lymph nodes. PHYSICAL EXAMINATION: GENERAL: The patient is awake, alert and oriented, sitting in bed in no distress. VITAL SIGNS: Temperature 97 F, Pulse 72, Respiratory Rate 18, BP 112/71, Pulse Ox 95% HEENT: Head normocephalic, atraumatic. Eyes: Extraocular muscles are intact. Pupils are equal, round and reactive to light and accommodation. Ears: No l esions. Nose appeared normal. Throat: No exudate or erythema. NECK: Supple. No JVD, no carotid bruit. No lymphadenopathy or thyromegaly. LUNGS: Diminished breath sounds. Clear to auscultation. Percussion note normal. Chest symmetrical. HEART: S1, S2, no S3. No murmurs. No cyanosis or clubbing. No ascites. Pulses: Dorsalis pedis and posterior tibial pulses +1 to +2 both sides. ABDOMEN: Soft. Non-tender. Bowel sounds active. No CVA tenderness. No mass felt. EXTREMITIES: +3 bilateral leg edema. Full range of motion of all extremities, equal. NEUROLOGIC: No focal deficit. Cranial nerves II through XII are grossly intact. No headache. No double vision. SKIN: Not dry. Intact. Turgor-normal. LYMPHATIC: No palpable lymph nodes/no lymphedema. MUSCULOSKELETAL: Normal joints with no swelling. Muscle tone is normal. LAB REVIEW: 01/17/21 04:42 01/17/21 04:42 01/17/21 04:42: Sodium 138.1, Potassium 3.80, Chloride 97.9 L, Carbon Dioxide 35.1 H, Anion Gap 8.90, BUN 25.2 H, Creatinine 1.03, Estimated GFR (MDRD) 69.00, BUN/Creatinine Ratio 24.46, Glucose 171.0 H, Calcium 8.22 L, Total Bilirubin 0.55, AST 22.5, ALT 18.6, Alkaline Phosphatase 47.0 L, Total Protein 6.16 L, Albumin 3.35 L, Globulin 2.81, Albumin/Globulin Ratio 1.19 01/17/21 04:42: WBC 12.21 H, RBC 4.14 L, Hgb 13.1 L, Hct 41.2 L, MCV 99.5 H, MCH 31.6 H, MCHC 31.8, RDW Coeff of Leonardo 13.2, Plt Count 222, Immature Gran % (Auto) 0.3, Neut % (Auto) 81.5 H, Lymph % (Auto) 12.9, [place] % (Auto) 5.1, Eos % (Auto) 0.0, Baso % (Auto) 0.2, Neut # (Auto) 10.0 H, Lymph # (Auto) 1.6, [place] # (Auto) 0.6, Eos # (Auto) 0.0, Baso # (Auto) 0.0, Immature Gran # (Auto) 0.0 ASSESSMENT: Please see below. 1. Acute pneumonitis 2. Left lung mass 3. Chronic leg edema 4. Cor Pulmonale 5. COPD PLAN: 1. Give 0.5mg of Ativan at night 2. Resume Lasix 3. Referral has been made to Dr. Mohan 4. Discontinue IV fluids. Plan and coordination of the patient's care discussed in the presence of Stable Helper and nurse. SCRIBED BY: Mauro REDDY scribed while in presence of service performed by Dr. Ramirez/Lizette Latham APRN on 01/17/21 ([id number])
[2021-01-17] MEDS: SODIUM CHLORIDE 1,000 ML IV SCH (16:19)
[2021-01-17] MEDS: ATIVAN PO SCH (20:25)
[2021-01-17] MEDS: PRAVACHOL PO SCH (20:25)
[2021-01-18] MEDS: PULMICORT 1 MG/2 ML NEB SCH (04:45)
[2021-01-18] MEDS: DUONEB NEB SCH (04:45)
[2021-01-18] MEDS: SOLU-CORTEF 250 MG IVP SCH ×2 (04:55→12:45)
[2021-01-18 05:14] LABS: BASOPHILS % (AUTO) 0.1 % (0.0-3.0); HEMATOCRIT 39.1 % (42.0-52.0); HEMOGLOBIN 12.4 g/dl (14.0-18.0); IMMATURE GRANULOCYTE % (AUTO) 0.4 % (0.0-5.0); LYMPHOCYTES # (AUTO) 1.4 K/uL (0.60-3.4); LYMPHOCYTES % (AUTO) 13.6 (10.0-50.0); MEAN CORPUSCULAR HEMOGLOBIN 31.6 pg (27.0-31.0); MEAN CORPUSCULAR HGB CONC 31.7 (31.8-35.4); MEAN CORPUSCULAR VOLUME 99.7 fl (80.0-94.0); MONOCYTES # (AUTO) 0.6 K/uL (0.4-2.0); MONOCYTES % (AUTO) 5.8 (0-10); NEUTROPHILS # (AUTO) 8.2 K/ul (2.0-6.9); NEUTROPHILS % (AUTO) 80.1 % (42.2-75.2); PLATELET COUNT 217 10^3/uL (140-440); RDW COEFFICIENT OF VARIATION 13.2 % (11.6-14.8); RED BLOOD COUNT 3.92 10^6/ul (4.70-6.10); WHITE BLOOD COUNT 10.21 K/ul (4.2-10.2)
[2021-01-18 05:28] VITALS: BP 115/73; TEMP 97.6
[2021-01-18 05:31] LABS: ALANINE AMINOTRANSFERASE 26.4 U/L (0-50); ALBUMIN 3.04 g/dL (3.5-5.0); ALKALINE PHOSPHATASE 51.2 U/L (56-119); ASPARTATE AMINO TRANSFERASE 25.4 U/L (17-59); BILIRUBIN,TOTAL 0.4 mg/dL (0.2-1.3); BLOOD UREA NITROGEN 23.5 mg/dL (9-20); CALCIUM 7.79 mg/dL (8.4-10.2); CARBON DIOXIDE 34.9 mmol/L (22-30.0); CHLORIDE 98.3 mmol/L (98-107); CREATININE 0.94 mg/dL (0.60-1.10); GLUCOSE 208.8 mg/dL (74-106); POTASSIUM 3.4 mmol/L (3.5-5.1); SODIUM 137.1 mmol/L (134.5-145); TOTAL PROTEIN 5.73 g/dL (6.3-8.2)
[2021-01-18] MEDS: LASIX TAB PO SCH (05:44)
[2021-01-18] MEDS: SYNTHROID PO SCH (05:44)
[2021-01-18] MEDS: GLUCOPHAGE PO SCH (08:40)
[2021-01-18] MEDS: FLOMAX PO SCH (08:40)
[2021-01-18] MEDS: COREG PO SCH (08:40)
[2021-01-18] MEDS: ROCEPHIN 1 GM/50 ML D5W 1 GM/50 ML BAG IV SCH (08:40)
[2021-01-18] MEDS: ZYLOPRIM PO SCH (08:40)
[2021-01-18] MEDS: ALDACTONE PO SCH (08:40)
[2021-01-18] MEDS ORDERED: K-DUR PO ONE (09:24)
--- NOTE | 2021-01-18 12:05 | CM.DICTOOL ---
ADMISSION: 01/15/21 13:00 DISCHARGE: JANUARY 18, 2021 DATE OF SERVICE: 01/18/21 FINAL DIAGNOSIS ACUTE PNEUMONITIS COPD EXACERBATION LEG EDEMA SPICULATED MASS LEFT UPPER LOBE, 3.4 CM (CT 01/15/21) NODULE, LEFT LUNG 1.3 CM (CT 01/15/21) DIABETES MELLITUS, TYPE 2 CHRONIC LEG EDEMA CHRONIC BRONCHITIS RECURRENT GOUT HYPERTENSION CONGESTIVE HEART FAILURE COPD, SEVERE OBESITY, BMI 29 HYPOTHYROIDISM B12 DEFICIENCY COR PULMONALE METABOLIC SYNDROME DJD LUMBAR SPINE BENIGN PROSTATIC HYPERTROPHY ECHOCARDIOGRAM (11/2019) LVEF 49% LVH ENLARGED LEFT ATRIAL AND RIGHT VENTRICLE CAVITIES LAST VITALS Temp Pulse Resp BP Pulse Ox 97.6 F 62 20 115/73 94 L 01/18/21 05:23 01/18/21 05:23 01/18/21 05:23 01/18/21 05:23 01/18/21 10:00 TAKE THESE MEDICATIONS AT HOME Albuterol/Ipratropium (Ipratropium/Albuterol Vial.Neb) 3 ml NEB RTQID [facility] Last Admin: 01/18/21 04:45 Dose: 3 ml Documented by: Allopurinol (Allopurinol 100 Mg Tablet) 200 mg PO DAILY [facility] Last Admin: 01/18/21 08:40 Dose: 200 mg Documented by: Budesonide (Budesonide 1 Mg/2 Ml Vial.Neb) 1 mg NEB AT BEDTIME [facility] Last Admin: 01/18/21 04:45 Dose: 1 mg Documented by: Carvedilol (Carvedilol 3.125 Mg Tablet) 3.125 mg PO BIDWM [facility] Last Admin: 01/18/21 08:40 Dose: 3.125 mg Documented by: Furosemide (Furosemide 40 Mg Tablet) 40 mg PO QDAC [facility] Last Admin: 01/18/21 05:44 Dose: 40 mg Documented by: Levothyroxine Sodium (Levothyroxine Sodium 100 Mcg Tablet) 100 mcg PO QDAC [facility] Last Admin: 01/18/21 05:44 Dose: 100 mcg Documented by: Lorazepam (Lorazepam 1 Mg Tablet) 1 mg PO BEDTIME [facility] Last Admin: 01/17/21 20:25 Dose: 1 mg Documented by: Metformin HCl (Metformin Hcl 500 Mg Tablet) 500 mg PO BIDWM [facility] Last Admin: 01/18/21 08:40 Dose: 500 mg Documented by: Pravastatin Sodium (Pravastatin Sodium 40 Mg Tablet) 40 mg PO BEDTIME [facility] Last Admin: 01/17/21 20:25 Dose: 40 mg Documented by: Spironolactone (Spironolactone 25 Mg Tablet) 25 mg PO DAILY [facility] Last Admin: 01/18/21 08:40 Dose: 25 mg Documented by: Tamsulosin HCl (Tamsulosin Hcl 0.4 Mg Cap.Er.24h) 0.4 mg PO BID [facility] Last Admin: 01/18/21 08:40 Dose: 0.4 mg Documented by: KEFLEX 500 MG TID FOR 5 DAYS (RX) PREDNISONE 10 MG BID FOR 5 DAYS, THEN 10 MG DAILY FOR 5 DAYS (RX) ALLERGIES No Known Allergies Allergy (Verified 01/16/21 12:19) DISCONTINUED MEDICATIONS NONE NEW PRESCRIPTIONS: KEFLEX 500 MG TID FOR 5 DAYS PREDNISONE 10 MG BID FOR 5 DAYS, THEN 10 MG DAILY FOR 5 DAYS SMOKING: NOT APPLICABLE DISEASE SPECIFIC EDUCATION: NEW MEDICATIONS LEG EDEMA, DAILY WEIGHT REFERRAL TO PULMONARY DISEASE APPOINTMENT LAB REVIEW: 01/18/21 04:47 01/18/21 04:47 01/18/21 04:47: Sodium 137.1, Potassium 3.40 L, Chloride 98.3, Carbon Dioxide 34.9 H, Anion Gap 7.30, BUN 23.5 H, Creatinine 0.94, Estimated GFR (MDRD) 76.00, BUN/Creatinine Ratio 25.00, Glucose 208.8 H, Calcium 7.79 L, Total Bilirubin 0.40, AST 25.4, ALT 26.4, Alkaline Phosphatase 51.2 L, Total Protein 5.73 L, Albumin 3.04 L, Globulin 2.69, Albumin/Globulin Ratio 1.13 01/18/21 04:47: WBC 10.21 H, RBC 3.92 L, Hgb 12.4 L, Hct 39.1 L, MCV 99.7 H, MCH 31.6 H, MCHC 31.7 L, RDW Coeff of Leonardo 13.2, Plt Count 217, Immature Gran % (Auto) 0.4, Neut % (Auto) 80.1 H, Lymph % (Auto) 13.6, [place] % (Auto) 5.8, Eos % (Auto) 0.0, Baso % (Auto) 0.1, Neut # (Auto) 8.2 H, Lymph # (Auto) 1.4, [place] # (Auto) 0.6, Eos # (Auto) 0.0, Baso # (Auto) 0.0, Immature Gran # (Auto) 0.0 PLAN: DISCHARGE HOME DIET: CONSISTENT CARBOHYDRATES, HEART HEALTHY ACTIVITY: RESUME ACTIVITY TOLERATED ELEVATE LEGS ABOVE THE LEVEL OF THE HIPS WHEN SITTING WEIGH DAILY, REPORT WEIGHT GAIN OF OVER 5 POUNDS IN ONE WEEK TO MD CONTINUE TO USE OXYGEN AT 2 LITERS CONTINUE TO USE NEBULIZER TREATMENTS RECOMMENDED AN APPOINTMENT IS SCHEDULED WITH DR. FUENTES/GEOFFREY ACUNA APRN/KERRY TRINIDAD APRN ON December AT 1:30 PM A REFERRAL HAS BEEN SENT TO [facility] IN [place], [place] REGARDING LEFT LUNG NODULE/MASS YOU WILL BE CALLED BY THEIR OFFICE WITH AN APPOINTMENT AFTER THE RECORDS ARE REVIEWED CODE STATUS: DO NOT RESUSCITATE MR. LANDRY IS ALERT AND ORIENTED X 4. HE IS AGREEABLE TO PLANS TO DISCHARGE HOME TODAY. MR. LANDRY LIVES IN HIS OWN HOME. AT THE PRESENT TIME, HE IS NOT LIVING BY HIMSELF, BUT HAS A FRIEND THAT IS STAYING WITH HIM AT LEAST UNTIL MARCH. MR. LANDRY IS INDEPENDENT WITH ADL'S. MR. LANDRY IS INDEPENDENT WITH FEEDING. HE HAS A GOOD APPETITE; CONSUMING 100% OF ALL MEALS. MR. LANDRY IS CONTINENT OF BOWEL AND BLADDER. HE USES THE URINAL FOR VOIDING, BUT ALSO AMBULATES TO THE BATHROOM WITH USE OF THE ROLLING WALKER AND STAFF ASSIST. MR. LANDRY TRANSFERS FROM THE BED TO THE RECLINER WITH STAFF ASSIST OF 1. HE IS AMBULATORY IN THE HALLWAY WITH USE OF THE ROLLING WALKER AND STAFF ASSIST OF 1. MR. LANDRY HAS FOR HIS USE AT HOME A NEBULIZER, OXYGEN AND A SHOWER CHAIR. HE ALSO RECEIVES HOME DELIVERED MEALS AT LUNCH TIME. HYDRATION STATUS IS GOOD. SKIN IS INTACT. MACKENZIE FUENTES MD
--- NOTE | 2021-01-18 12:54 | DS ---
DATE OF SERVICE: 01/18/2021 FINAL DIAGNOSIS: ACUTE PNEUMONITIS COPD EXACERBATION LEG EDEMA SPICULATED MASS LEFT UPPER LOBE, 3.4 CM (CT 01/15/21) NODULE, LEFT LUNG 1.3 CM (CT 01/15/21) DIABETES MELLITUS, TYPE 2 CHRONIC LEG EDEMA CHRONIC BRONCHITIS RECURRENT GOUT HYPERTENSION CONGESTIVE HEART FAILURE COPD, SEVERE OBESITY, BMI 29 HYPOTHYROIDISM B12 DEFICIENCY COR PULMONALE METABOLIC SYNDROME DJD LUMBAR SPINE BENIGN PROSTATIC HYPERTROPHY ECHOCARDIOGRAM (11/2019) LVEF 49% LVH ENLARGED LEFT ATRIAL AND RIGHT VENTRICLE CAVITIES LAST VITALS: Temp Pulse Resp BP Pulse Ox 97.6 F 62 20 115/73 94 L 01/18/21 05:23 01/18/21 05:23 01/18/21 05:23 01/18/21 05:23 01/18/21 10:00 DISCHARGE INSTRUCTIONS: DISCHARGE HOME. WEIGH DAILY, REPORT WEIGHT GAIN OF OVER 5 POUNDS IN ONE WEEK TO MD, CONTINUE TO USE OXYGEN AT 2 LITERS, CONTINUE TO USE NEBULIZER TREATMENTS RECOMMENDED. AN APPOINTMENT IS SCHEDULED WITH DR. FUENTES/GEOFFREY ACUNA APRN/KERRY TRINIDAD APRN ON December AT 1:30 PM. A REFERRAL HAS BEEN SENT TO [facility] IN [place], [place] REGARDING LEFT LUNG NODULE/MASS. YOU WILL BE CALLED BY THEIR OFFICE WITH AN APPOINTMENT AFTER THE RECORDS ARE REVIEWED. CODE STATUS: DO NOT RESUSCITATE TAKE THESE MEDICATIONS AT HOME: Albuterol/Ipratropium (Ipratropium/Albuterol Vial.Neb) 3 ml NEB RTQID [facility] Last Admin: 01/18/21 04:45 Dose: 3 ml Documented by: Allopurinol (Allopurinol 100 Mg Tablet) 200 mg PO DAILY [facility] Last Admin: 01/18/21 08:40 Dose: 200 mg Documented by: Budesonide (Budesonide 1 Mg/2 Ml Vial.Neb) 1 mg NEB AT BEDTIME [facility] Last Admin: 01/18/21 04:45 Dose: 1 mg Documented by: Carvedilol (Carvedilol 3.125 Mg Tablet) 3.125 mg PO BIDWM [facility] Last Admin: 01/18/21 08:40 Dose: 3.125 mg Documented by: Furosemide (Furosemide 40 Mg Tablet) 40 mg PO QDAC [facility] Last Admin: 01/18/21 05:44 Dose: 40 mg Documented by: Levothyroxine Sodium (Levothyroxine Sodium 100 Mcg Tablet) 100 mcg PO QDAC [facility] Last Admin: 01/18/21 05:44 Dose: 100 mcg Documented by: Lorazepam (Lorazepam 1 Mg Tablet) 1 mg PO BEDTIME [facility] Last Admin: 01/17/21 20:25 Dose: 1 mg Documented by: Metformin HCl (Metformin Hcl 500 Mg Tablet) 500 mg PO BIDWM [facility] Last Admin: 01/18/21 08:40 Dose: 500 mg Documented by: Pravastatin Sodium (Pravastatin Sodium 40 Mg Tablet) 40 mg PO BEDTIME [facility] Last Admin: 01/17/21 20:25 Dose: 40 mg Documented by: Spironolactone (Spironolactone 25 Mg Tablet) 25 mg PO DAILY [facility] Last Admin: 01/18/21 08:40 Dose: 25 mg Documented by: Tamsulosin HCl (Tamsulosin Hcl 0.4 Mg Cap.Er.24h) 0.4 mg PO BID [facility] Last Admin: 01/18/21 08:40 Dose: 0.4 mg Documented by: KEFLEX 500 MG TID FOR 5 DAYS (RX) PREDNISONE 10 MG BID FOR 5 DAYS, THEN 10 MG DAILY FOR 5 DAYS (RX) ALLERGIES: No Known Allergies Allergy (Verified 01/16/21 12:19) DISCONTINUED MEDICATIONS: NONE NEW PRESCRIPTIONS: KEFLEX 500 MG TID FOR 5 DAYS PREDNISONE 10 MG BID FOR 5 DAYS, THEN 10 MG DAILY FOR 5 DAYS SMOKING: NOT APPLICABLE DISEASE SPECIFIC EDUCATION: NEW MEDICATIONS LEG EDEMA, DAILY WEIGHT REFERRAL TO PULMONARY DISEASE APPOINTMENT LAB REVIEW: 01/18/21 04:47 01/18/21 04:47 01/18/21 04:47: Sodium 137.1, Potassium 3.40 L, Chloride 98.3, Carbon Dioxide 34.9 H, Anion Gap 7.30, BUN 23.5 H, Creatinine 0.94, Estimated GFR (MDRD) 76.00, BUN/Creatinine Ratio 25.00, Glucose 208.8 H, Calcium 7.79 L, Total Bilirubin 0.40, AST 25.4, ALT 26.4, Alkaline Phosphatase 51.2 L, Total Protein 5.73 L, Albumin 3.04 L, Globulin 2.69, Albumin/Globulin Ratio 1.13 01/18/21 04:47: WBC 10.21 H, RBC 3.92 L, Hgb 12.4 L, Hct 39.1 L, MCV 99.7 H, MCH 31.6 H, MCHC 31.7 L, RDW Coeff of Leonardo 13.2, Plt Count 217, Immature Gran % (Auto) 0.4, Neut % (Auto) 80.1 H, Lymph % (Auto) 13.6, [place] % (Auto) 5.8, Eos % (Auto) 0.0, Baso % (Auto) 0.1, Neut # (Auto) 8.2 H, Lymph # (Auto) 1.4, [place] # (Auto) 0.6, Eos # (Auto) 0.0, Baso # (Auto) 0.0, Immature Gran # (Auto) 0.0 DIET: CONSISTENT CARBOHYDRATES, HEART HEALTHY ACTIVITY: RESUME ACTIVITY TOLERATED ELEVATE LEGS ABOVE THE LEVEL OF THE HIPS WHEN SITTING HOSPITAL COURSE: 85 year old white male hospitalized with acute pneumonitis/bronchitis with shortness of breath and leg edema. The patient was treated while in the hospital with IV steroids, antibiotics and NEBS. Condition has improved remarkably. He is feeling a lot better. appetite has improved. The problem is that there isn't anyone at home to take care of him around the clock with meals and medications. His life silk snapper he was living with and her son is taking care of him. The patient will be discharged on the same medications. The patient had new findings involving lung atypical mass which he is referred to pulmonary physician. He was a heavy smoker and quite for past few years. No hematuria, no symptoms from the mass. 2019 CT scan did not show this mass. Condition is stable. He will be discharged home on steroids and antibiotics. He will be seen on followed in 7-10 days on follow-up. TIME SPENT: More than 60 minutes. KENTRELL
--- NOTE | 2021-01-18 12:58 | PCM.PROG ---
Attending Provider: ATTENDING PROVIDER: Dr. MACKENZIE FUENTES DATE OF SERVICE: 01/18/21 SUBJECTIVE: This 85 year old /WHITE M was hospitalized 01/15/21 with acute persistent shortness of breath and leg edema. His condition has improved. Feeling better. Appetite has improved. He has gained some weight. Edema is more or less the same with some pitting as well as none pitting. Lungs findings are better. Mental status is always normal but more alert. He will be discharged home to be taken care of by his girlfriend's son, ANNELISE until he goes back to work in March. REVIEW OF SYSTEMS: CONSTITUTIONAL: No night sweats. No fatigue, malaise, lethargy. No fever or chills. HEENT: Eyes: No visual changes. No eye pain. No eye discharge. ENT: No runny nose. No epistaxis. No sinus pain. No odynophagia. No congestion. RESPIRATORY: No cough, no congestion. No hemoptysis. No shortness of breath. CARDIOVASCULAR: No angina symptoms. No CHF symptoms. No atypical chest pain for CAD. No palpitations. No orthopnea.. GASTROINTESTINAL: No abdominal pain. No nausea or vomiting. No diarrhea or constipation. No hematemesis. No hematochezia. GENITOURINARY: No urgency. No frequency. No dysuria. No hematuria. No obstructive symptoms. No discharge. No pain. No significant abnormal bleeding. MUSCULOSKELETAL: No musculoskeletal pain; no joint swelling. NEUROLOGICAL: Awake, alert, oriented to time, place and person. No headache. No neck pain. No syncope. No seizures. No dizziness. PSYCHIATRIC: Not anxious. No depression. No suicidal thoughts. No homicidal thoughts. SKIN: No rash. No lesions. No wounds. ENDOCRINE: No unexplained weight loss. No weight gain. HEMATOLOGIC/LYMPHATIC: No anemia. No purpura. No petechiae. No prolonged or excessive bleeding. No palpable lymph nodes. PHYSICAL EXAMINATION: GENERAL: The patient is awake, alert and oriented, sitting in bed in no distress. VITAL SIGNS: Temperature 97.6 F, Pulse 62, Respiratory Rate 20, BP 115/73, Pulse Ox 92% HEENT: Head normocephalic, atraumatic. Eyes: Extraocular muscles are intact. Pupils are equal, round and reactive to light and accommodation. Ears: No lesions. Nose appeared normal. Throat: No exudate or erythema. NECK: Supple. No JVD, no carotid bruit. No lymphadenopathy or thyromegaly. LUNGS: Clear to auscultation. Percussion note normal. Chest symmetrical. HEART: S1, S2, no S3. No murmurs. No cyanosis or clubbing. No ascites. Pulses: Dorsalis pedis and posterior tibial pulses +1 to +2 both sides. ABDOMEN: Soft. Non-tender. Bowel sounds active. No CVA tenderness. No mass felt. EXTREMITIES: No edema. Full range of motion of all extremities, equal. NEUROLOGIC: No focal deficit. Cranial nerves II through XII are grossly intact. No headache, no double vision or headache. SKIN: Warm and dry. Intact. Turgor-normal. LYMPHATIC: No palpable lymph nodes/no lymphedema. MUSCULOSKELETAL: Normal joints with no swelling. Muscle tone is normal. LAB REVIEW: 01/18/21 04:47 01/18/21 04:47 01/18/21 04:47: Sodium 137.1, Potassium 3.40 L, Chloride 98.3, Carbon Dioxide 34.9 H, Anion Gap 7.30, BUN 23.5 H, Creatinine 0.94, Estimated GFR (MDRD) 76.00, BUN/Creatinine Ratio 25.00, Glucose 208.8 H, Calcium 7.79 L, Total Bilirubin 0.40, AST 25.4, ALT 26.4, Alkaline Phosphatase 51.2 L, Total Protein 5.73 L, Albumin 3.04 L, Globulin 2.69, Albumin/Globulin Ratio 1.13 01/18/21 04:47: WBC 10.21 H, RBC 3.92 L, Hgb 12.4 L, Hct 39.1 L, MCV 99.7 H, MCH 31.6 H, MCHC 31.7 L, RDW Coeff of Leonardo 13.2, Plt Count 217, Immature Gran % (Auto) 0.4, Neut % (Auto) 80.1 H, Lymph % (Auto) 13.6, [place] % (Auto) 5.8, Eos % (Auto) 0.0, Baso % (Auto) 0.1, Neut # (Auto) 8.2 H, Lymph # (Auto) 1.4, [place] # (Auto) 0.6, Eos # (Auto) 0.0, Baso # (Auto) 0.0, Immature Gran # (Auto) 0.0 ASSESSMENT: Please see below. 1. COPD exacerbation improved with steroids and antibiotics. PLAN: 1. K-tab 20mew times two 2. Keflex 500mg TID for 5 days 3. Prednisone 10mg BID for 5 days then daily for 10 days. 4. Discharge home Plan and coordination of the patient's care discussed in the presence of Gardening Supervisor and nurse. SCRIBED BY: Mauro REDDY scribed while in presence of service performed by Dr. MACKENZIE FUENTES on 01/18/21 ([id number])
--- NOTE | 2021-01-22 11:19 | PN ---
DATE OF SERVICE: 01/16/2021 SUBJECTIVE: 85 year old white male hospitalized with acute pneumonitis, shortness of breath and leg edema. The patient has a history of severe chronic lung disease on home oxygen. Also has long history of smoking cigarettes and cigars, quite a few years ago. REVIEW OF SYSTEMS: CONSTITUTIONAL: No night sweats. No fatigue, malaise, lethargy. No fever or chills. Feeling better. HEENT: Eyes: No visual changes. No eye pain. No eye discharge. ENT: No runny nose. No epistaxis. No sinus pain. No sore throat. No odynophagia. No congestion. RESPIRATORY: No cough, no congestion. No hemoptysis. No shortness of breath. CARDIOVASCULAR: No angina symptoms. No CHF symptoms. No atypical chest pain for CAD. No palpitations. No PND. No orthopnea. GASTROINTESTINAL: No abdominal pain. No nausea or vomiting. No diarrhea or constipation. No hematemesis. No hematochezia. GENITOURINARY: No urgency. No frequency. No dysuria. No hematuria. No obstructive symptoms. No discharge. No pain. No significant abnormal bleeding. MUSCULOSKELETAL: No musculoskeletal pain; no joint swelling. NEUROLOGICAL: No headache. No neck pain. No syncope. No seizures. No dizziness. PSYCHIATRIC: Not anxious. No depression. No suicidal thoughts. No homicidal thoughts. SKIN: No rash. No lesions. No wounds. ENDOCRINE: No unexplained weight loss. No weight gain. HEMATOLOGIC/LYMPHATIC: No anemia. No purpura. No petechiae. No prolonged or excessive bleeding. No palpable lymph nodes. PHYSICAL EXAMINATION: VITAL SIGNS: Temperature 97.6, pulse 80, respiratory rate 19, blood pressure 112/70 and pulse ox 97% on 2 liters. HEENT: Head normocephalic, atraumatic. Eyes: Extraocular muscles are intact. Pupils are equal, round and reactive to light and accommodation. Ears: No lesions. Nose appeared normal. Throat: No exudate or erythema. NECK: Supple. No JVD, no carotid bruit. No lymphadenopathy or thyromegaly. LUNGS: Decreased breath sounds but clear to auscultation. Percussion note normal. Chest symmetrical. HEART: S1, S2, no S3. No murmurs. No cyanosis or clubbing. No ascites. Pulses: Dorsalis pedis and posterior tibial pulses +1 to +2 bilaterally. ABDOMEN: Soft. Nontender. Bowel sounds active. No CVA tenderness. No mass felt. EXTREMITIES: No edema. Full range of motion of all extremities, equal. NEUROLOGIC: No focal deficit. Cranial nerves II through XII are grossly intact. No headache. No double vision. SKIN: Not dry. Intact. Turgor - normal. LYMPHATIC: No palpable lymph nodes/no lymphedema. MUSCULOSKELETAL: Normal joints with no swelling. Muscle tone is normal. LABS: Hgb 13.7, hct 42, WBC 14,000 normal differential, creatinine 0.9, BUN 23, potassium 4. Glucose 173. CT scan of the chest showed mass on the left atypical area measuring nearly 3.5cm in greatest diameter. ASSESSMENT: 1. Acute pneumonitis/bronchitis 2. Severe chronic lung disease 3. Left atypical mass 4. History of smoking 5. Congestive heart failure with leg edema. PLAN: 1. Continue antibiotics, steroids and NEBS 2. The patient was explained about the findings on CT scan. The patient was advised to have referral to pulmonary physician to which the patient agreed. TIME SPENT: More than 30 minutes. Plan and coordination of the patient's care discussed in the presence of nurse. KENTRELL
--- NOTE | 2021-01-22 11:26 | PN ---
DATE OF SERVICE: 01/17/21 SUBJECTIVE: The patient was seen and examined with the Nurse Practitioner. The patient's condition is stable. Respiratory status stable. Edema is less than before. Atypical tumor. Prognosis is poor. He is being referred to pulmonary physician TIME SPENT: More than 30 minutes. Plan and coordination of the patient's care discussed in the presence of nurse. KENTRELL
== END 2021-01-18 14:10 | disposition home or self-care (01) | DRG 197 ==
LOC: LAB 11:26 → MEDSURG A 13:00
PROVIDERS: ADMIT Internal Medicine; ATTEND Internal Medicine

== ENCOUNTER 2021-05-06 11:41 | Inpatient (IN) ==
[2021-05-06 12:59] LABS: BORDETELLA PARAPERTUSSIS (PCR) NOT DETECTED (NOT DETECT); BORDETELLA PERTUSSIS (PCR) NOT DETECTED (NOT DETECT); CHLAMYDIA PNEUMONIAE (PCR) NOT DETECTED (NOT DETECT); CORONAVIRUS 229E (PCR) NOT DETECTED (NOT DETECT); CORONAVIRUS HKU1 (PCR) NOT DETECTED (NOT DETECT); CORONAVIRUS NL63 (PCR) NOT DETECTED (NOT DETECT); CORONAVIRUS OC43 (PCR) NOT DETECTED (NOT DETECT); HUMAN METAPNEUMOVIRUS (PCR) NOT DETECTED (NOT DETECT); HUMAN RHINOVIRUS/ENTEROV (PCR) NOT DETECTED (NOT DETECT); INFLUENZA B (PCR) NOT DETECTED (NOT DETECT); MYCOPLASMA PNEUMONIAE (PCR) NOT DETECTED (NOT DETECT); PARAINFLUENZA VIRUS 1 (PCR) NOT DETECTED (NOT DETECT); PARAINFLUENZA VIRUS 2 (PCR) NOT DETECTED (NOT DETECT); PARAINFLUENZA VIRUS 3 (PCR) NOT DETECTED (NOT DETECT); PARAINFLUENZA VIRUS 4 (PCR) NOT DETECTED (NOT DETECT); RESPIRATORY SYNCYTIAL V (PCR) NOT DETECTED (NOT DETECT); SARS_COV_2 (PCR) NOT DETECTED (NOT DETECT)
--- NOTE | 2021-05-06 13:31 | ED.PDOC ---
General ED Provider: Dr. KENAN OJEDA MD Chief Complaint: Wound Check Stated Complaint: right leg wound Time Seen by Provider: 05/06/21 12:15 Mode of Arrival: Walk-In Information Source: Patient and Family Exam Limitations: No limitations Primary Care Provider: MACKENZIE FUENTES Nursing and Triage Documentation Reviewed and Agree: Yes Does patient meet sepsis criteria?: No System Inflammatory Response Syndrome: Not Applicable Sepsis Protocol: For patient's 13 years and over: Temp is 96.8 and below OR 101 and greater Pulse >90 BPM Resp >20/minute Acutely Altered Mental Status Are patient's symptoms suggestive of a new infection, such as: -Pneumonia -Skin, Soft Tissue -Endocarditis -UTI -Bone, Joint Infection -Implantable Device -Acute Abdominal Infection -Wound Infection -Meningitis -Blood Stream Catheter Infection -Unknown Skin Complaint Exam Skin/Soft Tissue Complaint/Exam Onset/Duration: 6 week history of nonhealing right lower extremity wound Symptoms Are: Worse Timing: Constant Initial Severity: Mild Current Severity: Severe Character: Reports Redness and Swelling Aggravating: Reports None Alleviating: Reports None Associated Signs and Symptoms: Reports Drainage and Tenderness Related Surgical History: Reports None Recent Exposure to Others w/Similar Symptoms: Yes Skin Findings: Present Dry scaly skin and Other (3cm deep ulcer lower right extremity) Joint Tenderness Present: Yes Review of Systems Review Of Systems Constitutional: Reports No symptoms Eyes: Reports No symptoms Ears, Nose, Mouth, Throat: Reports No symptoms Respiratory: Reports Short of air Cardiac: Reports Edema GI: Reports No symptoms : Reports No symptoms Musculoskeletal: Reports No symptoms Skin: Reports Other (right leg ulcer-) Neurological: Reports No symptoms Endocrine: Reports No symptoms Hematologic/Lymphatic: Reports No symptoms All Other Systems: Reviewed and Negative [facility] Medical History (Updated 05/06/21 @ 13:31 by KENAN OJEDA MD) B12 deficiency BPH (benign prostatic hyperplasia) CHF (congestive heart failure) Chronic bronchitis with COPD (chronic obstructive pulmonary disease) CKD (chronic kidney disease) COPD (chronic obstructive pulmonary disease) COR (chronic cor pulmonale) Diabetes mellitus type 2 in obese Dyslipidemia Edema of both legs Essential (primary) hypertension Gout HTN (hypertension) Hypothyroidism Insomnia Obesity Skin cancer Family History Other No known health problems Social History (Updated 01/15/21 @ 13:48 by EUNICE RICHARDSON RN) Smoking and tobacco status: Former smoker Physical Exam Physical Exam Appearance: Reports Ill-appearing (chronically ill appearing) and Obese Ill-appearing: Mild Pain Distress: None Eyes: Reports NATHAN, EOMI and Conjunctiva clear ENT: Reports Ears normal, Nose normal and Oropharynx normal Neck: Supple Respiratory: Reports Airway patent, Breath sounds clear and Breath sounds equal Cardiovascular: Reports RRR, No rub, No murmur and Not Examined (marked pitting edema bilateral lower extremities to the knees) GI/: Reports Soft, Nontender, No masses, Bowel sounds normal and No Organomegaly Musculoskeletal: Reports Normal strength, ROM intact and Other (3cm in diameter, deep ulcer lower right extremity with some necrotic debris present) Skin: Reports Warm and Dry Neurological: Reports Sensation intact (decreased peripheral sensation), Motor intact, Cranial nerves intact, Alert and Oriented Psychiatric: Reports Affect appropriate and Mood appropriate Physician Notification Case Discussed Physician Notified: Dr Fuentes Comments: patient discussed with Dr Fuentes and patient to be admitted to the hospital for diuresis and wound care/antibiotics Critical Care Note Critical Care Note Total Critical Care Time (mins): 0 Course Course Orders, Labs, Meds: Lab Review 05/06/21 12:53 Miscellaneous Test Orders Category Date Time Status MISCELLANEOUS SEND OUT Stat LAB 05/06/21 12:53 Completed Vital Signs: Temp Pulse Resp BP Pulse Ox 05/06/21 11:42 97.5 F L 74 14 114/72 93 L Discharge Plan Discharge Patient Disposition: ADMITTED INPATIENT Discharge Problem: Traumatic leg ulcer, Acute exacerbation of CHF (congestive heart failure) Prescriptions: No Action ipratropium-albuterol 3 ML solution for nebulization 3 ml inhalation QID 0RF allopurinol 100 MG tablet 200 mg PO DAILY 0RF Spironolactone 25 MG Tablet 25 mg PO DAILY Qty: 30 0RF Budesonide [Pulmicort 1 Mg/2 Ml] 1 VIAL Vial.Neb 1 vial NEB BEDTIME 0RF Rx Instructions: TAKE ONE VIAL PER NEBULIZER EVERY NIGHT AT BEDTIME pravastatin 40 MG tablet 40 mg PO BEDTIME Qty: 90 0RF carvedilol 3.125 MG tablet 3.125 mg PO BIDWM Qty: 180 0RF levothyroxine 100 MCG tablet 100 mcg PO QDAC 0RF furosemide [Lasix] 20 MG tablet 40 mg PO QDAC 0RF metformin 500 mg Tablet 500 mg PO BID 0RF tamsulosin 0.4 MG capsule 0.4 mg PO DAILY 0RF prednisone 5 mg tablet 5 mg PO DAILY 0RF escitalopram oxalate 5 mg tablet 5 mg PO DAILY 0RF ED Provider: KENAN OJEDA Condition: Stable Physician Progress Note: []
[2021-05-06 13:50] LABS: ADENOVIRUS (PCR) NOT DETECTED (NOT DETECT)
--- NOTE | 2021-05-06 13:56 | PCM ---
Chief Complaint Chief Complaint: nonhealing wound right leg History of Present Illness History of Present Illness: Nonhealing wound right lower extremity for 6 weeks. Onset after trauma. Review of Systems Constitutional: Reports No symptoms Eyes: Reports No symptoms Ears: Reports No symptoms Nose: Reports No symptoms Throat: Reports No symptoms Mouth: Reports No symptoms Respiratory: Reports Shortness of air Cardiovascular: Reports Edema Gastrointestinal: Reports No symptoms Genitourinary: Reports No symptoms Neurological: Reports Numbness Musculoskeletal: Reports No symptoms Skin: Reports Other (nonhealing ulcer right leg) Immunology: Reports No symptoms Hematology: Reports No symptoms Endocrine: Reports No symptoms Psychiatric: Reports Depression Allergies Allergies Allergy/AdvReac Type Severity Reaction Status Date / Time No Known Allergies Allergy Verified 05/06/21 11:50 COUNT INCLUDES THE [facility] Medical History (Updated 05/06/21 @ 13:55 by KENAN OJEDA MD) Acute exacerbation of CHF (congestive heart failure) B12 deficiency BPH (benign prostatic hyperplasia) CHF (congestive heart failure) Chronic bronchitis with COPD (chronic obstructive pulmonary disease) CKD (chronic kidney disease) COPD (chronic obstructive pulmonary disease) COR (chronic cor pulmonale) Diabetes mellitus type 2 in obese Dyslipidemia Edema of both legs Essential (primary) hypertension Gout HTN (hypertension) Hypothyroidism Insomnia Obesity Skin cancer Family History Other No known health problems Social History Smoking and tobacco status: Former smoker Medications Medications: Medications Generic Name Dose Route Start Last Admin Trade Name Freq PRN Reason Stop Dose Admin Albuterol/Ipratropium 3 ml 05/06/21 18:00 Ipratropium/Albuterol Vial.Neb NEB RTQ6H ANA M Allopurinol 200 mg 05/07/21 09:00 Allopurinol 100 Mg Tablet PO DAILY ANA M Carvedilol 3.125 mg 05/06/21 17:00 Carvedilol 3.125 Mg Tablet PO BIDWM ANA M Furosemide 60 mg 05/06/21 14:00 Furosemide Inj 100 Mg/10 Ml Vial IVP BID ANA M CEFTRIAXONE/D5W 2 GM PREMIX 2 gm in 50 mls @ 75 mls/hr 05/06/21 14:00 Rocephin 2 Gm/50 Ml D5w IV 05/09/21 13:59 DAILY ANA M Levothyroxine Sodium 100 mcg 05/07/21 06:30 Levothyroxine Sodium 100 Mcg Tablet PO QDAC [facility] Metformin HCl 500 mg 05/06/21 21:00 Metformin Hcl 500 Mg Tablet PO BID ANA M Non-Formulary Medication 5 mg 05/07/21 09:00 Escitalopram Oxalate PO DAILY ANA M Non-Formulary Medication 1 vial 05/06/21 21:00 Budesonide [Pulmicort 1 Mg/2 Ml] NEB BEDTIME ANA M Non-Formulary Medication 25 mg 05/07/21 09:00 Spironolactone PO DAILY [facility] Pravastatin Sodium 40 mg 05/06/21 21:00 Pravastatin Sodium 40 Mg Tablet PO BEDTIME ANA M Prednisone 5 mg 05/07/21 09:00 Prednisone 5 Mg Tablet PO DAILY [facility] Tamsulosin HCl 0.4 mg 05/07/21 09:00 Tamsulosin Hcl 0.4 Mg Cap.Er.24h PO DAILY [facility] Body Composition Height: 6 ft Weight: 97.522 kg Body Mass Index (BMI): 29.1 Vital Signs Temperature: 97.5 F Pulse Rate: 74 Respiratory Rate: 14 Blood Pressure: 114/72 O2 Sat by Pulse Oximetry: 93 Physical Examination Appearance: Reports Ill-appearing (chronically ill appearing), No pain distress and Obese Ill-appearing: Mild Pain Distress: None Eyes: Reports NATHAN, EOMI and Conjunctiva clear ENT: Reports Ears normal, Nose normal and Oropharynx normal Neck: Supple Respiratory: Reports Airway patent, Breath sounds clear and Breath sounds equal Cardiovascular: Reports RRR, No rub, No murmur and Other (marked edema bilaterally to the knees) GI/: Reports Soft, Nontender, No masses and Bowel sounds normal Musculoskeletal: Reports Normal strength and ROM intact Skin: Reports Other (3cm in diameter deep ulcer right lower extremity with some necrotic debris present, no drainage, mild surrounding erythema) Neurological: Reports Motor intact, Cranial nerves intact, Alert, Oriented and Other (decreased peripheral sensation) Psychiatric: Reports Affect appropriate and Mood appropriate Lab/Tests/Diagnostic Imaging Lab/Tests/Diagnostic Imaging: Lab Review 05/06/21 12:53 Miscellaneous Test Orders Category Date Time Status ADMIT PATIENT INPATIENT .TO [facility] (NON-MONITORED ADMISSION 05/06/21 13:31 Ordered BED) ACTIVITY .Up ad Mercedes CARE 05/06/21 13:31 Ordered BLOOD GLUCOSE MONITORING (MED/SURG) 0630,1100,1700,2100 CARE 05/06/21 13:40 Ordered CASE MANAGEMENT CONSULT ONCE CARE 05/06/21 13:33 Ordered GIVE HS SNACK 2100 CARE 05/06/21 13:35 Ordered INCISION/WOUND CARE ONCE CARE 05/06/21 13:31 Ordered INTAKE & OUTPUT Q8HR CARE 05/06/21 13:32 Ordered IP: INSERT SALINE LOCK ONCE CARE 05/06/21 13:32 Ordered VITAL SIGNS Q4HR CARE 05/06/21 13:33 Ordered VITAL SIGNS Q8HR CARE 05/06/21 13:32 Ordered ADA 1800 ELIS. DIET DIETARY 05/06/21 Dinner Ordered HS SNACK DIETARY 05/06/21 Dinner Ordered CBC W/ AUTO DIFF Stat LAB 05/06/21 13:31 Ordered CMP [COMPREHENSIVE METABOLIC PANEL] Stat LAB 05/06/21 13:31 Ordered CULTURE WOUND [WOUND CULTURE] Routine LAB 05/06/21 13:37 Uncollected MISCELLANEOUS SEND OUT Stat LAB 05/06/21 12:53 Completed PRO-BNP [NT-PROBNP] Stat LAB 05/06/21 Ordered 2 gm IV Daily Ana M MEDS 05/06/21 14:00 Ordered Ceftriaxone/D5w 2 gm Premix [Rocephin 2 gm/50 ml D5w] 2 gm in 50 ml IV DAILY Allopurinol [Zyloprim] MEDS 05/07/21 09:00 Ordered 200 mg PO DAILY Budesonide [Pulmicort 1 Mg/2 Ml] MEDS 05/06/21 21:00 Ordered 1 vial NEB BEDTIME Carvedilol [Coreg] MEDS 05/06/21 17:00 Ordered 3.125 mg PO BIDWM Furosemide [Lasix] MEDS 05/06/21 14:00 Ordered 60 mg IVP BID Ipratropium/Albuterol Neb [Duoneb] MEDS 05/06/21 18:00 Ordered 3 ml NEB RTQ6H Levothyroxine Sodium [Synthroid] MEDS 05/07/21 06:30 Ordered 100 mcg PO QDAC Metformin HCl [Glucophage] MEDS 05/06/21 21:00 Ordered 500 mg PO BID Pravastatin Sodium [Pravachol] MEDS 05/06/21 21:00 Ordered 40 mg PO BEDTIME Prednisone MEDS 05/07/21 09:00 Ordered 5 mg PO DAILY Spironolactone MEDS 05/07/21 09:00 Ordered 25 mg PO DAILY Tamsulosin HCl [Flomax] MEDS 05/07/21 09:00 Ordered 0.4 mg PO DAILY escitalopram oxalate MEDS 05/07/21 09:00 Ordered 5 mg PO DAILY RESUSCITATION STATUS Routine OTHERS 05/06/21 13:31 Ordered Medications Generic Name Dose Route Start Last Admin Trade Name Anny PRN Reason Stop Dose Admin Albuterol/Ipratropium 3 ml 05/06/21 18:00 Ipratropium/Albuterol Vial.[facility] NEB RTQ6H [facility] Allopurinol 200 mg 05/07/21 09:00 Allopurinol 100 Mg Tablet PO DAILY [facility] Carvedilol 3.125 mg 05/06/21 17:00 Carvedilol 3.125 Mg Tablet PO BIDWM [facility] Furosemide 60 mg 05/06/21 14:00 Furosemide Inj 100 Mg/10 Ml Vial IVP BID ANA M CEFTRIAXONE/D5W 2 GM PREMIX 2 gm in 50 mls @ 75 mls/hr 05/06/21 14:00 Rocephin 2 Gm/50 Ml D5w IV 05/09/21 13:59 DAILY [facility] Levothyroxine Sodium 100 mcg 05/07/21 06:30 Levothyroxine Sodium 100 Mcg Tablet PO QDAC [facility] Metformin HCl 500 mg 05/06/21 21:00 Metformin Hcl 500 Mg Tablet PO BID [facility] Non-Formulary Medication 5 mg 05/07/21 09:00 Escitalopram Oxalate PO DAILY [facility] Non-Formulary Medication 1 vial 05/06/21 21:00 Budesonide [Pulmicort 1 Mg/2 Ml] NEB BEDTIME [facility] Non-Formulary Medication 25 mg 05/07/21 09:00 Spironolactone PO DAILY [facility] Pravastatin Sodium 40 mg 05/06/21 21:00 Pravastatin Sodium 40 Mg Tablet PO BEDTIME ANA M Prednisone 5 mg 05/07/21 09:00 Prednisone 5 Mg Tablet PO DAILY [facility] Tamsulosin HCl 0.4 mg 05/07/21 09:00 Tamsulosin Hcl 0.4 Mg Cap.Er.24h PO DAILY [facility] Assessment (1) Edema of both legs: Status: Acute Code(s): R60.0 - Localized edema SNOMED Code(s): 320589128 (2) Traumatic leg ulcer: Status: Acute Code(s): L97.909 - Non-pressure chronic ulcer of unspecified part of unspecified lower leg with unspecified severity SNOMED Code(s): 647357590 (3) Acute exacerbation of CHF (congestive heart failure): Status: Acute Code(s): I50.9 - Heart failure, unspecified SNOMED Code(s): 198166362 Plan Plan: Admit patient for diuresis and wound care. Patient to receive IV Rocephin
[2021-05-06] MEDS ORDERED: LASIX IVP SCH ×2 (14:00→21:00)
[2021-05-06] MEDS ORDERED: ROCEPHIN 2 GM/50 ML D5W 2 GM/50 ML BAG IV SCH (14:00)
[2021-05-06 14:09] LABS: BASOPHILS % (AUTO) 0.3 % (0.0-3.0); EOSINOPHILS # (AUTO) 0.1 K/ul (0.0-0.7); EOSINOPHILS % (AUTO) 0.8 % (0.0-7.0); HEMATOCRIT 42.8 % (42.0-52.0); HEMOGLOBIN 13.5 g/dl (14.0-18.0); IMMATURE GRANULOCYTE % (AUTO) 0.2 % (0.0-5.0); LYMPHOCYTES # (AUTO) 1.3 K/uL (0.60-3.4); LYMPHOCYTES % (AUTO) 14.8 (10.0-50.0); MEAN CORPUSCULAR HEMOGLOBIN 32.2 pg (27.0-31.0); MEAN CORPUSCULAR HGB CONC 31.5 (31.8-35.4); MEAN CORPUSCULAR VOLUME 102.1 fl (80.0-94.0); MONOCYTES # (AUTO) 0.6 K/uL (0.4-2.0); MONOCYTES % (AUTO) 6.6 (0-10); NEUTROPHILS # (AUTO) 6.8 K/ul (2.0-6.9); NEUTROPHILS % (AUTO) 77.3 % (42.2-75.2); PLATELET COUNT 207 10^3/uL (140-440); RDW COEFFICIENT OF VARIATION 13.7 % (11.6-14.8); RED BLOOD COUNT 4.19 10^6/ul (4.70-6.10)
[2021-05-06] MEDS ORDERED: LASIX IVP STA (14:12)
[2021-05-06 14:22] LABS: ALANINE AMINOTRANSFERASE 23.6 U/L (0-50); ALBUMIN 4.43 g/dL (3.5-5.0); ALKALINE PHOSPHATASE 46.3 U/L (56-119); ASPARTATE AMINO TRANSFERASE 33.7 U/L (17-59); BILIRUBIN,TOTAL 1.25 mg/dL (0.2-1.3); BLOOD UREA NITROGEN 20.7 mg/dL (9-20); CALCIUM 8.73 mg/dL (8.4-10.2); CARBON DIOXIDE 34.7 mmol/L (22-30.0); CHLORIDE 101.5 mmol/L (98-107); CREATININE 0.87 mg/dL (0.60-1.10); GLUCOSE 120.7 mg/dL (74-106); POTASSIUM 4.66 mmol/L (3.5-5.1); SODIUM 140.4 mmol/L (134.5-145); TOTAL PROTEIN 7.32 g/dL (6.3-8.2)
[2021-05-06] MEDS ORDERED: TYLENOL PO PRN (14:27)
[2021-05-06] MEDS ORDERED: ATROPINE SULFATE PFS IVP PRN (14:27)
[2021-05-06] MEDS ORDERED: NITROSTAT SL PRN (14:27)
[2021-05-06 14:30] LABS: NT-PROBNP 87.3 pg/mL (0-300)
[2021-05-06 14:56] VITALS: BMI 29.9
[2021-05-06 15:28] LABS: BILIRUBIN,URINE Negative (NEGATIVE); CLARITY,URINE Clear (CLEAR); COLOR,URINE Yellow (YELLOW); GLUCOSE, URINE (UA) Negative (NEGATIVE); KETONES,URINE Negative (NEGATIVE); LEUKOCYTE ESTERASE ,URINE Negative (NEGATIVE); NITRITE,URINE Negative (NEGATIVE); PH,URINE 7.5 (5-9); PROTEIN,URINE Negative (NEGATIVE); URINE, BLOOD Negative (NEGATIVE); UROBILINOGEN,URINE 0.2 (0.2)
--- NOTE | 2021-05-06 16:25 | DI ---
EXAM: Single frontal view of the chest HISTORY: Congestive heart failure. COMPARISON: Chest x-ray 11/08/2019 FINDINGS: Cardiomediastinal silhouette is unremarkable. There is no pneumothorax or effusion. There is no consolidation, nodule or mass. There is degenerative disease of the spine. IMPRESSION: No acute cardiopulmonary process
[2021-05-06 16:36] LABS: ABG O2 HGB 95.4 % (95-100); ABG PH 7.41 (7.35-7.45); BEecf 10.9 (-2.0-3.0); COHb 1.8 (0.5-1.5); HCO3 35.5 (21-28); MetHb 0.9 (0-1.5); TCO2 37.2 (19-24); tHb 14.7 g/dl (11.7-17.4)
[2021-05-06] MEDS: CLEOCIN 600 MG/50 ML D5W 600 MG/50 ML BAG IV SCH ×2 (16:42→20:10)
[2021-05-06] MEDS: GLUCOPHAGE PO SCH (16:42)
[2021-05-06] MEDS: COREG PO SCH (16:43)
[2021-05-06] MEDS ORDERED: DUONEB NEB SCH (18:00)
[2021-05-06] MEDS: PULMICORT 1 MG/2 ML NEB SCH (19:45)
[2021-05-06] MEDS: DUONEB NEB SCH (19:45)
[2021-05-06] MEDS: PRAVACHOL PO SCH (20:10)
[2021-05-06] MEDS ORDERED: BUDESONIDE NEB SCH (21:00)
[2021-05-07] MEDS: CLEOCIN 600 MG/50 ML D5W 600 MG/50 ML BAG IV SCH ×3 (04:41→20:46)
[2021-05-07] MEDS: PULMICORT 1 MG/2 ML NEB SCH ×2 (04:55→20:10)
[2021-05-07] MEDS: DUONEB NEB SCH ×4 (04:55→20:10)
[2021-05-07 05:00] LABS: BASOPHILS % (AUTO) 0.4 % (0.0-3.0); EOSINOPHILS # (AUTO) 0.2 K/ul (0.0-0.7); HEMATOCRIT 42.6 % (42.0-52.0); HEMOGLOBIN 13.2 g/dl (14.0-18.0); IMMATURE GRANULOCYTE % (AUTO) 0.4 % (0.0-5.0); LYMPHOCYTES # (AUTO) 0.9 K/uL (0.60-3.4); MEAN CORPUSCULAR HEMOGLOBIN 31.7 pg (27.0-31.0); MEAN CORPUSCULAR VOLUME 102.4 fl (80.0-94.0); MONOCYTES # (AUTO) 0.7 K/uL (0.4-2.0); MONOCYTES % (AUTO) 8.3 (0-10); NEUTROPHILS # (AUTO) 6.4 K/ul (2.0-6.9); NEUTROPHILS % (AUTO) 77.9 % (42.2-75.2); PLATELET COUNT 197 10^3/uL (140-440); RDW COEFFICIENT OF VARIATION 13.6 % (11.6-14.8); RED BLOOD COUNT 4.16 10^6/ul (4.70-6.10); WHITE BLOOD COUNT 8.16 K/ul (4.2-10.2)
[2021-05-07 05:13] LABS: ALANINE AMINOTRANSFERASE 20.8 U/L (0-50); ALBUMIN 3.68 g/dL (3.5-5.0); ASPARTATE AMINO TRANSFERASE 25.2 U/L (17-59); BILIRUBIN,TOTAL 1.13 mg/dL (0.2-1.3); BLOOD UREA NITROGEN 19.2 mg/dL (9-20); CALCIUM 8.4 mg/dL (8.4-10.2); CARBON DIOXIDE 37.4 mmol/L (22-30.0); CHLORIDE 100.6 mmol/L (98-107); CREATININE 0.93 mg/dL (0.60-1.10); GLUCOSE 108.7 mg/dL (74-106); POTASSIUM 3.59 mmol/L (3.5-5.1); SODIUM 138.8 mmol/L (134.5-145); TOTAL PROTEIN 6.36 g/dL (6.3-8.2)
[2021-05-07] MEDS: SYNTHROID PO SCH (05:37)
[2021-05-07] MEDS: LASIX IVP SCH (05:37)
--- NOTE | 2021-05-07 08:47 | PCM.PROG ---
Attending Provider: ATTENDING PROVIDER: Dr. MACKENZIE FUENTES This patient is seen with Lizette Latham, Nurse Practitioner. DATE OF SERVICE: 05/07/21 SUBJECTIVE: This 85 year old /WHITE M was hospitalized 05/06/21. Resting comfortably. No fever. ABG were baseline. Does have improved leg edema. Redness right lower extremity about the same. REVIEW OF SYSTEMS: CONSTITUTIONAL: No night sweats. No fatigue, malaise, lethargy. No fever or chills. Weakness. HEENT: Eyes: No visual changes. No eye pain. No eye discharge. ENT: No runny nose. No epistaxis. No sinus pain. No odynophagia. No congestion. RESPIRATORY: No cough, no congestion. No hemoptysis. Shortness of breath. CARDIOVASCULAR: No angina symptoms. No CHF symptoms. No atypical chest pain for CAD. No palpitations. No orthopnea.. GASTROINTESTINAL: No abdominal pain. No nausea or vomiting. No diarrhea or constipation. No hematemesis. No hematochezia. GENITOURINARY: No urgency. No frequency. No dysuria. No hematuria. No obstructive symptoms. No discharge. No pain. No significant abnormal bleeding. MUSCULOSKELETAL: No musculoskeletal pain; no joint swelling. NEUROLOGICAL: Awake, alert, oriented to time, place and person. No headache. No neck pain. No syncope. No seizures. No dizziness. PSYCHIATRIC: Not anxious. No depression. No suicidal thoughts. No homicidal thoughts. SKIN: No rash. No lesions. Wound right lower extremity. ENDOCRINE: No unexplained weight loss. No weight gain. HEMATOLOGIC/LYMPHATIC: No anemia. No purpura. No petechiae. No prolonged or excessive bleeding. No palpable lymph nodes. PHYSICAL EXAMINATION: GENERAL: The patient is awake, alert and oriented, sitting in bed in no distress. VITAL SIGNS: Temperature 97.6 F, Pulse 68, Respiratory Rate 20, BP 101/60, Pulse Ox 97% HEENT: Head normocephalic, atraumatic. Eyes: Extraocular muscles are intact. Pupils are equal, round and reactive to light and accommodation. Ears: No lesions. Nose appeared normal. Throat: No exudate or erythema. NECK: Supple. No JVD, no carotid bruit. No lymphadenopathy or thyromegaly. LUNGS: Diminished breath sounds. Clear to auscultation. Percussion note normal. Chest symmetrical. HEART: S1, S2, no S3. No murmurs. No cyanosis or clubbing. No ascites. Pulses: Dorsalis pedis and posterior tibial pulses +1 to +2 both sides. ABDOMEN: Soft. Non-tender. Bowel sounds active. No CVA tenderness. No mass felt. EXTREMITIES: No edema. Full range of motion of all extremities, equal. NEUROLOGIC: No focal deficit. Cranial nerves II through XII are grossly intact. No headache. No double vision. SKIN: Not dry. Intact. Turgor-normal. Round approximately 1in diameter with tunneling. 1 outer half 2-3cm tunnelled. Bloody purulent drainage. Fowl odor. LYMPHATIC: No palpable lymph nodes/no lymphedema. MUSCULOSKELETAL: Normal joints with no swelling. Muscle tone is normal. LAB REVIEW: 05/07/21 04:48 05/07/21 04:48 05/07/21 04:48: Sodium 138.8, Potassium 3.59, Chloride 100.6, Carbon Dioxide 37.4 H, Anion Gap 4.39, BUN 19.2, Creatinine 0.93, Estimated GFR (MDRD) 77.00, BUN/Creatinine Ratio 20.64, Glucose 108.7 H, Calcium 8.40, Total Bilirubin 1.13, AST 25.2, ALT 20.8, Alkaline Phosphatase 50.0 L, Total Protein 6.36, Albumin 3.68, Globulin 2.68, Albumin/Globulin Ratio 1.37 05/07/21 04:48: WBC 8.16, RBC 4.16 L, Hgb 13.2 L, Hct 42.6, MCV 102.4 H, MCH 3 1.7 H, MCHC 31.0 L, RDW Coeff of Leonardo 13.6, Plt Count 197, Immature Gran % (Auto) 0.4, Neut % (Auto) 77.9 H, Lymph % (Auto) 11.0, [place] % (Auto) 8.3, Eos % (Auto) 2.0, Baso % (Auto) 0.4, Neut # (Auto) 6.4, Lymph # (Auto) 0.9, [place] # (Auto) 0.7, Eos # (Auto) 0.2, Baso # (Auto) 0.0, Immature Gran # (Auto) 0.0 05/06/21 16:25: Puncture Site Rr, Base Excess 10.9 H, O2 Saturation 97.0, ABG pH 7.41, ABG pCO2 56.0 H, ABG pO2 90.0, ABG HCO3 35.5 H, ABG Total CO2 37.2 H, Alfonzo Test Pos, Hemoglobin 0.9, Oxyhemoglobin 95.4, Carboxyhemoglobin 1.8 H, Total Hemoglobin 14.7, O2 Delivery Device Cannula, Oxygen Liter Flow 2.00 05/06/21 14:50: Urine Color Yellow, Urine Clarity Clear, Urine pH 7.5, Ur Specific [place] 1.020, Urine Protein Negative, Urine Glucose (UA) Negative, Urine Ketones Negative, Urine Blood Negative, Urine Nitrite Negative, Urine Bilirubin Negative, Urine Urobilinogen 0.2, Ur Leukocyte Esterase Negative 05/06/21 14:04: Sodium 140.4, Potassium 4.66, Chloride 101.5, Carbon Dioxide 34.7 H, Anion Gap 8.86, BUN 20.7 H, Creatinine 0.87, Estimated GFR (MDRD) 84.00, BUN/Creatinine Ratio 23.79, Glucose 120.7 H, Calcium 8.73, Total Bilirubin 1.25, AST 33.7, ALT 23.6, Alkaline Phosphatase 46.3 L, NT-Pro-B Natriuret Pep 87.300, Total Protein 7.32, Albumin 4.43, Globulin 2.89, Albumin/Globulin Ratio 1.53 05/06/21 14:04: WBC 8.80, RBC 4.19 L, Hgb 13.5 L, Hct 42.8, MCV 102.1 H, MCH 32.2 H, MCHC 31.5 L, RDW Coeff of Leonardo 13.7, Plt Count 207, Immature Gran % (Auto) 0.2, Neut % (Auto) 77.3 H, Lymph % (Auto) 14.8, [place] % (Auto) 6.6, Eos % (Auto) 0.8, Baso % (Auto) 0.3, Neut # (Auto) 6.8, Lymph # (Auto) 1.3, [place] # (Auto) 0.6, Eos # (Auto) 0.1, Baso # (Auto) 0.0, Immature Gran # (Auto) 0.0 05/06/21 12:53: Adenovirus (PCR) Not detected, B. pertussis DNA (PCR) Not detected, B.parapertussis DNA PCR Not detected, C. pneumoniae DNA (PCR) Not detected, Coronavirus OC43 (PCR) Not detected, Coronavirus HKU1 (PCR) Not detected, Coronavirus 229E (PCR) Not detected, Coronavirus NL63 (PCR) Not detected, Human Metapneumovir PCR Not detected, Influenza Type A (PCR) Not detected, Influenza B (RT-PCR) Not detected, M. pneumoniae (PCR) Not detected, Parainfluenza 1 (PCR) Not detected, Parainfluenza 2 (PCR) Not detected, Parainfluenza 3 (PCR) Not detected, Parainfluenza 4 (PCR) Not detected, RSV (PCR) Not detected, Entero/Rhino (PCR) Not detected, SARS-CoV-2 (PCR) Not detected 05/06/21 12:53: Miscellaneous Test ASSESSMENT: Please see below. 1. Right lower extremity cellulitis with infected wound 2. Dependent leg edema 3. COPD 4. Diabetes mellitus type II PLAN: 1. Will pack with medicated gauze, wet to dry dressing. 2. Continue Clindamycin 3. May contsul pharmacy on additional antibiotics. Plan and coordination of the patient's care discussed in the presence of Door Liner and nurse. SCRIBED BY: Mauro REDDY scribed while in presence of service performed by Dr. Fuentes/Lizette Latham APRN on 05/07/21 ([id number])
[2021-05-07] MEDS ORDERED: LEXAPRO PO SCH (09:00)
[2021-05-07] MEDS ORDERED: SPIRONOLACTONE 25 MG PO SCH (09:00)
[2021-05-07] MEDS ORDERED: NON-FORMULARY MEDICATION (Escitalopram Oxalate 5 mg tablet) PO SCH (09:00)
[2021-05-07] MEDS: PREDNISONE PO SCH (09:13)
[2021-05-07] MEDS: ROCEPHIN 1 GM/50 ML D5W 1 GM/50 ML BAG IV SCH (09:13)
[2021-05-07] MEDS: COREG PO SCH ×2 (09:14→17:13)
[2021-05-07] MEDS: ALDACTONE PO SCH (09:14)
[2021-05-07] MEDS: FLOMAX PO SCH (09:14)
[2021-05-07] MEDS: ZYLOPRIM PO SCH (09:14)
[2021-05-07] MEDS: GLUCOPHAGE PO SCH ×2 (09:14→17:13)
[2021-05-07] MEDS ORDERED: LEXAPRO PO ONE (09:25)
--- NOTE | 2021-05-07 12:16 | US ---
EXAM: ULTRASOUND LOWER EXTREMITY VENOUS DOPPLER EXAM HISTORY: Lower extremity edema. FINDINGS: Bilateral lower extremity venous Doppler exam. Real time fregoso-scale, Doppler spectral benitez lysis and color-flow Doppler imaging performed. The veins targeted for evaluation include the common femoral, greater saphenous, profundus, femoral, popliteal, peroneal, anterior tibial and posterior t ibial. The evaluated veins demonstrated normal spontaneous flow and compression without evidence o f thrombosis. IMPRESSION: No venous thrombosis identified within the areas evaluated.
[2021-05-07] MEDS: VITAMIN B-12 IM SCH (17:12)
[2021-05-07] MEDS: PRAVACHOL PO SCH (20:45)
[2021-05-08] MEDS: DUONEB NEB SCH ×4 (04:50→19:50)
[2021-05-08 05:43] LABS: BASOPHILS % (AUTO) 0.4 % (0.0-3.0); EOSINOPHILS # (AUTO) 0.2 K/ul (0.0-0.7); EOSINOPHILS % (AUTO) 2.1 % (0.0-7.0); HEMATOCRIT 42.1 % (42.0-52.0); HEMOGLOBIN 13.2 g/dl (14.0-18.0); IMMATURE GRANULOCYTE % (AUTO) 0.4 % (0.0-5.0); LYMPHOCYTES # (AUTO) 1.4 K/uL (0.60-3.4); LYMPHOCYTES % (AUTO) 18.6 (10.0-50.0); MEAN CORPUSCULAR HEMOGLOBIN 31.7 pg (27.0-31.0); MEAN CORPUSCULAR HGB CONC 31.4 (31.8-35.4); MONOCYTES # (AUTO) 0.8 K/uL (0.4-2.0); MONOCYTES % (AUTO) 10.6 (0-10); NEUTROPHILS # (AUTO) 5.1 K/ul (2.0-6.9); NEUTROPHILS % (AUTO) 67.9 % (42.2-75.2); PLATELET COUNT 197 10^3/uL (140-440); RDW COEFFICIENT OF VARIATION 13.7 % (11.6-14.8); RED BLOOD COUNT 4.17 10^6/ul (4.70-6.10); WHITE BLOOD COUNT 7.48 K/ul (4.2-10.2)
[2021-05-08] MEDS: LASIX IVP SCH (05:43)
[2021-05-08] MEDS: CLEOCIN 600 MG/50 ML D5W 600 MG/50 ML BAG IV SCH ×2 (05:54→14:47)
[2021-05-08] MEDS: SYNTHROID PO SCH (05:54)
[2021-05-08 05:58] LABS: ALANINE AMINOTRANSFERASE 20.9 U/L (0-50); ALBUMIN 3.87 g/dL (3.5-5.0); ALKALINE PHOSPHATASE 52.2 U/L (56-119); ASPARTATE AMINO TRANSFERASE 26.3 U/L (17-59); BILIRUBIN,TOTAL 0.89 mg/dL (0.2-1.3); BLOOD UREA NITROGEN 22.3 mg/dL (9-20); CALCIUM 8.66 mg/dL (8.4-10.2); CARBON DIOXIDE 36.3 mmol/L (22-30.0); CHLORIDE 97.7 mmol/L (98-107); CREATININE 0.9 mg/dL (0.60-1.10); GLUCOSE 103.2 mg/dL (74-106); POTASSIUM 3.74 mmol/L (3.5-5.1); SODIUM 136.4 mmol/L (134.5-145); TOTAL PROTEIN 6.5 g/dL (6.3-8.2)
[2021-05-08] MEDS: PREDNISONE PO SCH (08:33)
[2021-05-08] MEDS: COREG PO SCH ×2 (08:33→17:13)
[2021-05-08] MEDS: FLOMAX PO SCH (08:33)
[2021-05-08] MEDS: GLUCOPHAGE PO SCH ×2 (08:34→17:13)
[2021-05-08] MEDS: ROCEPHIN 1 GM/50 ML D5W 1 GM/50 ML BAG IV SCH (08:34)
[2021-05-08] MEDS: VITAMIN B-12 IM SCH (08:34)
[2021-05-08] MEDS: ALDACTONE PO SCH (08:34)
[2021-05-08] MEDS: ZYLOPRIM PO SCH (08:34)
[2021-05-08] MEDS: LEXAPRO PO SCH (08:34)
--- NOTE | 2021-05-08 09:53 | PN ---
DATE OF SERVICE: 05/06/21 SUBJECTIVE: The patient was seen and examined in the emergency room today. He has right leg ulcer medially. The lower 1/3 middle 1/3 junction it is oblong, 2in by 1.5in. The patient has +2 to +3 pitting edema on legs. Ulcer seems to be mildly infected with some drainage but this could be edema fluid coming out. According to the patient he got hurt about 4 weeks. The patient is living by himself with help with step son which he comes and goes. The patient is mildly short of breath. No evidence of Cor Pulmonale with possibility of CHF. He is going to be hospitalized with IV Lasix to be given 40mg QAM, Elevate the legs. ABG to be done. Chest x-ray, telemetry. Continue the rest of the home medications. The patient's problem is noncompliance on medications. In the past he had refused to go to the halfway. The patient is going to be on antibiotics Clindamycin and Rocephin. Cultures have been done from the drainage. TIME SPENT: More than 30 minutes. Plan and coordination of the patient's care discussed in the presence of nurse. KENTRELL
[2021-05-08] MEDS: SODIUM CHLORIDE IV SCH ×3 (15:03→23:53)
[2021-05-08] MEDS: AMPICILLIN SODIUM IV SCH ×3 (15:03→23:53)
[2021-05-08] MEDS: PULMICORT 1 MG/2 ML NEB SCH (19:50)
[2021-05-08] MEDS: PRAVACHOL PO SCH (21:05)
[2021-05-09] MEDS: DUONEB NEB SCH ×4 (04:40→19:40)
[2021-05-09] MEDS: LASIX IVP SCH (05:35)
[2021-05-09] MEDS: SYNTHROID PO SCH (05:57)
[2021-05-09 06:05] LABS: BASOPHILS % (AUTO) 0.5 % (0.0-3.0); EOSINOPHILS # (AUTO) 0.2 K/ul (0.0-0.7); EOSINOPHILS % (AUTO) 2.2 % (0.0-7.0); HEMATOCRIT 39.7 % (42.0-52.0); HEMOGLOBIN 12.7 g/dl (14.0-18.0); IMMATURE GRANULOCYTE % (AUTO) 0.3 % (0.0-5.0); LYMPHOCYTES # (AUTO) 1.6 K/uL (0.60-3.4); LYMPHOCYTES % (AUTO) 21.1 (10.0-50.0); MEAN CORPUSCULAR HEMOGLOBIN 32.4 pg (27.0-31.0); MEAN CORPUSCULAR VOLUME 101.3 fl (80.0-94.0); MONOCYTES # (AUTO) 0.8 K/uL (0.4-2.0); NEUTROPHILS # (AUTO) 5.1 K/ul (2.0-6.9); NEUTROPHILS % (AUTO) 65.9 % (42.2-75.2); PLATELET COUNT 193 10^3/uL (140-440); RDW COEFFICIENT OF VARIATION 13.6 % (11.6-14.8); RED BLOOD COUNT 3.92 10^6/ul (4.70-6.10); WHITE BLOOD COUNT 7.79 K/ul (4.2-10.2)
[2021-05-09] MEDS: AMPICILLIN SODIUM IV SCH ×4 (06:06→23:31)
[2021-05-09] MEDS: SODIUM CHLORIDE IV SCH ×4 (06:06→23:31)
[2021-05-09 06:25] LABS: ALANINE AMINOTRANSFERASE 20.1 U/L (0-50); ALBUMIN 3.77 g/dL (3.5-5.0); ALKALINE PHOSPHATASE 48.2 U/L (56-119); BILIRUBIN,TOTAL 0.68 mg/dL (0.2-1.3); BLOOD UREA NITROGEN 22.7 mg/dL (9-20); CALCIUM 8.58 mg/dL (8.4-10.2); CARBON DIOXIDE 36.1 mmol/L (22-30.0); CHLORIDE 97.9 mmol/L (98-107); CREATININE 0.99 mg/dL (0.60-1.10); GLUCOSE 98.7 mg/dL (74-106); POTASSIUM 3.98 mmol/L (3.5-5.1); SODIUM 134.8 mmol/L (134.5-145); TOTAL PROTEIN 6.38 g/dL (6.3-8.2)
--- NOTE | 2021-05-09 09:13 | PCM.PROG ---
Attending Provider: ATTENDING PROVIDER: Dr. MACKENZIE RAMIREZ This patient is seen with Lizette Latham, Nurse Practitioner. DATE OF SERVICE: 05/09/21 SUBJECTIVE: This 86 year old /WHITE M was hospitalized 05/06/21. Tolerating Ampicillin, changed per wound culture positive for Enterococcus. Right lower extremity has improved. Drainage seems to be improving. Dr. Ruiz did come on consult recommendations not changed. REVIEW OF SYSTEMS: CONSTITUTIONAL: No night sweats. No fatigue, malaise, lethargy. No fever or chills. HEENT: Eyes: No visual changes. No eye pain. No eye discharge. ENT: No runny nose. No epistaxis. No sinus pain. No odynophagia. No congestion. RESPIRATORY: No cough, no congestion. No hemoptysis. No shortness of breath. CARDIOVASCULAR: No angina symptoms. No CHF symptoms. No atypical chest pain for CAD. No palpitations. No orthopnea.. GASTROINTESTINAL: No abdominal pain. No nausea or vomiting. No diarrhea or constipation. No hematemesis. No hematochezia. GENITOURINARY: No urgency. No frequency. No dysuria. No hematuria. No obstructive symptoms. No discharge. No pain. No significant abnormal bleeding. MUSCULOSKELETAL: No musculoskeletal pain; no joint swelling. NEUROLOGICAL: Awake, alert, oriented to time, place and person. No headache. No neck pain. No syncope. No seizures. No dizziness. PSYCHIATRIC: Not anxious. No depression. No suicidal thoughts. No homicidal thoughts. SKIN: No rash. No lesions. Leg edema. Right lower extremity wound ENDOCRINE: No unexplained weight loss. No weight gain. HEMATOLOGIC/LYMPHATIC: No anemia. No purpura. No petechiae. No prolonged or excessive bleeding. No palpable lymph nodes. PHYSICAL EXAMINATION: GENERAL: The patient is awake, alert and oriented, sitting in bed in no d istress. VITAL SIGNS: Temperature 97.5 F, Pulse 79, Respiratory Rate 20, BP 114/79, Pulse Ox 97% HEENT: Head normocephalic, atraumatic. Eyes: Extraocular muscles are intact. Pupils are equal, round and reactive to light and accommodation. Ears: No lesions. Nose appeared normal. Throat: No exudate or erythema. NECK: Supple. No JVD, no carotid bruit. No lymphadenopathy or thyromegaly. LUNGS: Diminished breath sounds. Clear to auscultation. Percussion note normal. Chest symmetrical. HEART: S1, S2, no S3. No murmurs. No cyanosis or clubbing. No ascites. Pulses: Dorsalis pedis and posterior tibial pulses +1 to +2 both sides. ABDOMEN: Soft. Non-tender. Bowel sounds active. No CVA tenderness. No mass felt. EXTREMITIES: Edema improved. Full range of motion of all extremities, equal. NEUROLOGIC: No focal deficit. Cranial nerves II through XII are grossly intact. No headache. No double vision. SKIN: Not dry. Intact. Turgor-normal. Size of wound unchanged with under mining. Erythema improved. LYMPHATIC: No palpable lymph nodes/no lymphedema. MUSCULOSKELETAL: Normal joints with no swelling. Muscle tone is normal. LAB REVIEW: 05/09/21 05:55 05/09/21 05:55 05/09/21 05:55: Sodium 134.8, Potassium 3.98, Chloride 97.9 L, Carbon Dioxide 36.1 H, Anion Gap 4.78, BUN 22.7 H, Creatinine 0.99, Estimated GFR (MDRD) 72.00, BUN/Creatinine Ratio 22.92, Glucose 98.7, Calcium 8.58, Total Bilirubin 0.68, AST 26.0, ALT 20.1, Alkaline Phosphatase 48.2 L, Total Protein 6.38, Albumin 3.77, Globulin 2.61, Albumin/Globulin Ratio 1.44 05/09/21 05:55: WBC 7.79, RBC 3.92 L, Hgb 12.7 L, Hct 39.7 L, MCV 101.3 H, MCH 32.4 H, MCHC 32.0, RDW Coeff of Leonardo 13.6, Plt Count 193, Immature Gran % (Auto) 0.3, Neut % (Auto) 65.9, Lymph % (Auto) 21.1, [place] % (Auto) 10.0, Eos % (Auto) 2.2, Baso % (Auto) 0.5, Neut # (Auto) 5.1, Lymph # (Auto) 1.6, [place] # (Auto) 0.8, Eos # (Auto) 0.2, Baso # (Auto) 0.0, Immature Gran # (Auto) 0.0 ASSESSMENT: Please see below. 1. Right lower extremity wound, positive Enterococcus 2. Right lower extremity cellulitis 3. Chronic leg edema 4. COPD PLAN: 1. Continue IV Ampicillin 2. Dry gauze dressing change 2-3 times a day 3. Keep legs elevated Plan and coordination of the patient's care discussed in the presence of Solar Pv Installer and nurse. SCRIBED BY: Humberto REDDYist scribed while in presence of service performed by Dr. Ramirez/Lizette Latham APRN on 05/09/21 ([id number])
[2021-05-09] MEDS: ZYLOPRIM PO SCH (09:46)
[2021-05-09] MEDS: FLOMAX PO SCH (09:47)
[2021-05-09] MEDS: LEXAPRO PO SCH (09:47)
[2021-05-09] MEDS: COREG PO SCH ×2 (09:47→16:49)
[2021-05-09] MEDS: K-DUR PO SCH (09:48)
[2021-05-09] MEDS: GLUCOPHAGE PO SCH ×2 (09:48→16:49)
[2021-05-09] MEDS: ALDACTONE PO SCH (09:48)
[2021-05-09] MEDS: VITAMIN B-12 IM SCH (09:49)
[2021-05-09] MEDS: PREDNISONE PO SCH (09:49)
--- NOTE | 2021-05-09 11:08 | PN ---
DATE OF SERVICE: 05/08/21 SUBJECTIVE: 85 year old white male hospitalized with congestive heart failure, bilateral leg edema and also leg wound which is on the right leg. The patient's feeling a lot better. Appetite has improved. His wound was seen by Dr. Ruiz certified surgical technologist. It was debrided. REVIEW OF SYSTEMS: CONSTITUTIONAL: No night sweats. No fatigue, malaise, lethargy. No fever or chills. HEENT: Eyes: No visual changes. No eye pain. No eye discharge. ENT: No runny nose. No epistaxis. No sinus pain. No sore throat. No odynophagia. No congestion. RESPIRATORY: No cough, no congestion. No hemoptysis. No shortness of breath. CARDIOVASCULAR: No angina symptoms. No CHF symptoms. No atypical chest pain for CAD. No palpitations. No PND. No orthopnea. GASTROINTESTINAL: No abdominal pain. No nausea or vomiting. No diarrhea or constipation. No hematemesis. No hematochezia. GENITOURINARY: No urgency. No frequency. No dysuria. No hematuria. No obstructive symptoms. No discharge. No pain. No significant abnormal bleeding. MUSCULOSKELETAL: No musculoskeletal pain; no joint swelling. NEUROLOGICAL: No headache. No neck pain. No syncope. No seizures. No dizziness. PSYCHIATRIC: Not anxious. No depression. No suicidal thoughts. No homicidal thoughts. SKIN: No rash. No lesions. No wounds. ENDOCRINE: No unexplained weight loss. No weight gain. HEMATOLOGIC/LYMPHATIC: No anemia. No purpura. No petechiae. No prolonged or excessive bleeding. No palpable lymph nodes. PHYSICAL EXAMINATION: VITAL SIGNS: Temperature 97.8, pulse 70, respiratory rate 20, blood pressure 102/60 and pulse ox 96% on 2 liters. HEENT: Head normocephalic, atraumatic. Eyes: Extraocular muscles are intact. Pupils are equal, round and reactive to light and accommodation. Ears: No lesions. Nose appeared normal. Throat: No exudate or erythema. NECK: Supple. No JVD, no carotid bruit. No lymphadenopathy or thyromegaly. LUNGS: Decreased breath sounds but clear to auscultation. Percussion note normal. Chest symmetrical. HEART: S1, S2, no S3. No murmurs. No cyanosis or clubbing. No ascites. Pulses: Dorsalis pedis and posterior tibial pulses +1 to +2 bilaterally. ABDOMEN: Soft. Nontender. Bowel sounds active. No CVA tenderness. No mass felt. EXTREMITIES: +2 pitting edema a little less than what it was on admission. Full range of motion of all extremities, equal. NEUROLOGIC: No focal deficit. Cranial nerves II through XII are grossly intact. No headache. No double vision. SKIN: Not dry. Intact. Turgor - normal. LYMPHATIC: No palpable lymph nodes/no lymphedema. MUSCULOSKELETAL: Normal joints with no swelling. Muscle tone is normal. LABS: Hgb 13.2, hct 42, WBC 7,400 normal differential, creatinine 0.9, BUN 22, potassium 3.7 ASSESSMENT: 1. CHF seems to be under control 2. Leg wound with infection PLAN: 1. We will start Ampicillin 2. Continue Lasix and Aldactone CONDITION: Improving. TIME SPENT: More than 30 minutes. Plan and coordination of the patient's care discussed in the presence of nurse. KENTRELL
[2021-05-09] MEDS: PULMICORT 1 MG/2 ML NEB SCH (19:40)
[2021-05-09] MEDS: PRAVACHOL PO SCH (20:15)
[2021-05-10] MEDS: DUONEB NEB SCH ×4 (04:39→19:25)
[2021-05-10] MEDS: SODIUM CHLORIDE IV SCH ×4 (05:18→23:25)
[2021-05-10] MEDS: AMPICILLIN SODIUM IV SCH ×4 (05:18→23:25)
[2021-05-10 05:24] LABS: BASOPHILS % (AUTO) 0.6 % (0.0-3.0); EOSINOPHILS # (AUTO) 0.2 K/ul (0.0-0.7); EOSINOPHILS % (AUTO) 2.4 % (0.0-7.0); HEMATOCRIT 41.6 % (42.0-52.0); HEMOGLOBIN 13.2 g/dl (14.0-18.0); IMMATURE GRANULOCYTE % (AUTO) 0.1 % (0.0-5.0); LYMPHOCYTES # (AUTO) 1.5 K/uL (0.60-3.4); LYMPHOCYTES % (AUTO) 21.2 (10.0-50.0); MEAN CORPUSCULAR HGB CONC 31.7 (31.8-35.4); MONOCYTES # (AUTO) 0.6 K/uL (0.4-2.0); MONOCYTES % (AUTO) 8.5 (0-10); NEUTROPHILS # (AUTO) 4.8 K/ul (2.0-6.9); NEUTROPHILS % (AUTO) 67.2 % (42.2-75.2); PLATELET COUNT 202 10^3/uL (140-440); RDW COEFFICIENT OF VARIATION 13.6 % (11.6-14.8); RED BLOOD COUNT 4.12 10^6/ul (4.70-6.10); WHITE BLOOD COUNT 7.09 K/ul (4.2-10.2)
[2021-05-10 05:36] LABS: ALANINE AMINOTRANSFERASE 22.8 U/L (0-50); ALBUMIN 4.08 g/dL (3.5-5.0); ASPARTATE AMINO TRANSFERASE 27.6 U/L (17-59); BILIRUBIN,TOTAL 0.94 mg/dL (0.2-1.3); BLOOD UREA NITROGEN 20.7 mg/dL (9-20); CALCIUM 8.69 mg/dL (8.4-10.2); CARBON DIOXIDE 32.6 mmol/L (22-30.0); CHLORIDE 97.9 mmol/L (98-107); CREATININE 0.95 mg/dL (0.60-1.10); GLUCOSE 101.4 mg/dL (74-106); POTASSIUM 3.81 mmol/L (3.5-5.1); TOTAL PROTEIN 6.86 g/dL (6.3-8.2)
[2021-05-10] MEDS: SYNTHROID PO SCH (05:44)
[2021-05-10] MEDS: LASIX TAB PO SCH (05:44)
[2021-05-10] MEDS: ALDACTONE PO SCH (09:38)
[2021-05-10] MEDS: PREDNISONE PO SCH (09:38)
[2021-05-10] MEDS: FLOMAX PO SCH (09:38)
[2021-05-10] MEDS: GLUCOPHAGE PO SCH ×2 (09:38→17:35)
[2021-05-10] MEDS: K-DUR PO SCH (09:38)
[2021-05-10] MEDS: COREG PO SCH ×2 (09:38→17:35)
[2021-05-10] MEDS: LEXAPRO PO SCH (09:39)
[2021-05-10] MEDS: ZYLOPRIM PO SCH (09:39)
[2021-05-10] MEDS: VITAMIN B-12 IM SCH (09:39)
--- NOTE | 2021-05-10 12:39 | PN ---
DATE OF SERVICE: 05/10/21 SUBJECTIVE: 86 year old white male hospitalized with CHF and leg wound.The patient's leg wound is a lot better. The patient had his birthday yesterday. The patient is eating better. He is oriented time, place and person. REVIEW OF SYSTEMS: CONSTITUTIONAL: No night sweats. No fatigue, malaise, lethargy. No fever or chills. HEENT: Eyes: No visual changes. No eye pain. No eye discharge. ENT: No runny nose. No epistaxis. No sinus pain. No sore throat. No odynophagia. No congestion. RESPIRATORY: No cough, no congestion. No hemoptysis. No shortness of breath. CARDIOVASCULAR: No angina symptoms. No CHF symptoms. No atypical chest pain for CAD. No palpitations. No PND. No orthopnea. GASTROINTESTINAL: No abdominal pain. No nausea or vomiting. No diarrhea or constipation. No hematemesis. No hematochezia. GENITOURINARY: No urgency. No frequency. No dysuria. No hematuria. No obstructive symptoms. No discharge. No pain. No significant abnormal bleeding. MUSCULOSKELETAL: No musculoskeletal pain; no joint swelling. NEUROLOGICAL: No headache. No neck pain. No syncope. No seizures. No dizziness. PSYCHIATRIC: Not anxious. No depression. No suicidal thoughts. No homicidal thoughts. SKIN: No rash. No lesions. No wounds. ENDOCRINE: No unexplained weight loss. No weight gain. HEMATOLOGIC/LYMPHATIC: No anemia. No purpura. No petechiae. No prolonged or excessive bleeding. No palpable lymph nodes. PHYSICAL EXAMINATION: VITAL SIGNS: Temperature 97.2, pulse 76, respiratory rate 24, blood pressure 100/54 and pulse ox 94%. HEENT: Head normocephalic, atraumatic. Eyes: Extraocular muscles are intact. Pupils are equal, round and reactive to light and accommodation. Ears: No lesions. Nose appeared normal. Throat: No exudate or erythema. NECK: Supple. No JVD, no carotid bruit. No lymphadenopathy or thyromegaly. LUNGS: Decreased breath sounds but clear to auscultation. Percussion note normal. Chest symmetrical. HEART: S1, S2, no S3. No murmurs. No cyanosis or clubbing. No ascites. Pulses: Dorsalis pedis and posterior tibial pulses +1 to +2 bilaterally. ABDOMEN: Soft. Nontender. Bowel sounds active. No CVA tenderness. No mass felt. EXTREMITIES: 2+ edema. Full range of motion of all extremities, equal. NEUROLOGIC: No focal deficit. Cranial nerves II through XII are grossly intact. No headache. No double vision. SKIN: Not dry. Intact. Turgor - normal. Ulcer looks better, less drainage and surrounding inflammation. LYMPHATIC: No palpable lymph nodes/no lymphedema. MUSCULOSKELETAL: Normal joints with no swelling. Muscle tone is normal. LABS: hgb 13.2, hct 41, WBC 7,000 normal differential, creatinine 0.9, BUN 20, potassium 3.8. ASSESSMENT: 1. CHF seems to be under control. 2. Leg wound seems to be healing, Dr. Ruiz surgical consultation on the case. CONDITION: Improving. PLAN: 1. Continue antibiotics and Lasix 2. Leg elevation. TIME SPENT: More than 30 minutes. Plan and coordination of the patient's care discussed in the presence of nurse. KENTRELL
--- NOTE | 2021-05-10 13:08 | PN ---
DATE OF SERVICE: 05/09/21 SUBJECTIVE: The patient was seen and examined with the Nurse Practitioner. The patient's ulcer on the right foot seems to be a lot better. He was seen by professional employer consultant Dr. Ruiz. He has been on Ampicillin now. The culture is growing e- coli. Edema is less than when he came in on admission. The patient's problem who is going to take care of him when he is discharged home. 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 TIME SPENT: More than 30 minutes. Plan and coordination of the patient's care discussed in the presence of nurse. KENTRELL
[2021-05-10] MEDS: PULMICORT 1 MG/2 ML NEB SCH (19:25)
[2021-05-10] MEDS: PRAVACHOL PO SCH (20:24)
[2021-05-11] MEDS: DUONEB NEB SCH ×4 (04:55→19:35)
[2021-05-11 05:28] LABS: BASOPHILS # (AUTO) 0.1 K/uL (0-0.2); BASOPHILS % (AUTO) 0.8 % (0.0-3.0); EOSINOPHILS # (AUTO) 0.2 K/ul (0.0-0.7); EOSINOPHILS % (AUTO) 2.6 % (0.0-7.0); HEMATOCRIT 41.4 % (42.0-52.0); HEMOGLOBIN 13.1 g/dl (14.0-18.0); IMMATURE GRANULOCYTE % (AUTO) 0.3 % (0.0-5.0); LYMPHOCYTES # (AUTO) 1.4 K/uL (0.60-3.4); LYMPHOCYTES % (AUTO) 18.1 (10.0-50.0); MEAN CORPUSCULAR HGB CONC 31.6 (31.8-35.4); MONOCYTES # (AUTO) 0.7 K/uL (0.4-2.0); MONOCYTES % (AUTO) 9.4 (0-10); NEUTROPHILS # (AUTO) 5.3 K/ul (2.0-6.9); NEUTROPHILS % (AUTO) 68.8 % (42.2-75.2); PLATELET COUNT 212 10^3/uL (140-440); RDW COEFFICIENT OF VARIATION 13.5 % (11.6-14.8); WHITE BLOOD COUNT 7.73 K/ul (4.2-10.2)
[2021-05-11] MEDS: LASIX TAB PO SCH (05:39)
[2021-05-11] MEDS: SYNTHROID PO SCH (05:39)
[2021-05-11] MEDS: SODIUM CHLORIDE IV SCH ×5 (05:40→23:29)
[2021-05-11] MEDS: AMPICILLIN SODIUM IV SCH ×5 (05:40→23:29)
[2021-05-11 05:43] LABS: ALANINE AMINOTRANSFERASE 22.8 U/L (0-50); ALBUMIN 4.1 g/dL (3.5-5.0); ALKALINE PHOSPHATASE 49.5 U/L (56-119); BILIRUBIN,TOTAL 0.84 mg/dL (0.2-1.3); BLOOD UREA NITROGEN 22.3 mg/dL (9-20); CALCIUM 8.84 mg/dL (8.4-10.2); CARBON DIOXIDE 28.6 mmol/L (22-30.0); CHLORIDE 100.5 mmol/L (98-107); CREATININE 0.91 mg/dL (0.60-1.10); GLUCOSE 108.1 mg/dL (74-106); POTASSIUM 4.11 mmol/L (3.5-5.1); SODIUM 136.1 mmol/L (134.5-145); TOTAL PROTEIN 6.74 g/dL (6.3-8.2)
[2021-05-11] MEDS: ZYLOPRIM PO SCH (08:45)
[2021-05-11] MEDS: LEXAPRO PO SCH (08:45)
[2021-05-11] MEDS: K-DUR PO SCH (08:45)
[2021-05-11] MEDS: FLOMAX PO SCH (08:45)
[2021-05-11] MEDS: COREG PO SCH ×2 (08:45→17:35)
[2021-05-11] MEDS: PREDNISONE PO SCH (08:45)
[2021-05-11] MEDS: ALDACTONE PO SCH (08:45)
[2021-05-11] MEDS: GLUCOPHAGE PO SCH ×2 (08:45→17:35)
[2021-05-11] MEDS: VITAMIN B-12 IM SCH (08:46)
[2021-05-11] MEDS ORDERED: LEXAPRO PO ONE (10:30)
[2021-05-11] MEDS: PULMICORT 1 MG/2 ML NEB SCH (19:35)
[2021-05-11] MEDS: ATIVAN PO SCH (20:33)
[2021-05-11] MEDS: PRAVACHOL PO SCH (20:33)
[2021-05-12] MEDS: DUONEB NEB SCH ×4 (04:50→19:15)
[2021-05-12 05:20] LABS: BASOPHILS # (AUTO) 0.1 K/uL (0-0.2); BASOPHILS % (AUTO) 0.6 % (0.0-3.0); EOSINOPHILS # (AUTO) 0.2 K/ul (0.0-0.7); EOSINOPHILS % (AUTO) 2.2 % (0.0-7.0); HEMATOCRIT 38.3 % (42.0-52.0); IMMATURE GRANULOCYTE % (AUTO) 0.2 % (0.0-5.0); LYMPHOCYTES # (AUTO) 1.4 K/uL (0.60-3.4); LYMPHOCYTES % (AUTO) 16.6 (10.0-50.0); MEAN CORPUSCULAR HEMOGLOBIN 31.7 pg (27.0-31.0); MEAN CORPUSCULAR HGB CONC 31.3 (31.8-35.4); MEAN CORPUSCULAR VOLUME 101.3 fl (80.0-94.0); MONOCYTES # (AUTO) 0.8 K/uL (0.4-2.0); MONOCYTES % (AUTO) 9.5 (0-10); NEUTROPHILS # (AUTO) 5.8 K/ul (2.0-6.9); NEUTROPHILS % (AUTO) 70.9 % (42.2-75.2); PLATELET COUNT 205 10^3/uL (140-440); RDW COEFFICIENT OF VARIATION 13.5 % (11.6-14.8); RED BLOOD COUNT 3.78 10^6/ul (4.70-6.10); WHITE BLOOD COUNT 8.18 K/ul (4.2-10.2)
[2021-05-12 05:34] LABS: ALANINE AMINOTRANSFERASE 22.3 U/L (0-50); ALBUMIN 3.8 g/dL (3.5-5.0); ASPARTATE AMINO TRANSFERASE 27.1 U/L (17-59); BILIRUBIN,TOTAL 0.61 mg/dL (0.2-1.3); BLOOD UREA NITROGEN 24.2 mg/dL (9-20); CALCIUM 8.59 mg/dL (8.4-10.2); CARBON DIOXIDE 32.5 mmol/L (22-30.0); CHLORIDE 98.9 mmol/L (98-107); CREATININE 0.99 mg/dL (0.60-1.10); GLUCOSE 103.3 mg/dL (74-106); POTASSIUM 3.99 mmol/L (3.5-5.1); SODIUM 137.1 mmol/L (134.5-145); TOTAL PROTEIN 6.27 g/dL (6.3-8.2)
[2021-05-12] MEDS: LASIX TAB PO SCH (05:50)
[2021-05-12] MEDS: SYNTHROID PO SCH (05:50)
[2021-05-12] MEDS: AMPICILLIN SODIUM IV SCH ×4 (05:53→23:10)
[2021-05-12] MEDS: SODIUM CHLORIDE IV SCH ×4 (05:53→23:10)
[2021-05-12] MEDS: ZYLOPRIM PO SCH (08:58)
[2021-05-12] MEDS: GLUCOPHAGE PO SCH ×2 (08:59→17:43)
[2021-05-12] MEDS: FLOMAX PO SCH (08:59)
[2021-05-12] MEDS: COREG PO SCH ×2 (08:59→17:43)
[2021-05-12] MEDS: LEXAPRO PO SCH (08:59)
[2021-05-12] MEDS: ALDACTONE PO SCH (08:59)
[2021-05-12] MEDS: K-DUR PO SCH (09:00)
[2021-05-12] MEDS: PREDNISONE PO SCH (09:00)
[2021-05-12] MEDS: VITAMIN B-12 IM SCH (09:00)
[2021-05-12] MEDS: ZINC-220 PO SCH (12:22)
[2021-05-12] MEDS: PULMICORT 1 MG/2 ML NEB SCH (19:15)
[2021-05-12] MEDS: PRAVACHOL PO SCH (20:32)
[2021-05-12] MEDS: ATIVAN PO SCH (20:32)
[2021-05-13] MEDS: DUONEB NEB SCH ×4 (04:45→19:10)
[2021-05-13] MEDS: SODIUM CHLORIDE IV SCH ×4 (05:12→23:19)
[2021-05-13] MEDS: AMPICILLIN SODIUM IV SCH ×4 (05:12→23:19)
[2021-05-13 05:28] LABS: BASOPHILS % (AUTO) 0.6 % (0.0-3.0); EOSINOPHILS # (AUTO) 0.2 K/ul (0.0-0.7); EOSINOPHILS % (AUTO) 2.6 % (0.0-7.0); HEMATOCRIT 38.8 % (42.0-52.0); HEMOGLOBIN 12.3 g/dl (14.0-18.0); IMMATURE GRANULOCYTE % (AUTO) 0.3 % (0.0-5.0); LYMPHOCYTES # (AUTO) 1.4 K/uL (0.60-3.4); LYMPHOCYTES % (AUTO) 18.8 (10.0-50.0); MEAN CORPUSCULAR HGB CONC 31.7 (31.8-35.4); MONOCYTES # (AUTO) 0.7 K/uL (0.4-2.0); MONOCYTES % (AUTO) 9.1 (0-10); NEUTROPHILS % (AUTO) 68.6 % (42.2-75.2); PLATELET COUNT 199 10^3/uL (140-440); RDW COEFFICIENT OF VARIATION 13.5 % (11.6-14.8); RED BLOOD COUNT 3.84 10^6/ul (4.70-6.10); WHITE BLOOD COUNT 7.24 K/ul (4.2-10.2)
[2021-05-13 05:42] LABS: ALANINE AMINOTRANSFERASE 23.5 U/L (0-50); ALBUMIN 3.95 g/dL (3.5-5.0); ASPARTATE AMINO TRANSFERASE 31.4 U/L (17-59); BILIRUBIN,TOTAL 0.61 mg/dL (0.2-1.3); BLOOD UREA NITROGEN 26.8 mg/dL (9-20); CALCIUM 8.89 mg/dL (8.4-10.2); CARBON DIOXIDE 31.5 mmol/L (22-30.0); CHLORIDE 99.3 mmol/L (98-107); CREATININE 0.99 mg/dL (0.60-1.10); GLUCOSE 102.5 mg/dL (74-106); POTASSIUM 4.08 mmol/L (3.5-5.1); SODIUM 136.5 mmol/L (134.5-145); TOTAL PROTEIN 6.51 g/dL (6.3-8.2)
[2021-05-13] MEDS: SYNTHROID PO SCH (05:46)
[2021-05-13] MEDS: LASIX TAB PO SCH (05:47)
--- NOTE | 2021-05-13 09:13 | PCM.PROG ---
Attending Provider: ATTENDING PROVIDER: Dr. MACKENZIE FUENTES This patient is seen with Lizette Latham, Nurse Practitioner. DATE OF SERVICE: 05/13/21 SUBJECTIVE: This 86 year old /WHITE M was hospitalized 05/06/21. The patient didn't sleep well last night due to people coming in and out. Ativan is helping. right lower extremity is slightly more red today. Wound is healing. New tissue on outer edge. REVIEW OF SYSTEMS: CONSTITUTIONAL: No night sweats. No fatigue, malaise, lethargy. No fever or chills. Weakness. HEENT: Eyes: No visual changes. No eye pain. No eye discharge. ENT: No runny nose. No epistaxis. No sinus pain. No odynophagia. No congestion. RESPIRATORY: No cough, no congestion. No hemoptysis. No shortness of breath. CARDIOVASCULAR: No angina symptoms. No CHF symptoms. No atypical chest pain for CAD. No palpitations. No orthopnea.. GASTROINTESTINAL: No abdominal pain. No nausea or vomiting. No diarrhea or constipation. No hematemesis. No hematochezia. GENITOURINARY: No urgency. No frequency. No dysuria. No hematuria. No obstructive symptoms. No discharge. No pain. No significant abnormal bleeding. MUSCULOSKELETAL: No musculoskeletal pain; no joint swelling. Leg edema. NEUROLOGICAL: Awake, alert, oriented to time, place and person. No headache. No neck pain. No syncope. No seizures. No dizziness. PSYCHIATRIC: Not anxious. No depression. No suicidal thoughts. No homicidal thoughts. SKIN: No rash. No lesions. Right lower extremity wound. ENDOCRINE: No unexplained weight loss. No weight gain. HEMATOLOGIC/LYMPHATIC: No anemia. No purpura. No petechiae. No prolonged or excessive bleeding. No palpable lymph nodes. PHYSICAL EXAMINATION: GENERAL: The patient is awake, alert and oriented, lying in bed in no distress. VITAL SIGNS: Temperature 97.0 F, Pulse 70, Respiratory Rate 18, BP 103/58, Pulse Ox 95% HEENT: Head normocephalic, atraumatic. Eyes: Extraocular muscles are intact. Pupils are equal, round and reactive to light and accommodation. Ears: No lesions. Nose appeared normal. Throat: No exudate or erythema. NECK: Supple. No JVD, no carotid bruit. No lymphadenopathy or thyromegaly. LUNGS: Diminished breath sounds. Clear to auscultation. Percussion note normal. Chest symmetrical. HEART: S1, S2, no S3. No murmurs. No cyanosis or clubbing. No ascites. Pulses: Dorsalis pedis and posterior tibial pulses +1 to +2 both sides. ABDOMEN: Soft. Non-tender. Bowel sounds active. No CVA tenderness. No mass felt. EXTREMITIES: +2 bilateral lower extremity edema. Full range of motion of all extremities, equal. NEUROLOGIC: No focal deficit. Cranial nerves II through XII are grossly intact. No headache. No double vision. SKIN: Not dry. Intact. Turgor-normal. 2x3 wound right lower extremity mild surrounding erythema. New granulation tissue noted, scant drainage. LYMPHATIC: No palpable lymph nodes/no lymphedema. MUSCULOSKELETAL: Normal joints with no swelling. Muscle tone is normal. LAB REVIEW: 05/13/21 05:15 05/13/21 05:15 05/13/21 05:15: Sodium 136.5, Potassium 4.08, Chloride 99.3, Carbon Dioxide 31.5 H, Anion Gap 9.78, BUN 26.8 H, Creatinine 0.99, Estimated GFR (MDRD) 72.00, BUN/Creatinine Ratio 27.07, Glucose 102.5, Calcium 8.89, Total Bilirubin 0.61, AST 31.4, ALT 23.5, Alkaline Phosphatase 52.0 L, Total Protein 6.51, Albumin 3.95, Globulin 2.56, Albumin/Globulin Ratio 1.54 05/13/21 05:15: WBC 7.24, RBC 3.84 L, Hgb 12.3 L, Hct 38.8 L, MCV 101.0 H, MCH 32.0 H, MCHC 31.7 L, RDW Coeff of Leonardo 13.5, Plt Count 199, Immature Gran % (Auto) 0.3, Neut % (Auto) 68.6, Lymph % (Auto) 18.8, [place] % (Auto) 9.1, Eos % (Auto) 2.6, Baso % (Auto) 0.6, Neut # (Auto) 5.0, Lymph # (Auto) 1.4, [place] # (Auto) 0.7, Eos # (Auto) 0.2, Baso # (Auto) 0.0, Immature Gran # (Auto) 0.0 ASSESSMENT: Please see below. 1. Right lower extremity wound with cellulitis 2. Chronic leg edema 3. End stage COPD 4. Chronic respiratory failure. PLAN: 1. Keep legs elevated 2. Wound culture 3. Blood cultures Plan and coordination of the patient's care discussed in the presence of Comprehensive Ophthalmologist and nurse. SCRIBED BY: Humberto REDDYist scribed while in presence of service performed by Dr. Fuentes/Lizette Latham APRN on 05/13/21 ([id number])
[2021-05-13] MEDS: FLOMAX PO SCH (09:33)
[2021-05-13] MEDS: COREG PO SCH ×2 (09:33→17:46)
[2021-05-13] MEDS: ALDACTONE PO SCH (09:33)
[2021-05-13] MEDS: GLUCOPHAGE PO SCH ×2 (09:34→17:46)
[2021-05-13] MEDS: PREDNISONE PO SCH (09:34)
[2021-05-13] MEDS: ZINC-220 PO SCH (09:34)
[2021-05-13] MEDS: K-DUR PO SCH (09:35)
[2021-05-13] MEDS: ZYLOPRIM PO SCH (09:35)
[2021-05-13] MEDS: LEXAPRO PO SCH (09:36)
[2021-05-13] MEDS: VITAMIN B-12 IM SCH (09:40)
[2021-05-13] MEDS: PULMICORT 1 MG/2 ML NEB SCH (19:10)
[2021-05-13] MEDS: PRAVACHOL PO SCH (20:24)
[2021-05-13] MEDS: ATIVAN PO SCH (20:24)
[2021-05-14] MEDS: DUONEB NEB SCH ×3 (04:50→14:08)
[2021-05-14 05:21] LABS: BASOPHILS % (AUTO) 0.6 % (0.0-3.0); EOSINOPHILS # (AUTO) 0.2 K/ul (0.0-0.7); EOSINOPHILS % (AUTO) 2.9 % (0.0-7.0); HEMATOCRIT 38.5 % (42.0-52.0); HEMOGLOBIN 12.1 g/dl (14.0-18.0); IMMATURE GRANULOCYTE % (AUTO) 0.4 % (0.0-5.0); LYMPHOCYTES # (AUTO) 1.2 K/uL (0.60-3.4); LYMPHOCYTES % (AUTO) 17.8 (10.0-50.0); MEAN CORPUSCULAR HEMOGLOBIN 31.8 pg (27.0-31.0); MEAN CORPUSCULAR HGB CONC 31.4 (31.8-35.4); MEAN CORPUSCULAR VOLUME 101.3 fl (80.0-94.0); MONOCYTES # (AUTO) 0.7 K/uL (0.4-2.0); MONOCYTES % (AUTO) 9.5 (0-10); NEUTROPHILS # (AUTO) 4.7 K/ul (2.0-6.9); NEUTROPHILS % (AUTO) 68.8 % (42.2-75.2); PLATELET COUNT 189 10^3/uL (140-440); RDW COEFFICIENT OF VARIATION 13.5 % (11.6-14.8); WHITE BLOOD COUNT 6.86 K/ul (4.2-10.2)
[2021-05-14 05:34] LABS: ALANINE AMINOTRANSFERASE 22.1 U/L (0-50); ALBUMIN 3.74 g/dL (3.5-5.0); ALKALINE PHOSPHATASE 45.4 U/L (56-119); ASPARTATE AMINO TRANSFERASE 28.6 U/L (17-59); BILIRUBIN,TOTAL 0.62 mg/dL (0.2-1.3); BLOOD UREA NITROGEN 25.5 mg/dL (9-20); CALCIUM 8.7 mg/dL (8.4-10.2); CARBON DIOXIDE 33.7 mmol/L (22-30.0); CHLORIDE 98.5 mmol/L (98-107); CREATININE 0.94 mg/dL (0.60-1.10); GLUCOSE 93.9 mg/dL (74-106); POTASSIUM 3.97 mmol/L (3.5-5.1); SODIUM 137.3 mmol/L (134.5-145); TOTAL PROTEIN 6.25 g/dL (6.3-8.2)
[2021-05-14] MEDS: SYNTHROID PO SCH (05:45)
[2021-05-14] MEDS: SODIUM CHLORIDE IV SCH ×2 (05:45→13:51)
[2021-05-14] MEDS: AMPICILLIN SODIUM IV SCH ×2 (05:45→13:51)
[2021-05-14] MEDS: LASIX TAB PO SCH (05:45)
[2021-05-14] MEDS: LEXAPRO PO SCH (08:27)
[2021-05-14] MEDS: ZYLOPRIM PO SCH (08:27)
[2021-05-14] MEDS: VITAMIN B-12 IM SCH (08:27)
[2021-05-14] MEDS: FLOMAX PO SCH (08:28)
[2021-05-14] MEDS: ALDACTONE PO SCH (08:28)
[2021-05-14] MEDS: ZINC-220 PO SCH (08:28)
[2021-05-14] MEDS: K-DUR PO SCH (08:28)
[2021-05-14] MEDS: PREDNISONE PO SCH (08:28)
[2021-05-14] MEDS: GLUCOPHAGE PO SCH (08:28)
[2021-05-14] MEDS: COREG PO SCH (08:28)
--- NOTE | 2021-05-14 08:58 | PCM.PROG ---
Attending Provider: ATTENDING PROVIDER: Dr. MACKENZIE RAMIREZ This patient is seen with Lizette Latham, Nurse Practitioner. DATE OF SERVICE: 05/14/21 SUBJECTIVE: This 86 year old /WHITE M was hospitalized 05/06/21. Swelling and erythema somewhat improved. Dr. Ruiz changed dressing treatment; wet sterile gauze, light wrap and keep legs elevated. REVIEW OF SYSTEMS: CONSTITUTIONAL: No night sweats. No fatigue, malaise, lethargy. No fever or chills. Weakness. HEENT: Eyes: No visual changes. No eye pain. No eye discharge. ENT: No runny nose. No epistaxis. No sinus pain. No odynophagia. No congestion. RESPIRATORY: No cough, no congestion. No hemoptysis. No shortness of breath. CARDIOVASCULAR: No angina symptoms. No CHF symptoms. No atypical chest pain for CAD. No palpitations. No orthopnea.. GASTROINTESTINAL: No abdominal pain. No nausea or vomiting. No diarrhea or constipation. No hematemesis. No hematochezia. GENITOURINARY: No urgency. No frequency. No dysuria. No hematuria. No obstructive symptoms. No discharge. No pain. No significant abnormal bleeding. MUSCULOSKELETAL: No musculoskeletal pain; no joint swelling. NEUROLOGICAL: Awake, alert, oriented to time, place and person. No headache. No neck pain. No syncope. No seizures. No dizziness. PSYCHIATRIC: Not anxious. No depression. No suicidal thoughts. No homicidal thoughts. SKIN: No rash. No lesions. Right lower extremity wound. ENDOCRINE: No unexplained weight loss. No weight gain. HEMATOLOGIC/LYMPHATIC: No anemia. No purpura. No petechiae. No prolonged or excessive bleeding. No palpable lymph nodes. PHYSICAL EXAMINATION: GENERAL: The patient is awake, alert and oriented, lying in bed in no distress. VITAL SIGNS: Temperature 97.8 F, Pulse 75, Respiratory Rate 20, BP 103/55, Pulse Ox 95% HEENT: Head normocephalic, atraumatic. Eyes: Extraocular muscles are intact. Pupils are equal, round and reactive to light and accommodation. Ears: No lesions. Nose appeared normal. Throat: No exudate or erythema. NECK: Supple. No JVD, no carotid bruit. No lymphadenopathy or thyromegaly. LUNGS: Diminished breath sounds. Clear to auscultation. Percussion note normal. Chest symmetrical. HEART: S1, S2, no S3. No murmurs. No cyanosis or clubbing. No ascites. Pulses: Dorsalis pedis and posterior tibial pulses +1 to +2 both sides. ABDOMEN: Soft. Non-tender. Bowel sounds active. No CVA tenderness. No mass felt. EXTREMITIES: Leg edema. Full range of motion of all extremities, equal. NEUROLOGIC: No focal deficit. Cranial nerves II through XII are grossly intact. No headache. No double vision. SKIN: Not dry. Intact. Turgor-normal. Granulation tissue noted to wound. Improved surrounding erythema. LYMPHATIC: No palpable lymph nodes/no lymphedema. MUSCULOSKELETAL: Normal joints with no swelling. Muscle tone is normal. LAB REVIEW: 05/14/21 05:08 05/14/21 05:08 05/14/21 05:08: Sodium 137.3, Potassium 3.97, Chloride 98.5, Carbon Dioxide 33.7 H, Anion Gap 9.07, BUN 25.5 H, Creatinine 0.94, Estimated GFR (MDRD) 76.00, BUN/Creatinine Ratio 27.12, Glucose 93.9, Calcium 8.70, Total Bilirubin 0.62, AST 28.6, ALT 22.1, Alkaline Phosphatase 45.4 L, Total Protein 6.25 L, Albumin 3.74, Globulin 2.51, Albumin/Globulin Ratio 1.49 05/14/21 05:08: WBC 6.86, RBC 3.80 L, Hgb 12.1 L, Hct 38.5 L, MCV 101.3 H, MCH 31.8 H, MCHC 31.4 L, RDW Coeff of Leonardo 13.5, Plt Count 189, Immature Gran % (Auto) 0.4, Neut % (Auto) 68.8, Lymph % (Auto) 17.8, [place] % (Auto) 9.5, Eos % (Auto) 2.9, Baso % (Auto) 0.6, Neut # (Auto) 4.7, Lymph # (Auto) 1.2, [place] # (Auto) 0.7, Eos # (Auto) 0.2, Baso # (Auto) 0.0, Immature Gran # (Auto) 0.0 ASSESSMENT: Please see below. 1. Right lower extremity wound 2. Leg edema PLAN: 1. Continue antibiotics 2. PT/OT consult 3. Keep legs elevated 4. Repeat would culture pending. Plan and coordination of the patient's care discussed in the presence of Plug Assembler and nurse. SCRIBED BY: Mauro REDDY scribed while in presence of service performed by Dr. Ramirez/Lizette Latham APRN on 05/14/21 ([id number])
--- NOTE | 2021-05-14 10:16 | PN ---
DATE OF SERVICE: 05/11/21 SUBJECTIVE: Dr. Riuz was in to see the patient yesterday. We are now just doing no packing, unmedicated sterile gauze, dry dressing. There is some granulation noted around the edged. Leg edema has improved. Cellulitis has improved, no fever. Eating well. Labs are stable. I do believe that the patient is still somewhat depressed. REVIEW OF SYSTEMS: CONSTITUTIONAL: No night sweats. No fatigue, malaise, lethargy. No fever or chills. Weakness. HEENT: Eyes: No visual changes. No eye pain. No eye discharge. ENT: No runny nose. No epistaxis. No sinus pain. No sore throat. No odynophagia. No congestion. RESPIRATORY: No cough, no congestion. No hemoptysis. Chronic shortness of breath. CARDIOVASCULAR: No angina symptoms. No CHF symptoms. No atypical chest pain for CAD. No palpitations. No PND. No orthopnea. GASTROINTESTINAL: No abdominal pain. No nausea or vomiting. No diarrhea or constipation. No hematemesis. No hematochezia. GENITOURINARY: No urgency. No frequency. No dysuria. No hematuria. No obstructive symptoms. No discharge. No pain. No significant abnormal bleeding. MUSCULOSKELETAL: No musculoskeletal pain; no joint swelling. Leg edema. NEUROLOGICAL: No headache. No neck pain. No syncope. No seizures. No dizziness. PSYCHIATRIC: Not anxious. No depression. No suicidal thoughts. No homicidal thoughts. SKIN: No rash. No lesions. Wound right lower extremity. ENDOCRINE: No unexplained weight loss. No weight gain. HEMATOLOGIC/LYMPHATIC: No anemia. No purpura. No petechiae. No prolonged or excessive bleeding. No palpable lymph nodes. PHYSICAL EXAMINATION: HEENT: Head normocephalic, atraumatic. Eyes: Extraocular muscles are intact. Pupils are equal, round and reactive to light and accommodation. Ears: No lesions. Nose appeared normal. Throat: No exudate or erythema. NECK: Supple. No JVD, no carotid bruit. No lymphadenopathy or thyromegaly. LUNGS: Diminished breath sounds. Clear to auscultation. Percussion note normal. Chest symmetrical. HEART: S1, S2, no S3. No murmurs. No cyanosis or clubbing. No ascites. Pulses: Dorsalis pedis and posterior tibial pulses +1 to +2 bilaterally. ABDOMEN: Soft. Nontender. Bowel sounds active. No CVA tenderness. No mass felt. EXTREMITIES: Improved leg edema at 2+. Full range of motion of all extremities, equal. NEUROLOGIC: No focal deficit. Cranial nerves II through XII are grossly intact. No headache. No double vision. SKIN: Not dry. Intact. Turgor - normal. 2x3cm wound right lower extremity with improved surrounding erythema. Noted new tissue forming around the edges undermining seems to be closing up. LYMPHATIC: No palpable lymph nodes/no lymphedema. MUSCULOSKELETAL: Normal joints with no swelling. Muscle tone is normal. ASSESSMENT: 1. Right lower extremity leg wound with cellulitis 2. Chronic leg edema 3. Endstage COPD oxygen dependent 4. Depression 5. Insomnia PLAN: 1. We will continue with dressings 2. Increase Lexapro to 15mg PO daily 3. The patient stated that he has been sleeping since he has been here. We will do 1mg Ativan PO at bedtime 4. keep legs elevated TIME SPENT: More than 30 minutes. Plan and coordination of the patient's care discussed in the presence of nurse. KENTERLL
--- NOTE | 2021-05-14 11:22 | PN ---
DATE OF SERVICE: 05/12/21 SUBJECTIVE: The patient states that he slept better last night with Ativan. Eating well and leg looks about the same. He has a visitor this morning. Labs are stable; hgb 12, hct 38, BUN 24, creatinine 0.99. REVIEW OF SYSTEMS: CONSTITUTIONAL: No night sweats. No fatigue, malaise, lethargy. No fever or chills. HEENT: Eyes: No visual changes. No eye pain. No eye discharge. ENT: No runny nose. No epistaxis. No sinus pain. No sore throat. No odynophagia. No congestion. RESPIRATORY: No cough, no congestion. No hemoptysis. Chronic shortness of breath. CARDIOVASCULAR: No angina symptoms. No CHF symptoms. No atypical chest pain for CAD. No palpitations. No PND. No orthopnea. GASTROINTESTINAL: No abdominal pain. No nausea or vomiting. No diarrhea or constipation. No hematemesis. No hematochezia. GENITOURINARY: No urgency. No frequency. No dysuria. No hematuria. No obstructive symptoms. No discharge. No pain. No significant abnormal bleeding. MUSCULOSKELETAL: No musculoskeletal pain; no joint swelling. Improved leg edema. NEUROLOGICAL: No headache. No neck pain. No syncope. No seizures. No dizziness. PSYCHIATRIC: Not anxious. No depression. No suicidal thoughts. No homicidal thoughts. SKIN: No rash. No lesions. Wound right lower extremity. ENDOCRINE: No unexplained weight loss. No weight gain. HEMATOLOGIC/LYMPHATIC: No anemia. No purpura. No petechiae. No prolonged or excessive bleeding. No palpable lymph nodes. PHYSICAL EXAMINATION: HEENT: Head normocephalic, atraumatic. Eyes: Extraocular muscles are intact. Pupils are equal, round and reactive to light and accommodation. Ears: No lesions. Nose appeared normal. Throat: No exudate or erythema. NECK: Supple. No JVD, no carotid bruit. No lymphadenopathy or thyromegaly. LUNGS: Diminished breath sounds. Clear to auscultation. Percussion note normal. Chest symmetrical. HEART: S1, S2, no S3. No murmurs. No cyanosis or clubbing. No ascites. Pulses: Dorsalis pedis and posterior tibial pulses +1 to +2 bilaterally. ABDOMEN: Soft. Nontender. Bowel sounds active. No CVA tenderness. No mass felt. EXTREMITIES: Still +2 edema which has improved, has wrinkling. Full range of motion of all extremities, equal. NEUROLOGIC: No focal deficit. Cranial nerves II through XII are grossly intact. No headache. No double vision. SKIN: Not dry. Intact. Turgor - normal. Wound unchanged from yesterday. LYMPHATIC: No palpable lymph nodes/no lymphedema. MUSCULOSKELETAL: Normal joints with no swelling. Muscle tone is normal. ASSESSMENT: 1. Right lower extremity leg wound with cellulitis which is improving 2. Endstage COPD 3. Depression 4. Chronic leg edema PLAN: 1. Continue IV Ampicillin 2. Culture was positive for enterococcus. 3. Will continue with dry dressing 4. Keep legs elevated 5. Will follow closely. TIME SPENT: More than 30 minutes. Plan and coordination of the patient's care discussed in the presence of nurse. KENTRELL
--- NOTE | 2021-05-14 12:10 | RS.PTINEVL ---
Subjective - Patient information Date of Evaluation: 05/14/21 Date of Arrival on Unit: 05/06/21 Usual Living Arrangement: Alone Medical History Comments:: CHF, BPH, CHF, COPD, CKD, COR, DM type 2, Dyslipidemia, HTN, gout, Hypothyroidism, Insomnia, Obesity Subjective Information/ Patient Comments:: Patient reports his legs do not feel too good. Agrees to get up with therapy. 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 He has help with housekeeping. - Level of function Prior to this admission, the patient could do the following:: Independent Selfcare, Independent Ambulation (pt amb short distances with rwx, pt states he sleeps in recliner) Current Equipment Used at Home: WALKER, SHOWER CHAIR, OXYGEN CONCETRATOR AND PORTABLE TANK ([employer]),BLOOD PRESSURE CUFF, GLUCOMETER Interventions - Objective Patient Orientation: Person, Place, Time Current Interventions: Oxygen, Telemetry Observation: Patient presents in bed with legs elevated and dressings in place. Range of Motion - ROM Comments:: LE ROM limited moderately due to swelling. Muscle Strength - Muscle Strength Comments:: LE strength is WFL's, at least 4/5. Balance - Sitting Balance and Reactions Static Sitting Balance: Good Dynamic Sitting Balance: Good - Standing Balance and Reactions Static Standing Balance: Good Dynamic Standing Balance: Good (-) Functional Mobility - Bed Mobility Rolling R/L: Independent Supine to Sit: Independent Comments:: Required no assistance or cues for bed mobility. - Transfers Sit to Stand: Independent, Supervision Stand to Sit: Independent, Supervision Stand Pivot Transfers: Independent, Supervision Comments:: Patient demonstrates transfers with no hands on assistance. Steady with mobility. - Safety Awareness Safety Awareness: Fair BOBY INDEX SCORE: NA Ambulation - Ambulation Weight Bearing Status: FWB Assistive Device Used: Rolling Walker Distance: 30 feet (limited by O2 tubing) Assistance needed with Ambulation: Supervision, CGA (for oxygen tubing) Quality of Ambulation: Demonstrate steady gait, with continuous steps. Gait Deviations: Forward posture, Short stride Ambulation Comments: Ambulation mainly affected by LE swelling and breathing. Factors Affecting Ambulation: Breathing/O2 Saturation, Decreased ROM (due to swelling) Treatment time - Time with patient Length of Evaluation: 10 mins Total treatment time: 10 Assessment - Assessment Further Therapy Indicated?: No Candidate for Swing Bed for Therapy Services?: NO Comments: Demonstrates to be at high level of function. He demonstrates steady mobility with transfers and ambulation. I do recommend that he get up 1-2 times a day for ambulation with nursing to maintain his level of function during this acute stay. Evaluation Complexity: HISTORY: High (Medical issues per history), EXAM OF BODY SYSTEMS: Low, CLINICAL PRESENTATION: Low, CLINICAL DECISION MAKING: Low Patient's Goal(s): His goal is to return home. Plan Frequency of Treatment: One time treatment Duration of Treatment: One Time Treatment Anticipated Discharge Destination: Home Treatment Diagnosis (ICD 10 Codes): NA Has the Physician been added for Co-signature?: Yes
[2021-05-14 13:20] VITALS: BP 103/58; TEMP 98.4
--- NOTE | 2021-05-15 08:22 | PN ---
DATE OF SERVICE: 05/12/21 SUBJECTIVE: The patient was seen and examined with the Nurse Practitioner. Right leg ulcer seems to be healing. The edema is much less than before. The patient has no help at home because caretaker grounds has gone out for a couple of months. It is going to be a problem for discharge. Overall other cardiovascular status is stable except for leg edema. We will evaluate his LV function by echo if it is not done in past 6 months. 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 TIME SPENT: More than 30 minutes. Plan and coordination of the patient's care discussed in the presence of nurse. KENTRELL
--- NOTE | 2021-05-15 08:26 | PN ---
DATE OF SERVICE: 05/13/21 SUBJECTIVE: The patient was seen and examined with the Nurse Practitioner. The patient's ulcer is healing ever so slowly. The ulcer is also managed by farm consultant Dr. Ruiz. Edema is less than on admission to both legs. No obvious CHF. TIME SPENT: More than 30 minutes. Plan and coordination of the patient's care discussed in the presence of nurse. KENTRELL
--- NOTE | 2021-05-29 13:13 | DS ---
DATE OF SERVICE: 05/14/21 FINAL DIAGNOSIS: 1. Right lower extremity infect wound with cellulitis, positive enterococcus. 2. Endstage COPD 3. Chronic lung edema 4. Chronic kidney disease stage II 5. Diabetes Mellitus 6. Obesity 7. Chronic respiratory failure DISCHARGE INSTRUCTIONS: Discharge to swing bed. MEDICATIONS AT DISCHARGE: Ipratropium albuterol 0.5-3mg 3ml inhalation QID Allopurinol 200mg PO daily Spironolactone 25mg PO daily Carvedilol 3.125mg PO BID Pravastatin 40mg PO Bedtime Pulmicort one vial NEB Bedtime Metformin 500mg PO BID Lasix 40mg PO QDAC Levothyroxine 100mcg PO QDAC Tamsulosin 0.4mg PO daily Prednisone 5mg PO daily Escitalopram oxalate 5mg PO daily DIET INSTRUCTIONS: As tolerated DISEASE SPECIFIC EDUCATION: Antibiotics Lower extremity wound Swing bed. HOSPITAL COURSE: This is an 86 year old white male who presented to the emergency room with wound on the right lower extremity. He said he had hit his leg on I believe the running board of the truck about 6 weeks ago and then hit it again about 2 weeks later and there is an open area that doesn't seem to be healing. He was admitted and wound appeared to be about 1.5in in diameter. It had about 2 cm of undermining on the inner aspect. Wound culture was done and was positive for Enterococcus initially sensitive to Ampicillin. He was started on Ampicillin 500mg IV. Dr. Ruiz was consulted for wound care and initially was started with wet to dry dressings and to keep his legs elevated and then transpired to just dry dressings. Initially we were packing the undermining and this has since resolved. It seems to be healing from the inside. There is no need to be packing. There is minimal drainage and improved erythema. He lives by himself. He is not willing to go to the snf. Due to his chronic leg edema and diabetes I do think that this is going to be slow to heal. He is agreeable to stay for IV antibiotics and then agreeable to Home Health. We will discharge him to swing bed with continuation of the IV Ampicillin. He is to continue to have his legs elevated. He has required IV Lasix a couple times while here. Leg edema seems to be improved. He is sitting with his legs elevated at all times. Respiratory status has remained stable and labs have remained stable. We will discharge him to swing bed with continuation of IV antibiotics for the infected right lower extremity wound and cellulitis. TIME SPENT: More than 60 minutes. ANDRESD
== END 2021-05-14 15:20 | disposition swing bed (61) | DRG 593 ==
LOC: ED 11:41 → MEDSURG A 14:08
PROVIDERS: ADMIT Internal Medicine; ATTEND Internal Medicine
DX: L03.115 Cellulitis of right lower limb; Z79.899 Other long term (current) drug therapy; Z51.81 Encounter for therapeutic drug level monitoring; R60.0 Localized edema; E66.9 Obesity, unspecified; I10 Essential (primary) hypertension; N18.2 Chronic kidney disease, stage 2 (mild); E03.9 Hypothyroidism, unspecified; I50.9 Heart failure, unspecified; E11.9 Type 2 diabetes mellitus without complications; Z99.81 Dependence on supplemental oxygen; R06.02 Shortness of breath; J96.10 Chronic respiratory failure, unspecified whether with hypoxia or hypercapnia; E78.5 Hyperlipidemia, unspecified; Z79.84 Long term (current) use of oral hypoglycemic drugs; J44.9 Chronic obstructive pulmonary disease, unspecified; Z20.822 Contact with and (suspected) exposure to COVID-19; I27.81 Cor pulmonale (chronic); L97.919 Non-pressure chronic ulcer of unspecified part of right lower leg with unspecified severity

== ENCOUNTER 2021-11-30 12:28 | Inpatient (IN) ==
[2021-11-30] MEDS ORDERED: DUONEB NEB STA (12:50)
--- NOTE | 2021-11-30 13:05 | DI ---
EXAM: Chest one-view HISTORY: Cough COMPARISON: 05/06/2021 FINDINGS: The lungs are clear. The cardiac silhouette is normal. Cardiac monitoring leads are pres ent. IMPRESSION: Negative chest. No active cardiopulmonary disease
[2021-11-30 13:10] LABS: BASOPHILS % (AUTO) 0.2 % (0.0-3.0); EOSINOPHILS % (AUTO) 0.5 % (0.0-7.0); HEMATOCRIT 41.8 % (42.0-52.0); IMMATURE GRANULOCYTE % (AUTO) 0.3 % (0.0-5.0); LYMPHOCYTES # (AUTO) 0.9 K/uL (0.60-3.4); LYMPHOCYTES % (AUTO) 14.8 (10.0-50.0); MEAN CORPUSCULAR HEMOGLOBIN 30.6 pg (27.0-31.0); MEAN CORPUSCULAR HGB CONC 31.1 (31.8-35.4); MEAN CORPUSCULAR VOLUME 98.4 fl (80.0-94.0); MONOCYTES # (AUTO) 0.7 K/uL (0.4-2.0); MONOCYTES % (AUTO) 11.3 (0-10); NEUTROPHILS # (AUTO) 4.3 K/ul (2.0-6.9); NEUTROPHILS % (AUTO) 72.9 % (42.2-75.2); PLATELET COUNT 249 10^3/uL (140-440); RDW COEFFICIENT OF VARIATION 13.7 % (11.6-14.8); RED BLOOD COUNT 4.25 10^6/ul (4.70-6.10); WHITE BLOOD COUNT 5.93 K/ul (4.2-10.2)
[2021-11-30 13:22] LABS: ALANINE AMINOTRANSFERASE 16.8 U/L (0-50); ALBUMIN 3.61 g/dL (3.5-5.0); ALKALINE PHOSPHATASE 72.5 U/L (56-119); BILIRUBIN,TOTAL 0.89 mg/dL (0.2-1.3); BLOOD UREA NITROGEN 13.1 mg/dL (9-20); CALCIUM 8.78 mg/dL (8.4-10.2); CARBON DIOXIDE 35.3 mmol/L (22-30.0); CHLORIDE 97.9 mmol/L (98-107); POTASSIUM 3.67 mmol/L (3.5-5.1); SODIUM 137.8 mmol/L (134.5-145); TOTAL PROTEIN 7.24 g/dL (6.3-8.2)
--- NOTE | 2021-11-30 13:32 | ED.PDOC ---
General ED Provider: Dr. STAN ABREU Chief Complaint: Respiratory Complaint Stated Complaint: exposed to ore feeder with URI then developed URI sx . Hasnt felt well past 3-4 days and not taking his meds consistently due to not feeling well. Prior covid and flu vaccine No chest pain. No new LE swelling . Some coughing with yellow thick sputum Time Seen by Provider: 11/30/21 12:31 Mode of Arrival: Wheelchair Information Source: Patient Exam Limitations: No limitations Primary Care Provider: MACKENZIE FUENTES Nursing and Triage Documentation Reviewed and Agree: Yes Does patient meet sepsis criteria?: No System Inflammatory Response Syndrome: Not Applicable Sepsis Protocol: For patient's 13 years and over: Temp is 96.8 and below OR 101 and greater Pulse >90 BPM Resp >20/minute Acutely Altered Mental Status Are patient's symptoms suggestive of a new infection, such as: -Pneumonia -Skin, Soft Tissue -Endocarditis -UTI -Bone, Joint Infection -Implantable Device -Acute Abdominal Infection -Wound Infection -Meningitis -Blood Stream Catheter Infection -Unknown Review of Systems Review Of Systems Constitutional: Reports Malaise and Loss of appetite Eyes: Reports No symptoms Ears, Nose, Mouth, Throat: Reports No symptoms Respiratory: Reports Cough and Wheezing Cardiac: Reports Edema GI: Reports Poor fluid intake : Reports No symptoms Musculoskeletal: Reports No symptoms Skin: Reports No symptoms Neurological: Reports Weakness Endocrine: Reports No symptoms Hematologic/Lymphatic: Reports No symptoms All Other Systems: Reviewed and Negative [facility] Medical History (Updated 12/01/21 @ 18:41 by STAN ABREU) Acute exacerbation of CHF (congestive heart failure) Acute exacerbation of chronic bronchitis B12 deficiency BPH (benign prostatic hyperplasia) Cellulitis CHF (congestive heart failure) Chronic bronchitis with COPD (chronic obstructive pulmonary disease) CKD (chronic kidney disease) COPD (chronic obstructive pulmonary disease) COPD with acute exacerbation COR (chronic cor pulmonale) Diabetes mellitus type 2 in obese Dyslipidemia Edema of both legs Essential (primary) hypertension Gout HTN (hypertension) Hypothyroidism Insomnia Obesity Skin cancer Family History Other No known health problems Social History (Updated 11/30/21 @ 16:50 by ESTRELLA GUTIERREZ RN) Smoking and tobacco status: Former smoker Physical Exam Physical Exam Appearance: Reports Ill-appearing and Obese Ill-appearing: Mild Pain Distress: None Eyes: Reports NATHAN and Conjunctiva clear ENT: Reports Ears normal, Nose normal and Oropharynx normal Neck: Supple Respiratory: Reports Airway patent, Breath sounds diminished, Respirations nonlabored and Wheezes Cardiovascular: Reports RRR and No murmur GI/: Reports Soft and Nontender Musculoskeletal: Reports No calf tenderness and Edema Skin: Reports Warm, Dry and Normal color Neurological: Reports Sensation intact, Motor intact and Oriented Psychiatric: Reports Affect appropriate and Mood appropriate Interpretation Radiology Interpretation Radiology Interpretation By: Radiologist Exam Interpreted: CXR and CT Scan Xray Comments: mild chf no pneu . no bleed EKG Interpretation Time of EKG #1: 13:06 Rate: Normal Rhythm: Sinus [place]: Left Interpretation: inverted t wave in V1 and V3 were p[present in April 2021 Critical Care Note Critical Care Note Total Critical Care Time (mins): 20 Comments: history / exam / labs imaging / chart review / reassess pt / nebs / back to ct for head ct for admitting here / IV furosamide & IV abx Course Course Hematology/Chemistry: 12/01/21 04:40 12/01/21 04:45 Orders, Labs, Meds: Lab Review 11/30/21 11/30/21 11/30/21 12:55 13:08 13:08 WBC 5.93 RBC 4.25 L Hgb 13.0 L Hct 41.8 L MCV 98.4 H MCH 30.6 MCHC 31.1 L RDW Coeff of Leonardo 13.7 Plt Count 249 Immature Gran % (Auto) 0.3 Neut % (Auto) 72.9 Lymph % (Auto) 14.8 [place] % (Auto) 11.3 H Eos % (Auto) 0.5 Baso % (Auto) 0.2 Neut # (Auto) 4.3 Lymph # (Auto) 0.9 [place] # (Auto) 0.7 Eos # (Auto) 0.0 Baso # (Auto) 0.0 Immature Gran # (Auto) 0.0 Sodium 137.8 Potassium 3.67 Chloride 97.9 L Carbon Dioxide 35.3 H Anion Gap 8.27 BUN 13.1 Creatinine 0.70 Estimated GFR (MDRD) 107.00 BUN/Creatinine Ratio 18.71 Glucose 134.0 H Calcium 8.78 Total Bilirubin 0.89 AST 27.0 ALT 16.8 Alkaline Phosphatase 72.5 Troponin I < 0.012 NT-Pro-B Natriuret Pep 382.000 H Total Protein 7.24 Albumin 3.61 Globulin 3.63 Albumin/Globulin Ratio 0.99 SARS CoV-2 RNA Rapid BAL Negative Orders Category Date Time Status EKG-(ED ONLY) Stat CARDIO 11/30/21 12:46 Completed NEBULIZER TREATMENT Stat CARDIO 11/30/21 12:50 Completed CBC W/ AUTO DIFF Stat LAB 11/30/21 13:08 Completed COMPREHENSIVE METABOLIC PANEL Stat LAB 11/30/21 13:08 Completed NT-PROBNP Stat LAB 11/30/21 13:08 Completed SARS COV-2 RNA RAPID BAL Stat LAB 11/30/21 12:55 Completed SPUTUM CULTURE Stat LAB 11/30/21 13:11 Results TROPONIN I Stat LAB 11/30/21 13:08 Completed URINALYSIS C & S IF INDICATED Stat LAB 11/30/21 15:30 Completed Doxycycline Hyclate Inj [Doxy-100] 100 mg MEDS 11/30/21 15:00 Active 0.9 % Sodium Chloride [Sodium Chloride 100Ml] 100 ml IV Q12HR Furosemide [Lasix] MEDS 11/30/21 14:48 Discontinued 20 mg IVP ONCE STA Ipratropium/Albuterol Neb [Duoneb] MEDS 11/30/21 12:50 Discontinued 3 ml NEB ONCE STA Methylprednisolone Sod Succ/Pf [Solu-Medrol 40 mg] MEDS 11/30/21 14:48 Discontinued 40 mg IVP ONCE STA CHEST, 1V AP ONLY Stat RADS 11/30/21 12:[address] HEAD W/O CONTRAST Stat RADS 11/30/21 14:47 Completed Medications Generic Name Dose Route Start Last Admin Trade Name Mikyq PRN Reason Stop Dose Admin Acetaminophen 650 mg 11/30/21 15:44 Acetaminophen 325 Mg Tablet PO Q4H PRN Headache Albuterol/Ipratropium 3 ml 11/30/21 20:00 12/01/21 19:04 Ipratropium/Albuterol Vial.Neb NEB 3 ml RTQID PATRICIA Administration Allopurinol 200 mg 12/01/21 09:00 12/01/21 08:33 Allopurinol 100 Mg Tablet PO 200 mg DAILY PATRICIA Administration Atropine Sulfate 0.5 mg 11/30/21 15:44 Atropine Sulfate Inj 1 Mg/10 Ml Disp.Syrin IVP ONCE PRN Symptomatic Bradycardia Budesonide 1 mg 11/30/21 21:00 10/02/22 19:04 Budesonide 1 Mg/2 Ml Vial.Neb NEB 1 mg BEDTIME PATRICIA Administration Carvedilol 3.125 mg 12/01/21 08:30 12/01/21 17:15 Carvedilol 3.125 Mg Tablet PO 3.125 mg BIDWM PATRICIA Administration Dextrose 50 ml 12/01/21 09:33 Dextrose 50 % In Water 50 Ml Disp.Syrin IVP PRN PRN Hypoglycemia Enoxaparin Sodium 40 mg 12/01/21 09:00 12/01/21 08:33 Enoxaparin Sodium 40 Mg/0.4 Ml Syr SUBCUT 40 mg DAILY PATRICIA Administration Escitalopram Oxalate 20 mg 12/01/21 09:00 12/01/21 08:32 Escitalopram Oxalate 10 Mg Tablet PO 20 mg DAILY PATRICIA Administration Furosemide 40 mg 12/01/21 06:30 12/01/21 05:40 Furosemide 40 Mg Tablet PO 40 mg QDAC PATRICIA Administration Doxycycline Hyclate 100 mg/ 100 mls @ 50 mls/hr 11/30/21 15:00 12/01/21 20:13 Sodium Chloride IV 12/03/21 14:59 50 mls/hr Q12HR PATRICIA Administration Insulin Human Regular 0 unit 12/01/21 15:10 12/01/21 17:15 Insulin Regular, Human 100 Unit/Ml (3ml) Vial SUBCUT 4 unit PRN PRN Administration Hyperglycemia Protocol Levothyroxine Sodium 100 mcg 12/01/21 06:30 12/01/21 05:40 Levothyroxine Sodium 100 Mcg Tablet PO 100 mcg QDAC PATRICIA Administration Lorazepam 1 mg 11/30/21 21:00 12/01/21 20:14 Lorazepam 1 Mg Tablet PO 1 mg BEDTIME PATRICIA Administration Metformin HCl 500 mg 12/01/21 08:30 12/01/21 17:15 Metformin Hcl 500 Mg Tablet PO 500 mg BIDWM PATRICIA Administration Methylprednisolone Sodium Succinate 20 mg 12/02/21 09:00 Methylprednisolone Sod Succ/Pf 40 Mg/Ml Vial IVP DAILY PATRICIA Nitroglycerin 0.4 mg 11/30/21 15:44 Nitroglycerin 0.4 Mg Tab.Subl SL Q5MIN X 3 DOSES PRN Chest Pain Omeprazole 40 mg 12/01/21 07:30 12/01/21 07:39 Omeprazole 20 Mg Capsule.Dr PO 40 mg QDAC PATRICIA Administration Pravastatin Sodium 40 mg 11/30/21 21:00 12/01/21 20:14 Pravastatin Sodium 40 Mg Tablet PO 40 mg BEDTIME PATRICIA Administration Prednisone 5 mg 12/01/21 08:30 Prednisone 5 Mg Tablet PO DAILYWM PATRICIA Sodium Chloride 1 syr 11/30/21 21:00 12/01/21 20:14 0.9% Sodium Chloride 10 Ml Disp.Syrin IVF 1 syr Q8HR PATRICIA Administration Spironolactone 25 mg 12/01/21 09:00 12/01/21 08:33 Spironolactone 25 Mg Tablet PO 25 mg DAILY PATRICIA Administration Tamsulosin HCl 0.4 mg 12/01/21 09:00 12/01/21 08:33 Tamsulosin Hcl 0.4 Mg Cap.Er.24h PO 0.4 mg DAILY PATRICIA Administration Tramadol HCl 50 mg 11/30/21 17:13 Tramadol Hcl 50 Mg Tablet PO BID PRN generalized moderate pain Discontinued Medications Generic Name Dose Route Start Last Admin Trade Name Freq PRN Reason Stop Dose Admin Albuterol/Ipratropium 3 ml 11/30/21 12:50 11/30/21 14:19 Ipratropium/Albuterol Vial.Neb NEB 11/30/21 12:51 3 ml ONCE STA Administration Furosemide 20 mg 11/30/21 14:48 11/30/21 15:14 Furosemide Inj 20 Mg/2 Ml Vial IVP 11/30/21 14:49 20 mg ONCE STA Administration Methylprednisolone Sodium Succinate 40 mg 11/30/21 14:48 11/30/21 15:14 Methylprednisolone Sod Succ/Pf 40 Mg/Ml Vial IVP 11/30/21 14:49 40 mg ONCE STA Administration Methylprednisolone Sodium Succinate 40 mg 12/01/21 09:00 12/01/21 08:32 Methylprednisolone Sod Succ/Pf 40 Mg/Ml Vial IVP 40 mg DAILY PATRICIA Administration Vital Signs: Temp Pulse Resp BP Pulse Ox 11/30/21 12:28 98.0 F 77 22 H 145/75 H 88 L pt agrees with plan cant go back home no constant care and too weak for self care Discharge Plan Discharge Patient Disposition: ADMITTED INPATIENT Discharge Problem: COPD with acute exacerbation, Acute exacerbation of CHF (congestive heart failure), Acute exacerbation of chronic bronchitis Did you review [place] [employer]?: No ED Provider: STAN ABREU Condition: Stable Physician Progress Note: []
[2021-11-30 13:35] LABS: TROPONIN I < 0.012 ng/ml (0.0000-0.120)
[2021-11-30] MEDS ORDERED: SOLU-MEDROL 40 MG IVP STA (14:48)
[2021-11-30] MEDS ORDERED: LASIX IVP STA (14:48)
[2021-11-30] MEDS: DOXY-100 100 MG in SODIUM CHLORIDE 100ML 100 ML IV SCH ×2 (15:15→20:42)
--- NOTE | 2021-11-30 15:17 | CT ---
EXAM: CT head without contrast. HISTORY: Mental status change. COMPARISON: None. TECHNIQUE: Multiple axial images of the brain were obtained from the skull base through the vertex w ithout intravenous contrast. Multiplanar reformats were provided. FINDINGS: Motion artifact degrades image quality. There is no intracranial hemorrhage or extraaxial collection. The fregoso-white differentiation is maintained without evidence for acute large vascular territory infarction. There are areas of periventricular and subcortical white matter low attenuatio n. The cortical sulci and cerebral ventricles are symmetrically enlarged. The basal cisterns are we ll visualized. There is no hydrocephalus, mass effect, or midline shift. Moderate right maxillary s inus mucosal thickening. Moderate to severe ethmoid sinus mucosal thickening. Otherwise, the parana dae sinuses and mastoid air cells are clear. The calvarium is intact. IMPRESSION: 1. No acute intracranial abnormality. 2. Chronic small vessel ischemic changes and atrophy. All CT scans are performed using dose optimization techniques as appropriate to the performed exam an d include at least one of the following: Automated exposure control, adjustment of the mA and/or kV according t o size, and the use of iterative reconstruction technique.
[2021-11-30 15:43] LABS: BILIRUBIN,URINE Negative (NEGATIVE); CLARITY,URINE Clear (CLEAR); COLOR,URINE Yellow (YELLOW); GLUCOSE, URINE (UA) Negative (NEGATIVE); KETONES,URINE Negative (NEGATIVE); LEUKOCYTE ESTERASE ,URINE Negative (NEGATIVE); NITRITE,URINE Negative (NEGATIVE); PROTEIN,URINE Trace (NEGATIVE); URINE, BLOOD Negative (NEGATIVE)
[2021-11-30] MEDS ORDERED: ATROPINE SULFATE PFS IVP PRN (15:44)
[2021-11-30] MEDS ORDERED: TYLENOL PO PRN (15:44)
[2021-11-30] MEDS ORDERED: NITROSTAT SL PRN (15:44)
[2021-11-30 15:53] LABS: MUCUS,URINE TRACE (NOT PRESENT)
[2021-11-30 16:24] VITALS: BMI 28.5
[2021-11-30] MEDS ORDERED: ULTRAM PO PRN (17:13)
[2021-11-30] MEDS: DUONEB NEB SCH (19:18)
[2021-11-30] MEDS: PULMICORT 1 MG/2 ML NEB SCH (19:18)
[2021-11-30] MEDS: PRAVACHOL PO SCH (20:43)
[2021-11-30] MEDS: ATIVAN PO SCH (20:43)
[2021-11-30] MEDS ORDERED: DUONEB NEB SCH (21:00)
[2021-12-01 04:48] LABS: BASOPHILS % (AUTO) 0.2 % (0.0-3.0); HEMATOCRIT 41.2 % (42.0-52.0); HEMOGLOBIN 12.9 g/dl (14.0-18.0); IMMATURE GRANULOCYTE % (AUTO) 0.7 % (0.0-5.0); LYMPHOCYTES # (AUTO) 0.8 K/uL (0.60-3.4); LYMPHOCYTES % (AUTO) 13.8 (10.0-50.0); MEAN CORPUSCULAR HEMOGLOBIN 30.7 pg (27.0-31.0); MEAN CORPUSCULAR HGB CONC 31.3 (31.8-35.4); MEAN CORPUSCULAR VOLUME 98.1 fl (80.0-94.0); MONOCYTES # (AUTO) 0.5 K/uL (0.4-2.0); MONOCYTES % (AUTO) 8.3 (0-10); NEUTROPHILS # (AUTO) 4.6 K/ul (2.0-6.9); PLATELET COUNT 261 10^3/uL (140-440); RDW COEFFICIENT OF VARIATION 13.8 % (11.6-14.8)
[2021-12-01 04:59] LABS: ALANINE AMINOTRANSFERASE 16.6 U/L (0-50); ALBUMIN 3.34 g/dL (3.5-5.0); ALKALINE PHOSPHATASE 59.4 U/L (56-119); ASPARTATE AMINO TRANSFERASE 29.8 U/L (17-59); BILIRUBIN,TOTAL 0.69 mg/dL (0.2-1.3); BLOOD UREA NITROGEN 16.6 mg/dL (9-20); CALCIUM 8.53 mg/dL (8.4-10.2); CARBON DIOXIDE 32.2 mmol/L (22-30.0); CHLORIDE 98.9 mmol/L (98-107); CREATININE 0.68 mg/dL (0.60-1.10); GLUCOSE 141.1 mg/dL (74-106); POTASSIUM 3.76 mmol/L (3.5-5.1); SODIUM 136.4 mmol/L (134.5-145); TOTAL PROTEIN 6.92 g/dL (6.3-8.2)
[2021-12-01] MEDS: DUONEB NEB SCH ×4 (05:26→19:04)
[2021-12-01] MEDS: SYNTHROID PO SCH (05:40)
[2021-12-01] MEDS: LASIX TAB PO SCH (05:40)
[2021-12-01] MEDS: PRILOSEC PO SCH (07:39)
[2021-12-01] MEDS ORDERED: PREDNISONE PO SCH (08:30)
[2021-12-01] MEDS: LEXAPRO PO SCH (08:32)
[2021-12-01] MEDS: COREG PO SCH ×2 (08:33→17:15)
[2021-12-01] MEDS: FLOMAX PO SCH (08:33)
[2021-12-01] MEDS: ZYLOPRIM PO SCH (08:33)
[2021-12-01] MEDS: LOVENOX SUBCUT SCH (08:33)
[2021-12-01] MEDS: GLUCOPHAGE PO SCH ×2 (08:33→17:15)
[2021-12-01] MEDS: ALDACTONE PO SCH (08:33)
[2021-12-01] MEDS: DOXY-100 100 MG in SODIUM CHLORIDE 100ML 100 ML IV SCH ×2 (08:34→20:13)
--- NOTE | 2021-12-01 08:57 | PCM ---
Chief Complaint Chief Complaint: cough for three days , some sputum , weak. Hasnt eaten past 1-2 days , missed some meds cause wasnt feeling well History of Present Illness History of Present Illness: has two friends that look in on him one of them goe a URI and then past week patient got it. He is vaccinated for covid Denies excess weight gain. Review of Systems Constitutional: Reports Weakness and Loss of appetite Eyes: Reports No symptoms Ears: Reports No symptoms Nose: Reports No symptoms Throat: Reports No symptoms Mouth: Reports No symptoms Respiratory: Reports Cough, Shortness of air and Wheeze Cardiovascular: Reports Edema Gastrointestinal: Reports No symptoms Genitourinary: Reports No symptoms Neurological: Reports Weakness Musculoskeletal: Reports No symptoms Skin: Reports No symptoms Immunology: Reports No symptoms Hematology: Reports No symptoms Endocrine: Reports No symptoms Psychiatric: Reports No symptoms Habits: Denies Tobacco use, Substance use, Alcohol use or Other Allergies Allergies Allergy/AdvReac Type Severity Reaction Status Date / Time No Known Allergies Allergy Verified 11/30/21 12:33 [facility] Medical History (Updated 12/01/21 @ 18:41 by STAN ABREU) Acute exacerbation of CHF (congestive heart failure) Acute exacerbation of chronic bronchitis B12 deficiency BPH (benign prostatic hyperplasia) Cellulitis CHF (congestive heart failure) Chronic bronchitis with COPD (chronic obstructive pulmonary disease) CKD (chronic kidney disease) COPD (chronic obstructive pulmonary disease) COPD with acute exacerbation COR (chronic cor pulmonale) Diabetes mellitus type 2 in obese Dyslipidemia Edema of both legs Essential (primary) hypertension Gout HTN (hypertension) Hypothyroidism Insomnia Obesity Skin cancer Family History Other No known health problems Social History (Updated 11/30/21 @ 16:50 by ESTRELLA GUTIERREZ RN) Smoking and tobacco status: Former smoker Medications Medications: Medications Generic Name Dose Route Start Last Admin Trade Name Freq PRN Reason Stop Dose Admin Acetaminophen 650 mg 11/30/21 15:44 Acetaminophen 325 Mg Tablet PO Q4H PRN Headache Albuterol/Ipratropium 3 ml 11/30/21 20:00 12/01/21 05:26 Ipratropium/Albuterol Vial.Neb NEB 3 ml RTQID PATRICIA Administration Allopurinol 200 mg 12/01/21 09:00 12/01/21 08:33 Allopurinol 100 Mg Tablet PO 200 mg DAILY PATRICIA Administration Atropine Sulfate 0.5 mg 11/30/21 15:44 Atropine Sulfate Inj 1 Mg/10 Ml Disp.Syrin IVP ONCE PRN Symptomatic Bradycardia Budesonide 1 mg 11/30/21 21:00 11/30/21 19:18 Budesonide 1 Mg/2 Ml Vial.Neb NEB 1 mg BEDTIME PATRICIA Administration Carvedilol 3.125 mg 12/01/21 08:30 12/01/21 08:33 Carvedilol 3.125 Mg Tablet PO 3.125 mg BIDWM PATRICIA Administration Enoxaparin Sodium 40 mg 12/01/21 09:00 12/01/21 08:33 Enoxaparin Sodium 40 Mg/0.4 Ml Syr SUBCUT 40 mg DAILY PATRICIA Administration Escitalopram Oxalate 20 mg 12/01/21 09:00 12/01/21 08:32 Escitalopram Oxalate 10 Mg Tablet PO 20 mg DAILY PATRICIA Administration Furosemide 40 mg 12/01/21 06:30 12/01/21 05:40 Furosemide 40 Mg Tablet PO 40 mg QDAC PATRICIA Administration Doxycycline Hyclate 100 mg/ 100 mls @ 50 mls/hr 11/30/21 15:00 12/01/21 08:34 Sodium Chloride IV 12/03/21 14:59 50 mls/hr Q12HR PATRICIA Administration Levothyroxine Sodium 100 mcg 12/01/21 06:30 12/01/21 05:40 Levothyroxine Sodium 100 Mcg Tablet PO 100 mcg QDAC PATRICIA Administration Lorazepam 1 mg 11/30/21 21:00 11/30/21 20:43 Lorazepam 1 Mg Tablet PO 1 mg BEDTIME PATRICIA Administration Metformin HCl 500 mg 12/01/21 08:30 12/01/21 08:33 Metformin Hcl 500 Mg Tablet PO 500 mg BIDWM PATRICIA Administration Methylprednisolone Sodium Succinate 40 mg 12/01/21 09:00 12/01/21 08:32 Methylprednisolone Sod Succ/Pf 40 Mg/Ml Vial IVP 40 mg DAILY PATRICIA Administration Nitroglycerin 0.4 mg 11/30/21 15:44 Nitroglycerin 0.4 Mg Tab.Subl SL Q5MIN X 3 DOSES PRN Chest Pain Omeprazole 40 mg 12/01/21 07:30 12/01/21 07:39 Omeprazole 20 Mg Capsule.Dr PO 40 mg QDAC PATRICIA Administration Pravastatin Sodium 40 mg 11/30/21 21:00 11/30/21 20:43 Pravastatin Sodium 40 Mg Tablet PO 40 mg BEDTIME PATRICIA Administration Prednisone 5 mg 12/01/21 08:30 Prednisone 5 Mg Tablet PO DAILYWM PATRICIA Sodium Chloride 1 syr 11/30/21 21:00 12/01/21 05:40 0.9% Sodium Chloride 10 Ml Disp.Syrin IVF 1 syr Q8HR PATRICIA Administration Spironolactone 25 mg 12/01/21 09:00 12/01/21 08:33 Spironolactone 25 Mg Tablet PO 25 mg DAILY PATRICIA Administration Tamsulosin HCl 0.4 mg 12/01/21 09:00 12/01/21 08:33 Tamsulosin Hcl 0.4 Mg Cap.Er.24h PO 0.4 mg DAILY PATRICIA Administration Tramadol HCl 50 mg 11/30/21 17:13 Tramadol Hcl 50 Mg Tablet PO BID PRN generalized moderate pain Body Composition Height: 6 ft Weight: 210 lb 6 oz Body Mass Index (BMI): 28.5 Vital Signs Temperature: 97 F Pulse Rate: 70 Respiratory Rate: 18 Blood Pressure: 128/82 O2 Sat by Pulse Oximetry: 97 Physical Examination Appearance: Reports Ill-appearing and Obese Ill-appearing: Moderate Pain Distress: Mild Eyes: Reports Conjunctiva clear ENT: Reports Ears normal, Nose normal and Oropharynx normal Neck: Supple Respiratory: Reports Airway patent, Breath sounds diminished, Respirations nonlabored and Wheezes Cardiovascular: Reports RRR and No murmur GI/: Reports Soft and Nontender Musculoskeletal: Reports Normal strength, No calf tenderness and Edema Skin: Reports Warm, Dry and Normal color Neurological: Reports Motor intact, Alert and Oriented Psychiatric: Reports Affect appropriate and Mood appropriate Lab/Tests/Diagnostic Imaging Lab/Tests/Diagnostic Imaging: Lab Review 11/30/21 11/30/21 11/30/21 12:55 13:08 13:08 WBC 5.93 RBC 4.25 L Hgb 13.0 L Hct 41.8 L MCV 98.4 H MCH 30.6 MCHC 31.1 L RDW Coeff of Leonardo 13.7 Plt Count 249 Immature Gran % (Auto) 0.3 Neut % (Auto) 72.9 Lymph % (Auto) 14.8 [place] % (Auto) 11.3 H Eos % (Auto) 0.5 Baso % (Auto) 0.2 Neut # (Auto) 4.3 Lymph # (Auto) 0.9 [place] # (Auto) 0.7 Eos # (Auto) 0.0 Baso # (Auto) 0.0 Immature Gran # (Auto) 0.0 Sodium 137.8 Potassium 3.67 Chloride 97.9 L Carbon Dioxide 35.3 H Anion Gap 8.27 BUN 13.1 Creatinine 0.70 Estimated GFR (MDRD) 107.00 BUN/Creatinine Ratio 18.71 Glucose 134.0 H Calcium 8.78 Total Bilirubin 0.89 AST 27.0 ALT 16.8 Alkaline Phosphatase 72.5 Troponin I < 0.012 NT-Pro-B Natriuret Pep 382.000 H Total Protein 7.24 Albumin 3.61 Globulin 3.63 Albumin/Globulin Ratio 0.99 Urine Color Urine Clarity Urine pH Ur Specific [place] Urine Protein Urine Glucose (UA) Urine Ketones Urine Blood Urine Nitrite Urine Bilirubin Urine Urobilinogen Ur Leukocyte Esterase Ur Squamous Epith Cells Urine Mucus SARS CoV-2 RNA Rapid BAL Negative 11/30/21 12/01/21 12/01/21 15:30 04:40 04:45 WBC 6.00 RBC 4.20 L Hgb 12.9 L Hct 41.2 L MCV 98.1 H MCH 30.7 MCHC 31.3 L RDW Coeff of Leonardo 13.8 Plt Count 261 Immature Gran % (Auto) 0.7 Neut % (Auto) 77.0 H Lymph % (Auto) 13.8 [place] % (Auto) 8.3 Eos % (Auto) 0.0 Baso % (Auto) 0.2 Neut # (Auto) 4.6 Lymph # (Auto) 0.8 [place] # (Auto) 0.5 Eos # (Auto) 0.0 Baso # (Auto) 0.0 Immature Gran # (Auto) 0.0 Sodium 136.4 Potassium 3.76 Chloride 98.9 Carbon Dioxide 32.2 H Anion Gap 9.06 BUN 16.6 Creatinine 0.68 Estimated GFR (MDRD) 111.00 BUN/Creatinine Ratio 24.41 Glucose 141.1 H Calcium 8.53 Total Bilirubin 0.69 AST 29.8 ALT 16.6 Alkaline Phosphatase 59.4 Troponin I NT-Pro-B Natriuret Pep Total Protein 6.92 Albumin 3.34 L Globulin 3.58 Albumin/Globulin Ratio 0.93 Urine Color Yellow Urine Clarity Clear Urine pH 6.0 Ur Specific [place] 1.025 Urine Protein Trace H Urine Glucose (UA) Negative Urine Ketones Negative Urine Blood Negative Urine Nitrite Negative Urine Bilirubin Negative Urine Urobilinogen 1.0 H Ur Leukocyte Esterase Negative Ur Squamous Epith Cells 2-5 Urine Mucus Trace SARS CoV-2 RNA Rapid BAL Orders Category Date Time Status ADMIT PATIENT INPATIENT .TO [facility] (MONITORED BED) ADMISSION 11/30/21 15:20 Active EKG-(ED ONLY) Stat CARDIO 11/30/21 12:46 Completed NEBULIZER TREATMENT Routine CARDIO 11/30/21 18:53 Active NEBULIZER TREATMENT Stat CARDIO 11/30/21 12:50 Completed OXYGEN Routine CARDIO 11/30/21 15:44 Active ACCUCHECK (MED/SURG, SCU) [BLOOD GLUCOSE MONITORING ( CARE 11/30/21 16:20 Active MED/SURG)] 0630,1100,1700,2100 ACTIVITY .BR with BRP CARE 11/30/21 15:44 Active CASE MANAGEMENT CONSULT ONCE CARE 12/01/21 07:19 Active Notify RT of Treatment ONCE CARE 11/30/21 18:53 Active TELEMETRY MONITORING TELE CARE 11/30/21 15:44 Active VITAL SIGNS Q8HR CARE 11/30/21 15:44 Completed WEIGH PATIENT 0600 CARE 11/30/21 16:19 Active CONSISTENT CARBS DIET DIETARY 12/01/21 Breakfast Ordered CBC W/ AUTO DIFF Routine LAB 12/01/21 04:40 Completed CBC W/ AUTO DIFF Stat LAB 11/30/21 13:08 Completed CMP [COMPREHENSIVE METABOLIC PANEL] Routine LAB 12/01/21 04:45 Completed COMPREHENSIVE METABOLIC PANEL Stat LAB 11/30/21 13:08 Completed NT-PROBNP Stat LAB 11/30/21 13:08 Completed SARS COV-2 RNA RAPID BAL Stat LAB 11/30/21 12:55 Completed SPUTUM CULTURE Stat LAB 11/30/21 13:11 Results TROPONIN I Stat LAB 11/30/21 13:08 Completed URINALYSIS C & S IF INDICATED Stat LAB 11/30/21 15:30 Completed 0.9 % Sodium Chloride [Saline Flush] MEDS 11/30/21 21:00 Active 1 syr IVF Q8HR Acetaminophen [Tylenol] MEDS 11/30/21 15:44 Active 650 mg PO Q4H PRN Allopurinol [Zyloprim] MEDS 12/01/21 09:00 Active 200 mg PO DAILY Atropine Sulfate Inj [Atropine Sulfate Pfs] MEDS 11/30/21 15:44 Active 0.5 mg IVP ONCE PRN Budesonide [Pulmicort 1 mg/2 ml] MEDS 11/30/21 21:00 Active 1 mg NEB BEDTIME Carvedilol [Coreg] MEDS 12/01/21 08:30 Active 3.125 mg PO BIDWM Doxycycline Hyclate Inj [Doxy-100] 100 mg MEDS 11/30/21 15:00 Active 0.9 % Sodium Chloride [Sodium Chloride 100Ml] 100 ml IV Q12HR Enoxaparin Sodium [Lovenox] MEDS 12/01/21 09:00 Active 40 mg SUBCUT DAILY Escitalopram Oxalate [Lexapro] MEDS 12/01/21 09:00 Active 20 mg PO DAILY Furosemide [Lasix Tab] MEDS 12/01/21 06:30 Active 40 mg PO QDAC Furosemide [Lasix] MEDS 11/30/21 14:48 Discontinued 20 mg IVP ONCE STA Ipratropium/Albuterol Neb [Duoneb] MEDS 11/30/21 12:50 Discontinued 3 ml NEB ONCE STA Ipratropium/Albuterol Neb [Duoneb] MEDS 11/30/21 20:00 Active 3 ml NEB RTQID Levothyroxine Sodium [Synthroid] MEDS 12/01/21 06:30 Active 100 mcg PO QDAC Lorazepam [Ativan] MEDS 11/30/21 21:00 Active 1 mg PO BEDTIME Metformin HCl [Glucophage] MEDS 12/01/21 08:30 Active 500 mg PO BIDWM Methylprednisolone Sod Succ/Pf [Solu-Medrol 40 mg] MEDS 12/01/21 09:00 Active 40 mg IVP DAILY Methylprednisolone Sod Succ/Pf [Solu-Medrol 40 mg] MEDS 11/30/21 14:48 Discontinued 40 mg IVP ONCE STA Nitroglycerin [Nitrostat] MEDS 11/30/21 15:44 Active 0.4 mg SL Q5MIN X 3 DOSES PRN Omeprazole [Prilosec] MEDS 12/01/21 07:30 Active 40 mg PO QDAC Pravastatin Sodium [Pravachol] MEDS 11/30/21 21:00 Active 40 mg PO BEDTIME Prednisone MEDS 12/01/21 08:30 Hold 5 mg PO DAILYWM Spironolactone [Aldactone] MEDS 12/01/21 09:00 Active 25 mg PO DAILY Tamsulosin HCl [Flomax] MEDS 12/01/21 09:00 Active 0.4 mg PO DAILY Tramadol HCl [Ultram] MEDS 11/30/21 17:13 Active 50 mg PO BID PRN RESUSCITATION STATUS Routine OTHERS 11/30/21 16:24 Ordered CHEST, 1V AP ONLY Stat RADS 11/30/21 12:[address] HEAD W/O CONTRAST Stat RADS 11/30/21 14:47 Completed OT CONSULTATION Routine THERAPIES 11/30/21 Ordered PT CONSULT Routine THERAPIES 11/30/21 Ordered SPEECH CONSULT Routine THERAPIES 11/30/21 Ordered Medications Generic Name Dose Route Start Last Admin Trade Name Freq PRN Reason Stop Dose Admin Acetaminophen 650 mg 11/30/21 15:44 Acetaminophen 325 Mg Tablet PO Q4H PRN Headache Albuterol/Ipratropium 3 ml 11/30/21 20:00 12/01/21 05:26 Ipratropium/Albuterol Vial.Neb NEB 3 ml RTQID PATRICIA Administration Allopurinol 200 mg 12/01/21 09:00 12/01/21 08:33 Allopurinol 100 Mg Tablet PO 200 mg DAILY PATRICIA Administration Atropine Sulfate 0.5 mg 11/30/21 15:44 Atropine Sulfate Inj 1 Mg/10 Ml Disp.Syrin IVP ONCE PRN Symptomatic Bradycardia Budesonide 1 mg 11/30/21 21:00 11/30/21 19:18 Budesonide 1 Mg/2 Ml Vial.Neb NEB 1 mg BEDTIME PATRICIA Administration Carvedilol 3.125 mg 12/01/21 08:30 12/01/21 08:33 Carvedilol 3.125 Mg Tablet PO 3.125 mg BIDWM PATRICIA Administration Enoxaparin Sodium 40 mg 12/01/21 09:00 12/01/21 08:33 Enoxaparin Sodium 40 Mg/0.4 Ml Syr SUBCUT 40 mg DAILY PATRICIA Administration Escitalopram Oxalate 20 mg 12/01/21 09:00 12/01/21 08:32 Escitalopram Oxalate 10 Mg Tablet PO 20 mg DAILY PATRICIA Administration Furosemide 40 mg 12/01/21 06:30 12/01/21 05:40 Furosemide 40 Mg Tablet PO 40 mg QDAC PATRICIA Administration Doxycycline Hyclate 100 mg/ 100 mls @ 50 mls/hr 11/30/21 15:00 12/01/21 08:34 Sodium Chloride IV 12/03/21 14:59 50 mls/hr Q12HR PATRICIA Administration Levothyroxine Sodium 100 mcg 12/01/21 06:30 12/01/21 05:40 Levothyroxine Sodium 100 Mcg Tablet PO 100 mcg QDAC PATRICIA Administration Lorazepam 1 mg 11/30/21 21:00 11/30/21 20:43 Lorazepam 1 Mg Tablet PO 1 mg BEDTIME PATRICIA Administration Metformin HCl 500 mg 12/01/21 08:30 12/01/21 08:33 Metformin Hcl 500 Mg Tablet PO 500 mg BIDWM PATRICIA Administration Methylprednisolone Sodium Succinate 40 mg 12/01/21 09:00 12/01/21 08:32 Methylprednisolone Sod Succ/Pf 40 Mg/Ml Vial IVP 40 mg DAILY PATRICIA Administration Nitroglycerin 0.4 mg 11/30/21 15:44 Nitroglycerin 0.4 Mg Tab.Subl SL Q5MIN X 3 DOSES PRN Chest Pain Omeprazole 40 mg 12/01/21 07:30 12/01/21 07:39 Omeprazole 20 Mg Capsule.Dr PO 40 mg QDAC [facility] Administration Pravastatin Sodium 40 mg 11/30/21 21:00 11/30/21 20:43 Pravastatin Sodium 40 Mg Tablet PO 40 mg BEDTIME PATRICIA Administration Prednisone 5 mg 12/01/21 08:30 Prednisone 5 Mg Tablet PO DAILYWM [facility] Sodium Chloride 1 syr 11/30/21 21:00 12/01/21 05:40 0.9% Sodium Chloride 10 Ml Disp.Syrin IVF 1 syr Q8HR PATRICIA Administration Spironolactone 25 mg 12/01/21 09:00 12/01/21 08:33 Spironolactone 25 Mg Tablet PO 25 mg DAILY [facility] Administration Tamsulosin HCl 0.4 mg 12/01/21 09:00 12/01/21 08:33 Tamsulosin Hcl 0.4 Mg Cap.Er.24h PO 0.4 mg DAILY [facility] Administration Tramadol HCl 50 mg 11/30/21 17:13 Tramadol Hcl 50 Mg Tablet PO BID PRN generalized moderate pain Discontinued Medications Generic Name Dose Route Start Last Admin Trade Name Freq PRN Reason Stop Dose Admin Albuterol/Ipratropium 3 ml 11/30/21 12:50 11/30/21 14:19 Ipratropium/Albuterol Vial.Neb NEB 11/30/21 12:51 3 ml ONCE STA Administration Furosemide 20 mg 11/30/21 14:48 11/30/21 15:14 Furosemide Inj 20 Mg/2 Ml Vial IVP 11/30/21 14:49 20 mg ONCE STA Administration Methylprednisolone Sodium Succinate 40 mg 11/30/21 14:48 11/30/21 15:14 Methylprednisolone Sod Succ/Pf 40 Mg/Ml Vial IVP 11/30/21 14:49 40 mg ONCE STA Administration Assessment (1) Acute exacerbation of CHF (congestive heart failure): Status: Acute Code(s): I50.9 - Heart failure, unspecified SNOMED Code(s): 452164355 (2) Acute exacerbation of chronic bronchitis: Status: Acute Code(s): J20.9 - Acute bronchitis, unspecified; J42 - Unspecified chronic bronchitis SNOMED Code(s): 401536251 (3) COPD with acute exacerbation: Status: Acute Code(s): J44.1 - Chronic obstructive pulmonary disease with (acute) exacerbation SNOMED Code(s): 909659954 Plan Plan: 1. For abnormal sputum / bronchitis - sputum C&S , IV doxy 2.For CHF - IV lasix 20 mg in ED , resume furosamide and spironolactone PO 3.For COPD exacerbation - prednisoen 40 mg IV daily for 5 days, nebs 4.Weakness - neg head ct without , will need PT eval 5.Home - will need social service / case mgnt consult f
[2021-12-01] MEDS ORDERED: SOLU-MEDROL 40 MG IVP SCH (09:00)
--- NOTE | 2021-12-01 09:09 | PCM.PROG ---
Date Seen by Provider: 12/01/21 Time Seen by Provider: 07:10 Subjective: Stated he is feeling better. NIght nursing staff relate no events through the night. Discussed todays plan with day staff. Patient appears better today regarding his strength and alertness. Objective: Vitals: T=97 F, P=70, R=18, GE=227/82, SPO2=97 HEENT: [no icterus voice good] Neck: [No jvd] Lungs: Clear this am with loose cough [] CVS: [regualr no murmur] Abdomen: [obese , soft ] Extremities: [baseline edema bilateral lower legs no weeping , erythema ] Neurological: [alert , more conversive ] Skin: [no rash ] Lab/Tests/Diagnostic Imaging: Co2 improved from 35 to 32 , glu 141 , wbc 6 neuts 77] (1) COPD with acute exacerbation: Status: Acute Code(s): J44.1 - Chronic obstructive pulmonary disease with (acute) exacerbation SNOMED Code(s): 425521082 Assessment: improved this am - continue total 4 days copd dose prednisone @ 40 mg per day - day two today, nebs q 4 hr , decrteased FIO2 from 3 lpm to 2 lpm , RT evaluation appreciated (2) Acute exacerbation of chronic bronchitis: Status: Acute Code(s): J20.9 - Acute bronchitis, unspecified; J42 - Unspecified chronic bronchitis SNOMED Code(s): 411043189 Assessment: continue IV doxy 100mg IV Q 12 hrs - day two (3) Acute exacerbation of CHF (congestive heart failure): Status: Acute Code(s): I50.9 - Heart failure, unspecified SNOMED Code(s): 629193659 Assessment: Improved - resumed missed home med doses of furosamide 40 mg po daily and spironolactone 25 mg po daily, reduced salt diet Plan: 1.GI - omeprazole 30 mg po daily 2.DVT - lovenox 40mg sq q 24 hrs 3PT consult for preparation for home 4.Social work consult - needs at home for discharge 5.Hyperglycemia - resume home oral metformin , consistant carb diet, expect elevated glucose from prednisone , add sliding scale regular and D50 IV if needed for hypoglycemia below 60mg % 6.HgA1c & TSH /FT4 all up to date 7.Gout hx - no uric acid found - add uric acid level from this am lab draw i
[2021-12-01] MEDS ORDERED: DEXTROSE 50%-WATER ABBOJECT IVP PRN (09:33)
[2021-12-01] MEDS: HUMULIN R SUBCUT PRN (17:15)
[2021-12-01] MEDS: PULMICORT 1 MG/2 ML NEB SCH (19:04)
[2021-12-01] MEDS: ATIVAN PO SCH (20:14)
[2021-12-01] MEDS: PRAVACHOL PO SCH (20:14)
[2021-12-02] MEDS: DUONEB NEB SCH ×4 (05:03→19:55)
[2021-12-02 05:12] LABS: BASOPHILS % (AUTO) 0.2 % (0.0-3.0); EOSINOPHILS % (AUTO) 0.4 % (0.0-7.0); HEMATOCRIT 40.5 % (42.0-52.0); HEMOGLOBIN 12.7 g/dl (14.0-18.0); IMMATURE GRANULOCYTE # (AUTO) 0.1 (0.0-1.0); IMMATURE GRANULOCYTE % (AUTO) 0.7 % (0.0-5.0); LYMPHOCYTES # (AUTO) 1.8 K/uL (0.60-3.4); MEAN CORPUSCULAR HGB CONC 31.4 (31.8-35.4); MEAN CORPUSCULAR VOLUME 98.8 fl (80.0-94.0); MONOCYTES # (AUTO) 0.9 K/uL (0.4-2.0); MONOCYTES % (AUTO) 9.4 (0-10); NEUTROPHILS # (AUTO) 6.4 K/ul (2.0-6.9); NEUTROPHILS % (AUTO) 69.3 % (42.2-75.2); PLATELET COUNT 249 10^3/uL (140-440); WHITE BLOOD COUNT 9.16 K/ul (4.2-10.2)
[2021-12-02 05:23] LABS: ALANINE AMINOTRANSFERASE 20.9 U/L (0-50); ALBUMIN 3.33 g/dL (3.5-5.0); ALKALINE PHOSPHATASE 61.3 U/L (56-119); ASPARTATE AMINO TRANSFERASE 35.8 U/L (17-59); BILIRUBIN,TOTAL 0.41 mg/dL (0.2-1.3); BLOOD UREA NITROGEN 24.3 mg/dL (9-20); CALCIUM 8.27 mg/dL (8.4-10.2); CHLORIDE 99.8 mmol/L (98-107); CREATININE 1.08 mg/dL (0.60-1.10); GLUCOSE 100.5 mg/dL (74-106); POTASSIUM 3.19 mmol/L (3.5-5.1); SODIUM 141.5 mmol/L (134.5-145); TOTAL PROTEIN 6.77 g/dL (6.3-8.2)
[2021-12-02 05:29] LABS: CARBON DIOXIDE 38.4 mmol/L (22-30.0)
[2021-12-02] MEDS: LASIX TAB PO SCH (05:33)
[2021-12-02] MEDS: PRILOSEC PO SCH (05:33)
[2021-12-02] MEDS: SYNTHROID PO SCH (05:33)
[2021-12-02] MEDS: FLOMAX PO SCH (08:12)
[2021-12-02] MEDS: ALDACTONE PO SCH (08:12)
[2021-12-02] MEDS: LEXAPRO PO SCH (08:12)
[2021-12-02] MEDS: GLUCOPHAGE PO SCH ×2 (08:12→17:17)
[2021-12-02] MEDS: COREG PO SCH ×2 (08:12→17:18)
[2021-12-02] MEDS: ZYLOPRIM PO SCH (08:12)
[2021-12-02] MEDS: DOXY-100 100 MG in SODIUM CHLORIDE 100ML 100 ML IV SCH ×2 (08:13→20:26)
[2021-12-02] MEDS: LOVENOX SUBCUT SCH (08:13)
[2021-12-02] MEDS ORDERED: K-DUR PO ONE (08:28)
--- NOTE | 2021-12-02 08:41 | PCM.PROG ---
Date Seen by Provider: 12/02/21 Time Seen by Provider: 08:35 Subjective: Patient reports that his breathing is improved a bit. He remains very weak and has poor appetite. Objective: Vitals: T=97.4 F, P=70, R=24, VX=731/82, SPO2=93 Patient is alert and in NAD. No respiratory distress. He appears to be very weak and tired. HEENT: [] Oral mucosa moist. Neck: [] Lungs: [] Mildly tachypneic. Breath tones equal but decreased bilaterally. CVS: [] RRR. No gallop. Mild peripheral edema. Abdomen: [] Soft, nontender. Extremities: [] Neurological: [] Patient answers questions appropriately. Skin: [] Lab/Tests/Diagnostic Imaging: [] (1) Acute exacerbation of CHF (congestive heart failure): Status: Acute Code(s): I50.9 - Heart failure, unspecified SNOMED Code(s): 462217706 Assessment: Stable. (2) Acute exacerbation of chronic bronchitis: Status: Acute Code(s): J20.9 - Acute bronchitis, unspecified; J42 - Unspecified chronic bronchitis SNOMED Code(s): 571927229 Assessment: Improving. (3) COPD with acute exacerbation: Status: Acute Code(s): J44.1 - Chronic obstructive pulmonary disease with (acute) exacerbation SNOMED Code(s): 831328985 Assessment: Improving (4) Generalized weakness: Status: Acute Code(s): R53.1 - Weakness SNOMED Code(s): 82183864 Assessment: PT and OT to evaluate. Patient may require swing bed stay prior to discharge or possibly [facility] admission. (5) Acute hypokalemia: Status: Acute Code(s): E87.6 - Hypokalemia SNOMED Code(s): 78480360 Assessment: Replace potassium. Morning potassium 3.1 Plan: Plans as above.
[2021-12-02] MEDS: SOLU-MEDROL 40 MG IVP SCH (10:00)
--- NOTE | 2021-12-02 10:51 | RS.OTINEVL ---
Subjective - Patient information Date of Evaluation: 12/02/21 Date of Arrival on Unit: 11/30/21 Admitted From:: Home Diagnosis: COPD exacerbation, CHF exacerbation, PRECAUTIONS: risk for falls Usual Living Arrangement: Alone Living Arrangement Comments: Pt does not drive anymore. Pt's niece comes by and brings him food on the way to school. Pt reports his step son comes by and brings him food. Pt does not have meals on wheels at this time but may call them. Home Environment: House Medical History: Hypertension, COPD, Diabetes, CHF Medical History Comments:: CHF, BPH, CHF, COPD, CKD, COR, DM type 2, Dyslipidemia, HTN, gout, Hypothyroidism, Insomnia, Obesity LATEX ALLERGY?: No Surgical History Comments:: skin CA, Medications: see chart Subjective Information/ Patient Comments:: "Just whatever I trap." "I could stand to lose a few pounds." - Level of function Prior to this admission, the patient could do the following:: Independent Selfcare, Independent Ambulation (pt amb short distances with rwx, pt states he sleeps in recliner) Abilities prior to this admission: Pt uses a RW at home and tries to take care of himself. Pt's niece and step son bring food. The niece helps with cleaning and cooking. Current Level of Function: Partially Dependent Current Equipment Used at Home: Walker, nebulizer, oxygen, BSC, Liftchair Pain Assessment - Pain Pain Aggravating Factors: Standing, Walking Pain Alleviating Factors: Position Change Interventions - Objective Patient Orientation: Person, Place, Time, Situation Current Interventions: IV's, Oxygen Observation: Pt sits and walks with flexed neck. Pt is able to lift head up but majority of the time he looks down. Pt is not able to reach his feet. Pt was able to complete toilet hygiene independently and pull his under huggins up. Pt requires verbal cues to complete tasks safely. Interventions - ROM Right Upper Extremity AROM: Slight limitation Left Upper Extremity AROM: Slight limitation - Strength Right Upper Extremity Strength: Mild Weakness Left Upper Extremity Strength: Mild Weakness - Sensation Right Upper Extremity Sensation: Intact/Normal Left Upper Extremity Sensation: Intact/Normal Balance - Sitting Balance Static Sitting Balance: Good Dynamic Sitting Balance: Good - Standing Balance Static Standing Balance: Poor Dynamic Standing Balance: Poor ADL Skills - Self Feeding Self Feeding: Set Up Only - Grooming Grooming: Min Assist Grooming Set-up: Sitting - Bathing Bathing UE: Min Assist Bathing LE: Mod Assist Bathing Set-up: Shower - Dressing Dressing UE: Min Assist Dressing LE: Mod Assist - Toilet Management Toilet Hygiene: Independent Toilet Clothing Management: Independent Functional Mobility - Bed Mobility Rolling R/L: Independent Scooting: Independent - Transfers Sit to Stand: CGA Stand to Sit: CGA Stand Pivot Transfers: CGA (Pt requires cues. ) - Ambulation Weight Bearing Status: FWB Assistive Device Used: Rolling Walker Assistance needed with Ambulation: CGA, 1 person assist - Safety Awareness Safety Awareness: Fair BOBY INDEX SCORE: . Additional Treatment Performed - Time with patient Length of Evaluation: 16 Total treatment time: 20 Activities Do you enjoy playing games?: No Would you be interested in leaving your room for activities?: Yes Would you enjoy group activities?: Yes Do you have difficulty with your vision?: Yes Patient Interests:: Watching Television Patient Education Patient Education: Education of diagnosis, Home Exercise Program, Education of Plan of Care Teaching Recipient: Patient Teaching Methods: Discussion Assessment Rehab Potential: Good Further Therapy Indicated?: Yes Evaluation Complexity: HISTORY: Medium, EXAM OF BODY SYSTEMS: Medium, CLINICAL DECISION MAKING: Medium Patient's Goal(s): To be able to take better care of himself. Pt to be able to walk better. Short Term Goals - Goals GOAL 1: Pt to tolerated sink level ADLS with SUP. Goal to be met by: 12/06/21 GOAL 2: Pt to increase activity tolerance to 10 minutes. Goal to be met by: 12/06/21 GOAL 3: Pt to increase BUE strength to 4/5. Goal to be met by: 12/06/21 GOAL 4: Pt to be Independent with BLE dressing. Goal to be met by: 12/06/21 Cloth Worker Goals GOAL 1: Pt to be independent with self care. Goal to be met by: 12/13/21 GOAL 2: Pt to increase BUE strength to 4+/5 Goal to be met by: 12/13/21 GOAL 3: Pt to increase functional transfers to Independent with RW. Goal to be met by: 12/13/21 Plan Plan of Care: Therapeutic EX, Therapeutic Activity, Self-Care/Home Management Frequency of Treatment: 1-2 X day, as tolerated Duration of Treatment: 2 Weeks Anticipated Discharge Destination: Home Treatment Diagnosis (ICD 10 Codes): Weakness R53.1, Z74.1Need for assistance with personal care Has the Physician been added for Co-signature?: Yes
--- NOTE | 2021-12-02 13:21 | RS.PTINEVL ---
Subjective - Patient information Date of Evaluation: 12/02/21 Date of Arrival on Unit: 11/30/21 Admitted From:: Home Diagnosis: COPD exacerbation, CHF exacerbation Usual Living Arrangement: Alone Living Arrangement Comments: pt's step son lives with him however he is out of town for work often. Has nieces which come in to help clean and do meals. Home Environment: House, Stairs (few), Rail Medical History: Hypertension, COPD, Diabetes, CHF, Arthritis Medical History Comments:: hypothyroidism, Gout, chronic cor pulmonale, skin CA. LATEX ALLERGY?: No Medications: see chart Subjective Information/ Patient Comments:: pt states that he is alone at home most of the time. pt reports that he takes his own showers and dresses himself. - Level of function Prior to this admission, the patient could do the following:: Independent Ambulation (short distances) Abilities prior to this admission: has a niece who assists with meals and cleaning. Current Level of Function: Partially Dependent Current Equipment Used at Home: rolling walker, nebulizer, oxygen, BSC, Liftchair Interventions - Objective Patient Orientation: Person, Place Current Interventions: IV's, Oxygen (2 liters), Telemetry Observation: pt with pitting edema BLE worse at feet. pt also with healing wound R lower leg. pt has wound R great toe where his toenail got pulled off. Range of Motion - ROM Right Upper Extremity AROM: WFL's Left Upper Extremity AROM: WFL's Right Lower Extremity AROM: Moderate limitation (limited hip and knee ext) Left Lower Extremity AROM: Moderate limitation (limited hip and knee ext) Muscle Strength - Muscle Strength Right Upper Extremity Strength: Mild Weakness (grossly 4-/5) Left Upper Extremity Strength: Mild Weakness (grossly 4-/5) Right Lower Extremity Strength: Mild Weakness (hip flex 4-/5, knee flex 4/5 ext 4-/5, ankle DF/PF 4/5) Left Lower Extremity Strength: Mild Weakness (hip flex 4-/5, knee flex 4/5 ext 4-/5, ankle DF/PF 4/5) Sensation - Sensation Right Upper Extremity Sensation: Intact/Normal Left Upper Extremity Sensation: Intact/Normal Right Lower Extremity Sensation: Impaired Left Lower Extremity Sensation: Impaired (n/t B feet) Palpation Palpation Findings: None/Normal Balance - Sitting Balance and Reactions Static Sitting Balance: Good Dynamic Sitting Balance: Fair - Standing Balance and Reactions Static Standing Balance: Poor Dynamic Standing Balance: Poor Functional Mobility - Transfers Sit to Stand: CGA Stand to Sit: CGA - Safety Awareness Safety Awareness: Good BOBY INDEX SCORE: n/a Ambulation - Ambulation Assistive Device Used: Rolling Walker Orthotic/Prosthetic Device: No Distance: 15ft x 2 Assistance needed with Ambulation: Min Assist Quality of Ambulation: min x 1 +1 for IV and O2 2 liters Gait Deviations: Wide Based gait, Forward posture, Short stride, Deviates from path Ambulation Comments: pt amb with BLE externally rotated, B feet with increased pronation. Factors Affecting Ambulation: Decreased Balance, Breathing/O2 Saturation, Weakness, Decreased Safety, Limited Endurance Treatment time - Time with patient Length of Evaluation: 19 Total treatment time: 26 Patient Education - Education Patient Education: Activity Modification, Education of Plan of Care Teaching Recipient: Patient Teaching Methods: Discussion (discussion regarding POC as well as home safety.) Assessment - Assessment Problem List:: Decreased level of function, Requires training/education, Decreased safety/Risk of falls, Weakness Rehab Potential: Fair Further Therapy Indicated?: Yes Candidate for Swing Bed for Therapy Services?: Feel pt may be a candidate for swing bed for therapy for a short stay with focus on safety with gait and transfers as well as strengthening to decrease fall risk. Evaluation Complexity: HISTORY: Medium, EXAM OF BODY SYSTEMS: Medium, CLINICAL PRESENTATION: Medium, CLINICAL DECISION MAKING: Medium Patient's Goal(s): "go back home" Short Term Goals GOAL #1: pt transfer sup to/from sit CGA Goal to be met by: 12/04/21 GOAL #2: Transfer sit to/from stand CGA to SBA Goal to be met by: 12/04/21 GOAL #3: pt amb 50ft with rwx with CGA x 1 with improved posture. Goal to be met by: 12/04/21 GOAL #4: Improve BLE Strength 4 to 4+/5 Goal to be met by: 12/04/21 GOAL #5: . Senior Living Goals GOAL #1: Transfer sit to/from stand SBA Goal to be met by: 12/06/21 GOAL #2: pt amb with rwx with O2 functional household distances with SBA Goal to be met by: 12/06/21 GOAL #3: pt ascend/descend 2-3 steps with HR CGA Goal to be met by: 12/06/21 Plan Plan of Care: Therapeutic EX, Neuromuscular Re-Educ, Therapeutic Activity Other:: gait training Frequency of Treatment: 1-2 X day, as tolerated Duration of Treatment: 5 days Anticipated Discharge Destination: Home Treatment Diagnosis (ICD 10 Codes): impaired balance R 26.81. difficulty walking R 26.2. risk of falls Z91.81 Has the Physician been added for Co-signature?: Yes
--- NOTE | 2021-12-02 16:22 | RS.SLPCNOT ---
Speech Case Note Date of Note: 12/02/21 Title: Speech consult Note: Discussed consult with RN. She reported he is consuming thin liquids without deficits and has minimal appetite. NURSE'S AIDES TEACHER will continue to monitor for potential evaluation. Thank you for this consult.
[2021-12-02] MEDS: HUMULIN R SUBCUT PRN (17:18)
[2021-12-02] MEDS: PULMICORT 1 MG/2 ML NEB SCH (19:55)
[2021-12-02] MEDS: ATIVAN PO SCH (20:26)
[2021-12-02] MEDS: PRAVACHOL PO SCH (20:26)
[2021-12-03 04:50] LABS: BASOPHILS % (AUTO) 0.5 % (0.0-3.0); EOSINOPHILS % (AUTO) 0.5 % (0.0-7.0); HEMATOCRIT 40.2 % (42.0-52.0); HEMOGLOBIN 12.4 g/dl (14.0-18.0); IMMATURE GRANULOCYTE # (AUTO) 0.1 (0.0-1.0); IMMATURE GRANULOCYTE % (AUTO) 1.1 % (0.0-5.0); LYMPHOCYTES # (AUTO) 1.8 K/uL (0.60-3.4); LYMPHOCYTES % (AUTO) 21.2 (10.0-50.0); MEAN CORPUSCULAR HEMOGLOBIN 30.6 pg (27.0-31.0); MEAN CORPUSCULAR HGB CONC 30.8 (31.8-35.4); MEAN CORPUSCULAR VOLUME 99.3 fl (80.0-94.0); MONOCYTES # (AUTO) 0.6 K/uL (0.4-2.0); MONOCYTES % (AUTO) 7.5 (0-10); NEUTROPHILS # (AUTO) 5.9 K/ul (2.0-6.9); NEUTROPHILS % (AUTO) 69.2 % (42.2-75.2); PLATELET COUNT 251 10^3/uL (140-440); RDW COEFFICIENT OF VARIATION 14.2 % (11.6-14.8); RED BLOOD COUNT 4.05 10^6/ul (4.70-6.10); WHITE BLOOD COUNT 8.54 K/ul (4.2-10.2)
[2021-12-03 05:02] LABS: ALANINE AMINOTRANSFERASE 18.8 U/L (0-50); ALBUMIN 3.3 g/dL (3.5-5.0); ALKALINE PHOSPHATASE 52.5 U/L (56-119); ASPARTATE AMINO TRANSFERASE 38.9 U/L (17-59); BILIRUBIN,TOTAL 0.48 mg/dL (0.2-1.3); BLOOD UREA NITROGEN 29.9 mg/dL (9-20); CALCIUM 7.86 mg/dL (8.4-10.2); CHLORIDE 98.7 mmol/L (98-107); CREATININE 0.97 mg/dL (0.60-1.10); GLUCOSE 94.4 mg/dL (74-106); POTASSIUM 3.74 mmol/L (3.5-5.1); SODIUM 141.6 mmol/L (134.5-145); TOTAL PROTEIN 6.76 g/dL (6.3-8.2)
[2021-12-03 05:09] VITALS: BP 99/57; TEMP 96.6
[2021-12-03] MEDS: DUONEB NEB SCH ×2 (05:19→09:50)
[2021-12-03] MEDS: LASIX TAB PO SCH (05:33)
[2021-12-03] MEDS: SYNTHROID PO SCH (05:34)
[2021-12-03] MEDS: PRILOSEC PO SCH (05:34)
[2021-12-03] MEDS ORDERED: K-DUR PO ONE (08:00)
[2021-12-03] MEDS: LEXAPRO PO SCH (08:28)
[2021-12-03] MEDS: LOVENOX SUBCUT SCH (08:28)
[2021-12-03] MEDS: ZYLOPRIM PO SCH (08:28)
[2021-12-03] MEDS: GLUCOPHAGE PO SCH (08:28)
[2021-12-03] MEDS: SOLU-MEDROL 40 MG IVP SCH (08:28)
[2021-12-03] MEDS: FLOMAX PO SCH (08:29)
[2021-12-03] MEDS: ALDACTONE PO SCH (08:29)
[2021-12-03] MEDS: COREG PO SCH (08:29)
[2021-12-03] MEDS: DOXY-100 100 MG in SODIUM CHLORIDE 100ML 100 ML IV SCH ×2 (08:52→09:07)
[2021-12-03] MEDS ORDERED: DOXYCYCLINE HYCLATE PO SCH (09:30)
== END 2021-12-03 10:50 | disposition swing bed (61) | DRG 192 ==
LOC: ED 12:28 → MEDSURG A 14:59
PROVIDERS: ADMIT Emergency Medicine; ATTEND Emergency Medicine
DX: N40.0 Benign prostatic hyperplasia without lower urinary tract symptoms; E78.5 Hyperlipidemia, unspecified; E11.65 Type 2 diabetes mellitus with hyperglycemia; J20.9 Acute bronchitis, unspecified; J44.1 Chronic obstructive pulmonary disease with (acute) exacerbation; E66.01 Morbid (severe) obesity due to excess calories; R63.0 Anorexia; Z79.899 Other long term (current) drug therapy; Z20.822 Contact with and (suspected) exposure to COVID-19; E87.6 Hypokalemia; R53.1 Weakness; I27.81 Cor pulmonale (chronic); D51.9 Vitamin B12 deficiency anemia, unspecified; I50.9 Heart failure, unspecified

== ENCOUNTER 2022-02-08 11:54 | Inpatient (IN) ==
[2022-02-08] MEDS ORDERED: SOLU-MEDROL 125 MG IVP STA (12:05)
[2022-02-08] MEDS ORDERED: DUONEB NEB STA (12:05)
[2022-02-08] MEDS ORDERED: SODIUM CHLORIDE 500 ML IV STA (12:12)
[2022-02-08 12:13] LABS: ABG O2 HGB 89.9 % (95-100); BEecf 8.8 (-2.0-3.0); COHb 2.8 (0.5-1.5); MetHb 0.9 (0-1.5); TCO2 33.3 (19-24); tHb 14.8 g/dl (11.7-17.4)
[2022-02-08 12:32] LABS: BASOPHILS % (AUTO) 0.2 % (0.0-3.0); EOSINOPHILS % (AUTO) 0.2 % (0.0-7.0); HEMATOCRIT 42.8 % (42.0-52.0); HEMOGLOBIN 13.4 g/dl (14.0-18.0); IMMATURE GRANULOCYTE % (AUTO) 0.2 % (0.0-5.0); LYMPHOCYTES # (AUTO) 1.1 K/uL (0.60-3.4); LYMPHOCYTES % (AUTO) 8.7 (10.0-50.0); MEAN CORPUSCULAR HEMOGLOBIN 31.5 pg (27.0-31.0); MEAN CORPUSCULAR HGB CONC 31.3 (31.8-35.4); MEAN CORPUSCULAR VOLUME 100.7 fl (80.0-94.0); MONOCYTES # (AUTO) 0.8 K/uL (0.4-2.0); MONOCYTES % (AUTO) 6.5 (0-10); NEUTROPHILS # (AUTO) 10.6 K/ul (2.0-6.9); NEUTROPHILS % (AUTO) 84.2 % (42.2-75.2); PLATELET COUNT 195 10^3/uL (140-440); RDW COEFFICIENT OF VARIATION 14.1 % (11.6-14.8); RED BLOOD COUNT 4.25 10^6/ul (4.70-6.10); WHITE BLOOD COUNT 12.56 K/ul (4.2-10.2)
[2022-02-08 12:42] LABS: ALANINE AMINOTRANSFERASE 13.2 U/L (0-50); ALBUMIN 3.93 g/dL (3.5-5.0); ALKALINE PHOSPHATASE 62.8 U/L (56-119); BILIRUBIN,TOTAL 1.65 mg/dL (0.2-1.3); BLOOD UREA NITROGEN 16.2 mg/dL (9-20); CALCIUM 8.58 mg/dL (8.4-10.2); CARBON DIOXIDE 32.4 mmol/L (22-30.0); CREATININE 0.91 mg/dL (0.60-1.10); GLUCOSE 166.2 mg/dL (74-106); POTASSIUM 3.48 mmol/L (3.5-5.1); SODIUM 139.5 mmol/L (134.5-145); TOTAL PROTEIN 7.12 g/dL (6.3-8.2)
[2022-02-08 12:47] LABS: MOLECULAR FLU A NEGATIVE BY NAAT (NEGATIVE); MOLECULAR FLU B NEGATIVE BY NAAT (NEGATIVE)
--- NOTE | 2022-02-08 12:49 | CT ---
EXAM: CT chest without contrast. HISTORY: Short of breath, wheezing. COMPARISON: Radiograph 11/30/2021. CT 01/15/2021, 06/27/2018. TECHNIQUE: Multiple axial images of the chest were obtained without intravenous contrast. Images we re reformatted in the sagittal and coronal planes. FINDINGS: Limited assessment for lymphadenopathy without contrast. The heart size is normal. Coron sierra artery and aortic calcifications present. Trace pericardial effusion. Nodular consolidation in both lower lobes, new from prior chest CT. Previously noted spiculated nodu lar density anterior left upper lobe has nearly resolved. There is focal band-like opacity in the me dial left upper lobe on axial image 22 in this area currently. Lungs otherwise grossly clear. Mild emphysema. No pleural effusion or pneumothorax identified. No acute abnormality in the upper abdomen. Hepatic and renal cysts noted. Degenerative changes present throughout the spine. IMPRESSION: 1. Bilateral lower lobe consolidation consistent with pneumonia. Follow-up recommended within 3 mon ths to confirm resolution. 2. Probable left upper lobe scarring in the area of the previous spiculated nodule. This can be arthur ssessed on follow-up. All CT scans are performed using dose optimization techniques as appropriate to the performed exam an d include at least one of the following: Automated exposure control, adjustment of the mA and/or kV according t o size, and the use of iterative reconstruction technique.
[2022-02-08 12:53] LABS: TROPONIN I 0.013 ng/ml (0.0000-0.120)
[2022-02-08] MEDS ORDERED: DUONEB NEB ONE (13:27)
[2022-02-08] MEDS ORDERED: ROCEPHIN 1 GM/50 ML D5W 1 GM/50 ML BAG IV ONE (15:05)
[2022-02-08] MEDS ORDERED: ZITHROMAX PO ONE (15:11)
[2022-02-08 17:52] VITALS: BMI 28.9
[2022-02-08] MEDS: ALBUTEROL 0.083% NEB NEB SCH ×2 (17:58→23:09)
[2022-02-08] MEDS ORDERED: ULTRAM PO PRN (18:12)
[2022-02-08] MEDS ORDERED: SPIRONOLACTONE 25 MG PO SCH (18:15)
[2022-02-08] MEDS ORDERED: PRILOSEC PO SCH (18:30)
[2022-02-08] MEDS ORDERED: GLUCOPHAGE PO SCH (18:30)
[2022-02-08] MEDS: FLOMAX PO SCH (18:42)
[2022-02-08] MEDS: ZYLOPRIM PO SCH (18:45)
[2022-02-08] MEDS: LEXAPRO PO SCH (18:45)
[2022-02-08] MEDS: SYNTHROID PO SCH (18:46)
[2022-02-08] MEDS: SODIUM CHLORIDE 1,000 ML IV SCH (19:27)
[2022-02-08] MEDS: PRAVACHOL PO SCH (20:58)
[2022-02-08] MEDS: ATIVAN PO SCH (20:58)
[2022-02-08] MEDS: SOLU-CORTEF 100 MG IVP SCH (20:58)
[2022-02-08] MEDS ORDERED: BUDESONIDE NEB SCH (21:00)
[2022-02-08] MEDS ORDERED: K-DUR PO SCH (21:00)
[2022-02-09] MEDS: ALBUTEROL 0.083% NEB NEB SCH ×4 (04:55→23:00)
[2022-02-09] MEDS: SOLU-CORTEF 100 MG IVP SCH ×3 (05:00→21:53)
[2022-02-09 05:18] LABS: BASOPHILS % (AUTO) 0.1 % (0.0-3.0); HEMATOCRIT 40.2 % (42.0-52.0); HEMOGLOBIN 12.5 g/dl (14.0-18.0); IMMATURE GRANULOCYTE % (AUTO) 0.3 % (0.0-5.0); LYMPHOCYTES # (AUTO) 0.9 K/uL (0.60-3.4); LYMPHOCYTES % (AUTO) 7.3 (10.0-50.0); MEAN CORPUSCULAR HEMOGLOBIN 31.6 pg (27.0-31.0); MEAN CORPUSCULAR HGB CONC 31.1 (31.8-35.4); MEAN CORPUSCULAR VOLUME 101.5 fl (80.0-94.0); MONOCYTES # (AUTO) 0.6 K/uL (0.4-2.0); MONOCYTES % (AUTO) 4.6 (0-10); NEUTROPHILS # (AUTO) 10.5 K/ul (2.0-6.9); NEUTROPHILS % (AUTO) 87.7 % (42.2-75.2); PLATELET COUNT 180 10^3/uL (140-440); RED BLOOD COUNT 3.96 10^6/ul (4.70-6.10); WHITE BLOOD COUNT 11.97 K/ul (4.2-10.2)
[2022-02-09 05:24] LABS: ALANINE AMINOTRANSFERASE 12.5 U/L (0-50); ALBUMIN 3.6 g/dL (3.5-5.0); ALKALINE PHOSPHATASE 50.1 U/L (56-119); ASPARTATE AMINO TRANSFERASE 20.6 U/L (17-59); BILIRUBIN,TOTAL 0.89 mg/dL (0.2-1.3); CALCIUM 8.62 mg/dL (8.4-10.2); CARBON DIOXIDE 33.8 mmol/L (22-30.0); CHLORIDE 102.8 mmol/L (98-107); CREATININE 0.87 mg/dL (0.60-1.10); GLUCOSE 156.3 mg/dL (74-106); POTASSIUM 3.88 mmol/L (3.5-5.1); SODIUM 140.1 mmol/L (134.5-145); TOTAL PROTEIN 6.81 g/dL (6.3-8.2)
[2022-02-09] MEDS: ZYLOPRIM PO SCH (09:20)
[2022-02-09] MEDS: LASIX TAB PO SCH (09:21)
[2022-02-09] MEDS: LEXAPRO PO SCH (09:21)
[2022-02-09] MEDS: GLUCOPHAGE PO SCH (09:21)
[2022-02-09] MEDS: SYNTHROID PO SCH (09:22)
[2022-02-09] MEDS: ALDACTONE PO SCH (09:23)
[2022-02-09] MEDS: FLOMAX PO SCH (09:24)
[2022-02-09] MEDS: K-DUR PO SCH ×2 (09:24→16:21)
[2022-02-09] MEDS: ZITHROMAX PO SCH (09:24)
[2022-02-09] MEDS: PRILOSEC PO SCH (09:25)
[2022-02-09] MEDS: SODIUM CHLORIDE 1,000 ML IV SCH (09:28)
[2022-02-09] MEDS: ROCEPHIN 1 GM/50 ML D5W 1 GM/50 ML BAG IV SCH (09:28)
[2022-02-09] MEDS: PRAVACHOL PO SCH (20:46)
[2022-02-09] MEDS: ATIVAN PO SCH (20:46)
[2022-02-10] MEDS: ALBUTEROL 0.083% NEB NEB SCH ×4 (04:55→23:50)
[2022-02-10 05:21] LABS: BASOPHILS % (AUTO) 0.1 % (0.0-3.0); HEMATOCRIT 38.5 % (42.0-52.0); IMMATURE GRANULOCYTE % (AUTO) 0.4 % (0.0-5.0); LYMPHOCYTES # (AUTO) 1.2 K/uL (0.60-3.4); LYMPHOCYTES % (AUTO) 10.9 (10.0-50.0); MEAN CORPUSCULAR HEMOGLOBIN 31.4 pg (27.0-31.0); MEAN CORPUSCULAR HGB CONC 31.2 (31.8-35.4); MEAN CORPUSCULAR VOLUME 100.8 fl (80.0-94.0); MONOCYTES # (AUTO) 0.6 K/uL (0.4-2.0); MONOCYTES % (AUTO) 5.4 (0-10); NEUTROPHILS # (AUTO) 9.3 K/ul (2.0-6.9); NEUTROPHILS % (AUTO) 83.2 % (42.2-75.2); PLATELET COUNT 199 10^3/uL (140-440); RDW COEFFICIENT OF VARIATION 14.2 % (11.6-14.8); RED BLOOD COUNT 3.82 10^6/ul (4.70-6.10); WHITE BLOOD COUNT 11.22 K/ul (4.2-10.2)
[2022-02-10 05:37] LABS: ALANINE AMINOTRANSFERASE 17.4 U/L (0-50); ALBUMIN 3.45 g/dL (3.5-5.0); ASPARTATE AMINO TRANSFERASE 30.7 U/L (17-59); BILIRUBIN,TOTAL 0.51 mg/dL (0.2-1.3); BLOOD UREA NITROGEN 22.4 mg/dL (9-20); CALCIUM 8.54 mg/dL (8.4-10.2); CARBON DIOXIDE 32.7 mmol/L (22-30.0); CHLORIDE 102.3 mmol/L (98-107); CREATININE 0.93 mg/dL (0.60-1.10); GLUCOSE 174.5 mg/dL (74-106); POTASSIUM 3.61 mmol/L (3.5-5.1); SODIUM 139.7 mmol/L (134.5-145); TOTAL PROTEIN 6.6 g/dL (6.3-8.2)
[2022-02-10] MEDS: SOLU-CORTEF 100 MG IVP SCH ×3 (05:42→21:13)
[2022-02-10] MEDS: PRILOSEC PO SCH (05:51)
[2022-02-10] MEDS: LASIX TAB PO SCH (05:51)
[2022-02-10] MEDS: SYNTHROID PO SCH (05:51)
[2022-02-10] MEDS: GLUCOPHAGE PO SCH (09:28)
[2022-02-10] MEDS: ALDACTONE PO SCH (09:28)
[2022-02-10] MEDS: ZYLOPRIM PO SCH (09:28)
[2022-02-10] MEDS: ROCEPHIN 1 GM/50 ML D5W 1 GM/50 ML BAG IV SCH (09:28)
[2022-02-10] MEDS: K-DUR PO SCH ×2 (09:28→17:14)
[2022-02-10] MEDS: ZITHROMAX PO SCH (09:28)
[2022-02-10] MEDS: LEXAPRO PO SCH (09:28)
[2022-02-10] MEDS: FLOMAX PO SCH (09:28)
--- NOTE | 2022-02-10 10:40 | PCM.PROG ---
Attending Provider: ATTENDING PROVIDER: Dr. MACKENZIE FUENTES MD This patient is seen with Lizette Latham, Nurse Practitioner. DATE OF SERVICE: 02/10/22 SUBJECTIVE: This 86 year old /WHITE M was hospitalized 02/08/22. Shortness of breath has improved this morning. Eating well. Up to the restroom on his own. REVIEW OF SYSTEMS: CONSTITUTIONAL: No night sweats. No fatigue, malaise, lethargy. No fever or chills. Weakness. HEENT: Eyes: No visual changes. No eye pain. No eye discharge. ENT: No runny nose. No epistaxis. No sinus pain. No odynophagia. No congestion. RESPIRATORY: Cough, no congestion. No hemoptysis. Shortness of breath.Wheezing. CARDIOVASCULAR: No angina symptoms. No CHF symptoms. No atypical chest pain for CAD. No palpitations. No orthopnea.. GASTROINTESTINAL: No abdominal pain. No nausea or vomiting. No diarrhea or constipation. No hematemesis. No hematochezia. GENITOURINARY: No urgency. No frequency. No dysuria. No hematuria. No obstructive symptoms. No discharge. No pain. No significant abnormal bleeding. MUSCULOSKELETAL: No musculoskeletal pain; no joint swelling. NEUROLOGICAL: Awake, alert, oriented to time, place and person. No headache. No neck pain. No syncope. No seizures. No dizziness. PSYCHIATRIC: Not anxious. No depression. No suicidal thoughts. No homicidal thoughts. SKIN: No rash. No lesions. No wounds. ENDOCRINE: No unexplained weight loss. No weight gain. HEMATOLOGIC/LYMPHATIC: No anemia. No purpura. No petechiae. No prolonged or excessive bleeding. No palpable lymph nodes. PHYSICAL EXAMINATION: GENERAL: The patient is awake, alert and oriented, sitting in bed in no distress. VITAL SIGNS: Temperature 98.0 F, Pulse 78, Respiratory Rate 20, BP 110/74, Pulse Ox 95% HEENT: Head normocephalic, atraumatic. Eyes: Extraocular muscles are intact. Pupils are equal, round and reactive to light and accommodation. Ears: No lesions. Nose appeared normal. Throat: No exudate or erythema. NECK: Supple. No JVD, no carotid bruit. No lymphadenopathy or thyromegaly. LUNGS: Bilateral wheezing and rhonchi Clear to auscultation. Percussion note normal. Chest symmetrical. HEART: S1, S2, no S3. No murmurs. No cyanosis or clubbing. No ascites. Pulses: Dorsalis pedis and posterior tibial pulses +1 to +2 both sides. ABDOMEN: Soft. Non-tender. Bowel sounds active. No CVA tenderness. No mass felt. EXTREMITIES: +1 Leg edema. Full range of motion of all extremities, equal. NEUROLOGIC: No focal deficit. Cranial nerves II through XII are grossly intact. No headache. No double vision. SKIN: Not dry. Intact. Turgor-normal. LYMPHATIC: No palpable lymph nodes/no lymphedema. MUSCULOSKELETAL: Normal joints with no swelling. Muscle tone is normal. LAB REVIEW: 02/10/22 05:13 02/10/22 05:13 02/10/22 05:13: Sodium 139.7, Potassium 3.61, Chloride 102.3, Carbon Dioxide 32.7 H, Anion Gap 8.31, BUN 22.4 H, Creatinine 0.93, Estimated GFR (MDRD) 77.00, BUN/Creatinine Ratio 24.08, Glucose 174.5 H, Calcium 8.54, Total Bilirubin 0.51, AST 30.7, ALT 17.4, Alkaline Phosphatase 52.0 L, Total Protein 6.60, Albumin 3.45 L, Globulin 3.15, Albumin/Globulin Ratio 1.09 02/10/22 05:13: WBC 11.22 H, RBC 3.82 L, Hgb 12.0 L, Hct 38.5 L, MCV 100.8 H, MCH 31.4 H, MCHC 31.2 L, RDW Coeff of Leonardo 14.2, Plt Count 199, Immature Gran % (Auto) 0.4, Neut % (Auto) 83.2 H, Lymph % (Auto) 10.9, Sterling % (Auto) 5.4, Eos % (Auto) 0.0, Baso % (Auto) 0.1, Neut # (Auto) 9.3 H, Lymph # (Auto) 1.2, Sterling # (Auto) 0.6, Eos # (Auto) 0.0, Baso # (Auto) 0.0, Immature Gran # (Auto) 0.0 ASSESSMENT: Please see below. 1. Bilateral pneumonia 2. Acute respiratory failure 3. Bilateral leg edema 4. COPD 5. Diabetes Mellitus type II PLAN: 1. Discontinue IV fluids 2. Continue IV antibiotics and steroids. Plan and coordination of the patient's care discussed in the presence of Senior Test Analyst and nurse. SCRIBED BY: Mauro REDDY scribed while in presence of service performed by Dr. Fuentes/Lizette Latham APRN on 02/10/22 ([id number])
[2022-02-10] MEDS: SODIUM CHLORIDE 1,000 ML IV SCH (13:04)
--- NOTE | 2022-02-10 14:49 | HP ---
DATE OF SERVICE: 02/08/22 REASON FOR HOSPITALIZATION: Pneumonia HISTORY OF PRESENT ILLNESS: 86 year old white male was brought to the emergency room by family because of shortness of breath, poor appetite. The patient was seen and examined in the ER by ER attending and was noted to have bilateral pneumonia by CT scan of the chest and respiratory failure with pO2 of 55, pCo2 41 with pH 7.50 with 91% saturation. The patient has history of chronic lung disease and congestive heart failure. PAST MEDICAL HISTORY/PAST SURGICAL HISTORY: History of severe chronic lung disease Congestive heart failure Bilateral dependent leg edema Hypothyroidism Diabetes Mellitus type II BPH Generalized osteoarthritis Gastroesophageal reflux disease REVIEW OF SYSTEMS: CONSTITUTIONAL: No night sweats. Fatigue and weakness. No fever or chills. HEENT: Eyes: No visual changes. No eye pain. No eye discharge. ENT: No runny nose. No epistaxis. No sinus pain. No sore throat. No odynophagia. No ear pain. No congestion. RESPIRATORY: Mild cough, no congestion. No hemoptysis. Shortness of breath on minimal exertion. CARDIOVASCULAR: No angina symptoms. No CHF symptoms. No atypical chest pain for CAD. No palpitations. No PND. No orthopnea. GASTROINTESTINAL: No abdominal pain. No nausea or vomiting. No diarrhea or constipation. No hematemesis. No hematochezia. Appetite is not up to par. GENITOURINARY: No urgency. No frequency. No dysuria. No hematuria. No obstructive symptoms. No discharge. No pain. No significant abnormal bleeding. MUSCULOSKELETAL: No musculoskeletal pain. No joint swelling. No arthritis. Generalized weakness. NEUROLOGICAL: No headache. No neck pain. No syncope. No seizures. No dizziness. PSYCHIATRIC: Not anxious. No depression. No suicidal thoughts. No homicidal thoughts. SKIN: No rash. No lesions. No wounds. ENDOCRINE: No unexplained weight loss. No weight gain. HEMATOLOGIC/LYMPHATIC: No anemia. No purpura. No petechiae. No prolonged or excessive bleeding. No palpable lymph nodes. PERSONAL/FAMILY/SOCIAL HISTORY: The patient is a . He is being taken care of by family on the lady that he used to live with. Unable to do most of the activity of daily living but able to feed himself and ambulate with some help. Needs assistance in the bathing. Nonsmoker. No alcohol abuse. MEDICATIONS: DUO NEB nebulizer QID PRN Allopurinol 200mg PO daily Spirolactone 25mg PO daily Pravastatin 40mg PO daily Pulmicort NEB at bedtime PRN Levothyroxine 100mcg PO daily Metformin 500mg PO daily Tamsulosin 0.4mg daily Prednisone 5mg daily Furosemide 40mg PO daily Lexapro 20mg PO daily Tramadol 50mg PO twice a day Lorazepam 1mg at bedtime Omeprazole 40mg QAM ALLERGIES: None. PHYSICAL EXAMINATION: GENERAL: The patient is oriented to time, place and person, no distress at rest. VITAL SIGNS: Temperature 98.2, pulse 80, respiratory 18, blood pressure 130/80 and pulse ox 93% with 2 liters. HEENT: Head normocephalic, atraumatic. Eyes: Extraocular muscles are intact. Pupils are equal, round and reactive to light and accommodation. Ears: No lesions. Nose appeared normal. Throat: No exudate or erythema. NECK: Supple. No JVD, no carotid bruit. No lymphadenopathy or thyromegaly. LUNGS: Decreased breath sounds with few crepitations, bilaterally. Clear to auscultation. Percussion note normal. Chest symmetrical. HEART: S1, S2, no S3 distant. No murmur. No cyanosis or clubbing. No ascites. Pulses: Dorsalis pedis and posterior tibial pulses +1 to +2 bilaterally. ABDOMEN: Soft. Nontender. Bowel sounds active. No CVA tenderness. No mass felt. EXTREMITIES: No edema. Full range of motion of all extremities, equal. NEUROLOGIC: No focal deficit. Cranial nerves II through XII are grossly intact. No headache, no double vision or headache. SKIN: Not dry. Intact. Turgor - normal. LYMPHATIC: No palpable lymph nodes/no lymphedema. MUSCULOSKELETAL: Normal joints with no swelling. Muscle tone is normal. LABS: Hgb 15.4, hct 42, WBC 12,000 normal differential, creatinine 0.9, BUN 16, potassium 3.48, glucose 166, PROBNP 252, ABG O2 55, pCO2 41, pH 7.50 with 91% saturation on 2 liters. ASSESSMENT: 1. Bilateral pneumonia with acute respiratory failure 2. History of chronic respiratory failure 3. Severe chronic lung disease 4. History of congestive heart failure 5. Bilateral leg edema, dependent 6. Depression 7. Diabetes Mellitus 8. History of hypertension 9. Dyslipidemia 10.Hypothyroidism 11.Obesity PLAN: 1. Admit the patient 2. Elevate the legs 3. Continue all the medications as before 4. Rocephin and Zithromax antibiotics to be given as ordered 5. Solu-Cortef 100mg Q 8 hours 6. Continue NEBS treatment 7. DUO NEBS QID 8. Oxygen 2-3 liters 9. Telemetry orders CONDITION: Seems to be stable for now. PROGNOSIS: Guarded The patient is DNR. TIME SPENT: More than 70 minutes. MTDD
--- NOTE | 2022-02-10 15:28 | RS.OTINEVL ---
Subjective - Patient information Date of Evaluation: 02/10/22 Date of Arrival on Unit: 02/08/22 Admitted From:: Home Diagnosis: Pneumonia PRECAUTIONS: O2 , falls Usual Living Arrangement: with adult step son Living Arrangement Comments: step son lives with him but is out of town for work often. Pt's assisted partner lived in home until her passing. Home Environment: House, Stairs (few), Rail Medical History: Hypertension, COPD, Diabetes, CHF, Arthritis Medical History Comments:: hypothyroidism, gout, skin CA, Chronic cor pulmonale LATEX ALLERGY?: No Surgical History Comments:: skin CA, Medications: see chart Subjective Information/ Patient Comments:: "I am not driving anymore." "VJ takes care of that." - Level of function Prior to this admission, the patient could do the following:: Independent Ambulation (short distances) Abilities prior to this admission: Pt reports he was walking in his home and he tries to walk without an assistive device. Pt reports VJ helps him with cooking, cleaning, and showering. Current Level of Function: Partially Dependent Current Equipment Used at Home: oxygen, neb machine, walker, raised toilet seat, BSC Pain Assessment - Pain Pain Score: 0 Interventions - Objective Patient Orientation: Person, Place, Situation Current Interventions: IV's, Oxygen, Telemetry Observation: Pt is weak and plops down in the chair after he transfers. Pt is not always safe with transfers. Pt is able to sit EOB to eat his breakfast. Pt has full AROM of BUE. Pt has SOA with activity. Interventions - ROM Right Upper Extremity AROM: WFL's Left Upper Extremity AROM: WFL's - Strength Right Upper Extremity Strength: Mild Weakness Left Upper Extremity Strength: Mild Weakness - Sensation Right Upper Extremity Sensation: Intact/Normal Left Upper Extremity Sensation: Intact/Normal Balance - Sitting Balance Static Sitting Balance: Fair Dynamic Sitting Balance: Fair - Standing Balance Static Standing Balance: Poor Dynamic Standing Balance: Poor ADL Skills - Self Feeding Self Feeding: Independent - Grooming Grooming: Min Assist - Bathing Bathing UE: CGA, 1 person assist Bathing LE: Mod Assist, 1 person assist Bathing Set-up: Shower - Dressing Dressing UE: Min Assist, 1 person assist Dressing LE: Max Assist, 1 person assist - Toilet Management Toilet Hygiene: Independent Toilet Clothing Management: CGA, 1 person assist Functional Mobility - Bed Mobility Rolling R/L: CGA Scooting: CGA Supine to Sit: Min Assist - Transfers Sit to Stand: Min Assist, 1 person assist Stand to Sit: Min Assist, 1 person assist Stand Pivot Transfers: Min Assist, 1 person assist - Ambulation Weight Bearing Status: FWB Assistive Device Used: Rolling Walker Assistance needed with Ambulation: Min Assist - Safety Awareness Safety Awareness: Fair BOBY INDEX SCORE: . Additional Treatment Performed - Time with patient Length of Evaluation: 17 Total treatment time: 20 Activities Do you enjoy playing games?: No Would you be interested in leaving your room for activities?: Yes Would you enjoy group activities?: Yes Do you have difficulty with your vision?: Yes What types of things do you enjoy doing? Any Hobbies?: TV, Visiting Patient Education Patient Education: Education of diagnosis, Home Exercise Program, Education of Plan of Care Teaching Recipient: Patient Teaching Methods: Discussion Assessment Problem List:: Decreased level of function, Requires training/education, Decreased safety/Risk of falls, Weakness Rehab Potential: Good Further Therapy Indicated?: Yes Evaluation Complexity: HISTORY: Medium, EXAM OF BODY SYSTEMS: Medium, CLINICAL DECISION MAKING: Medium Patient's Goal(s): To be able to breathe better and do more ADLs for himself. Short Term Goals - Goals GOAL 1: Pt to tolerate sink level ADLS with SUP Goal to be met by: 02/13/22 GOAL 2: Pt to increase activity tolerance to 10 mins Goal to be met by: 02/13/22 GOAL 3: Pt to increase strength to 4/5 Goal to be met by: 02/13/22 GOAL 4: Pt to increase dyn. std. bal. to Fair. Goal to be met by: 02/13/22 Snf Goals GOAL 1: Pt to increase activity tolerance to 15 minutes with rests. Goal to be met by: 02/15/22 GOAL 2: Pt to increase strength to 4+/5. Goal to be met by: 02/15/22 GOAL 3: Pt to increase dyn. std. bal. to Fair +. Goal to be met by: 02/15/22 Plan Plan of Care: Therapeutic EX, Therapeutic Activity, Self-Care/Home Management Frequency of Treatment: 1-2 X day, as tolerated Duration of Treatment: 1 Week Anticipated Discharge Destination: Home Treatment Diagnosis (ICD 10 Codes): Weakness M62.81, Z74.1 Need for assistance with personal care Has the Physician been added for Co-signature?: Yes
--- NOTE | 2022-02-10 16:29 | RS.PTINEVL ---
Subjective - Patient information Date of Evaluation: 02/10/22 Date of Arrival on Unit: 02/08/22 Admitted From:: Home Diagnosis: pneumonia Usual Living Arrangement: with adult step son Home Environment: House, Stairs (few), Rail Medical History: Hypertension, COPD, Diabetes, CHF, Arthritis Medical History Comments:: hypothyroidism, CKD, gout Medications: see chart Subjective Information/ Patient Comments:: pt states that he is ready to try to get up into chair. - Level of function Prior to this admission, the patient could do the following:: Independent Ambulation (short distances) Current Level of Function: Partially Dependent Current Equipment Used at Home: oxygen, neb machine, walker, raised toilet seat, BSC Interventions - Objective Patient Orientation: Person, Place, Time Current Interventions: IV's, Oxygen, Telemetry Observation: pt with pitting edema Vick GUERRERO's. Forward head posture with limited cervical ROM Range of Motion - ROM Right Upper Extremity AROM: WFL's Left Upper Extremity AROM: WFL's Right Lower Extremity AROM: WFL's Left Lower Extremity AROM: WFL's Muscle Strength - Muscle Strength Right Upper Extremity Strength: Mild Weakness (grossly 4/5) Left Upper Extremity Strength: Mild Weakness (grossly 4/5) Right Lower Extremity Strength: Mild Weakness (hip flex 4/5, knee flex/ext 4/5 ankle DF/PF 4/5) Left Lower Extremity Strength: Mild Weakness (hip flex 4/5, knee flex/ext 4/5 a nkle DF/PF 4/5) Sensation - Sensation Right Upper Extremity Sensation: Intact/Normal Left Upper Extremity Sensation: Intact/Normal Right Lower Extremity Sensation: Impaired Left Lower Extremity Sensation: Impaired Comments: n/t in B feet Palpation Palpation Findings: Tenderness Comments:: Vick GUERRERO tender to palpation Balance - Sitting Balance and Reactions Static Sitting Balance: Fair (fair+) Dynamic Sitting Balance: Fair - Standing Balance and Reactions Static Standing Balance: Poor Dynamic Standing Balance: Poor Functional Mobility - Bed Mobility Supine to Sit: Mod Assist, 1 person assist - Transfers Sit to Stand: Min Assist, 1 person assist Stand to Sit: Min Assist, 1 person assist - Safety Awareness Safety Awareness: Fair BOBY INDEX SCORE: n/a Ambulation - Ambulation Assistive Device Used: Rolling Walker Orthotic/Prosthetic Device: No Distance: 5ft to chair Assistance needed with Ambulation: Min Assist Gait Deviations: Wide Based gait, Forward posture, Short stride Ambulation Comments: pt did not wish to amb further this visit. He states he just wants to sit in his chair. Factors Affecting Ambulation: Decreased Balance, Breathing/O2 Saturation, Weakness, Decreased Safety, Cognitive Status, Limited Endurance Treatment time - Time with patient Length of Evaluation: 18 Total treatment time: 23 Patient Education - Education Patient Education: Activity Modification, Education of Plan of Care Teaching Recipient: Patient Teaching Methods: Discussion Comments: discussion regarding POC and home safety Assessment - Assessment Problem List:: Decreased level of function, Requires training/education, Decreased safety/Risk of falls, Weakness, Cognitive status limits abilities Rehab Potential: Good Further Therapy Indicated?: Yes Evaluation Complexity: HISTORY: Medium, EXAM OF BODY SYSTEMS: Medium, CLINICAL PRESENTATION: Medium, CLINICAL DECISION MAKING: Medium Patient's Goal(s): Get stronger so I can go home. Short Term Goals GOAL #1: pt demonstrate rolling in bed independent Goal to be met by: 02/12/22 GOAL #2: Transfer sup to/from sit CGA Goal to be met by: 02/12/22 GOAL #3: Transfer sit to/from stand CGA Goal to be met by: 02/12/22 GOAL #4: pt amb with rwx 100ft with CGA with no LOB. Goal to be met by: 02/12/22 GOAL #5: Improve BLE Strength 4 to 4+/5 Goal to be met by: 02/12/22 GOAL #6: . Snf Goals GOAL #1: pt transfer sup to/from sit to/from stand independently Goal to be met by: 02/14/22 GOAL #2: pt amb with rwx with O2 functional household distances independently Goal to be met by: 02/14/22 GOAL #3: Ascend/descend 2-3 steps w HR CGA Goal to be met by: 02/14/22 Plan Plan of Care: Therapeutic EX, Therapeutic Activity Other:: gait training Frequency of Treatment: 1-2 X day, as tolerated Duration of Treatment: 5 days Anticipated Discharge Destination: Home Treatment Diagnosis (ICD 10 Codes): impaired balance R 26.81. difficulty walking R 26.2. weakness M62.81 Has the Physician been added for Co-signature?: Yes
[2022-02-10 18:54] LABS: RSV MOLECULAR NEGATIVE BY NAAT (NEGATIVE)
[2022-02-10] MEDS: ATIVAN PO SCH (20:37)
[2022-02-10] MEDS: PRAVACHOL PO SCH (20:38)
[2022-02-11] MEDS: ALBUTEROL 0.083% NEB NEB SCH ×4 (04:50→23:05)
[2022-02-11 05:14] LABS: BASOPHILS % (AUTO) 0.1 % (0.0-3.0); HEMATOCRIT 39.2 % (42.0-52.0); HEMOGLOBIN 12.1 g/dl (14.0-18.0); IMMATURE GRANULOCYTE # (AUTO) 0.1 (0.0-1.0); IMMATURE GRANULOCYTE % (AUTO) 0.6 % (0.0-5.0); LYMPHOCYTES # (AUTO) 0.9 K/uL (0.60-3.4); LYMPHOCYTES % (AUTO) 10.9 (10.0-50.0); MEAN CORPUSCULAR HEMOGLOBIN 31.4 pg (27.0-31.0); MEAN CORPUSCULAR HGB CONC 30.9 (31.8-35.4); MEAN CORPUSCULAR VOLUME 101.8 fl (80.0-94.0); MONOCYTES # (AUTO) 0.5 K/uL (0.4-2.0); MONOCYTES % (AUTO) 6.1 (0-10); NEUTROPHILS # (AUTO) 6.9 K/ul (2.0-6.9); NEUTROPHILS % (AUTO) 82.3 % (42.2-75.2); PLATELET COUNT 209 10^3/uL (140-440); RDW COEFFICIENT OF VARIATION 14.2 % (11.6-14.8); RED BLOOD COUNT 3.85 10^6/ul (4.70-6.10); WHITE BLOOD COUNT 8.38 K/ul (4.2-10.2)
[2022-02-11] MEDS: SYNTHROID PO SCH (05:30)
[2022-02-11] MEDS: LASIX TAB PO SCH (05:30)
[2022-02-11] MEDS: PRILOSEC PO SCH (05:31)
[2022-02-11 05:32] LABS: ALANINE AMINOTRANSFERASE 28.9 U/L (0-50); ALBUMIN 3.42 g/dL (3.5-5.0); ALKALINE PHOSPHATASE 48.6 U/L (56-119); ASPARTATE AMINO TRANSFERASE 40.6 U/L (17-59); BILIRUBIN,TOTAL 0.45 mg/dL (0.2-1.3); BLOOD UREA NITROGEN 20.3 mg/dL (9-20); CALCIUM 8.31 mg/dL (8.4-10.2); CHLORIDE 102.6 mmol/L (98-107); POTASSIUM 3.95 mmol/L (3.5-5.1); SODIUM 141.3 mmol/L (134.5-145); TOTAL PROTEIN 6.51 g/dL (6.3-8.2)
[2022-02-11] MEDS: SOLU-CORTEF 100 MG IVP SCH ×3 (05:35→20:16)
[2022-02-11] MEDS ORDERED: ZITHROMAX 500 MG in SODIUM CHLORIDE 250 ML IV SCH (09:00)
[2022-02-11] MEDS: K-DUR PO SCH ×2 (09:21→16:54)
[2022-02-11] MEDS: ROCEPHIN 1 GM/50 ML D5W 1 GM/50 ML BAG IV SCH (09:21)
[2022-02-11] MEDS: GLUCOPHAGE PO SCH (09:21)
[2022-02-11] MEDS: FLOMAX PO SCH (09:21)
[2022-02-11] MEDS: LEXAPRO PO SCH (09:21)
[2022-02-11] MEDS: ALDACTONE PO SCH (09:21)
[2022-02-11] MEDS: ZYLOPRIM PO SCH (09:21)
--- NOTE | 2022-02-11 10:50 | PCM.PROG ---
Attending Provider: ATTENDING PROVIDER: Dr. MACKENZIE FUENTES MD This patient is seen with Lizette Latham, Nurse Practitioner. DATE OF SERVICE: 02/11/22 SUBJECTIVE: This 86 year old /WHITE M was hospitalized 02/08/22. The patient is resting comfortably. The coughing and congestion has improved. He is afebrile. Shortness of breath improved. Will attempt to wean IV steroids. REVIEW OF SYSTEMS: CONSTITUTIONAL: Weakness. No night sweats. No fatigue, malaise, lethargy. No fever or chills. HEENT: Eyes: No visual changes. No eye pain. No eye discharge. ENT: No runny nos e. No epistaxis. No sinus pain. No odynophagia. No congestion. RESPIRATORY: Cough. No hemoptysis. Shortness of breath. CARDIOVASCULAR: No angina symptoms. No CHF symptoms. No atypical chest pain for CAD. No palpitations. No orthopnea.. GASTROINTESTINAL: No abdominal pain. No nausea or vomiting. No diarrhea or constipation. No hematemesis. No hematochezia. GENITOURINARY: No urgency. No frequency. No dysuria. No hematuria. No obstructive symptoms. No discharge. No pain. No significant abnormal bleeding. MUSCULOSKELETAL: No musculoskeletal pain; no joint swelling. NEUROLOGICAL: Awake, alert, oriented to time, place and person. No headache. No neck pain. No syncope. No seizures. No dizziness. PSYCHIATRIC: Not anxious. No depression. No suicidal thoughts. No homicidal thoughts. SKIN: No rash. No lesions. No wounds. ENDOCRINE: No unexplained weight loss. No weight gain. HEMATOLOGIC/LYMPHATIC: No anemia. No purpura. No petechiae. No prolonged or excessive bleeding. No palpable lymph nodes. PHYSICAL EXAMINATION: GENERAL: The patient is awake, alert and oriented, lying/sitting in bed in no distress. VITAL SIGNS: Temperature 97.4 F, Pulse 78, Respiratory Rate 20, BP 112/75, Pulse Ox 97% HEENT: Head normocephalic, atraumatic. Eyes: Extraocular muscles are intact. Pupils are equal, round and reactive to light and accommodation. Ears: No lesions. Nose appeared normal. Throat: No exudate or erythema. NECK: Supple. No JVD, no carotid bruit. No lymphadenopathy or thyromegaly. LUNGS: Diminished breath sounds with bilateral rhonchi. Percussion note normal. Chest symmetrical. HEART: S1, S2, no S3. No murmurs. No cyanosis or clubbing. No ascites. Pulses: Dorsalis pedis and posterior tibial pulses +1 to +2 both sides. ABDOMEN: Soft. Non-tender. Bowel sounds active. No CVA tenderness. No mass felt. EXTREMITIES: +1 bilateral leg edema. Full range of motion of all extremities, equal. NEUROLOGIC: No focal deficit. Cranial nerves II through XII are grossly intact. No headache. No double vision. SKIN: Not dry. Intact. Turgor-normal. LYMPHATIC: No palpable lymph nodes/no lymphedema. MUSCULOSKELETAL: Normal joints with no swelling. Muscle tone is normal. LAB REVIEW: 02/11/22 05:03 02/11/22 05:03 02/11/22 05:03: Sodium 141.3, Potassium 3.95, Chloride 102.6, Carbon Dioxide 36.0 H, Anion Gap 6.65, BUN 20.3 H, Creatinine 1.00, Estimated GFR (MDRD) 71.00, BUN/Creatinine Ratio 20.30, Glucose 151.0 H, Calcium 8.31 L, Total Bilirubin 0.45, AST 40.6, ALT 28.9, Alkaline Phosphatase 48.6 L, Total Protein 6.51, Albumin 3.42 L, Globulin 3.09, Albumin/Globulin Ratio 1.10 02/11/22 05:03: WBC 8.38, RBC 3.85 L, Hgb 12.1 L, Hct 39.2 L, MCV 101.8 H, MCH 31.4 H, MCHC 30.9 L, RDW Coeff of Leonardo 14.2, Plt Count 209, Immature Gran % (Auto) 0.6, Neut % (Auto) 82.3 H, Lymph % (Auto) 10.9, [place] % (Auto) 6.1, Eos % (Auto) 0.0, Baso % (Auto) 0.1, Neut # (Auto) 6.9, Lymph # (Auto) 0.9, [place] # (Auto) 0.5, Eos # (Auto) 0.0, Baso # (Auto) 0.0, Immature Gran # (Auto) 0.1 02/10/22 18:11: RSV Antigen Negative by naat 02/10/22 05:13: TSH 0.810 02/10/22 05:13: Free T4 1.17 ASSESSMENT: Please see below. 1. Bilateral pneumonia 2. Acute respiratory failure 3. Bilateral leg edema 4. COPD 5. Diabetes Mellitus type II PLAN: 1. Start Prednisone tomorrow 20 mg b.i.d. 2. D/C IV steroids after today's last dose. 3. Start Zithromax 500 mg IV daily times three days. Plan and coordination of the patient's care discussed in the presence of [employer] Associate and nurse. CONDITION: Stable SCRIBED BY: JOCELINE VINSON Hospital Unit Coordinator scribed while in presence of service performed by Dr. Fuentes/Lizette Latham APRN on 02/11/22 ([id number])
[2022-02-11] MEDS: ATIVAN PO SCH (20:15)
[2022-02-11] MEDS: PRAVACHOL PO SCH (20:16)
[2022-02-12] MEDS: ALBUTEROL 0.083% NEB NEB SCH ×4 (04:40→23:50)
[2022-02-12 05:14] LABS: BASOPHILS % (AUTO) 0.2 % (0.0-3.0); HEMATOCRIT 40.7 % (42.0-52.0); HEMOGLOBIN 12.8 g/dl (14.0-18.0); IMMATURE GRANULOCYTE # (AUTO) 0.1 (0.0-1.0); LYMPHOCYTES # (AUTO) 1.6 K/uL (0.60-3.4); LYMPHOCYTES % (AUTO) 18.2 (10.0-50.0); MEAN CORPUSCULAR HEMOGLOBIN 31.8 pg (27.0-31.0); MEAN CORPUSCULAR HGB CONC 31.4 (31.8-35.4); MONOCYTES # (AUTO) 0.6 K/uL (0.4-2.0); MONOCYTES % (AUTO) 6.9 (0-10); NEUTROPHILS # (AUTO) 6.6 K/ul (2.0-6.9); NEUTROPHILS % (AUTO) 73.7 % (42.2-75.2); PLATELET COUNT 224 10^3/uL (140-440); RED BLOOD COUNT 4.03 10^6/ul (4.70-6.10); WHITE BLOOD COUNT 8.99 K/ul (4.2-10.2)
[2022-02-12 05:25] LABS: ALANINE AMINOTRANSFERASE 29.8 U/L (0-50); ALBUMIN 3.68 g/dL (3.5-5.0); ALKALINE PHOSPHATASE 55.4 U/L (56-119); ASPARTATE AMINO TRANSFERASE 30.5 U/L (17-59); BILIRUBIN,TOTAL 0.44 mg/dL (0.2-1.3); BLOOD UREA NITROGEN 20.3 mg/dL (9-20); CALCIUM 8.5 mg/dL (8.4-10.2); CHLORIDE 102.6 mmol/L (98-107); CREATININE 0.93 mg/dL (0.60-1.10); GLUCOSE 159.5 mg/dL (74-106); POTASSIUM 3.89 mmol/L (3.5-5.1); SODIUM 139.9 mmol/L (134.5-145); TOTAL PROTEIN 6.81 g/dL (6.3-8.2)
[2022-02-12] MEDS: LASIX TAB PO SCH (05:46)
[2022-02-12] MEDS: PRILOSEC PO SCH (05:46)
[2022-02-12] MEDS: SYNTHROID PO SCH (05:46)
[2022-02-12] MEDS ORDERED: PREDNISONE PO SCH (08:00)
[2022-02-12] MEDS: LEXAPRO PO SCH (08:54)
[2022-02-12] MEDS: K-DUR PO SCH ×2 (08:54→17:13)
[2022-02-12] MEDS: GLUCOPHAGE PO SCH (08:54)
[2022-02-12] MEDS: PREDNISONE PO SCH ×2 (08:54→17:14)
[2022-02-12] MEDS: ALDACTONE PO SCH (08:55)
[2022-02-12] MEDS: ROCEPHIN 1 GM/50 ML D5W 1 GM/50 ML BAG IV SCH (08:55)
[2022-02-12] MEDS: ZYLOPRIM PO SCH (08:55)
[2022-02-12] MEDS: FLOMAX PO SCH (08:55)
--- NOTE | 2022-02-12 09:34 | PN ---
DATE OF SERVICE: 02/10/22 SUBJECTIVE: 86 year old white male hospitalized with pneumonia and respiratory failure. The patient's condition is improving. He is on antibiotics, steroids and NEBS. He is feeling better, appetite has improved. The patient was seen and examined with Nurse Practitioner. TIME SPENT: More than 30 minutes. Plan and coordination of the patient's care discussed in the presence of nurse. KENTRELL
--- NOTE | 2022-02-12 13:30 | PN ---
DATE OF SERVICE: 02/08/22 ADMIT NOTE SUBJECTIVE: The patient came to the emergency room with cough, congestion and shortness of breath. THe patient had pO2 of 56 with pCo2 of 41 with pH of 7.50. The patient was in acute respiratory failure. On CT scan the patient had bilateral pneumonia. The patient was COVID negative, Influenza negative. The patient is going to be hospitalized with diagnosis of pneumonia and he is going to be treated with Rocephin and Zithromax. Steroids are going to be given. He is going to be continued on the rest of the medications. The patient's main problem is chronic lung disease, chronic leg edema, congestive heart failure and BMI of nearly 30. The patient is DNR. TIME SPENT: More than 30 minutes. Plan and coordination of the patient's care discussed in the presence of nurse. KENTRELL
[2022-02-12] MEDS: KEFLEX PO SCH (20:14)
[2022-02-12] MEDS: ATIVAN PO SCH (20:14)
[2022-02-12] MEDS: PRAVACHOL PO SCH (20:14)
[2022-02-13] MEDS: ALBUTEROL 0.083% NEB NEB SCH ×4 (04:49→23:10)
[2022-02-13 05:22] LABS: BASOPHILS % (AUTO) 0.1 % (0.0-3.0); HEMOGLOBIN 11.9 g/dl (14.0-18.0); IMMATURE GRANULOCYTE # (AUTO) 0.1 (0.0-1.0); IMMATURE GRANULOCYTE % (AUTO) 0.7 % (0.0-5.0); LYMPHOCYTES # (AUTO) 1.3 K/uL (0.60-3.4); LYMPHOCYTES % (AUTO) 13.9 (10.0-50.0); MEAN CORPUSCULAR HEMOGLOBIN 30.7 pg (27.0-31.0); MEAN CORPUSCULAR HGB CONC 30.5 (31.8-35.4); MEAN CORPUSCULAR VOLUME 100.8 fl (80.0-94.0); MONOCYTES # (AUTO) 0.6 K/uL (0.4-2.0); MONOCYTES % (AUTO) 6.3 (0-10); NEUTROPHILS # (AUTO) 7.6 K/ul (2.0-6.9); PLATELET COUNT 195 10^3/uL (140-440); RDW COEFFICIENT OF VARIATION 14.1 % (11.6-14.8); RED BLOOD COUNT 3.87 10^6/ul (4.70-6.10); WHITE BLOOD COUNT 9.62 K/ul (4.2-10.2)
[2022-02-13] MEDS: SYNTHROID PO SCH (05:30)
[2022-02-13] MEDS: PRILOSEC PO SCH (05:30)
[2022-02-13] MEDS: LASIX TAB PO SCH (05:30)
[2022-02-13] MEDS: KEFLEX PO SCH ×3 (05:30→21:14)
[2022-02-13 05:36] LABS: ALANINE AMINOTRANSFERASE 24.5 U/L (0-50); ALBUMIN 3.46 g/dL (3.5-5.0); ALKALINE PHOSPHATASE 47.4 U/L (56-119); BILIRUBIN,TOTAL 0.44 mg/dL (0.2-1.3); BLOOD UREA NITROGEN 22.8 mg/dL (9-20); CALCIUM 8.44 mg/dL (8.4-10.2); CARBON DIOXIDE 37.2 mmol/L (22-30.0); CHLORIDE 99.9 mmol/L (98-107); CREATININE 0.96 mg/dL (0.60-1.10); GLUCOSE 144.9 mg/dL (74-106); POTASSIUM 4.27 mmol/L (3.5-5.1); SODIUM 137.9 mmol/L (134.5-145); TOTAL PROTEIN 6.43 g/dL (6.3-8.2)
[2022-02-13] MEDS: GLUCOPHAGE PO SCH (09:22)
[2022-02-13] MEDS: FLOMAX PO SCH (09:22)
[2022-02-13] MEDS: LEXAPRO PO SCH (09:22)
[2022-02-13] MEDS: ZYLOPRIM PO SCH (09:22)
[2022-02-13] MEDS: ALDACTONE PO SCH (09:22)
[2022-02-13] MEDS: PREDNISONE PO SCH ×2 (09:23→18:02)
[2022-02-13] MEDS: K-DUR PO SCH ×2 (09:23→18:02)
--- NOTE | 2022-02-13 09:23 | DI ---
EXAM: PA and lateral views of the chest HISTORY: Cough. COMPARISON: Chest x-ray 11/30/2021 FINDINGS: The cardiomediastinal silhouette is normal. Lungs are hyperinflated with linear basilar o pacities. There is no pneumothorax or pleural effusion. There is no suspicious pulmonary nodule. T here is multilevel degenerative disease. IMPRESSION: Hyperinflated lungs suggestive of chronic obstructive pulmonary disease with linear basi lar opacities and may represent fibrosis versus atelectasis
[2022-02-13] MEDS ORDERED: DECADRON IM ONE (11:42)
--- NOTE | 2022-02-13 11:42 | PCM.PROG ---
Attending Provider: ATTENDING PROVIDER: Dr. MACKENZIE FUENTES MD This patient is seen with Lizette Latham, Nurse Practitioner. DATE OF SERVICE: 02/13/22 SUBJECTIVE: This 86 year old /WHITE M was hospitalized 02/08/22. Transitioned to oral Prednisone, having some more wheezing. Has been eating well and no fever. REVIEW OF SYSTEMS: CONSTITUTIONAL: No night sweats. Fatigue. No fever or chills. Weakness. HEENT: Eyes: No visual changes. No eye pain. No eye discharge. ENT: No runny nose. No epistaxis. No sinus pain. No odynophagia. No congestion. RESPIRATORY: Cough, no congestion. No hemoptysis. Shortness of breath. CARDIOVASCULAR: No angina symptoms. No CHF symptoms. No atypical chest pain for CAD. No palpitations. No orthopnea.. GASTROINTESTINAL: No abdominal pain. No nausea or vomiting. No diarrhea or constipation. No hematemesis. No hematochezia. GENITOURINARY: No urgency. No frequency. No dysuria. No hematuria. No obstructive symptoms. No discharge. No pain. No significant abnormal bleeding. MUSCULOSKELETAL: No musculoskeletal pain; no joint swelling. NEUROLOGICAL: Awake, alert, oriented to time, place and person. No headache. No neck pain. No syncope. No seizures. No dizziness. PSYCHIATRIC: Not anxious. No depression. No suicidal thoughts. No homicidal thoughts. SKIN: No rash. No lesions. No wounds. ENDOCRINE: No unexplained weight loss. No weight gain. HEMATOLOGIC/LYMPHATIC: No anemia. No purpura. No petechiae. No prolonged or excessive bleeding. No palpable lymph nodes. PHYSICAL EXAMINATION: GENERAL: The patient is awake, alert and oriented, sitting in bed in no distress. VITAL SIGNS: Temperature 97.8 F, Pulse 77, Respiratory Rate 16, BP 111/70, Pulse Ox 95% HEENT: Head normocephalic, atraumatic. Eyes: Extraocular muscles are intact. Pupils are equal, round and reactive to light and accommodation. Ears: No lesions. Nose appeared normal. Throat: No exudate or erythema. NECK: Supple. No JVD, no carotid bruit. No lymphadenopathy or thyromegaly. LUNGS: Diminished breath sounds. Bilateral wheezing. Rales left lower lobe. Clear to auscultation. Percussion note normal. Chest symmetrical. HEART: S1, S2, no S3. No murmurs. No cyanosis or clubbing. No ascites. Pulses: Dorsalis pedis and posterior tibial pulses +1 to +2 both sides. ABDOMEN: Soft. Non-tender. Bowel sounds active. No CVA tenderness. No mass felt. EXTREMITIES: No edema. Full range of motion of all extremities, equal. NEUROLOGIC: No focal deficit. Cranial nerves II through XII are grossly intact. No headache. No double vision. SKIN: Not dry. Intact. Turgor-normal. LYMPHATIC: No palpable lymph nodes/no lymphedema. MUSCULOSKELETAL: Normal joints with no swelling. Muscle tone is normal. LAB REVIEW: 02/13/22 05:15 02/13/22 05:15 02/13/22 05:15: Sodium 137.9, Potassium 4.27, Chloride 99.9, Carbon Dioxide 37.2 H, Anion Gap 5.07, BUN 22.8 H, Creatinine 0.96, Estimated GFR (MDRD) 74.00, BUN/Creatinine Ratio 23.75, Glucose 144.9 H, Calcium 8.44, Total Bilirubin 0.44, AST 26.0, ALT 24.5, Alkaline Phosphatase 47.4 L, Total Protein 6.43, Albumin 3.46 L, Globulin 2.97, Albumin/Globulin Ratio 1.16 02/13/22 05:15: WBC 9.62, RBC 3.87 L, Hgb 11.9 L, Hct 39.0 L, MCV 100.8 H, MCH 30.7, MCHC 30.5 L, RDW Coeff of Leonardo 14.1, Plt Count 195, Immature Gran % (Auto) 0.7, Neut % (Auto) 79.0 H, Lymph % (Auto) 13.9, [place] % (Auto) 6.3, Eos % (Auto) 0.0, Baso % (Auto) 0.1, Neut # (Auto) 7.6 H, Lymph # (Auto) 1.3, [place] # (Auto) 0.6, Eos # (Auto) 0.0, Baso # (Auto) 0.0, Immature Gran # (Auto) 0.1 ASSESSMENT: Please see below. 1. Bilateral pneumonia 2. COPD 3. Generalized weakness 4. Leg edema PLAN: 1. Redone chest x-ray today 2. Continue NEBS 3. 2mg Decadron IM 4. Pulmicort NEB 0.5 BID Plan and coordination of the patient's care discussed in the presence of Release Specialist and nurse. SCRIBED BY: Mauro REDDY scribed while in presence of service performed by Dr. Fuentes/Lizette Latham APRN on 02/13/22 ([id number])
[2022-02-13] MEDS: PULMICORT 0.5 MG/2 ML NEB SCH (18:12)
[2022-02-13] MEDS: PRAVACHOL PO SCH (21:14)
[2022-02-13] MEDS: ATIVAN PO SCH (21:15)
[2022-02-14] MEDS: ALBUTEROL 0.083% NEB NEB SCH ×4 (04:50→23:20)
[2022-02-14] MEDS: PULMICORT 0.5 MG/2 ML NEB SCH ×2 (04:50→16:55)
[2022-02-14] MEDS: SYNTHROID PO SCH (05:35)
[2022-02-14] MEDS: LASIX TAB PO SCH (05:35)
[2022-02-14] MEDS: PRILOSEC PO SCH (05:35)
[2022-02-14] MEDS: KEFLEX PO SCH ×3 (05:35→20:57)
[2022-02-14 05:36] LABS: BASOPHILS % (AUTO) 0.1 % (0.0-3.0); HEMATOCRIT 38.9 % (42.0-52.0); IMMATURE GRANULOCYTE # (AUTO) 0.1 (0.0-1.0); LYMPHOCYTES # (AUTO) 1.2 K/uL (0.60-3.4); MEAN CORPUSCULAR HEMOGLOBIN 31.3 pg (27.0-31.0); MEAN CORPUSCULAR HGB CONC 30.8 (31.8-35.4); MEAN CORPUSCULAR VOLUME 101.3 fl (80.0-94.0); MONOCYTES # (AUTO) 0.5 K/uL (0.4-2.0); MONOCYTES % (AUTO) 4.8 (0-10); NEUTROPHILS % (AUTO) 83.1 % (42.2-75.2); PLATELET COUNT 228 10^3/uL (140-440); RED BLOOD COUNT 3.84 10^6/ul (4.70-6.10); WHITE BLOOD COUNT 10.77 K/ul (4.2-10.2)
[2022-02-14 05:51] LABS: ALANINE AMINOTRANSFERASE 29.4 U/L (0-50); ALBUMIN 3.53 g/dL (3.5-5.0); ALKALINE PHOSPHATASE 48.3 U/L (56-119); BILIRUBIN,TOTAL 0.41 mg/dL (0.2-1.3); BLOOD UREA NITROGEN 25.6 mg/dL (9-20); CALCIUM 8.33 mg/dL (8.4-10.2); CARBON DIOXIDE 35.4 mmol/L (22-30.0); CHLORIDE 99.4 mmol/L (98-107); CREATININE 0.85 mg/dL (0.60-1.10); GLUCOSE 187.1 mg/dL (74-106); POTASSIUM 4.66 mmol/L (3.5-5.1); TOTAL PROTEIN 6.51 g/dL (6.3-8.2)
[2022-02-14] MEDS: GLUCOPHAGE PO SCH (08:59)
[2022-02-14] MEDS: LEXAPRO PO SCH (08:59)
[2022-02-14] MEDS: ALDACTONE PO SCH (09:00)
[2022-02-14] MEDS: ZYLOPRIM PO SCH (09:00)
[2022-02-14] MEDS: K-DUR PO SCH (09:00)
[2022-02-14] MEDS: FLOMAX PO SCH (09:00)
[2022-02-14] MEDS: PREDNISONE PO SCH ×2 (09:00→17:44)
--- NOTE | 2022-02-14 10:05 | PN ---
DATE OF SERVICE: 02/12/22 SUBJECTIVE: 86 year old white male hospitalized with pneumonia, bilateral with respiratory failure. The patient's condition has steadily improved. He is feeling better. His oxygen saturation on 2 liters 95%. REVIEW OF SYSTEMS: CONSTITUTIONAL: No night sweats. No fatigue, malaise, lethargy. No fever or chills. HEENT: Eyes: No visual changes. No eye pain. No eye discharge. ENT: No runny nose. No epistaxis. No sinus pain. No sore throat. No odynophagia. No congestion. RESPIRATORY: No cough, no congestion. No hemoptysis. No shortness of breath. Breathing better. CARDIOVASCULAR: No angina symptoms. No CHF symptoms. No atypical chest pain for CAD. No palpitations. No PND. No orthopnea. GASTROINTESTINAL: No abdominal pain. No nausea or vomiting. No diarrhea or constipation. No hematemesis. No hematochezia. Appetite has improved. GENITOURINARY: No urgency. No frequency. No dysuria. No hematuria. No obstructive symptoms. No discharge. No pain. No significant abnormal bleeding. MUSCULOSKELETAL: No musculoskeletal pain; no joint swelling. NEUROLOGICAL: No headache. No neck pain. No syncope. No seizures. No dizziness. PSYCHIATRIC: Not anxious. No depression. No suicidal thoughts. No homicidal thoughts. SKIN: No rash. No lesions. No wounds. ENDOCRINE: No unexplained weight loss. No weight gain. HEMATOLOGIC/LYMPHATIC: No anemia. No purpura. No petechiae. No prolonged or excessive bleeding. No palpable lymph nodes. PHYSICAL EXAMINATION: VITAL SIGNS: Temperature 97.5, pulse 76, respiratory rate 18, blood pressure 119/77 and pulse ox 95%. HEENT: Head normocephalic, atraumatic. Eyes: Extraocular muscles are intact. Pupils are equal, round and reactive to light and accommodation. Ears: No lesions. Nose appeared normal. Throat: No exudate or erythema. NECK: Supple. No JVD, no carotid bruit. No lymphadenopathy or thyromegaly. LUNGS: Decreased breath sounds but clear to auscultation. Percussion note normal. Chest symmetrical. HEART: S1, S2, no S3. No murmurs. No cyanosis or clubbing. No ascites. Pulses: Dorsalis pedis and posterior tibial pulses +1 to +2 bilaterally. ABDOMEN: Soft. Nontender. Bowel sounds active. No CVA tenderness. No mass felt. EXTREMITIES: No edema. Full range of motion of all extremities, equal. NEUROLOGIC: No focal deficit. Cranial nerves II through XII are grossly intact. No headache. No double vision. SKIN: Not dry. Intact. Turgor - normal. LYMPHATIC: No palpable lymph nodes/no lymphedema. MUSCULOSKELETAL: Normal joints with no swelling. Muscle tone is normal. LABS: Hgb 12.6, hct 40.7 normal differential, creatinine 0.9, BUN 20, potassium 3.8 ASSESSMENT: 1. Bilateral pneumonia with respiratory failure seems to be resolving. PLAN: 1. Continue antibiotics, Keflex 2. Will discontinue IV antibiotics 3. Will discontinue telemetry 4. Continue steroids and NEBS 5. Condition is improving likely discharge date tomorrow. TIME SPENT: More than 30 minutes. Plan and coordination of the patient's care discussed in the presence of nurse. KENTRELL
--- NOTE | 2022-02-14 10:11 | PN ---
DATE OF SERVICE: 02/11/22 SUBJECTIVE: 86 year old white male hospitalized with double pneumonia and respiratory failure. The patient condition has steadily improved. He is afebrile, less short of breath. PHYSICAL EXAMINATION: HEENT: Head normocephalic, atraumatic. Eyes: Extraocular muscles are intact. Pupils are equal, round and reactive to light and accommodation. Ears: No lesions. Nose appeared normal. Throat: No exudate or erythema. NECK: Supple. No JVD, no carotid bruit. No lymphadenopathy or thyromegaly. LUNGS: More air entry. Clear to auscultation. Percussion note normal. Chest symmetrical. HEART: S1, S2, no S3. No murmurs. No cyanosis or clubbing. No ascites. Pulses: Dorsalis pedis and posterior tibial pulses +1 to +2 bilaterally. ABDOMEN: Soft. Nontender. Bowel sounds active. No CVA tenderness. No mass felt. EXTREMITIES: Leg edema much less. Full range of motion of all extremities, equal. NEUROLOGIC: No focal deficit. Cranial nerves II through XII are grossly intact. No headache. No double vision. SKIN: Not dry. Intact. Turgor - normal. LYMPHATIC: No palpable lymph nodes/no lymphedema. MUSCULOSKELETAL: Normal joints with no swelling. Muscle tone is normal. Condition: Improving. The patient was seen and examined with the Nurse Practitioner. PLAN: 1. Continue antibiotics and steroids. TIME SPENT: More than 30 minutes. Plan and coordination of the patient's care discussed in the presence of nurse. KENTRELL
[2022-02-14 13:56] LABS: ABG O2 HGB 94.2 % (95-100); BEecf 9.7 (-2.0-3.0); COHb 0.8 (0.5-1.5); HCO3 32.7 (21-28); MetHb 0.6 (0-1.5); tHb 13.3 g/dl (11.7-17.4)
[2022-02-14 13:58] LABS: ABG PH 7.51 (7.35-7.45)
[2022-02-14] MEDS: PRAVACHOL PO SCH (20:57)
[2022-02-14] MEDS: ATIVAN PO SCH (20:58)
[2022-02-15] MEDS: ALBUTEROL 0.083% NEB NEB SCH ×2 (04:50→11:01)
[2022-02-15] MEDS: PULMICORT 0.5 MG/2 ML NEB SCH (04:50)
[2022-02-15 05:14] LABS: BASOPHILS % (AUTO) 0.1 % (0.0-3.0); EOSINOPHILS % (AUTO) 0.1 % (0.0-7.0); HEMATOCRIT 40.5 % (42.0-52.0); HEMOGLOBIN 12.5 g/dl (14.0-18.0); IMMATURE GRANULOCYTE # (AUTO) 0.1 (0.0-1.0); IMMATURE GRANULOCYTE % (AUTO) 1.3 % (0.0-5.0); LYMPHOCYTES # (AUTO) 1.2 K/uL (0.60-3.4); MEAN CORPUSCULAR HEMOGLOBIN 30.9 pg (27.0-31.0); MEAN CORPUSCULAR HGB CONC 30.9 (31.8-35.4); MONOCYTES # (AUTO) 0.8 K/uL (0.4-2.0); MONOCYTES % (AUTO) 6.9 (0-10); NEUTROPHILS % (AUTO) 80.6 % (42.2-75.2); PLATELET COUNT 242 10^3/uL (140-440); RED BLOOD COUNT 4.05 10^6/ul (4.70-6.10); WHITE BLOOD COUNT 11.16 K/ul (4.2-10.2)
[2022-02-15 05:25] LABS: ALANINE AMINOTRANSFERASE 39.8 U/L (0-50); ALBUMIN 3.61 g/dL (3.5-5.0); ALKALINE PHOSPHATASE 56.6 U/L (56-119); BILIRUBIN,TOTAL 0.46 mg/dL (0.2-1.3); BLOOD UREA NITROGEN 23.4 mg/dL (9-20); CALCIUM 8.39 mg/dL (8.4-10.2); CARBON DIOXIDE 35.6 mmol/L (22-30.0); CHLORIDE 99.3 mmol/L (98-107); CREATININE 0.97 mg/dL (0.60-1.10); GLUCOSE 182.4 mg/dL (74-106); POTASSIUM 4.09 mmol/L (3.5-5.1); SODIUM 137.4 mmol/L (134.5-145); TOTAL PROTEIN 6.55 g/dL (6.3-8.2)
[2022-02-15] MEDS: SYNTHROID PO SCH (05:29)
[2022-02-15] MEDS: KEFLEX PO SCH ×2 (05:29→12:26)
[2022-02-15] MEDS: PRILOSEC PO SCH (05:29)
[2022-02-15] MEDS: LASIX TAB PO SCH (05:29)
[2022-02-15 05:39] VITALS: BP 102/65; TEMP 97.5
[2022-02-15] MEDS: GLUCOPHAGE PO SCH (09:09)
[2022-02-15] MEDS: ALDACTONE PO SCH (09:09)
[2022-02-15] MEDS: PREDNISONE PO SCH (09:09)
[2022-02-15] MEDS: FLOMAX PO SCH (09:09)
[2022-02-15] MEDS: ZYLOPRIM PO SCH (09:09)
[2022-02-15] MEDS: LEXAPRO PO SCH (09:09)
--- NOTE | 2022-02-18 13:53 | PN ---
DATE OF SERVICE: 02/15/22 SUBJECTIVE: 86 year old white male hospitalized with double pneumonia. The patient's condition seems to have improved. The patient wants to go home. REVIEW OF SYSTEMS: CONSTITUTIONAL: No night sweats. No fatigue, malaise, lethargy. No fever or chills. HEENT: Eyes: No visual changes. No eye pain. No eye discharge. ENT: No runny nose. No epistaxis. No sinus pain. No sore throat. No odynophagia. No congestion. RESPIRATORY: No cough, no congestion. No hemoptysis. Shortness of breath much less. CARDIOVASCULAR: No angina symptoms. No CHF symptoms. No atypical chest pain for CAD. No palpitations. No PND. No orthopnea. GASTROINTESTINAL: No abdominal pain. No nausea or vomiting. No diarrhea or constipation. No hematemesis. No hematochezia. Appetite has improved remarkably GENITOURINARY: No urgency. No frequency. No dysuria. No hematuria. No obstructive symptoms. No discharge. No pain. No significant abnormal bleeding. MUSCULOSKELETAL: No musculoskeletal pain; no joint swelling. NEUROLOGICAL: No headache. No neck pain. No syncope. No seizures. No dizziness. PSYCHIATRIC: Not anxious. No depression. No suicidal thoughts. No homicidal thoughts. SKIN: No rash. No lesions. No wounds. ENDOCRINE: No unexplained weight loss. No weight gain. HEMATOLOGIC/LYMPHATIC: No anemia. No purpura. No petechiae. No prolonged or excessive bleeding. No palpable lymph nodes. PHYSICAL EXAMINATION: VITAL SIGNS: Temperature 97.5, pulse 73, respiratory rate 20, blood pressure 102/65 and pulse ox 98% HEENT: Head normocephalic, atraumatic. Eyes: Extraocular muscles are intact. Pupils are equal, round and reactive to light and accommodation. Ears: No lesions. Nose appeared normal. Throat: No exudate or erythema. NECK: Supple. No JVD, no carotid bruit. No lymphadenopathy or thyromegaly. LUNGS: Decreased breath sounds with good air entry. Clear to auscultation. Percussion note normal. Chest symmetrical. HEART: S1, S2, no S3. No murmurs. No cyanosis or clubbing. No ascites. Pulses: Dorsalis pedis and posterior tibial pulses +1 to +2 bilaterally. ABDOMEN: Soft. Nontender. Bowel sounds active. No CVA tenderness. No mass felt. EXTREMITIES: +1 pitting edema. Full range of motion of all extremities, equal. NEUROLOGIC: No focal deficit. Cranial nerves II through XII are grossly intact. No headache. No double vision. SKIN: Not dry. Intact. Turgor - normal. LYMPHATIC: No palpable lymph nodes/no lymphedema. MUSCULOSKELETAL: Normal joints with no swelling. Muscle tone is normal. LABS: ABG yesterday showed pO2 68, pCO2 41, pH 7.51 with 95% saturation on room air. Hgb 12.5, hct 40, WBC 11,600 normal differential, creatinine 0.9, BUN 23, potassium 4. ASSESSMENT: 1. Double pneumonia seems to have resolved 2. Leg edema seems to be subsiding. 3. Severe chronic lung disease seems to be under control PLAN: 1. Discharge the patient on Keflex and Prednisone 2. The patient will continue Prednisone 5mg as before daily basis but for 4 days he will take 10mg 3. The patient has an appointment to see me on 2:30pm and advised to keep the appointment. CONDITION: Stable. The patient is going to be discharged home. TIME SPENT: More than 30 minutes. Plan and coordination of the patient's care discussed in the presence of nurse. KENTRELL
--- NOTE | 2022-02-18 14:27 | DS ---
DATE OF SERVICE: 02/15/22 FINAL DIAGNOSIS: 1. Double pneumonia, Influenza and COVID negative 2. History of CHF 3. Chronic lung disease on home oxygen 4. Bilateral dependent leg edema 5. Dyslipidemia 6. Hypertension 7. Gouty arthritis 8. Severe generalized osteoarthritis 9. Depression. 10.Diabetes mellitus type II 11.Benign prostatic hypertrophy DISCHARGE INSTRUCTIONS: Discharge home. Advised to come back on 20 of February at 2:30pm on followup. MEDICATIONS AT DISCHARGE: Allopurinol Spironolactone DUO NEB as needed Pravastatin Pulmicort Levothyroxine Metformin Tamsulosin Prednisone Lasix Lexapro Tramadol Lorazepam Omeprazole NEW PRESCRIPTIONS: Keflex to be taken 500mg BID for 4 days Prednisone 10mg PO daily for 4 days after that go back on 5mg as usual. Maintenance dose for chronic lung disease. HOSPITAL COURSE: 86 year old white male hospitalized with bilateral pneumonia. The patient was in respiratory failure with hypoxemia. The patient was aggressively treated with double antibiotics, steroids and NEBS and IV Lasix initially. The patient's condition improved. His blood gasses on room showed pO2 of 68, with pCO2 41 with pH 7.51 with 95% saturation. Appetite improved. Feeling a lot better. Cardiovascular status was stable. The patient has been made aware of side effects of steroids like avascular necrosis of femoral head etc. He is to be discharged home to be taken care of by the caretakers and the friends. PROGNOSIS: Guarded. CONDITION: Stable. TIME SPENT: More than 60 minutes. MTDD
--- NOTE | 2022-02-18 14:27 | PN ---
ADMISSION DAY: Level 5 REST OF THEM: Intermediate FINAL DAY: D as in discharge MTDD
--- NOTE | 2022-02-20 11:24 | PN ---
DATE OF SERVICE: 02/13/22 SUBJECTIVE: The patient was seen and examined with the Nurse Practitioner. The patient's condition is stable, improving some. Still has +1 pitting edema. Rales in the lung rodrigues noted at the bases. We will continue antibiotics and steroids. Maybe he will be discharged tomorrow. CONDITION: otherwise stable. TIME SPENT: More than 30 minutes. Plan and coordination of the patient's care discussed in the presence of nurse. KENTRELL
--- NOTE | 2022-02-21 08:31 | PN ---
DATE OF SERVICE: 02/14/22 SUBJECTIVE: 86 year old white male hospitalized with pneumonia with acute respiratory failure. The patient's condition has been improving slowly. He is has been on antibiotic and steroids. His appetite has improved. REVIEW OF SYSTEMS: CONSTITUTIONAL: No night sweats. No fatigue, malaise, lethargy. No fever or chills. HEENT: Eyes: No visual changes. No eye pain. No eye discharge. ENT: No runny nose. No epistaxis. No sinus pain. No sore throat. No odynophagia. No congestion. RESPIRATORY: No cough, no congestion. No hemoptysis. No shortness of breath. CARDIOVASCULAR: No angina symptoms. No CHF symptoms. No atypical chest pain for CAD. No palpitations. No PND. No orthopnea. GASTROINTESTINAL: No abdominal pain. No nausea or vomiting. No diarrhea or constipation. No hematemesis. No hematochezia. GENITOURINARY: No urgency. No frequency. No dysuria. No hematuria. No obstructive symptoms. No discharge. No pain. No significant abnormal bleeding. MUSCULOSKELETAL: No musculoskeletal pain; no joint swelling. NEUROLOGICAL: No headache. No neck pain. No syncope. No seizures. No dizziness. PSYCHIATRIC: Not anxious. No depression. No suicidal thoughts. No homicidal thoughts. SKIN: No rash. No lesions. No wounds. ENDOCRINE: No unexplained weight loss. No weight gain. HEMATOLOGIC/LYMPHATIC: No anemia. No purpura. No petechiae. No prolonged or excessive bleeding. No palpable lymph nodes. PHYSICAL EXAMINATION: VITAL SIGNS: Temperature 97.1, pulse 67, respiratory rate 22, blood pressure 121/68 and pulse ox 98% on room air. HEENT: Head normocephalic, atraumatic. Eyes: Extraocular muscles are intact. Pupils are equal, round and reactive to light and accommodation. Ears: No lesions. Nose appeared normal. Throat: No exudate or erythema. NECK: Supple. No JVD, no carotid bruit. No lymphadenopathy or thyromegaly. LUNGS: Decreased breath sounds but clear to auscultation. Percussion note normal. Chest symmetrical. HEART: S1, S2, no S3. No murmurs. No cyanosis or clubbing. No ascites. Pulses: Dorsalis pedis and posterior tibial pulses +1 to +2 bilaterally. ABDOMEN: Soft. Nontender. Bowel sounds active. No CVA tenderness. No mass felt. EXTREMITIES: No edema. Full range of motion of all extremities, equal. NEUROLOGIC: No focal deficit. Cranial nerves II through XII are grossly intact. No headache. No double vision. SKIN: Not dry. Intact. Turgor - normal. LYMPHATIC: No palpable lymph nodes/no lymphedema. MUSCULOSKELETAL: Normal joints with no swelling. Muscle tone is normal. LABS: Hgb 12, hct 38, WBC 10,000 normal differential, creatinine 0.8, BUN 25, potassium 4.6. ASSESSMENT: 1. Bilateral pneumonia seems to have practically resolved. No CHF noted. 2. Leg edema is +1 which is chronic 3. The patient's mental status has improved. He is a looking a lot better. Appetite has improved PLAN: 1. The patient is practically ready to be discharged. TIME SPENT: More than 30 minutes. Plan and coordination of the patient's care discussed in the presence of nurse. KENTRELL
== END 2022-02-15 14:15 | disposition home or self-care (01) | DRG 193 ==
LOC: ED 11:54 → MEDSURG A 15:11
PROVIDERS: ADMIT Internal Medicine; ATTEND Internal Medicine
DX: Z20.822 Contact with and (suspected) exposure to COVID-19; M62.81 Muscle weakness (generalized); I11.0 Hypertensive heart disease with heart failure; R60.0 Localized edema; E78.5 Hyperlipidemia, unspecified; M15.0 Primary generalized (osteo)arthritis; N40.1 Benign prostatic hyperplasia with lower urinary tract symptoms; R06.02 Shortness of breath; Z74.1 Need for assistance with personal care; E11.9 Type 2 diabetes mellitus without complications; J44.9 Chronic obstructive pulmonary disease, unspecified; Z79.84 Long term (current) use of oral hypoglycemic drugs; M10.9 Gout, unspecified; Z79.899 Other long term (current) drug therapy; I50.9 Heart failure, unspecified; J96.00 Acute respiratory failure, unspecified whether with hypoxia or hypercapnia; Z51.81 Encounter for therapeutic drug level monitoring; Z99.81 Dependence on supplemental oxygen; F32.A Depression, unspecified; J18.9 Pneumonia, unspecified organism

== ENCOUNTER 2022-06-17 15:10 | Inpatient (IN) ==
[2022-06-17] MEDS ORDERED: DUONEB NEB STA ×2 (15:30→17:11)
[2022-06-17] MEDS ORDERED: SOLU-MEDROL 125 MG IVP ONE (15:30)
--- NOTE | 2022-06-17 15:47 | ED.PDOC ---
General ED Provider: Dr. GABRIELLE MERLOS Chief Complaint: Shortness of Air Stated Complaint: Patient is an 87 year old male who has a history of lung cancer on the right chest for which he has been getting radiation. Last was 4 week ago. He states that over the last few days he has not taken his lasix since if he take is it makes him urinate alot. Has hence had an increase in weight with increased edema on the legs. Usually uses oxygen at night but lately has been needing it all the times. Apatite is down. Time Seen by Provider: 06/17/22 15:27 Information Source: Patient and Family Primary Care Provider: MACKENZIE FUENTES MD Nursing and Triage Documentation Reviewed and Agree: Yes Does patient meet sepsis criteria?: No System Inflammatory Response Syndrome: Not Applicable Sepsis Protocol: For patient's 13 years and over: Temp is 96.8 and below OR 101 and greater Pulse >90 BPM Resp >20/minute Acutely Altered Mental Status Are patient's symptoms suggestive of a new infection, such as: -Pneumonia -Skin, Soft Tissue -Endocarditis -UTI -Bone, Joint Infection -Implantable Device -Acute Abdominal Infection -Wound Infection -Meningitis -Blood Stream Catheter Infection -Unknown Respiratory Complaint Exam Shortness of Air Complaint/Exam Onset/Duration: 4 days Symptoms Are: Still present Timing: Constant Initial Severity: Mild Current Severity: Moderate Character: Reports Dyspnea at rest Aggravating: Reports Movement Associated Signs and Symptoms: Reports Cough, Wheezing, Edema (4 +) and Labored breathing; Denies Chest pain or Diaphoresis Related History: Reports Similar episode Tuberculosis Risk Factors: Reports None Home Oxygen Use: Yes (2 liters at night only ) Recent Stress Test: No Recent Echo/LV Function: No Respiratory Distress: Mild Stridor Present: No Tracheal Deviation: No Subcutaneous Emphysema: No Accessory Muscle Use: No Retractions: Not Present Diminished Breath Sounds: No Prolonged Expiratory Phase: No Fatigue: No Leg Swelling: Yes Cynthia's Sign Present: No Differential Diagnoses: Asthma, CHF, COPD Exacerbation, Pneumonia and URI Review of Systems Review Of Systems Constitutional: Reports No symptoms Eyes: Reports No symptoms Ears, Nose, Mouth, Throat: Reports No symptoms Respiratory: Reports Cough and Short of air Cardiac: Reports Edema GI: Reports No symptoms : Reports No symptoms Musculoskeletal: Reports Joint swelling Skin: Reports No symptoms Neurological: Reports Anxiety All Other Systems: Reviewed and Negative PFSH Medical History Family History GRANDDAUGHTER No problems noted. FATHER Heart disease BROTHER Heart disease Other No known health problems Social History Smoking and tobacco status: Former smoker Quit status: has quit before Alcohol intake: former Substance use type: does not use Household members: none Housing: house Lives independently: Yes Number of children: 0 service: Yes Current occupational status: retired Pets and animals: Yes Current gender identity: male Seatbelt use: always Drives intoxicated or rides with intoxicated chair car driver: No Water heater temperature set < 120 degrees: Yes Working smoke detector in home: Yes Fire extinguisher in home: Yes Carbon monoxide detector in home: Yes Firearms in home: Yes Physical Exam Physical Exam Appearance: Reports Ill-appearing Ill-appearing: Moderate Pain Distress: None Eyes: Reports NATHAN, EOMI and Conjunctiva clear ENT: Reports Nose normal and Oropharynx normal Neck: Supple Respiratory: Reports Breath sounds equal, Respirations nonlabored, Crackles and Rhonchi Cardiovascular: Reports RRR, Pulses normal, No rub and No murmur GI/: Reports Soft and Nontender Musculoskeletal: Reports Normal strength, ROM intact and No edema Skin: Reports Warm, Dry and Normal color Neurological: Reports Motor intact, Alert and Oriented Psychiatric: Reports Anxious Interpretation Radiology Interpretation Radiology Interpretation By: Radiologist Radiology Results: Negative Exam Interpreted: CXR Xray Comments: Diffuse infiltrates Veteran Appeals Reviewer Rate: Normal Rhythm: Sinus Ectopy: None EKG Interpretation Time of EKG #2: 16:12 Rate: Normal Rhythm: Sinus Ectopy: PACs Points: Left EKG Interpretation: bifascicular block , Old anterior infarct Critical Care Note Critical Care Note Total Critical Care Time (mins): 30 Course Course 06/18/22 04:52 06/18/22 04:52 Orders, Labs, Meds: Lab Review 06/17/22 06/17/22 06/17/22 15:40 15:42 15:49 WBC 8.58 RBC 4.12 L Hgb 12.9 L Hct 41.1 L MCV 99.8 H MCH 31.3 H MCHC 31.4 L RDW Coeff of Leonardo 13.8 Plt Count 197 Immature Gran % (Auto) 0.2 Neut % (Auto) 83.4 H Lymph % (Auto) 7.3 L Alexander % (Auto) 8.6 Eos % (Auto) 0.3 Baso % (Auto) 0.2 Neut # (Auto) 7.1 H Lymph # (Auto) 0.6 Alexander # (Auto) 0.7 Eos # (Auto) 0.0 Baso # (Auto) 0.0 Immature Gran # (Auto) 0.0 Puncture Site [employer] Excess 8.9 H O2 Saturation 95.1 ABG pH 7.46 H ABG pCO2 46.0 H ABG pO2 72.0 L ABG HCO3 32.7 H ABG Total CO2 34.1 H Alfonzo Test Pos Hemoglobin 0.8 Oxyhemoglobin 94.0 L Carboxyhemoglobin 1.6 H Total Hemoglobin 12.7 O2 Delivery Device Cannula Oxygen Liter Flow 1.50 Sodium 137.7 Potassium 3.69 Chloride 99.4 Carbon Dioxide 34.4 H Anion Gap 7.59 BUN 12.6 Creatinine 0.90 Estimated GFR (MDRD) 80.00 BUN/Creatinine Ratio 14.00 Glucose 146.5 H Lactic Acid 1.13 Calcium 8.57 Total Bilirubin 1.11 AST 24.2 ALT 15.0 Alkaline Phosphatase 62.6 Total Creatine Kinase 35.4 L Troponin I < 0.012 NT-Pro-B Natriuret Pep 251 Total Protein 7.18 Albumin 3.70 Globulin 3.48 Albumin/Globulin Ratio 1.06 Procalcitonin < 0.05 Orders Category Date Time Status ADMIT PATIENT INPATIENT .TO [facility] (MONITORED BED) ADMISSION 06/17/22 17:06 Active ABG DRAW REQUEST Stat CARDIO 06/17/22 15:30 Completed EKG-(ED ONLY) Stat CARDIO 06/17/22 15:30 Completed NEBULIZER TREATMENT Stat CARDIO 06/17/22 15:30 Completed NEBULIZER TREATMENT Stat CARDIO 06/17/22 17:12 Active OXYGEN Routine CARDIO 06/17/22 17:11 Active ACTIVITY .Up With Assistance CARE 06/17/22 17:11 Active BLOOD GLUCOSE MONITORING (MED/SURG) ACHS CARE 06/17/22 17:14 Active INTAKE & OUTPUT Q8HR CARE 06/17/22 17:01 Active TELEMETRY MONITORING TELE CARE 06/17/22 17:11 Active VITAL SIGNS Q4HR CARE 06/17/22 17:11 Active CARDIAC DIET DIETARY 06/17/22 Breakfast Ordered ED APPLY O2 .ONCE EMERGENCY 06/17/22 15:30 Active ED CHARGE ENTRY APPLIED .ONCE EMERGENCY 06/17/22 15:30 Active ED IV/MEDIPORT/POWERPORT .ONCE EMERGENCY 06/17/22 15:30 Active ABG COOX Stat LAB 06/17/22 15:42 Completed BLOOD CULTURE (ED ONLY) Stat LAB 06/17/22 15:49 Received CBC W/ AUTO DIFF DAILY@0600 LAB 06/18/22 04:52 Completed CBC W/ AUTO DIFF DAILY@0600 LAB 06/19/22 06:00 Ordered CBC W/ AUTO DIFF Stat LAB 06/17/22 15:49 Completed COMPREHENSIVE METABOLIC PANEL DAILY@0600 LAB 06/18/22 04:52 Completed COMPREHENSIVE METABOLIC PANEL DAILY@0600 LAB 06/19/22 06:00 Ordered COMPREHENSIVE METABOLIC PANEL Stat LAB 06/17/22 15:49 Completed CREATINE KINASE Stat LAB 06/17/22 15:49 Completed LACTIC ACID Stat LAB 06/17/22 15:49 Completed NT-PROBNP(ED) Stat LAB 06/17/22 15:40 Completed PROCALCITONIN Stat LAB 06/17/22 15:49 Completed SARS COV-2 RNA RAPID BAL Stat LAB 06/17/22 Completed TROPONIN I Stat LAB 06/17/22 15:49 Completed 0.9 % Sodium Chloride [Saline Flush] MEDS 06/17/22 15:30 Active 1 syr IVF PRN PRN Acetaminophen [Tylenol] MEDS 06/17/22 17:11 Active 650 mg PO Q4H PRN Allopurinol [Zyloprim] MEDS 06/18/22 09:00 Active 200 mg PO DAILY Azithromycin [Zithromax] MEDS 06/17/22 17:11 Discontinued 500 mg PO ONCE STA Budesonide [Pulmicort 1 Mg/2 Ml] MEDS 06/17/22 21:00 Discontinued 1 vial NEB BEDTIME Carvedilol [Coreg] MEDS 06/18/22 08:30 Active 3.125 mg PO DAILYWM Ceftriaxone/D5w 1 gm Premix [Rocephin 1 gm/50 ml D5w] MEDS 06/18/22 09:00 Active 1 gm in 50 ml IV DAILY Ceftriaxone/D5w 1 gm Premix [Rocephin 1 gm/50 ml D5w] MEDS 06/17/22 16:48 Discontinued 1 gm in 50 ml IV ONCE Enoxaparin Sodium [Lovenox] MEDS 06/18/22 09:00 Active 30 mg SUBCUT DAILY Escitalopram Oxalate [Lexapro] MEDS 06/18/22 09:00 Active 20 mg PO DAILY Furosemide [Lasix] MEDS 06/18/22 09:00 Active 20 mg IVP QDAC Insulin Regular, Human [Humulin R] MEDS 06/17/22 17:11 Active See Protocol SUBCUT PRN PRN Ipratropium/Albuterol Neb [Duoneb] MEDS 06/17/22 15:30 Discontinued 3 ml NEB ONCE STA Ipratropium/Albuterol Neb [Duoneb] MEDS 06/17/22 17:11 Discontinued 3 ml NEB ONCE STA Levothyroxine Sodium [Synthroid] MEDS 06/18/22 06:30 Active 100 mcg PO QDAC Lorazepam [Ativan] MEDS 06/17/22 21:00 Active 1 mg PO BEDTIME Metformin HCl [Glucophage] MEDS 06/18/22 08:30 Active 500 mg PO DAILYWM Methylprednisolone Sod Succ/Pf [Solu-Medrol 125 mg] MEDS 06/17/22 15:30 Discontinued 125 mg IVP ONCE ONE Methylprednisolone Sod Succ/Pf [Solu-Medrol 125 mg] MEDS 06/17/22 18:00 Active 125 mg IVP Q6HR Omeprazole [Prilosec] MEDS 06/18/22 09:00 Active 20 mg PO QDAC Ondansetron HCl/Pf [Zofran 4 mg/2 ml] MEDS 06/17/22 17:11 Active 4 mg IVP Q6H PRN Pravastatin Sodium [Pravachol] MEDS 06/17/22 21:00 Active 40 mg PO BEDTIME Spironolactone MEDS 06/18/22 09:00 Discontinued 25 mg PO DAILY Tamsulosin HCl [Flomax] MEDS 06/18/22 09:00 Active 0.4 mg PO DAILY RESUSCITATION STATUS Routine OTHERS 06/17/22 17:01 Ordered CHEST, 1V AP ONLY Stat RADS 06/17/22 15:30 Completed OT CONSULTATION Routine THERAPIES 06/17/22 Ordered PT CONSULT Routine THERAPIES 06/17/22 Ordered Medications Generic Name Dose Route Start Last Admin Trade Name Freq PRN Reason Stop Dose Admin Acetaminophen 650 mg 06/17/22 17:11 Acetaminophen 325 Mg Tablet PO Q4H PRN Fever and Mild Pain Albuterol Sulfate 1 mg 06/17/22 21:00 06/18/22 04:55 Albuterol Sulfate 0.083% Vial.Neb NEB 1 mg RTQID PATRICIA Administration Allopurinol 200 mg 06/18/22 09:00 Allopurinol 100 Mg Tablet PO DAILY REPLACED BY [facility] Budesonide 1 mg 06/17/22 21:00 06/17/22 20:30 Budesonide 1 Mg/2 Ml Vial.Neb NEB 1 mg BEDTIME PATRICIA Administration Budesonide 0.5 mg 06/18/22 06:00 Budesonide 0.5 Mg/2 Ml Vial.Sydnee NEB RTDAILY REPLACED BY [facility] Carvedilol 3.125 mg 06/18/22 08:30 Carvedilol 3.125 Mg Tablet PO DAILYWM REPLACED BY [facility] Enoxaparin Sodium 30 mg 06/18/22 09:00 Enoxaparin Sodium 30 Mg/0.3 Ml Syr SUBCUT DAILY REPLACED BY [facility] Escitalopram Oxalate 20 mg 06/18/22 09:00 Escitalopram Oxalate 10 Mg Tablet PO DAILY REPLACED BY [facility] Furosemide 20 mg 06/18/22 09:00 Furosemide Inj 20 Mg/2 Ml Vial IVP QDAC REPLACED BY [facility] CEFTRIAXONE/D5W 1 GM PREMIX 1 gm in 50 mls @ 75 mls/hr 06/18/22 09:00 Rocephin 1 Gm/50 Ml D5w IV 06/21/22 08:59 DAILY REPLACED BY [facility] Insulin Human Regular 0 unit 06/17/22 17:11 06/18/22 05:47 Insulin Regular, Human 100 Unit/Ml (3ml) Vial SUBCUT 3 unit PRN PRN Administration Hyperglycemia Protocol Levothyroxine Sodium 100 mcg 06/18/22 06:30 06/18/22 05:38 Levothyroxine Sodium 100 Mcg Tablet PO 100 mcg QDAC PATRICIA Administration Lorazepam 1 mg 06/17/22 21:00 06/17/22 20:21 Lorazepam 1 Mg Tablet PO 1 mg BEDTIME PATRICIA Administration Metformin HCl 500 mg 06/18/22 08:30 Metformin Hcl 500 Mg Tablet PO DAILYWM REPLACED BY [facility] Methylprednisolone Sodium Succinate 125 mg 06/17/22 18:00 06/18/22 05:00 Methylprednisolone Sod Succ/Pf 125 Mg/2 Ml Vial IVP 125 mg Q6HR REPLACED BY [facility] Administration Omeprazole 20 mg 06/18/22 09:00 Omeprazole 20 Mg Capsule. PO QDAC PATRICIA Ondansetron HCl 4 mg 06/17/22 17:11 Ondansetron Hcl/Pf 4 Mg/2 Ml Sdv IVP Q6H PRN Nausea / Vomiting Pravastatin Sodium 40 mg 06/17/22 21:00 06/17/22 20:21 Pravastatin Sodium 40 Mg Tablet PO 40 mg BEDTIME PATRICIA Administration Sodium Chloride 1 syr 06/17/22 15:30 06/18/22 05:05 0.9% Sodium Chloride 10 Ml Disp.Syrin IVF 1 syr PRN PRN Administration To flush IV Spironolactone 25 mg 06/18/22 09:00 Spironolactone 25 Mg Tablet PO DAILY PATRICIA Tamsulosin HCl 0.4 mg 06/18/22 09:00 Tamsulosin Hcl 0.4 Mg Cap.Er.24h PO DAILY PATRICIA Discontinued Medications Generic Name Dose Route Start Last Admin Trade Name Freq PRN Reason Stop Dose Admin Albuterol Sulfate 2.5 mg 06/17/22 20:00 06/17/22 20:30 Albuterol Sulfate 0.083% Vial.Sydnee NEB 2.5 mg RTQID PATRICIA Administration Albuterol/Ipratropium 3 ml 06/17/22 15:30 06/17/22 16:05 Ipratropium/Albuterol Vial.Sydnee NEB 06/17/22 15:31 3 ml ONCE STA Administration Albuterol/Ipratropium 3 ml 06/17/22 17:11 Ipratropium/Albuterol Vial.Sydnee OSMAN 06/17/22 17:12 ONCE STA Azithromycin 500 mg 06/17/22 17:11 06/17/22 18:54 Azithromycin 250 Mg Tablet PO 06/17/22 17:12 500 mg ONCE STA Administration CEFTRIAXONE/D5W 1 GM PREMIX 1 gm in 50 mls @ 75 mls/hr 06/17/22 16:48 06/17/22 17:00 Rocephin 1 Gm/50 Ml D5w IV 06/17/22 17:27 75 mls/hr ONCE STA Administration Methylprednisolone Sodium Succinate 125 mg 06/17/22 15:30 06/17/22 16:39 Methylprednisolone Sod Succ/Pf 125 Mg/2 Ml Vial IVP 06/17/22 15:31 125 mg ONCE ONE Administration Non-Formulary Medication 1 vial 06/17/22 21:00 Budesonide [Pulmicort 1 Mg/2 Ml] NEB BEDTIME PATRICIA Non-Formulary Medication 25 mg 06/18/22 09:00 Spironolactone PO DAILY PATRICIA Vital Signs: Temp Pulse Resp BP Pulse Ox 06/17/22 15:16 98.4 F 82 20 117/68 87 L Discharge Plan Discharge Patient Disposition: ADMITTED INPATIENT Discharge Problem: Pneumonia Did you review [place] [employer] [employer] for ALL controlled substances?: Not Applicable ED Provider: GABRIELLE MERLOS Physician Progress Note: []
[2022-06-17 15:55] LABS: BASOPHILS % (AUTO) 0.2 % (0.0-3.0); EOSINOPHILS % (AUTO) 0.3 % (0.0-7.0); HEMATOCRIT 41.1 % (42.0-52.0); HEMOGLOBIN 12.9 g/dl (14.0-18.0); IMMATURE GRANULOCYTE % (AUTO) 0.2 % (0.0-5.0); LYMPHOCYTES # (AUTO) 0.6 K/uL (0.60-3.4); LYMPHOCYTES % (AUTO) 7.3 (10.0-50.0); MEAN CORPUSCULAR HEMOGLOBIN 31.3 pg (27.0-31.0); MEAN CORPUSCULAR HGB CONC 31.4 (31.8-35.4); MEAN CORPUSCULAR VOLUME 99.8 fl (80.0-94.0); MONOCYTES # (AUTO) 0.7 K/uL (0.4-2.0); MONOCYTES % (AUTO) 8.6 (0-10); NEUTROPHILS # (AUTO) 7.1 K/ul (2.0-6.9); NEUTROPHILS % (AUTO) 83.4 % (42.2-75.2); PLATELET COUNT 197 10^3/uL (140-440); RDW COEFFICIENT OF VARIATION 13.8 % (11.6-14.8); RED BLOOD COUNT 4.12 10^6/ul (4.70-6.10); WHITE BLOOD COUNT 8.58 K/ul (4.2-10.2)
[2022-06-17 16:08] LABS: ALKALINE PHOSPHATASE 62.6 U/L (56-119); ASPARTATE AMINO TRANSFERASE 24.2 U/L (17-59); BILIRUBIN,TOTAL 1.11 mg/dL (0.2-1.3); BLOOD UREA NITROGEN 12.6 mg/dL (9-20); CALCIUM 8.57 mg/dL (8.4-10.2); CARBON DIOXIDE 34.4 mmol/L (22-30.0); CHLORIDE 99.4 mmol/L (98-107); CREATINE KINASE 35.4 U/L (55-170); GLUCOSE 146.5 mg/dL (74-106); POTASSIUM 3.69 mmol/L (3.5-5.1); SODIUM 137.7 mmol/L (134.5-145); TOTAL PROTEIN 7.18 g/dL (6.3-8.2)
[2022-06-17 16:09] LABS: ABG PH 7.46 (7.35-7.45); BEecf 8.9 (-2.0-3.0); COHb 1.6 (0.5-1.5); HCO3 32.7 (21-28); MetHb 0.8 (0-1.5); TCO2 34.1 (19-24); sO2 95.1 % (94-98); tHb 12.7 g/dl (11.7-17.4)
[2022-06-17 16:20] LABS: TROPONIN I < 0.012 ng/ml (0.0000-0.120)
--- NOTE | 2022-06-17 16:22 | DI ---
EXAM: CHEST ONE-VIEW HISTORY: Shortness of breath COMPARISON: Chest radiographs from 02/13/2022 FINDINGS: The cardiomediastinal silhouette is normal. The pulmonary vasculature is normal. Bibasil ar opacities are noted. No pneumothoraces or pleural effusions. IMPRESSION: 1. Bibasilar infiltrates.. .
[2022-06-17 16:36] LABS: SARS COV-2 RNA RAPID NAAT NEGATIVE (NEGATIVE)
[2022-06-17] MEDS ORDERED: ROCEPHIN 1 GM/50 ML D5W 1 GM/50 ML BAG IV STA (16:48)
[2022-06-17] MEDS ORDERED: ZITHROMAX PO STA (17:11)
[2022-06-17] MEDS ORDERED: ZOFRAN 4 MG/2 ML IVP PRN (17:11)
[2022-06-17] MEDS ORDERED: TYLENOL PO PRN (17:11)
[2022-06-17 19:03] VITALS: BMI 30.6
[2022-06-17] MEDS: SOLU-MEDROL 125 MG IVP SCH (19:12)
[2022-06-17] MEDS ORDERED: ALBUTEROL 0.083% NEB NEB SCH (20:00)
[2022-06-17] MEDS: PRAVACHOL PO SCH (20:21)
[2022-06-17] MEDS: ATIVAN PO SCH (20:21)
[2022-06-17] MEDS: HUMULIN R SUBCUT PRN (20:24)
[2022-06-17] MEDS: PULMICORT 1 MG/2 ML NEB SCH (20:30)
[2022-06-17] MEDS ORDERED: BUDESONIDE NEB SCH (21:00)
[2022-06-18] MEDS: SOLU-MEDROL 125 MG IVP SCH ×5 (00:57→23:22)
[2022-06-18] MEDS: ALBUTEROL 0.083% NEB NEB SCH ×5 (04:55→19:36)
[2022-06-18 05:12] LABS: BASOPHILS % (AUTO) 0.1 % (0.0-3.0); HEMATOCRIT 39.8 % (42.0-52.0); HEMOGLOBIN 12.5 g/dl (14.0-18.0); IMMATURE GRANULOCYTE % (AUTO) 0.3 % (0.0-5.0); LYMPHOCYTES # (AUTO) 0.4 K/uL (0.60-3.4); LYMPHOCYTES % (AUTO) 6.3 (10.0-50.0); MEAN CORPUSCULAR HEMOGLOBIN 30.9 pg (27.0-31.0); MEAN CORPUSCULAR HGB CONC 31.4 (31.8-35.4); MEAN CORPUSCULAR VOLUME 98.5 fl (80.0-94.0); MONOCYTES # (AUTO) 0.1 K/uL (0.4-2.0); MONOCYTES % (AUTO) 1.2 (0-10); NEUTROPHILS # (AUTO) 6.4 K/ul (2.0-6.9); NEUTROPHILS % (AUTO) 92.1 % (42.2-75.2); PLATELET COUNT 198 10^3/uL (140-440); RDW COEFFICIENT OF VARIATION 13.5 % (11.6-14.8); RED BLOOD COUNT 4.04 10^6/ul (4.70-6.10); WHITE BLOOD COUNT 6.94 K/ul (4.2-10.2)
[2022-06-18 05:24] LABS: ALBUMIN 3.43 g/dL (3.5-5.0); ALKALINE PHOSPHATASE 58.1 U/L (56-119); ASPARTATE AMINO TRANSFERASE 20.7 U/L (17-59); BILIRUBIN,TOTAL 0.68 mg/dL (0.2-1.3); CALCIUM 8.43 mg/dL (8.4-10.2); CHLORIDE 100.2 mmol/L (98-107); CREATININE 0.73 mg/dL (0.60-1.10); GLUCOSE 168.1 mg/dL (74-106); POTASSIUM 3.92 mmol/L (3.5-5.1); SODIUM 137.5 mmol/L (134.5-145); TOTAL PROTEIN 6.84 g/dL (6.3-8.2)
[2022-06-18] MEDS: SYNTHROID PO SCH (05:38)
[2022-06-18] MEDS: HUMULIN R SUBCUT PRN ×4 (05:47→22:13)
[2022-06-18] MEDS ORDERED: PULMICORT 0.5 MG/2 ML NEB SCH (06:00)
[2022-06-18] MEDS: ZYLOPRIM PO SCH (09:02)
[2022-06-18] MEDS: ALDACTONE PO SCH (09:02)
[2022-06-18] MEDS: COREG PO SCH (09:02)
[2022-06-18] MEDS: FLOMAX PO SCH (09:03)
[2022-06-18] MEDS: PRILOSEC PO SCH (09:04)
[2022-06-18] MEDS: LEXAPRO PO SCH (09:04)
[2022-06-18] MEDS: GLUCOPHAGE PO SCH (09:04)
[2022-06-18] MEDS: LOVENOX SUBCUT SCH (09:05)
[2022-06-18] MEDS: ROCEPHIN 1 GM/50 ML D5W 1 GM/50 ML BAG IV SCH (09:09)
[2022-06-18] MEDS: LASIX IVP SCH (09:27)
--- NOTE | 2022-06-18 16:30 | RS.SLPCNOT ---
Speech Case Note Date of Note: 06/18/22 Title: Consult Note: CHECK PILOT addressed consult with nursing. RN reported pt's lung sounds are 'terrible' and pt is on a modified diet. This date, the CHECK PILOT was unable to see pt for full assessment. CHECK PILOT recommended the nursing staff monitor pt with meal tray and downgrade liquid consistency if overt s/s of aspiration at the bedside. Will address this case as available or needed by MD, RN, or CM. Thank you for this consult.
[2022-06-18] MEDS: PULMICORT 1 MG/2 ML NEB SCH (19:36)
[2022-06-18] MEDS: ATIVAN PO SCH (20:06)
[2022-06-18] MEDS: PRAVACHOL PO SCH (20:06)
[2022-06-19] MEDS: ALBUTEROL 0.083% NEB NEB SCH ×4 (04:50→19:15)
[2022-06-19 05:12] LABS: BASOPHILS % (AUTO) 0.1 % (0.0-3.0); HEMATOCRIT 37.1 % (42.0-52.0); IMMATURE GRANULOCYTE # (AUTO) 0.1 (0.0-1.0); IMMATURE GRANULOCYTE % (AUTO) 0.4 % (0.0-5.0); LYMPHOCYTES # (AUTO) 0.5 K/uL (0.60-3.4); MEAN CORPUSCULAR HEMOGLOBIN 31.5 pg (27.0-31.0); MEAN CORPUSCULAR HGB CONC 32.3 (31.8-35.4); MEAN CORPUSCULAR VOLUME 97.4 fl (80.0-94.0); MONOCYTES # (AUTO) 0.4 K/uL (0.4-2.0); MONOCYTES % (AUTO) 3.3 (0-10); NEUTROPHILS # (AUTO) 11.9 K/ul (2.0-6.9); NEUTROPHILS % (AUTO) 92.2 % (42.2-75.2); PLATELET COUNT 209 10^3/uL (140-440); RDW COEFFICIENT OF VARIATION 13.6 % (11.6-14.8); RED BLOOD COUNT 3.81 10^6/ul (4.70-6.10); WHITE BLOOD COUNT 12.87 K/ul (4.2-10.2)
[2022-06-19 05:26] LABS: ALANINE AMINOTRANSFERASE 17.6 U/L (0-50); ALBUMIN 3.27 g/dL (3.5-5.0); ALKALINE PHOSPHATASE 56.2 U/L (56-119); ASPARTATE AMINO TRANSFERASE 24.9 U/L (17-59); BILIRUBIN,TOTAL 0.38 mg/dL (0.2-1.3); BLOOD UREA NITROGEN 22.8 mg/dL (9-20); CALCIUM 8.31 mg/dL (8.4-10.2); CARBON DIOXIDE 33.4 mmol/L (22-30.0); CHLORIDE 99.5 mmol/L (98-107); CREATININE 0.92 mg/dL (0.60-1.10); GLUCOSE 229.8 mg/dL (74-106); POTASSIUM 3.59 mmol/L (3.5-5.1); SODIUM 136.2 mmol/L (134.5-145); TOTAL PROTEIN 6.52 g/dL (6.3-8.2)
[2022-06-19] MEDS: SOLU-MEDROL 125 MG IVP SCH ×3 (05:42→21:04)
[2022-06-19] MEDS: LASIX IVP SCH (05:42)
[2022-06-19] MEDS: SYNTHROID PO SCH (05:43)
[2022-06-19] MEDS: PRILOSEC PO SCH (05:43)
[2022-06-19] MEDS: HUMULIN R SUBCUT PRN ×3 (06:08→21:09)
--- NOTE | 2022-06-19 08:57 | PCM.PROG ---
Attending Provider: ATTENDING PROVIDER: Dr. MACKENZIE FUENTES MD This patient is seen with Lizette Latham, Nurse Practitioner. DATE OF SERVICE: 06/19/22 SUBJECTIVE: This 87 year old /WHITE M was hospitalized 06/17/22. The patient is resting comfortably. Leg edema significantly improved. Breathing much easier this morning, appetite improving. Will do CT chest today. He has completed five rounds of radiation, no chemotherapy. He has next appointment in August. REVIEW OF SYSTEMS: CONSTITUTIONAL: Weakness. No night sweats. No fatigue, malaise, lethargy. No fe renetta or chills. HEENT: Eyes: No visual changes. No eye pain. No eye discharge. ENT: No runny nose. No epistaxis. No sinus pain. No odynophagia. No congestion. RESPIRATORY: Cough and shortness of breath. No hemoptysis. CARDIOVASCULAR: No angina symptoms. No CHF symptoms. No atypical chest pain for CAD. No palpitations. No orthopnea.. GASTROINTESTINAL: No abdominal pain. No nausea or vomiting. No diarrhea or constipation. No hematemesis. No hematochezia. GENITOURINARY: No urgency. No frequency. No dysuria. No hematuria. No obstructive symptoms. No discharge. No pain. No significant abnormal bleeding. MUSCULOSKELETAL: Leg edema. No musculoskeletal pain; no joint swelling. NEUROLOGICAL: Awake, alert, oriented to time, place and person. No headache. No neck pain. No syncope. No seizures. No dizziness. PSYCHIATRIC: Not anxious. No depression. No suicidal thoughts. No homicidal thoughts. SKIN: No rash. No lesions. No wounds. ENDOCRINE: No unexplained weight loss. No weight gain. HEMATOLOGIC/LYMPHATIC: No anemia. No purpura. No petechiae. No prolonged or excessive bleeding. No palpable lymph nodes. PHYSICAL EXAMINATION: GENERAL: The patient is awake, alert and oriented, lying/sitting in bed in no distress. VITAL SIGNS: Temperature 97.1 F, Pulse 66, Respiratory Rate 19, BP 116/76, Pulse Ox 97% HEENT: Head normocephalic, atraumatic. Eyes: Extraocular muscles are intact. Pupils are equal, round and reactive to light and accommodation. Ears: No lesi ons. Nose appeared normal. Throat: No exudate or erythema. NECK: Supple. No JVD, no carotid bruit. No lymphadenopathy or thyromegaly. LUNGS: Severely diminished breath sounds. Clear to auscultation. Percussion note normal. Chest symmetrical. HEART: S1, S2, no S3. No murmurs. No cyanosis or clubbing. No ascites. Pulses: Dorsalis pedis and posterior tibial pulses +1 to +2 both sides. ABDOMEN: Soft. Non-tender. Bowel sounds active. No CVA tenderness. No mass felt. EXTREMITIES: Trace bilateral edema. Full range of motion of all extremities, equal. NEUROLOGIC: No focal deficit. Cranial nerves II through XII are grossly intact. No headache. No double vision. SKIN: Not dry. Intact. Turgor-normal. LYMPHATIC: No palpable lymph nodes/no lymphedema. MUSCULOSKELETAL: Normal joints with no swelling. Muscle tone is normal. LAB REVIEW: 06/19/22 04:52 06/19/22 04:52 06/19/22 04:52: WBC 12.87 H D, RBC 3.81 L, Hgb 12.0 L, Hct 37.1 L, MCV 97.4 H, MCH 31.5 H, MCHC 32.3, RDW Coeff of Leonardo 13.6, Plt Count 209, Immature Gran % (Auto) 0.4, Neut % (Auto) 92.2 H, Lymph % (Auto) 4.0 L, Converse % (Auto) 3.3, Eos % (Auto) 0.0, Baso % (Auto) 0.1, Neut # (Auto) 11.9 H, Lymph # (Auto) 0.5 L, Converse # (Auto) 0.4, Eos # (Auto) 0.0, Baso # (Auto) 0.0, Immature Gran # (Auto) 0.1, Sodium 136.2, Potassium 3.59, Chloride 99.5, Carbon Dioxide 33.4 H, Anion Gap 6.89, BUN 22.8 H, Creatinine 0.92, Estimated GFR (MDRD) 78.00, BUN/Creatinine Ratio 24.78, Glucose 229.8 H D, Calcium 8.31 L, Total Bilirubin 0.38, AST 24.9, ALT 17.6, Alkaline Phosphatase 56.2, Total Protein 6.52, Albumin 3.27 L, Globulin 3.25, Albumin/Globulin Ratio 1.00 ASSESSMENT: Please see below. 1. Bilateral pneumonia. 2. Acute respiratory failure. 3. COPD. 4. Left upper lobe lung mass, sees Dr. Causey. 5. Chronic leg edema. 6. Cor pulmonale. PLAN: 1. Lasix 40 mg p.o. as of tomorrow. 2. Decrease steroids q.12. 3. CT of chest with and without contrast. Plan and coordination of the patient's care discussed in the presence of Internet Project Manager and nurse. CONDITION: Stable TIME SPENT: 35 MINUTES SCRIBED BY: Mauro PNA scribed while in presence of service performed by Lizette Latham APRN on 06/19/22 ([id number])
[2022-06-19] MEDS: LEXAPRO PO SCH (09:13)
[2022-06-19] MEDS: GLUCOPHAGE PO SCH (09:13)
[2022-06-19] MEDS: FLOMAX PO SCH (09:13)
[2022-06-19] MEDS: COREG PO SCH (09:14)
[2022-06-19] MEDS: ZITHROMAX PO SCH (09:14)
[2022-06-19] MEDS: ALDACTONE PO SCH (09:14)
[2022-06-19] MEDS: ZYLOPRIM PO SCH (09:14)
[2022-06-19] MEDS: LOVENOX SUBCUT SCH (09:15)
[2022-06-19] MEDS: ROCEPHIN 1 GM/50 ML D5W 1 GM/50 ML BAG IV SCH (09:21)
--- NOTE | 2022-06-19 12:43 | CT ---
EXAM: CHEST CT WITH AND WITHOUT INTRAVENOUS CONTRAST HISTORY: Shortness of breath. TECHNIQUE: CT acquisition of the chest from the thoracic inlet to the upper abdomen without and with IV contrast administration. 2-D coronal and sagittal reformatted images were obtained from the axial source images. CT Dose Reduction Techniques Performed: Yes. COMPARISON: 02/08/2022 FINDINGS: Lung Parenchyma and Airways: There are moderate bilateral pleural effusions, having increased from th e previous exam. There are bilateral lower lobe consolidations. Upper lobes are well expanded. Trac heobronchial tree is patent. No pneumothorax. Thoracic Inlet, Mediastinum, and Isabel: No mass. No lymphadenopathy. Heart, Vessels, and Pericardium: The main pulmonary artery is normal caliber. There is no central pu lmonary embolism. The thoracic aorta is not dilated. The heart is enlarged. There is no pericardi al effusion or thickening. There are coronary calcifications. Bones and Soft Tissues: Visualized bones are within normal limits. Chest wall soft tissues are unrem arkable. Upper Abdomen: There are hepatic cysts appear IMPRESSION: 1. Enlarging bilateral pleural effusions. Bilateral lower lobe infiltrates. Cardiomegaly. Atheros clerotic coronary disease. All CT scans are performed using dose optimization techniques as appropriate to the performed exam an d include at least one of the following: Automated exposure control, adjustment of the mA and/or kV according t o size, and the use of iterative reconstruction technique.
[2022-06-19] MEDS: PULMICORT 1 MG/2 ML NEB SCH (19:15)
[2022-06-19] MEDS: ATIVAN PO SCH (21:04)
[2022-06-19] MEDS: PRAVACHOL PO SCH (21:04)
[2022-06-20] MEDS: ALBUTEROL 0.083% NEB NEB SCH ×4 (04:50→20:40)
[2022-06-20 05:22] LABS: BASOPHILS % (AUTO) 0.1 % (0.0-3.0); HEMATOCRIT 37.3 % (42.0-52.0); HEMOGLOBIN 11.9 g/dl (14.0-18.0); IMMATURE GRANULOCYTE # (AUTO) 0.1 (0.0-1.0); IMMATURE GRANULOCYTE % (AUTO) 0.4 % (0.0-5.0); LYMPHOCYTES # (AUTO) 0.5 K/uL (0.60-3.4); LYMPHOCYTES % (AUTO) 3.9 (10.0-50.0); MEAN CORPUSCULAR HEMOGLOBIN 31.1 pg (27.0-31.0); MEAN CORPUSCULAR HGB CONC 31.9 (31.8-35.4); MEAN CORPUSCULAR VOLUME 97.4 fl (80.0-94.0); MONOCYTES # (AUTO) 0.3 K/uL (0.4-2.0); MONOCYTES % (AUTO) 2.4 (0-10); NEUTROPHILS # (AUTO) 10.8 K/ul (2.0-6.9); NEUTROPHILS % (AUTO) 93.2 % (42.2-75.2); PLATELET COUNT 212 10^3/uL (140-440); RDW COEFFICIENT OF VARIATION 13.7 % (11.6-14.8); RED BLOOD COUNT 3.83 10^6/ul (4.70-6.10); WHITE BLOOD COUNT 11.58 K/ul (4.2-10.2)
[2022-06-20 05:38] LABS: ALANINE AMINOTRANSFERASE 18.8 U/L (0-50); ALBUMIN 3.19 g/dL (3.5-5.0); ASPARTATE AMINO TRANSFERASE 25.8 U/L (17-59); BILIRUBIN,TOTAL 0.3 mg/dL (0.2-1.3); BLOOD UREA NITROGEN 26.1 mg/dL (9-20); CALCIUM 8.21 mg/dL (8.4-10.2); CARBON DIOXIDE 35.7 mmol/L (22-30.0); CREATININE 0.98 mg/dL (0.60-1.10); GLUCOSE 179.8 mg/dL (74-106); POTASSIUM 3.81 mmol/L (3.5-5.1); SODIUM 136.5 mmol/L (134.5-145); TOTAL PROTEIN 6.2 g/dL (6.3-8.2)
[2022-06-20] MEDS: SYNTHROID PO SCH (05:54)
[2022-06-20] MEDS: LASIX TAB PO SCH (05:54)
[2022-06-20] MEDS: HUMULIN R SUBCUT PRN ×4 (05:54→20:36)
[2022-06-20] MEDS: PRILOSEC PO SCH (05:54)
--- NOTE | 2022-06-20 08:00 | HP ---
DATE OF SERVICE: 06/17/22 REASON FOR HOSPITALIZATION/HISTORY OF PRESENT ILLNESS: 87-year-old white male came to the emergency room being short of breath, very difficulty breathing. According to the patient he thought he is not going to make it. This episode of shortness of breath has been there for the last 48 hours. The patient was seen and examined in the emergency room by ER attending and was given antibiotics, steroids, nebs treatment. The patient's blood gases on 1-2L with p02 of 72, pc02 of 46, pH 7.46 with 95% saturation is noted. Pro- BNP 251. PAST MEDICAL/SURGICAL HISTORY: The patient has history of severe chronic lung disease Chronic respiratory failure on home oxygen Congestive heart failure Hypertension Hypothyroidism Generalized anxiety disorder with depression Diabetes mellitus Dyslipidemia Benign prostatic hypertrophy Dependent leg edema REVIEW OF SYSTEMS: CONSTITUTIONAL: Fatigue and weakness. No night sweats. No malaise, lethargy. No fever or chills. HEENT: Eyes: No visual changes. No eye pain. No eye discharge. ENT: No runny nose. No epistaxis. No sinus pain. No sore throat. No odynophagia. No ear pain. No congestion. RESPIRATORY: Cough with congestion. Mildly yellowish sputum. No hemoptysis. CARDIOVASCULAR: Shortness of breath. No angina symptoms. No CHF symptoms. No atypical chest pain for CAD. No palpitations. No PND. No orthopnea. GASTROINTESTINAL: Appetite has been poor for the past few days. No abdominal pain. No nausea or vomiting. No diarrhea or constipation. No hematemesis. No hematochezia. GENITOURINARY: No urgency. No frequency. No dysuria. No hematuria. No obstructive symptoms. No discharge. No pain. No significant abnormal bleeding. MUSCULOSKELETAL: Generalized aches and pains lately. No joint swelling. NEUROLOGICAL: No headache. No neck pain. No syncope. No seizures. No dizziness. PSYCHIATRIC: Not anxious. No depression. No suicidal thoughts. No homicidal thoughts. SKIN: No rash. No lesions. No wounds. ENDOCRINE: No unexplained weight loss. No weight gain. HEMATOLOGIC/LYMPHATIC: No anemia. No purpura. No petechiae. No prolonged or excessive bleeding. No palpable lymph nodes. PERSONAL/FAMILY/SOCIAL HISTORY: The patient is a , lives with the help of many friends. Nonsmoker, no alcohol abuse. Requires help for most of the activity of daily living. The patient is DNR. MEDICATIONS: Allopurinol 200 mg p.o. daily Nebs treatment q.i.d. p.r.n. Carvedilol 3.125 p.o. daily Lexapro 10 mg p.o. daily Lasix 40 mg p.o. daily Metformin 500 mg p.o. daily Lorazepam 1 mg at bedtime Levothyroxine 100 mcg p.o. daily Omeprazole 20 mg p.o. q.a.m. Pravastatin 40 mg at bedtime Spironolactone 25 mg p.o. daily Tamsulosin 0.4 mg p.o. daily ALLERGIES: NONE PHYSICAL EXAMINATION: GENERAL: The patient is oriented to time, place and person. Mild distress. VITAL SIGNS: Temperature 98, pulse 80, respiratory rate 18 to 20/min, BP 130/70, pulse ox 95% on 2L. HEENT: Head normocephalic, atraumatic. Eyes: Extraocular muscles are intact. Pupils are equal, round and reactive to light and accommodation. Ears: No lesions. Nose appeared normal. Throat: No exudate or erythema. NECK: Supple. No JVD, no carotid bruit. No lymphadenopathy or thyromegaly. LUNGS: Decreased breath sounds bilaterally with expiratory wheeze. Percussion note normal. Chest symmetrical. HEART: S1, S2, no S3. No murmur. No cyanosis or clubbing. No ascites. Pulses: Dorsalis pedis and posterior tibial pulses +1 to +2 bilaterally. ABDOMEN: Protuberant, no ascites. Bowel sounds active. No CVA tenderness. No mass felt. EXTREMITIES: +3 pitting edema mostly below the ankle. Moving all his extremities. NEUROLOGIC: No focal deficit. Cranial nerves II through XII are grossly intact. No headache, no double vision or headache. SKIN: Not dry. Intact. Turgor - normal. LYMPHATIC: No palpable lymph nodes/no lymphedema. MUSCULOSKELETAL: Normal joints with no swelling. Muscle tone is normal. BNP 251, pH practically normal. Hemoglobin 12.9, hematocrit 41, WBC 8,000, normal differential. Creatinine 0.9, BUN 12, potassium 3.6. Blood profile normal. Glucose 146, troponin less than 0.12, procalcitonin negative. Chest x- ray - pneumonia. EKG sinus rhythm, no acute changes. ASSESSMENT: 1. Acute respiratory failure with acute pneumonitis pneumonia. 2. Severe chronic lung disease with chronic respiratory insufficiency. 3. History of CHF. 4. Hypertension. 5. Diabetes mellitus. 6. Dyslipidemia. 7. Hypothyroidism. 8. History of dependent leg edema. PLAN: 1. Give IV Lasix 20 mg. 2. Give IV Methylprednisolone 125 mg q.6 3. Rocephin 1 gm q.24. 4. Insulin coverage. 5. Clinitest. 6. Continue the rest of the medications like Spironolactone, Levothyroxine, Pravastatin, etc. 7. The patient is DNR. CONDITION: Stable. TIME SPENT: More than 75 minutes. MTDD
--- NOTE | 2022-06-20 08:08 | PN ---
DATE OF SERVICE: 06/18/22 SUBJECTIVE: 87-year-old white male hospitalized with pneumonia. The patient's condition seems to have improved. He says he is feeling better. The patient says he thought he was not going to make it and that is the reason why he came to the emergency room but is breathing a lot better. Appetite seems to be opening up. He is still not as hungry as he use to be. REVIEW OF SYSTEMS: CONSTITUTIONAL: No night sweats. No fatigue, malaise, lethargy. No fever or chills. HEENT: Eyes: No visual changes. No eye pain. No eye discharge. ENT: No runny nose. No epistaxis. No sinus pain. No sore throat. No odynophagia. No congestion. RESPIRATORY: No cough, no congestion. No hemoptysis. CARDIOVASCULAR: No angina symptoms. No CHF symptoms. No atypical chest pain for CAD. No palpitations. No PND. No orthopnea. Shortness of breath on minimal exertion. GASTROINTESTINAL: No abdominal pain. No nausea or vomiting. No diarrhea or constipation. No hematemesis. No hematochezia. GENITOURINARY: No urgency. No frequency. No dysuria. No hematuria. No obstructive symptoms. No discharge. No pain. No significant abnormal bleeding. MUSCULOSKELETAL: No musculoskeletal pain; no joint swelling. NEUROLOGICAL: No headache. No neck pain. No syncope. No seizures. No dizziness. PSYCHIATRIC: Not anxious. No depression. No suicidal thoughts. No homicidal thoughts. SKIN: No rash. No lesions. No wounds. ENDOCRINE: No unexplained weight loss. No weight gain. HEMATOLOGIC/LYMPHATIC: No anemia. No purpura. No petechiae. No prolonged or excessive bleeding. No palpable lymph nodes. PHYSICAL EXAMINATION: VITAL SIGNS: Temperature 97.5, pulse 75, respiratory rate 18, blood pressure 110/67, pulse ox 94%. HEENT: Head normocephalic, atraumatic. Eyes: Extraocular muscles are intact. Pupils are equal, round and reactive to light and accommodation. Ears: No lesions. Nose appeared normal. Throat: No exudate or erythema. NECK: Supple. No JVD, no carotid bruit. No lymphadenopathy or thyromegaly. LUNGS: Decreased breath sounds with mild wheeze, expiratory. Percussion note normal. Chest symmetrical. HEART: S1, S2, no S3. No murmurs. No cyanosis or clubbing. No ascites. Pulses: Dorsalis pedis and posterior tibial pulses +1 to +2 bilaterally. ABDOMEN: Soft. Nontender. Bowel sounds active. No CVA tenderness. No mass felt. EXTREMITIES: +3 to +2 pitting edema. Full range of motion of all extremities, equal. NEUROLOGIC: No focal deficit. Cranial nerves II through XII are grossly intact. No headache. No double vision. SKIN: Not dry. Intact. Turgor - normal. LYMPHATIC: No palpable lymph nodes/no lymphedema. MUSCULOSKELETAL: Normal joints with no swelling. Muscle tone is normal. ASSESSMENT: 1. Respiratory failure with pneumonia. 2. Severe chronic lung disease with history of respiratory failure. The patient is on home oxygen. 3. History of CHF. 4. History of hypertension. 5. Diabetes mellitus. 6. Obesity. 7. Hypothyroidism. 8. Depression. PLAN: 1. Continue Rocephin. 2. Continue steroids. 3. Continue nebs treatment. 4. Encouraged the patient to eat. 5. Continue the rest of the medications as before. CONDITION: Stable He is DNR. TIME SPENT: More than 35 minutes. Plan and coordination of the patient's care discussed in the presence of nurse. KENTRELL
[2022-06-20] MEDS: ZYLOPRIM PO SCH (08:43)
[2022-06-20] MEDS: FLOMAX PO SCH (08:43)
[2022-06-20] MEDS: SOLU-MEDROL 125 MG IVP SCH ×2 (08:44→20:35)
[2022-06-20] MEDS: COREG PO SCH (08:44)
[2022-06-20] MEDS: LEXAPRO PO SCH (08:44)
[2022-06-20] MEDS: ALDACTONE PO SCH (08:44)
[2022-06-20] MEDS: ZITHROMAX PO SCH (08:44)
[2022-06-20] MEDS: ROCEPHIN 1 GM/50 ML D5W 1 GM/50 ML BAG IV SCH (08:48)
[2022-06-20] MEDS: LOVENOX SUBCUT SCH (08:58)
--- NOTE | 2022-06-20 14:15 | RS.PTINEVL ---
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 LATEX ALLERGY?: No Medications: see chart Subjective Information/ Patient Comments:: pt states that he is waiting for a test. Level of function Prior to this admission, the patient could do the following:: Independent Ambulation (short distances) Current Level of Function: Partially Dependent Current Equipment Used at Home: WALKER, SHOWER CHAIR, CANE, OXYGEN, NEBULIZER Interventions Objective Patient Orientation: Person, Place, Time and Situation Current Interventions: IV's, Oxygen and Telemetry Observation: pt with pitting edema BLE Range of Motion ROM Right Upper Extremity AROM: Slight limitation (slight limitation of shld flex ) Left Upper Extremity AROM: Slight limitation (slight limitation of shld flex ) Right Lower Extremity AROM: Slight limitation Left Lower Extremity AROM: Slight limitation Muscle Strength Muscle Strength Right Upper Extremity: Mild Weakness (grossly 4/5) Left Upper Extremity: Mild Weakness (grossly 4/5 ) Right Lower Extremity: Mild Weakness (hip flex 4-/5, knee flex/ext 4/5, ankle DF/PF 4-/5) Left Lower Extremity: Mild Weakness Comments:: hip flex 4-/5, knee flex/ext 4/5, ankle DF/PF 4-/5 Sensation Sensation Right Upper Extremity: Intact/Normal Left Upper Extremity: Intact/Normal Right Lower Extremity: Impaired Left Lower Extremity: Impaired Comments: Reports n/t in B feet Palpation Palpation Findings: Tenderness (B feet ) Balance Sitting Balance and Reactions Static Sitting Balance: Good Dynamic Sitting Balance: Fair Standing Balance and Reactions Static Standing Balance: Poor Dynamic Standing Balance: Poor Standing Equilibrium Reactions: Delayed Left and Delayed Right Standing Protective Reactions: Delayed Left and Delayed Right Functional Mobility Bed Mobility Rolling R/L: Min Assist Supine to Sit: CGA and Min Assist Transfers Sit to Stand: CGA Stand to Sit: CGA Safety Awareness Safety Awareness: Fair BOBY INDEX SCORE: n/a Ambulation Ambulation Assistive Device Used: Rolling Walker Orthotic/Prosthetic Device: No Distance: 15ft Assistance needed with Ambulation: CGA and 1 person assist Gait Deviations: Wide Based gait, Forward posture and Short stride Factors Affecting Ambulation: Decreased Balance, Breathing/O2 Saturation, Weakness, Decreased Safety, Limited Endurance and Limited Sensation Treatment time Time with patient Length of Evaluation: 19 Total treatment time: 23 Patient Education Education Patient Education: Activity Modification and Education of Plan of Care Teaching Recipient: Patient Teaching Methods: Discussion Assessment Assessment Problem List:: Decreased level of function, Requires training/education, Decreased safety/Risk of falls and Weakness Rehab Potential: Fair Further Therapy Indicated?: Yes Candidate for Swing Bed for Therapy Services?: Feel pt is close to max potential and may not be a candidate for swing bed for therapy. Evaluation Complexity: HISTORY: Medium, EXAM OF BODY SYSTEMS: Medium, CLINICAL PRESENTATION: Medium and CLINICAL DECISION MAKING: Medium Patient's Goal(s): Get stronger and return home Short Term Goals GOAL #1: pt demonstrate rolling in bed independently Goal to be met by: 06/21/22 GOAL #2: Transfer sup to/from sit CGA Goal to be met by: 06/21/22 GOAL #3: Transfer sit to/from stand CGA to SBA Goal to be met by: 06/21/22 GOAL #4: pt amb with rwx 75ft with CGA Goal to be met by: 06/21/22 GOAL #5: Improve BLE Strength 4 to 4+/5 Goal to be met by: 06/21/22 GOAL #6: . 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 Goals GOAL #1: pt transfer sup to/from sit to/from stand SBA Goal to be met by: 06/23/22 GOAL #2: pt amb with rwx with O2 functional household distances SBA Goal to be met by: 06/23/22 GOAL #3: Ascend/descend 2-3 steps w HR CGA Goal to be met by: 06/23/22 Plan Plan of Care: Therapeutic EX and Therapeutic Activity Other:: gait training Frequency of Treatment: 1-2 X day, as tolerated Duration of Treatment: 4-5 days Anticipated Discharge Destination: Home Treatment Diagnosis (ICD 10 Codes): impaired balance R 26.81 gait difficulty R 26.2 weakness M62.81 Has the Physician been added for Co-signature?: Yes
[2022-06-20] MEDS: PRAVACHOL PO SCH (20:35)
[2022-06-20] MEDS: ATIVAN PO SCH (20:35)
[2022-06-20] MEDS: PULMICORT 1 MG/2 ML NEB SCH (20:40)
[2022-06-21] MEDS: ALBUTEROL 0.083% NEB NEB SCH ×4 (04:50→20:15)
[2022-06-21 05:07] LABS: HEMATOCRIT 38.9 % (42.0-52.0); HEMOGLOBIN 12.3 g/dl (14.0-18.0); IMMATURE GRANULOCYTE % (AUTO) 0.4 % (0.0-5.0); LYMPHOCYTES # (AUTO) 0.4 K/uL (0.60-3.4); LYMPHOCYTES % (AUTO) 4.2 (10.0-50.0); MEAN CORPUSCULAR HGB CONC 31.6 (31.8-35.4); MONOCYTES # (AUTO) 0.3 K/uL (0.4-2.0); MONOCYTES % (AUTO) 3.6 (0-10); NEUTROPHILS # (AUTO) 8.4 K/ul (2.0-6.9); NEUTROPHILS % (AUTO) 91.8 % (42.2-75.2); PLATELET COUNT 212 10^3/uL (140-440); RDW COEFFICIENT OF VARIATION 13.7 % (11.6-14.8); RED BLOOD COUNT 3.97 10^6/ul (4.70-6.10); WHITE BLOOD COUNT 9.12 K/ul (4.2-10.2)
[2022-06-21 05:21] LABS: ALANINE AMINOTRANSFERASE 24.1 U/L (0-50); ALBUMIN 3.19 g/dL (3.5-5.0); ALKALINE PHOSPHATASE 47.8 U/L (56-119); ASPARTATE AMINO TRANSFERASE 28.3 U/L (17-59); BILIRUBIN,TOTAL 0.32 mg/dL (0.2-1.3); BLOOD UREA NITROGEN 28.5 mg/dL (9-20); CALCIUM 8.03 mg/dL (8.4-10.2); CARBON DIOXIDE 37.7 mmol/L (22-30.0); CHLORIDE 98.4 mmol/L (98-107); CREATININE 1.01 mg/dL (0.60-1.10); GLUCOSE 197.3 mg/dL (74-106); POTASSIUM 3.77 mmol/L (3.5-5.1); SODIUM 137.4 mmol/L (134.5-145); TOTAL PROTEIN 6.13 g/dL (6.3-8.2)
[2022-06-21] MEDS: SYNTHROID PO SCH (05:55)
[2022-06-21] MEDS: HUMULIN R SUBCUT PRN ×4 (05:55→20:30)
[2022-06-21] MEDS: LASIX TAB PO SCH (05:55)
[2022-06-21] MEDS: PRILOSEC PO SCH (05:56)
[2022-06-21] MEDS: SOLU-MEDROL 125 MG IVP SCH (08:41)
[2022-06-21] MEDS: ALDACTONE PO SCH (09:00)
[2022-06-21] MEDS: FLOMAX PO SCH (09:00)
[2022-06-21] MEDS: LEXAPRO PO SCH (09:00)
[2022-06-21] MEDS: ZYLOPRIM PO SCH (09:01)
[2022-06-21] MEDS: ZITHROMAX PO SCH (09:01)
[2022-06-21] MEDS: COREG PO SCH (09:01)
[2022-06-21] MEDS: LOVENOX SUBCUT SCH (09:02)
[2022-06-21] MEDS: ROCEPHIN 1 GM/50 ML D5W 1 GM/50 ML BAG IV SCH (10:36)
[2022-06-21] MEDS: PULMICORT 1 MG/2 ML NEB SCH (20:15)
[2022-06-21] MEDS: ATIVAN PO SCH (20:30)
[2022-06-21] MEDS: OMNICEF PO SCH (20:30)
[2022-06-21] MEDS: PRAVACHOL PO SCH (20:30)
[2022-06-22] MEDS: ALBUTEROL 0.083% NEB NEB SCH ×4 (04:45→20:25)
[2022-06-22 04:54] LABS: BASOPHILS % (AUTO) 0.1 % (0.0-3.0); HEMATOCRIT 39.4 % (42.0-52.0); HEMOGLOBIN 12.5 g/dl (14.0-18.0); IMMATURE GRANULOCYTE # (AUTO) 0.1 (0.0-1.0); IMMATURE GRANULOCYTE % (AUTO) 0.8 % (0.0-5.0); LYMPHOCYTES # (AUTO) 0.5 K/uL (0.60-3.4); MEAN CORPUSCULAR HEMOGLOBIN 30.9 pg (27.0-31.0); MEAN CORPUSCULAR HGB CONC 31.7 (31.8-35.4); MEAN CORPUSCULAR VOLUME 97.5 fl (80.0-94.0); MONOCYTES # (AUTO) 0.7 K/uL (0.4-2.0); MONOCYTES % (AUTO) 8.1 (0-10); NEUTROPHILS # (AUTO) 7.9 K/ul (2.0-6.9); PLATELET COUNT 215 10^3/uL (140-440); RDW COEFFICIENT OF VARIATION 13.7 % (11.6-14.8); RED BLOOD COUNT 4.04 10^6/ul (4.70-6.10); WHITE BLOOD COUNT 9.17 K/ul (4.2-10.2)
[2022-06-22 05:05] LABS: ALANINE AMINOTRANSFERASE 33.4 U/L (0-50); ALBUMIN 3.1 g/dL (3.5-5.0); ALKALINE PHOSPHATASE 50.3 U/L (56-119); ASPARTATE AMINO TRANSFERASE 33.3 U/L (17-59); BILIRUBIN,TOTAL 0.39 mg/dL (0.2-1.3); BLOOD UREA NITROGEN 28.7 mg/dL (9-20); CALCIUM 7.81 mg/dL (8.4-10.2); CARBON DIOXIDE 38.8 mmol/L (22-30.0); CHLORIDE 96.9 mmol/L (98-107); CREATININE 1.05 mg/dL (0.60-1.10); GLUCOSE 163.6 mg/dL (74-106); POTASSIUM 3.48 mmol/L (3.5-5.1); SODIUM 137.9 mmol/L (134.5-145); TOTAL PROTEIN 6.01 g/dL (6.3-8.2)
[2022-06-22] MEDS: HUMULIN R SUBCUT PRN ×3 (05:43→20:08)
[2022-06-22] MEDS: LASIX TAB PO SCH (05:44)
[2022-06-22] MEDS: SYNTHROID PO SCH (05:44)
[2022-06-22] MEDS: PRILOSEC PO SCH (05:44)
[2022-06-22] MEDS: OMNICEF PO SCH ×2 (08:37→20:08)
[2022-06-22] MEDS: ALDACTONE PO SCH (08:37)
[2022-06-22] MEDS: LEXAPRO PO SCH (08:38)
[2022-06-22] MEDS: ZITHROMAX PO SCH (08:38)
[2022-06-22] MEDS: ZYLOPRIM PO SCH (08:38)
[2022-06-22] MEDS: COREG PO SCH (08:39)
[2022-06-22] MEDS: PREDNISONE PO SCH (08:40)
[2022-06-22] MEDS: FLOMAX PO SCH (08:40)
[2022-06-22] MEDS: LOVENOX SUBCUT SCH (08:41)
[2022-06-22] MEDS: K-DUR PO SCH ×2 (12:51→17:27)
[2022-06-22] MEDS: GLUCOPHAGE PO SCH (18:01)
[2022-06-22] MEDS: ATIVAN PO SCH (20:08)
[2022-06-22] MEDS: PRAVACHOL PO SCH (20:08)
[2022-06-22] MEDS: PULMICORT 1 MG/2 ML NEB SCH (20:25)
[2022-06-23 04:34] LABS: BASOPHILS % (AUTO) 0.1 % (0.0-3.0); EOSINOPHILS # (AUTO) 0.1 K/ul (0.0-0.7); EOSINOPHILS % (AUTO) 0.9 % (0.0-7.0); HEMOGLOBIN 13.3 g/dl (14.0-18.0); IMMATURE GRANULOCYTE # (AUTO) 0.1 (0.0-1.0); IMMATURE GRANULOCYTE % (AUTO) 0.9 % (0.0-5.0); LYMPHOCYTES # (AUTO) 0.6 K/uL (0.60-3.4); LYMPHOCYTES % (AUTO) 6.8 (10.0-50.0); MEAN CORPUSCULAR HEMOGLOBIN 30.9 pg (27.0-31.0); MEAN CORPUSCULAR HGB CONC 30.9 (31.8-35.4); MEAN CORPUSCULAR VOLUME 99.8 fl (80.0-94.0); MONOCYTES # (AUTO) 0.7 K/uL (0.4-2.0); MONOCYTES % (AUTO) 7.7 (0-10); NEUTROPHILS # (AUTO) 7.7 K/ul (2.0-6.9); NEUTROPHILS % (AUTO) 83.6 % (42.2-75.2); PLATELET COUNT 217 10^3/uL (140-440); RDW COEFFICIENT OF VARIATION 13.8 % (11.6-14.8); RED BLOOD COUNT 4.31 10^6/ul (4.70-6.10)
[2022-06-23 04:46] LABS: ALANINE AMINOTRANSFERASE 40.8 U/L (0-50); ALBUMIN 3.36 g/dL (3.5-5.0); ALKALINE PHOSPHATASE 51.1 U/L (56-119); ASPARTATE AMINO TRANSFERASE 32.8 U/L (17-59); BILIRUBIN,TOTAL 0.39 mg/dL (0.2-1.3); BLOOD UREA NITROGEN 32.1 mg/dL (9-20); CALCIUM 7.77 mg/dL (8.4-10.2); CHLORIDE 97.2 mmol/L (98-107); CREATININE 1.05 mg/dL (0.60-1.10); GLUCOSE 98.6 mg/dL (74-106); POTASSIUM 3.8 mmol/L (3.5-5.1); SODIUM 140.5 mmol/L (134.5-145); TOTAL PROTEIN 6.29 g/dL (6.3-8.2)
[2022-06-23] MEDS: ALBUTEROL 0.083% NEB NEB SCH ×4 (04:50→19:10)
[2022-06-23 04:54] LABS: CARBON DIOXIDE 47.2 mmol/L (22-30.0)
[2022-06-23] MEDS: PRILOSEC PO SCH (05:42)
[2022-06-23] MEDS: LASIX TAB PO SCH (05:42)
[2022-06-23] MEDS: SYNTHROID PO SCH (05:42)
[2022-06-23 09:06] LABS: ABG O2 HGB 94.8 % (95-100); BEecf 20.8 (-2.0-3.0); COHb 1.9 (0.5-1.5); HCO3 43.5 (21-28); MetHb 0.6 (0-1.5); TCO2 45.1 (19-24); sO2 96.1 % (94-98); tHb 14.3 g/dl (11.7-17.4)
[2022-06-23 09:12] LABS: ABG PH 7.53 (7.35-7.45)
[2022-06-23] MEDS: WELLBUTRIN PO SCH (09:23)
[2022-06-23] MEDS: OMNICEF PO SCH ×2 (09:24→21:23)
[2022-06-23] MEDS: GLUCOPHAGE PO SCH (09:24)
[2022-06-23] MEDS: ZYLOPRIM PO SCH (09:24)
[2022-06-23] MEDS: ALDACTONE PO SCH (09:24)
[2022-06-23] MEDS: K-DUR PO SCH ×2 (09:25→16:46)
[2022-06-23] MEDS: LEXAPRO PO SCH (09:25)
[2022-06-23] MEDS: FLOMAX PO SCH (09:26)
[2022-06-23] MEDS: PREDNISONE PO SCH (09:26)
[2022-06-23] MEDS: COREG PO SCH (09:26)
[2022-06-23] MEDS: LOVENOX SUBCUT SCH (09:27)
--- NOTE | 2022-06-23 09:37 | PCM.PROG ---
Attending Provider: ATTENDING PROVIDER: Dr. MACKENZIE FUENTES MD This patient is seen with Lizette Latham, Nurse Practitioner. DATE OF SERVICE: 06/23/22 SUBJECTIVE: This 87 year old /WHITE M was hospitalized 06/17/22. c02 up to 47 on CMP this morning, significant increase from yesterday. The patient is on 2L and satting 97%. Will do ABG this morning. After speaking with the patient, he is feeling tired and down this morning. REVIEW OF SYSTEMS: CONSTITUTIONAL: Fatigue. No night sweats. No malaise, lethargy. No fever or chills. HEENT: Eyes: No visual changes. No eye pain. No eye discharge. ENT: No runny nose. No epistaxis. No sinus pain. No odynophagia. No congestion. RESPIRATORY: No cough, no congestion. No hemoptysis. CARDIOVASCULAR: Shortness of breath. No angina symptoms. No CHF symptoms. No atypical chest pain for CAD. No palpitations. No orthopnea. GASTROINTESTINAL: No abdominal pain. No nausea or vomiting. No diarrhea or constipation. No hematemesis. No hematochezia. GENITOURINARY: No urgency. No frequency. No dysuria. No hematuria. No obstructive symptoms. No discharge. No pain. No significant abnormal bleeding. MUSCULOSKELETAL: No musculoskeletal pain; no joint swelling. NEUROLOGICAL: Awake, alert, oriented to time, place and person. No headache. No neck pain. No syncope. No seizures. No dizziness. PSYCHIATRIC: Not anxious. No depression. No suicidal thoughts. No homicidal thoughts. SKIN: No rash. No lesions. No wounds. ENDOCRINE: No unexplained weight loss. No weight gain. HEMATOLOGIC/LYMPHATIC: No anemia. No purpura. No petechiae. No prolonged or excessive bleeding. No palpable lymph nodes. PHYSICAL EXAMINATION: GENERAL: The patient is awake, alert and oriented, lying/sitting in chair in no distress. VITAL SIGNS: Temperature 97.6 F, Pulse 94, Respiratory Rate 20, BP 122/62, Pulse Ox 97% HEENT: Head normocephalic, atraumatic. Eyes: Extraocular muscles are intact. Pupils are equal, round and reactive to light and accommodation. Ears: No lesions. Nose appeared normal. Throat: No exudate or erythema. NECK: Supple. No JVD, no carotid bruit. No lymphadenopathy or thyromegaly. LUNGS: Severely diminished breath sounds. Clear to auscultation. Percussion note normal. Chest symmetrical. HEART: S1, S2, no S3. No murmurs. No cyanosis or clubbing. No ascites. Pulses: Dorsalis pedis and posterior tibial pulses +1 to +2 both sides. ABDOMEN: Soft. Non-tender. Bowel sounds active. No CVA tenderness. No mass felt. EXTREMITIES: +1 bilateral leg edema. Full range of motion of all extremities, equal. NEUROLOGIC: No focal deficit. Cranial nerves II through XII are grossly intact. No headache. No double vision. SKIN: Not dry. Intact. Turgor-normal. LYMPHATIC: No palpable lymph nodes/no lymphedema. MUSCULOSKELETAL: Normal joints with no swelling. Muscle tone is normal. LAB REVIEW: 06/23/22 04:25 06/23/22 04:25 06/23/22 04:25: WBC 9.20, RBC 4.31 L, Hgb 13.3 L, Hct 43.0, MCV 99.8 H, MCH 30.9, MCHC 30.9 L, RDW Coeff of Leonardo 13.8, Plt Count 217, Immature Gran % (Auto) 0.9, Neut % (Auto) 83.6 H, Lymph % (Auto) 6.8 L, Camp % (Auto) 7.7, Eos % (Auto) 0.9, Baso % (Auto) 0.1, Neut # (Auto) 7.7 H, Lymph # (Auto) 0.6, Camp # (Auto) 0.7, Eos # (Auto) 0.1, Baso # (Auto) 0.0, Immature Gran # (Auto) 0.1, Sodium 140.5, Potassium 3.80, Chloride 97.2 L, Carbon Dioxide 47.2 H* D, Anion Gap - 0.10, BUN 32.1 H, Creatinine 1.05, Estimated GFR (MDRD) 67.00, BUN/Creatinine Ratio 30.57, Glucose 98.6 D, Calcium 7.77 L, Total Bilirubin 0.39, AST 32.8, ALT 40.8, Alkaline Phosphatase 51.1 L, Total Protein 6.29 L, Albumin 3.36 L, Globulin 2.93, Albumin/Globulin Ratio 1.14 ASSESSMENT: Please see below. 1. Acute on chronic respiratory failure with possible c02 retention. 2. COPD. 3. Cor pulmonale. 4. Dependent leg edema. PLAN: 1. Wellbutrin 75 mg p.o. daily. 2. Continue Lexapro. 3. 2D echocardiogram. 4. Continue Lexapro. 5. Repeat ABG on 2L (or whatever he is on). 6. Repeat chest x-ray. Plan and coordination of the patient's care discussed in the presence of Still Operator Whiskey and nurse. CONDITION: Stable TIME SPENT: 35 MINUTES SCRIBED BY: Mauro PAN scribed while in presence of service performed by Lizette Latham APRN on 06/23/22 ([id number])
--- NOTE | 2022-06-23 10:54 | DI ---
EXAM: CHEST RADIOGRAPH TECHNIQUE: Two views. Frontal and lateral. HISTORY: Cough and shortness of breath. COMPARISON: 06/17/2022. FINDINGS: Upper chest partially obscured by overlying patient mandible. Mild left basilar atelectasis or pneum onia. Otherwise clear lungs. The heart size is normal. There is calcification in the aorta consistent with atherosclerosis. There is no pleural effusion. There is no pneumothorax. IMPRESSION: 1. Mild left basilar atelectasis. 2. Atherosclerosis. 3. Otherwise unremarkable chest radiographs.
--- NOTE | 2022-06-23 16:14 | PN ---
DATE OF SERVICE: 06/20/22 SUBJECTIVE: 87 year old white male hospitalized with pneumonia. Patient's condition seems to be improving. His leg edema also was the main factor for admission. 3+ pitting edema is down to 1+. He is breathing better. He says he is feeling better. His appetite has improved. REVIEW OF SYSTEMS: CONSTITUTIONAL: No night sweats. No fatigue, malaise, lethargy. No fever or chills. HEENT: Eyes: No visual changes. No eye pain. No eye discharge. ENT: No runny nose. No epistaxis. No sinus pain. No sore throat. No odynophagia. No congestion. RESPIRATORY: No cough, no congestion. No hemoptysis. No shortness of breath. CARDIOVASCULAR: No angina symptoms. No CHF symptoms. No atypical chest pain for CAD. No palpitations. No PND. No orthopnea. GASTROINTESTINAL: No abdominal pain. No nausea or vomiting. No diarrhea or constipation. No hematemesis. No hematochezia. GENITOURINARY: No urgency. No frequency. No dysuria. No hematuria. No obstructive symptoms. No discharge. No pain. No significant abnormal bleeding. MUSCULOSKELETAL: No musculoskeletal pain; no joint swelling. NEUROLOGICAL: No headache. No neck pain. No syncope. No seizures. No dizziness. PSYCHIATRIC: Not anxious. No depression. No suicidal thoughts. No homicidal thoughts. SKIN: No rash. No lesions. No wounds. ENDOCRINE: No unexplained weight loss. No weight gain. HEMATOLOGIC/LYMPHATIC: No anemia. No purpura. No petechiae. No prolonged or excessive bleeding. No palpable lymph nodes. PHYSICAL EXAMINATION: GENERAL: The patient is in no distress. VITAL SIGNS: Temp 96.7, pulse 68, respiratory rate 16, blood pressure 124/80, pulse ox 95% HEENT: Head normocephalic, atraumatic. Eyes: Extraocular muscles are intact. Pupils are equal, round and reactive to light and accommodation. Ears: No lesions. Nose appeared normal. Throat: No exudate or erythema. NECK: Supple. LUNGS: Decreased breath sounds. Mild expiratory wheeze with better air entry than yesterday. HEART: S1, S2, no S3. ABDOMEN: Soft. Protuberant. EXTREMITIES: +1 pitting edema. NEUROLOGIC: No focal deficit. Cranial nerves II through XII are grossly intact. No headache. No double vision. SKIN: Not dry. Intact. Turgor - normal. LYMPHATIC: No palpable lymph nodes/no lymphedema. MUSCULOSKELETAL: Normal joints with no swelling. Muscle tone is normal. LABS: Hemoglobin 11.9, hematocrit 37, WBC 11,000, normal differential, creatinine 0.9, BUN 26, potassium 3.8, EGFR 73 cc/minute. ALT/AST normal. ASSESSMENT: Pneumonia is resolving PLAN: Continue antibiotics, steroids and nebs. TIME SPENT: More than 35 minutes. Plan and coordination of the patient's care discussed in the presence of nurse. KENTRELL
--- NOTE | 2022-06-23 16:17 | PN ---
DATE OF SERVICE: 06/19/22 SUBJECTIVE: Patient was seen and examined with the nurse practitioner. Patient's condition is improving. Edema is much less. He is breathing better and appetite has improved. REVIEW OF SYSTEMS: CONSTITUTIONAL: No night sweats. No fatigue, malaise, lethargy. No fever or chills. HEENT: Eyes: No visual changes. No eye pain. No eye discharge. ENT: No runny nose. No epistaxis. No sinus pain. No sore throat. No odynophagia. No congestion. RESPIRATORY: No cough, no congestion. No hemoptysis. No shortness of breath. CARDIOVASCULAR: No angina symptoms. No CHF symptoms. No atypical chest pain for CAD. No palpitations. No PND. No orthopnea. GASTROINTESTINAL: No abdominal pain. No nausea or vomiting. No diarrhea or constipation. No hematemesis. No hematochezia. GENITOURINARY: No urgency. No frequency. No dysuria. No hematuria. No obstructive symptoms. No discharge. No pain. No significant abnormal bleeding. MUSCULOSKELETAL: No musculoskeletal pain; no joint swelling. NEUROLOGICAL: No headache. No neck pain. No syncope. No seizures. No dizziness. PSYCHIATRIC: Not anxious. No depression. No suicidal thoughts. No homicidal thoughts. SKIN: No rash. No lesions. No wounds. ENDOCRINE: No unexplained weight loss. No weight gain. HEMATOLOGIC/LYMPHATIC: No anemia. No purpura. No petechiae. No prolonged or excessive bleeding. No palpable lymph nodes. PHYSICAL EXAMINATION: GENERAL: The patient is in no distress. HEENT: Head normocephalic, atraumatic. Eyes: Extraocular muscles are intact. Pupils are equal, round and reactive to light and accommodation. Ears: No lesions. Nose appeared normal. Throat: No exudate or erythema. NECK: Supple. No JVD, no carotid bruit. No lymphadenopathy or thyromegaly. LUNGS: Clear to auscultation. Percussion note normal. Chest symmetrical. HEART: S1, S2, no S3. No murmurs. No cyanosis or clubbing. No ascites. Pulses: Dorsalis pedis and posterior tibial pulses +1 to +2 bilaterally. ABDOMEN: Soft. Nontender. Bowel sounds active. No CVA tenderness. No mass felt. EXTREMITIES: No edema. Full range of motion of all extremities, equal. NEUROLOGIC: No focal deficit. Cranial nerves II through XII are grossly intact. No headache. No double vision. SKIN: Not dry. Intact. Turgor - normal. LYMPHATIC: No palpable lymph nodes/no lymphedema. MUSCULOSKELETAL: Normal joints with no swelling. Muscle tone is normal. TIME SPENT: More than 35 minutes. Plan and coordination of the patient's care discussed in the presence of nurse. KENTRELL
--- NOTE | 2022-06-23 16:23 | PN ---
DATE OF SERVICE: 06/21/22 SUBJECTIVE: 87 year old white male hospitalized with pneumonia and respiratory distress. Patient's condition has improved. He said he is feeling better. He is cleaning up his plate. His appetite has improved. He is less short of breath. REVIEW OF SYSTEMS: CONSTITUTIONAL: No night sweats. No fatigue, malaise, lethargy. No fever or chills. HEENT: Eyes: No visual changes. No eye pain. No eye discharge. ENT: No runny nose. No epistaxis. No sinus pain. No sore throat. No odynophagia. No congestion. RESPIRATORY: No cough, no congestion. No hemoptysis. No shortness of breath. CARDIOVASCULAR: No chest pain. No palpitations. No PND. No orthopnea. GASTROINTESTINAL: No abdominal pain. No nausea or vomiting. No diarrhea or constipation. No hematemesis. No hematochezia. GENITOURINARY: No urgency. No frequency. No dysuria. No hematuria. No obstructive symptoms. No discharge. No pain. No significant abnormal bleeding. MUSCULOSKELETAL: No musculoskeletal pain; no joint swelling. NEUROLOGICAL: No headache. No neck pain. No syncope. No seizures. No dizziness. PSYCHIATRIC: Not anxious. No depression. No suicidal thoughts. No homicidal thoughts. SKIN: No rash. No lesions. No wounds. ENDOCRINE: No unexplained weight loss. No weight gain. HEMATOLOGIC/LYMPHATIC: No anemia. No purpura. No petechiae. No prolonged or excessive bleeding. No palpable lymph nodes. PHYSICAL EXAMINATION: GENERAL: The patient is in no distress. VITAL SIGNS: Temp 98, pulse 66, respiratory rate 18, blood pressure 113/60, pulse ox 94% HEENT: Head normocephalic, atraumatic. Eyes: Extraocular muscles are intact. Pupils are equal, round and reactive to light and accommodation. Ears: No lesions. Nose appeared normal. Throat: No exudate or erythema. NECK: Supple. LUNGS: Decreased breath sounds. Good air entry. HEART: S1, S2, no S3. ABDOMEN: Soft. EXTREMITIES: +1 to +2. NEUROLOGIC: No focal deficit. Cranial nerves II through XII are grossly intact. No headache. No double vision. SKIN: Not dry. Intact. Turgor - normal. LYMPHATIC: No palpable lymph nodes/no lymphedema. MUSCULOSKELETAL: Normal joints with no swelling. Muscle tone is normal. LABS: Hemoglobin 12.3, hematocrit 38, WBC 9,100, normal differential, creatinine 1, BUN 28, potassium 3.7 ASSESSMENT: Bronchitis seems to be resolving Chronic lung disease with exacerbation seems to be under control Leg edema seems to be somewhat better. PLAN: Continue antibiotics, steroids and nebs. His appetite has improved, encouraged patient to eat. Patient is to keep his legs up at night and cut down on salt intake. Condition: Stable TIME SPENT: More than 35 minutes. Plan and coordination of the patient's care discussed in the presence of nurse. KENTRELL
--- NOTE | 2022-06-23 16:30 | PN ---
DATE OF SERVICE: 06/22/22 SUBJECTIVE: 87 year old white male hospitalized with pneumonia. Patient has respiratory failure and bilateral leg edema, +3. Patient's condition has improved. His appetite has improved. He is cleaning up the plate. He has much less shortness of breath than what he was before. He says that he is feeling a lot better. The leg edema is less. REVIEW OF SYSTEMS: CONSTITUTIONAL: No cough. No fever or chills. HEENT: Eyes: No visual changes. No eye pain. No eye discharge. ENT: No runny nose. No epistaxis. No sinus pain. No sore throat. No odynophagia. No congestion. RESPIRATORY: No cough, no congestion. CARDIOVASCULAR: No chest pain. No palpitations. No PND. No orthopnea. GASTROINTESTINAL: No abdominal pain. No nausea or vomiting. No diarrhea or constipation. No hematemesis. No hematochezia. GENITOURINARY: No urgency. No frequency. No dysuria. No hematuria. No obstructive symptoms. No discharge. No pain. No significant abnormal bleeding. MUSCULOSKELETAL: No musculoskeletal pain; no joint swelling. NEUROLOGICAL: No headache. No neck pain. No syncope. No seizures. No dizziness. PSYCHIATRIC: Not anxious. No depression. No suicidal thoughts. No homicidal thoughts. SKIN: No rash. No lesions. No wounds. ENDOCRINE: No unexplained weight loss. No weight gain. HEMATOLOGIC/LYMPHATIC: No anemia. No purpura. No petechiae. No prolonged or excessive bleeding. No palpable lymph nodes. PHYSICAL EXAMINATION: GENERAL: The patient is in no distress. VITAL SIGNS: Temp 97.1, pulse 85, respiratory rate 16, blood pressure 101/53, pulse ox 95% HEENT: Head normocephalic, atraumatic. Eyes: Extraocular muscles are intact. Pupils are equal, round and reactive to light and accommodation. Ears: No lesions. Nose appeared normal. Throat: No exudate or erythema. NECK: Supple. LUNGS: Decreased breath sounds. Good air entry. HEART: S1, S2, no S3. ABDOMEN: Soft. Bowel sounds active. EXTREMITIES: +1 to +2 pitting edema. NEUROLOGIC: No focal deficit. Cranial nerves II through XII are grossly intact. No headache. No double vision. SKIN: Not dry. Intact. Turgor - normal. LYMPHATIC: No palpable lymph nodes/no lymphedema. MUSCULOSKELETAL: Normal joints with no swelling. Muscle tone is normal. LABS: Hemoglobin 12.5, hematocrit 39, WBC 9,000, normal differential, creatinine 1, BUN 28, potassium 3.4 ASSESSMENT: Pneumonia Leg edema Chronic lung disease PLAN: Continue diuretics Continue to elevate the legs Patient doesn't sleep in the bed, he sleeps in the recliner that is the cause of his chronic leg edema. Patient advised to take his medications on a regular basis. Patient's problem is nobody has to help him to call his medications as prescribed except for family members that come and go. It is himself most of the time and he forgets to take the medicine. Patient had hypokalemia for which potassium supplements have been given, K-Dur 20 twice a day. TIME SPENT: More than 35 minutes. Plan and coordination of the patient's care discussed in the presence of nurse. KENTRELL
[2022-06-23] MEDS: HUMULIN R SUBCUT PRN (17:32)
[2022-06-23] MEDS: PULMICORT 1 MG/2 ML NEB SCH (19:10)
[2022-06-23] MEDS: PRAVACHOL PO SCH (21:23)
[2022-06-23] MEDS: ATIVAN PO SCH (21:23)
[2022-06-24] MEDS: ALBUTEROL 0.083% NEB NEB SCH (04:55)
[2022-06-24 05:30] LABS: BASOPHILS % (AUTO) 0.1 % (0.0-3.0); EOSINOPHILS # (AUTO) 0.2 K/ul (0.0-0.7); EOSINOPHILS % (AUTO) 2.1 % (0.0-7.0); HEMATOCRIT 43.5 % (42.0-52.0); HEMOGLOBIN 13.4 g/dl (14.0-18.0); IMMATURE GRANULOCYTE # (AUTO) 0.1 (0.0-1.0); IMMATURE GRANULOCYTE % (AUTO) 0.7 % (0.0-5.0); LYMPHOCYTES # (AUTO) 0.6 K/uL (0.60-3.4); LYMPHOCYTES % (AUTO) 6.2 (10.0-50.0); MEAN CORPUSCULAR HEMOGLOBIN 30.9 pg (27.0-31.0); MEAN CORPUSCULAR HGB CONC 30.8 (31.8-35.4); MEAN CORPUSCULAR VOLUME 100.2 fl (80.0-94.0); MONOCYTES # (AUTO) 0.6 K/uL (0.4-2.0); MONOCYTES % (AUTO) 5.7 (0-10); NEUTROPHILS # (AUTO) 8.8 K/ul (2.0-6.9); NEUTROPHILS % (AUTO) 85.2 % (42.2-75.2); PLATELET COUNT 234 10^3/uL (140-440); RDW COEFFICIENT OF VARIATION 13.9 % (11.6-14.8); RED BLOOD COUNT 4.34 10^6/ul (4.70-6.10); WHITE BLOOD COUNT 10.34 K/ul (4.2-10.2)
[2022-06-24 05:43] LABS: ALANINE AMINOTRANSFERASE 37.4 U/L (0-50); ALBUMIN 3.54 g/dL (3.5-5.0); ALKALINE PHOSPHATASE 57.3 U/L (56-119); ASPARTATE AMINO TRANSFERASE 30.2 U/L (17-59); BILIRUBIN,TOTAL 0.68 mg/dL (0.2-1.3); BLOOD UREA NITROGEN 28.8 mg/dL (9-20); CALCIUM 7.55 mg/dL (8.4-10.2); CHLORIDE 95.7 mmol/L (98-107); CREATININE 1.01 mg/dL (0.60-1.10); GLUCOSE 116.1 mg/dL (74-106); POTASSIUM 4.02 mmol/L (3.5-5.1); SODIUM 138.4 mmol/L (134.5-145); TOTAL PROTEIN 6.62 g/dL (6.3-8.2)
[2022-06-24] MEDS: SYNTHROID PO SCH (05:50)
[2022-06-24] MEDS: LASIX TAB PO SCH (05:50)
[2022-06-24] MEDS: PRILOSEC PO SCH (05:50)
[2022-06-24 05:52] LABS: CARBON DIOXIDE 44.5 mmol/L (22-30.0)
[2022-06-24] MEDS: FLOMAX PO SCH (08:26)
[2022-06-24] MEDS: OMNICEF PO SCH (08:27)
[2022-06-24] MEDS: ALDACTONE PO SCH (08:27)
[2022-06-24] MEDS: GLUCOPHAGE PO SCH (08:27)
[2022-06-24] MEDS: COREG PO SCH (08:27)
[2022-06-24] MEDS: ZYLOPRIM PO SCH (08:27)
[2022-06-24] MEDS: WELLBUTRIN PO SCH (08:27)
[2022-06-24] MEDS: LEXAPRO PO SCH (08:27)
[2022-06-24] MEDS: K-DUR PO SCH ×2 (08:28→16:51)
[2022-06-24] MEDS: LOVENOX SUBCUT SCH (08:28)
[2022-06-24] MEDS: PREDNISONE PO SCH (08:28)
--- NOTE | 2022-06-24 09:21 | PCM.PROG ---
Attending Provider: ATTENDING PROVIDER: Dr. MACKENZIE FUENTES MD This patient is seen with Lizette Latham, Nurse Practitioner. DATE OF SERVICE: 06/24/22 SUBJECTIVE: This 87 year old /WHITE M was hospitalized 06/17/22. More wheezing this morning, down three more pounds. Co2 on CMP is down from yesterday. REVIEW OF SYSTEMS: CONSTITUTIONAL: No night sweats. No fatigue, malaise, lethargy. No fever or chills. HEENT: Eyes: No visual changes. No eye pain. No eye discharge. ENT: No runny nose. No epistaxis. No sinus pain. No odynophagia. No congestion. RESPIRATORY: Cough, no congestion. No hemoptysis. Shortness of breath. Wheezing. CARDIOVASCULAR: No angina symptoms. No CHF symptoms. No atypical chest pain for CAD. No palpitations. No orthopnea.. GASTROINTESTINAL: No abdominal pain. No nausea or vomiting. No diarrhea or constipation. No hematemesis. No hematochezia. GENITOURINARY: No urgency. No frequency. No dysuria. No hematuria. No obstructive symptoms. No discharge. No pain. No significant abnormal bleeding. MUSCULOSKELETAL: No musculoskeletal pain; no joint swelling. Leg edema. NEUROLOGICAL: Awake, alert, oriented to time, place and person. No headache. No neck pain. No syncope. No seizures. No dizziness. PSYCHIATRIC: Not anxious. No depression. No suicidal thoughts. No homicidal thoughts. SKIN: No rash. No lesions. No wounds. ENDOCRINE: No unexplained weight loss. No weight gain. HEMATOLOGIC/LYMPHATIC: No anemia. No purpura. No petechiae. No prolonged or excessive bleeding. No palpable lymph nodes. PHYSICAL EXAMINATION: GENERAL: The patient is awake, alert and oriented, sitting in bed in no distress. VITAL SIGNS: Temperature 97.8 F, Pulse 80, Respiratory Rate 20, BP 135/72, Pulse Ox 96% HEENT: Head normocephalic, atraumatic. Eyes: Extraocular muscles are intact. Pupils are equal, round and reactive to light and accommodation. Ears: No lesions. Nose appeared normal. Throat: No exudate or erythema. NECK: Supple. No JVD, no carotid bruit. No lymphadenopathy or thyromegaly. LUNGS: Clear to auscultation. Percussion note normal. Chest symmetrical. Bilateral rhonchi. Inspiratory and expiratory wheezing, left greater than right. HEART: S1, S2, no S3. No murmurs. No cyanosis or clubbing. No ascites. Pulses: Dorsalis pedis and posterior tibial pulses +1 to +2 both sides. ABDOMEN: Soft. Non-tender. Bowel sounds active. No CVA tenderness. No mass felt. EXTREMITIES: +1 bilateral leg edema. Full range of motion of all extremities, equal. NEUROLOGIC: No focal deficit. Cranial nerves II through XII are grossly intact. No headache. No double vision. SKIN: Not dry. Intact. Turgor-normal. LYMPHATIC: No palpable lymph nodes/no lymphedema. MUSCULOSKELETAL: Normal joints with no swelling. Muscle tone is normal. LAB REVIEW: 06/24/22 04:51 06/24/22 04:51 06/24/22 04:51: WBC 10.34 H, RBC 4.34 L, Hgb 13.4 L, Hct 43.5, MCV 100.2 H, MCH 30.9, MCHC 30.8 L, RDW Coeff of Leonardo 13.9, Plt Count 234, Immature Gran % (Auto) 0.7, Neut % (Auto) 85.2 H, Lymph % (Auto) 6.2 L, [place] % (Auto) 5.7, Eos % (Auto) 2.1, Baso % (Auto) 0.1, Neut # (Auto) 8.8 H, Lymph # (Auto) 0.6, [place] # (Auto) 0.6, Eos # (Auto) 0.2, Baso # (Auto) 0.0, Immature Gran # (Auto) 0.1, Sodium 138.4, Potassium 4.02, Chloride 95.7 L, Carbon Dioxide 44.5 H*, Anion Gap 2.22, BUN 28.8 H, Creatinine 1.01, Estimated GFR (MDRD) 70.00, BUN/Creatinine Ratio 28.51, Glucose 116.1 H, Calcium 7.55 L, Total Bilirubin 0.68, AST 30.2, ALT 37.4, Alkaline Phosphatase 57.3, Total Protein 6.62, Albumin 3.54, Globulin 3. 08, Albumin/Globulin Ratio 1.14 06/23/22 09:00: Puncture Site Rrd, Base Excess 20.8 H, O2 Saturation 96.1, ABG pH 7.53 H*, ABG pCO2 52.0 H, ABG pO2 73.0 L, ABG HCO3 43.5 H, ABG Total CO2 45.1 H, Alfonzo Test Pos, Hemoglobin 0.6, Oxyhemoglobin 94.8 L, Carboxyhemoglobin 1.9 H , Total Hemoglobin 14.3, O2 Delivery Device Cannula, Oxygen Liter Flow 2.00 ASSESSMENT: Please see below. 1. Bilateral pneumonia, improving 2. Acute on chronic respiratory failure 3. Dependent leg edema. PLAN: 1. Increase Pulmicort NEB to BID 2. Mucomyst NEB BID 3. Discontinue Albuterol NEB 4. Start DUO NEB TID scheduled. Plan and coordination of the patient's care discussed in the presence of Staffing Manager and nurse. SCRIBED BY: Mauro REDDY scribed while in presence of service performed by Lizette Latham APRN on 06/24/22 ([id number])
[2022-06-24] MEDS ORDERED: ALBUTEROL 0.083% NEB NEB ONE (10:21)
--- NOTE | 2022-06-24 12:21 | ECHO2D ---
Date of Exam: 06/23/2022 Ordering Physician: DR. FUENTES Room #: 109-1 Reason for Echo: SHORTNESS OF BREATH, DIABETES MELLITUS, CHRONIC OBSTRUCTIVE PULMONARY DISEASE, HYPERTENSION M-Mode Normal Adult Results LV Dimensions Normal Adult Results AoV Opening excursions >1.6 >1.6 LVEDD-base- 3.5-5.8 4.6 Ao root dimensions 2.0-3.7 3.4 LVESD-base- 3.1-4.6 L. Atrium dimensions 1.9-3.8 4.5 Post. Wall thickness 0.8-1.1 1.2 IV septum (thickness) 0.7-1.2 1.4 Post. Wall excursion 0.72-1.3 NORMAL Septal motion NORMAL Systolic motion R. Ventricular cavity 1.5-2.0 5.0 LVEF 60% 59% Paradoxical septal wall motion NORMAL 2-D : ENLARGED RIGHT VENTRICLE AND LEFT ATRIAL CAVITIES. 2-D M Mode Echocardiogram was performed using apical four chamber and left parasternal long and short axis views. Mitral, tricuspid and aortic valves appear to be normal. Contractility of the left ventricle seems to be normal, so is the cavity size. Left atrial cavity size is enlarged. Aortic root appears to be normal. There is no pericardial effusion. There is no thrombus noted in the left ventricle or left atrial cavity. M-MODE: MV: NORMAL AV: NORMAL TV: NORMAL PV: NORMAL CHAMBER SIZE: ENLARGED LEFT ATRIAL AND RIGHT VENTRICLE CAVITIES. WALL MOTION: NORMAL PERICARDIUM: NORMAL INTERPRETATION: 1. LEFT VENTRICULAR HYPERTROPHY WITH ENLARGED LEFT ATRIAL CAVITY. 2. ENLARGED RIGHT VENTRICLE CAVITY. 3. NORMAL LEFT VENTRICULAR CONTRACTILITY AND LEFT VENTRICLE SIZE. 4. NORMAL VALVES. MTDD
[2022-06-24] MEDS: DUONEB NEB SCH ×2 (14:22→20:10)
[2022-06-24] MEDS: HUMULIN R SUBCUT PRN ×2 (17:16→21:20)
[2022-06-24] MEDS ORDERED: MUCOMYST 20% NEB NEB SCH (18:00)
[2022-06-24] MEDS ORDERED: PULMICORT 1 MG/2 ML NEB SCH (18:00)
[2022-06-24] MEDS: MUCOMYST 20% NEB NEB SCH (20:10)
[2022-06-24] MEDS: PULMICORT 1 MG/2 ML NEB SCH (20:10)
[2022-06-24] MEDS ORDERED: ATIVAN IVP ONE (20:47)
[2022-06-24] MEDS: ATIVAN PO SCH (20:52)
[2022-06-24] MEDS: PRAVACHOL PO SCH (20:53)
[2022-06-25] MEDS: DUONEB NEB SCH ×3 (04:45→20:20)
[2022-06-25] MEDS: PULMICORT 1 MG/2 ML NEB SCH ×2 (04:45→20:20)
[2022-06-25] MEDS: MUCOMYST 20% NEB NEB SCH ×2 (04:45→20:20)
[2022-06-25 04:58] LABS: EOSINOPHILS # (AUTO) 0.4 K/ul (0.0-0.7); EOSINOPHILS % (AUTO) 4.1 % (0.0-7.0); HEMATOCRIT 43.9 % (42.0-52.0); HEMOGLOBIN 13.4 g/dl (14.0-18.0); IMMATURE GRANULOCYTE # (AUTO) 0.1 (0.0-1.0); IMMATURE GRANULOCYTE % (AUTO) 0.7 % (0.0-5.0); LYMPHOCYTES # (AUTO) 0.5 K/uL (0.60-3.4); LYMPHOCYTES % (AUTO) 5.1 (10.0-50.0); MEAN CORPUSCULAR HEMOGLOBIN 30.7 pg (27.0-31.0); MEAN CORPUSCULAR HGB CONC 30.5 (31.8-35.4); MEAN CORPUSCULAR VOLUME 100.5 fl (80.0-94.0); MONOCYTES # (AUTO) 0.6 K/uL (0.4-2.0); MONOCYTES % (AUTO) 6.1 (0-10); NEUTROPHILS # (AUTO) 8.5 K/ul (2.0-6.9); PLATELET COUNT 222 10^3/uL (140-440); RDW COEFFICIENT OF VARIATION 14.1 % (11.6-14.8); RED BLOOD COUNT 4.37 10^6/ul (4.70-6.10); WHITE BLOOD COUNT 10.15 K/ul (4.2-10.2)
[2022-06-25 05:09] LABS: ALANINE AMINOTRANSFERASE 32.6 U/L (0-50); ALBUMIN 3.51 g/dL (3.5-5.0); ALKALINE PHOSPHATASE 56.2 U/L (56-119); ASPARTATE AMINO TRANSFERASE 27.1 U/L (17-59); BILIRUBIN,TOTAL 0.52 mg/dL (0.2-1.3); BLOOD UREA NITROGEN 26.8 mg/dL (9-20); CALCIUM 7.85 mg/dL (8.4-10.2); CHLORIDE 97.4 mmol/L (98-107); CREATININE 0.97 mg/dL (0.60-1.10); GLUCOSE 90.6 mg/dL (74-106); POTASSIUM 4.52 mmol/L (3.5-5.1); SODIUM 138.4 mmol/L (134.5-145); TOTAL PROTEIN 6.63 g/dL (6.3-8.2)
[2022-06-25 05:16] LABS: CARBON DIOXIDE 41.4 mmol/L (22-30.0)
[2022-06-25] MEDS: LASIX TAB PO SCH (05:32)
[2022-06-25] MEDS: SYNTHROID PO SCH (05:33)
[2022-06-25] MEDS: PRILOSEC PO SCH (05:33)
[2022-06-25] MEDS: FLOMAX PO SCH (08:38)
[2022-06-25] MEDS: COREG PO SCH (08:38)
[2022-06-25] MEDS: WELLBUTRIN PO SCH (08:38)
[2022-06-25] MEDS: K-DUR PO SCH ×2 (08:39→16:36)
[2022-06-25] MEDS: ALDACTONE PO SCH (08:39)
[2022-06-25] MEDS: GLUCOPHAGE PO SCH (08:39)
[2022-06-25] MEDS: ZYLOPRIM PO SCH (08:39)
[2022-06-25] MEDS: LEXAPRO PO SCH (08:39)
[2022-06-25] MEDS: PREDNISONE PO SCH (08:39)
[2022-06-25] MEDS: LOVENOX SUBCUT SCH (08:39)
[2022-06-25] MEDS ORDERED: MORPHINE 2 MG/ML SYRINGE IVP STA (10:53)
[2022-06-25] MEDS ORDERED: DECADRON IM STA (12:55)
[2022-06-25] MEDS ORDERED: MORPHINE 2 MG/ML SYRINGE IVP PRN (12:56)
[2022-06-25] MEDS: HUMULIN R SUBCUT PRN ×2 (17:00→20:40)
[2022-06-25] MEDS: ATIVAN PO SCH (20:40)
[2022-06-25] MEDS: PRAVACHOL PO SCH (20:40)
[2022-06-26] MEDS: PULMICORT 1 MG/2 ML NEB SCH ×2 (04:55→19:33)
[2022-06-26] MEDS: DUONEB NEB SCH ×3 (04:55→19:33)
[2022-06-26] MEDS: MUCOMYST 20% NEB NEB SCH ×2 (04:55→19:33)
[2022-06-26 05:36] LABS: BASOPHILS % (AUTO) 0.1 % (0.0-3.0); EOSINOPHILS # (AUTO) 0.1 K/ul (0.0-0.7); EOSINOPHILS % (AUTO) 0.8 % (0.0-7.0); HEMATOCRIT 40.3 % (42.0-52.0); HEMOGLOBIN 12.7 g/dl (14.0-18.0); IMMATURE GRANULOCYTE % (AUTO) 0.4 % (0.0-5.0); LYMPHOCYTES # (AUTO) 0.5 K/uL (0.60-3.4); LYMPHOCYTES % (AUTO) 6.2 (10.0-50.0); MEAN CORPUSCULAR HEMOGLOBIN 30.9 pg (27.0-31.0); MEAN CORPUSCULAR HGB CONC 31.5 (31.8-35.4); MEAN CORPUSCULAR VOLUME 98.1 fl (80.0-94.0); MONOCYTES # (AUTO) 0.6 K/uL (0.4-2.0); MONOCYTES % (AUTO) 7.5 (0-10); NEUTROPHILS # (AUTO) 6.6 K/ul (2.0-6.9); PLATELET COUNT 177 10^3/uL (140-440); RDW COEFFICIENT OF VARIATION 13.7 % (11.6-14.8); RED BLOOD COUNT 4.11 10^6/ul (4.70-6.10); WHITE BLOOD COUNT 7.74 K/ul (4.2-10.2)
[2022-06-26] MEDS: SYNTHROID PO SCH (05:40)
[2022-06-26 05:41] LABS: ALANINE AMINOTRANSFERASE 29.9 U/L (0-50); ALBUMIN 3.42 g/dL (3.5-5.0); ALKALINE PHOSPHATASE 51.8 U/L (56-119); ASPARTATE AMINO TRANSFERASE 28.4 U/L (17-59); BILIRUBIN,TOTAL 0.66 mg/dL (0.2-1.3); BLOOD UREA NITROGEN 26.5 mg/dL (9-20); CALCIUM 7.91 mg/dL (8.4-10.2); CARBON DIOXIDE 35.5 mmol/L (22-30.0); CHLORIDE 96.5 mmol/L (98-107); CREATININE 0.76 mg/dL (0.60-1.10); GLUCOSE 127.7 mg/dL (74-106); POTASSIUM 5.5 mmol/L (3.5-5.1); SODIUM 133.2 mmol/L (134.5-145); TOTAL PROTEIN 6.53 g/dL (6.3-8.2)
[2022-06-26] MEDS: PRILOSEC PO SCH (05:41)
[2022-06-26] MEDS: LASIX TAB PO SCH (05:41)
[2022-06-26] MEDS ORDERED: KAYEXALATE SUSP PO ONE (08:23)
--- NOTE | 2022-06-26 08:55 | PCM.PROG ---
Attending Provider: ATTENDING PROVIDER: Dr. MACKENZIE FUENTES MD This patient is seen with Lizette Latham, Nurse Practitioner. DATE OF SERVICE: 06/26/22 SUBJECTIVE: This 87 year old /WHITE M was hospitalized 06/17/22. Breathing has improved. Potassium is up to 5.5. We will discontinue PO Potassium and give 25 grams Kayexalate. REVIEW OF SYSTEMS: CONSTITUTIONAL: No night sweats. No fatigue, malaise, lethargy. No fever or chills. Weakness. HEENT: Eyes: No visual changes. No eye pain. No eye discharge. ENT: No runny nose. No epistaxis. No sinus pain. No odynophagia. No congestion. RESPIRATORY: No cough, no congestion. No hemoptysis. Shortness of breath. CARDIOVASCULAR: No angina symptoms. No CHF symptoms. No atypical chest pain for CAD. No palpitations. No orthopnea.. GASTROINTESTINAL: No abdominal pain. No nausea or vomiting. No diarrhea or constipation. No hematemesis. No hematochezia. GENITOURINARY: No urgency. No frequency. No dysuria. No hematuria. No obstructive symptoms. No discharge. No pain. No significant abnormal bleeding. MUSCULOSKELETAL: No musculoskeletal pain; no joint swelling. NEUROLOGICAL: Awake, alert, oriented to time, place and person. No headache. No neck pain. No syncope. No seizures. No dizziness. PSYCHIATRIC: Not anxious. No depression. No suicidal thoughts. No homicidal thoughts. SKIN: No rash. No lesions. No wounds. Leg edema. ENDOCRINE: No unexplained weight loss. No weight gain. HEMATOLOGIC/LYMPHATIC: No anemia. No purpura. No petechiae. No prolonged or excessive bleeding. No palpable lymph nodes. PHYSICAL EXAMINATION: GENERAL: The patient is awake, alert and oriented, sitting in bed in no distress. VITAL SIGNS: Temperature 97.7 F, Pulse 79, Respiratory Rate 20, BP 104/68, Pulse Ox 97% HEENT: Head normocephalic, atraumatic. Eyes: Extraocular muscles are intact. Pupils are equal, round and reactive to light and accommodation. Ears: No lesions. Nose appeared normal. Throat: No exudate or erythema. NECK: Supple. No JVD, no carotid bruit. No lymphadenopathy or thyromegaly. LUNGS: Diminished breath sounds. Clear to auscultation. Percussion note normal. Chest symmetrical. HEART: S1, S2, no S3. No murmurs. No cyanosis or clubbing. No ascites. Pulses: Dorsalis pedis and posterior tibial pulses +1 to +2 both sides. ABDOMEN: Soft. Non-tender. Bowel sounds active. No CVA tenderness. No mass felt. EXTREMITIES: Trace bilateral leg edema. Full range of motion of all extremities, equal. NEUROLOGIC: No focal deficit. Cranial nerves II through XII are grossly intact. No headache. No double vision. SKIN: Not dry. Intact. Turgor-normal. LYMPHATIC: No palpable lymph nodes/no lymphedema. MUSCULOSKELETAL: Normal joints with no swelling. Muscle tone is normal. LAB REVIEW: 06/26/22 05:00 06/26/22 04:46 06/26/22 05:00: WBC 7.74, RBC 4.11 L, Hgb 12.7 L, Hct 40.3 L, MCV 98.1 H, MCH 30.9, MCHC 31.5 L, RDW Coeff of Leonardo 13.7, Plt Count 177, Immature Gran % (Auto) 0.4, Neut % (Auto) 85.0 H, Lymph % (Auto) 6.2 L, [place] % (Auto) 7.5, Eos % (Auto) 0.8, Baso % (Auto) 0.1, Neut # (Auto) 6.6, Lymph # (Auto) 0.5 L, [place] # (Auto) 0.6, Eos # (Auto) 0.1, Baso # (Auto) 0.0, Immature Gran # (Auto) 0.0 06/26/22 04:46: Sodium 133.2 L, Potassium 5.50 H, Chloride 96.5 L, Carbon Dioxide 35.5 H, Anion Gap 6.70, BUN 26.5 H, Creatinine 0.76, Estimated GFR (MDRD) 97.00, BUN/Creatinine Ratio 34.86, Glucose 127.7 H, Calcium 7.91 L, Total Bilirubin 0.66, AST 28.4, ALT 29.9, Alkaline Phosphatase 51.8 L, Total Protein 6.53, Albumin 3.42 L, Globulin 3.11, Albumin/Globulin Ratio 1.09 ASSESSMENT: Please see below. 1. Hyperkalemia 2. Bilateral pneumonia 3. Acute on chronic respiratory failure 4. Cor Pulmonale 5. Dependent leg edema PLAN: 1. Discontinue Potassium 2. 25 gram Kayexalate Plan and coordination of the patient's care discussed in the presence of Carpet Technician and nurse. SCRIBED BY: Mauro REDDY scribed while in presence of service performed by Lizette Latham APRN on 06/26/22 ([id number])
[2022-06-26] MEDS ORDERED: DECADRON IM ONE (09:00)
[2022-06-26] MEDS: FLOMAX PO SCH (09:01)
[2022-06-26] MEDS: WELLBUTRIN PO SCH (09:01)
[2022-06-26] MEDS: LEXAPRO PO SCH (09:01)
[2022-06-26] MEDS: PREDNISONE PO SCH (09:01)
[2022-06-26] MEDS: COREG PO SCH (09:02)
[2022-06-26] MEDS: GLUCOPHAGE PO SCH (09:02)
[2022-06-26] MEDS: ZYLOPRIM PO SCH (09:02)
[2022-06-26] MEDS: ALDACTONE PO SCH (09:02)
[2022-06-26] MEDS: LOVENOX SUBCUT SCH (09:12)
[2022-06-26] MEDS: HUMULIN R SUBCUT PRN (16:48)
[2022-06-26] MEDS: PRAVACHOL PO SCH (20:11)
[2022-06-26] MEDS: ATIVAN PO SCH (20:11)
[2022-06-27] MEDS: PULMICORT 1 MG/2 ML NEB SCH (04:50)
[2022-06-27] MEDS: DUONEB NEB SCH ×2 (04:50→14:32)
[2022-06-27] MEDS: MUCOMYST 20% NEB NEB SCH (04:50)
[2022-06-27 05:40] LABS: ALANINE AMINOTRANSFERASE 30.4 U/L (0-50); ALBUMIN 3.34 g/dL (3.5-5.0); ALKALINE PHOSPHATASE 50.6 U/L (56-119); BILIRUBIN,TOTAL 0.61 mg/dL (0.2-1.3); BLOOD UREA NITROGEN 28.9 mg/dL (9-20); CALCIUM 7.96 mg/dL (8.4-10.2); CARBON DIOXIDE 36.1 mmol/L (22-30.0); CHLORIDE 96.1 mmol/L (98-107); CREATININE 0.93 mg/dL (0.60-1.10); GLUCOSE 148.4 mg/dL (74-106); POTASSIUM 4.62 mmol/L (3.5-5.1); SODIUM 133.5 mmol/L (134.5-145); TOTAL PROTEIN 6.3 g/dL (6.3-8.2)
[2022-06-27 06:05] LABS: BASOPHILS % (AUTO) 0.1 % (0.0-3.0); EOSINOPHILS # (AUTO) 0.1 K/ul (0.0-0.7); EOSINOPHILS % (AUTO) 0.7 % (0.0-7.0); HEMATOCRIT 42.1 % (42.0-52.0); HEMOGLOBIN 13.1 g/dl (14.0-18.0); IMMATURE GRANULOCYTE # (AUTO) 0.1 (0.0-1.0); IMMATURE GRANULOCYTE % (AUTO) 0.5 % (0.0-5.0); LYMPHOCYTES # (AUTO) 0.8 K/uL (0.60-3.4); MEAN CORPUSCULAR HEMOGLOBIN 30.8 pg (27.0-31.0); MEAN CORPUSCULAR HGB CONC 31.1 (31.8-35.4); MEAN CORPUSCULAR VOLUME 99.1 fl (80.0-94.0); MONOCYTES # (AUTO) 0.8 K/uL (0.4-2.0); MONOCYTES % (AUTO) 8.5 (0-10); NEUTROPHILS # (AUTO) 7.4 K/ul (2.0-6.9); NEUTROPHILS % (AUTO) 81.2 % (42.2-75.2); PLATELET COUNT 219 10^3/uL (140-440); RDW COEFFICIENT OF VARIATION 13.9 % (11.6-14.8); RED BLOOD COUNT 4.25 10^6/ul (4.70-6.10); WHITE BLOOD COUNT 9.16 K/ul (4.2-10.2)
[2022-06-27] MEDS: PRILOSEC PO SCH (06:10)
[2022-06-27] MEDS: LASIX TAB PO SCH (06:10)
[2022-06-27] MEDS: SYNTHROID PO SCH (06:11)
[2022-06-27] MEDS: LEXAPRO PO SCH (09:23)
[2022-06-27] MEDS: GLUCOPHAGE PO SCH (09:23)
[2022-06-27] MEDS: PREDNISONE PO SCH (09:24)
[2022-06-27] MEDS: ZYLOPRIM PO SCH (09:24)
[2022-06-27] MEDS: WELLBUTRIN PO SCH (09:25)
[2022-06-27] MEDS: COREG PO SCH (09:25)
[2022-06-27] MEDS: ALDACTONE PO SCH (09:25)
[2022-06-27] MEDS: FLOMAX PO SCH (09:25)
[2022-06-27] MEDS: LOVENOX SUBCUT SCH (09:26)
--- NOTE | 2022-06-27 09:38 | PCM.PROG ---
Attending Provider: ATTENDING PROVIDER: Dr. MACKENZIE FUENTES MD This patient is seen with Lizette Latham, Nurse Practitioner. DATE OF SERVICE: 06/27/22 SUBJECTIVE: This 87 year old /WHITE M was hospitalized 06/17/22. Potassium has improved today at 4.6. Labs are stable. Leg edema has improved. Has has been on 3 liters at 95% and he has oxygen at home along with nebulizer machine. Home He alth is going to come for PT/OT and nursing. REVIEW OF SYSTEMS: CONSTITUTIONAL: No night sweats. No fatigue, malaise, lethargy. No fever or chills. HEENT: Eyes: No visual changes. No eye pain. No eye discharge. ENT: No runny nose. No epistaxis. No sinus pain. No odynophagia. No congestion. RESPIRATORY: Cough, no congestion. No hemoptysis. Shortness of breath. CARDIOVASCULAR: No angina symptoms. No CHF symptoms. No atypical chest pain for CAD. No palpitations. No orthopnea.. GASTROINTESTINAL: No abdominal pain. No nausea or vomiting. No diarrhea or constipation. No hematemesis. No hematochezia. GENITOURINARY: No urgency. No frequency. No dysuria. No hematuria. No obstructive symptoms. No discharge. No pain. No significant abnormal bleeding. MUSCULOSKELETAL: No musculoskeletal pain; no joint swelling. Weakness. NEUROLOGICAL: Awake, alert, oriented to time, place and person. No headache. No neck pain. No syncope. No seizures. No dizziness. PSYCHIATRIC: Not anxious. No depression. No suicidal thoughts. No homicidal thoughts. SKIN: No rash. No lesions. No wounds. ENDOCRINE: No unexplained weight loss. No weight gain. HEMATOLOGIC/LYMPHATIC: No anemia. No purpura. No petechiae. No prolonged or excessive bleeding. No palpable lymph nodes. PHYSICAL EXAMINATION: GENERAL: The patient is awake, alert and oriented, lying in bed in no distress. VITAL SIGNS: Temperature 97.9 F, Pulse 78, Respiratory Rate 18, BP 129/72, Pulse Ox 95% HEENT: Head normocephalic, atraumatic. Eyes: Extraocular muscles are intact. Pupils are equal, round and reactive to light and accommodation. Ears: No lesions. Nose appeared normal. Throat: No exudate or erythema. NECK: Supple. No JVD, no carotid bruit. No lymphadenopathy or thyromegaly. LUNGS: Diminished breath sounds. Clear to auscultation. Percussion note normal. Chest symmetrical. HEART: S1, S2, no S3. No murmurs. No cyanosis or clubbing. No ascites. Pulses: Dorsalis pedis and posterior tibial pulses +1 to +2 both sides. ABDOMEN: Soft. Non-tender. Bowel sounds active. No CVA tenderness. No mass felt. EXTREMITIES: Trace bilateral leg edema. Full range of motion of all extremities, equal. NEUROLOGIC: No focal deficit. Cranial nerves II through XII are grossly intact. No headache. No double vision. SKIN: Not dry. Intact. Turgor-normal. LYMPHATIC: No palpable lymph nodes/no lymphedema. MUSCULOSKELETAL: Normal joints with no swelling. Muscle tone is normal. LAB REVIEW: 06/27/22 05:01 06/27/22 05:01 06/27/22 05:01: WBC 9.16, RBC 4.25 L, Hgb 13.1 L, Hct 42.1, MCV 99.1 H, MCH 30.8, MCHC 31.1 L, RDW Coeff of Leonardo 13.9, Plt Count 219, Immature Gran % (Auto) 0.5, Neut % (Auto) 81.2 H, Lymph % (Auto) 9.0 L, [place] % (Auto) 8.5, Eos % (Auto) 0.7, Baso % (Auto) 0.1, Neut # (Auto) 7.4 H, Lymph # (Auto) 0.8, [place] # (Auto) 0.8, Eos # (Auto) 0.1, Baso # (Auto) 0.0, Immature Gran # (Auto) 0.1, Sodium 133.5 L, Potassium 4.62, Chloride 96.1 L, Carbon Dioxide 36.1 H, Anion Gap 5.92, BUN 28.9 H, Creatinine 0.93, Estimated GFR (MDRD) 77.00, BUN/Creatinine Ratio 31.07, Glucose 148.4 H, Calcium 7.96 L, Total Bilirubin 0.61, AST 27.0, ALT 30.4, Alkaline Phosphatase 50.6 L, Total Protein 6.30, Albumin 3.34 L, Globulin 2.96, Albumin/Globulin Ratio 1.12 ASSESSMENT: Please see below. 1. Bilateral pneumonia 2. Hyperkalemia, resolved 3. Depression 4. Acute on chronic respiratory failure 5. Core Pulmonale 6. Leg edema PLAN: 1. Discharge home 2. Continue breathing treatments three times a day for the next two weeks 3. Prednisone 10mg daily for 5 days 4. Omnicef 300mg BID for 5 days 5. Wellbutrin 75mg daily 6. Would benefit from Home Health for PT/OT and nursing 7. Continue to followup with Dr. Hernandez and Dr. Wheeler for left lobar mass. mi home Plan and coordination of the patient's care discussed in the presence of Jet Mechanic and nurse. SCRIBED BY: Mauro REDDY scribed while in presence of service performed by Lizette Latham APRN on 06/27/22 ([id number])
[2022-06-27 14:33] VITALS: BP 111/68; RESP 22; TEMP 96.3
--- NOTE | 2022-06-27 18:15 | PN ---
DATE OF SERVICE: 06/23/22 SUBJECTIVE: Patient was seen and examined with the nurse practitioner. Patient's condition has improved some but he feels tired. His appetite has improved but is not feeling that well. TIME SPENT: More than 35 minutes. Plan and coordination of the patient's care discussed in the presence of nurse. KENTRELL
--- NOTE | 2022-06-27 18:19 | PN ---
DATE OF SERVICE: 06/24/22 SUBJECTIVE: Patient was seen and examined with the nurse practitioner. Patient's respiratory status seems to have deteriorated likely from aspiration retaining more CO2. We will continue to monitor patient's respiratory status. TIME SPENT: More than 35 minutes. Plan and coordination of the patient's care discussed in the presence of nurse. KENTRELL
--- NOTE | 2022-06-27 18:23 | PN ---
DATE OF SERVICE: 06/26/22 SUBJECTIVE: Patient was seen and examined with the nurse practitioner. Patient's condition seems to be improved but his potassium is 5.5. We will monitor and treat. TIME SPENT: More than 35 minutes. Plan and coordination of the patient's care discussed in the presence of nurse. KENTRELL
--- NOTE | 2022-06-27 18:31 | PN ---
DATE OF SERVICE: 06/25/22 SUBJECTIVE: 87 year old white male seen and examined today. Patient's condition seems to have stabilized. The Morphine has helped. Patient has been in distress with shortness of breath for past 24 hours. He was given Ativan for anxiety and Morphine sulfate this morning has helped. He has calmed down. His blood gases have been deteriorating. Patient may have aspirated, that is the only explanation. Other possibilities are a possibility of emboli which is very difficult to rule out as he is not in a position to undergo any testing at present time. He doesn't want further testing anyway. REVIEW OF SYSTEMS: CONSTITUTIONAL: No fever or chills. HEENT: Eyes: No visual changes. No eye pain. No eye discharge. ENT: No runny nose. No epistaxis. No sinus pain. No sore throat. No odynophagia. No congestion. RESPIRATORY: Shortness of breath which seems to be better with Morphine sulfate. CARDIOVASCULAR: No chest pain. No palpitations. No PND. No orthopnea. GASTROINTESTINAL: No abdominal pain. No nausea or vomiting. No diarrhea or constipation. No hematemesis. No hematochezia. GENITOURINARY: No urgency. No frequency. No dysuria. No hematuria. No obstructive symptoms. No discharge. No pain. No significant abnormal bleeding. MUSCULOSKELETAL: No musculoskeletal pain; no joint swelling. NEUROLOGICAL: No headache. No neck pain. No syncope. No seizures. No dizziness. PSYCHIATRIC: Not anxious. No depression. No suicidal thoughts. No homicidal thoughts. SKIN: No rash. No lesions. No wounds. ENDOCRINE: No unexplained weight loss. No weight gain. HEMATOLOGIC/LYMPHATIC: No anemia. No purpura. No petechiae. No prolonged or excessive bleeding. No palpable lymph nodes. PHYSICAL EXAMINATION: GENERAL: The patient is , lying/sitting in bed in no distress. VITAL SIGNS: Temperature 96.9, pulse 80, respiratory rate 18, blood pressure 124/82, pulse ox 95% on 2 liters. HEENT: Head normocephalic, atraumatic. Eyes: Extraocular muscles are intact. Pupils are equal, round and reactive to light and accommodation. Ears: No lesions. Nose appeared normal. Throat: No exudate or erythema. NECK: Supple. No JVD, no carotid bruit. No lymphadenopathy or thyromegaly. LUNGS: Decreased breath sounds. HEART: S1, S2, no S3. ABDOMEN: Soft. EXTREMITIES: +1 pitting edema. NEUROLOGIC: No focal deficit. Cranial nerves II through XII are grossly intact. No headache. No double vision. SKIN: Not dry. Intact. Turgor - normal. LYMPHATIC: No palpable lymph nodes/no lymphedema. MUSCULOSKELETAL: Normal joints with no swelling. Muscle tone is normal. LABS: Hemoglobin 13.4, hematocrit 43, WBC 10,000, normal differential, creatinine 0.9, BUN 26, potassium 4.5 ASSESSMENT: 1. RESPIRATORY DISTRESS SEEMS TO BE UNDER CONTROL 2. WORSENING OF COPD WITH MORE CO2 RETENTION, HE IS BREATHING MUCH BETTER NOW. NO CHF SYMPTOMS. PLAN: 1. Give 1 cc of Decadron. 2 Patient is going to be continued on Prednisone 20 and also Morphine sulfate 2 mg every 3-4 hourly for any shortness of breath and anxiety. . TIME SPENT: More than 35 minutes. Plan and coordination of the patient's care discussed in the presence of nurse. KENTRELL
--- NOTE | 2022-07-01 10:27 | HOLTER ---
PATIENT INFORMATION AND COMMENTS Attending Physician: DR. MACKENZIE FUENTES Indications: PALPITATIONS __ Patient Medications: ALLOPURINOL, CARVEDILOL, FUROSEMIDE, INSULIN, LEVOTHYROXINE, LORAZEPAM, METFORMIN, PRAVASTATIN __ Pre-procedure Summary: Protocol: Standard Heart Rate Started: 06/27/2022 Minimum: 65 BPM Weight: 212 LBS Ended: 06/28/2022 Maximum: 128 BPM Height: 72" Duration: 24 HRS Average: 79 BPM _ INTERPRETATIONS/OBSERVATIONS: 1. BASIC RHYTHM: SINUS, RATE 65 BPM TO 128 BPM, AVERAGE 79 BPM 2. PAC'S NOTED- FREQUENT, INFREQUENT PVC'S, FEW SHORT RUNS OF SVT WITH RATE [address]-T WAVE CHANGES FROM BASELINE 4. DIARY NOT AVAILABLE MTDD
== END 2022-06-27 15:15 | disposition home health service (06) | DRG 189 ==
LOC: ED 15:10 → MEDSURG A 17:31
PROVIDERS: ADMIT Internal Medicine; ATTEND Internal Medicine
DX: J96.22 Acute and chronic respiratory failure with hypercapnia; Z20.822 Contact with and (suspected) exposure to COVID-19; C34.12 Malignant neoplasm of upper lobe, left bronchus or lung; J18.9 Pneumonia, unspecified organism; I27.81 Cor pulmonale (chronic); R06.2 Wheezing; R05.9 Cough, unspecified; Z79.899 Other long term (current) drug therapy; R60.0 Localized edema; F32.A Depression, unspecified

== ENCOUNTER 2022-08-04 10:52 | Inpatient (IN) ==
[2022-08-04] MEDS ORDERED: ALBUTEROL 0.083% NEB NEB STA (11:31)
[2022-08-04] MEDS ORDERED: SOLU-MEDROL 125 MG IVP ONE (11:31)
[2022-08-04] MEDS ORDERED: LASIX IVP ONE (11:31)
[2022-08-04 11:44] LABS: BASOPHILS # (AUTO) 0.1 K/uL (0-0.2); BASOPHILS % (AUTO) 0.4 % (0.0-3.0); EOSINOPHILS % (AUTO) 0.3 % (0.0-7.0); HEMOGLOBIN 12.4 g/dl (14.0-18.0); IMMATURE GRANULOCYTE % (AUTO) 0.2 % (0.0-5.0); LYMPHOCYTES # (AUTO) 0.8 K/uL (0.60-3.4); LYMPHOCYTES % (AUTO) 6.5 (10.0-50.0); MEAN CORPUSCULAR HEMOGLOBIN 30.8 pg (27.0-31.0); MEAN CORPUSCULAR VOLUME 99.3 fl (80.0-94.0); MONOCYTES % (AUTO) 7.8 (0-10); NEUTROPHILS # (AUTO) 10.6 K/ul (2.0-6.9); NEUTROPHILS % (AUTO) 84.8 % (42.2-75.2); PLATELET COUNT 213 10^3/uL (140-440); RDW COEFFICIENT OF VARIATION 14.9 % (11.6-14.8); RED BLOOD COUNT 4.03 10^6/ul (4.70-6.10); WHITE BLOOD COUNT 12.47 K/ul (4.2-10.2)
[2022-08-04 11:59] LABS: ALANINE AMINOTRANSFERASE 13.1 U/L (0-50); ALBUMIN 3.93 g/dL (3.5-5.0); ALKALINE PHOSPHATASE 66.5 U/L (56-119); ASPARTATE AMINO TRANSFERASE 25.3 U/L (17-59); BILIRUBIN,TOTAL 1.51 mg/dL (0.2-1.3); BLOOD UREA NITROGEN 17.6 mg/dL (9-20); CHLORIDE 93.1 mmol/L (98-107); CREATININE 0.89 mg/dL (0.60-1.10); GLUCOSE 135.5 mg/dL (74-106); POTASSIUM 3.32 mmol/L (3.5-5.1); SODIUM 136.8 mmol/L (134.5-145); TOTAL PROTEIN 7.06 g/dL (6.3-8.2)
--- NOTE | 2022-08-04 12:00 | DI ---
EXAM: CHEST RADIOGRAPH TECHNIQUE: Single frontal chest radiograph. HISTORY: Shortness of breath. COMPARISON: 06/23/2022 FINDINGS: Chronic infiltrate and atelectasis noted in the left base. Right lung is clear. The heart is not enlarged and no pleural effusion. IMPRESSION: 1. Chronic left lower lobe infiltrate.
[2022-08-04 12:07] LABS: CARBON DIOXIDE 39.3 mmol/L (22-30.0)
[2022-08-04 12:23] LABS: TROPONIN I < 0.012 ng/ml (0.0000-0.120)
[2022-08-04 12:25] LABS: BEecf 18.7 (-2.0-3.0); HCO3 41.6 (21-28); MetHb 1.1 (0-1.5); TCO2 43.2 (19-24); sO2 94.5 % (94-98); tHb 13.2 g/dl (11.7-17.4)
[2022-08-04 12:26] LABS: ABG PH 7.52 (7.35-7.45)
--- NOTE | 2022-08-04 12:26 | ED.PDOC ---
General ED Provider: Dr. BECCA EGNA MD Chief Complaint: Shortness of Air Stated Complaint: Shortness of breath Time Seen by Provider: 08/04/22 11:31 Information Source: Patient Primary Care Provider: MACKENZIE JERRY MD Nursing and Triage Documentation Reviewed and Agree: Yes Does patient meet sepsis criteria?: No System Inflammatory Response Syndrome: Not Applicable Sepsis Protocol: For patient's 13 years and over: Temp is 96.8 and below OR 101 and greater Pulse >90 BPM Resp >20/minute Acutely Altered Mental Status Are patient's symptoms suggestive of a new infection, such as: -Pneumonia -Skin, Soft Tissue -Endocarditis -UTI -Bone, Joint Infection -Implantable Device -Acute Abdominal Infection -Wound Infection -Meningitis -Blood Stream Catheter Infection -Unknown Review of Systems Review Of Systems Constitutional: Reports Weakness Eyes: Reports No symptoms Ears, Nose, Mouth, Throat: Reports No symptoms Respiratory: Reports Short of air and Wheezing Cardiac: Reports Chest pain GI: Reports No symptoms : Reports No symptoms Musculoskeletal: Reports No symptoms Skin: Reports No symptoms Neurological: Reports No symptoms Endocrine: Reports No symptoms Hematologic/Lymphatic: Reports No symptoms All Other Systems: Reviewed and Negative [facility] Medical History B12 deficiency E53.8 - Deficiency of other specified B group vitamins (ICD-10) BPH (benign prostatic hyperplasia) N40.0 - BENIGN PROSTATIC HYPERPLASIA WITHOUT LOWER URINRY TRACT SYMP (ICD- 10) Cellulitis L03.90 - Cellulitis, unspecified (ICD-10) CHF (congestive heart failure) I50.9 - HEART FAILURE, UNSPECIFIED (ICD-10) CKD (chronic kidney disease) N18.9 - CHRONIC KIDNEY DISEASE, UNSPECIFIED (ICD-10) COPD (chronic obstructive pulmonary disease) J44.9 - CHRONIC OBSTRUCTIVE PULMONARY DISEASE, UNSPECIFIED (ICD-10) COR (chronic cor pulmonale) I27.81 - COR PULMONALE (CHRONIC) (ICD-10) Cor pulmonale I27.81 - Cor pulmonale (chronic) (ICD-10) Diabetes mellitus type 2 in obese E11.9 - TYPE 2 DIABETES MELLITUS WITHOUT COMPLICATIONS (ICD-10) Dyslipidemia E78.4 - OTHER HYPERLIPIDEMIA * DO NOT USE * (ICD-10) Essential (primary) hypertension I10 - ESSENTIAL (PRIMARY) HYPERTENSION (ICD-10) Hypothyroidism E03.9 - Hypothyroidism, unspecified (ICD-10) Mass of upper lobe of left lung R91.8 - Other nonspecific abnormal finding of lung field (ICD-10) Skin cancer C44.90 - UNSPECIFIED MALIGNANT NEOPLASM OF SKIN, UNSPECIFIED (ICD-10) Family History GRANDDAUGHTER No problems noted. FATHER Heart disease BROTHER Heart disease Other No known health problems Social History Smoking and tobacco status: Former smoker Quit status: has quit before Alcohol intake: former Substance use type: does not use Household members: none Housing: house Lives independently: Yes Number of children: 0 service: Yes Current occupational status: retired Pets and animals: Yes Current gender identity: male Seatbelt use: always Drives intoxicated or rides with intoxicated goat driver: No Water heater temperature set < 120 degrees: Yes Working smoke detector in home: Yes Fire extinguisher in home: Yes Carbon monoxide detector in home: Yes Firearms in home: Yes Physical Exam Physical Exam Appearance: Reports Ill-appearing Ill-appearing: Moderate Pain Distress: None Eyes: Reports NATHAN and EOMI ENT: Reports Ears normal and Nose normal Neck: Supple Respiratory: Reports Breath sounds diminished and Wheezes Cardiovascular: Reports RRR, Pulses normal and No rub GI/: Reports Soft and Nontender Musculoskeletal: Reports Edema (3+ BLE) Skin: Reports Warm Neurological: Reports Sensation intact Psychiatric: Reports Affect appropriate Interpretation EKG Interpretation Time of EKG #1: 11:38 Rate: Normal Rhythm: Sinus Arminto: Left 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, 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 EKG Interpretation By: ED Physician Physician Notification Case Discussed Physician Notified: Jerry Time of Notification: 11:50 Critical Care Note Critical Care Note Total Critical Care Time (mins): 30 Course Course 08/05/22 05:21 08/05/22 05:21 Orders, Labs, Meds: Lab Review 08/04/22 08/04/22 08/04/22 11:34 12:10 12:16 WBC 12.47 H RBC 4.03 L Hgb 12.4 L Hct 40.0 L MCV 99.3 H MCH 30.8 MCHC 31.0 L RDW Coeff of Leonardo 14.9 H Plt Count 213 Immature Gran % (Auto) 0.2 Neut % (Auto) 84.8 H Lymph % (Auto) 6.5 L [place] % (Auto) 7.8 Eos % (Auto) 0.3 Baso % (Auto) 0.4 Neut # (Auto) 10.6 H Lymph # (Auto) 0.8 [place] # (Auto) 1.0 Eos # (Auto) 0.0 Baso # (Auto) 0.1 Immature Gran # (Auto) 0.0 Puncture Site [place] Excess 18.7 H O2 Saturation 94.5 ABG pH 7.52 H* ABG pCO2 51.0 H ABG pO2 65.0 L ABG HCO3 41.6 H ABG Total CO2 43.2 H Alfonzo Test Pos Hemoglobin 1.1 Oxyhemoglobin 93.0 L Carboxyhemoglobin 2.0 H Total Hemoglobin 13.2 O2 Delivery Device Cannula Oxygen Liter Flow 2.50 Sodium 136.8 Potassium 3.32 L Chloride 93.1 L Carbon Dioxide 39.3 H Anion Gap 7.72 BUN 17.6 Creatinine 0.89 Estimated GFR (MDRD) 81.00 BUN/Creatinine Ratio 19.77 Glucose 135.5 H Calcium 8.30 L Total Bilirubin 1.51 H AST 25.3 ALT 13.1 Alkaline Phosphatase 66.5 Troponin I < 0.012 NT-Pro-B Natriuret Pep 381 H Total Protein 7.06 Albumin 3.93 Globulin 3.13 Albumin/Globulin Ratio 1.25 Urine Color Yellow Urine Clarity Clear Urine pH 7.0 Ur Specific [place] 1.015 Urine Protein 1+ H Urine Glucose (UA) Negative Urine Ketones 1+ H Urine Blood Negative Urine Nitrite Negative Urine Bilirubin Negative Urine Urobilinogen 1.0 H Ur Leukocyte Esterase Negative Urine Microscopic RBC 0-2 Urine Microscopic WBC 0-2 Ur Squamous Epith Cells 2-5 Urine Bacteria Trace Urine Mucus Trace Orders Category Date Time Status EKG-(ED ONLY) Stat CARDIO 08/04/22 11:48 Completed NEBULIZER TREATMENT Stat CARDIO 08/04/22 11:33 Completed NPO REMINDER: IMAGING ONCE CARE 08/04/22 13:54 Completed NPO REMINDER: IMAGING ONCE CARE 08/04/22 14:04 Completed Monitor [ED RADIO TIME SALESPERSON APPLIED] .ONCE EMERGENCY 08/04/22 11:31 Active ABG COOX Stat LAB 08/04/22 12:10 Completed CBC W/ AUTO DIFF Stat LAB 08/04/22 11:34 Completed CMP [COMPREHENSIVE METABOLIC PANEL] Stat LAB 08/04/22 11:34 Completed NT-PROBNP(ED) Stat LAB 08/04/22 11:34 Completed TROPONIN I Stat LAB 08/04/22 11:34 Completed URINALYSIS C & S IF INDICATED Stat LAB 08/04/22 12:16 Completed Albuterol Sulfate 0.083% Neb [Albuterol 0.083% Neb] Meds 08/04/22 11:31 Discontinued 2.5 mg NEB ONCE STA Azithromycin Inj [Zithromax] 500 mg Meds 08/04/22 13:54 Discontinued 0.9 % Sodium Chloride [Sodium Chloride] 250 ml IV ONCE Furosemide [Lasix] Meds 08/04/22 11:31 Discontinued 40 mg IVP ONCE ONE Methylprednisolone Sod Succ/Pf [Solu-Medrol 125 mg] Meds 08/04/22 11:31 Discontinued 125 mg IVP ONCE ONE CTA CHEST PE PROTOCOL Stat RADS 08/04/22 14:04 Completed CXR [CHEST, 1V AP ONLY] Stat RADS 08/04/22 11:31 Completed Medications Generic Name Dose Route Start Last Admin Trade Name Freq PRN Reason Stop Dose Admin Acetaminophen 650 mg 08/04/22 14:23 Acetaminophen 325 Mg Tablet PO Q4H PRN Mild Pain Albuterol Sulfate 2.5 mg 08/04/22 14:23 Albuterol Sulfate 0.083% Vial.Neb NEB RTQ4H PRN Wheezing Albuterol/Ipratropium 3 ml 08/04/22 18:00 08/05/22 04:35 Ipratropium/Albuterol Vial.Neb NEB 3 ml RTQ4H PATRICIA Administration Allopurinol 200 mg 08/05/22 09:00 Allopurinol 100 Mg Tablet PO DAILY PATRICIA Bupropion HCl 75 mg 08/05/22 09:00 Bupropion Hcl 75 Mg Tablet PO DAILY PATRICIA Carvedilol 3.125 mg 08/05/22 08:30 Carvedilol 3.125 Mg Tablet PO DAILYWM PATRICIA Enoxaparin Sodium 97 mg 08/04/22 15:35 08/04/22 20:43 Enoxaparin Sodium 100 Mg/Ml Syr SUBCUT 97 mg Q12HR PATRICIA Administration Escitalopram Oxalate 20 mg 08/05/22 09:00 Escitalopram Oxalate 10 Mg Tablet PO DAILY PATRICIA Furosemide 40 mg 08/04/22 17:00 08/05/22 05:44 Furosemide Inj 40 Mg/4 Ml Vial IVP 40 mg BIDAC PATRICIA Administration Insulin Human Regular 0 unit 08/04/22 15:45 08/04/22 20:44 Insulin Regular, Human 100 Unit/Ml (3ml) Vial SUBCUT 6 unit PRN PRN Administration Hyperglycemia Protocol Levothyroxine Sodium 100 mcg 08/05/22 06:30 08/05/22 05:43 Levothyroxine Sodium 100 Mcg Tablet PO 100 mcg QDAC PATRICIA Administration Lorazepam 1 mg 08/04/22 21:00 08/04/22 20:43 Lorazepam 1 Mg Tablet PO 1 mg BEDTIME PATRICIA Administration Omeprazole 20 mg 08/05/22 06:30 08/05/22 05:44 Omeprazole 20 Mg Capsule.Dr PO 20 mg QDAC PATRICIA Administration Ondansetron HCl 4 mg 08/04/22 14:23 Ondansetron Hcl/Pf 4 Mg/2 Ml Sdv IVP Q6H PRN Nasal Congestion Pravastatin Sodium 40 mg 08/04/22 21:00 08/04/22 20:43 Pravastatin Sodium 40 Mg Tablet PO 40 mg BEDTIME PATRICIA Administration Prednisone 5 mg 08/05/22 08:30 Prednisone 5 Mg Tablet PO DAILYWM PATRICIA Spironolactone 25 mg 08/05/22 09:00 Spironolactone 25 Mg Tablet PO DAILY PATRICIA Tamsulosin HCl 0.4 mg 08/05/22 09:00 Tamsulosin Hcl 0.4 Mg Cap.Er.24h PO DAILY PATRICIA Discontinued Medications Generic Name Dose Route Start Last Admin Trade Name Freq PRN Reason Stop Dose Admin Albuterol Sulfate 2.5 mg 08/04/22 11:31 08/04/22 12:29 Albuterol Sulfate 0.083% Vial.Neb NEB 08/04/22 11:32 2.5 mg ONCE STA Administration Enoxaparin Sodium 30 mg 08/04/22 14:30 08/04/22 15:41 Enoxaparin Sodium 30 Mg/0.3 Ml Syr SUBCUT Not Given DAILY PATRICIA Furosemide 40 mg 08/04/22 11:31 08/04/22 12:01 Furosemide Inj 40 Mg/4 Ml Vial IVP 08/04/22 11:32 40 mg ONCE ONE Administration Azithromycin 500 mg/ Sodium 250 mls @ 125 mls/hr 08/04/22 13:54 08/04/22 14:47 Chloride IV 08/04/22 15:53 125 mls/hr ONCE ONE Administration Methylprednisolone Sodium Succinate 125 mg 08/04/22 11:31 08/04/22 12:01 Methylprednisolone Sod Succ/Pf 125 Mg/2 Ml Vial IVP 08/04/22 11:32 125 mg ONCE ONE Administration Vital Signs: Temp Pulse Resp BP Pulse Ox 08/04/22 10:56 97.7 F 95 16 108/71 90 L 87 yo male with hx of COPD and CHF coming for SOB. Patient has hx of COPD on 2L home O2, has been desaturating to 90. Patient had bilateral wheezes, he was given 40 mg lasix iv and 125 mg of solumedrol along with breating treatment/azithromycin. CT chest PE protocol showed PE. Case was discussed with Dr. jerry who ageed with admitting the patient to inpatient services for COPD/PE treatment. case was discussed with hospitalist Rigo Smith and she accepted the patient. IQRA Risk Score IQRA Risk Score: Risk Score Odds of by 30D 0 0.1 (0.1-0.2) 1 0.3 (0.2-0.3) 2 0.4 (0.3-0.5) 3 0.7 (0.6-0.9) 4 1.2 (1.0-1.5) 5 2.2 (1.9-2.6) 6 3.0 (2.5-3.6) 7 4.8 (3.8-6.1) Discharge Plan Discharge Patient Disposition: ADMITTED INPATIENT Discharge Problem: COPD with acute exacerbation Did you review [place] [employer] for ALL controlled substances?: Not Applicable ED Provider: BECCA EGAN Condition: Poor Physician Progress Note: []
[2022-08-04 12:27] LABS: BILIRUBIN,URINE Negative (NEGATIVE); CLARITY,URINE Clear (CLEAR); COLOR,URINE Yellow (YELLOW); GLUCOSE, URINE (UA) Negative (NEGATIVE); KETONES,URINE 1+ (NEGATIVE); LEUKOCYTE ESTERASE ,URINE Negative (NEGATIVE); NITRITE,URINE Negative (NEGATIVE); PROTEIN,URINE 1+ (NEGATIVE); URINE, BLOOD Negative (NEGATIVE)
[2022-08-04 12:58] LABS: MUCUS,URINE TRACE (NOT PRESENT); URINE RBC, MICROSCOPIC 0-2 (0-2); URINE WBC, MICROSCOPIC 0-2 (0-2)
[2022-08-04 12:59] LABS: BACTERIA,URINE TRACE (NOT PRESENT)
[2022-08-04] MEDS ORDERED: ZITHROMAX 500 MG in SODIUM CHLORIDE 250 ML IV ONE (13:54)
[2022-08-04] MEDS ORDERED: TYLENOL PO PRN (14:23)
[2022-08-04] MEDS ORDERED: ZOFRAN 4 MG/2 ML IVP PRN (14:23)
[2022-08-04] MEDS ORDERED: ALBUTEROL 0.083% NEB NEB PRN (14:23)
[2022-08-04] MEDS ORDERED: LOVENOX SUBCUT SCH (14:30)
[2022-08-04] MEDS ORDERED: ROCEPHIN 1 GM/50 ML D5W 1 GM/50 ML BAG IV SCH (14:30)
--- NOTE | 2022-08-04 15:14 | CT ---
EXAM: CT ANGIOGRAPHY CHEST (PE PROTOCOL) HISTORY: Shortness of breath, hypoxia TECHNIQUE: CTA chest with intravenous contrast. PE protocol. Multiplanar images were provided with MIP images and 3-D reconstructions. COMPARISON: 06/19/2022 FINDINGS: There is a moderate right proximal interlobar level pulmonary embolus. Tiny segmental pu lmonary embolus on the left. No signs of thrombus induced heart strain. There is moderate atheroscl erotic disease of the thoracic aorta. There is mild cardiomegaly. No pericardial effusion. There a re mild to moderate bibasilar consolidations suggesting atelectasis and pneumonia. There is a newly developed the 13 mm pneumatocele in the right upper lobe. Pleural-based along the mediastinal pleura at the level of the aortic arch in the left upper lobe there is a spiculated parenchymal opacity antelmo suring 11 x 18 x 14 mm, axial image 42 which is grossly stable since recent exam. The no visible ple ural fluid. No pneumothorax or vascular congestion. Bones reveal moderate degenerative changes of t he thoracic spine. Symmetric bilateral gynecomastia is incidentally noted. Stable hepatic cysts lar gest measuring to 3.7 cm. IMPRESSION: 1. There is a moderate right proximal interlobar level pulmonary embolus. Tiny segmental pulmonary embolus on the left. No signs of thrombus induced heart strain. 2. Moderate atherosclerotic disease. Mild cardiomegaly. 3. There are mild to moderate bibasilar consolidations suggesting atelectasis and pneumonia. 4. Pleural-based along the mediastinal pleura at the level of the aortic arch in the left upper lobe there is a spiculated parenchymal opacity measuring 11 x 18 x 14 mm, axial image 42 which is grossly stable since recent exam. Recommend follow-up CT to assure stability or resolution of this finding and to help exclude a neoplasm. I called the ordering physician Dr. Lau regarding these findings at 3:10 p.m. on 08/04/2022. - - - - - All CT scans are performed using dose optimization techniques as appropriate to the performed exam an d include at least one of the following: Automated exposure control, adjustment of the mA and/or kV according t o size, and the use of iterative reconstruction technique.
[2022-08-04 15:29] VITALS: BMI 29.0
--- NOTE | 2022-08-04 15:45 | PCM ---
Date of Service Date Seen by Provider: 08/04/22 Time Seen by Provider: 15:20 Admit Day/Time Admission Date: 08/04/22 Reason for Admission Chief Complaint: COPD EXACERBATION Hospital Provider Hospital Provider: JOHNNIE OREILLY, [place] [facility] [place] Primary Care Physician Primary Care Physician: MACKENZIE RAMIREZ MD History of Present Illness History of Present Illness: 87 yo male presented to the ER with complaints of shortness of breath and back pain. Patient has a pmh of congestive heart failure, COPD, and PE. Wears 2L of O2 at home at all times. States he began feeling more short of breath and had the back pain around 0500 this morning that woke him up. Family reported to ER staff that they had to turn his oxygen up at home to help him breathe. In ER, O2 sat was around 90% and PO2 on abg in the 60% range on 2L. Patient denies any fever, chills, chest pain, N/V/D, or other symptoms. Does report his normal weight is around 210 and weighs 214 today. Case Discussed With Case Discussed With: Patient's case was discussed with the ER Physicians, Dr. CONNOR Medical History (Updated 08/04/22 @ 15:42 by JOHNNIE OREILLY) B12 deficiency E53.8 - Deficiency of other specified B group vitamins (ICD-10) BPH (benign prostatic hyperplasia) N40.0 - BENIGN PROSTATIC HYPERPLASIA WITHOUT LOWER URINRY TRACT SYMP (ICD- 10) Cellulitis L03.90 - Cellulitis, unspecified (ICD-10) CHF (congestive heart failure) I50.9 - HEART FAILURE, UNSPECIFIED (ICD-10) CKD (chronic kidney disease) N18.9 - CHRONIC KIDNEY DISEASE, UNSPECIFIED (ICD-10) COPD (chronic obstructive pulmonary disease) J44.9 - CHRONIC OBSTRUCTIVE PULMONARY DISEASE, UNSPECIFIED (ICD-10) COR (chronic cor pulmonale) I27.81 - COR PULMONALE (CHRONIC) (ICD-10) Cor pulmonale I27.81 - Cor pulmonale (chronic) (ICD-10) Diabetes mellitus type 2 in obese E11.9 - TYPE 2 DIABETES MELLITUS WITHOUT COMPLICATIONS (ICD-10) Dyslipidemia E78.4 - OTHER HYPERLIPIDEMIA * DO NOT USE * (ICD-10) Essential (primary) hypertension I10 - ESSENTIAL (PRIMARY) HYPERTENSION (ICD-10) Hypothyroidism E03.9 - Hypothyroidism, unspecified (ICD-10) Mass of upper lobe of left lung R91.8 - Other nonspecific abnormal finding of lung field (ICD-10) Skin cancer C44.90 - UNSPECIFIED MALIGNANT NEOPLASM OF SKIN, UNSPECIFIED (ICD-10) Family History GRANDDAUGHTER No problems noted. FATHER Heart disease BROTHER Heart disease Other No known health problems Social History Smoking and tobacco status: Former smoker Quit status: has quit before Alcohol intake: former Substance use type: does not use Household members: none Housing: house Lives independently: Yes Number of children: 0 service: Yes Current occupational status: retired Pets and animals: Yes Current gender identity: male Seatbelt use: always Drives intoxicated or rides with intoxicated caterpillar driver: No Water heater temperature set < 120 degrees: Yes Working smoke detector in home: Yes Fire extinguisher in home: Yes Carbon monoxide detector in home: Yes Firearms in home: Yes Allergies Allergies Allergy/AdvReac Type Severity Reaction Status Date / Time No Known Allergies Allergy Verified 08/04/22 11:12 Current Medications Home Medications ipratropium 0.5 mg-albuterol 3 mg (2.5 mg base)/3 mL nebulization soln 3 ml inhalation QID 07/11/17 [History Confirmed 08/04/22 Last Taken 06/16/22] Spironolactone 25 mg PO DAILY #30 tabs 06/25/18 [Rx Confirmed 08/04/22 Last Taken 06/16/22] pravastatin 40 mg tablet 40 mg PO BEDTIME #90 tabs 07/01/18 [Rx Confirmed 08/04/22 Last Taken 06/16/22] Budesonide [Pulmicort 1 Mg/2 Ml] 1 vial NEB BEDTIME 10/29/18 [Rx Confirmed 08/04/22 Last Taken 02/07/22 21:00] levothyroxine 100 mcg tablet 100 mcg PO QDAC 11/08/19 [History Confirmed 08/04/22 Last Taken 06/16/22] metformin 500 mg tablet 500 mg PO DAILY 11/08/19 [History Confirmed 08/04/22 L ast Taken 06/16/22] prednisone 5 mg tablet 5 mg PO DAILYWM 05/06/21 [History Confirmed 08/04/22 Last Taken 06/16/22] furosemide 40 mg tablet 40 mg PO QDAC 05/14/21 [History Confirmed 08/04/22 Last Taken 06/16/22] escitalopram oxalate 20 mg tablet (Lexapro) 20 mg PO DAILY #30 tabs 05/23/21 [Rx Confirmed 08/04/22 Last Taken 06/16/22] lorazepam 1 mg tablet 1 mg PO BEDTIME 11/30/21 [History Confirmed 08/04/22 Last Taken 06/16/22] allopurinol 100 mg tablet See Rx Instructions .Route .COMPLEX #180 tabs 06/02/22 [Rx Confirmed 08/04/22 Last Taken 06/16/22] carvedilol 3.125 mg tablet See Rx Instructions .Route .COMPLEX #90 tabs 06/02/22 [Rx Confirmed 08/04/22 Last Taken 06/16/22] omeprazole 40 mg capsule,delayed release See Rx Instructions .Route .COMPLEX #90 caps 06/02/22 [Rx Confirmed 08/04/22 Last Taken 06/16/22] tamsulosin 0.4 mg capsule See Rx Instructions .Route .COMPLEX #90 caps 06/02/22 [Rx Confirmed 08/04/22 Last Taken 06/16/22] bupropion HCl 75 mg tablet See Rx Instructions .Route .COMPLEX #30 tabs 07/11/22 [Rx Confirmed 08/04/22 Last Taken Unknown] Home Acetaminophen (Acetaminophen 325 Mg Tablet) 650 mg PO Q4H PRN PRN Reason: Mild Pain Albuterol Sulfate (Albuterol Sulfate 0.083% Vial.Neb) 2.5 mg NEB RTQ4H PRN PRN Reason: Wheezing Albuterol/Ipratropium (Ipratropium/Albuterol Vial.Neb) 3 ml NEB RTQ4H PATRICIA Enoxaparin Sodium (Enoxaparin Sodium 100 Mg/Ml Syr) 97 mg SUBCUT Q12HR PATRICIA Furosemide (Furosemide Inj 40 Mg/4 Ml Vial) 40 mg IVP BIDAC PATRICIA Insulin Human Regular (Insulin Regular, Human 100 Unit/Ml (3ml) Vial) 0 unit SUBCUT PRN PRN; Protocol PRN Reason: Hyperglycemia Ondansetron HCl (Ondansetron Hcl/Pf 4 Mg/2 Ml Sdv) 4 mg IVP Q6H PRN PRN Reason: Nasal Congestion Discontinued Medications Albuterol Sulfate (Albuterol Sulfate 0.083% Vial.Neb) 2.5 mg NEB ONCE STA Stop: 08/04/22 11:32 Last Admin: 08/04/22 12:29 Dose: 2.5 mg Enoxaparin Sodium (Enoxaparin Sodium 30 Mg/0.3 Ml Syr) 30 mg SUBCUT DAILY PATRICIA Last Admin: 08/04/22 15:41 Dose: Not Given Furosemide (Furosemide Inj 40 Mg/4 Ml Vial) 40 mg IVP ONCE ONE Stop: 08/04/22 11:32 Last Admin: 08/04/22 12:01 Dose: 40 mg Azithromycin 500 mg/ Sodium (Chloride) 250 mls @ 125 mls/hr IV ONCE ONE Stop: 08/04/22 15:53 Last Admin: 08/04/22 14:47 Dose: 125 mls/hr Methylprednisolone Sodium Succinate (Methylprednisolone Sod Succ/Pf 125 Mg/2 Ml Vial) 125 mg IVP ONCE ONE Stop: 08/04/22 11:32 Last Admin: 08/04/22 12:01 Dose: 125 mg Review of Systems Constitutional: Reports Weakness Head: Reports Normocephalic and Atraumatic Eyes: Reports No symptoms Ears: Reports No symptoms Nose: Reports No symptoms Mouth: Reports No symptoms Throat: Reports No symptoms Cardiovascular: Reports No symptoms Respiratory: Reports Shortness of air Gastrointestinal: Reports No symptoms Genitourinary: Reports No Symptoms Musculoskeletal: Reports Back Pain Endocrine: Reports No symptoms Hematology: Reports No symptoms Immunology: Reports No symptoms Neurological: Reports No symptoms Psychiatric: Reports No symptoms Physical examination Most Recent Vital Signs: Most Recent Vital Signs Temperature 97.1 F L 08/04/22 15:14 Temperature Source Oral 08/04/22 15:14 Temperature Source Infrared 08/04/22 10:56 Pulse Rate 87 08/04/22 15:14 Respiratory Rate 24 H 08/04/22 15:14 Blood Pressure 108/71 08/04/22 10:56 Blood Pressure Left Arm 113/75 08/04/22 15:14 Blood Pressure Position Supine 08/04/22 15:14 O2 Sat by Pulse Oximetry 93 L 08/04/22 15:14 Oxygen Delivery Method Nasal Cannula 08/04/22 15:14 Oxygen Flow Rate 2.5 08/04/22 15:14 Height 6 ft 08/04/22 15:14 Weight 214 lb 1.102 oz 08/04/22 15:14 Telemetry Heart Rate 81 06/27/22 13:00 Telemetry SPO2 93 06/27/22 13:00 Appearance: Positive No Apparent Distress, Alert and Oriented x3, Ill-Appearing and Obese Skin: Positive Warm, Good Turgor and Good Color HEENT: Positive Normocephalic and Atraumatic Neck: Positive Supple and Midline Trachea Chest/Lungs: Positive Symmetrical With Equal Breath Sounds, Rhonci, Wheezes and Good Air Movement all 4 Lung Hoffmann Heart: Positive RRR and Pulses Normal GI/: Positive Soft, Nontender, Bowel Sounds Normal, No Distention and No Organomegaly Musculoskeletal: Positive Not Examined Extremities: Positive Edema (+ 4 Pitting edema BLE), Intact Peripheral Pulses (unable to assess pedal pulse due to severe edema) and Stable Joints Without Laxity Neurological: Positive Sensation Intact, Motor intact, Alert, Oriented and Muscle Strength 5/5 in Upper and Lower Extremities Bilaterally (4/5) Psychiatric: Positive Oriented x4, Appropriate Mood, Appropriate Affect, Intact Memory, Good Short-Term Recall, Good Long-Term Recall, Normal Judgement and Normal Insight Labs This Visit Labs This Visit: Labs This Visit 08/04/22 08/04/22 08/04/22 11:34 12:10 12:16 WBC 12.47 H RBC 4.03 L Hgb 12.4 L Hct 40.0 L MCV 99.3 H MCH 30.8 MCHC 31.0 L RDW Coeff of Leonardo 14.9 H Plt Count 213 Immature Gran % (Auto) 0.2 Neut % (Auto) 84.8 H Lymph % (Auto) 6.5 L [place] % (Auto) 7.8 Eos % (Auto) 0.3 Baso % (Auto) 0.4 Neut # (Auto) 10.6 H Lymph # (Auto) 0.8 [place]imer # (Auto) 1.0 Eos # (Auto) 0.0 Baso # (Auto) 0.1 Immature Gran # (Auto) 0.0 Puncture Site [employer] [employer] Excess 18.7 H O2 Saturation 94.5 ABG pH 7.52 H* ABG pCO2 51.0 H ABG pO2 65.0 L ABG HCO3 41.6 H ABG Total CO2 43.2 H Alfonzo Test Pos Hemoglobin 1.1 Oxyhemoglobin 93.0 L Carboxyhemoglobin 2.0 H Total Hemoglobin 13.2 O2 Delivery Device Cannula Oxygen Liter Flow 2.50 Sodium 136.8 Potassium 3.32 L Chloride 93.1 L Carbon Dioxide 39.3 H Anion Gap 7.72 BUN 17.6 Creatinine 0.89 Estimated GFR (MDRD) 81.00 BUN/Creatinine Ratio 19.77 Glucose 135.5 H Calcium 8.30 L Total Bilirubin 1.51 H AST 25.3 ALT 13.1 Alkaline Phosphatase 66.5 Troponin I < 0.012 NT-Pro-B Natriuret Pep 381 H Total Protein 7.06 Albumin 3.93 Globulin 3.13 Albumin/Globulin Ratio 1.25 Urine Color Yellow Urine Clarity Clear Urine pH 7.0 Ur Specific Sullivan 1.015 Urine Protein 1+ H Urine Glucose (UA) Negative Urine Ketones 1+ H Urine Blood Negative Urine Nitrite Negative Urine Bilirubin Negative Urine Urobilinogen 1.0 H Ur Leukocyte Esterase Negative Urine Microscopic RBC 0-2 Urine Microscopic WBC 0-2 Ur Squamous Epith Cells 2-5 Urine Bacteria Trace Urine Mucus Trace Imaging Imaging: EXAM: CHEST RADIOGRAPH TECHNIQUE: Single frontal chest radiograph. HISTORY: Shortness of breath. COMPARISON: 06/23/2022 FINDINGS: Chronic infiltrate and atelectasis noted in the left base. Right lung is clear. The heart is not enlarged and no pleural effusion. IMPRESSION: 1. Chronic left lower lobe infiltrate. EXAM: CT ANGIOGRAPHY CHEST (PE PROTOCOL) HISTORY: Shortness of breath, hypoxia TECHNIQUE: CTA chest with intravenous contrast. PE protocol. Multiplanar images were provided with MIP images and 3-D reconstructions. COMPARISON: 06/19/2022 FINDINGS: There is a moderate right proximal interlobar level pulmonary embolus. Tiny segmental pulmonary embolus on the left. No signs of thrombus induced heart strain. There is moderate atherosclerotic disease of the thoracic aorta. There is mild cardiomegaly. No pericardial effusion. There are mild to moderate bibasilar consolidations suggesting atelectasis and pneumonia. There is a newly developed the 13 mm pneumatocele in the right upper lobe. Pleural- based along the mediastinal pleura at the level of the aortic arch in the left upper lobe there is a spiculated parenchymal opacity measuring 11 x 18 x 14 mm, axial image 42 which is grossly stable since recent exam. The no visible pleural fluid. No pneumothorax or vascular congestion. Bones reveal moderate degenerative changes of the thoracic spine. Symmetric bilateral gynecomastia is incidentally noted. Stable hepatic cysts largest measuring to 3.7 cm. IMPRESSION: 1. There is a moderate right proximal interlobar level pulmonary embolus. Tiny segmental pulmonary embolus on the left. No signs of thrombus induced heart strain. 2. Moderate atherosclerotic disease. Mild cardiomegaly. 3. There are mild to moderate bibasilar consolidations suggesting atelectasis and pneumonia. 4. Pleural-based along the mediastinal pleura at the level of the aortic arch in the left upper lobe there is a spiculated parenchymal opacity measuring 11 x 18 x 14 mm, axial image 42 which is grossly stable since recent exam. Recommend follow-up CT to assure stability or resolution of this finding and to help exclude a neoplasm. Review Statement Review Statement: I have independently reviewed and interpreted the labs/EKGs/imaging that were ordered by the ER provider. I have reviewed all outside records that are available currently in our EMR including imaging/notes/labs from previous visits. Plan Plan: 1. Acute Hypoxic Respiratory Failure in setting of Pulmonary embolism - lovenox 1mg/kg dosing BID, will d/c home on eliquis, telemetry, RT following - nebs as prescribed 2. CHFpEF - last echo in 06/22 showed EF of 60%, 4+ pitting edema with SOB and weight gain, lasix 40 mg BID IVP, daily weight, I&O 3. COPD - chronic, treating for PE and fluid overload, nebs as prescribed 4. DM Type 2 - hold oral medications, diabetic diet, accuchecks qid with ssi 5. Hypertension - chronic, stable, continue home medications 6. CKD - appears at baseline, monitor bmp DVT Prophylaxis: Lovenox Time Spent: Greater than 80 minutes spent with patient, 50% of the time spent with this patient was devoted to counseling and coordination of care. [facility]in minutes spent discussing advance care planning. Smoking Cessation: 5 minutes spent discussing smoking cessation. Disposition: Admit to: Med/Surg Inpatient Discussed Plan of Care with Dr. Laura Ramirez Medications Medication Orders: Medications Ordered Category Date Time Status Acetaminophen [Tylenol] Meds 08/04/22 14:23 Active 650 mg PO Q4H PRN Albuterol Sulfate 0.083% Neb [Albuterol 0.083% Neb] Meds 08/04/22 14:23 Active 2.5 mg NEB RTQ4H PRN Azithromycin Inj [Zithromax] 500 mg Meds 08/05/22 09:00 Active 0.9 % Sodium Chloride [Sodium Chloride] 250 ml IV DAILY Azithromycin Inj [Zithromax] 500 mg Meds 08/04/22 13:54 Active 0.9 % Sodium Chloride [Sodium Chloride] 250 ml IV ONCE Ceftriaxone/D5w 1 gm Premix [Rocephin 1 gm/50 ml D5w] Meds 08/04/22 14:30 Active 1 gm in 50 ml IV DAILY Enoxaparin Sodium [Lovenox] Meds 08/04/22 15:35 Ordered 97 mg SUBCUT Q12HR Furosemide [Lasix] Meds 08/04/22 17:00 Ordered 40 mg IVP BIDAC Ipratropium/Albuterol Neb [Duoneb] Meds 08/04/22 18:00 Active 3 ml NEB RTQ4H Methylprednisolone Sod Succ/Pf [Solu-Medrol 125 mg] Meds 08/04/22 21:00 Active 40 mg IVP Q8HR Ondansetron HCl/Pf [Zofran 4 mg/2 ml] Meds 08/04/22 14:23 Active 4 mg IVP Q6H PRN
[2022-08-04] MEDS: LOVENOX SUBCUT SCH ×2 (16:27→20:43)
[2022-08-04] MEDS: DUONEB NEB SCH ×2 (17:21→21:06)
[2022-08-04] MEDS: PRAVACHOL PO SCH (20:43)
[2022-08-04] MEDS: LASIX IVP SCH (20:43)
[2022-08-04] MEDS: ATIVAN PO SCH (20:43)
[2022-08-04] MEDS: HUMULIN R SUBCUT PRN (20:44)
[2022-08-04] MEDS ORDERED: SOLU-MEDROL 125 MG IVP SCH (21:00)
[2022-08-05] MEDS: DUONEB NEB SCH ×4 (01:03→17:12)
[2022-08-05 05:39] LABS: BASOPHILS % (AUTO) 0.1 % (0.0-3.0); EOSINOPHILS % (AUTO) 0.1 % (0.0-7.0); HEMATOCRIT 38.5 % (42.0-52.0); HEMOGLOBIN 12.2 g/dl (14.0-18.0); IMMATURE GRANULOCYTE # (AUTO) 0.1 (0.0-1.0); IMMATURE GRANULOCYTE % (AUTO) 0.4 % (0.0-5.0); LYMPHOCYTES # (AUTO) 0.8 K/uL (0.60-3.4); LYMPHOCYTES % (AUTO) 5.9 (10.0-50.0); MEAN CORPUSCULAR HEMOGLOBIN 31.4 pg (27.0-31.0); MEAN CORPUSCULAR HGB CONC 31.7 (31.8-35.4); MEAN CORPUSCULAR VOLUME 99.2 fl (80.0-94.0); MONOCYTES # (AUTO) 0.9 K/uL (0.4-2.0); MONOCYTES % (AUTO) 6.1 (0-10); NEUTROPHILS # (AUTO) 12.2 K/ul (2.0-6.9); NEUTROPHILS % (AUTO) 87.4 % (42.2-75.2); PLATELET COUNT 204 10^3/uL (140-440); RED BLOOD COUNT 3.88 10^6/ul (4.70-6.10); WHITE BLOOD COUNT 13.96 K/ul (4.2-10.2)
[2022-08-05] MEDS: SYNTHROID PO SCH (05:43)
[2022-08-05] MEDS: PRILOSEC PO SCH (05:44)
[2022-08-05] MEDS: LASIX IVP SCH ×2 (05:44→16:57)
[2022-08-05 05:53] LABS: ALBUMIN 3.5 g/dL (3.5-5.0); ALKALINE PHOSPHATASE 56.6 U/L (56-119); ASPARTATE AMINO TRANSFERASE 23.2 U/L (17-59); BILIRUBIN,TOTAL 0.94 mg/dL (0.2-1.3); BLOOD UREA NITROGEN 20.8 mg/dL (9-20); CALCIUM 7.98 mg/dL (8.4-10.2); CHLORIDE 90.5 mmol/L (98-107); CREATININE 0.87 mg/dL (0.60-1.10); GLUCOSE 167.2 mg/dL (74-106); POTASSIUM 3.09 mmol/L (3.5-5.1); SODIUM 135.4 mmol/L (134.5-145); TOTAL PROTEIN 6.51 g/dL (6.3-8.2)
[2022-08-05 06:04] LABS: CARBON DIOXIDE 39.9 mmol/L (22-30.0)
[2022-08-05] MEDS: HUMULIN R SUBCUT PRN ×3 (07:17→16:57)
[2022-08-05] MEDS ORDERED: K-DUR PO ONE (08:05)
[2022-08-05] MEDS: ZYLOPRIM PO SCH (08:49)
[2022-08-05] MEDS: FLOMAX PO SCH (08:49)
[2022-08-05] MEDS: PREDNISONE PO SCH (08:49)
[2022-08-05] MEDS: LEXAPRO PO SCH (08:49)
[2022-08-05] MEDS: WELLBUTRIN PO SCH (08:49)
[2022-08-05] MEDS: ALDACTONE PO SCH (08:49)
[2022-08-05] MEDS: COREG PO SCH (08:49)
[2022-08-05] MEDS: LOVENOX SUBCUT SCH ×2 (08:50→20:23)
[2022-08-05] MEDS ORDERED: ZITHROMAX 500 MG in SODIUM CHLORIDE 250 ML IV SCH (09:00)
--- NOTE | 2022-08-05 11:20 | PCM.PROG ---
Date/Time Seen Date Seen by Provider: 08/05/22 Provider Provider: JOHNNIE OREILLY, [facility] Chief Complaint Chief Complaint: PULMONARY EMBOLISM Subjective Subjective: feeling better today. States breathing is better. Getting up with walker. Denies any pain. No fevers overnight. Objective Appearance: Positive Alert and Oriented x3, Ill-Appearing and Obese Chest/Lungs: Positive Symmetrical With Equal Breath Sounds, Wheezes and Good Air Movement all 4 Lung Hoffmann Heart: Positive RRR and Pulses Normal GI/: Positive Soft, Nontender, Bowel Sounds Normal, No Distention and No Organomegaly Musculoskeletal: Positive Other (Edema improved, +2-3 pitting) Neurological: Positive Sensation Intact, Motor intact, Alert, Oriented and Muscle Strength 5/5 in Upper and Lower Extremities Bilaterally (4/5) Vital Signs Vital Signs: Vital Signs: Last 24 Hours 08/04/22 15:14 08/04/22 15:36 08/04/22 15:14 Temperature 97.1 F L Temperature Source Oral Pulse Rate 87 Pulse Rate [Apical] 73 Respiratory Rate 24 H 24 H Blood Pressure Blood Pressure Mean Blood Pressure Left Arm 113/75 Blood Pressure Location Blood Pressure Position Supine O2 Sat by Pulse Oximetry 93 L Oxygen Delivery Method Nasal Cannula Nasal Cannula Oxygen Flow Rate 2.5 2.5 Height 6 ft Weight 214 lb 1.102 oz Telemetry Type Remote Telemetry Telemetry Monitoring Discontinued Telemetry Heart Rate 89 EKG NM Interval 0.17 EKG QRS Interval 0.08 Telemetry Strip Reading NSR 08/04/22 15:55 08/04/22 18:57 08/04/22 22:00 Temperature 97.8 F Temperature Source Temporal Artery Scan Pulse Rate 90 Pulse Rate [Apical] Respiratory Rate 18 Blood Pressure 101/60 Blood Pressure Mean 73 Blood Pressure Left Arm Blood Pressure Location Right Arm Blood Pressure Position Sitting O2 Sat by Pulse Oximetry 92 L Oxygen Delivery Method Nasal Cannula Nasal Cannula Nasal Cannula Oxygen Flow Rate 2.5 2 2 Height Weight Telemetry Type Telemetry Monitoring Telemetry Heart Rate EKG NM Interval EKG QRS Interval Telemetry Strip Reading 08/04/22 19:00 08/04/22 20:00 08/05/22 06:00 Temperature 96.7 F L Temperature Source Temporal Artery Scan Pulse Rate 82 Pulse Rate [Apical] 80 Respiratory Rate 20 20 Blood Pressure 102/67 Blood Pressure Mean 78 Blood Pressure Left Arm Blood Pressure Location Left Arm Blood Pressure Position Sitting O2 Sat by Pulse Oximetry 92 L Oxygen Delivery Method Nasal Cannula Nasal Cannula Oxygen Flow Rate 2.5 2 Height Weight Telemetry Type Remote Telemetry Telemetry Monitoring Continues Telemetry Heart Rate EKG NM Interval 0.20 EKG QRS Interval 0.06 Telemetry Strip Reading SR with PAC's 08/05/22 06:00 08/05/22 01:00 08/05/22 05:16 Temperature Temperature Source Pulse Rate Pulse Rate [Apical] Respiratory Rate Blood Pressure Blood Pressure Mean Blood Pressure Left Arm Blood Pressure Location Blood Pressure Position O2 Sat by Pulse Oximetry 95 Oxygen Delivery Method Nasal Cannula Oxygen Flow Rate 2 Height Weight 208 lb 6.4 oz Telemetry Type Remote Telemetry Telemetry Monitoring Continues Telemetry Heart Rate EKG NM Interval 0.20 EKG QRS Interval 0.08 Telemetry Strip Reading SR 08/05/22 07:00 08/05/22 09:29 08/05/22 09:34 Temperature Temperature Source Pulse Rate Pulse Rate [Apical] Respiratory Rate Blood Pressure Blood Pressure Mean Blood Pressure Left Arm Blood Pressure Location Blood Pressure Position O2 Sat by Pulse Oximetry 95 Oxygen Delivery Method Nasal Cannula Oxygen Flow Rate 2 Height 6 ft Weight 208 lb 6 oz Telemetry Type Remote Telemetry Telemetry Monitoring Continues Telemetry Heart Rate 79 EKG NM Interval 0.17 EKG QRS Interval 0.05 L Telemetry Strip Reading SR Lab Results Lab Results: Lab Results: Last 24 Hours 08/05/22 08/04/22 08/04/22 05:21 12:16 12:10 WBC 13.96 H RBC 3.88 L Hgb 12.2 L Hct 38.5 L MCV 99.2 H MCH 31.4 H MCHC 31.7 L RDW Coeff of Leonardo 15.0 H Plt Count 204 Immature Gran % (Auto) 0.4 Neut % (Auto) 87.4 H Lymph % (Auto) 5.9 L [place] % (Auto) 6.1 Eos % (Auto) 0.1 Baso % (Auto) 0.1 Neut # (Auto) 12.2 H Lymph # (Auto) 0.8 [place] # (Auto) 0.9 Eos # (Auto) 0.0 Baso # (Auto) 0.0 Immature Gran # (Auto) 0.1 Puncture Site [place] Excess 18.7 H O2 Saturation 94.5 ABG pH 7.52 H* ABG pCO2 51.0 H ABG pO2 65.0 L ABG HCO3 41.6 H ABG Total CO2 43.2 H Alfonzo Test Pos Hemoglobin 1.1 Oxyhemoglobin 93.0 L Carboxyhemoglobin 2.0 H Total Hemoglobin 13.2 O2 Delivery Device Cannula Oxygen Liter Flow 2.50 Sodium 135.4 Potassium 3.09 L Chloride 90.5 L Carbon Dioxide 39.9 H Anion Gap 8.09 BUN 20.8 H Creatinine 0.87 Estimated GFR (MDRD) 83.00 BUN/Creatinine Ratio 23.90 Glucose 167.2 H Calcium 7.98 L Total Bilirubin 0.94 AST 23.2 ALT 13.0 Alkaline Phosphatase 56.6 Troponin I NT-Pro-B Natriuret Pep Total Protein 6.51 Albumin 3.50 Globulin 3.01 Albumin/Globulin Ratio 1.16 Urine Color Yellow Urine Clarity Clear Urine pH 7.0 Ur Specific [place] 1.015 Urine Protein 1+ H Urine Glucose (UA) Negative Urine Ketones 1+ H Urine Blood Negative Urine Nitrite Negative Urine Bilirubin Negative Urine Urobilinogen 1.0 H Ur Leukocyte Esterase Negative Urine Microscopic RBC 0-2 Urine Microscopic WBC 0-2 Ur Squamous Epith Cells 2-5 Urine Bacteria Trace Urine Mucus Trace 08/04/22 11:34 WBC 12.47 H RBC 4.03 L Hgb 12.4 L Hct 40.0 L MCV 99.3 H MCH 30.8 MCHC 31.0 L RDW Coeff of Leonardo 14.9 H Plt Count 213 Immature Gran % (Auto) 0.2 Neut % (Auto) 84.8 H Lymph % (Auto) 6.5 L [place] % (Auto) 7.8 Eos % (Auto) 0.3 Baso % (Auto) 0.4 Neut # (Auto) 10.6 H Lymph # (Auto) 0.8 [place] # (Auto) 1.0 Eos # (Auto) 0.0 Baso # (Auto) 0.1 Immature Gran # (Auto) 0.0 Puncture Site Base Excess O2 Saturation ABG pH ABG pCO2 ABG pO2 ABG HCO3 ABG Total CO2 Alfonzo Test Hemoglobin Oxyhemoglobin Carboxyhemoglobin Total Hemoglobin O2 Delivery Device Oxygen Liter Flow Sodium 136.8 Potassium 3.32 L Chloride 93.1 L Carbon Dioxide 39.3 H Anion Gap 7.72 BUN 17.6 Creatinine 0.89 Estimated GFR (MDRD) 81.00 BUN/Creatinine Ratio 19.77 Glucose 135.5 H Calcium 8.30 L Total Bilirubin 1.51 H AST 25.3 ALT 13.1 Alkaline Phosphatase 66.5 Troponin I < 0.012 NT-Pro-B Natriuret Pep 381 H Total Protein 7.06 Albumin 3.93 Globulin 3.13 Albumin/Globulin Ratio 1.25 Urine Color Urine Clarity Urine pH Ur Specific [place] Urine Protein Urine Glucose (UA) Urine Ketones Urine Blood Urine Nitrite Urine Bilirubin Urine Urobilinogen Ur Leukocyte Esterase Urine Microscopic RBC Urine Microscopic WBC Ur Squamous Epith Cells Urine Bacteria Urine Mucus Additional Comments Additional Comments: I have independently reviewed and interpreted the labs/EKGs/imaging ordered during this hospital stay. I have reviewed outside records that are available in our EMR that pertain to medical stay including imaging/notes/labs from previous visits. Active Medications Active Medications: Medications Generic Name Dose Route Start Last Admin Trade Name Freq PRN Reason Stop Dose Admin Acetaminophen 650 mg 08/04/22 14:23 Acetaminophen 325 Mg Tablet PO Q4H PRN Mild Pain Albuterol Sulfate 2.5 mg 08/04/22 14:23 Albuterol Sulfate 0.083% Vial.Neb NEB RTQ4H PRN Wheezing Albuterol/Ipratropium 3 ml 08/04/22 18:00 08/05/22 04:35 Ipratropium/Albuterol Vial.Neb NEB 3 ml RTQ4H PATRICIA Administration Allopurinol 200 mg 08/05/22 09:00 08/05/22 08:49 Allopurinol 100 Mg Tablet PO 200 mg DAILY PATRICIA Administration Bupropion HCl 75 mg 08/05/22 09:00 08/05/22 08:49 Bupropion Hcl 75 Mg Tablet PO 75 mg DAILY PATRICIA Administration Carvedilol 3.125 mg 08/05/22 08:30 08/05/22 08:49 Carvedilol 3.125 Mg Tablet PO 3.125 mg DAILYWM PATRICIA Administration Enoxaparin Sodium 97 mg 08/04/22 15:35 08/05/22 08:50 Enoxaparin Sodium 100 Mg/Ml Syr SUBCUT 97 mg Q12HR PATRICIA Administration Escitalopram Oxalate 20 mg 08/05/22 09:00 08/05/22 08:49 Escitalopram Oxalate 10 Mg Tablet PO 20 mg DAILY PATRICIA Administration Furosemide 40 mg 08/04/22 17:00 08/05/22 05:44 Furosemide Inj 40 Mg/4 Ml Vial IVP 40 mg BIDAC PATRICIA Administration Insulin Human Regular 0 unit 08/04/22 15:45 08/05/22 07:17 Insulin Regular, Human 100 Unit/Ml (3ml) Vial SUBCUT 3 unit PRN PRN Administration Hyperglycemia Protocol Levothyroxine Sodium 100 mcg 08/05/22 06:30 08/05/22 05:43 Levothyroxine Sodium 100 Mcg Tablet PO 100 mcg QDAC PATRICIA Administration Lorazepam 1 mg 08/04/22 21:00 08/04/22 20:43 Lorazepam 1 Mg Tablet PO 1 mg BEDTIME PATRICIA Administration Omeprazole 20 mg 08/05/22 06:30 08/05/22 05:44 Omeprazole 20 Mg Capsule. PO 20 mg QDAC PATRICIA Administration Ondansetron HCl 4 mg 08/04/22 14:23 Ondansetron Hcl/Pf 4 Mg/2 Ml Sdv IVP Q6H PRN Nasal Congestion Pravastatin Sodium 40 mg 08/04/22 21:00 08/04/22 20:43 Pravastatin Sodium 40 Mg Tablet PO 40 mg BEDTIME PATRICIA Administration Prednisone 5 mg 08/05/22 08:30 08/05/22 08:49 Prednisone 5 Mg Tablet PO 5 mg DAILYWM PATRICIA Administration Spironolactone 25 mg 08/05/22 09:00 08/05/22 08:49 Spironolactone 25 Mg Tablet PO 25 mg DAILY PATRICIA Administration Tamsulosin HCl 0.4 mg 08/05/22 09:00 08/05/22 08:49 Tamsulosin Hcl 0.4 Mg Cap.Er.24h PO 0.4 mg DAILY PATRICIA Administration Plan Plan: 1. Acute Hypoxic Respiratory Failure in setting of Pulmonary embolism - improving, not requiring additional O2 at this time, lovenox 1mg/kg dosing BID, will d/c home on eliquis, telemetry, RT following - nebs as prescribed 2. 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 COPD - chronic, treating for PE and fluid overload, nebs as prescribed 4. DM Type 2 - hold oral medications, diabetic diet, accuchecks qid with ssi 5. Hypertension - chronic, stable, continue home medications 6. CKD - appears at baseline, monitor bmp 7. Generalized weakness - would benefit from home health to help with ADLs, has had in past, needs resumption of care upon discharge Plan to D/C home in am Review Statement Review Statement: I have personally discussed and reviewed the patient's visit/currently l abs/imaging/decision making with Dr. Ramirez, my supervising attending. Greater that 50 minutes spent with patient, 50% of the time spent with this patient was devoted to counseling and coordination of care.
[2022-08-05] MEDS: PRAVACHOL PO SCH (20:23)
[2022-08-05] MEDS: ATIVAN PO SCH (20:23)
[2022-08-06] MEDS: DUONEB NEB SCH ×2 (04:35→17:13)
[2022-08-06 05:01] LABS: BASOPHILS % (AUTO) 0.3 % (0.0-3.0); EOSINOPHILS % (AUTO) 0.2 % (0.0-7.0); HEMATOCRIT 37.5 % (42.0-52.0); HEMOGLOBIN 11.8 g/dl (14.0-18.0); IMMATURE GRANULOCYTE # (AUTO) 0.1 (0.0-1.0); IMMATURE GRANULOCYTE % (AUTO) 0.5 % (0.0-5.0); LYMPHOCYTES # (AUTO) 1.3 K/uL (0.60-3.4); LYMPHOCYTES % (AUTO) 10.8 (10.0-50.0); MEAN CORPUSCULAR HEMOGLOBIN 31.1 pg (27.0-31.0); MEAN CORPUSCULAR HGB CONC 31.5 (31.8-35.4); MEAN CORPUSCULAR VOLUME 98.9 fl (80.0-94.0); MONOCYTES # (AUTO) 1.1 K/uL (0.4-2.0); MONOCYTES % (AUTO) 9.2 (0-10); NEUTROPHILS # (AUTO) 9.6 K/ul (2.0-6.9); PLATELET COUNT 188 10^3/uL (140-440); RDW COEFFICIENT OF VARIATION 14.8 % (11.6-14.8); RED BLOOD COUNT 3.79 10^6/ul (4.70-6.10); WHITE BLOOD COUNT 12.21 K/ul (4.2-10.2)
[2022-08-06 05:21] LABS: ALBUMIN 3.33 g/dL (3.5-5.0); ALKALINE PHOSPHATASE 53.7 U/L (56-119); ASPARTATE AMINO TRANSFERASE 27.6 U/L (17-59); BILIRUBIN,TOTAL 0.88 mg/dL (0.2-1.3); BLOOD UREA NITROGEN 23.9 mg/dL (9-20); CALCIUM 7.99 mg/dL (8.4-10.2); CARBON DIOXIDE 39.7 mmol/L (22-30.0); CHLORIDE 92.1 mmol/L (98-107); CREATININE 0.99 mg/dL (0.60-1.10); GLUCOSE 103.3 mg/dL (74-106); POTASSIUM 3.22 mmol/L (3.5-5.1); SODIUM 134.7 mmol/L (134.5-145); TOTAL PROTEIN 6.26 g/dL (6.3-8.2)
[2022-08-06] MEDS: LASIX IVP SCH ×2 (05:44→16:48)
[2022-08-06] MEDS: PRILOSEC PO SCH (05:54)
[2022-08-06] MEDS: SYNTHROID PO SCH (05:54)
[2022-08-06] MEDS: ZYLOPRIM PO SCH (08:27)
[2022-08-06] MEDS: ALDACTONE PO SCH (08:27)
[2022-08-06] MEDS: PREDNISONE PO SCH (08:27)
[2022-08-06] MEDS: LEXAPRO PO SCH (08:27)
[2022-08-06] MEDS: WELLBUTRIN PO SCH (08:27)
[2022-08-06] MEDS: COREG PO SCH (08:27)
[2022-08-06] MEDS: FLOMAX PO SCH (08:27)
[2022-08-06] MEDS: LOVENOX SUBCUT SCH (08:28)
[2022-08-06] MEDS ORDERED: K-DUR PO ONE (08:44)
--- NOTE | 2022-08-06 09:22 | PCM.PROG ---
Date/Time Seen Date Seen by Provider: 08/06/22 Time Seen by Provider: 08:30 Provider Provider: Mary[facility] Barajas [facility] Chief Complaint Chief Complaint: PULMONARY EMBOLISM Subjective Subjective: Patient states he's not feeling well today. His breathing feels worse today. He is on baseline O2. He lives at home alone. Has home health and some family that checks on him. Objective Appearance: Positive Well-appearing, Well-nourished, No Apparent Distress and Alert and Oriented x3 Chest/Lungs: Positive Symmetrical With Equal Breath Sounds and Clear to Auscultation Bilaterally; Negative Rales, Rhonci or Wheezes Heart: Positive RRR and Other (+2 pitting edema bilateral lower ext. ) GI/: Positive Soft, Nontender and Bowel Sounds Normal Neurological: Positive Cranial Nerves Intact, Alert, Oriented and Other (+generalized weakness ) Vital Signs Vital Signs: Vital Signs: Last 24 Hours 08/05/22 14:00 08/05/22 09:29 08/05/22 09:34 Temperature 97.6 F Temperature Source Temporal Artery Scan Pulse Rate 74 Pulse Rate [Apical] Respiratory Rate 20 Blood Pressure 86/53 L Blood Pressure Mean 64 Blood Pressure Location Left Arm Blood Pressure Position O2 Sat by Pulse Oximetry 96 95 Oxygen Delivery Method Nasal Cannula Nasal Cannula Oxygen Flow Rate 2 2 Height 6 ft Weight 208 lb 6 oz Telemetry Type Telemetry Monitoring Telemetry Heart Rate EKG OK Interval EKG QRS Interval Telemetry Strip Reading 08/05/22 12:55 08/05/22 14:00 08/05/22 19:00 Temperature Temperature Source Pulse Rate Pulse Rate [Apical] Respiratory Rate Blood Pressure Blood Pressure Mean Blood Pressure Location Blood Pressure Position O2 Sat by Pulse Oximetry 92 L Oxygen Delivery Method Nasal Cannula Oxygen Flow Rate 2 Height Weight Telemetry Type Remote Telemetry Remote Telemetry Telemetry Monitoring Continues Continues Telemetry Heart Rate 77 86 EKG OK Interval 0.18 0.17 EKG QRS Interval 0.05 L 0.07 Telemetry Strip Reading SR SR 08/05/22 20:00 08/05/22 21:33 08/06/22 01:00 Temperature 96.6 F L Temperature Source Temporal Artery Scan Pulse Rate 82 Pulse Rate [Apical] 85 Respiratory Rate 20 Blood Pressure 103/60 Blood Pressure Mean 74 Blood Pressure Location Left Arm Blood Pressure Position Sitting O2 Sat by Pulse Oximetry 94 L Oxygen Delivery Method Nasal Cannula Nasal Cannula Oxygen Flow Rate 2.5 2 Height Weight Telemetry Type Remote Telemetry Telemetry Monitoring Continues Telemetry Heart Rate 87 EKG OK Interval 0.18 EKG QRS Interval 0.09 Telemetry Strip Reading SR 08/05/22 20:00 08/06/22 04:53 08/06/22 05:25 Temperature 96.6 F L Temperature Source Temporal Artery Scan Pulse Rate 82 Pulse Rate [Apical] Respiratory Rate 20 Blood Pressure 85/56 L Blood Pressure Mean 65 Blood Pressure Location Left Arm Blood Pressure Position Supine O2 Sat by Pulse Oximetry 93 L 93 L 93 L Oxygen Delivery Method Nasal Cannula Nasal Cannula Nasal Cannula Oxygen Flow Rate 2 2 2 Height Weight Telemetry Type Telemetry Monitoring Telemetry Heart Rate EKG OK Interval EKG QRS Interval Telemetry Strip Reading 08/06/22 05:28 08/06/22 06:17 08/06/22 07:00 Temperature Temperature Source Pulse Rate Pulse Rate [Apical] Respiratory Rate Blood Pressure 118/81 Blood Pressure Mean 93 Blood Pressure Location Left Arm Blood Pressure Position Supine O2 Sat by Pulse Oximetry Oxygen Delivery Method Nasal Cannula Oxygen Flow Rate Height Weight 208 lb 9.6 oz Telemetry Type Remote Telemetry Telemetry Monitoring Continues Telemetry Heart Rate 91 EKG OK Interval EKG QRS Interval 0.12 H Telemetry Strip Reading Atrial Fib versus WAP with PACs frequent 08/06/22 09:02 Temperature Temperature Source Pulse Rate Pulse Rate [Apical] Respiratory Rate Blood Pressure Blood Pressure Mean Blood Pressure Location Blood Pressure Position O2 Sat by Pulse Oximetry 92 L Oxygen Delivery Method Nasal Cannula Oxygen Flow Rate 2 Height Weight Telemetry Type Telemetry Monitoring Telemetry Heart Rate EKG OK Interval EKG QRS Interval Telemetry Strip Reading Lab Results Lab Results: Lab Results: Last 24 Hours 08/06/22 04:56 WBC 12.21 H RBC 3.79 L Hgb 11.8 L Hct 37.5 L MCV 98.9 H MCH 31.1 H MCHC 31.5 L RDW Coeff of Leonardo 14.8 Plt Count 188 Immature Gran % (Auto) 0.5 Neut % (Auto) 79.0 H Lymph % (Auto) 10.8 [place] % (Auto) 9.2 Eos % (Auto) 0.2 Baso % (Auto) 0.3 Neut # (Auto) 9.6 H Lymph # (Auto) 1.3 [place] # (Auto) 1.1 Eos # (Auto) 0.0 Baso # (Auto) 0.0 Immature Gran # (Auto) 0.1 Sodium 134.7 Potassium 3.22 L Chloride 92.1 L Carbon Dioxide 39.7 H Anion Gap 6.12 BUN 23.9 H Creatinine 0.99 Estimated GFR (MDRD) 72.00 BUN/Creatinine Ratio 24.14 Glucose 103.3 D Calcium 7.99 L Total Bilirubin 0.88 AST 27.6 ALT 16.0 Alkaline Phosphatase 53.7 L Total Protein 6.26 L Albumin 3.33 L Globulin 2.93 Albumin/Globulin Ratio 1.13 Additional Comments Additional Comments: I have independently reviewed and interpreted the labs/EKGs/imaging ordered during this hospital stay. I have reviewed outside records that are available in our EMR that pertain to medical stay including imaging/notes/labs from previous visits. Active Medications Active Medications: Medications Generic Name Dose Route Start Last Admin Trade Name Freq PRN Reason Stop Dose Admin Acetaminophen 650 mg 08/04/22 14:23 Acetaminophen 325 Mg Tablet PO Q4H PRN Mild Pain Albuterol Sulfate 2.5 mg 08/04/22 14:23 Albuterol Sulfate 0.083% Vial.Neb NEB RTQ4H PRN Wheezing Albuterol/Ipratropium 3 ml 08/05/22 18:00 08/06/22 04:35 Ipratropium/Albuterol Vial.[facility] NEB 3 ml RTBID PATRICIA Administration Allopurinol 200 mg 08/05/22 09:00 08/06/22 08:27 Allopurinol 100 Mg Tablet PO 200 mg DAILY PATRICIA Administration Bupropion HCl 75 mg 08/05/22 09:00 08/06/22 08:27 Bupropion Hcl 75 Mg Tablet PO 75 mg DAILY PATRICIA Administration Carvedilol 3.125 mg 08/05/22 08:30 08/06/22 08:27 Carvedilol 3.125 Mg Tablet PO 3.125 mg DAILYWM PATRICIA Administration Enoxaparin Sodium 97 mg 08/04/22 15:35 08/06/22 08:28 Enoxaparin Sodium 100 Mg/Ml Syr SUBCUT 97 mg Q12HR PATRICIA Administration Escitalopram Oxalate 20 mg 08/05/22 09:00 08/06/22 08:27 Escitalopram Oxalate 10 Mg Tablet PO 20 mg DAILY PATRICIA Administration Furosemide 40 mg 08/04/22 17:00 08/06/22 05:44 Furosemide Inj 40 Mg/4 Ml Vial IVP 40 mg BIDAC PATRICIA Administration Insulin Human Regular 0 unit 08/04/22 15:45 08/05/22 16:57 Insulin Regular, Human 100 Unit/Ml (3ml) Vial SUBCUT 3 unit PRN PRN Administration Hyperglycemia Protocol Levothyroxine Sodium 100 mcg 08/05/22 06:30 08/06/22 05:54 Levothyroxine Sodium 100 Mcg Tablet PO 100 mcg QDAC PATRICIA Administration Lorazepam 1 mg 08/04/22 21:00 08/05/22 20:23 Lorazepam 1 Mg Tablet PO 1 mg BEDTIME PATRICIA Administration Omeprazole 20 mg 08/05/22 06:30 08/06/22 05:54 Omeprazole 20 Mg Capsule.Dr PO 20 mg QDAC PATRICIA Administration Ondansetron HCl 4 mg 08/04/22 14:23 Ondansetron Hcl/Pf 4 Mg/2 Ml Sdv IVP Q6H PRN Nasal Congestion Pravastatin Sodium 40 mg 08/04/22 21:00 08/05/22 20:23 Pravastatin Sodium 40 Mg Tablet PO 40 mg BEDTIME PATRICIA Administration Prednisone 5 mg 08/05/22 08:30 08/06/22 08:27 Prednisone 5 Mg Tablet PO 5 mg DAILYWM PATRICIA Administration Sodium Chloride 1 syr 08/05/22 21:00 08/06/22 05:54 0.9% Sodium Chloride 10 Ml Disp.Syrin IVF 1 syr Q8HR PATRICIA Administration Spironolactone 25 mg 08/05/22 09:00 08/06/22 08:27 Spironolactone 25 Mg Tablet PO 25 mg DAILY PATRICIA Administration Tamsulosin HCl 0.4 mg 08/05/22 09:00 08/06/22 08:27 Tamsulosin Hcl 0.4 Mg Cap.Er.24h PO 0.4 mg DAILY PATRICIA Administration Plan Plan: 1. Acute Hypoxic Respiratory Failure in setting of Pulmonary embolism - improving, not requiring additional O2 at this time, lovenox 1mg/kg dosing BID, will transition to eliquis today, telemetry, RT following - nebs as prescribed 2. CHFpEF - last echo in 06/22 showed EF of 60%, Edema improving, sob worse today, continue lasix 40 mg BID IVP, daily weight, I&O 3. COPD - chronic, treating for PE and fluid overload, nebs as prescribed 4. DM Type 2 - hold oral medications, diabetic diet, accuchecks qid with ssi 5. Hypertension - chronic, stable, continue home medications 6. CKD - appears at baseline, monitor bmp 7. Generalized weakness - would benefit from home health to help with ADLs, has had in past, needs resumption of care upon discharge DVT: Lovenox, transitioning to eliquis Plan to D/C home in am Review Statement Review Statement: I have personally discussed and reviewed the patient's visit/currently labs/imaging/decision making with Dr. Ramirez, my supervising attending. Greater that 50 minutes spent with patient, 50% of the time spent with this patient was devoted to counseling and coordination of care.
[2022-08-06] MEDS: ATIVAN PO SCH (20:11)
[2022-08-06] MEDS: ELIQUIS PO SCH (20:12)
[2022-08-06] MEDS: HUMULIN R SUBCUT PRN (20:13)
[2022-08-06] MEDS: PRAVACHOL PO SCH (20:14)
[2022-08-07] MEDS: DUONEB NEB SCH (04:40)
[2022-08-07 05:10] LABS: BASOPHILS % (AUTO) 0.4 % (0.0-3.0); EOSINOPHILS # (AUTO) 0.1 K/ul (0.0-0.7); EOSINOPHILS % (AUTO) 1.6 % (0.0-7.0); HEMATOCRIT 40.1 % (42.0-52.0); HEMOGLOBIN 12.6 g/dl (14.0-18.0); IMMATURE GRANULOCYTE % (AUTO) 0.3 % (0.0-5.0); LYMPHOCYTES # (AUTO) 1.3 K/uL (0.60-3.4); LYMPHOCYTES % (AUTO) 14.9 (10.0-50.0); MEAN CORPUSCULAR HGB CONC 31.4 (31.8-35.4); MEAN CORPUSCULAR VOLUME 98.8 fl (80.0-94.0); MONOCYTES # (AUTO) 0.9 K/uL (0.4-2.0); MONOCYTES % (AUTO) 9.8 (0-10); NEUTROPHILS # (AUTO) 6.5 K/ul (2.0-6.9); PLATELET COUNT 206 10^3/uL (140-440); RDW COEFFICIENT OF VARIATION 14.9 % (11.6-14.8); RED BLOOD COUNT 4.06 10^6/ul (4.70-6.10); WHITE BLOOD COUNT 8.91 K/ul (4.2-10.2)
[2022-08-07 05:20] LABS: ALANINE AMINOTRANSFERASE 17.3 U/L (0-50); ALBUMIN 3.62 g/dL (3.5-5.0); ALKALINE PHOSPHATASE 57.7 U/L (56-119); ASPARTATE AMINO TRANSFERASE 29.4 U/L (17-59); BILIRUBIN,TOTAL 0.96 mg/dL (0.2-1.3); BLOOD UREA NITROGEN 23.5 mg/dL (9-20); CALCIUM 8.14 mg/dL (8.4-10.2); CHLORIDE 92.5 mmol/L (98-107); CREATININE 0.95 mg/dL (0.60-1.10); GLUCOSE 97.8 mg/dL (74-106); POTASSIUM 3.37 mmol/L (3.5-5.1); SODIUM 136.2 mmol/L (134.5-145); TOTAL PROTEIN 6.7 g/dL (6.3-8.2)
[2022-08-07 05:31] LABS: CARBON DIOXIDE 41.7 mmol/L (22-30.0)
[2022-08-07] MEDS: LASIX IVP SCH (05:54)
[2022-08-07] MEDS: PRILOSEC PO SCH (06:04)
[2022-08-07] MEDS: SYNTHROID PO SCH (06:04)
[2022-08-07] MEDS ORDERED: K-DUR PO ONE (08:06)
[2022-08-07] MEDS: COREG PO SCH (09:46)
[2022-08-07] MEDS: ALDACTONE PO SCH (09:46)
[2022-08-07] MEDS: WELLBUTRIN PO SCH (09:48)
[2022-08-07] MEDS: LEXAPRO PO SCH (09:48)
[2022-08-07] MEDS: ZYLOPRIM PO SCH (09:49)
[2022-08-07] MEDS: PREDNISONE PO SCH (09:49)
[2022-08-07] MEDS: ELIQUIS PO SCH (09:50)
[2022-08-07] MEDS: FLOMAX PO SCH (09:50)
--- NOTE | 2022-08-07 10:51 | DCSUM ---
Admission Date Admission Date: 08/04/22 Discharge Date Discharge Date: 08/07/22 Admission Diagnosis Admission Diagnosis: 1. Acute hypoxic respiratory failure in setting of PE Discharge Diagnosis Discharge Diagnosis: 1. Acute Hypoxic Respiratory Failure in setting of Pulmonary embolism - resolved 2. Pulmonary embolism - right proximal PE and tiny left segmental PE 3. CHFpEF 4. COPD 5. DM Type 2 6. Hypertension 7. CKD 8. Generalized weakness 9. Left upper lung opactiy, stable - follow outpatient Hospital Provider Hospital Provider: Derick Dominique [facility]-C, [facility] Primary Care Physician Primary Care Physician: MACKENZIE FUENTES MD Summary of History and Physical Summary of History and Physical: 87 yo male presented to the ER with complaints of shortness of breath and back pain. Patient has a pmh of congestive heart failure, COPD, and PE. Wears 2L of O2 at home at all times. States he began feeling more short of breath and had the back pain around 0500 this morning that woke him up. Family reported to ER staff that they had to turn his oxygen up at home to help him breathe. In ER, O2 sat was around 90% and PO2 on abg in the 60% range on 2L. Patient denies any fever, chills, chest pain, N/V/D, or other symptoms. Does report his normal weight is around 210 and weighs 214 today. Hospital Course Subjective: CTA noted a moderate right proximal PE and tiny segmental PE on the left. He was started on Lovenox treatment dose. He was transitioned to Eliquis. He was able to be weaned to his home O2 oxygen requirement of 2 L. He was diuresed with Lasix to help with his lower extremity swelling. This is improved upon discharge. Patient was given a voucher coupon and samples of Eliquis upon discharge. He refused therapy while hospitalized. He will follow-up with PCP. He has good amount of help at home. We will also resume home health upon discharge. Of note he was noted to have a left upper lobe opacity measuring 11 x 18 x [address] This appears stable from last imaging. Continue to follow outpatient. Patient agreeable to plan of care. Appearance: Pleasant, No Apparent Distress, Alert and Other (WEARING BASELINE O2 REQUIREMENT, 2L. ) HEENT: MMM CVS: No Murmur Abdomen: Soft, Non-Tender and No Distention Respiratory: No Dyspnea Extremities: Other (1-2+ PITTING EDEMA, IMPROVED FROM ADMISSION ) Vital Signs: Most Recent Vital Signs Temperature 97.9 F 08/07/22 05:32 Temperature Source Temporal Artery Scan 08/07/22 05:32 Temperature Source Infrared 08/04/22 10:56 Pulse Rate 72 08/07/22 05:32 Respiratory Rate 16 08/07/22 05:32 Blood Pressure 103/64 08/07/22 05:32 Blood Pressure Mean 77 08/07/22 05:32 Blood Pressure Left Arm 113/75 08/04/22 15:14 Blood Pressure Location Right Arm 08/07/22 05:32 Blood Pressure Position Supine 08/07/22 05:32 O2 Sat by Pulse Oximetry 92 L 08/07/22 10:00 Oxygen Delivery Method Nasal Cannula 08/07/22 10:00 Oxygen Flow Rate 2 08/07/22 10:00 Height 6 ft 08/05/22 09:29 Weight 203 lb 7.787 oz 08/07/22 05:32 Telemetry Type Remote Telemetry 08/07/22 07:00 Telemetry Monitoring Continues 08/07/22 07:00 Irregular Telemetry Rate (Approximate) 90-100 BPM 08/07/22 07:00 Telemetry Heart Rate 91 08/07/22 01:00 Telemetry SPO2 93 06/27/22 13:00 EKG VT Interval 0.13 08/07/22 07:00 EKG QRS Interval 0.12 H 08/07/22 07:00 EKG QT Interval 0.40 08/07/22 01:00 Telemetry Strip Reading Sinus Arrhythmia, BBB with PACs 08/07/22 07:00 Imaging: EXAM: CHEST RADIOGRAPH TECHNIQUE: Single frontal chest radiograph. HISTORY: Shortness of breath. COMPARISON: 06/23/2022 FINDINGS: Chronic infiltrate and atelectasis noted in the left base. Right lung is clear. The heart is not enlarged and no pleural effusion. IMPRESSION: 1. Chronic left lower lobe infiltrate. EXAM: CT ANGIOGRAPHY CHEST (PE PROTOCOL) HISTORY: Shortness of breath, hypoxia TECHNIQUE: CTA chest with intravenous contrast. PE protocol. Multiplanar images were provided with MIP images and 3-D reconstructions. COMPARISON: 06/19/2022 FINDINGS: There is a moderate right proximal interlobar level pulmonary embolus. Tiny segmental pulmonary embolus on the left. No signs of thrombus induced heart strain. There is moderate atherosclerotic disease of the thoracic aorta. There is mild cardiomegaly. No pericardial effusion. There are mild to moderate bibasilar consolidations suggesting atelectasis and pneumonia. There is a newly developed the 13 mm pneumatocele in the right upper lobe. Pleural- based along the mediastinal pleura at the level of the aortic arch in the left upper lobe there is a spiculated parenchymal opacity measuring 11 x 18 x 14 mm, axial image 42 which is grossly stable since recent exam. The no visible pleu ral fluid. No pneumothorax or vascular congestion. Bones reveal moderate degenerative changes of the thoracic spine. Symmetric bilateral gynecomastia is incidentally noted. Stable hepatic cysts largest measuring to 3.7 cm. IMPRESSION: 1. There is a moderate right proximal interlobar level pulmonary embolus. Tiny segmental pulmonary embolus on the left. No signs of thrombus induced heart st rain. 2. Moderate atherosclerotic disease. Mild cardiomegaly. 3. There are mild to moderate bibasilar consolidations suggesting atelectasis and pneumonia. 4. Pleural-based along the mediastinal pleura at the level of the aortic arch in the left upper lobe there is a spiculated parenchymal opacity measuring 11 x 18 x 14 mm, axial image 42 which is grossly stable since recent exam. Recommend follow-up CT to assure stability or resolution of this finding and to help exclude a neoplasm. I called the ordering physician Dr. Lau regarding these findings at 3:10 p.m. on 08/04/2022. - - - - - Lab Results Last 24 Hours: 08/07/22 04:58 WBC 8.91 RBC 4.06 L Hgb 12.6 L Hct 40.1 L MCV 98.8 H MCH 31.0 MCHC 31.4 L RDW Coeff of Leonardo 14.9 H Plt Count 206 Immature Gran % (Auto) 0.3 Neut % (Auto) 73.0 Lymph % (Auto) 14.9 Douglas % (Auto) 9.8 Eos % (Auto) 1.6 Baso % (Auto) 0.4 Neut # (Auto) 6.5 Lymph # (Auto) 1.3 Douglas # (Auto) 0.9 Eos # (Auto) 0.1 Baso # (Auto) 0.0 Immature Gran # (Auto) 0.0 Sodium 136.2 Potassium 3.37 L Chloride 92.5 L Carbon Dioxide 41.7 H* Anion Gap 5.37 BUN 23.5 H Creatinine 0.95 Estimated GFR (MDRD) 75.00 BUN/Creatinine Ratio 24.73 Glucose 97.8 Calcium 8.14 L Total Bilirubin 0.96 AST 29.4 ALT 17.3 Alkaline Phosphatase 57.7 Total Protein 6.70 Albumin 3.62 Globulin 3.08 Albumin/Globulin Ratio 1.17 Discharge Instructions Discharge Planning: DISCHARGE TO HOME ACTIVITY: TOLERATED DIET: HEART HEALTHY, LOW SODIUM DX: PULMONARY EMBOLISM NEW MEDICATIONS: ELIQUIS (BLOOD THINNER) RETURN TO ER WITH ANY SIGNS OF BLEEDING YOU HAVE A FOLLOW UP APPOINTMENT WITH DR FUENTES'S OFFICE ON July AT 1:20PM. SHOULD YOU HAVE ANY QUESTIONS OR NEED TO RESCHEDULE YOU CAN CONTACT THEIR OFFICE AT [phone]. Discharge Planning > [address] Magaly FUENTES. Discharge Medications: Medications at Discharge (Home Meds & RX) ipratropium 0.5 mg-albuterol 3 mg (2.5 mg base)/3 mL nebulization soln 3 ml inhalation QID 07/11/17 Spironolactone 25 mg PO DAILY #30 tabs 06/25/18 pravastatin 40 mg tablet 40 mg PO BEDTIME #90 tabs 07/01/18 Budesonide [Pulmicort 1 Mg/2 Ml] 1 vial NEB BEDTIME 10/29/18 levothyroxine 100 mcg tablet 100 mcg PO QDAC 11/08/19 metformin 500 mg tablet 500 mg PO DAILY 11/08/19 prednisone 5 mg tablet 5 mg PO DAILYWM 05/06/21 furosemide 40 mg tablet 40 mg PO QDAC 05/14/21 escitalopram oxalate 20 mg tablet (Lexapro) 20 mg PO DAILY #30 tabs 05/23/21 lorazepam 1 mg tablet 1 mg PO BEDTIME 11/30/21 allopurinol 100 mg tablet See Rx Instructions .Route .COMPLEX #180 tabs 06/02/22 carvedilol 3.125 mg tablet See Rx Instructions .Route .COMPLEX #90 tabs 06/02/22 omeprazole 40 mg capsule,delayed release See Rx Instructions .Route .COMPLEX #90 caps 06/02/22 tamsulosin 0.4 mg capsule See Rx Instructions .Route .COMPLEX #90 caps 06/02/22 bupropion HCl 75 mg tablet See Rx Instructions .Route .COMPLEX #30 tabs 07/11/22 Discharge Plan Discharge Discharge Orders: Discharge Patient (ONCE); Ordered 08/07/22 Ordered By: DERICK DOMINIQUE Activity Restrictions/Additional Instructions: DISCHARGE TO HOME ACTIVITY: TOLERATED DIET: HEART HEALTHY, LOW SODIUM DX: PULMONARY EMBOLISM NEW MEDICATIONS: ELIQUIS (BLOOD THINNER) RETURN TO ER WITH ANY SIGNS OF BLEEDING YOU HAVE A FOLLOW UP APPOINTMENT WITH DR FUENTES'S OFFICE ON July AT 1:20PM. SHOULD YOU HAVE ANY QUESTIONS OR NEED TO RESCHEDULE YOU CAN CONTACT THEIR OFFICE AT [phone]. Patient Disposition: HOME SELF-CARE Prescriptions: New Eliquis 5 mg tablet 10 mg PO BID 6 Days Qty: 48 0RF Rx Instructions: TAKE 10 MG BID X7 DAYS, THEN 5 MG BID. Continued tamsulosin 0.4 mg capsule See Rx Instructions .ROUTE .COMPLEX Qty: 90 1RF Dose Instruction: TAKE ONE (1) CAPSULE BY MOUTH DAILY Rx Instructions: TAKE ONE (1) CAPSULE BY MOUTH DAILY carvedilol 3.125 mg tablet See Rx Instructions .ROUTE .COMPLEX Qty: 90 1RF Dose Instruction: take ONE (1) tablet by mouth every morning Rx Instructions: take ONE (1) tablet by mouth every morning allopurinol 100 mg tablet See Rx Instructions .ROUTE .COMPLEX Qty: 180 1RF Dose Instruction: take 2 tablets by mouth daily Rx Instructions: take 2 tablets by mouth daily omeprazole 40 mg capsule,delayed release(/EC) See Rx Instructions .ROUTE .COMPLEX Qty: 90 1RF Dose Instruction: TAKE ONE (1) CAPSULE BY MOUTH DAILY Rx Instructions: TAKE ONE (1) CAPSULE BY MOUTH DAILY bupropion HCl 75 mg tablet See Rx Instructions .ROUTE .COMPLEX Qty: 30 0RF Dose Instruction: TAKE ONE (1) TABLET BY MOUTH DAILY Rx Instructions: TAKE ONE (1) TABLET BY MOUTH DAILY ipratropium-albuterol 3 ML solution for nebulization 3 ml inhalation QID Spironolactone 25 MG tablet 25 mg PO DAILY Qty: 30 0RF Budesonide [Pulmicort 1 Mg/2 Ml] 1 VIAL Vial.Neb 1 vial NEB BEDTIME 0RF Rx Instructions: TAKE ONE VIAL PER NEBULIZER EVERY NIGHT AT BEDTIME furosemide 40 mg Tablet 40 mg PO QDAC escitalopram oxalate [Lexapro] 20 mg Tablet 20 mg PO DAILY Qty: 30 0RF pravastatin 40 MG tablet 40 mg PO BEDTIME Qty: 90 0RF levothyroxine 100 MCG tablet 100 mcg PO QDAC metformin 500 mg Tablet 500 mg PO DAILY prednisone 5 mg tablet 5 mg PO DAILYWM lorazepam 1 mg tablet 1 mg PO BEDTIME Did you review [place] FLIGHT PHYSICIAN for ALL controlled substances?: Not Applicable Discussed opioids are addictive and Narcan is available by prescription or from pharmacy.: No Condition: Fair
[2022-08-07 14:38] VITALS: BP 133/67; RESP 23; TEMP 96.4
== END 2022-08-07 16:40 | disposition home or self-care (01) | DRG 175 ==
LOC: ED 10:52 → INTOOBSV 14:10 → MEDSURG B 14:10
PROVIDERS: ADMIT Hospitalist; ATTEND Physician Assistant
DX: Z79.899 Other long term (current) drug therapy; Z79.84 Long term (current) use of oral hypoglycemic drugs; I70.90 Unspecified atherosclerosis; R53.1 Weakness; I50.9 Heart failure, unspecified; Z51.81 Encounter for therapeutic drug level monitoring; C44.90 Unspecified malignant neoplasm of skin, unspecified; J44.9 Chronic obstructive pulmonary disease, unspecified; I13.0 Hypertensive heart and chronic kidney disease with heart failure and stage 1 through stage 4 chronic kidney disease, or unspecified chronic kidney disease; E11.22 Type 2 diabetes mellitus with diabetic chronic kidney disease; R91.8 Other nonspecific abnormal finding of lung field; E53.8 Deficiency of other specified B group vitamins; Z99.81 Dependence on supplemental oxygen; E03.9 Hypothyroidism, unspecified; N40.0 Benign prostatic hyperplasia without lower urinary tract symptoms; R60.9 Edema, unspecified; L03.90 Cellulitis, unspecified; Z87.891 Personal history of nicotine dependence; I26.99 Other pulmonary embolism without acute cor pulmonale; N18.9 Chronic kidney disease, unspecified; J44.1 Chronic obstructive pulmonary disease with (acute) exacerbation; J96.01 Acute respiratory failure with hypoxia

== ENCOUNTER 2022-08-26 10:03 | Observation (INO) ==
[2022-08-26 10:21] LABS: BASOPHILS # (AUTO) 0.1 K/uL (0-0.2); BASOPHILS % (AUTO) 0.4 % (0.0-3.0); EOSINOPHILS # (AUTO) 0.1 K/ul (0.0-0.7); EOSINOPHILS % (AUTO) 0.8 % (0.0-7.0); HEMATOCRIT 42.3 % (42.0-52.0); HEMOGLOBIN 13.3 g/dl (14.0-18.0); IMMATURE GRANULOCYTE % (AUTO) 0.3 % (0.0-5.0); LYMPHOCYTES # (AUTO) 1.3 K/uL (0.60-3.4); LYMPHOCYTES % (AUTO) 11.3 (10.0-50.0); MEAN CORPUSCULAR HEMOGLOBIN 31.4 pg (27.0-31.0); MEAN CORPUSCULAR HGB CONC 31.4 (31.8-35.4); MEAN CORPUSCULAR VOLUME 99.8 fl (80.0-94.0); MONOCYTES # (AUTO) 0.6 K/uL (0.4-2.0); MONOCYTES % (AUTO) 5.3 (0-10); NEUTROPHILS # (AUTO) 9.4 K/ul (2.0-6.9); NEUTROPHILS % (AUTO) 81.9 % (42.2-75.2); PLATELET COUNT 298 10^3/uL (140-440); RDW COEFFICIENT OF VARIATION 14.6 % (11.6-14.8); RED BLOOD COUNT 4.24 10^6/ul (4.70-6.10); WHITE BLOOD COUNT 11.46 K/ul (4.2-10.2)
[2022-08-26 10:26] LABS: ABG O2 HGB 95.2 % (95-100); ABG PH 7.45 (7.35-7.45); BEecf 15.6 (-2.0-3.0); HCO3 39.6 (21-28); MetHb 0.8 (0-1.5); TCO2 41.3 (19-24); sO2 96.3 % (94-98); tHb 12.9 g/dl (11.7-17.4)
--- NOTE | 2022-08-26 10:26 | ED.PDOC ---
General ED Provider: Dr. GABRIELLE MERLOS Chief Complaint: Chest Pain Stated Complaint: Patient is an 87 year old male who has a history of PE Diagnosed two weeks ago and has been on Eliquis which he has been getting as prescribed. He is cared for by his grand daughter at home. Time Seen by Provider: 08/26/22 10:08 Information Source: Patient Primary Care Provider: MACKENZIE FUENTES MD Nursing and Triage Documentation Reviewed and Agree: Yes Does patient meet sepsis criteria?: No System Inflammatory Response Syndrome: Not Applicable Sepsis Protocol: For patient's 13 years and over: Temp is 96.8 and below OR 101 and greater Pulse >90 BPM Resp >20/minute Acutely Altered Mental Status Are patient's symptoms suggestive of a new infection, such as: -Pneumonia -Skin, Soft Tissue -Endocarditis -UTI -Bone, Joint Infection -Implantable Device -Acute Abdominal Infection -Wound Infection -Meningitis -Blood Stream Catheter Infection -Unknown Review of Systems Review Of Systems Constitutional: Reports No symptoms Eyes: Reports No symptoms Respiratory: Reports Shortness of Breath Cardiac: Reports Chest pain GI: Reports No symptoms : Reports No symptoms Musculoskeletal: Reports Joint swelling Skin: Reports No symptoms Neurological: Reports Anxiety Endocrine: Reports No symptoms All Other Systems: Reviewed and Negative FORMERLY [facility], [facility]–1983 Medical History Acute exacerbation of chronic bronchitis J20.9 - Acute bronchitis, unspecified (ICD-10) J42 - Unspecified chronic bronchitis (ICD-10) Acute hypokalemia E87.6 - Hypokalemia (ICD-10) Acute pneumonitis J18.9 - PNEUMONIA, UNSPECIFIED ORGANISM (ICD-10) B12 deficiency E53.8 - Deficiency of other specified B group vitamins (ICD-10) BPH (benign prostatic hyperplasia) N40.0 - BENIGN PROSTATIC HYPERPLASIA WITHOUT LOWER URINRY TRACT SYMP (ICD- 10) CAP (community acquired pneumonia) J18.9 - Pneumonia, unspecified organism (ICD-10) Cellulitis L03.90 - Cellulitis, unspecified (ICD-10) CHF (congestive heart failure) I50.9 - HEART FAILURE, UNSPECIFIED (ICD-10) CKD (chronic kidney disease) N18.9 - CHRONIC KIDNEY DISEASE, UNSPECIFIED (ICD-10) COPD (chronic obstructive pulmonary disease) J44.9 - CHRONIC OBSTRUCTIVE PULMONARY DISEASE, UNSPECIFIED (ICD-10) COR (chronic cor pulmonale) I27.81 - COR PULMONALE (CHRONIC) (ICD-10) Diabetes mellitus type 2 in obese E11.9 - TYPE 2 DIABETES MELLITUS WITHOUT COMPLICATIONS (ICD-10) Dyslipidemia E78.4 - OTHER HYPERLIPIDEMIA * DO NOT USE * (ICD-10) Essential (primary) hypertension I10 - ESSENTIAL (PRIMARY) HYPERTENSION (ICD-10) Hypothyroidism E03.9 - Hypothyroidism, unspecified (ICD-10) Pneumonia J18.9 - Pneumonia, unspecified organism (ICD-10) Pneumonitis J18.9 - Pneumonia, unspecified organism (ICD-10) Skin cancer C44.90 - UNSPECIFIED MALIGNANT NEOPLASM OF SKIN, UNSPECIFIED (ICD-10) Family History GRANDDAUGHTER No problems noted. FATHER Heart disease BROTHER Heart disease Other No known health problems Social History Smoking and tobacco status: Former smoker Quit status: has quit before Alcohol intake: former Substance use type: does not use Household members: none Housing: house Lives independently: Yes Number of children: 0 service: Yes Current occupational status: retired Pets and animals: Yes Current gender identity: male Seatbelt use: always Drives intoxicated or rides with intoxicated haul driver: No Water heater temperature set < 120 degrees: Yes Working smoke detector in home: Yes Fire extinguisher in home: Yes Carbon monoxide detector in home: Yes Firearms in home: Yes Physical Exam Physical Exam Appearance: Reports Ill-appearing Ill-appearing: Moderate Pain Distress: Moderate Eyes: Reports NATHAN, EOMI and Conjunctiva clear ENT: Reports Nose normal Neck: Supple Respiratory: Reports Airway patent and Breath sounds clear Cardiovascular: Reports RRR, Pulses normal and No rub GI/: Reports Soft and Nontender Musculoskeletal: Reports Edema Skin: Reports Warm and Dry Neurological: Reports Sensation intact Psychiatric: Reports Anxious Interpretation EKG Interpretation EKG Interpretation By: ED Physician Time of EKG #1: 10:01 Rate: Normal Rhythm: Sinus Ectopy: PVCs (occasional ) [place]: Left ST Segment: Normal Interpretation: Incomplester RBBB, old anterior infarct age undetermined Radiology Interpretation Radiology Interpretation By: Radiologist Radiology Results: No acute changes Exam Interpreted: Portable CXR (No acute cardiopulmonary process with left basilar ground-glass suggestive of airway thickening. This is consistent with prior CT.) Re-Evaluation Re-Evaluation Time of Re-Evaluation: 13:17 Status: Improved Vital Signs Stable: Yes Pain Level: Resoved chest pain Appearance: NAD Lungs: Other (wheezing improving ) Physician Notification Case Discussed Physician Notified: Dr Fuentes. Time of Notification: 13:00 (Admit to hospitalist since will be out of town, ) Physician Notified: Jaimie Time of Notification: 13:05 (accepted admission to observation) Critical Care Note Critical Care Note Total Critical Care Time (mins): 3 Course Course 08/26/22 10:15 08/26/22 10:15 Orders, Labs, Meds: Lab Review 08/26/22 08/26/22 08/26/22 10:12 10:15 10:29 WBC 11.46 H RBC 4.24 L Hgb 13.3 L Hct 42.3 MCV 99.8 H MCH 31.4 H MCHC 31.4 L RDW Coeff of Leonardo 14.6 Plt Count 298 Immature Gran % (Auto) 0.3 Neut % (Auto) 81.9 H Lymph % (Auto) 11.3 Hayes % (Auto) 5.3 Eos % (Auto) 0.8 Baso % (Auto) 0.4 Neut # (Auto) 9.4 H Lymph # (Auto) 1.3 Hayes # (Auto) 0.6 Eos # (Auto) 0.1 Baso # (Auto) 0.1 Immature Gran # (Auto) 0.0 Puncture Site [employer] Excess 15.6 H O2 Saturation 96.3 ABG pH 7.45 ABG pCO2 57.0 H ABG pO2 80.0 L ABG HCO3 39.6 H ABG Total CO2 41.3 H Alfonzo Test Pos Hemoglobin 0.8 Oxyhemoglobin 95.2 Carboxyhemoglobin 2.0 H Total Hemoglobin 12.9 O2 Delivery Device Cannula Oxygen Liter Flow 2.00 Sodium 140.1 Potassium 3.88 Chloride 94.1 L Carbon Dioxide 42.2 H* Anion Gap 7.68 BUN 20.5 H Creatinine 0.92 Estimated GFR (MDRD) 78.00 BUN/Creatinine Ratio 22.28 Glucose 151.0 H Lactic Acid 1.09 Calcium 9.15 Total Bilirubin 0.89 AST 24.1 ALT 18.5 Alkaline Phosphatase 77.3 Total Creatine Kinase 22.2 L Troponin I < 0.012 Total Protein 8.03 Albumin 4.29 Globulin 3.74 Albumin/Globulin Ratio 1.14 Procalcitonin < 0.05 Orders Category Date Time Status ADMIT OBSERVATION [PLACE PATIENT OBSERVATION] .TO ADMISSION 08/26/22 13:06 Active MEDSURG (MONITORED BED) ABG DRAW REQUEST Stat CARDIO 08/26/22 10:10 Completed EKG-(ED ONLY) Stat CARDIO 08/26/22 10:10 Completed NEBULIZER TREATMENT Stat CARDIO 08/26/22 10:28 Completed NEBULIZER TREATMENT Stat CARDIO 08/26/22 13:04 Completed TELEMETRY MONITORING TELE CARE 08/26/22 13:06 Active ED APPLY O2 .ONCE EMERGENCY 08/26/22 10:10 Active ED JOB COACHING APPLIED .ONCE EMERGENCY 08/26/22 10:10 Active ED IV/MEDIPORT/POWERPORT .ONCE EMERGENCY 08/26/22 10:10 Active ABG COOX Stat LAB 08/26/22 10:12 Completed BLOOD CULTURE (ED ONLY) Stat LAB 08/26/22 10:29 Received CBC W/ AUTO DIFF Stat LAB 08/26/22 10:15 Completed COMPREHENSIVE METABOLIC PANEL Stat LAB 08/26/22 10:15 Completed CREATINE KINASE Stat LAB 08/26/22 10:15 Completed LACTIC ACID Stat LAB 08/26/22 10:29 Completed PROCALCITONIN Stat LAB 08/26/22 10:15 Completed TROPONIN I Stat LAB 08/26/22 10:15 Completed TROPONIN I Stat LAB 08/26/22 13:24 Completed 0.9 % Sodium Chloride [Saline Flush] Meds 08/26/22 10:10 Active 1 syr IVF PRN PRN Ipratropium/Albuterol Neb [Duoneb] Meds 08/26/22 10:28 Discontinued 3 ml NEB ONCE STA Ipratropium/Albuterol Neb [Duoneb] Meds 08/26/22 13:04 Discontinued 3 ml NEB ONCE STA Methylprednisolone Sod Succ/Pf [Solu-Medrol 125 mg] Meds 08/26/22 10:28 Discontinued 125 mg IVP ONCE STA Morphine Sulfate [Morphine 2 mg/ml Syringe] Meds 08/26/22 10:27 Discontinued 2 mg IVP ONCE ONE Ondansetron HCl/Pf [Zofran 4 mg/2 ml] Meds 08/26/22 10:27 Discontinued 4 mg IVP ONCE STA CHEST, 1V AP ONLY Stat RADS 08/26/22 10:10 Completed Medications Generic Name Dose Route Start Last Admin Trade Name Freq PRN Reason Stop Dose Admin Albuterol/Ipratropium 3 ml 08/26/22 20:00 Ipratropium/Albuterol Vial.Neb NEB RTQID [facility] Allopurinol 200 mg 08/27/22 09:00 Allopurinol 100 Mg Tablet PO DAILY [facility] Apixaban 5 mg 08/26/22 21:00 Apixaban 5 Mg Tab PO BID PATRICIA Azithromycin 500 mg 08/26/22 14:30 08/26/22 15:52 Azithromycin 250 Mg Tablet PO 08/29/22 14:29 500 mg DAILY PATRICIA Administration Bupropion HCl 75 mg 08/27/22 09:00 Bupropion Hcl 75 Mg Tablet PO DAILY [facility] Carvedilol 3.125 mg 08/27/22 09:00 Carvedilol 3.125 Mg Tablet PO DAILY [facility] Escitalopram Oxalate 20 mg 08/27/22 09:00 Escitalopram Oxalate 10 Mg Tablet PO DAILY [facility] Furosemide 40 mg 08/27/22 06:30 Furosemide 40 Mg Tablet PO QDAC [facility] Levothyroxine Sodium 100 mcg 08/27/22 06:30 Levothyroxine Sodium 100 Mcg Tablet PO QDAC [facility] Lorazepam 1 mg 08/26/22 21:00 Lorazepam 1 Mg Tablet PO BEDTIME [facility] Methylprednisolone Sodium Succinate 40 mg 08/26/22 21:00 Methylprednisolone Sod Succ/Pf 125 Mg/2 Ml Vial IVP Q8HR [facility] Omeprazole 40 mg 08/27/22 06:30 Omeprazole 20 Mg Capsule. PO QDAC [facility] Pravastatin Sodium 40 mg 08/26/22 21:00 Pravastatin Sodium 40 Mg Tablet PO BEDTIME PATRICIA Sodium Chloride 1 syr 08/26/22 10:10 08/26/22 10:45 0.9% Sodium Chloride 10 Ml Disp.Syrin IVF 1 syr PRN PRN Administration To flush IV Sodium Chloride 1 syr 08/26/22 21:00 0.9% Sodium Chloride 10 Ml Disp.Syrin IVF Q8HR PATRICIA Spironolactone 25 mg 08/27/22 09:00 Spironolactone 25 Mg Tablet PO DAILY PATRICIA Tamsulosin HCl 0.4 mg 08/27/22 09:00 Tamsulosin Hcl 0.4 Mg Cap.Er.24h PO DAILY PATRICIA Discontinued Medications Generic Name Dose Route Start Last Admin Trade Name Anny PRN Reason Stop Dose Admin Albuterol/Ipratropium 3 ml 08/26/22 10:28 08/26/22 10:35 Ipratropium/Albuterol Vial.[facility] 08/26/22 10:29 3 ml ONCE STA Administration Albuterol/Ipratropium 3 ml 08/26/22 13:04 08/26/22 13:11 Ipratropium/Albuterol Vial.[facility] 08/26/22 13:05 3 ml ONCE STA Administration Methylprednisolone Sodium Succinate 125 mg 08/26/22 10:28 08/26/22 10:40 Methylprednisolone Sod Succ/Pf 125 Mg/2 Ml Vial IVP 08/26/22 10:29 125 mg ONCE STA Administration Morphine Sulfate 2 mg 08/26/22 10:08/26/22 10:41 Morphine Sulfate 2 Mg/Ml Syringe IVP 08/26/22 10:28 2 mg ONCE ONE Administration Ondansetron HCl 4 mg 08/26/22 10:27 08/26/22 10:38 Ondansetron Hcl/Pf 4 Mg/2 Ml Sdv IVP 08/26/22 10:28 4 mg ONCE STA Administration Vital Signs: Temp Pulse Resp BP Pulse Ox 08/26/22 10:04 97.1 F L 89 24 H 118/83 95 AMI Core EKG Initial Interpretation EKG Initial Interpretation Date: 08/26/22 IQRA Risk Score IQRA Risk Score: Risk Score Odds of by 30D 0 0.1 (0.1-0.2) 1 0.3 (0.2-0.3) 2 0.4 (0.3-0.5) 3 0.7 (0.6-0.9) 4 1.2 (1.0-1.5) 5 2.2 (1.9-2.6) 6 3.0 (2.5-3.6) 7 4.8 (3.8-6.1) Discharge Plan Discharge Patient Disposition: PLACED OBSERVATION Discharge Problem: Chest pain, COPD with acute exacerbation Did you review [place] [employer] PU[employer]ING SUPERVISOR for ALL controlled substances?: Not Applicable ED Provider: GABRIELLE MERLOS Condition: Good Physician Progress Note: []
[2022-08-26] MEDS ORDERED: ZOFRAN 4 MG/2 ML IVP STA (10:27)
[2022-08-26] MEDS ORDERED: MORPHINE 2 MG/ML SYRINGE IVP ONE (10:27)
[2022-08-26] MEDS ORDERED: SOLU-MEDROL 125 MG IVP STA (10:28)
[2022-08-26] MEDS ORDERED: DUONEB NEB STA ×2 (10:28→13:04)
--- NOTE | 2022-08-26 10:28 | DI ---
EXAM: SINGLE VIEW OF THE CHEST HISTORY: Chest pain and cough. COMPARISON: Chest x-ray 08/04/2022 and CTA chest 08/04/2022 FINDINGS: Cardiomediastinal silhouette is unremarkable. There is no pneumothorax. There is left bas ilar ground-glass / atelectasis. The right lung apex is poorly evaluated. The osseous structures ar e stable. IMPRESSION: No acute cardiopulmonary process with left basilar ground-glass suggestive of airway thi ckening. This is consistent with prior CT.
[2022-08-26 10:35] LABS: ALANINE AMINOTRANSFERASE 18.5 U/L (0-50); ALBUMIN 4.29 g/dL (3.5-5.0); ALKALINE PHOSPHATASE 77.3 U/L (56-119); ASPARTATE AMINO TRANSFERASE 24.1 U/L (17-59); BILIRUBIN,TOTAL 0.89 mg/dL (0.2-1.3); BLOOD UREA NITROGEN 20.5 mg/dL (9-20); CALCIUM 9.15 mg/dL (8.4-10.2); CHLORIDE 94.1 mmol/L (98-107); CREATINE KINASE 22.2 U/L (55-170); CREATININE 0.92 mg/dL (0.60-1.10); POTASSIUM 3.88 mmol/L (3.5-5.1); SODIUM 140.1 mmol/L (134.5-145); TOTAL PROTEIN 8.03 g/dL (6.3-8.2)
[2022-08-26 10:44] LABS: CARBON DIOXIDE 42.2 mmol/L (22-30.0)
[2022-08-26 10:46] LABS: TROPONIN I < 0.012 ng/ml (0.0000-0.120)
--- NOTE | 2022-08-26 13:20 | PCM ---
Date of Service Date Seen by Provider: 08/26/22 Time Seen by Provider: 13:30 Admit Day/Time Admission Date: 08/26/22 Admission Time: 13:06 Reason for Admission Chief Complaint: COPD EXACERBATION Hospital Provider Hospital Provider: Derick Dominique PA-C , [facility] [place] [facility] Primary Care Physician: MACKENZIE RAMIREZ MD History of Present Illness History of Present Illness: Patient is an 87-year-old male with past medical history of bilateral pulmonary embolism, chronic respiratory failure due to COPD, chronic kidney disease, gout, hypertension, CHF, vitamin B12 deficiency, DJD who presented to the ER with 1 to 2-day history of chest pain and shortness of breath. He states that the chest pain is worse when he takes a deep breath. It is right-sided. It does not radiate. He denies a cough or fever. States he just feels more short of breath than normal. He has been taking his Eliquis for his recently diagnosed pulmonary embolisms. He denies any significant cardiac history. No history of MIs or stenting. He does take Lasix for heart failure. In the ER he is found to have no changes on his EKG and normal troponin. No change in delta trop. Chest x-ray showed chronic findings. He was given 2 nebulizers. Still feeling short of breath following those. He states that his chest pain was initially a 5 out of 10 and is now a 1 out of 10. Requires 2L at baseline. Patient admitted to [facility] observation. Case Discussed With Case Discussed With: Patient's case was discussed with the ER Physicians, Dr. Arana. [facility] Medical History Acute exacerbation of chronic bronchitis J20.9 - Acute bronchitis, unspecified (ICD-10) J42 - Unspecified chronic bronchitis (ICD-10) Acute hypokalemia E87.6 - Hypokalemia (ICD-10) Acute pneumonitis J18.9 - PNEUMONIA, UNSPECIFIED ORGANISM (ICD-10) B12 deficiency E53.8 - Deficiency of other specified B group vitamins (ICD-10) BPH (benign prostatic hyperplasia) N40.0 - BENIGN PROSTATIC HYPERPLASIA WITHOUT LOWER URINRY TRACT SYMP (ICD- 10) CAP (community acquired pneumonia) J18.9 - Pneumonia, unspecified organism (ICD-10) Cellulitis L03.90 - Cellulitis, unspecified (ICD-10) CHF (congestive heart failure) I50.9 - HEART FAILURE, UNSPECIFIED (ICD-10) CKD (chronic kidney disease) N18.9 - CHRONIC KIDNEY DISEASE, UNSPECIFIED (ICD-10) COPD (chronic obstructive pulmonary disease) J44.9 - CHRONIC OBSTRUCTIVE PULMONARY DISEASE, UNSPECIFIED (ICD-10) COR (chronic cor pulmonale) I27.81 - COR PULMONALE (CHRONIC) (ICD-10) Diabetes mellitus type 2 in obese E11.9 - TYPE 2 DIABETES MELLITUS WITHOUT COMPLICATIONS (ICD-10) Dyslipidemia E78.4 - OTHER HYPERLIPIDEMIA * DO NOT USE * (ICD-10) Essential (primary) hypertension I10 - ESSENTIAL (PRIMARY) HYPERTENSION (ICD-10) Hypothyroidism E03.9 - Hypothyroidism, unspecified (ICD-10) Pneumonia J18.9 - Pneumonia, unspecified organism (ICD-10) Pneumonitis J18.9 - Pneumonia, unspecified organism (ICD-10) Skin cancer C44.90 - UNSPECIFIED MALIGNANT NEOPLASM OF SKIN, UNSPECIFIED (ICD-10) Family History GRANDDAUGHTER No problems noted. FATHER Heart disease BROTHER Heart disease Other No known health problems Social History Smoking and tobacco status: Former smoker Quit status: has quit before Alcohol intake: former Substance use type: does not use Household members: none Housing: house Lives independently: Yes Number of children: 0 service: Yes Current occupational status: retired Pets and animals: Yes Current gender identity: male Seatbelt use: always Drives intoxicated or rides with intoxicated carry all driver: No Water heater temperature set < 120 degrees: Yes Working smoke detector in home: Yes Fire extinguisher in home: Yes Carbon monoxide detector in home: Yes Firearms in home: Yes Allergies Allergies Allergy/AdvReac Type Severity Reaction Status Date / Time No Known Allergies Allergy Verified 08/26/22 10:11 Current Medications Home Medications Spironolactone 25 mg PO DAILY #30 tabs 06/25/18 [Rx Confirmed 08/26/22 Last Taken 08/26/22 07:00] pravastatin 40 mg tablet 40 mg PO BEDTIME #90 tabs 05/02/19 [Rx Confirmed 08/26/22 Last Taken 08/25/22 20:00] levothyroxine 100 mcg tablet 100 mcg PO QDAC 11/08/19 [History Confirmed 08/26/22 Last Taken 08/26/22 07:00] prednisone 5 mg tablet 5 mg PO DAILYWM 05/06/21 [History Confirmed 08/26/22 Last Taken 08/26/22 07:00] furosemide 40 mg tablet 40 mg PO QDAC 05/14/21 [History Confirmed 08/26/22 Last Taken 08/26/22 07:00] escitalopram oxalate 20 mg tablet (Lexapro) 20 mg PO DAILY #30 tabs 05/23/21 [Rx Confirmed 08/26/22 Last Taken 08/26/22 07:00] lorazepam 1 mg tablet 1 mg PO BEDTIME 11/30/21 [History Confirmed 08/26/22 Last Taken 08/25/22 20:30] allopurinol 100 mg tablet See Rx Instructions .Route .COMPLEX #180 tabs 06/02/22 [Rx Confirmed 08/26/22 Last Taken 08/26/22 07:00] carvedilol 3.125 mg tablet See Rx Instructions .Route .COMPLEX #90 tabs 06/02/22 [Rx Confirmed 08/26/22 Last Taken 08/26/22 07:00] omeprazole 40 mg capsule,delayed release See Rx Instructions .Route .COMPLEX #90 caps 06/02/22 [Rx Confirmed 08/26/22 Last Taken 08/26/22 07:00] metformin 500 mg tablet See Rx Instructions .Route .COMPLEX #90 tabs 08/08/22 [Rx Confirmed 08/26/22 Last Taken 08/26/22 07:00] tamsulosin 0.4 mg capsule See Rx Instructions .Route .COMPLEX #90 caps 08/08/22 [Rx Confirmed 08/26/22 Last Taken Unknown] budesonide 1 mg/2 mL suspension for nebulization See Rx Instructions .Route .COMPLEX #60 mL 08/19/22 [Rx Confirmed 08/26/22 Last Taken 08/25/22 20:00] ipratropium 0.5 mg-albuterol 3 mg (2.5 mg base)/3 mL nebulization soln See Rx Instructions .Route .COMPLEX #360 mL 08/19/22 [Rx Confirmed 08/26/22 Last Taken Unknown] apixaban 5 mg tablet (Eliquis) See Rx Instructions .Route .COMPLEX #60 tabs 08/25/22 [Rx Confirmed 08/26/22 Last Taken 08/26/22 07:00] bupropion HCl 75 mg tablet See Rx Instructions .Route .COMPLEX #30 tabs 08/25/22 [Rx Confirmed 08/26/22 Last Taken 08/26/22 07:00] azithromycin 250 mg tablet (Zithromax Z-Salomon) See Rx Instructions PO .COMPLEX #6 tabs 08/27/22 [Rx Last Taken Unknown] prednisone 20 mg tablet 20 mg PO BID 5 days #10 tabs 08/27/22 [Rx Last Taken Unknown] Home Albuterol/Ipratropium (Ipratropium/Albuterol Vial.Neb) 3 ml NEB RTQID COUNTS INCLUDE 234 BEDS AT THE [facility] Last Admin: 08/27/22 10:12 Dose: 3 ml Allopurinol (Allopurinol 100 Mg Tablet) 200 mg PO DAILY COUNTS INCLUDE 234 BEDS AT THE [facility] Last Admin: 08/27/22 08:12 Dose: 200 mg Apixaban (Apixaban 5 Mg Tab) 5 mg PO BID COUNTS INCLUDE 234 BEDS AT THE [facility] Last Admin: 08/27/22 08:13 Dose: 5 mg Azithromycin (Azithromycin 250 Mg Tablet) 500 mg PO DAILY PATRICIA Stop: 08/29/22 14:29 Last Admin: 08/27/22 08:12 Dose: 500 mg Bupropion HCl (Bupropion Hcl 75 Mg Tablet) 75 mg PO DAILY COUNTS INCLUDE 234 BEDS AT THE [facility] Last Admin: 08/27/22 08:12 Dose: 75 mg Carvedilol (Carvedilol 3.125 Mg Tablet) 3.125 mg PO DAILYWM COUNTS INCLUDE 234 BEDS AT THE [facility] Last Admin: 08/27/22 08:12 Dose: 3.125 mg Escitalopram Oxalate (Escitalopram Oxalate 10 Mg Tablet) 20 mg PO DAILY COUNTS INCLUDE 234 BEDS AT THE [facility] Last Admin: 08/27/22 08:12 Dose: 20 mg Furosemide (Furosemide 40 Mg Tablet) 40 mg PO QDAC COUNTS INCLUDE 234 BEDS AT THE [facility] Last Admin: 08/27/22 05:54 Dose: 40 mg Levothyroxine Sodium (Levothyroxine Sodium 100 Mcg Tablet) 100 mcg PO QDAC COUNTS INCLUDE 234 BEDS AT THE [facility] Last Admin: 08/27/22 05:54 Dose: 100 mcg Lorazepam (Lorazepam 1 Mg Tablet) 1 mg PO BEDTIME COUNTS INCLUDE 234 BEDS AT THE [facility] Last Admin: 08/26/22 20:48 Dose: 1 mg Methylprednisolone Sodium Succinate (Methylprednisolone Sod Succ/Pf 125 Mg/2 Ml Vial) 40 mg IVP Q8HR COUNTS INCLUDE 234 BEDS AT THE [facility] Last Admin: 08/27/22 05:54 Dose: 40 mg Omeprazole (Omeprazole 20 Mg Capsule.Dr) 40 mg PO QDAC COUNTS INCLUDE 234 BEDS AT THE [facility] Last Admin: 08/27/22 05:54 Dose: 40 mg Pravastatin Sodium (Pravastatin Sodium 40 Mg Tablet) 40 mg PO BEDTIME COUNTS INCLUDE 234 BEDS AT THE [facility] Last Admin: 08/26/22 20:47 Dose: 40 mg Sodium Chloride (0.9% Sodium Chloride 10 Ml Disp.Syrin) 1 syr IVF PRN PRN PRN Reason: To flush IV Last Admin: 08/26/22 10:45 Dose: 1 syr Sodium Chloride (0.9% Sodium Chloride 10 Ml Disp.Syrin) 1 syr IVF Q8HR COUNTS INCLUDE 234 BEDS AT THE [facility] Last Admin: 08/27/22 05:54 Dose: 1 syr Spironolactone (Spironolactone 25 Mg Tablet) 25 mg PO DAILY COUNTS INCLUDE 234 BEDS AT THE [facility] Last Admin: 08/27/22 08:12 Dose: 25 mg Tamsulosin HCl (Tamsulosin Hcl 0.4 Mg Cap.Er.24h) 0.4 mg PO DAILY COUNTS INCLUDE 234 BEDS AT THE [facility] Last Admin: 08/27/22 08:12 Dose: 0.4 mg Discontinued Medications Albuterol/Ipratropium (Ipratropium/Albuterol Vial.Neb) 3 ml NEB ONCE STA Stop: 08/26/22 10:29 Last Admin: 08/26/22 10:35 Dose: 3 ml Albuterol/Ipratropium (Ipratropium/Albuterol Vial.Neb) 3 ml NEB ONCE STA Stop: 08/26/22 13:05 Last Admin: 08/26/22 13:11 Dose: 3 ml Methylprednisolone Sodium Succinate (Methylprednisolone Sod Succ/Pf 125 Mg/2 Ml Vial) 125 mg IVP ONCE STA Stop: 08/26/22 10:29 Last Admin: 08/26/22 10:40 Dose: 125 mg Morphine Sulfate (Morphine Sulfate 2 Mg/Ml Syringe) 2 mg IVP ONCE ONE Stop: 08/26/22 10:28 Last Admin: 08/26/22 10:41 Dose: 2 mg Ondansetron HCl (Ondansetron Hcl/Pf 4 Mg/2 Ml Sdv) 4 mg IVP ONCE STA Stop: 08/26/22 10:28 Last Admin: 08/26/22 10:38 Dose: 4 mg Review of Systems Constitutional: Reports Weakness; Denies Fever Head: Reports Normocephalic and Atraumatic Nose: Denies Post Nasal Drip or Congestion Throat: Denies Sore Throat Cardiovascular: Reports Chest pain and Edema (baseline); Denies Diaphoresis Respiratory: Reports Shortness of air; Denies Cough Gastrointestinal: Denies Nausea, Vomiting or Abdominal pain Genitourinary: Denies Dysuria or Hematuria Neurological: Reports Weakness (+generalized); Denies Headache, Dizziness or Syncope Physical examination Most Recent Vital Signs: Most Recent Vital Signs Temperature 97.1 F L 08/26/22 10:04 Temperature Source Infrared 08/26/22 10:04 Pulse Rate 89 08/26/22 10:04 Respiratory Rate 24 H 08/26/22 10:04 Blood Pressure 118/83 08/26/22 10:04 O2 Sat by Pulse Oximetry 95 08/26/22 10:04 Oxygen Flow Rate 2 08/26/22 10:04 Height 6 ft 08/26/22 10:04 Weight 220 lb 08/26/22 10:04 Telemetry Heart Rate 91 08/07/22 01:00 Telemetry SPO2 93 06/27/22 13:00 Appearance: Positive Alert and Oriented x3, Ill-Appearing (chronically ill) and Obese Skin: Positive [place], Warm and Good Turgor HEENT: Positive Normocephalic and Atraumatic Neck: Positive Supple and Midline Trachea Chest/Lungs: Positive Other (diminished breath sounds luc lower lobes) Heart: Positive RRR GI/: Positive Soft, Nontender and Bowel Sounds Normal Extremities: Positive Edema (2+ pitting edema luc lower ext. ) Neurological: Positive Cranial Nerves Intact, Alert and Oriented Psychiatric: Positive Oriented x4, Appropriate Mood and Appropriate Affect Labs This Visit Labs This Visit: Labs This Visit 08/26/22 08/26/22 08/26/22 10:12 10:15 10:29 WBC 11.46 H RBC 4.24 L Hgb 13.3 L Hct 42.3 MCV 99.8 H MCH 31.4 H MCHC 31.4 L RDW Coeff of Leonardo 14.6 Plt Count 298 Immature Gran % (Auto) 0.3 Neut % (Auto) 81.9 H Lymph % (Auto) 11.3 [place] % (Auto) 5.3 Eos % (Auto) 0.8 Baso % (Auto) 0.4 Neut # (Auto) 9.4 H Lymph # (Auto) 1.3 [place] # (Auto) 0.6 Eos # (Auto) 0.1 Baso # (Auto) 0.1 Immature Gran # (Auto) 0.0 Puncture Site [place] Excess 15.6 H O2 Saturation 96.3 ABG pH 7.45 ABG pCO2 57.0 H ABG pO2 80.0 L ABG HCO3 39.6 H ABG Total CO2 41.3 H Alfonzo Test Pos Hemoglobin 0.8 Oxyhemoglobin 95.2 Carboxyhemoglobin 2.0 H Total Hemoglobin 12.9 O2 Delivery Device Cannula Oxygen Liter Flow 2.00 Sodium 140.1 Potassium 3.88 Chloride 94.1 L Carbon Dioxide 42.2 H* Anion Gap 7.68 BUN 20.5 H Creatinine 0.92 Estimated GFR (MDRD) 78.00 BUN/Creatinine Ratio 22.28 Glucose 151.0 H Lactic Acid 1.09 Calcium 9.15 Total Bilirubin 0.89 AST 24.1 ALT 18.5 Alkaline Phosphatase 77.3 Total Creatine Kinase 22.2 L Troponin I < 0.012 Total Protein 8.03 Albumin 4.29 Globulin 3.74 Albumin/Globulin Ratio 1.14 Procalcitonin < 0.05 Imaging Imaging: EXAM: SINGLE VIEW OF THE CHEST HISTORY: Chest pain and cough. COMPARISON: Chest x-ray 08/04/2022 and CTA chest 08/04/2022 FINDINGS: Cardiomediastinal silhouette is unremarkable. There is no pneumothorax. There is left basilar ground-glass / atelectasis. The right lung apex is poorly evaluated. The osseous structures are stable. IMPRESSION: No acute cardiopulmonary process with left basilar ground-glass suggestive of airway thickening. This is consistent with prior CT. EKG Interpretation EKG Interpretation: No changes from previous EKGs, no stemi Review Statement Review Statement: I have independently reviewed and interpreted the labs/EKGs/imaging that were ordered by the ER provider. I have reviewed all outside records that are available currently in our EMR including imaging/notes/labs from previous visits. Plan Plan: 1. Chest pain - trend trops and EKGs. Pt on eliquis due to PEs. Trops negative so far. Chest pain improved. Clinically sounds like pleurisy. Pt had echo 06/22 showing LVH, normal EF. 2. COPD Exacerbation - Pt on baseline O2 however still feeling sob following 2 neb treatments. Solumedrol 40 q8hrs and nebs q6hrs. Will add on azith. 3. Recent luc PEs - Continue eliquis 4. Hypertension - Continue home meds 5. HFpEF - Continue home meds 6. Depression - Continue home meds 7. Hypothyroidism - Continue levothyroxine 8. DMT2 - Hold metformin. Humalog sliding scale. Accuchecks achs. 9. GERD - Continue home meds 10. Gout - Continue allopurinol 11. Hyperlipidemia - Continue pravastatin DVT Prophylaxis: Eliquis Time Spent: Greater than 80 minutes spent with patient, 50% of the time spent with this patient was devoted to counseling and coordination of care. [facility] minutes spent discussing advance care planning. DNR Admit to: Obs Discussed Plan of Care with Dr. Magaly Ramirez. Medications Medication Orders: Medications Ordered Category Date Time Status 0.9 % Sodium Chloride [Saline Flush] Meds 08/26/22 10:10 Active 1 syr IVF PRN PRN
[2022-08-26 14:07] VITALS: BMI 28.3
[2022-08-26] MEDS: ZITHROMAX PO SCH (15:52)
[2022-08-26] MEDS: DUONEB NEB SCH (19:20)
[2022-08-26] MEDS: ELIQUIS PO SCH (20:47)
[2022-08-26] MEDS: SOLU-MEDROL 125 MG IVP SCH (20:47)
[2022-08-26] MEDS ORDERED: PRAVACHOL PO SCH (21:00)
[2022-08-26] MEDS ORDERED: ATIVAN PO SCH (21:00)
[2022-08-27] MEDS: DUONEB NEB SCH ×2 (04:35→10:12)
[2022-08-27 05:17] VITALS: RESP 18
[2022-08-27] MEDS: SOLU-MEDROL 125 MG IVP SCH ×2 (05:54→12:31)
[2022-08-27] MEDS ORDERED: SYNTHROID PO SCH (06:30)
[2022-08-27] MEDS ORDERED: PRILOSEC PO SCH (06:30)
[2022-08-27] MEDS ORDERED: LASIX TAB PO SCH (06:30)
[2022-08-27] MEDS: ZITHROMAX PO SCH (08:12)
[2022-08-27] MEDS: ELIQUIS PO SCH (08:13)
[2022-08-27 08:20] LABS: BASOPHILS % (AUTO) 0.1 % (0.0-3.0); HEMATOCRIT 38.5 % (42.0-52.0); HEMOGLOBIN 11.8 g/dl (14.0-18.0); IMMATURE GRANULOCYTE % (AUTO) 0.3 % (0.0-5.0); LYMPHOCYTES % (AUTO) 12.9 (10.0-50.0); MEAN CORPUSCULAR HEMOGLOBIN 30.6 pg (27.0-31.0); MEAN CORPUSCULAR HGB CONC 30.6 (31.8-35.4); MEAN CORPUSCULAR VOLUME 99.7 fl (80.0-94.0); MONOCYTES # (AUTO) 0.2 K/uL (0.4-2.0); NEUTROPHILS # (AUTO) 6.7 K/ul (2.0-6.9); NEUTROPHILS % (AUTO) 84.7 % (42.2-75.2); PLATELET COUNT 294 10^3/uL (140-440); RDW COEFFICIENT OF VARIATION 14.4 % (11.6-14.8); RED BLOOD COUNT 3.86 10^6/ul (4.70-6.10); WHITE BLOOD COUNT 7.88 K/ul (4.2-10.2)
[2022-08-27 08:27] LABS: ALANINE AMINOTRANSFERASE 15.8 U/L (0-50); ALBUMIN 3.51 g/dL (3.5-5.0); ALKALINE PHOSPHATASE 58.7 U/L (56-119); ASPARTATE AMINO TRANSFERASE 21.9 U/L (17-59); BILIRUBIN,TOTAL 0.46 mg/dL (0.2-1.3); BLOOD UREA NITROGEN 23.8 mg/dL (9-20); CALCIUM 8.7 mg/dL (8.4-10.2); CARBON DIOXIDE 37.7 mmol/L (22-30.0); CHLORIDE 94.7 mmol/L (98-107); CREATININE 0.77 mg/dL (0.60-1.10); GLUCOSE 179.9 mg/dL (74-106); POTASSIUM 4.23 mmol/L (3.5-5.1); SODIUM 135.2 mmol/L (134.5-145); TOTAL PROTEIN 6.78 g/dL (6.3-8.2)
[2022-08-27] MEDS ORDERED: COREG PO SCH (08:30)
[2022-08-27] MEDS ORDERED: ZYLOPRIM PO SCH (09:00)
[2022-08-27] MEDS ORDERED: FLOMAX PO SCH (09:00)
[2022-08-27] MEDS ORDERED: LEXAPRO PO SCH (09:00)
[2022-08-27] MEDS ORDERED: ALDACTONE PO SCH (09:00)
[2022-08-27] MEDS ORDERED: WELLBUTRIN PO SCH (09:00)
[2022-08-27 10:11] VITALS: BP 119/75; TEMP 97.8
[2022-08-27 10:36] VITALS: PULSE 82
--- NOTE | 2022-08-27 12:04 | DCSUM ---
Admission Date Admission Date: 08/26/22 Discharge Date Discharge Date: 08/27/22 Admission Diagnosis Admission Diagnosis: 1. Chest pain 2. COPD Exacerbation Discharge Diagnosis Discharge Diagnosis: 1. Chest pain, atypical 2. COPD Exacerbation, improved 3. Recent luc PEs 4. Hypertension 5. HFpEF 6. Depression 7. Hypothyroidism 8. DMT2 9. GERD 10. Gout 11. Hyperlipidemia Hospital Provider Hospital Provider: DERICK DOMINIQUE PA-C, [facility] [place] Primary Care Physician Primary Care Physician: MACKENZIE FUENTES MD Summary of History and Physical Summary of History and Physical: Patient is an 87-year-old male with past medical history of bilateral pulmonary embolism, chronic respiratory failure due to COPD, chronic kidney disease, gout, hypertension, CHF, vitamin B12 deficiency, DJD who presented to the ER with 1 to 2-day history of chest pain and shortness of breath. He states that the chest pain is worse when he takes a deep breath. It is right-sided. It does not radiate. He denies a cough or fever. States he just feels more short of breath than normal. He has been taking his Eliquis for his recently diagnosed pulmonary embolisms. He denies any significant cardiac history. No history of MIs or stenting. He does take Lasix for heart failure. In the ER he is found to have no changes on his EKG and normal troponin. No change in delta trop. Chest x-ray showed chronic findings. He was given 2 nebulizers. Still feeling short of breath following those. He states that his chest pain was initially a 5 out of 10 and is now a 1 out of 10. Requires 2L at baseline. Patient admitted to [facility]. Hospital Course Subjective: Patient's trops remained undetectable. His EKGs were unchanged from previous. His right sided chest pain that is worse with deep breathes is atypical, unlikely cardiac. Echo recently with normal EF. Patient is on his baseline O2 requirement. He states he feels better today, sob is at baseline, and his chest pain is feeling better. No pain at rest, only with deep inspirations. He feels his leg swelling is at baseline as well. Unlikely new PE as patient is on baseline O2 and vitals are normal. Continue eliquis. Will do prednisone burst since patient's pain has improved with solumedrol. Will cover with azith due to COPD as well. Patient and niece who cares for him agree to plan of care. Red flags on when to return discussed. Appearance: Pleasant, No Apparent Distress, Alert, Well-appearing and Other (Wearing 2L nasal cannula ) HEENT: MMM and Supple CVS: No Murmur, No Rubs and No Gallop Abdomen: Soft, Non-Tender and No Distention Respiratory: No Accessory Muscle Use Extremities: Other (+2+ pitting edema luc lower ext, baseline ) Vital Signs: Most Recent Vital Signs Temperature 97.8 F 08/27/22 10:00 Temperature Source Oral 08/27/22 10:00 Temperature Source Infrared 08/26/22 10:04 Pulse Rate 78 08/27/22 10:00 Respiratory Rate 18 08/27/22 10:00 Blood Pressure 119/75 08/27/22 10:00 Blood Pressure Mean 89 08/27/22 10:00 Blood Pressure Right Arm 121/68 08/26/22 13:48 Blood Pressure Location Left Arm 08/27/22 10:00 Blood Pressure Position Sitting 08/27/22 10:00 O2 Sat by Pulse Oximetry 96 08/27/22 10:00 Oxygen Delivery Method Nasal Cannula 08/27/22 10:00 Oxygen Flow Rate 2 08/27/22 10:00 Height 6 ft 08/26/22 13:48 Weight 208 lb 11.2 oz 08/26/22 13:48 Telemetry Type Remote Telemetry 08/27/22 07:00 Telemetry Monitoring Continues 08/27/22 07:00 Telemetry Heart Rate 67 08/27/22 01:00 Telemetry SPO2 90 L 08/27/22 01:00 EKG CO Interval 0.18 08/27/22 07:00 EKG QRS Interval 0.08 08/27/22 07:00 EKG QT Interval 0.37 08/26/22 19:00 Telemetry Strip Reading SR 08/27/22 07:00 Imaging: HISTORY: Chest pain and cough. COMPARISON: Chest x-ray 08/04/2022 and CTA chest 08/04/2022 FINDINGS: Cardiomediastinal silhouette is unremarkable. There is no pneumothorax. There is left basilar ground-glass / atelectasis. The right lung apex is poorly evaluated. The osseous structures are stable. IMPRESSION: No acute cardiopulmonary process with left basilar ground-glass suggestive of airway thickening. This is consistent with prior CT. Lab Results Last 24 Hours: 08/27/22 08/26/22 08/26/22 05:06 21:57 13:24 WBC 7.88 RBC 3.86 L Hgb 11.8 L Hct 38.5 L MCV 99.7 H MCH 30.6 MCHC 30.6 L RDW Coeff of Leonardo 14.4 Plt Count 294 Immature Gran % (Auto) 0.3 Neut % (Auto) 84.7 H Lymph % (Auto) 12.9 Mcnairy % (Auto) 2.0 Eos % (Auto) 0.0 Baso % (Auto) 0.1 Neut # (Auto) 6.7 Lymph # (Auto) 1.0 Mcnairy # (Auto) 0.2 L Eos # (Auto) 0.0 Baso # (Auto) 0.0 Immature Gran # (Auto) 0.0 Puncture Site Base Excess O2 Saturation ABG pH ABG pCO2 ABG pO2 ABG HCO3 ABG Total CO2 Alfonzo Test Hemoglobin Oxyhemoglobin Carboxyhemoglobin Total Hemoglobin O2 Delivery Device Oxygen Liter Flow Sodium 135.2 Potassium 4.23 Chloride 94.7 L Carbon Dioxide 37.7 H Anion Gap 7.03 BUN 23.8 H Creatinine 0.77 Estimated GFR (MDRD) 96.00 BUN/Creatinine Ratio 30.90 Glucose 179.9 H Lactic Acid Calcium 8.70 Total Bilirubin 0.46 AST 21.9 ALT 15.8 Alkaline Phosphatase 58.7 Total Creatine Kinase Troponin I < 0.012 < 0.012 < 0.012 Total Protein 6.78 Albumin 3.51 Globulin 3.27 Albumin/Globulin Ratio 1.07 Procalcitonin 08/26/22 08/26/22 08/26/22 10:29 10:15 10:12 WBC RBC Hgb Hct MCV MCH MCHC RDW Coeff of Leonardo Plt Count Immature Gran % (Auto) Neut % (Auto) Lymph % (Auto) Mcnairy % (Auto) Eos % (Auto) Baso % (Auto) Neut # (Auto) Lymph # (Auto) Mcnairy # (Auto) Eos # (Auto) Baso # (Auto) Immature Gran # (Auto) Puncture Site [place] Excess 15.6 H O2 Saturation 96.3 ABG pH 7.45 ABG pCO2 57.0 H ABG pO2 80.0 L ABG HCO3 39.6 H ABG Total CO2 41.3 H Alfonzo Test Pos Hemoglobin 0.8 Oxyhemoglobin 95.2 Carboxyhemoglobin 2.0 H Total Hemoglobin 12.9 O2 Delivery Device Cannula Oxygen Liter Flow 2.00 Sodium 140.1 Potassium 3.88 Chloride 94.1 L Carbon Dioxide 42.2 H* Anion Gap 7.68 BUN 20.5 H Creatinine 0.92 Estimated GFR (MDRD) 78.00 BUN/Creatinine Ratio 22.28 Glucose 151.0 H Lactic Acid 1.09 Calcium 9.15 Total Bilirubin 0.89 AST 24.1 ALT 18.5 Alkaline Phosphatase 77.3 Total Creatine Kinase 22.2 L Troponin I < 0.012 Total Protein 8.03 Albumin 4.29 Globulin 3.74 Albumin/Globulin Ratio 1.14 Procalcitonin < 0.05 Discharge Instructions Discharge Planning: Discharge Planning > 70 minutes Discussed plan of care with Dr. Laura Fuentes. Discharge Medications: Medications at Discharge (Home Meds & RX) Spironolactone 25 mg PO DAILY #30 tabs 06/25/18 pravastatin 40 mg tablet 40 mg PO BEDTIME #90 tabs 07/01/18 levothyroxine 100 mcg tablet 100 mcg PO QDAC 11/08/19 prednisone 5 mg tablet 5 mg PO DAILYWM 05/06/21 furosemide 40 mg tablet 40 mg PO QDAC 05/14/21 escitalopram oxalate 20 mg tablet (Lexapro) 20 mg PO DAILY #30 tabs 05/23/21 lorazepam 1 mg tablet 1 mg PO BEDTIME 11/30/21 allopurinol 100 mg tablet See Rx Instructions .Route .COMPLEX #180 tabs 06/02/22 carvedilol 3.125 mg tablet See Rx Instructions .Route .COMPLEX #90 tabs 06/02/22 omeprazole 40 mg capsule,delayed release See Rx Instructions .Route .COMPLEX #90 caps 06/02/22 metformin 500 mg tablet See Rx Instructions .Route .COMPLEX #90 tabs 08/08/22 tamsulosin 0.4 mg capsule See Rx Instructions .Route .COMPLEX #90 caps 08/08/22 budesonide 1 mg/2 mL suspension for nebulization See Rx Instructions .Route .COMPLEX #60 mL 08/19/22 ipratropium 0.5 mg-albuterol 3 mg (2.5 mg base)/3 mL nebulization soln See Rx Instructions .Route .COMPLEX #360 mL 08/19/22 apixaban 5 mg tablet (Eliquis) See Rx Instructions .Route .COMPLEX #60 tabs 08/25/22 bupropion HCl 75 mg tablet See Rx Instructions .Route .COMPLEX #30 tabs 08/25/22 azithromycin 250 mg tablet (Zithromax Z-Salomon) See Rx Instructions PO .COMPLEX #6 tabs 08/27/22 prednisone 20 mg tablet 20 mg PO BID 5 days #10 tabs 08/27/22 Discharge Plan Discharge Discharge Orders: Discharge Patient (ONCE); Ordered 08/27/22 Ordered By: DERICK DOMINIQUE Activity Restrictions/Additional Instructions: DISCHARGE HOME TODAY RESUME DIET THAT IS HEART HEALTHY; LIMIT SODIUM INTAKE ACTIVITY: TOLERATED NEW MEDICATIONS: Z-PACK (ANTIBIOTIC) START TOMORROW PER DOSAGE INSTRUCTIONS PREDNISONE 20 MG TWICE A DAY FOR 5 DAYS. START TONIGHT WITH DINNER. RESUME ALL OTHER MEDICATIONS TAKEN PRIOR TO HOSPITALIZATION BE SURE TO AVOID TAKING NSAIDS WHILE YOU'RE ON ELIQUIS, THIS INCREASES YOUR RISK FOR BLEEDING. IF CHEST PAIN RETURNS, WORSENS, OR NEW SYMPTOMS DEVELOP SUCH GI DISCOMFORT, SWEATING, OR DIZZINESS, SEEK IMMEDIATE MEDICAL ATTENTION. PLEASE CALL AND SCHEDULE A FOLLOW UP APPOINTMENT WITH DR. FUENTES'S OFFICE WITHIN THE NEXT 3-5 DAYS. THEIR NUMBER IS [phone]. Instructions: Angina (DC), Chest Pain (GEN) Care Plan Goals: Problem: Chest Pain Goal #1: Absence/improved chest pain Instructions: Apply oxygen as ordered Take medication for chest pain as needed Monitor symptoms, N/V and diaphoresis Monitor chest pain characteristics Goal #2: No elevation in cardiac enzymes Instructions: Obtain labs to monitor enzyme levels Patient Disposition: HOME SELF-CARE Prescriptions: New prednisone 20 mg tablet 20 mg PO BID 5 Days Qty: 10 0RF azithromycin [Zithromax Z-Salomon] 250 mg tablet See Rx Instructions .ROUTE .COMPLEX Qty: 6 0RF Rx Instructions: For 250 mg dose pack: take 500 mg today (day 1), then 250 mg for 4 days (days 2-5) Continued carvedilol 3.125 mg tablet See Rx Instructions .ROUTE .COMPLEX Qty: 90 1RF Dose Instruction: take ONE (1) tablet by mouth every morning Rx Instructions: take ONE (1) tablet by mouth every morning allopurinol 100 mg tablet See Rx Instructions .ROUTE .COMPLEX Qty: 180 1RF Dose Instruction: take 2 tablets by mouth daily Rx Instructions: take 2 tablets by mouth daily omeprazole 40 mg capsule,delayed release(DR/EC) See Rx Instructions .ROUTE .COMPLEX Qty: 90 1RF Dose Instruction: TAKE ONE (1) CAPSULE BY MOUTH DAILY Rx Instructions: TAKE ONE (1) CAPSULE BY MOUTH DAILY metformin 500 mg tablet See Rx Instructions .ROUTE .COMPLEX Qty: 90 1RF Dose Instruction: TAKE ONE (1) TABLET BY MOUTH DAILY Rx Instructions: TAKE ONE (1) TABLET BY MOUTH DAILY tamsulosin 0.4 mg capsule See Rx Instructions .ROUTE .COMPLEX Qty: 90 1RF Dose Instruction: TAKE ONE (1) CAPSULE BY MOUTH DAILY Rx Instructions: TAKE ONE (1) CAPSULE BY MOUTH DAILY ipratropium-albuterol 0.5 mg-3 mg(2.5 mg base)/3 mL solution for nebulization See Rx Instructions .ROUTE .COMPLEX Qty: 360 10RF Dose Instruction: INHALE ONE (1) VIAL 4 TIMES DAILY Rx Instructions: INHALE ONE (1) VIAL 4 TIMES DAILY budesonide 1 mg/2 mL suspension for nebulization See Rx Instructions .ROUTE .COMPLEX Qty: 60 10RF Dose Instruction: USE ONE (1) VIAL PER NEBULIZER AT BEDTIME Rx Instructions: USE ONE (1) VIAL PER NEBULIZER AT BEDTIME bupropion HCl 75 mg tablet See Rx Instructions .ROUTE .COMPLEX Qty: 30 3RF Dose Instruction: TAKE ONE (1) TABLET BY MOUTH DAILY Rx Instructions: TAKE ONE (1) TABLET BY MOUTH DAILY Eliquis 5 mg tablet See Rx Instructions .ROUTE .COMPLEX Qty: 60 3RF Dose Instruction: TAKE ONE (1) BY MOUTH TWICE DAILY Rx Instructions: TAKE ONE (1) BY MOUTH TWICE DAILY Spironolactone 25 MG tablet 25 mg PO DAILY Qty: 30 0RF furosemide 40 mg Tablet 40 mg PO QDAC escitalopram oxalate [Lexapro] 20 mg Tablet 20 mg PO DAILY Qty: 30 0RF pravastatin 40 MG tablet 40 mg PO BEDTIME Qty: 90 0RF levothyroxine 100 MCG tablet 100 mcg PO QDAC prednisone 5 mg tablet 5 mg PO DAILYWM lorazepam 1 mg tablet 1 mg PO BEDTIME Did you review [place] CASEY SAW OPERATOR for ALL controlled substances?: Not Applicable Discussed opioids are addictive and Narcan is available by prescription or from pharmacy.: No Condition: Good
== END 2022-08-27 13:00 | disposition home or self-care (01) ==
LOC: ED 10:03 → MEDSURG B 10:03
PROVIDERS: ADMIT Hospitalist; ATTEND Physician Assistant

== ENCOUNTER 2023-02-01 14:42 | Inpatient (IN) ==
[2023-02-01] MEDS ORDERED: DUONEB NEB ONE (14:45)
--- NOTE | 2023-02-01 14:46 | ED.PDOC ---
General ED Provider: Dr. LAURA JEFFRIES MD Chief Complaint: Respiratory Complaint Stated Complaint: Patient with a history of COPD, congestive heart failure, pulmonary embolism, presently on anticoagulation Eliquis 5 mg twice daily and chronic kidney disease complains of having increasing dyspnea worse upon exertion x 1 week, associate with a productive cough yellow sputum. Patient presents emergency room without his home oxygen. Patient denies chest pain fever, chills. Time Seen by Provider: 02/01/23 14:45 Mode of Arrival: Wheelchair Information Source: Patient Primary Care Provider: MACKENZIE RAMIREZ MD Nursing and Triage Documentation Reviewed and Agree: Yes Review of Systems Review Of Systems Constitutional: Reports Weakness Eyes: Reports No symptoms Ears, Nose, Mouth, Throat: Reports No symptoms Respiratory: Reports Cough, Shortness of Breath and Wheezing Cardiac: Reports No symptoms GI: Reports No symptoms : Reports No symptoms Musculoskeletal: Reports No symptoms Skin: Reports No symptoms Neurological: Reports No symptoms Endocrine: Reports No symptoms Hematologic/Lymphatic: Reports No symptoms All Other Systems: Reviewed and Negative [facility] Medical History Encounter for Medicare annual wellness exam Z00.00 - Encounter for general adult medical examination without abnormal findings (ICD-10) Pneumonia J18.9 - Pneumonia, unspecified organism (ICD-10) Pneumonitis J18.9 - Pneumonia, unspecified organism (ICD-10) Wound of right leg resolved S81.801A - Unspecified open wound, right lower leg, initial encounter (ICD- 10) CAP (community acquired pneumonia) J18.9 - Pneumonia, unspecified organism (ICD-10) Acute hypokalemia E87.6 - Hypokalemia (ICD-10) Acute exacerbation of chronic bronchitis J20.9 - Acute bronchitis, unspecified (ICD-10) J42 - Unspecified chronic bronchitis (ICD-10) Cellulitis Right lower extremity; April 2021 L03.90 - Cellulitis, unspecified (ICD-10) B12 deficiency E53.8 - Deficiency of other specified B group vitamins (ICD-10) Hypothyroidism E03.9 - Hypothyroidism, unspecified (ICD-10) CHF (congestive heart failure) I50.9 - HEART FAILURE, UNSPECIFIED (ICD-10) Essential (primary) hypertension I10 - ESSENTIAL (PRIMARY) HYPERTENSION (ICD-10) COPD (chronic obstructive pulmonary disease) J44.9 - CHRONIC OBSTRUCTIVE PULMONARY DISEASE, UNSPECIFIED (ICD-10) CKD (chronic kidney disease) N18.9 - CHRONIC KIDNEY DISEASE, UNSPECIFIED (ICD-10) BPH (benign prostatic hyperplasia) N40.0 - BENIGN PROSTATIC HYPERPLASIA WITHOUT LOWER URINRY TRACT SYMP (ICD- 10) Skin cancer C44.90 - UNSPECIFIED MALIGNANT NEOPLASM OF SKIN, UNSPECIFIED (ICD-10) Dyslipidemia E78.4 - OTHER HYPERLIPIDEMIA * DO NOT USE * (ICD-10) Diabetes mellitus type 2 in obese E11.9 - TYPE 2 DIABETES MELLITUS WITHOUT COMPLICATIONS (ICD-10) COR (chronic cor pulmonale) I27.81 - COR PULMONALE (CHRONIC) (ICD-10) Acute pneumonitis J18.9 - PNEUMONIA, UNSPECIFIED ORGANISM (ICD-10) Family History GRANDDAUGHTER No problems noted. FATHER Heart disease BROTHER Heart disease Other No known health problems Social History Smoking and tobacco status: Former smoker Quit status: has quit before Alcohol intake: former Substance use type: does not use Special aidan needs: No Agree to transfusion: Yes Adopted: No Caregiver/support person: No Foster care: No Household members: none Housing: house Lives independently: Yes Daycare: no daycare Number of children: 0 service: Yes assisted: No Current occupational status: retired Pets and animals: Yes History of recent travel: No Do you think of yourself as: straight/heterosexual Current gender identity: male Seatbelt use: always Drives intoxicated or rides with intoxicated water taxi driver: No Water heater temperature set < 120 degrees: Yes Working smoke detector in home: Yes Fire extinguisher in home: Yes Carbon monoxide detector in home: Yes Firearms in home: Yes Physical Exam Physical Exam Appearance: Reports Ill-appearing Ill-appearing: Moderate Pain Distress: None Eyes: Reports NATHAN and EOMI ENT: Reports Ears normal, Nose normal and Oropharynx normal Neck: Supple Respiratory: Reports Airway patent, Breath sounds diminished (There are diminished breath sounds at the bases with terminal expiratory wheezes are faint. No crackles or rales noted.) and Wheezes Cardiovascular: Reports RRR, Pulses normal, No rub and No murmur GI/: Reports Soft, Nontender, No masses, Bowel sounds normal and No Organomegaly Musculoskeletal: Reports Normal strength, ROM intact and Edema (There is 2+ pitting edema from the feet to the knees there is no associated calf tenderness noted peripheral pulses 2+ femoral popliteal pedis.) Skin: Reports Warm and Dry Neurological: Reports Sensation intact, Motor intact and Reflexes intact Psychiatric: Reports Affect appropriate and Mood appropriate Interpretation EKG Interpretation EKG Interpretation By: ED Physician Time of EKG #1: 15:02 Rate: Normal Rhythm: Sinus Ectopy: None [place]: [place] ST Segment: Normal Interpretation: Right 87 for right bundle branch block, left anterior fascicular block Radiology Interpretation Radiology Interpretation By: ED Physician Radiology Results: No acute changes Exam Interpreted: CXR Xray Comments: chest x-ray interpretation by myself shows no acute cardiopulmonary process Re-Evaluation Re-Evaluation Time of Re-Evaluation: 15:45 Status: Improved Vital Signs Stable: Yes Pain Level: Clinical reassessment chest examination breath sounds have improved Physician Notification Case Discussed Physician Notified: Discussed with Dr. Ml Ramirez at 1600 for admission to the hospital service Time of Notification: 16:00 Physician Notified: Discussed with the hospitalist Marybeth Barajas Time of Notification: 16:06 Comments: For observation after review of all laboratory data normal portable chest x-ray normal white blood cell count on CBC Critical Care Note Critical Care Note Total Critical Care Time (mins): 20 Course Course 02/01/23 15:13 02/01/23 15:13 Orders, Labs, Meds: Lab Review 02/01/23 02/01/23 02/01/23 14:50 15:13 15:15 WBC 8.28 RBC 4.08 L Hgb 11.5 L Hct 38.7 L MCV 94.9 H MCH 28.2 MCHC 29.7 L RDW Coeff of Leonardo 16.0 H Plt Count 303 Immature Gran % (Auto) 0.4 Neut % (Auto) 77.1 H Lymph % (Auto) 9.4 L Jack % (Auto) 12.7 H Eos % (Auto) 0.2 Baso % (Auto) 0.2 Neut # (Auto) 6.4 Lymph # (Auto) 0.8 Jack # (Auto) 1.1 Eos # (Auto) 0.0 Baso # (Auto) 0.0 Immature Gran # (Auto) 0.0 PT 11.8 H INR 1.14 Puncture Site [place]rad Base Excess 15.6 H O2 Saturation 87.5 L ABG pH 7.47 H ABG pCO2 54.0 H ABG pO2 50.0 L* ABG HCO3 39.3 H ABG Total CO2 41.0 H Alfonzo Test Pos Hemoglobin 0.9 Oxyhemoglobin 85.6 L Carboxyhemoglobin 2.1 H Total Hemoglobin 12.2 FiO2 % 21.0 Sodium 135.4 Potassium 3.91 Chloride 90.1 L Carbon Dioxide 39.2 H Anion Gap 10.01 BUN 27.6 H Creatinine 1.00 Estimated GFR (MDRD) 71.00 BUN/Creatinine Ratio 27.60 Glucose 147.4 H Lactic Acid 2.13 H Calcium 8.39 L Total Bilirubin 1.44 H AST 25.5 ALT 15.7 Alkaline Phosphatase 71.5 Troponin I < 0.012 NT-Pro-B Natriuret Pep 393 H Total Protein 7.76 Albumin 3.84 Globulin 3.92 Albumin/Globulin Ratio 0.97 Influ A Molecular Assay Negative by naat Influ B Molecular Assay Negative by naat RSV Antigen Negative by naat SARS CoV-2 RNA Rapid BAL Negative Orders Category Date Time Status ADMIT OBSERVATION [PLACE PATIENT OBSERVATION] .TO ADMISSION 02/01/23 16:13 Active MEDSURG (MONITORED BED) ABG DRAW REQUEST Stat CARDIO 02/01/23 14:45 Completed EKG-(ED ONLY) Stat CARDIO 02/01/23 14:45 Completed TELEMETRY MONITORING TELE CARE 02/01/23 16:13 Active ABG COOX Stat LAB 02/01/23 14:50 Completed BLOOD CULTURE (ED ONLY) Stat LAB 02/01/23 15:27 Received CBC W/ AUTO DIFF Stat LAB 02/01/23 15:13 Completed CMP [COMPREHENSIVE METABOLIC PANEL] Stat LAB 02/01/23 15:13 Completed COVID [SARS COV-2 RNA RAPID BAL] Stat LAB 02/01/23 15:15 Completed ED PROBNP [NT-PROBNP(ED)] Stat LAB 02/01/23 15:13 Completed FLU A & B MOLECULAR [FLU A/B MOLECULAR] Stat LAB 02/01/23 15:15 Completed LACTIC ACID Stat LAB 02/01/23 15:13 Completed PT WITH INR Stat LAB 02/01/23 15:13 Completed RSV Stat LAB 02/01/23 15:15 Completed TROPONIN I Stat LAB 02/01/23 15:13 Completed Ceftriaxone/D5w 1 gm Premix [Rocephin 1 gm/50 ml D5w] Meds 02/01/23 14:51 Discontinued 1 gm in 50 ml IV ONCE Ipratropium/Albuterol Neb [Duoneb] Meds 02/01/23 14:45 Discontinued 3 ml NEB ONCE ONE Methylprednisolone Sod Succ/Pf [Solu-Medrol 125 mg] Meds 02/01/23 14:51 Discontinued 125 mg IVP ONCE ONE CHEST, 1V AP ONLY Stat RADS 02/01/23 14:58 Completed Medications Discontinued Medications Generic Name Dose Route Start Last Admin Trade Name Freq PRN Reason Stop Dose Admin Albuterol/Ipratropium 3 ml 02/01/23 14:45 02/01/23 15:13 Ipratropium/Albuterol Vial.Neb NEB 02/01/23 14:46 3 ml ONCE ONE Administration CEFTRIAXONE/D5W 1 GM PREMIX 1 gm in 50 mls @ 100 mls/hr 02/01/23 14:51 02/01/23 15:25 Rocephin 1 Gm/50 Ml D5w IV 02/01/23 15:20 100 mls/hr ONCE ONE Administration Methylprednisolone Sodium Succinate 125 mg 02/01/23 14:51 02/01/23 15:04 Methylprednisolone Sod Succ/Pf 125 Mg/2 Ml Vial IVP 02/01/23 14:52 125 mg ONCE ONE Administration Vital Signs: Temp Pulse Resp BP Pulse Ox O2 Flow Rate 02/01/23 14:55 3 02/01/23 14:44 97.5 F L 138 H 26 H 127/73 83 L Discharge Plan Discharge Patient Disposition: PLACED OBSERVATION Discharge Problem: Acute exacerbation of chronic obstructive pulmonary disease Did you review [place] TRANSLATOR INTERPRETER for ALL controlled substances?: Not Applicable ED Provider: LAURA JEFFRIES Physician Progress Note: History obtained from the patient was his family who complains of increasing dyspnea and a productive cough for the past week states he is compliant with home oxygen while at home arrives emergency room without his oxygen. Patient denies chest pain, fever, arthralgia. Pulse oximetry room air is 88% Patient placed on 2 L of oxygen pulse oximetry is 95%. An arterial blood gas on room air the pH is 7.47, pCO2 54, pO2--50, bicarb 12, saturation 87%-- Patient administered DuoNeb aerosol treatment, IV Solu-Medrol 125 mg, after 2 sets of blood cultures Rocephin 1 g IV piggyback. Pulse oximetry after DuoNeb aerosol treatment on 2 L is 97%. Clinic reassessment-chest examination increased air exchange at the bases with resolution of the terminal faint expiratory wheezes. Laboratory data CBC within normal limits, the white blood cell count is 8200, hemoglobin 11.5, hematocrit 38.7, platelet count 303,000 Troponin 0.012, BNP of 393, chemistry all normal. Except for BUN 27 Differential diagnosis: 1) acute exacerbation COPD Discussed with Dr. Ml Ramirez at 1604 admission for hospitalist to manage 1606 discussed with hospitalist Mraybeth Chacon for admit to observation []
[2023-02-01] MEDS ORDERED: ROCEPHIN 1 GM/50 ML D5W 1 GM/50 ML BAG IV ONE (14:51)
[2023-02-01] MEDS ORDERED: SOLU-MEDROL 125 MG IVP ONE (14:51)
[2023-02-01 14:56] LABS: ABG O2 HGB 85.6 % (95-100); ABG PH 7.47 (7.35-7.45); BEecf 15.6 (-2.0-3.0); COHb 2.1 (0.5-1.5); HCO3 39.3 (21-28); MetHb 0.9 (0-1.5); sO2 87.5 % (94-98); tHb 12.2 g/dl (11.7-17.4)
[2023-02-01 15:19] LABS: BASOPHILS % (AUTO) 0.2 % (0.0-3.0); EOSINOPHILS % (AUTO) 0.2 % (0.0-7.0); HEMATOCRIT 38.7 % (42.0-52.0); HEMOGLOBIN 11.5 g/dl (14.0-18.0); IMMATURE GRANULOCYTE % (AUTO) 0.4 % (0.0-5.0); LYMPHOCYTES # (AUTO) 0.8 K/uL (0.60-3.4); LYMPHOCYTES % (AUTO) 9.4 (10.0-50.0); MEAN CORPUSCULAR HEMOGLOBIN 28.2 pg (27.0-31.0); MEAN CORPUSCULAR HGB CONC 29.7 (31.8-35.4); MEAN CORPUSCULAR VOLUME 94.9 fl (80.0-94.0); MONOCYTES # (AUTO) 1.1 K/uL (0.4-2.0); MONOCYTES % (AUTO) 12.7 (0-10); NEUTROPHILS # (AUTO) 6.4 K/ul (2.0-6.9); NEUTROPHILS % (AUTO) 77.1 % (42.2-75.2); PLATELET COUNT 303 10^3/uL (140-440); RED BLOOD COUNT 4.08 10^6/ul (4.70-6.10); WHITE BLOOD COUNT 8.28 K/ul (4.2-10.2)
--- NOTE | 2023-02-01 15:25 | DI ---
EXAM: ONE-VIEW CHEST HISTORY: Cough TECHNIQUE: Single frontal view the chest was obtained. Comparison 08/26/2022. FINDINGS: The heart is stable size. Lungs are clear. The pulmonary vasculature appears normal. Th e osseous structures are normal. IMPRESSION: No active cardiopulmonary disease.
[2023-02-01 15:31] LABS: ALANINE AMINOTRANSFERASE 15.7 U/L (0-50); ALBUMIN 3.84 g/dL (3.5-5.0); ALKALINE PHOSPHATASE 71.5 U/L (56-119); ASPARTATE AMINO TRANSFERASE 25.5 U/L (17-59); BILIRUBIN,TOTAL 1.44 mg/dL (0.2-1.3); BLOOD UREA NITROGEN 27.6 mg/dL (9-20); CALCIUM 8.39 mg/dL (8.4-10.2); CARBON DIOXIDE 39.2 mmol/L (22-30.0); CHLORIDE 90.1 mmol/L (98-107); GLUCOSE 147.4 mg/dL (74-106); POTASSIUM 3.91 mmol/L (3.5-5.1); SODIUM 135.4 mmol/L (134.5-145); TOTAL PROTEIN 7.76 g/dL (6.3-8.2)
[2023-02-01 15:36] LABS: MOLECULAR FLU A NEGATIVE BY NAAT (NEGATIVE); MOLECULAR FLU B NEGATIVE BY NAAT (NEGATIVE); RSV MOLECULAR NEGATIVE BY NAAT (NEGATIVE); SARS COV-2 RNA RAPID NAAT NEGATIVE (NEGATIVE)
[2023-02-01 15:43] LABS: TROPONIN I < 0.012 ng/ml (0.0000-0.120)
[2023-02-01 15:46] LABS: PROTHROMBIN TIME 11.8 SEC (9.3-11.0)
[2023-02-01 16:47] VITALS: BMI 30.1
[2023-02-01] MEDS ORDERED: TYLENOL PO PRN (17:21)
[2023-02-01] MEDS ORDERED: ULTRAM PO PRN (17:32)
[2023-02-01] MEDS: SOLU-MEDROL 40 MG IVP SCH ×2 (17:36→17:38)
[2023-02-01] MEDS ORDERED: DUONEB NEB PRN (17:36)
[2023-02-01] MEDS: ELIQUIS PO SCH ×2 (18:14→20:11)
[2023-02-01] MEDS: SYNTHROID PO SCH (19:00)
[2023-02-01] MEDS: PRAVACHOL PO SCH (20:11)
[2023-02-01] MEDS: ATIVAN PO SCH (20:11)
[2023-02-01] MEDS: HUMULIN R SUBCUT PRN (20:12)
[2023-02-01] MEDS: NYSTOP POWDER TP SCH (20:13)
[2023-02-02] MEDS: SOLU-MEDROL 40 MG IVP SCH ×4 (00:04→23:01)
[2023-02-02] MEDS: SYNTHROID PO SCH (05:12)
[2023-02-02 05:27] LABS: BASOPHILS % (AUTO) 0.1 % (0.0-3.0); HEMATOCRIT 36.3 % (42.0-52.0); HEMOGLOBIN 10.7 g/dl (14.0-18.0); IMMATURE GRANULOCYTE % (AUTO) 0.4 % (0.0-5.0); LYMPHOCYTES # (AUTO) 0.5 K/uL (0.60-3.4); LYMPHOCYTES % (AUTO) 6.8 (10.0-50.0); MEAN CORPUSCULAR HEMOGLOBIN 28.2 pg (27.0-31.0); MEAN CORPUSCULAR HGB CONC 29.5 (31.8-35.4); MEAN CORPUSCULAR VOLUME 95.8 fl (80.0-94.0); MONOCYTES # (AUTO) 0.1 K/uL (0.4-2.0); MONOCYTES % (AUTO) 1.5 (0-10); NEUTROPHILS # (AUTO) 6.2 K/ul (2.0-6.9); NEUTROPHILS % (AUTO) 91.2 % (42.2-75.2); PLATELET COUNT 250 10^3/uL (140-440); RDW COEFFICIENT OF VARIATION 15.9 % (11.6-14.8); RED BLOOD COUNT 3.79 10^6/ul (4.70-6.10); WHITE BLOOD COUNT 6.75 K/ul (4.2-10.2)
[2023-02-02 05:42] LABS: ALANINE AMINOTRANSFERASE 14.3 U/L (0-50); ALKALINE PHOSPHATASE 63.7 U/L (56-119); ASPARTATE AMINO TRANSFERASE 26.1 U/L (17-59); BILIRUBIN,TOTAL 0.63 mg/dL (0.2-1.3); BLOOD UREA NITROGEN 26.2 mg/dL (9-20); CALCIUM 8.26 mg/dL (8.4-10.2); CHLORIDE 91.3 mmol/L (98-107); CREATININE 0.84 mg/dL (0.60-1.10); GLUCOSE 170.7 mg/dL (74-106); POTASSIUM 3.71 mmol/L (3.5-5.1); SODIUM 133.8 mmol/L (134.5-145); TOTAL PROTEIN 7.16 g/dL (6.3-8.2)
[2023-02-02 05:46] LABS: CARBON DIOXIDE > 40.0 mmol/L (22-30.0)
[2023-02-02] MEDS: HUMULIN R SUBCUT PRN ×3 (05:50→20:45)
[2023-02-02] MEDS ORDERED: PRILOSEC PO SCH (09:00)
[2023-02-02] MEDS: NYSTOP POWDER TP SCH ×2 (09:01→20:33)
[2023-02-02] MEDS: WELLBUTRIN PO SCH (09:01)
[2023-02-02] MEDS: LEXAPRO PO SCH (09:01)
[2023-02-02] MEDS: FLOMAX PO SCH (09:02)
[2023-02-02] MEDS: ZYLOPRIM PO SCH (09:02)
[2023-02-02] MEDS: COREG PO SCH (09:02)
[2023-02-02] MEDS: LASIX TAB PO SCH (09:02)
[2023-02-02] MEDS: ALDACTONE PO SCH (09:02)
[2023-02-02] MEDS: ELIQUIS PO SCH ×2 (09:02→20:34)
[2023-02-02] MEDS: ROCEPHIN 1 GM/50 ML D5W 1 GM/50 ML BAG IV SCH (09:09)
[2023-02-02] MEDS: LASIX IVP SCH ×2 (10:36→17:29)
--- NOTE | 2023-02-02 11:13 | PCM ---
Date of Service Date Seen by Provider: 02/02/23 Time Seen by Provider: 08:45 Admit Day/Time Admission Date: 02/01/23 Admission Time: 16:06 Reason for Admission Chief Complaint: COPD EXACERBATION Hospital Provider Hospital Provider: JOHNNIE OREILLY, [facility] [place] Primary Care Physician Primary Care Physician: MACKENZIE RAMIREZ MD History of Present Illness History of Present Illness: 87 yo male presented to the ER with SOB. Has pmh of COPD and requires 3L via NC at all times. States he has been SOB and not feeling well over the last couple days. Granddaughter reports he has been retaining fluid in his feet and ankles. Patient states he has not been able to get up without assistance in multiple weeks. Denies fever, chills, cough, chest pain, N/V/D. Case Discussed With Case Discussed With: Patient's case was discussed with the ER Physicians, Dr. Pennington [facility] Medical History Encounter for Medicare annual wellness exam Z00.00 - Encounter for general adult medical examination without abnormal findings (ICD-10) Pneumonia J18.9 - Pneumonia, unspecified organism (ICD-10) Pneumonitis J18.9 - Pneumonia, unspecified organism (ICD-10) Wound of right leg resolved S81.801A - Unspecified open wound, right lower leg, initial encounter (ICD- 10) CAP (community acquired pneumonia) J18.9 - Pneumonia, unspecified organism (ICD-10) Acute hypokalemia E87.6 - Hypokalemia (ICD-10) Acute exacerbation of chronic bronchitis J20.9 - Acute bronchitis, unspecified (ICD-10) J42 - Unspecified chronic bronchitis (ICD-10) Cellulitis Right lower extremity; April 2021 L03.90 - Cellulitis, unspecified (ICD-10) B12 deficiency E53.8 - Deficiency of other specified B group vitamins (ICD-10) Hypothyroidism E03.9 - Hypothyroidism, unspecified (ICD-10) CHF (congestive heart failure) I50.9 - HEART FAILURE, UNSPECIFIED (ICD-10) Essential (primary) hypertension I10 - ESSENTIAL (PRIMARY) HYPERTENSION (ICD-10) COPD (chronic obstructive pulmonary disease) J44.9 - CHRONIC OBSTRUCTIVE PULMONARY DISEASE, UNSPECIFIED (ICD-10) CKD (chronic kidney disease) N18.9 - CHRONIC KIDNEY DISEASE, UNSPECIFIED (ICD-10) BPH (benign prostatic hyperplasia) N40.0 - BENIGN PROSTATIC HYPERPLASIA WITHOUT LOWER URINRY TRACT SYMP (ICD- 10) Skin cancer C44.90 - UNSPECIFIED MALIGNANT NEOPLASM OF SKIN, UNSPECIFIED (ICD-10) Dyslipidemia E78.4 - OTHER HYPERLIPIDEMIA * DO NOT USE * (ICD-10) Diabetes mellitus type 2 in obese E11.9 - TYPE 2 DIABETES MELLITUS WITHOUT COMPLICATIONS (ICD-10) COR (chronic cor pulmonale) I27.81 - COR PULMONALE (CHRONIC) (ICD-10) Acute pneumonitis J18.9 - PNEUMONIA, UNSPECIFIED ORGANISM (ICD-10) Family History GRANDDAUGHTER No problems noted. FATHER Heart disease BROTHER Heart disease Other No known health problems Social History Smoking and tobacco status: Former smoker Quit status: has quit before Alcohol intake: former Substance use type: does not use Special aidan needs: No Agree to transfusion: Yes Adopted: No Caregiver/support person: No Foster care: No Household members: none Housing: house Lives independently: Yes Daycare: no daycare Number of children: 0 service: Yes shelter: No Current occupational status: retired Pets and animals: Yes History of recent travel: No Do you think of yourself as: straight/heterosexual Current gender identity: male Seatbelt use: always Drives intoxicated or rides with intoxicated dray driver: No Water heater temperature set < 120 degrees: Yes Working smoke detector in home: Yes Fire extinguisher in home: Yes Carbon monoxide detector in home: Yes Firearms in home: Yes Allergies Allergies Allergy/AdvReac Type Severity Reaction Status Date / Time No Known Allergies Allergy Verified 02/01/23 14:59 Current Medications Home Medications escitalopram oxalate 20 mg tablet (Lexapro) 20 mg PO DAILY #30 tabs 05/23/21 [Rx Confirmed 02/01/23 Last Taken 08/26/22 07:00] carvedilol 3.125 mg tablet See Rx Instructions .Route .COMPLEX #90 tabs 06/02/22 [Rx Confirmed 02/01/23 Last Taken 08/26/22 07:00] omeprazole 40 mg capsule,delayed release See Rx Instructions .Route .COMPLEX #90 caps 06/02/22 [Rx Confirmed 02/01/23 Last Taken 08/26/22 07:00] metformin 500 mg tablet See Rx Instructions .Route .COMPLEX #90 tabs 08/08/22 [Rx Confirmed 02/01/23 Last Taken 08/26/22 07:00] tamsulosin 0.4 mg capsule See Rx Instructions .Route .COMPLEX #90 caps 08/08/22 [Rx Confirmed 02/01/23 Last Taken Unknown] budesonide 1 mg/2 mL suspension for nebulization See Rx Instructions .Route .COMPLEX #60 mL 08/19/22 [Rx Confirmed 02/01/23 Last Taken 11/12/22] ipratropium 0.5 mg-albuterol 3 mg (2.5 mg base)/3 mL nebulization soln See Rx Instructions .Route .COMPLEX #360 mL 08/19/22 [Rx Confirmed 02/01/23 Last Taken 11/12/22] furosemide 40 mg tablet See Rx Instructions .Route .COMPLEX #90 tabs 10/29/22 [Rx Confirmed 02/01/23 Last Taken Unknown] levothyroxine 100 mcg tablet See Rx Instructions .Route .COMPLEX #90 tabs 10/29/22 [Rx Confirmed 02/01/23 Last Taken Unknown] lorazepam 1 mg tablet 1 mg PO QHS #90 tabs 10/29/22 [Rx Confirmed 02/01/23 Last Taken Unknown] pravastatin 40 mg tablet See Rx Instructions .Route .COMPLEX #90 tabs 10/29/22 [Rx Confirmed 02/01/23 Last Taken Unknown] prednisone 5 mg tablet See Rx Instructions .Route .COMPLEX #90 tabs 10/29/22 [Rx Confirmed 02/01/23 Last Taken Unknown] spironolactone 25 mg tablet See Rx Instructions .Route .COMPLEX #90 tabs 10/29/22 [Rx Confirmed 02/01/23 Last Taken Unknown] tramadol 50 mg tablet 50 mg PO BID PRN pain #60 tabs 11/05/22 [Rx Confirmed 02/01/23 Last Taken Unknown] bupropion HCl 75 mg tablet See Rx Instructions .Route .COMPLEX #30 tabs 12/01/22 [Rx Confirmed 02/01/23 Last Taken Unknown] allopurinol 100 mg tablet See Rx Instructions .Route .COMPLEX #180 tabs 12/29/22 [Rx Confirmed 02/01/23 Last Taken Unknown] apixaban 5 mg tablet (Eliquis) See Rx Instructions .Route .COMPLEX #60 tabs 12/29/22 [Rx Confirmed 02/01/23 Last Taken Unknown] mupirocin 2 % topical ointment 1 applic topical TID PRN decubitus #22 grams 12/31/22 [Rx Confirmed 02/01/23 Last Taken Unknown] Home Acetaminophen (Acetaminophen 325 Mg Tablet) 650 mg PO Q4H PRN PRN Reason: Mild Pain Albuterol/Ipratropium (Ipratropium/Albuterol Vial.Neb) 3 ml NEB RTQ6H PRN PRN Reason: wheezing Allopurinol (Allopurinol 100 Mg Tablet) 200 mg PO DAILY [facility] Last Admin: 02/03/23 08:31 Dose: 200 mg Apixaban (Apixaban 5 Mg Tab) 5 mg PO BID [facility] Last Admin: 02/03/23 08:32 Dose: 5 mg Bupropion HCl (Bupropion Hcl 75 Mg Tablet) 75 mg PO DAILY [facility] Last Admin: 02/03/23 08:31 Dose: 75 mg Carvedilol (Carvedilol 3.125 Mg Tablet) 3.125 mg PO DAILYWM2 [facility] Last Admin: 02/03/23 08:32 Dose: 3.125 mg Escitalopram Oxalate (Escitalopram Oxalate 10 Mg Tablet) 20 mg PO DAILY [facility] Last Admin: 02/03/23 08:31 Dose: 20 mg Furosemide (Furosemide 40 Mg Tablet) 40 mg PO DAILY [facility] Last Admin: 02/02/23 09:02 Dose: 40 mg Furosemide (Furosemide Inj 40 Mg/4 Ml Vial) 40 mg IVP BIDAC2 [facility] Last Admin: 02/03/23 05:05 Dose: 40 mg CEFTRIAXONE/D5W 1 GM PREMIX (Rocephin 1 Gm/50 Ml D5w) 1 gm in 50 mls @ 100 mls/hr IV DAILY [facility] Stop: 02/05/23 08:59 Last Admin: 02/03/23 08:31 Dose: 100 mls/hr Insulin Human Regular (Insulin Regular, Human 100 Unit/Ml (3ml) Vial) 0 unit SUBCUT PRN PRN; Protocol PRN Reason: Hyperglycemia Last Admin: 02/02/23 20:45 Dose: 10 unit Levothyroxine Sodium (Levothyroxine Sodium 100 Mcg Tablet) 100 mcg PO QDAC2 [facility] Last Admin: 02/03/23 05:00 Dose: 100 mcg Lorazepam (Lorazepam 1 Mg Tablet) 1 mg PO BEDTIME [facility] Last Admin: 02/02/23 20:33 Dose: 1 mg Methylprednisolone Sodium Succinate (Methylprednisolone Sod Succ/Pf 40 Mg/Ml Vial) 40 mg IVP Q8H [facility] Last Admin: 02/03/23 08:31 Dose: 40 mg Nystatin (Nystatin 15 Gm Powder) 1 applic TP BID [facility] Last Admin: 02/03/23 08:32 Dose: 1 applic Omeprazole (Omeprazole 20 Mg Capsule.Dr) 20 mg PO QDAC2 [facility] Last Admin: 02/03/23 08:49 Dose: 20 mg Pravastatin Sodium (Pravastatin Sodium 40 Mg Tablet) 40 mg PO BEDTIME [facility] Last Admin: 02/02/23 20:33 Dose: 40 mg Sodium Chloride (0.9% Sodium Chloride 10 Ml Disp.Syrin) 1 syr IVF Q8HR [facility] Last Admin: 02/03/23 05:05 Dose: 1 syr Spironolactone (Spironolactone 25 Mg Tablet) 25 mg PO DAILY [facility] Last Admin: 02/03/23 08:32 Dose: 25 mg Tamsulosin HCl (Tamsulosin Hcl 0.4 Mg Cap.Er.24h) 0.4 mg PO DAILY [facility] Last Admin: 02/03/23 08:32 Dose: 0.4 mg Tramadol HCl (Tramadol Hcl 50 Mg Tablet) 50 mg PO BID PRN PRN Reason: MODERATE PAIN Discontinued Medications Albuterol/Ipratropium (Ipratropium/Albuterol Vial.Neb) 3 ml NEB ONCE ONE Stop: 02/01/23 14:46 Last Admin: 02/01/23 15:13 Dose: 3 ml CEFTRIAXONE/D5W 1 GM PREMIX (Rocephin 1 Gm/50 Ml D5w) 1 gm in 50 mls @ 100 mls/hr IV ONCE ONE Stop: 02/01/23 15:20 Last Admin: 02/01/23 15:25 Dose: 100 mls/hr Methylprednisolone Sodium Succinate (Methylprednisolone Sod Succ/Pf 125 Mg/2 Ml Vial) 125 mg IVP ONCE ONE Stop: 02/01/23 14:52 Last Admin: 02/01/23 15:04 Dose: 125 mg Omeprazole (Omeprazole 20 Mg Capsule.Dr) 20 mg PO DAILY [facility] Last Admin: 02/02/23 09:01 Dose: 20 mg Review of Systems Constitutional: Reports Fatigue and Weakness Head: Reports Normocephalic Eyes: Reports No symptoms Ears: Reports No symptoms Nose: Reports No symptoms Mouth: Reports No symptoms Throat: Reports No symptoms Cardiovascular: Reports No symptoms Respiratory: Reports Shortness of air Gastrointestinal: Reports No symptoms Genitourinary: Reports No Symptoms Musculoskeletal: Reports No symptoms Endocrine: Reports No symptoms Hematology: Reports No symptoms Immunology: Reports No symptoms Neurological: Reports Weakness and Problems with walking Psychiatric: Reports No symptoms Physical examination Most Recent Vital Signs: Most Recent Vital Signs Temperature 96.8 F L 02/02/23 10:00 Temperature Source Temporal Artery Scan 02/02/23 10:00 Temperature Source Infrared 02/01/23 14:44 Pulse Rate 90 02/02/23 10:00 Respiratory Rate 36 H 02/02/23 10:00 Blood Pressure 167/92 H 02/02/23 10:00 Blood Pressure Mean 117 02/02/23 10:00 Blood Pressure Left Arm 133/79 02/01/23 16:36 Blood Pressure Location Right Arm 02/02/23 10:00 Blood Pressure Position Supine 02/02/23 05:08 O2 Sat by Pulse Oximetry 91 L 02/02/23 10:00 Oxygen Delivery Method Nasal Cannula 02/02/23 10:00 Oxygen Flow Rate 4 02/02/23 10:00 Height 6 ft 02/01/23 16:36 Weight 222 lb 6 oz 02/02/23 05:08 Telemetry Type Remote Telemetry 02/02/23 07:00 Telemetry Monitoring Continues 02/02/23 07:00 Irregular Telemetry Rate (Approximate) 80-90 BPM 02/01/23 16:56 Telemetry Heart Rate 91 02/02/23 07:00 Telemetry SPO2 93 02/02/23 07:00 EKG [place] Interval 0.18 02/02/23 07:00 EKG QRS Interval 0.06 02/02/23 07:00 Telemetry Strip Reading SA with PVC and PAC 02/02/23 07:00 Appearance: Positive No Apparent Distress, Alert and Oriented x3 and Ill- Appearing Skin: Positive Warm HEENT: Positive Normocephalic Neck: Positive Supple and Midline Trachea Chest/Lungs: Positive Symmetrical With Equal Breath Sounds and Other (crackles throughout lung rodrigues) Heart: Positive RRR and Pulses Normal GI/: Positive Soft, Nontender, Bowel Sounds Normal and No Distention Musculoskeletal: Positive Not Examined Extremities: Positive Edema (+4 pitting edema bilateral), Intact Peripheral Pulses and Stable Joints Without Laxity Neurological: Positive Sensation Intact, Motor intact, Reflexes Intact, Alert, Oriented and Muscle Strength 5/5 in Upper and Lower Extremities Bilaterally Psychiatric: Positive Oriented x4 Labs This Visit Labs This Visit: Labs This Visit 02/01/23 02/01/23 02/01/23 14:50 15:13 15:15 WBC 8.28 RBC 4.08 L Hgb 11.5 L Hct 38.7 L MCV 94.9 H MCH 28.2 MCHC 29.7 L RDW Coeff of Leonardo 16.0 H Plt Count 303 Immature Gran % (Auto) 0.4 Neut % (Auto) 77.1 H Lymph % (Auto) 9.4 L [place] % (Auto) 12.7 H Eos % (Auto) 0.2 Baso % (Auto) 0.2 Neut # (Auto) 6.4 Lymph # (Auto) 0.8 [place] # (Auto) 1.1 Eos # (Auto) 0.0 Baso # (Auto) 0.0 Immature Gran # (Auto) 0.0 PT 11.8 H INR 1.14 Puncture Site Rrad Base Excess 15.6 H O2 Saturation 87.5 L ABG pH 7.47 H ABG pCO2 54.0 H ABG pO2 50.0 L* ABG HCO3 39.3 H ABG Total CO2 41.0 H Alfonzo Test Pos Hemoglobin 0.9 Oxyhemoglobin 85.6 L Carboxyhemoglobin 2.1 H Total Hemoglobin 12.2 FiO2 % 21.0 Sodium 135.4 Potassium 3.91 Chloride 90.1 L Carbon Dioxide 39.2 H Anion Gap 10.01 BUN 27.6 H Creatinine 1.00 Estimated GFR (MDRD) 71.00 BUN/Creatinine Ratio 27.60 Glucose 147.4 H Lactic Acid 2.13 H Calcium 8.39 L Total Bilirubin 1.44 H AST 25.5 ALT 15.7 Alkaline Phosphatase 71.5 Troponin I < 0.012 NT-Pro-B Natriuret Pep 393 H Total Protein 7.76 Albumin 3.84 Globulin 3.92 Albumin/Globulin Ratio 0.97 Influ A Molecular Assay Negative by naat Influ B Molecular Assay Negative by naat RSV Antigen Negative by naat SARS CoV-2 RNA Rapid BAL Negative 02/02/23 05:22 WBC 6.75 RBC 3.79 L Hgb 10.7 L Hct 36.3 L MCV 95.8 H MCH 28.2 MCHC 29.5 L RDW Coeff of Leonardo 15.9 H Plt Count 250 Immature Gran % (Auto) 0.4 Neut % (Auto) 91.2 H Lymph % (Auto) 6.8 L [place] % (Auto) 1.5 Eos % (Auto) 0.0 Baso % (Auto) 0.1 Neut # (Auto) 6.2 Lymph # (Auto) 0.5 L [place] # (Auto) 0.1 L Eos # (Auto) 0.0 Baso # (Auto) 0.0 Immature Gran # (Auto) 0.0 PT INR Puncture Site Base Excess O2 Saturation ABG pH ABG pCO2 ABG pO2 ABG HCO3 ABG Total CO2 Alfonzo Test Hemoglobin Oxyhemoglobin Carboxyhemoglobin Total Hemoglobin FiO2 % Sodium 133.8 L Potassium 3.71 Chloride 91.3 L Carbon Dioxide > 40.0 H* Anion Gap 6.21015 BUN 26.2 H Creatinine 0.84 Estimated GFR (MDRD) 87.00 BUN/Creatinine Ratio 31.19 Glucose 170.7 H Lactic Acid Calcium 8.26 L Total Bilirubin 0.63 AST 26.1 ALT 14.3 Alkaline Phosphatase 63.7 Troponin I NT-Pro-B Natriuret Pep Total Protein 7.16 Albumin 3.50 Globulin 3.66 Albumin/Globulin Ratio 0.95 Influ A Molecular Assay Influ B Molecular Assay RSV Antigen SARS CoV-2 RNA Rapid BAL Imaging Imaging: EXAM: ONE-VIEW CHEST Comparison 08/26/2022. FINDINGS: The heart is stable size. Lungs are clear. The pulmonary vasculature appears normal. The osseous structures are normal. IMPRESSION: No active cardiopulmonary disease. Review Statement Review Statement: I have independently reviewed and interpreted the labs/EKGs/imaging that were ordered by the ER provider. I have reviewed all outside records that are available currently in our EMR including imaging/notes/labs from previous visits. Plan Plan: 1. CHFpEF exacerbation - last echo in 06/22 showed EF of 60%, 4+ pitting edema with SOB and weight gain, lasix 40 mg BID IVP, daily weight, I&O 2. COPD - chronic, on baseline 3L, steroids, rocephin, nebs as prescribed 3. DM Type 2 - hold oral medications, diabetic diet, accuchecks qid with ssi 4. Hypertension - chronic, stable, continue home medications 5. CKD - appears at baseline, monitor bmp 6. Weakness - PT/OT, concern for patient going home with minimal assistance, no home health, will discuss dispo plans with family DVT Prophylaxis: Eliquis Time Spent: Greater than 80 minutes spent with patient, 50% of the time spent with this patient was devoted to counseling and coordination of care. [facility]annin minutes spent discussing advance care planning. Disposition: Admit to: Med/surg Inpatient DNR Discussed Plan of Care with Dr. Laura Ramirez. Medications Medication Orders: Medications Ordered Category Date Time Status 0.9 % Sodium Chloride [Saline Flush] Meds 02/01/23 21:00 Active 1 syr IVF Q8HR Acetaminophen [Tylenol] Meds 02/01/23 17:21 Active 650 mg PO Q4H PRN Allopurinol [Zyloprim] Meds 02/02/23 09:00 Active 200 mg PO DAILY Apixaban [Eliquis] Meds 02/01/23 18:00 Active 5 mg PO BID Bupropion HCl [Wellbutrin] Meds 02/02/23 09:00 Active 75 mg PO DAILY Carvedilol [Coreg] Meds 02/02/23 07:30 Active 3.125 mg PO DAILYWM2 Ceftriaxone/D5w 1 gm Premix [Rocephin 1 gm/50 ml D5w] Meds 02/02/23 09:00 Active 1 gm in 50 ml IV DAILY Escitalopram Oxalate [Lexapro] Meds 02/02/23 09:00 Active 20 mg PO DAILY Furosemide [Lasix Tab] Meds 02/02/23 09:00 Hold 40 mg PO DAILY Furosemide [Lasix] Meds 02/02/23 09:30 Active 40 mg IVP BIDAC2 Insulin Regular, Human [Humulin R] Meds 02/01/23 17:22 Active See Protocol SUBCUT PRN PRN Ipratropium/Albuterol Neb [Duoneb] Meds 02/01/23 17:36 Active 3 ml NEB RTQ6H PRN Levothyroxine Sodium [Synthroid] Meds 02/01/23 06:00 Active 100 mcg PO QDAC2 Lorazepam [Ativan] Meds 02/01/23 21:00 Active 1 mg PO BEDTIME Methylprednisolone Sod Succ/Pf [Solu-Medrol 40 mg] Meds 02/01/23 00:00 Active 40 mg IVP Q8H Nystatin [Nystop Powder] Meds 02/01/23 21:00 Active 1 applic TP BID Omeprazole [Prilosec] Meds 02/02/23 09:00 Active 20 mg PO DAILY Pravastatin Sodium [Pravachol] Meds 02/01/23 21:00 Active 40 mg PO BEDTIME Spironolactone [Aldactone] Meds 02/02/23 09:00 Active 25 mg PO DAILY Tamsulosin HCl [Flomax] Meds 02/02/23 09:00 Active 0.4 mg PO DAILY Tramadol HCl [Ultram] Meds 02/01/23 17:32 Active 50 mg PO BID PRN
[2023-02-02 11:49] LABS: BILIRUBIN,URINE Negative (NEGATIVE); CLARITY,URINE Clear (CLEAR); COLOR,URINE Yellow (YELLOW); GLUCOSE, URINE (UA) Negative (NEGATIVE); KETONES,URINE Negative (NEGATIVE); LEUKOCYTE ESTERASE ,URINE Negative (NEGATIVE); NITRITE,URINE Negative (NEGATIVE); PROTEIN,URINE Negative (NEGATIVE); URINE, BLOOD Negative (NEGATIVE); UROBILINOGEN,URINE 0.2 (0.2)
[2023-02-02] MEDS: ATIVAN PO SCH (20:33)
[2023-02-02] MEDS: PRAVACHOL PO SCH (20:33)
[2023-02-03] MEDS: SYNTHROID PO SCH (05:00)
[2023-02-03] MEDS: LASIX IVP SCH ×2 (05:05→17:16)
[2023-02-03 05:24] LABS: BASOPHILS % (AUTO) 0.1 % (0.0-3.0); HEMATOCRIT 40.1 % (42.0-52.0); HEMOGLOBIN 11.6 g/dl (14.0-18.0); IMMATURE GRANULOCYTE # (AUTO) 0.1 (0.0-1.0); IMMATURE GRANULOCYTE % (AUTO) 0.7 % (0.0-5.0); LYMPHOCYTES # (AUTO) 0.6 K/uL (0.60-3.4); LYMPHOCYTES % (AUTO) 4.9 (10.0-50.0); MEAN CORPUSCULAR HEMOGLOBIN 28.1 pg (27.0-31.0); MEAN CORPUSCULAR HGB CONC 28.9 (31.8-35.4); MEAN CORPUSCULAR VOLUME 97.1 fl (80.0-94.0); MONOCYTES # (AUTO) 0.6 K/uL (0.4-2.0); MONOCYTES % (AUTO) 4.9 (0-10); NEUTROPHILS # (AUTO) 10.6 K/ul (2.0-6.9); NEUTROPHILS % (AUTO) 89.4 % (42.2-75.2); PLATELET COUNT 331 10^3/uL (140-440); RDW COEFFICIENT OF VARIATION 15.7 % (11.6-14.8); RED BLOOD COUNT 4.13 10^6/ul (4.70-6.10); WHITE BLOOD COUNT 11.82 K/ul (4.2-10.2)
[2023-02-03 05:39] LABS: ALANINE AMINOTRANSFERASE 16.4 U/L (0-50); ALBUMIN 3.81 g/dL (3.5-5.0); ALKALINE PHOSPHATASE 69.8 U/L (56-119); ASPARTATE AMINO TRANSFERASE 28.7 U/L (17-59); BILIRUBIN,TOTAL 0.47 mg/dL (0.2-1.3); BLOOD UREA NITROGEN 31.8 mg/dL (9-20); CALCIUM 8.69 mg/dL (8.4-10.2); CHLORIDE 89.3 mmol/L (98-107); CREATININE 1.05 mg/dL (0.60-1.10); POTASSIUM 3.79 mmol/L (3.5-5.1); SODIUM 138.7 mmol/L (134.5-145); TOTAL PROTEIN 7.73 g/dL (6.3-8.2)
[2023-02-03 05:45] LABS: CARBON DIOXIDE 39.7 mmol/L (22-30.0)
[2023-02-03] MEDS: ROCEPHIN 1 GM/50 ML D5W 1 GM/50 ML BAG IV SCH (08:31)
[2023-02-03] MEDS: LEXAPRO PO SCH (08:31)
[2023-02-03] MEDS: WELLBUTRIN PO SCH (08:31)
[2023-02-03] MEDS: SOLU-MEDROL 40 MG IVP SCH ×2 (08:31→17:16)
[2023-02-03] MEDS: ZYLOPRIM PO SCH (08:31)
[2023-02-03] MEDS: COREG PO SCH (08:32)
[2023-02-03] MEDS: ALDACTONE PO SCH (08:32)
[2023-02-03] MEDS: FLOMAX PO SCH (08:32)
[2023-02-03] MEDS: ELIQUIS PO SCH ×2 (08:32→20:48)
[2023-02-03] MEDS: NYSTOP POWDER TP SCH ×2 (08:32→20:56)
[2023-02-03] MEDS: PRILOSEC PO SCH (08:49)
--- NOTE | 2023-02-03 09:46 | PCM.PROG ---
Date/Time Seen Date Seen by Provider: 02/03/23 Time Seen by Provider: 08:30 Provider Provider: [facility]OHNN[facility]ILL[facility] Chief Complaint Chief Complaint: COPD EXACERBATION Subjective Subjective: Nursing staff reports patient has only been oriented to person since yesterday afternoon. Has been unable to use the urinal on his own. Has been trying to use his spoon for different things. Concerns with patient returning home with minimal assistance from family. Oriented to person and time at this moment. Objective Appearance: Positive No Apparent Distress, Ill-Appearing and Obese Chest/Lungs: Positive Symmetrical With Equal Breath Sounds and Rhonci (bilateral bases) Heart: Positive RRR and Pulses Normal GI/: Positive Soft, Nontender and Bowel Sounds Normal Musculoskeletal: Positive Not Examined Neurological: Positive Sensation Intact, Motor intact, Alert and Oriented (to person and time) Additional Findings: + 4 pitting edema bilateral lower extremities, yeast to bilateral skin folds under breasts Vital Signs Vital Signs: Vital Signs: Last 24 Hours 02/02/23 10:00 02/02/23 10:00 02/02/23 13:00 Temperature 96.8 F L Temperature Source Temporal Artery Scan Pulse Rate 90 Pulse Rate [Apical] Respiratory Rate 36 H Blood Pressure 167/92 H Blood Pressure Mean 117 Blood Pressure Location Right Arm Blood Pressure Position O2 Sat by Pulse Oximetry 91 L 93 L Oxygen Delivery Method Nasal Cannula Nasal Cannula Oxygen Flow Rate 4 4 Weight Telemetry Type Remote Telemetry Telemetry Monitoring Continues Irregular Telemetry Rate (Approximate) Telemetry Heart Rate 89 Telemetry SPO2 89 L EKG MT Interval EKG QRS Interval 0.08 Telemetry Strip Reading Afib 02/02/23 14:00 02/02/23 14:00 02/02/23 18:00 Temperature 97.8 F 97.4 F L Temperature Source Temporal Artery Scan Temporal Artery Scan Pulse Rate 85 82 Pulse Rate [Apical] Respiratory Rate 124 H 24 H Blood Pressure 122/67 Blood Pressure Mean 85 Blood Pressure Location Right Arm Left Arm Blood Pressure Position Sitting O2 Sat by Pulse Oximetry 87 L 94 L Oxygen Delivery Method Nasal Cannula Nasal Cannula Nasal Cannula Oxygen Flow Rate 4 4 4 Weight Telemetry Type Telemetry Monitoring Irregular Telemetry Rate (Approximate) Telemetry Heart Rate Telemetry SPO2 EKG MT Interval EKG QRS Interval Telemetry Strip Reading 02/02/23 19:00 02/02/23 19:20 02/02/23 20:00 Temperature Temperature Source Pulse Rate Pulse Rate [Apical] Respiratory Rate Blood Pressure Blood Pressure Mean Blood Pressure Location Blood Pressure Position O2 Sat by Pulse Oximetry 95 Oxygen Delivery Method Nasal Cannula Nasal Cannula Oxygen Flow Rate 4 4 Weight Telemetry Type Remote Telemetry Telemetry Monitoring Continues Irregular Telemetry Rate (Approximate) 80-90 BPM Telemetry Heart Rate Telemetry SPO2 EKG MT Interval EKG QRS Interval 0.07 Telemetry Strip Reading A-FIB 02/02/23 21:03 02/03/23 01:00 02/03/23 02:00 Temperature 98.8 F Temperature Source Temporal Artery Scan Pulse Rate 96 68 Pulse Rate [Apical] Respiratory Rate 20 20 Blood Pressure 107/61 Blood Pressure Mean 76 Blood Pressure Location Left Arm Blood Pressure Position Sitting O2 Sat by Pulse Oximetry 95 98 Oxygen Delivery Method Nasal Cannula Nasal Cannula Oxygen Flow Rate 2 4 Weight Telemetry Type Remote Telemetry Telemetry Monitoring Continues Irregular Telemetry Rate (Approximate) Telemetry Heart Rate 71 Telemetry SPO2 97 EKG MT Interval 0.19 EKG QRS Interval 0.07 Telemetry Strip Reading SR 02/03/23 04:53 02/03/23 05:03 02/03/23 05:08 Temperature 98.3 F Temperature Source Temporal Artery Scan Pulse Rate 69 Pulse Rate [Apical] Respiratory Rate 20 Blood Pressure 116/70 Blood Pressure Mean 85 Blood Pressure Location Left Arm Blood Pressure Position Supine O2 Sat by Pulse Oximetry 98 Oxygen Delivery Method Nasal Cannula Nasal Cannula Oxygen Flow Rate 4 2 Weight 218 lb 3 oz Telemetry Type Telemetry Monitoring Irregular Telemetry Rate (Approximate) Telemetry Heart Rate Telemetry SPO2 EKG MT Interval EKG QRS Interval Telemetry Strip Reading 02/03/23 07:00 02/03/23 08:00 Temperature Temperature Source Pulse Rate Pulse Rate [Apical] 70 Respiratory Rate 26 H Blood Pressure Blood Pressure Mean Blood Pressure Location Blood Pressure Position O2 Sat by Pulse Oximetry Oxygen Delivery Method Nasal Cannula Oxygen Flow Rate 4 Weight Telemetry Type Remote Telemetry Telemetry Monitoring Continues Irregular Telemetry Rate (Approximate) Telemetry Heart Rate 72 Telemetry SPO2 95 EKG MT Interval 0.16 EKG QRS Interval 0.08 Telemetry Strip Reading NSR Lab Results Lab Results: Lab Results: Last 24 Hours 02/03/23 02/02/23 05:04 11:39 WBC 11.82 H D RBC 4.13 L Hgb 11.6 L Hct 40.1 L MCV 97.1 H MCH 28.1 MCHC 28.9 L RDW Coeff of Leonardo 15.7 H Plt Count 331 D Immature Gran % (Auto) 0.7 Neut % (Auto) 89.4 H Lymph % (Auto) 4.9 L [place] % (Auto) 4.9 Eos % (Auto) 0.0 Baso % (Auto) 0.1 Neut # (Auto) 10.6 H Lymph # (Auto) 0.6 [place] # (Auto) 0.6 Eos # (Auto) 0.0 Baso # (Auto) 0.0 Immature Gran # (Auto) 0.1 Sodium 138.7 Potassium 3.79 Chloride 89.3 L Carbon Dioxide 39.7 H Anion Gap 13.49 BUN 31.8 H Creatinine 1.05 Estimated GFR (MDRD) 67.00 BUN/Creatinine Ratio 30.28 Glucose 149.0 H Calcium 8.69 Total Bilirubin 0.47 AST 28.7 ALT 16.4 Alkaline Phosphatase 69.8 Total Protein 7.73 Albumin 3.81 Globulin 3.92 Albumin/Globulin Ratio 0.97 Urine Color Yellow Urine Clarity Clear Urine pH 6.0 Ur Specific Dante 1.020 Urine Protein Negative Urine Glucose (UA) Negative Urine Ketones Negative Urine Blood Negative Urine Nitrite Negative Urine Bilirubin Negative Urine Urobilinogen 0.2 Ur Leukocyte Esterase Negative Additional Comments Additional Comments: I have independently reviewed and interpreted the labs/EKGs/imaging ordered during this hospital stay. I have reviewed outside records that are available in our EMR that pertain to medical stay including imaging/notes/labs from previous visits. Active Medications Active Medications: Medications Generic Name Dose Route Start Last Admin Trade Name Freq PRN Reason Stop Dose Admin Acetaminophen 650 mg 02/01/23 17:21 Acetaminophen 325 Mg Tablet PO Q4H PRN Mild Pain Albuterol/Ipratropium 3 ml 02/01/23 17:36 Ipratropium/Albuterol Vial.Neb NEB RTQ6H PRN wheezing Allopurinol 200 mg 02/02/23 09:00 02/03/23 08:31 Allopurinol 100 Mg Tablet PO 200 mg DAILY PATRICIA Administration Apixaban 5 mg 02/01/23 18:00 02/03/23 08:32 Apixaban 5 Mg Tab PO 5 mg BID PATRICIA Administration Bupropion HCl 75 mg 02/02/23 09:00 02/03/23 08:31 Bupropion Hcl 75 Mg Tablet PO 75 mg DAILY PATRICIA Administration Carvedilol 3.125 mg 02/02/23 07:30 02/03/23 08:32 Carvedilol 3.125 Mg Tablet PO 3.125 mg DAILYWM2 PATRICIA Administration Escitalopram Oxalate 20 mg 02/02/23 09:00 02/03/23 08:31 Escitalopram Oxalate 10 Mg Tablet PO 20 mg DAILY PATRICIA Administration Furosemide 40 mg 02/02/23 09:00 02/02/23 09:02 Furosemide 40 Mg Tablet PO 40 mg DAILY PATRICIA Administration Furosemide 40 mg 02/02/23 09:30 02/03/23 05:05 Furosemide Inj 40 Mg/4 Ml Vial IVP 40 mg BIDAC2 PATRICIA Administration CEFTRIAXONE/D5W 1 GM PREMIX 1 gm in 50 mls @ 100 mls/hr 02/02/23 09:00 02/03/23 08:31 Rocephin 1 Gm/50 Ml D5w IV 02/05/23 08:59 100 mls/hr DAILY PATRICIA Administration Insulin Human Regular 0 unit 02/01/23 17:22 02/02/23 20:45 Insulin Regular, Human 100 Unit/Ml (3ml) Vial SUBCUT 10 unit PRN PRN Administration Hyperglycemia Protocol Levothyroxine Sodium 100 mcg 02/01/23 06:00 02/03/23 05:00 Levothyroxine Sodium 100 Mcg Tablet PO 100 mcg QDAC2 PATRICIA Administration Lorazepam 1 mg 02/01/23 21:00 02/02/23 20:33 Lorazepam 1 Mg Tablet PO 1 mg BEDTIME PATRICIA Administration Methylprednisolone Sodium Succinate 40 mg 02/01/23 00:00 02/03/23 08:31 Methylprednisolone Sod Succ/Pf 40 Mg/Ml Vial IVP 40 mg Q8H PATRICIA Administration Nystatin 1 applic 02/01/23 21:00 02/03/23 08:32 Nystatin 15 Gm Powder TP 1 applic BID PATRICIA Administration Omeprazole 20 mg 02/03/23 09:00 02/03/23 08:49 Omeprazole 20 Mg Capsule.Dr PO 20 mg QDAC2 PATRICIA Administration Pravastatin Sodium 40 mg 02/01/23 21:00 02/02/23 20:33 Pravastatin Sodium 40 Mg Tablet PO 40 mg BEDTIME PATRICIA Administration Sodium Chloride 1 syr 02/01/23 21:00 02/03/23 05:05 0.9% Sodium Chloride 10 Ml Disp.Syrin IVF 1 syr Q8HR PATRICIA Administration Spironolactone 25 mg 02/02/23 09:00 02/03/23 08:32 Spironolactone 25 Mg Tablet PO 25 mg DAILY PATRICIA Administration Tamsulosin HCl 0.4 mg 02/02/23 09:00 02/03/23 08:32 Tamsulosin Hcl 0.4 Mg Cap.Er.24h PO 0.4 mg DAILY PATRICIA Administration Tramadol HCl 50 mg 02/01/23 17:32 Tramadol Hcl 50 Mg Tablet PO BID PRN MODERATE PAIN Plan Plan: 1. CHFpEF exacerbation - Improving, diuresed 3L total since yesterday; last echo in 06/22 showed EF of 60%, 4+ pitting edema with SOB and weight gain, lasix 40 mg BID IVP, daily weight, I&O 2. COPD - chronic, on baseline 3L, steroids, rocephin, nebs as prescribed 3. DM Type 2 - hold oral medications, diabetic diet, accuchecks qid with ssi 4. Hypertension - chronic, stable, continue home medications 5. CKD - appears at baseline, monitor bmp 6. Weakness - PT/OT, concern for patient going home with minimal assistance, no home health, will discuss dispo plans with family DVT Prophylaxis: Mary Review Statement Review Statement: I have personally discussed and reviewed the patient's visit/currently labs/imaging/decision making with Dr. Ramirez, my supervising attending. Greater that 50 minutes spent with patient, 50% of the time spent with this patient was devoted to counseling and coordination of care.
--- NOTE | 2023-02-03 10:16 | RS.PTINEVL ---
Subjective Patient information Date of Evaluation: 02/03/23 Date of Arrival on Unit: 02/01/23 Admitted From:: Home Diagnosis: acute exacerbation of CHF Usual Living Arrangement: Alone Living Arrangement Comments: lives alone, granddaughter is there several times during the day. Home Environment: House, Stairs (few) and Rail Medical History: Hypertension, COPD, CHF, Arthritis and Cancer (skin CA) Medical History Comments:: BPH, hypothyroidism, PE, CKD, gout, LATEX ALLERGY?: No Medications: see chart Level of function Prior to this admission, the patient could do the following:: Partially Dependent Ambulation Abilities prior to this admission: pt reports he wasn't walking at home much at all they were using a w/c to take him to bathroom. Current Level of Function: Partially Dependent Current Equipment Used at Home: oxygen, rwx, w/c Interventions Objective Patient Orientation: Person and Place Current Interventions: IV's, Oxygen (4 liters) and Telemetry Observation: pt with pitting edema BLE, escoriated area under L breast Range of Motion ROM Right Upper Extremity AROM: Slight limitation (limited shld flex) Left Upper Extremity AROM: Slight limitation (limited shld flex) Right Lower Extremity AROM: Slight limitation (decreased knee ext) Left Lower Extremity AROM: Slight limitation (decreased knee ext) Muscle Strength Muscle Strength Right Upper Extremity: Mild Weakness (shld flex 3-/5, elbow flex/ext 4/5 ) Left Upper Extremity: Mild Weakness (shld flex 3-/5, elbow flex/ext 4/5 ) Right Lower Extremity: Mild Weakness (hip flex 3+/5, knee flex/ext 4-/5, ankle DF/PF 4-/5) Left Lower Extremity: Mild Weakness (hip flex 3+/5, knee flex/ext 4-/5, ankle DF/PF 4-/5) Sensation Sensation Right Upper Extremity: Intact/Normal Left Upper Extremity: Intact/Normal Right Lower Extremity: Impaired Left Lower Extremity: Impaired Comments: n/t B LE Palpation Palpation Findings: Tenderness (BLE ) Balance Sitting Balance and Reactions Static Sitting Balance: Fair Dynamic Sitting Balance: Poor (poor+) Standing Balance and Reactions Static Standing Balance: Poor Dynamic Standing Balance: Poor Standing Equilibrium Reactions: Delayed Left and Delayed Right Standing Protective Reactions: Delayed Left and Delayed Right Functional Mobility Bed Mobility Rolling R/L: Min Assist Supine to Sit: Min Assist Sit to Supine: Min Assist Transfers Sit to Stand: Min Assist Stand to Sit: Min Assist Safety Awareness Safety Awareness: Poor BOBY INDEX SCORE: n/a Ambulation Ambulation Assistive Device Used: Rolling Walker Orthotic/Prosthetic Device: No Distance: 15ft w O2 4 liters Assistance needed with Ambulation: Min Assist and 1 person assist Gait Deviations: Wide Based gait, Step-to gait, Forward posture, Short stride and Deviates from path Ambulation Comments: Required assist with placement of rwx, significant forward head flexed posture Factors Affecting Ambulation: Decreased Balance, Breathing/O2 Saturation, Weakness, Decreased Coordination, Decreased ROM, Decreased Safety, Cognitive Status and Limited Endurance Treatment time Time with patient Length of Evaluation: 21 Total treatment time: 24 Patient Education Education Patient Education: Activity Modification and Education of Plan of Care Teaching Recipient: Patient Teaching Methods: Discussion Comments: attempted to discuss POC, pt confused this am. Assessment Assessment Problem List:: Decreased level of function, Requires training/education, Decreased safety/Risk of falls, Weakness and Cognitive status limits abilities Rehab Potential: Fair Further Therapy Indicated?: Yes Candidate for Swing Bed for Therapy Services?: Feel pt may not be a candidate for swing bed due to prior level of function Evaluation Complexity: HISTORY: Medium, EXAM OF BODY SYSTEMS: Medium, CLINICAL PRESENTATION: Medium and CLINICAL DECISION MAKING: Medium Patient's Goal(s): pt unable to express this date. Short Term Goals GOAL #1: pt demonstrate rolling in bed w bedrails CGA Goal to be met by: 02/05/23 GOAL #2: Transfer sup to/from sit CGA Goal to be met by: 02/05/23 GOAL #3: Transfer sit to/from stand CGA Goal to be met by: 02/05/23 GOAL #4: pt amb with rwx 25ft with min to CGA Goal to be met by: 02/05/23 GOAL #5: Improve BLE Strength 4 to 4+/5 Goal to be met by: 02/05/23 GOAL #6: . [employer] Goals GOAL #1: pt transfer sup to/from sit to/from stand SBA Goal to be met by: 02/07/23 GOAL #2: pt amb with rwx with O2 functional household distances CGA Goal to be met by: 02/07/23 GOAL #3: Ascend/descend 2-3 steps w HR minx 1 Goal to be met by: 02/07/23 Plan Plan of Care: Therapeutic EX and Therapeutic Activity Other:: gait training Frequency of Treatment: 1-2 X day, as tolerated Duration of Treatment: 5 days Treatment Diagnosis (ICD 10 Codes): Gait difficulty R 26.2 impaired balance R 26.81 weakness M62.,81 Has the Physician been added for Co-signature?: Yes
[2023-02-03] MEDS: HUMULIN R SUBCUT PRN ×3 (12:11→20:50)
[2023-02-03] MEDS: PRAVACHOL PO SCH (20:48)
[2023-02-03] MEDS: ATIVAN PO SCH (20:48)
[2023-02-04] MEDS: SOLU-MEDROL 40 MG IVP SCH ×3 (00:42→15:24)
[2023-02-04] MEDS: PRILOSEC PO SCH (05:08)
[2023-02-04] MEDS: SYNTHROID PO SCH (05:08)
[2023-02-04 05:41] LABS: BASOPHILS % (AUTO) 0.1 % (0.0-3.0); HEMATOCRIT 40.3 % (42.0-52.0); HEMOGLOBIN 11.3 g/dl (14.0-18.0); IMMATURE GRANULOCYTE # (AUTO) 0.1 (0.0-1.0); IMMATURE GRANULOCYTE % (AUTO) 0.6 % (0.0-5.0); LYMPHOCYTES # (AUTO) 0.7 K/uL (0.60-3.4); MEAN CORPUSCULAR HEMOGLOBIN 27.8 pg (27.0-31.0); MONOCYTES # (AUTO) 0.4 K/uL (0.4-2.0); MONOCYTES % (AUTO) 3.2 (0-10); NEUTROPHILS # (AUTO) 12.4 K/ul (2.0-6.9); NEUTROPHILS % (AUTO) 91.1 % (42.2-75.2); PLATELET COUNT 328 10^3/uL (140-440); RDW COEFFICIENT OF VARIATION 15.9 % (11.6-14.8); RED BLOOD COUNT 4.07 10^6/ul (4.70-6.10); WHITE BLOOD COUNT 13.59 K/ul (4.2-10.2)
[2023-02-04] MEDS: LASIX IVP SCH (05:44)
[2023-02-04 06:01] LABS: ALBUMIN 3.69 g/dL (3.5-5.0); ALKALINE PHOSPHATASE 64.3 U/L (56-119); ASPARTATE AMINO TRANSFERASE 28.7 U/L (17-59); BILIRUBIN,TOTAL 0.37 mg/dL (0.2-1.3); CALCIUM 8.08 mg/dL (8.4-10.2); CHLORIDE 88.2 mmol/L (98-107); CREATININE 1.14 mg/dL (0.60-1.10); GLUCOSE 183.1 mg/dL (74-106); POTASSIUM 3.76 mmol/L (3.5-5.1); SODIUM 138.1 mmol/L (134.5-145); TOTAL PROTEIN 7.39 g/dL (6.3-8.2)
[2023-02-04] MEDS: HUMULIN R SUBCUT PRN ×4 (06:01→20:55)
[2023-02-04 06:05] LABS: CARBON DIOXIDE > 40.0 mmol/L (22-30.0)
[2023-02-04] MEDS: ZYLOPRIM PO SCH (08:46)
[2023-02-04] MEDS: LASIX TAB PO SCH (08:46)
[2023-02-04] MEDS: LEXAPRO PO SCH (08:46)
[2023-02-04] MEDS: COREG PO SCH (08:47)
[2023-02-04] MEDS: WELLBUTRIN PO SCH (08:47)
[2023-02-04] MEDS: ALDACTONE PO SCH (08:47)
[2023-02-04] MEDS: ELIQUIS PO SCH ×2 (08:48→20:46)
[2023-02-04] MEDS: FLOMAX PO SCH (08:48)
[2023-02-04] MEDS: ROCEPHIN 1 GM/50 ML D5W 1 GM/50 ML BAG IV SCH (08:49)
[2023-02-04] MEDS: NYSTOP POWDER TP SCH ×2 (09:30→20:47)
--- NOTE | 2023-02-04 09:45 | PCM.PROG ---
Date/Time Seen Date Seen by Provider: 02/04/23 Time Seen by Provider: 08:30 Provider Provider: JOHNNIE OREILLY, [facility] Chief Complaint Chief Complaint: COPD EXACERBATION Subjective Subjective: Oriented to self. States he is in [place] today. Unable to voice any complaints. Spoke extensively with family yesterday regarding disposition. Plan to d/c to custodial. Objective Appearance: Positive No Apparent Distress and Ill-Appearing Chest/Lungs: Positive Symmetrical With Equal Breath Sounds, Clear to Auscultation Bilaterally and Good Air Movement all 4 Lung Hoffmann Heart: Positive RRR and Pulses Normal GI/: Positive Soft, Nontender, Bowel Sounds Normal and No Distention Musculoskeletal: Positive Not Examined Neurological: Positive Sensation Intact, Motor intact, Reflexes Intact, Alert and Disorinted Vital Signs Vital Signs: Vital Signs: Last 24 Hours 02/03/23 10:00 02/03/23 13:00 02/03/23 14:00 Temperature 97.3 F L Temperature Source Temporal Artery Scan Pulse Rate 82 Respiratory Rate 26 H Blood Pressure 117/63 Blood Pressure Mean 81 Blood Pressure Location Left Arm Blood Pressure Position O2 Sat by Pulse Oximetry 98 Oxygen Delivery Method Nasal Cannula Nasal Cannula Oxygen Flow Rate 4 2 Telemetry Type Remote Telemetry Telemetry Monitoring Continues Telemetry Heart Rate 87 Telemetry SPO2 EKG MT Interval EKG QRS Interval 0.05 L Telemetry Strip Reading AFIB 02/03/23 14:00 02/03/23 19:00 02/03/23 19:58 Temperature Temperature Source Pulse Rate Respiratory Rate Blood Pressure Blood Pressure Mean Blood Pressure Location Blood Pressure Position O2 Sat by Pulse Oximetry 97 95 Oxygen Delivery Method Nasal Cannula Nasal Cannula Oxygen Flow Rate 3 3 Telemetry Type Remote Telemetry Telemetry Monitoring Continues Telemetry Heart Rate 90 Telemetry SPO2 96 EKG MT Interval 0.14 EKG QRS Interval 0.08 Telemetry Strip Reading NSR 02/03/23 20:00 02/03/23 21:04 02/04/23 01:00 Temperature 97.9 F Temperature Source Temporal Artery Scan Pulse Rate 92 Respiratory Rate 25 H Blood Pressure 102/63 Blood Pressure Mean 76 Blood Pressure Location Left Arm Blood Pressure Position Supine O2 Sat by Pulse Oximetry 96 Oxygen Delivery Method Nasal Cannula Nasal Cannula Oxygen Flow Rate 3 3 Telemetry Type Remote Telemetry Telemetry Monitoring Continues Telemetry Heart Rate 79 Telemetry SPO2 96 EKG MT Interval 0.18 EKG QRS Interval 0.07 Telemetry Strip Reading SR W/ PAC 02/04/23 05:00 02/04/23 05:04 02/04/23 07:00 Temperature 98 F Temperature Source Temporal Artery Scan Pulse Rate 99 Respiratory Rate 24 H Blood Pressure 136/73 Blood Pressure Mean 94 Blood Pressure Location Left Arm Blood Pressure Position Sitting O2 Sat by Pulse Oximetry 97 100 Oxygen Delivery Method Nasal Cannula Nasal Cannula Oxygen Flow Rate 3 3 Telemetry Type Remote Telemetry Telemetry Monitoring Continues Telemetry Heart Rate 78 Telemetry SPO2 97 EKG MT Interval 0.17 EKG QRS Interval 0.10 Telemetry Strip Reading SR with PAC;'s Lab Results Lab Results: Lab Results: Last 24 Hours 02/04/23 05:14 WBC 13.59 H RBC 4.07 L Hgb 11.3 L Hct 40.3 L MCV 99.0 H MCH 27.8 MCHC 28.0 L RDW Coeff of Leonardo 15.9 H Plt Count 328 Immature Gran % (Auto) 0.6 Neut % (Auto) 91.1 H Lymph % (Auto) 5.0 L [place] % (Auto) 3.2 Eos % (Auto) 0.0 Baso % (Auto) 0.1 Neut # (Auto) 12.4 H Lymph # (Auto) 0.7 [place] # (Auto) 0.4 Eos # (Auto) 0.0 Baso # (Auto) 0.0 Immature Gran # (Auto) 0.1 Sodium 138.1 Potassium 3.76 Chloride 88.2 L Carbon Dioxide > 40.0 H* Anion Gap 13.75067 BUN 43.0 H Creatinine 1.14 H Estimated GFR (MDRD) 61.00 BUN/Creatinine Ratio 37.71 Glucose 183.1 H Calcium 8.08 L Total Bilirubin 0.37 AST 28.7 ALT 19.0 Alkaline Phosphatase 64.3 Total Protein 7.39 Albumin 3.69 Globulin 3.70 Albumin/Globulin Ratio 0.99 Additional Comments Additional Comments: I have independently reviewed and interpreted the labs/EKGs/imaging ordered during this hospital stay. I have reviewed outside records that are available in our EMR that pertain to medical stay including imaging/notes/labs from previous visits. Active Medications Active Medications: Medications Generic Name Dose Route Start Last Admin Trade Name Freq PRN Reason Stop Dose Admin Acetaminophen 650 mg 02/01/23 17:21 Acetaminophen 325 Mg Tablet PO Q4H PRN Mild Pain Albuterol/Ipratropium 3 ml 02/01/23 17:36 Ipratropium/Albuterol Vial.Neb NEB RTQ6H PRN wheezing Allopurinol 200 mg 02/02/23 09:00 02/04/23 08:46 Allopurinol 100 Mg Tablet PO 200 mg DAILY PATRICIA Administration Apixaban 5 mg 02/01/23 18:00 02/04/23 08:48 Apixaban 5 Mg Tab PO 5 mg BID PATRICIA Administration Bupropion HCl 75 mg 02/02/23 09:00 02/04/23 08:47 Bupropion Hcl 75 Mg Tablet PO 75 mg DAILY PATRICIA Administration Carvedilol 3.125 mg 02/02/23 07:30 02/04/23 08:47 Carvedilol 3.125 Mg Tablet PO 3.125 mg DAILYWM2 PATRICIA Administration Escitalopram Oxalate 20 mg 02/02/23 09:00 02/04/23 08:46 Escitalopram Oxalate 10 Mg Tablet PO 20 mg DAILY PATRICIA Administration Furosemide 40 mg 02/02/23 09:00 02/04/23 08:46 Furosemide 40 Mg Tablet PO 40 mg DAILY PATRICIA Administration CEFTRIAXONE/D5W 1 GM PREMIX 1 gm in 50 mls @ 100 mls/hr 02/02/23 09:00 02/04/23 08:49 Rocephin 1 Gm/50 Ml D5w IV 02/05/23 08:59 100 mls/hr DAILY PATRICIA Administration Insulin Human Regular 0 unit 02/01/23 17:22 02/04/23 06:01 Insulin Regular, Human 100 Unit/Ml (3ml) Vial SUBCUT 3 unit PRN PRN Administration Hyperglycemia Protocol Levothyroxine Sodium 100 mcg 02/01/23 06:00 02/04/23 05:08 Levothyroxine Sodium 100 Mcg Tablet PO 100 mcg QDAC2 PATRICIA Administration Lorazepam 1 mg 02/01/23 21:00 02/03/23 20:48 Lorazepam 1 Mg Tablet PO 1 mg BEDTIME PATRICIA Administration Methylprednisolone Sodium Succinate 40 mg 02/01/23 00:00 02/04/23 08:46 Methylprednisolone Sod Succ/Pf 40 Mg/Ml Vial IVP 40 mg Q8H PATRICIA Administration Nystatin 1 applic 02/01/23 21:00 02/03/23 20:56 Nystatin 15 Gm Powder TP 1 applic BID PATRICIA Administration Omeprazole 20 mg 02/03/23 09:00 02/04/23 05:08 Omeprazole 20 Mg Capsule. PO 20 mg QDAC2 PATRICIA Administration Pravastatin Sodium 40 mg 02/01/23 21:00 02/03/23 20:48 Pravastatin Sodium 40 Mg Tablet PO 40 mg BEDTIME PATRICIA Administration Sodium Chloride 1 syr 02/01/23 21:00 02/04/23 04:38 0.9% Sodium Chloride 10 Ml Disp.Syrin IVF 1 syr Q8HR PATRICIA Administration Spironolactone 25 mg 02/02/23 09:00 02/04/23 08:47 Spironolactone 25 Mg Tablet PO 25 mg DAILY PATRICIA Administration Tamsulosin HCl 0.4 mg 02/02/23 09:00 02/04/23 08:48 Tamsulosin Hcl 0.4 Mg Cap.Er.24h PO 0.4 mg DAILY PATRICIA Administration Tramadol HCl 50 mg 02/01/23 17:32 Tramadol Hcl 50 Mg Tablet PO BID PRN MODERATE PAIN Plan Plan: 1. CHFpEF exacerbation - Improving, diuresed well; last echo in 06/22 showed EF of 60%, 4+ pitting edema with SOB and weight gain, daily weight, I&O. transition to PO lasix today, edema mildly improving 2. COPD - chronic, on baseline 3L, steroids, rocephin, nebs as prescribed 3. DM Type 2 - hold oral medications, diabetic diet, accuchecks qid with ssi 4. Hypertension - chronic, stable, continue home medications 5. CKD - appears at baseline, monitor bmp 6. Weakness/Debility - PT/OT, concern for patient going home with minimal assistance, no home health, will discuss dispo plans with family 7. Dementia - worsening decline, oriented to self only DVT Prophylaxis: Mary Next of kin for decision making is his nieces. Discussed concerns for sending home. Agreed with plan to disposition to custodial. Family requesting [facility]. Social work sending referral. Plan to d/c tomorrow if custodial able to take Review Statement Review Statement: I have personally discussed and reviewed the patient's visit/currently labs/imaging/decision making with Dr. Ramirez, my supervising attending. Greater that 50 minutes spent with patient, 50% of the time spent with this patient was devoted to counseling and coordination of care. Additional Additional Information: 1100 spoke extensively with patient's caregivers. Patient is alert and oriented x 3. They feel they would rather take patient home with help of home health PT/OT. Do not wish for patient to go to custodial at this time and would rather fail at home first. Plan to d/c tomorrow. Agreed with this plan.
[2023-02-04] MEDS: PRAVACHOL PO SCH (20:46)
[2023-02-04] MEDS: ATIVAN PO SCH (20:46)
[2023-02-05] MEDS: SOLU-MEDROL 40 MG IVP SCH ×2 (00:48→08:57)
[2023-02-05] MEDS: PRILOSEC PO SCH (05:03)
[2023-02-05] MEDS: SYNTHROID PO SCH (05:03)
[2023-02-05 06:16] LABS: BASOPHILS % (AUTO) 0.2 % (0.0-3.0); HEMOGLOBIN 11.6 g/dl (14.0-18.0); IMMATURE GRANULOCYTE # (AUTO) 0.1 (0.0-1.0); IMMATURE GRANULOCYTE % (AUTO) 0.7 % (0.0-5.0); LYMPHOCYTES # (AUTO) 0.7 K/uL (0.60-3.4); LYMPHOCYTES % (AUTO) 6.1 (10.0-50.0); MEAN CORPUSCULAR HGB CONC 28.3 (31.8-35.4); MONOCYTES # (AUTO) 0.5 K/uL (0.4-2.0); MONOCYTES % (AUTO) 4.8 (0-10); NEUTROPHILS # (AUTO) 9.8 K/ul (2.0-6.9); NEUTROPHILS % (AUTO) 88.2 % (42.2-75.2); PLATELET COUNT 340 10^3/uL (140-440); RDW COEFFICIENT OF VARIATION 15.9 % (11.6-14.8); RED BLOOD COUNT 4.14 10^6/ul (4.70-6.10); WHITE BLOOD COUNT 11.15 K/ul (4.2-10.2)
[2023-02-05] MEDS: HUMULIN R SUBCUT PRN ×2 (06:23→11:12)
[2023-02-05 06:33] LABS: ALANINE AMINOTRANSFERASE 19.5 U/L (0-50); ALBUMIN 3.53 g/dL (3.5-5.0); ALKALINE PHOSPHATASE 59.7 U/L (56-119); ASPARTATE AMINO TRANSFERASE 26.3 U/L (17-59); BILIRUBIN,TOTAL 0.43 mg/dL (0.2-1.3); BLOOD UREA NITROGEN 43.2 mg/dL (9-20); CALCIUM 8.26 mg/dL (8.4-10.2); CHLORIDE 86.7 mmol/L (98-107); CREATININE 1.02 mg/dL (0.60-1.10); GLUCOSE 170.2 mg/dL (74-106); POTASSIUM 3.87 mmol/L (3.5-5.1); SODIUM 139.4 mmol/L (134.5-145); TOTAL PROTEIN 7.04 g/dL (6.3-8.2)
[2023-02-05 06:48] LABS: CARBON DIOXIDE 49.6 mmol/L (22-30.0)
[2023-02-05 07:11] LABS: ANISOCYTOSIS NOT PRESENT (NOT PRESENT)
[2023-02-05 07:13] LABS: HYPOCHROMASIA 2+ (NOT PRESENT)
[2023-02-05] MEDS: ALDACTONE PO SCH (08:45)
[2023-02-05] MEDS: FLOMAX PO SCH (08:45)
[2023-02-05] MEDS: LASIX TAB PO SCH (08:45)
[2023-02-05] MEDS: COREG PO SCH (08:45)
[2023-02-05] MEDS: WELLBUTRIN PO SCH (08:46)
[2023-02-05] MEDS: LEXAPRO PO SCH (08:46)
[2023-02-05] MEDS: ZYLOPRIM PO SCH (08:46)
[2023-02-05] MEDS: ELIQUIS PO SCH (08:47)
[2023-02-05] MEDS: NYSTOP POWDER TP SCH (08:57)
--- NOTE | 2023-02-05 13:41 | DCSUM ---
Admission Date Admission Date: 02/01/23 Discharge Date Discharge Date: 02/05/23 Admission Diagnosis Admission Diagnosis: 1. CHFpEF exacerbation 2. COPD 3. DM Type 2 4. Hypertension 5. CKD 6. Weakness Discharge Diagnosis Discharge Diagnosis: . CHFpEF exacerbation - Resolved 2. COPD - Chronic, stable 3. DM Type 2 - Chronic, stable 4. Hypertension - Chronic stable 5. CKD - Chronic, stable 6. Weakness/Debility - Improving, home health PT/OT to eval and treat 7. Dementia Hospital Provider Hospital Provider[facility]ILLY[facility] Primary Care Physician: MACKENZIE FUENTES MD Summary of History and Physical Summary of History and Physical: 87 yo male presented to the ER with SOB. Has pmh of COPD and requires 3L via NC at all times. States he has been SOB and not feeling well over the last couple days. Granddaughter reports he has been retaining fluid in his feet and ankles. Patient states he has not been able to get up without assistance in multiple weeks. Denies fever, chills, cough, chest pain, N/V/D. Hospital Course Subjective: During stay, patient was treated for CHF exacerbation with lasix 40 mg BID IVP. Diuresed well since 02/01. Transitioned to PO lasix yesterday and tolerated well. Last echo was in May with EF of 60%. Pitting edema decreased as well as fluid retention to tops of his feet. Also treated for COPD exacerbation. Maintained 3-4L via NC at all times during stay. Was given rocephin, steroids, and nebs. On day 2-3, patient had intermittent episodes of confusion including place and time. Confusion resolved yesterday. Family initially was concerned with ability to take care of patient at home with the confusion. After resolution of confusion, patient and family decided it was safe for him to be discharged back home under their care. Recommended home health PT/OT for strengthening. Appearance: Pleasant, No Apparent Distress and Alert HEENT: MMM and Supple CVS: No Murmur Abdomen: Soft and Non-Tender Respiratory: No Dyspnea Additional Findings: +3 pitting edema bilateral lower extremities, chronic Vital Signs: Most Recent Vital Signs Temperature 97.8 F 02/05/23 05:00 Temperature Source Temporal Artery Scan 02/05/23 05:00 Temperature Source Infrared 02/01/23 14:44 Pulse Rate 80 02/05/23 05:00 Respiratory Rate 22 H 02/05/23 05:00 Blood Pressure 141/82 H 02/05/23 05:00 Blood Pressure Mean 101 02/05/23 05:00 Blood Pressure Left Arm 133/79 02/01/23 16:36 Blood Pressure Location Right Arm 02/05/23 05:00 Blood Pressure Position Supine 02/05/23 05:00 O2 Sat by Pulse Oximetry 97 02/05/23 13:34 Oxygen Delivery Method Nasal Cannula 02/05/23 13:34 Oxygen Flow Rate 3 02/05/23 13:34 Height 6 ft 02/01/23 16:36 Weight 205 lb 8 oz 02/05/23 06:00 Telemetry Type Remote Telemetry 02/05/23 07:00 Telemetry Monitoring Continues 02/05/23 07:00 Irregular Telemetry Rate (Approximate) 80-90 BPM 02/02/23 19:00 Telemetry Heart Rate 100 02/05/23 07:00 Telemetry SPO2 94 02/05/23 07:00 EKG AK Interval 0.22 H 02/05/23 07:00 EKG QRS Interval 0.9 H 02/05/23 07:00 Telemetry Strip Reading Sr with 1st degree AVB with PACs 02/05/23 07:00 Lab Results Last 24 Hours: 02/05/23 05:27 WBC 11.15 H RBC 4.14 L Hgb 11.6 L Hct 41.0 L MCV 99.0 H MCH 28.0 MCHC 28.3 L RDW Coeff of Leonardo 15.9 H Plt Count 340 Immature Gran % (Auto) 0.7 Neut % (Auto) 88.2 H Lymph % (Auto) 6.1 L [place] % (Auto) 4.8 Eos % (Auto) 0.0 Baso % (Auto) 0.2 Neut # (Auto) 9.8 H Lymph # (Auto) 0.7 [place] # (Auto) 0.5 Eos # (Auto) 0.0 Baso # (Auto) 0.0 Immature Gran # (Auto) 0.1 Hypochromasia 2+ Anisocytosis Not present Sodium 139.4 Potassium 3.87 Chloride 86.7 L Carbon Dioxide 49.6 H* D Anion Gap 6.97 BUN 43.2 H Creatinine 1.02 Estimated GFR (MDRD) 69.00 BUN/Creatinine Ratio 42.35 Glucose 170.2 H Calcium 8.26 L Total Bilirubin 0.43 AST 26.3 ALT 19.5 Alkaline Phosphatase 59.7 Total Protein 7.04 Albumin 3.53 Globulin 3.51 Albumin/Globulin Ratio 1.00 Discharge Instructions Discharge Planning: Discharge Planning > 40 minutes If patient is discharged with left ventricular systolic dysfunction: NA Discharged with a beta julio cesar? [] If no, why not? [] Discharged with an twan/arb? [] If no, why not? [] DX: CHF EXACERBATION, COPD EXACERBATION Diabetic Diet Activity as tolerated Home Health PT/OT Follow-up with PCP next week New Medications Keflex 500 mg twice a day for 7 days Prednisone 10 mg taper as directed until complete Discharge Medications: Medications at Discharge (Home Meds & RX) escitalopram oxalate 20 mg tablet (Lexapro) 20 mg PO DAILY #30 tabs 05/23/21 carvedilol 3.125 mg tablet See Rx Instructions .Route .COMPLEX #90 tabs 06/02/22 omeprazole 40 mg capsule,delayed release See Rx Instructions .Route .COMPLEX #90 caps 06/02/22 metformin 500 mg tablet See Rx Instructions .Route .COMPLEX #90 tabs 08/08/22 tamsulosin 0.4 mg capsule See Rx Instructions .Route .COMPLEX #90 caps 08/08/22 budesonide 1 mg/2 mL suspension for nebulization See Rx Instructions .Route .COMPLEX #60 mL 08/19/22 ipratropium 0.5 mg-albuterol 3 mg (2.5 mg base)/3 mL nebulization soln See Rx Instructions .Route .COMPLEX #360 mL 08/19/22 furosemide 40 mg tablet See Rx Instructions .Route .COMPLEX #90 tabs 10/29/22 levothyroxine 100 mcg tablet See Rx Instructions .Route .COMPLEX #90 tabs 10/29/22 lorazepam 1 mg tablet 1 mg PO QHS #90 tabs 10/29/22 pravastatin 40 mg tablet See Rx Instructions .Route .COMPLEX #90 tabs 10/29/22 prednisone 5 mg tablet See Rx Instructions .Route .COMPLEX #90 tabs 10/29/22 spironolactone 25 mg tablet See Rx Instructions .Route .COMPLEX #90 tabs 10/29/22 tramadol 50 mg tablet 50 mg PO BID PRN pain #60 tabs 11/05/22 bupropion HCl 75 mg tablet See Rx Instructions .Route .COMPLEX #30 tabs 12/01/22 allopurinol 100 mg tablet See Rx Instructions .Route .COMPLEX #180 tabs 12/29/22 apixaban 5 mg tablet (Eliquis) See Rx Instructions .Route .COMPLEX #60 tabs 12/29/22 mupirocin 2 % topical ointment 1 applic topical TID PRN decubitus #22 grams 12/31/22 cephalexin 500 mg tablet 500 mg PO BID #14 tabs 02/05/23 prednisone 10 mg tablet 10 mg PO DIRECTED #7 tabs 02/05/23 Discharge Plan Discharge Discharge Orders: Discharge Patient (ONCE); Ordered 02/05/23 Ordered By: SENA BOURNE Activity Restrictions/Additional Instructions: Diabetic Diet Activity as tolerated Home Health PT/OT Follow-up with PCP next week New Medications Keflex 500 mg twice a day for 7 days Prednisone 10 mg taper as directed until complete Instructions: Heart Failure (GEN), COPD (Chronic Obstructive Pulmonary Disease) (GEN) Patient Disposition: HOME WITH FAMILY CARE Prescriptions: New cephalexin 500 mg tablet 500 mg PO BID Qty: 14 0RF prednisone 10 mg tablet 10 mg PO DIRECTED Qty: 7 0RF Rx Instructions: see taper instructions Continued carvedilol 3.125 mg tablet See Rx Instructions .ROUTE .COMPLEX Qty: 90 1RF Dose Instruction: take ONE (1) tablet by mouth every morning Rx Instructions: take ONE (1) tablet by mouth every morning omeprazole 40 mg capsule,delayed release(DR/EC) See Rx Instructions .ROUTE .COMPLEX Qty: 90 1RF Dose Instruction: TAKE ONE (1) CAPSULE BY MOUTH DAILY Rx Instructions: TAKE ONE (1) CAPSULE BY MOUTH DAILY metformin 500 mg tablet See Rx Instructions .ROUTE .COMPLEX Qty: 90 1RF Dose Instruction: TAKE ONE (1) TABLET BY MOUTH DAILY Rx Instructions: TAKE ONE (1) TABLET BY MOUTH DAILY tamsulosin 0.4 mg capsule See Rx Instructions .ROUTE .COMPLEX Qty: 90 1RF Dose Instruction: TAKE ONE (1) CAPSULE BY MOUTH DAILY Rx Instructions: TAKE ONE (1) CAPSULE BY MOUTH DAILY ipratropium-albuterol 0.5 mg-3 mg(2.5 mg base)/3 mL solution for nebulization See Rx Instructions .ROUTE .COMPLEX Qty: 360 10RF Dose Instruction: INHALE ONE (1) VIAL 4 TIMES DAILY Rx Instructions: INHALE ONE (1) VIAL 4 TIMES DAILY budesonide 1 mg/2 mL suspension for nebulization See Rx Instructions .ROUTE .COMPLEX Qty: 60 10RF Dose Instruction: USE ONE (1) VIAL PER NEBULIZER AT BEDTIME Rx Instructions: USE ONE (1) VIAL PER NEBULIZER AT BEDTIME prednisone 5 mg tablet See Rx Instructions .ROUTE .COMPLEX Qty: 90 7RF Dose Instruction: TAKE ONE (1) TABLET BY MOUTH DAILY Rx Instructions: TAKE ONE (1) TABLET BY MOUTH DAILY pravastatin 40 mg tablet See Rx Instructions .ROUTE .COMPLEX Qty: 90 7RF Dose Instruction: TAKE ONE (1) TABLET BY MOUTH DAILY AT BEDTIME Rx Instructions: TAKE ONE (1) TABLET BY MOUTH DAILY AT BEDTIME furosemide 40 mg tablet See Rx Instructions .ROUTE .COMPLEX Qty: 90 7RF Dose Instruction: TAKE ONE (1) TABLET BY MOUTH DAILY Rx Instructions: TAKE ONE (1) TABLET BY MOUTH DAILY levothyroxine 100 mcg tablet See Rx Instructions .ROUTE .COMPLEX Qty: 90 7RF Dose Instruction: TAKE ONE (1) TABLET BY MOUTH DAILY Rx Instructions: TAKE ONE (1) TABLET BY MOUTH DAILY spironolactone 25 mg tablet See Rx Instructions .ROUTE .COMPLEX Qty: 90 7RF Dose Instruction: TAKE ONE (1) TABLET BY MOUTH DAILY Rx Instructions: TAKE ONE (1) TABLET BY MOUTH DAILY lorazepam 1 mg tablet 1 mg PO QHS Qty: 90 0RF bupropion HCl 75 mg tablet See Rx Instructions .ROUTE .COMPLEX Qty: 30 3RF Dose Instruction: TAKE ONE (1) TABLET BY MOUTH DAILY Rx Instructions: TAKE ONE (1) TABLET BY MOUTH DAILY Eliquis 5 mg tablet See Rx Instructions .ROUTE .COMPLEX Qty: 60 3RF Dose Instruction: TAKE ONE (1) BY MOUTH TWICE DAILY Rx Instructions: TAKE ONE (1) BY MOUTH TWICE DAILY allopurinol 100 mg tablet See Rx Instructions .ROUTE .COMPLEX Qty: 180 1RF Dose Instruction: TAKE 2 TABLETS BY MOUTH DAILY Rx Instructions: TAKE 2 TABLETS BY MOUTH DAILY escitalopram oxalate [Lexapro] 20 mg Tablet 20 mg PO DAILY Qty: 30 0RF tramadol 50 mg tablet 50 mg PO BID PRN (Reason: pain) Qty: 60 2RF mupirocin 2 % ointment 1 applic topical TID PRN (Reason: decubitus) Qty: 22 4RF Did you review [place] EPIC DIRECTOR for ALL controlled substances?: No Discussed opioids are addictive and Narcan is available by prescription or from pharmacy.: No Condition: Fair
[2023-02-05 14:39] VITALS: BP 110/66; PULSE 91; RESP 19; TEMP 97.5
== END 2023-02-05 14:40 | disposition home or self-care (01) | DRG 291 ==
LOC: MEDSURG B 14:42 → ED 14:42 → MEDSURG B 16:30
PROVIDERS: ADMIT Hospitalist; ATTEND Nurse Practitioner Family
DX: F03.90 Unspecified dementia, unspecified severity, without behavioral disturbance, psychotic disturbance, mood disturbance, and anxiety; E11.22 Type 2 diabetes mellitus with diabetic chronic kidney disease; Z20.822 Contact with and (suspected) exposure to COVID-19; I11.0 Hypertensive heart disease with heart failure; M62.81 Muscle weakness (generalized); R41.82 Altered mental status, unspecified; R60.0 Localized edema; Z99.81 Dependence on supplemental oxygen; R53.83 Other fatigue; J44.1 Chronic obstructive pulmonary disease with (acute) exacerbation; I50.33 Acute on chronic diastolic (congestive) heart failure

== ENCOUNTER 2023-06-02 09:49 | Inpatient (IN) ==
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
[2023-06-02 10:17] LABS: BASOPHILS % (AUTO) 0.2 % (0.0-3.0); EOSINOPHILS % (AUTO) 0.2 % (0.0-7.0); IMMATURE GRANULOCYTE # (AUTO) 0.1 (0.0-1.0); IMMATURE GRANULOCYTE % (AUTO) 0.4 % (0.0-5.0); LYMPHOCYTES # (AUTO) 0.8 K/uL (0.60-3.4); LYMPHOCYTES % (AUTO) 6.4 (10.0-50.0); MEAN CORPUSCULAR HEMOGLOBIN 26.8 pg (27.0-31.0); MEAN CORPUSCULAR HGB CONC 28.5 (31.8-35.4); MONOCYTES # (AUTO) 0.9 K/uL (0.4-2.0); MONOCYTES % (AUTO) 6.9 (0-10); NEUTROPHILS # (AUTO) 10.6 K/ul (2.0-6.9); NEUTROPHILS % (AUTO) 85.9 % (42.2-75.2); PLATELET COUNT 398 10^3/uL (140-440); RDW COEFFICIENT OF VARIATION 16.3 % (11.6-14.8); WHITE BLOOD COUNT 12.35 K/ul (4.2-10.2)
[2023-06-02 10:29] LABS: ALANINE AMINOTRANSFERASE 13.5 U/L (0-50); ALBUMIN 2.98 g/dL (3.5-5.0); ALKALINE PHOSPHATASE 64.3 U/L (56-119); ASPARTATE AMINO TRANSFERASE 29.7 U/L (17-59); BILIRUBIN,TOTAL 1.06 mg/dL (0.2-1.3); BLOOD UREA NITROGEN 25.1 mg/dL (9-20); CALCIUM 7.69 mg/dL (8.4-10.2); CHLORIDE 85.1 mmol/L (98-107); CREATININE 1.06 mg/dL (0.60-1.10); GLUCOSE 148.8 mg/dL (74-106); POTASSIUM 3.25 mmol/L (3.5-5.1); SODIUM 130.5 mmol/L (134.5-145); TOTAL PROTEIN 6.22 g/dL (6.3-8.2)
[2023-06-02 10:34] LABS: HEMATOCRIT 23.5 % (42.0-52.0); HEMOGLOBIN 6.7 g/dl (14.0-18.0)
[2023-06-02 10:35] LABS: CARBON DIOXIDE 39.1 mmol/L (22-30.0)
[2023-06-02] MEDS: MAG-OX PO ONE (11:10)
[2023-06-02] MEDS: LASIX IVP STA (11:10)
[2023-06-02] MEDS: K-DUR PO ONE (11:10)
[2023-06-02] MEDS ORDERED: TYLENOL PO PRN (12:58)
[2023-06-02] MEDS ORDERED: ZOFRAN 4 MG/2 ML IVP PRN (12:58)
[2023-06-02 13:04] VITALS: BMI 31.3
--- NOTE | 2023-06-02 13:17 | PCM ---
Date of Service Date Seen by Provider: 06/02/23 Time Seen by Provider: 13:00 Admit Day/Time Admission Date: 06/02/23 Admission Time: 11:01 Reason for Admission Chief Complaint: ANEMIA Hospital Provider Hospital Provider: DERICK DOMINIQUE PA-C, [facility] [place] Primary Care Physician Primary Care Physician: MACKENZIE FUENTES MD History of Present Illness History of Present Illness: Patient is a 88 year old male with pmhx of anemia, chronic anticoagulation, COPD with chronic respiratory failure, CKD, gout, hypertension, CHF who presents to the ER with hematoma. Patient was in his wheelchair on Monday 05/29 and bumped his right leg. He presented to ER on 05/[address] showed a large hematoma. Otherwise no abnormalities. He was discharged with keflex. Patient has continued to have worsened swelling and redness of RLE. Complains of pain. Per ERP, the hematoma area is unchanged since first visit. Hgb has trended down to 6.7. Patient admitted to [facility]. Case Discussed With Case Discussed With: Patient's case was discussed with the ER Physicians, Dr. Kebede. [facility] Medical History Acute exacerbation of chronic obstructive pulmonary disease J44.1 - Chronic obstructive pulmonary disease with (acute) exacerbation (ICD-10) COVID-19 U07.1 - COVID-19 (ICD-10) Chest pain R07.9 - Chest pain, unspecified (ICD-10) Encounter for Medicare annual wellness exam Z00.00 - Encounter for general adult medical examination without abnormal findings (ICD-10) Pneumonia J18.9 - Pneumonia, unspecified organism (ICD-10) Pneumonitis J18.9 - Pneumonia, unspecified organism (ICD-10) Wound of right leg resolved S81.801A - Unspecified open wound, right lower leg, initial encounter (ICD- 10) CAP (community acquired pneumonia) J18.9 - Pneumonia, unspecified organism (ICD-10) Acute hypokalemia E87.6 - Hypokalemia (ICD-10) Acute exacerbation of chronic bronchitis J20.9 - Acute bronchitis, unspecified (ICD-10) J42 - Unspecified chronic bronchitis (ICD-10) Cellulitis Right lower extremity; April 2021 L03.90 - Cellulitis, unspecified (ICD-10) B12 deficiency E53.8 - Deficiency of other specified B group vitamins (ICD-10) Hypothyroidism Levothyroxine E03.9 - Hypothyroidism, unspecified (ICD-10) CHF (congestive heart failure) I50.9 - HEART FAILURE, UNSPECIFIED (ICD-10) Essential (primary) hypertension I10 - ESSENTIAL (PRIMARY) HYPERTENSION (ICD-10) COPD (chronic obstructive pulmonary disease) J44.9 - CHRONIC OBSTRUCTIVE PULMONARY DISEASE, UNSPECIFIED (ICD-10) CKD (chronic kidney disease) N18.9 - CHRONIC KIDNEY DISEASE, UNSPECIFIED (ICD-10) BPH (benign prostatic hyperplasia) Flomax N40.0 - BENIGN PROSTATIC HYPERPLASIA WITHOUT LOWER URINRY TRACT SYMP (ICD- 10) Skin cancer C44.90 - UNSPECIFIED MALIGNANT NEOPLASM OF SKIN, UNSPECIFIED (ICD-10) Dyslipidemia Pravastatin E78.4 - OTHER HYPERLIPIDEMIA * DO NOT USE * (ICD-10) Diabetes mellitus type 2 in obese A1C 6.2 12/31/21 Metformin E11.9 - TYPE 2 DIABETES MELLITUS WITHOUT COMPLICATIONS (ICD-10) COR (chronic cor pulmonale) I27.81 - COR PULMONALE (CHRONIC) (ICD-10) Acute pneumonitis J18.9 - PNEUMONIA, UNSPECIFIED ORGANISM (ICD-10) Family History GRANDDAUGHTER No problems noted. FATHER Heart disease BROTHER Heart disease Other No known health problems Social History Smoking and tobacco status: Former smoker Quit status: has quit before Alcohol intake: former Substance use type: does not use Special aidan needs: No Agree to transfusion: Yes Adopted: No Caregiver/support person: No Foster care: No Household members: none Housing: house Lives independently: Yes Daycare: no daycare Number of children: 0 service: Yes intermediate: No Current occupational status: retired Pets and animals: Yes History of recent travel: No Do you think of yourself as: straight/heterosexual Current gender identity: male Seatbelt use: always Drives intoxicated or rides with intoxicated hazardous materials driver: No Water heater temperature set < 120 degrees: Yes Working smoke detector in home: Yes Fire extinguisher in home: Yes Carbon monoxide detector in home: Yes Firearms in home: Yes Allergies Allergies Allergy/AdvReac Type Severity Reaction Status Date / Time No Known Allergies Allergy Verified 05/31/23 10:38 Current Medications Home Medications budesonide 1 mg/2 mL suspension for nebulization See Rx Instructions .Route .COMPLEX #60 mL 08/19/22 [Rx Confirmed 06/02/23 Last Taken 11/12/22] ipratropium 0.5 mg-albuterol 3 mg (2.5 mg base)/3 mL nebulization soln See Rx Instructions .Route .COMPLEX #360 mL 08/19/22 [Rx Confirmed 06/02/23 Last Taken 11/12/22] furosemide 40 mg tablet See Rx Instructions .Route .COMPLEX #90 tabs 10/29/22 [Rx Confirmed 06/02/23 Last Taken Unknown] levothyroxine 100 mcg tablet See Rx Instructions .Route .COMPLEX #90 tabs 10/29/22 [Rx Confirmed 06/02/23 Last Taken Unknown] pravastatin 40 mg tablet See Rx Instructions .Route .COMPLEX #90 tabs 10/29/22 [Rx Confirmed 06/02/23 Last Taken Unknown] prednisone 5 mg tablet See Rx Instructions .Route .COMPLEX #90 tabs 10/29/22 [Rx Confirmed 06/02/23 Last Taken Unknown] spironolactone 25 mg tablet See Rx Instructions .Route .COMPLEX #90 tabs 10/29/22 [Rx Confirmed 06/02/23 Last Taken Unknown] allopurinol 100 mg tablet See Rx Instructions .Route .COMPLEX #180 tabs 12/29/22 [Rx Confirmed 06/02/23 Last Taken Unknown] mupirocin 2 % topical ointment 1 applic topical TID PRN decubitus #22 grams 12/31/22 [Rx Confirmed 06/02/23 Last Taken Unknown] lorazepam 1 mg tablet 1 mg PO QHS #90 tabs 03/16/23 [Rx Confirmed 06/02/23 Last Taken Unknown] omeprazole 40 mg capsule,delayed release See Rx Instructions .Route .COMPLEX #90 caps 03/26/23 [Rx Confirmed 06/02/23 Last Taken Unknown] carvedilol 3.125 mg tablet See Rx Instructions .Route .COMPLEX #90 tabs 04/01/23 [Rx Confirmed 06/02/23 Last Taken Unknown] escitalopram oxalate 20 mg tablet See Rx Instructions .Route .COMPLEX #90 tabs 04/01/23 [Rx Confirmed 06/02/23 Last Taken Unknown] metformin 500 mg tablet See Rx Instructions .Route .COMPLEX #90 tabs 04/01/23 [Rx Confirmed 06/02/23 Last Taken Unknown] tamsulosin 0.4 mg capsule See Rx Instructions .Route .COMPLEX #90 caps 04/01/23 [Rx Confirmed 06/02/23 Last Taken Unknown] bupropion HCl 75 mg tablet See Rx Instructions .Route .COMPLEX #30 tabs 05/05/23 [Rx Confirmed 06/02/23 Last Taken Unknown] apixaban 5 mg tablet (Eliquis) See Rx Instructions .Route .COMPLEX #60 tabs 05/25/23 [Rx Confirmed 06/02/23 Last Taken Unknown] cephalexin 500 mg capsule 500 mg PO BID 5 days #10 caps 05/31/23 [Rx Confirmed 06/02/23 Last Taken Unknown] Home Acetaminophen (Acetaminophen 325 Mg Tablet) 650 mg PO Q4H PRN PRN Reason: Mild Pain Furosemide (Furosemide Inj 40 Mg/4 Ml Vial) 40 mg IVP Q8HR PATRICIA Cefazolin Sodium/Dextrose (Ancef 1 Gm/50 Ml D5w) 2 gm in 100 mls @ 150 mls/hr IV Q8HR PATRICIA Stop: 06/05/23 13:09 Insulin Human Lispro (Insulin Lispro 100 Unit/Ml Vial) 0 unit SUBCUT PRN PRN; Protocol PRN Reason: Hyperglycemia Ondansetron HCl (Ondansetron Hcl/Pf 4 Mg/2 Ml Sdv) 4 mg IVP Q6H PRN PRN Reason: Nausea / Vomiting Discontinued Medications Furosemide (Furosemide Inj 20 Mg/2 Ml Vial) 20 mg IVP ONCE STA Stop: 06/02/23 10:54 Last Admin: 06/02/23 11:10 Dose: 20 mg Magnesium Oxide (Magnesium Oxide 400 Mg Tablet) 400 mg PO ONCE ONE Stop: 06/02/23 11:03 Last Admin: 06/02/23 11:10 Dose: 400 mg Potassium Chloride (Potassium Chloride 20 Meq Tab) 40 meq PO ONCE ONE Stop: 06/02/23 11:03 Last Admin: 06/02/23 11:10 Dose: 40 meq Opioid Naive vs. Tolerant Does Patient Take Opioids?: No Is Patient Opioid Naive?: Yes What is Opioid Naive?: *Opioid Naive implies the patient is not already taking opioids or not chronically receiving opioids on a daily basis. *PRN dosing is not "usually" associated with tolerance. *Patients are at higher risk of over-sedation and aspiration. Is Patient Opioid Tolerant?: No What is Opioid Tolerant?: *Opioid Tolerance implies less than the expected response to an opioid. *Acquired tolerance is defined by the patient taking 60mg of oral morphine daily (or equianalgesic dose of another opioid) for 1 week or more. *Often associated with chronic pain. *May take more than usual dose to achieve desired pain control. Review of Systems Constitutional: Reports Weakness; Denies Fever or Fatigue Head: Reports Normocephalic and Atraumatic Throat: Denies Sore Throat or Difficulty Swallowing Cardiovascular: Reports Edema; Denies Chest pain or Chest Pressure Respiratory: Denies Cough or Shortness of air Gastrointestinal: Denies Nausea, Vomiting, Diarrhea or Abdominal pain Musculoskeletal: Reports Other (+right lower leg pain, swelling, and hematoma ) Neurological: Reports Weakness and Problems with walking Physical examination Most Recent Vital Signs: Most Recent Vital Signs Temperature 97.6 F 06/02/23 12:33 Temperature Source Temporal Artery Scan 06/02/23 12:33 Temperature Source Oral 06/02/23 09:51 Pulse Rate 91 06/02/23 12:33 Respiratory Rate 17 06/02/23 12:33 Blood Pressure 102/54 L 06/02/23 09:51 Blood Pressure Right Arm 112/63 06/02/23 12:33 Blood Pressure Position Supine 06/02/23 12:33 O2 Sat by Pulse Oximetry 96 06/02/23 12:33 Oxygen Delivery Method Nasal Cannula 06/02/23 13:00 Oxygen Flow Rate 2 06/02/23 12:33 Height 6 ft 06/02/23 12:33 Weight 231 lb 1.6 oz 06/02/23 12:33 Telemetry Heart Rate 100 02/05/23 07:00 Telemetry SPO2 94 02/05/23 07:00 Appearance: Positive No Apparent Distress, Alert and Oriented x3 and Other (+chronically ill appearing ) Skin: Positive [place], Warm, Good Turgor and Other (RLE - erythema of entire extremity knee down. 3+ pitting edema luc. Right sided lateral hematoma with sloughing of the skin, seeping. No pain out of proportion. ) HEENT: Positive Normocephalic and Atraumatic Neck: Positive Supple and Midline Trachea Chest/Lungs: Positive Clear to Auscultation Bilaterally; Negative Rales, Rhonci or Wheezes Heart: Positive RRR GI/: Positive Soft, Nontender and Bowel Sounds Normal Extremities: Positive Edema (+3+ pitting edema luc ) Neurological: Positive Cranial Nerves Intact, Alert, Oriented and Other (+generalized weakness ) Psychiatric: Positive Oriented x4, Appropriate Mood and Appropriate Affect Labs This Visit Labs This Visit: Labs This Visit 06/02/23 06/02/23 10:13 11:04 WBC 12.35 H RBC 2.50 L Hgb 6.7 L* Hct 23.5 L D MCV 94.0 MCH 26.8 L MCHC 28.5 L RDW Coeff of Leonardo 16.3 H Plt Count 398 Immature Gran % (Auto) 0.4 Neut % (Auto) 85.9 H Lymph % (Auto) 6.4 L [place] % (Auto) 6.9 Eos % (Auto) 0.2 Baso % (Auto) 0.2 Neut # (Auto) 10.6 H Lymph # (Auto) 0.8 [place] # (Auto) 0.9 Eos # (Auto) 0.0 Baso # (Auto) 0.0 Immature Gran # (Auto) 0.1 Sodium 130.5 L Potassium 3.25 L Chloride 85.1 L Carbon Dioxide 39.1 H Anion Gap 9.55 BUN 25.1 H Creatinine 1.06 Estimated GFR (MDRD) 66.00 BUN/Creatinine Ratio 23.67 Glucose 148.8 H Calcium 7.69 L Total Bilirubin 1.06 AST 29.7 ALT 13.5 Alkaline Phosphatase 64.3 Total Protein 6.22 L Albumin 2.98 L Globulin 3.24 Albumin/Globulin Ratio 0.91 Blood Type B NEGATIVE B NEGATIVE Antibody Screen Negative Crossmatch (AHG) See Detail Imaging Imaging: EXAM: CT RIGHT ANKLE WITH CONTRAST HISTORY: Injury, bruising, edema COMPARISON: None. FINDINGS: Axial CT images of the right ankle with IV contrast and with multiplanar reformatted images. No discrete fracture line. No dislocation. Degenerative changes to the ankle and imaged midfoot. Extensive superficial soft tissue edema and skin thickening about the lower leg, ankle and imaged foot. Soft tissue edema and skin thickening in the left lower leg, partially imaged. Lobulated, hyperattenuating collection centered in the lateral subcutaneous soft tissues measuring approximately 18 cm cranial-caudal by 12 cm AP and up to 4 cm in depth. Atrophy of the lower leg muscles. Vascular calcifications. IMPRESSION: Extensive superficial soft tissue edema and skin thickening about the right lower leg, ankle and foot. The appearance is nonspecific but can be seen with cellulitis. 18 x 12 cm hyperattenuating collection centered in the lateral subcutaneous and superficial soft tissues of the lateral lower leg. The appearance is suggestive of hematoma although other etiologies are not excludable. Clinical follow-up to ensure resolution and exclude other etiology. Superficial soft tissue edema and skin thickening involving the imaged left lower leg. Please see above description and additional findings. Review Statement Review Statement: I have independently reviewed and interpreted the labs/EKGs/imaging that were ordered by the ER provider. I have reviewed all outside records that are available currently in our EMR including imaging/notes/labs from previous visits. Plan Plan: 1. Acute on chronic anemia in setting of right lower ext hematoma - 2U PRBCs ordered, hold eliquis, H&H 1 hr after transfusion. Lasix ordered as well. 2. Cellulitis RLE in setting of injury/hematoma - Cefazolin 2 mg q8rhs ordered, mrsa swab. 3. Acute on chronic heart failure exacerbation - 3+ pitting edema, significantly worse than usual per caregiver. Lasix 40 mg q8hrs. 4. COPD with chronic respiratory failure - Not in acute exacerbation. Cont home meds. 5. Hx of PEs - Hold eliquis 6. Hypertension - Cont home meds 7. Hypothyroidism - Cont home meds 8. BPH - Cont home meds 9. Hyperlipidemia - Cont home meds DVT Prophylaxis: Holding in light of anemia Time Spent: Greater than 80 minutes spent with patient, 50% of the time spent with this patient was devoted to counseling and coordination of care. Advanced Care Planninminutes spent discussing advance care planning. DNR Admit to: Obs Discussed Plan of Care with Dr. Magaly Fuentes. Medications Medication Orders: Medications Ordered Category Date Time Status Acetaminophen [Tylenol] Meds 06/02/23 12:58 Active 650 mg PO Q4H PRN Cefazolin Sodium/Dextrose,Iso [Ancef 1 gm/50 ml D5w] Meds 06/02/23 13:10 Ordered 2 gm in 100 ml IV Q8HR Furosemide [Lasix] Meds 06/02/23 19:00 Ordered 40 mg IVP Q8HR Insulin Lispro [Humalog] Meds 06/02/23 12:58 Active See Protocol SUBCUT PRN PRN Ondansetron HCl/Pf [Zofran 4 mg/2 ml] Meds 06/02/23 12:58 Active 4 mg IVP Q6H PRN
[2023-06-02] MEDS: ANCEF 1 GM/50 ML D5W 2 GM/100 ML BAG IV SCH (16:10)
[2023-06-02] MEDS: LASIX IVP SCH (17:42)
[2023-06-02] MEDS: MORPHINE 2 MG/ML SYRINGE IVP PRN (17:53)
[2023-06-02] MEDS ORDERED: LASIX IVP SCH (19:00)
[2023-06-02] MEDS: PRAVACHOL PO SCH (20:19)
[2023-06-02] MEDS: ATIVAN PO SCH (20:19)
[2023-06-02] MEDS: DUONEB NEB SCH (20:32)
[2023-06-02] MEDS: PULMICORT 1 MG/2 ML NEB SCH (20:39)
[2023-06-02 23:02] LABS: HEMATOCRIT 29.2 % (42.0-52.0); HEMOGLOBIN 8.7 g/dl (14.0-18.0)
[2023-06-03 05:34] LABS: BASOPHILS % (AUTO) 0.3 % (0.0-3.0); EOSINOPHILS # (AUTO) 0.1 K/ul (0.0-0.7); EOSINOPHILS % (AUTO) 1.1 % (0.0-7.0); HEMATOCRIT 27.8 % (42.0-52.0); HEMOGLOBIN 8.5 g/dl (14.0-18.0); IMMATURE GRANULOCYTE % (AUTO) 0.4 % (0.0-5.0); LYMPHOCYTES # (AUTO) 0.7 K/uL (0.60-3.4); LYMPHOCYTES % (AUTO) 6.8 (10.0-50.0); MEAN CORPUSCULAR HGB CONC 30.6 (31.8-35.4); MEAN CORPUSCULAR VOLUME 91.4 fl (80.0-94.0); MONOCYTES # (AUTO) 0.9 K/uL (0.4-2.0); MONOCYTES % (AUTO) 8.2 (0-10); NEUTROPHILS # (AUTO) 8.6 K/ul (2.0-6.9); NEUTROPHILS % (AUTO) 83.2 % (42.2-75.2); PLATELET COUNT 392 10^3/uL (140-440); RDW COEFFICIENT OF VARIATION 16.5 % (11.6-14.8); RED BLOOD COUNT 3.04 10^6/ul (4.70-6.10); WHITE BLOOD COUNT 10.36 K/ul (4.2-10.2)
[2023-06-03] MEDS: SYNTHROID PO SCH (05:47)
[2023-06-03] MEDS: PRILOSEC PO SCH (05:47)
[2023-06-03 05:51] LABS: PROTHROMBIN TIME 11.7 SEC (9.3-11.0)
[2023-06-03 05:52] LABS: ALANINE AMINOTRANSFERASE 11.5 U/L (0-50); ALBUMIN 2.87 g/dL (3.5-5.0); ALKALINE PHOSPHATASE 62.5 U/L (56-119); ASPARTATE AMINO TRANSFERASE 22.9 U/L (17-59); BILIRUBIN,TOTAL 1.55 mg/dL (0.2-1.3); BLOOD UREA NITROGEN 20.3 mg/dL (9-20); CALCIUM 7.14 mg/dL (8.4-10.2); CHLORIDE 86.8 mmol/L (98-107); CREATININE 1.01 mg/dL (0.60-1.10); GLUCOSE 104.4 mg/dL (74-106); POTASSIUM 2.84 mmol/L (3.5-5.1); SODIUM 132.6 mmol/L (134.5-145); TOTAL PROTEIN 6.24 g/dL (6.3-8.2)
[2023-06-03 05:58] LABS: CARBON DIOXIDE 39.4 mmol/L (22-30.0)
[2023-06-03] MEDS: K-DUR PO ONE ×2 (07:29→15:37)
[2023-06-03] MEDS: FLOMAX PO SCH (08:48)
[2023-06-03] MEDS: LEXAPRO PO SCH (08:48)
[2023-06-03] MEDS: PREDNISONE PO SCH (08:48)
[2023-06-03] MEDS: ZYLOPRIM PO SCH (08:48)
[2023-06-03] MEDS: ALDACTONE PO SCH (08:48)
[2023-06-03] MEDS: COREG PO SCH (08:48)
[2023-06-03] MEDS: WELLBUTRIN PO SCH (08:49)
--- NOTE | 2023-06-03 11:09 | PCM.PROG ---
Date/Time Seen Date Seen by Provider: 06/03/23 Time Seen by Provider: 08:40 Provider Provider: [facility] Chief Complaint Chief Complaint: ANEMIA Subjective Subjective: Patient states he feels "ok" today. States his leg hurts. Swelling and redness mildly improved. Objective Appearance: Positive No Apparent Distress, Alert and Oriented x3 and Other (+chronically ill appearing ) Chest/Lungs: Positive Clear to Auscultation Bilaterally; Negative Rales, Rhonci or Wheezes Heart: Positive RRR GI/: Positive Soft, Nontender, Bowel Sounds Normal and No Distention Musculoskeletal: Positive Other (RLE - erythema of extremity knee down, circumferential, however overall improved today. 3+ pitting edema luc, mildly improved. Right sided lateral hematoma with sloughing of the skin superficially, seeping. No pain out of proportion. ) Neurological: Positive Cranial Nerves Intact, Alert, Oriented and Other (+generalized weakness ) Vital Signs Vital Signs: Vital Signs: Last 24 Hours 06/02/23 12:33 06/02/23 12:33 06/02/23 13:00 Temperature 97.6 F Temperature Source Temporal Artery Scan Pulse Rate 91 Pulse Rate [Left Radial] 96 Respiratory Rate 17 20 Blood Pressure Blood Pressure Mean Blood Pressure Right Arm 112/63 Blood Pressure Location Blood Pressure Position Supine O2 Sat by Pulse Oximetry 96 Oxygen Delivery Method Nasal Cannula Nasal Cannula Nasal Cannula Oxygen Flow Rate 2 2 Height 6 ft Weight 231 lb 1.6 oz Telemetry Type Telemetry Monitoring Irregular Telemetry Rate (Approximate) Telemetry Heart Rate EKG ME Interval EKG QRS Interval Telemetry Strip Reading 06/02/23 13:30 06/02/23 13:45 06/02/23 14:00 Temperature 97.6 F 97 F L Temperature Source Pulse Rate 91 90 Pulse Rate [Left Radial] Respiratory Rate 17 18 Blood Pressure 112/63 93/54 L Blood Pressure Mean 79 67 Blood Pressure Right Arm Blood Pressure Location Blood Pressure Position O2 Sat by Pulse Oximetry Oxygen Delivery Method Nasal Cannula Oxygen Flow Rate Height Weight Telemetry Type Telemetry Monitoring Irregular Telemetry Rate (Approximate) Telemetry Heart Rate EKG ME Interval EKG QRS Interval Telemetry Strip Reading 06/02/23 14:33 06/02/23 14:45 06/02/23 15:25 Temperature 97.5 F L Temperature Source Pulse Rate 88 Pulse Rate [Left Radial] Respiratory Rate 20 Blood Pressure 88/50 L Blood Pressure Mean 62 Blood Pressure Right Arm Blood Pressure Location Blood Pressure Position O2 Sat by Pulse Oximetry Oxygen Delivery Method Nasal Cannula Oxygen Flow Rate Height Weight Telemetry Type Remote Telemetry Telemetry Monitoring Started Irregular Telemetry Rate (Approximate) Telemetry Heart Rate 82 EKG ME Interval EKG QRS Interval 0.08 Telemetry Strip Reading Afib 06/02/23 15:45 06/02/23 16:00 06/02/23 16:45 Temperature 97.6 F 98.7 F Temperature Source Pulse Rate 82 90 Pulse Rate [Left Radial] Respiratory Rate 17 48 H Blood Pressure 103/55 L 125/98 H Blood Pressure Mean 71 107 Blood Pressure Right Arm Blood Pressure Location Blood Pressure Position O2 Sat by Pulse Oximetry Oxygen Delivery Method Nasal Cannula Oxygen Flow Rate Height Weight Telemetry Type Telemetry Monitoring Irregular Telemetry Rate (Approximate) Telemetry Heart Rate EKG ME Interval EKG QRS Interval Telemetry Strip Reading 06/02/23 17:00 06/02/23 17:32 06/02/23 17:33 Temperature 97.8 F Temperature Source Pulse Rate 94 Pulse Rate [Left Radial] Respiratory Rate Blood Pressure 111/53 L Blood Pressure Mean 72 Blood Pressure Right Arm Blood Pressure Location Blood Pressure Position O2 Sat by Pulse Oximetry Oxygen Delivery Method Nasal Cannula Nasal Cannula Oxygen Flow Rate Height Weight Telemetry Type Telemetry Monitoring Irregular Telemetry Rate (Approximate) Telemetry Heart Rate EKG ME Interval EKG QRS Interval Telemetry Strip Reading 06/02/23 18:00 06/02/23 18:05 06/02/23 18:20 Temperature 97.8 F 97.8 F 97.8 F Temperature Source Temporal Artery Scan Pulse Rate 86 86 90 Pulse Rate [Left Radial] Respiratory Rate 24 H 24 H 24 H Blood Pressure 119/62 119/62 100/61 Blood Pressure Mean 81 81 74 Blood Pressure Right Arm Blood Pressure Location Left Arm Blood Pressure Position Supine O2 Sat by Pulse Oximetry 94 L Oxygen Delivery Method Nasal Cannula Oxygen Flow Rate 2 Height Weight Telemetry Type Telemetry Monitoring Irregular Telemetry Rate (Approximate) Telemetry Heart Rate EKG ME Interval EKG QRS Interval Telemetry Strip Reading 06/02/23 19:00 06/02/23 19:00 06/02/23 19:20 Temperature 97.4 F L Temperature Source Pulse Rate 85 Pulse Rate [Left Radial] Respiratory Rate 24 H Blood Pressure 91/47 L Blood Pressure Mean 61 Blood Pressure Right Arm Blood Pressure Location Blood Pressure Position O2 Sat by Pulse Oximetry Oxygen Delivery Method Nasal Cannula Oxygen Flow Rate Height Weight Telemetry Type Remote Telemetry Telemetry Monitoring Continues Irregular Telemetry Rate (Approximate) 80-90 BPM Telemetry Heart Rate EKG ME Interval EKG QRS Interval 0.09 Telemetry Strip Reading A fib 06/02/23 20:00 06/02/23 20:00 06/02/23 20:09 Temperature Temperature Source Pulse Rate Pulse Rate [Left Radial] Respiratory Rate Blood Pressure Blood Pressure Mean Blood Pressure Right Arm Blood Pressure Location Blood Pressure Position O2 Sat by Pulse Oximetry 93 L Oxygen Delivery Method Nasal Cannula Nasal Cannula Nasal Cannula Oxygen Flow Rate 2 2 Height Weight Telemetry Type Telemetry Monitoring Irregular Telemetry Rate (Approximate) Telemetry Heart Rate EKG ME Interval EKG QRS Interval Telemetry Strip Reading 06/02/23 20:20 06/02/23 20:46 06/02/23 21:20 Temperature 97.5 F L 97.3 F L Temperature Source Pulse Rate 87 73 Pulse Rate [Left Radial] Respiratory Rate 20 20 Blood Pressure 108/64 99/60 Blood Pressure Mean 78 73 Blood Pressure Right Arm Blood Pressure Location Blood Pressure Position O2 Sat by Pulse Oximetry Oxygen Delivery Method Nasal Cannula Oxygen Flow Rate Height Weight Telemetry Type Telemetry Monitoring Irregular Telemetry Rate (Approximate) Telemetry Heart Rate EKG ME Interval EKG QRS Interval Telemetry Strip Reading 06/02/23 21:33 06/02/23 21:50 06/02/23 22:00 Temperature 97.3 F L 97.5 F L Temperature Source Temporal Artery Scan Pulse Rate 73 75 Pulse Rate [Left Radial] Respiratory Rate 20 20 Blood Pressure 99/60 108/64 Blood Pressure Mean 73 78 Blood Pressure Right Arm Blood Pressure Location Left Arm Blood Pressure Position Supine O2 Sat by Pulse Oximetry 95 Oxygen Delivery Method Nasal Cannula Nasal Cannula Oxygen Flow Rate 2 Height Weight Telemetry Type Telemetry Monitoring Irregular Telemetry Rate (Approximate) Telemetry Heart Rate EKG ME Interval EKG QRS Interval Telemetry Strip Reading 06/02/23 23:00 06/03/23 00:00 06/03/23 01:00 Temperature Temperature Source Pulse Rate Pulse Rate [Left Radial] Respiratory Rate Blood Pressure Blood Pressure Mean Blood Pressure Right Arm Blood Pressure Location Blood Pressure Position O2 Sat by Pulse Oximetry Oxygen Delivery Method Nasal Cannula Nasal Cannula Nasal Cannula Oxygen Flow Rate Height Weight Telemetry Type Telemetry Monitoring Irregular Telemetry Rate (Approximate) Telemetry Heart Rate EKG ME Interval EKG QRS Interval Telemetry Strip Reading 06/03/23 01:00 06/03/23 02:00 06/03/23 03:00 Temperature Temperature Source Pulse Rate Pulse Rate [Left Radial] Respiratory Rate Blood Pressure Blood Pressure Mean Blood Pressure Right Arm Blood Pressure Location Blood Pressure Position O2 Sat by Pulse Oximetry Oxygen Delivery Method Room Air Room Air Oxygen Flow Rate Height Weight Telemetry Type Remote Telemetry Telemetry Monitoring Continues Irregular Telemetry Rate (Approximate) 80-90 BPM Telemetry Heart Rate EKG ME Interval EKG QRS Interval 0.09 Telemetry Strip Reading A fib 06/03/23 04:00 06/03/23 05:00 06/03/23 05:18 Temperature Temperature Source Pulse Rate Pulse Rate [Left Radial] Respiratory Rate Blood Pressure Blood Pressure Mean Blood Pressure Right Arm Blood Pressure Location Blood Pressure Position O2 Sat by Pulse Oximetry 90 L Oxygen Delivery Method Room Air Room Air Room Air Oxygen Flow Rate Height Weight Telemetry Type Telemetry Monitoring Irregular Telemetry Rate (Approximate) Telemetry Heart Rate EKG ME Interval EKG QRS Interval Telemetry Strip Reading 06/03/23 05:30 06/03/23 06:00 06/03/23 07:00 Temperature 97.0 F L Temperature Source Temporal Artery Scan Pulse Rate 87 Pulse Rate [Left Radial] Respiratory Rate 18 Blood Pressure 116/71 Blood Pressure Mean 86 Blood Pressure Right Arm Blood Pressure Location Left Arm Blood Pressure Position Supine O2 Sat by Pulse Oximetry 90 L Oxygen Delivery Method Nasal Cannula Nasal Cannula Nasal Cannula Oxygen Flow Rate 2 Height Weight Telemetry Type Telemetry Monitoring Irregular Telemetry Rate (Approximate) Telemetry Heart Rate EKG ME Interval EKG QRS Interval Telemetry Strip Reading 06/03/23 07:00 06/03/23 08:00 06/03/23 08:45 Temperature Temperature Source Pulse Rate Pulse Rate [Left Radial] Respiratory Rate Blood Pressure Blood Pressure Mean Blood Pressure Right Arm Blood Pressure Location Blood Pressure Position O2 Sat by Pulse Oximetry Oxygen Delivery Method Nasal Cannula Nasal Cannula Oxygen Flow Rate 2 Height Weight Telemetry Type Remote Telemetry Telemetry Monitoring Continues Irregular Telemetry Rate (Approximate) 90's Telemetry Heart Rate EKG ME Interval 0.18 EKG QRS Interval 0.12 H Telemetry Strip Reading SR with BBB with freq. PAC' s and PVC's 06/03/23 09:00 06/03/23 09:43 06/03/23 10:00 Temperature Temperature Source Pulse Rate Pulse Rate [Left Radial] Respiratory Rate Blood Pressure Blood Pressure Mean Blood Pressure Right Arm Blood Pressure Location Blood Pressure Position O2 Sat by Pulse Oximetry 96 Oxygen Delivery Method Nasal Cannula Nasal Cannula Nasal Cannula Oxygen Flow Rate 2 Height Weight Telemetry Type Telemetry Monitoring Irregular Telemetry Rate (Approximate) Telemetry Heart Rate EKG ME Interval EKG QRS Interval Telemetry Strip Reading 06/03/23 10:00 06/03/23 10:53 Temperature 97.5 F L Temperature Source Temporal Artery Scan Pulse Rate 80 Pulse Rate [Left Radial] Respiratory Rate 18 Blood Pressure 95/51 L Blood Pressure Mean 65 Blood Pressure Right Arm Blood Pressure Location Right Arm Blood Pressure Position Sitting O2 Sat by Pulse Oximetry 93 L Oxygen Delivery Method Nasal Cannula Nasal Cannula Oxygen Flow Rate 2 Height Weight Telemetry Type Telemetry Monitoring Irregular Telemetry Rate (Approximate) Telemetry Heart Rate EKG ME Interval EKG QRS Interval Telemetry Strip Reading Lab Results Lab Results: Lab Results: Last 24 Hours 06/03/23 06/02/23 06/02/23 05:05 22:55 11:04 WBC 10.36 H RBC 3.04 L Hgb 8.5 L 8.7 L Hct 27.8 L 29.2 L MCV 91.4 MCH 28.0 MCHC 30.6 L RDW Coeff of Leonardo 16.5 H Plt Count 392 Immature Gran % (Auto) 0.4 Neut % (Auto) 83.2 H Lymph % (Auto) 6.8 L [place] % (Auto) 8.2 Eos % (Auto) 1.1 Baso % (Auto) 0.3 Neut # (Auto) 8.6 H Lymph # (Auto) 0.7 [place] # (Auto) 0.9 Eos # (Auto) 0.1 Baso # (Auto) 0.0 Immature Gran # (Auto) 0.0 PT 11.7 H INR 1.14 Sodium 132.6 L Potassium 2.84 L Chloride 86.8 L Carbon Dioxide 39.4 H Anion Gap 9.24 BUN 20.3 H Creatinine 1.01 Estimated GFR (MDRD) 70.00 BUN/Creatinine Ratio 20.09 Glucose 104.4 Calcium 7.14 L Total Bilirubin 1.55 H AST 22.9 ALT 11.5 Alkaline Phosphatase 62.5 Total Protein 6.24 L Albumin 2.87 L Globulin 3.37 Albumin/Globulin Ratio 0.85 Blood Type B NEGATIVE Antibody Screen Negative Crossmatch (AHG) See Detail Additional Comments Additional Comments: I have independently reviewed and interpreted the labs/EKGs/imaging ordered during this hospital stay. I have reviewed outside records that are available in our EMR that pertain to medical stay including imaging/notes/labs from previous visits. Active Medications Active Medications: Medications Generic Name Dose Route Start Last Admin Trade Name Freq PRN Reason Stop Dose Admin Acetaminophen 650 mg 06/02/23 12:58 Acetaminophen 325 Mg Tablet PO Q4H PRN Mild Pain Albuterol/Ipratropium 3 ml 06/02/23 20:00 06/03/23 09:44 Ipratropium/Albuterol Vial.Neb NEB 3 ml RTQID PATRICIA Administration Allopurinol 200 mg 06/03/23 09:00 06/03/23 08:48 Allopurinol 100 Mg Tablet PO 200 mg DAILY PATRICIA Administration Budesonide 1 mg 06/02/23 21:00 06/02/23 20:39 Budesonide 1 Mg/2 Ml Vial.Neb NEB 1 mg BEDTIME PATRICIA Administration Bupropion HCl 75 mg 06/03/23 09:00 06/03/23 08:49 Bupropion Hcl 75 Mg Tablet PO 75 mg DAILY PATRICIA Administration Carvedilol 3.125 mg 06/03/23 09:00 06/03/23 08:48 Carvedilol 3.125 Mg Tablet PO 3.125 mg DAILY PATRICIA Administration Escitalopram Oxalate 20 mg 06/03/23 09:00 06/03/23 08:48 Escitalopram Oxalate 10 Mg Tablet PO 20 mg DAILY PATRICIA Administration Furosemide 40 mg 06/02/23 17:25 06/03/23 08:49 Furosemide Inj 40 Mg/4 Ml Vial IVP 40 mg Q8H PATRICIA Administration Cefazolin Sodium/Dextrose 2 gm in 100 mls @ 150 mls/hr 06/02/23 13:10 06/03/23 05:38 Ancef 1 Gm/50 Ml D5w IV 06/05/23 13:09 150 mls/hr Q8HR PATRICIA Administration Insulin Human Lispro 0 unit 06/02/23 12:58 Insulin Lispro 100 Unit/Ml Vial SUBCUT PRN PRN Hyperglycemia Protocol Levothyroxine Sodium 100 mcg 06/03/23 06:00 06/03/23 05:47 Levothyroxine Sodium 100 Mcg Tablet PO 100 mcg QDAC2 PATRICIA Administration Lorazepam 1 mg 06/02/23 21:00 06/02/23 20:19 Lorazepam 1 Mg Tablet PO 1 mg BEDTIME PATRICIA Administration Morphine Sulfate 2 mg 06/02/23 17:41 06/03/23 09:26 Morphine Sulfate 2 Mg/Ml Syringe IVP 2 mg Q6H PRN Administration Pain Omeprazole 40 mg 06/03/23 06:00 06/03/23 05:47 Omeprazole 20 Mg Capsule.Dr PO 40 mg QDAC2 APTRICIA Administration Ondansetron HCl 4 mg 06/02/23 12:58 Ondansetron Hcl/Pf 4 Mg/2 Ml Sdv IVP Q6H PRN Nausea / Vomiting Pravastatin Sodium 40 mg 06/02/23 21:00 06/02/23 20:19 Pravastatin Sodium 40 Mg Tablet PO 40 mg BEDTIME PATRICIA Administration Prednisone 5 mg 06/03/23 07:30 06/03/23 08:48 Prednisone 5 Mg Tablet PO 5 mg DAILYWM2 PATRICIA Administration Sodium Chloride 1 syr 06/03/23 05:00 06/03/23 08:52 0.9% Sodium Chloride 10 Ml Disp.Syrin IVF 1 syr Q8HR PATRICIA Administration Sodium Chloride 1 syr 06/03/23 09:24 0.9% Sodium Chloride 10 Ml Disp.Syrin IVF PRN PRN Maintain IV Patency Spironolactone 25 mg 06/03/23 09:00 06/03/23 08:48 Spironolactone 25 Mg Tablet PO 25 mg DAILY PATRICIA Administration Tamsulosin HCl 0.4 mg 06/03/23 09:00 06/03/23 08:48 Tamsulosin Hcl 0.4 Mg Cap.Er.24h PO 0.4 mg DAILY PATRICIA Administration Plan Plan: 1. Acute on chronic anemia in setting of right lower ext hematoma - Improved, s/p 2U PRBCs given on 06/01, hold eliquis. 2. Cellulitis RLE in setting of injury/hematoma - Improved. Cefazolin 2 mg q8rhs ordered, mrsa swab. 3. Acute on chronic heart failure exacerbation - 3+ pitting edema, significantly worse than usual per caregiver. Lasix 40 mg q8hrs. 4. COPD with chronic respiratory failure - Not in acute exacerbation. Cont home meds. 5. Hx of PEs - Hold eliquis 6. Hypertension - Cont home meds 7. Hypothyroidism - Cont home meds 8. BPH - Cont home meds 9. Hyperlipidemia - Cont home meds DVT Prophylaxis: Holding in light of anemia/hematoma. Dispo: Will require another 1-2 midnights for diuresis/abx Review Statement Review Statement: I have personally discussed and reviewed the patient's visit/currently labs/imaging/decision making with Dr. Ramirez, my supervising attending. Greater that 50 minutes spent with patient, 50% of the time spent with this patient was devoted to counseling and coordination of care.
[2023-06-03] MEDS: HUMALOG SUBCUT PRN (18:08)
[2023-06-04 05:37] LABS: BASOPHILS % (AUTO) 0.3 % (0.0-3.0); EOSINOPHILS # (AUTO) 0.1 K/ul (0.0-0.7); EOSINOPHILS % (AUTO) 1.3 % (0.0-7.0); HEMATOCRIT 28.8 % (42.0-52.0); HEMOGLOBIN 8.4 g/dl (14.0-18.0); IMMATURE GRANULOCYTE # (AUTO) 0.1 (0.0-1.0); IMMATURE GRANULOCYTE % (AUTO) 0.7 % (0.0-5.0); LYMPHOCYTES % (AUTO) 9.2 (10.0-50.0); MEAN CORPUSCULAR HEMOGLOBIN 27.4 pg (27.0-31.0); MEAN CORPUSCULAR HGB CONC 29.2 (31.8-35.4); MEAN CORPUSCULAR VOLUME 93.8 fl (80.0-94.0); MONOCYTES # (AUTO) 0.9 K/uL (0.4-2.0); MONOCYTES % (AUTO) 8.7 (0-10); NEUTROPHILS # (AUTO) 8.5 K/ul (2.0-6.9); NEUTROPHILS % (AUTO) 79.8 % (42.2-75.2); PLATELET COUNT 403 10^3/uL (140-440); RDW COEFFICIENT OF VARIATION 16.1 % (11.6-14.8); RED BLOOD COUNT 3.07 10^6/ul (4.70-6.10); WHITE BLOOD COUNT 10.59 K/ul (4.2-10.2)
[2023-06-04 05:50] LABS: PROTHROMBIN TIME 11.2 SEC (9.3-11.0)
[2023-06-04 05:51] LABS: ALANINE AMINOTRANSFERASE 9.5 U/L (0-50); ALBUMIN 2.97 g/dL (3.5-5.0); ALKALINE PHOSPHATASE 65.2 U/L (56-119); ASPARTATE AMINO TRANSFERASE 23.7 U/L (17-59); BILIRUBIN,TOTAL 1.02 mg/dL (0.2-1.3); BLOOD UREA NITROGEN 18.1 mg/dL (9-20); CALCIUM 7.31 mg/dL (8.4-10.2); CHLORIDE 88.8 mmol/L (98-107); CREATININE 1.06 mg/dL (0.60-1.10); GLUCOSE 106.9 mg/dL (74-106); POTASSIUM 3.56 mmol/L (3.5-5.1); SODIUM 132.1 mmol/L (134.5-145); TOTAL PROTEIN 6.56 g/dL (6.3-8.2)
[2023-06-04 06:03] LABS: CARBON DIOXIDE 40.8 mmol/L (22-30.0)
[2023-06-04] MEDS: COREG PO SCH (07:43)
--- NOTE | 2023-06-04 09:51 | PCM.PROG ---
Date/Time Seen Date Seen by Provider: 06/04/23 Time Seen by Provider: 08:30 Provider Provider: [facility] DOMINIQUE [facility] Chief Complaint Chief Complaint: ANEMIA Subjective Subjective: Patient feels ok today. Wants to go home when discharged. Discussed needing to work on transfers to wheelchair so his caregivers can care for him. He states his pain is improved. Objective Appearance: Positive No Apparent Distress, Alert and Oriented x3 and Other (+chronically ill appearing ) Chest/Lungs: Positive Clear to Auscultation Bilaterally; Negative Rales, Rhonci or Wheezes Heart: Positive RRR GI/: Positive Soft, Nontender, Bowel Sounds Normal and No Distention Musculoskeletal: Positive Other (RLE - erythema of extremity knee down, circumferential, continues to be improved today. 2+ pitting edema luc, mildly improved. Right sided lateral hematoma with sloughing of the skin superficially, seeping. No pain out of proportion. ) Neurological: Positive Cranial Nerves Intact, Alert, Oriented and Other (+generalized weakness ) Vital Signs Vital Signs: Vital Signs: Last 24 Hours 06/03/23 10:00 06/03/23 10:00 06/03/23 10:53 Temperature 97.5 F L Temperature Source Temporal Artery Scan Pulse Rate 80 Pulse Rate [Right Radial] Respiratory Rate 18 Blood Pressure 95/51 L Blood Pressure Mean 65 Blood Pressure Location Right Arm Blood Pressure Position Sitting O2 Sat by Pulse Oximetry 93 L Oxygen Delivery Method Nasal Cannula Nasal Cannula Nasal Cannula Oxygen Flow Rate 2 Weight Telemetry Type Telemetry Monitoring Telemetry Heart Rate EKG KS Interval EKG QRS Interval Telemetry Strip Reading 06/03/23 12:00 06/03/23 13:00 06/03/23 13:00 Temperature Temperature Source Pulse Rate Pulse Rate [Right Radial] Respiratory Rate Blood Pressure Blood Pressure Mean Blood Pressure Location Blood Pressure Position O2 Sat by Pulse Oximetry Oxygen Delivery Method Nasal Cannula Nasal Cannula Oxygen Flow Rate Weight Telemetry Type Remote Telemetry Telemetry Monitoring Continues Telemetry Heart Rate 83 EKG KS Interval 0.15 EKG QRS Interval 0.12 H Telemetry Strip Reading SR with BBB 06/03/23 13:59 06/03/23 13:59 06/03/23 14:00 Temperature 97.5 F L Temperature Source Temporal Artery Scan Pulse Rate 82 Pulse Rate [Right Radial] Respiratory Rate 24 H Blood Pressure 90/56 L Blood Pressure Mean 67 Blood Pressure Location Right Arm Blood Pressure Position O2 Sat by Pulse Oximetry 95 94 L Oxygen Delivery Method Nasal Cannula Room Air Nasal Cannula Oxygen Flow Rate 2 Weight Telemetry Type Telemetry Monitoring Telemetry Heart Rate EKG KS Interval EKG QRS Interval Telemetry Strip Reading 06/03/23 15:00 06/03/23 15:59 06/03/23 17:00 Temperature Temperature Source Pulse Rate Pulse Rate [Right Radial] Respiratory Rate Blood Pressure Blood Pressure Mean Blood Pressure Location Blood Pressure Position O2 Sat by Pulse Oximetry Oxygen Delivery Method Room Air Room Air Room Air Oxygen Flow Rate Weight Telemetry Type Telemetry Monitoring Telemetry Heart Rate EKG KS Interval EKG QRS Interval Telemetry Strip Reading 06/03/23 17:53 06/03/23 18:00 06/03/23 19:00 Temperature 97.5 F L Temperature Source Temporal Artery Scan Pulse Rate 72 Pulse Rate [Right Radial] Respiratory Rate 16 Blood Pressure 96/69 Blood Pressure Mean 78 Blood Pressure Location Blood Pressure Position O2 Sat by Pulse Oximetry 94 L Oxygen Delivery Method Room Air Nasal Cannula Nasal Cannula Oxygen Flow Rate 2 Weight Telemetry Type Telemetry Monitoring Telemetry Heart Rate EKG KS Interval EKG QRS Interval Telemetry Strip Reading 06/03/23 19:00 06/03/23 20:00 06/03/23 20:00 Temperature Temperature Source Pulse Rate Pulse Rate [Right Radial] Respiratory Rate Blood Pressure Blood Pressure Mean Blood Pressure Location Blood Pressure Position O2 Sat by Pulse Oximetry Oxygen Delivery Method Nasal Cannula Nasal Cannula Oxygen Flow Rate 2 Weight Telemetry Type Remote Telemetry Telemetry Monitoring Continues Telemetry Heart Rate 70 EKG KS Interval 0.17 EKG QRS Interval 0.09 Telemetry Strip Reading sinus rhythm 06/03/23 20:37 06/03/23 20:47 06/03/23 21:00 Temperature 97.5 F L Temperature Source Temporal Artery Scan Pulse Rate 79 Pulse Rate [Right Radial] Respiratory Rate 16 Blood Pressure 95/64 Blood Pressure Mean 74 Blood Pressure Location Left Arm Blood Pressure Position Supine O2 Sat by Pulse Oximetry 95 98 Oxygen Delivery Method Nasal Cannula Nebulizer Treatment Nasal Cannula Oxygen Flow Rate 2 Weight Telemetry Type Telemetry Monitoring Telemetry Heart Rate EKG KS Interval EKG QRS Interval Telemetry Strip Reading 06/03/23 22:00 06/03/23 23:00 06/04/23 00:00 Temperature Temperature Source Pulse Rate Pulse Rate [Right Radial] Respiratory Rate Blood Pressure Blood Pressure Mean Blood Pressure Location Blood Pressure Position O2 Sat by Pulse Oximetry Oxygen Delivery Method Nasal Cannula Nasal Cannula Nasal Cannula Oxygen Flow Rate Weight Telemetry Type Telemetry Monitoring Telemetry Heart Rate EKG KS Interval EKG QRS Interval Telemetry Strip Reading 06/04/23 00:46 06/04/23 01:00 06/04/23 02:00 Temperature Temperature Source Pulse Rate 87 Pulse Rate [Right Radial] Respiratory Rate 22 H Blood Pressure 112/74 Blood Pressure Mean 86 Blood Pressure Location Left Arm Blood Pressure Position Supine O2 Sat by Pulse Oximetry 95 Oxygen Delivery Method Nasal Cannula Nasal Cannula Oxygen Flow Rate 2 Weight Telemetry Type Remote Telemetry Telemetry Monitoring Continues Telemetry Heart Rate 82 EKG KS Interval 0.14 EKG QRS Interval 0.10 Telemetry Strip Reading SINUS RHYTHM 06/04/23 02:00 06/04/23 03:00 06/04/23 04:00 Temperature Temperature Source Pulse Rate Pulse Rate [Right Radial] Respiratory Rate Blood Pressure Blood Pressure Mean Blood Pressure Location Blood Pressure Position O2 Sat by Pulse Oximetry Oxygen Delivery Method Nasal Cannula Nasal Cannula Nasal Cannula Oxygen Flow Rate Weight Telemetry Type Telemetry Monitoring Telemetry Heart Rate EKG KS Interval EKG QRS Interval Telemetry Strip Reading 06/04/23 05:00 06/04/23 05:10 06/04/23 05:24 Temperature 97.2 F L Temperature Source Temporal Artery Scan Pulse Rate 88 Pulse Rate [Right Radial] Respiratory Rate 19 Blood Pressure 114/70 Blood Pressure Mean 84 Blood Pressure Location Left Arm Blood Pressure Position Supine O2 Sat by Pulse Oximetry 94 L 94 L Oxygen Delivery Method Nasal Cannula Nasal Cannula Nasal Cannula Oxygen Flow Rate 3 2 Weight Telemetry Type Telemetry Monitoring Telemetry Heart Rate EKG KS Interval EKG QRS Interval Telemetry Strip Reading 06/04/23 05:27 06/04/23 05:39 06/04/23 07:00 Temperature Temperature Source Pulse Rate Pulse Rate [Right Radial] Respiratory Rate Blood Pressure Blood Pressure Mean Blood Pressure Location Blood Pressure Position O2 Sat by Pulse Oximetry Oxygen Delivery Method Nasal Cannula Oxygen Flow Rate Weight 222 lb 7 oz Telemetry Type Remote Telemetry Telemetry Monitoring Continues Telemetry Heart Rate 86 EKG KS Interval 0.14 EKG QRS Interval 0.09 Telemetry Strip Reading SR with PACs 06/04/23 07:00 06/04/23 08:00 Temperature Temperature Source Pulse Rate Pulse Rate [Right Radial] 84 Respiratory Rate 20 Blood Pressure Blood Pressure Mean Blood Pressure Location Blood Pressure Position O2 Sat by Pulse Oximetry Oxygen Delivery Method Nasal Cannula Nasal Cannula Oxygen Flow Rate 2 Weight Telemetry Type Telemetry Monitoring Telemetry Heart Rate EKG KS Interval EKG QRS Interval Telemetry Strip Reading Lab Results Lab Results: Lab Results: Last 24 Hours 06/04/23 05:08 WBC 10.59 H RBC 3.07 L Hgb 8.4 L Hct 28.8 L MCV 93.8 MCH 27.4 MCHC 29.2 L RDW Coeff of Leonardo 16.1 H Plt Count 403 Immature Gran % (Auto) 0.7 Neut % (Auto) 79.8 H Lymph % (Auto) 9.2 L [place] % (Auto) 8.7 Eos % (Auto) 1.3 Baso % (Auto) 0.3 Neut # (Auto) 8.5 H Lymph # (Auto) 1.0 [place] # (Auto) 0.9 Eos # (Auto) 0.1 Baso # (Auto) 0.0 Immature Gran # (Auto) 0.1 PT 11.2 H INR 1.08 Sodium 132.1 L Potassium 3.56 Chloride 88.8 L Carbon Dioxide 40.8 H* Anion Gap 6.06 BUN 18.1 Creatinine 1.06 Estimated GFR (MDRD) 66.00 BUN/Creatinine Ratio 17.07 Glucose 106.9 H Calcium 7.31 L Total Bilirubin 1.02 AST 23.7 ALT 9.5 Alkaline Phosphatase 65.2 Total Protein 6.56 Albumin 2.97 L Globulin 3.59 Albumin/Globulin Ratio 0.82 Additional Comments Additional Comments: I have independently reviewed and interpreted the labs/EKGs/imaging ordered during this hospital stay. I have reviewed outside records that are available in our EMR that pertain to medical stay including imaging/notes/labs from previous visits. Active Medications Active Medications: Medications Generic Name Dose Route Start Last Admin Trade Name Freq PRN Reason Stop Dose Admin Acetaminophen 650 mg 06/02/23 12:58 Acetaminophen 325 Mg Tablet PO Q4H PRN Mild Pain Albuterol/Ipratropium 3 ml 06/02/23 20:00 06/04/23 05:10 Ipratropium/Albuterol Vial.Neb NEB 3 ml RTQID PATRICIA Administration Allopurinol 200 mg 06/03/23 09:00 06/04/23 09:06 Allopurinol 100 Mg Tablet PO 200 mg DAILY PATRICIA Administration Budesonide 1 mg 06/02/23 21:00 06/03/23 20:46 Budesonide 1 Mg/2 Ml Vial.Neb NEB 1 mg BEDTIME PATRICIA Administration Bupropion HCl 75 mg 06/03/23 09:00 06/04/23 09:06 Bupropion Hcl 75 Mg Tablet PO 75 mg DAILY PATRICIA Administration Carvedilol 3.125 mg 06/04/23 07:30 06/04/23 07:43 Carvedilol 3.125 Mg Tablet PO 3.125 mg DAILYWM2 PATRICIA Administration Escitalopram Oxalate 20 mg 06/03/23 09:00 06/04/23 09:06 Escitalopram Oxalate 10 Mg Tablet PO 20 mg DAILY PATRICIA Administration Furosemide 40 mg 06/02/23 17:25 06/04/23 09:06 Furosemide Inj 40 Mg/4 Ml Vial IVP 40 mg Q8H PATRICIA Administration Cefazolin Sodium/Dextrose 2 gm in 100 mls @ 150 mls/hr 06/02/23 13:10 06/04/23 05:12 Ancef 1 Gm/50 Ml D5w IV 06/05/23 13:09 150 mls/hr Q8HR PATRICIA Administration Insulin Human Lispro 0 unit 06/02/23 12:58 06/03/23 18:08 Insulin Lispro 100 Unit/Ml Vial SUBCUT 2 unit PRN PRN Administration Hyperglycemia Protocol Levothyroxine Sodium 100 mcg 06/03/23 06:00 06/04/23 05:12 Levothyroxine Sodium 100 Mcg Tablet PO 100 mcg QDAC2 PATRICIA Administration Lorazepam 1 mg 06/02/23 21:00 06/03/23 21:42 Lorazepam 1 Mg Tablet PO 1 mg BEDTIME PATRICIA Administration Morphine Sulfate 2 mg 06/02/23 17:41 06/03/23 09:26 Morphine Sulfate 2 Mg/Ml Syringe IVP 2 mg Q6H PRN Administration Pain Omeprazole 40 mg 06/03/23 06:00 06/04/23 05:11 Omeprazole 20 Mg Capsule.Dr PO 40 mg QDAC2 PATRICIA Administration Ondansetron HCl 4 mg 06/02/23 12:58 Ondansetron Hcl/Pf 4 Mg/2 Ml Sdv IVP Q6H PRN Nausea / Vomiting Pravastatin Sodium 40 mg 06/02/23 21:00 06/03/23 21:42 Pravastatin Sodium 40 Mg Tablet PO 40 mg BEDTIME PATRICIA Administration Prednisone 5 mg 06/03/23 07:30 06/04/23 07:43 Prednisone 5 Mg Tablet PO 5 mg DAILYWM2 PATRICIA Administration Sodium Chloride 1 syr 06/03/23 05:00 06/04/23 05:11 0.9% Sodium Chloride 10 Ml Disp.Syrin IVF 1 syr Q8HR PATRICIA Administration Sodium Chloride 1 syr 06/03/23 09:24 06/03/23 16:50 0.9% Sodium Chloride 10 Ml Disp.Syrin IVF 1 syr PRN PRN Administration Maintain IV Patency Spironolactone 25 mg 06/03/23 09:00 06/04/23 09:06 Spironolactone 25 Mg Tablet PO 25 mg DAILY PATRICIA Administration Tamsulosin HCl 0.4 mg 06/03/23 09:00 06/04/23 09:06 Tamsulosin Hcl 0.4 Mg Cap.Er.24h PO 0.4 mg DAILY PATRICIA Administration Plan Plan: 1. Acute on chronic anemia in setting of right lower ext hematoma - Improved, s/p 2U PRBCs given on 06/01, hold eliquis. 2. Cellulitis RLE in setting of injury/hematoma - Improved. Cefazolin 2 mg q8rhs ordered, mrsa swab. Consider outpatient wound care referral. 3. Acute on chronic heart failure exacerbation - Improved, 2+ pitting edema. Lasix 40 mg q8hrs. Has had 4L out. 4. COPD with chronic respiratory failure - Not in acute exacerbation. Cont home meds. 5. Hx of PEs - Hold eliquis 6. Hypertension - Cont home meds 7. Hypothyroidism - Cont home meds 8. BPH - Cont home meds 9. Hyperlipidemia - Cont home meds 10. Hypokalemia - Resolved 11. DMT2 - Hold metformin. Humalog ss. DVT Prophylaxis: Holding in light of anemia/hematoma. Dispo: Will require another 1-2 midnights for diuresis/abx Review Statement Review Statement: I have personally discussed and reviewed the patient's visit/currently labs/imaging/decision making with Dr. Ramirez, my supervising attending. Greater that 50 minutes spent with patient, 50% of the time spent with this patient was devoted to counseling and coordination of care.
[2023-06-04] MEDS: K-DUR PO ONE (14:11)
[2023-06-05 05:49] LABS: BASOPHILS % (AUTO) 0.3 % (0.0-3.0); EOSINOPHILS # (AUTO) 0.2 K/ul (0.0-0.7); EOSINOPHILS % (AUTO) 1.7 % (0.0-7.0); HEMATOCRIT 28.4 % (42.0-52.0); HEMOGLOBIN 8.3 g/dl (14.0-18.0); IMMATURE GRANULOCYTE # (AUTO) 0.1 (0.0-1.0); IMMATURE GRANULOCYTE % (AUTO) 0.6 % (0.0-5.0); LYMPHOCYTES # (AUTO) 1.1 K/uL (0.60-3.4); LYMPHOCYTES % (AUTO) 9.3 (10.0-50.0); MEAN CORPUSCULAR HEMOGLOBIN 27.8 pg (27.0-31.0); MEAN CORPUSCULAR HGB CONC 29.2 (31.8-35.4); MONOCYTES # (AUTO) 0.9 K/uL (0.4-2.0); MONOCYTES % (AUTO) 8.2 (0-10); NEUTROPHILS # (AUTO) 9.1 K/ul (2.0-6.9); NEUTROPHILS % (AUTO) 79.9 % (42.2-75.2); PLATELET COUNT 416 10^3/uL (140-440); RDW COEFFICIENT OF VARIATION 15.9 % (11.6-14.8); RED BLOOD COUNT 2.99 10^6/ul (4.70-6.10); WHITE BLOOD COUNT 11.41 K/ul (4.2-10.2)
[2023-06-05 06:09] LABS: ALBUMIN 3.05 g/dL (3.5-5.0); ALKALINE PHOSPHATASE 67.1 U/L (56-119); ASPARTATE AMINO TRANSFERASE 26.1 U/L (17-59); BILIRUBIN,TOTAL 1.01 mg/dL (0.2-1.3); BLOOD UREA NITROGEN 17.5 mg/dL (9-20); CALCIUM 7.37 mg/dL (8.4-10.2); CHLORIDE 88.2 mmol/L (98-107); CREATININE 1.09 mg/dL (0.60-1.10); GLUCOSE 106.9 mg/dL (74-106); POTASSIUM 3.53 mmol/L (3.5-5.1); SODIUM 129.7 mmol/L (134.5-145); TOTAL PROTEIN 6.64 g/dL (6.3-8.2)
[2023-06-05 06:16] LABS: CARBON DIOXIDE 35.4 mmol/L (22-30.0)
--- NOTE | 2023-06-05 11:05 | DCSUM ---
Admission Date Admission Date: 06/02/23 Discharge Date Discharge Date: 06/05/23 Admission Diagnosis Admission Diagnosis: 1. Acute on chronic anemia in setting of right lower ext hematoma 2. Cellulitis RLE in setting of injury/hematoma 3. Acute on chronic heart failure exacerbation Discharge Diagnosis Discharge Diagnosis: 1. Acute on chronic anemia in setting of right lower ext hematoma - resolved 2. Cellulitis RLE in setting of injury/hematoma - improved 3. Acute on chronic heart failure exacerbation - resolved 4. COPD with chronic respiratory failure 5. Hx of PEs 6. Hypertension 7. Hypothyroidism 8. BPH 9. Hyperlipidemia 10. Hypokalemia - Resolved 11. DMT2 - Hospital Provider Hospital Provider: DERICK DOMINIQUE [facility]-C, [facility] Primary Care Physician Primary Care Physician: MACKENZIE FUENTES MD Summary of History and Physical Summary of History and Physical: Patient is a 88 year old male with pmhx of anemia, chronic anticoagulation, COPD with chronic respiratory failure, CKD, gout, hypertension, CHF who presents to the ER with hematoma. Patient was in his wheelchair on Monday 05/29 and bumped his right leg. He presented to ER on 05/[address] showed a large hematoma. Otherwise no abnormalities. He was discharged with keflex. Patient has continued to have worsened swelling and redness of RLE. Complains of pain. Per ERP, the hematoma area is unchanged since first visit. Hgb has trended down to 6.7. Patient admitted to [facility]. Hospital Course Subjective: Patient was treated with cefazolin for cellulitis, mrsa swab negative. Eliquis was held due to hematoma and anemia. S/p 2U prbcs. Hgb has been stable since. Lasix IV given for fluid overload. Edema improved, seems likely at baseline. Pt has diuresed about 4.5-5L. Patient has some sloughing of the skin where the hematoma has pooled, it has continued to seep bloody fluid. Concern with his chronic edema and diabetes about jail healing. Concerned this area may eventually ulcerate. Wound care apt set up for 06/11/23 to monitor area. Pt wanting to go home today. Na low at 129 but likely due to diuresis. Recommend repeat bmp and H&H at f/u. Pt declines long-term. Home health ordered and wheelchair ordered for pt per caregivers request. Discharged on keflex QID x5 more days, restart eliquis. Patient would benefit from home health services - SN, PT, OT due to his mobility issues and hematoma/wound. Patient would benefit from a wheelchair due to his limited mobility, COPD with chronic respiratory failure, and CHF. Appearance: Pleasant, No Apparent Distress, Alert and Other (+chronically ill appearing ) HEENT: MMM and Supple CVS: No Murmur Abdomen: Soft, Non-Tender and No Distention Respiratory: No Accessory Muscle Use Extremities: Other (+chronic peripheral edema, 2-3+ currently. ) Additional Findings: RLE - erythema of extremity below knee down, circumferential, continues to be improved today. Warmth improved. 2-3+ pitting edema luc, improved overall from admission. Right sided lateral hematoma with sloughing of the skin superficially, seeping. No pain out of proportion. Vital Signs: Most Recent Vital Signs Temperature 97.4 F L 06/05/23 10:00 Temperature Source Tympanic 06/05/23 10:00 Temperature Source Oral 06/02/23 09:51 Pulse Rate 96 06/05/23 10:00 Respiratory Rate 20 06/05/23 10:00 Blood Pressure 91/57 L 06/05/23 10:00 Blood Pressure Mean 68 06/05/23 10:00 Blood Pressure Right Arm 112/63 06/02/23 12:33 Blood Pressure Location Left Arm 06/05/23 10:00 Blood Pressure Position Sitting 06/05/23 10:00 O2 Sat by Pulse Oximetry 93 L 06/05/23 10:00 Oxygen Delivery Method Nasal Cannula 06/05/23 10:00 Oxygen Flow Rate 2 06/05/23 10:00 Height 6 ft 06/04/23 09:51 Weight 221 lb 06/05/23 06:00 Telemetry Type Remote Telemetry 06/05/23 07:00 Telemetry Monitoring Continues 06/05/23 07:00 Irregular Telemetry Rate (Approximate) 90-100 BPM 06/05/23 07:00 Telemetry Heart Rate 87 06/05/23 01:00 Telemetry SPO2 94 02/05/23 07:00 EKG NV Interval 0.14 06/05/23 07:00 EKG QRS Interval 0.09 06/05/23 07:00 Telemetry Strip Reading SR 06/05/23 07:00 Imaging: EXAM: CT RIGHT ANKLE WITH CONTRAST HISTORY: Injury, bruising, edema COMPARISON: None. FINDINGS: Axial CT images of the right ankle with IV contrast and with multiplanar reformatted images. No discrete fracture line. No dislocation. Degenerative changes to the ankle and imaged midfoot. Extensive superficial soft tissue edema and skin thickening about the lower leg, ankle and imaged foot. Soft tissue edema and skin thickening in the left lower leg, partially imaged. Lobulated, hyperattenuating collection centered in the lateral subcutaneous soft tissues measuring approximately 18 cm cranial-caudal by 12 cm AP and up to 4 cm in depth. Atrophy of the lower leg muscles. Vascular calcifications. IMPRESSION: Extensive superficial soft tissue edema and skin thickening about the right lower leg, ankle and foot. The appearance is nonspecific but can be seen with cellulitis. 18 x 12 cm hyperattenuating collection centered in the lateral subcutaneous and superficial soft tissues of the lateral lower leg. The appearance is suggestive of hematoma although other etiologies are not excludable. Clinical follow-up to ensure resolution and exclude other etiology. Superficial soft tissue edema and skin thickening involving the imaged left lower leg. Please see above description and additional findings. Lab Results Last 24 Hours: 06/05/23 05:22 WBC 11.41 H RBC 2.99 L Hgb 8.3 L Hct 28.4 L MCV 95.0 H MCH 27.8 MCHC 29.2 L RDW Coeff of Leonardo 15.9 H Plt Count 416 Immature Gran % (Auto) 0.6 Neut % (Auto) 79.9 H Lymph % (Auto) 9.3 L Dawson % (Auto) 8.2 Eos % (Auto) 1.7 Baso % (Auto) 0.3 Neut # (Auto) 9.1 H Lymph # (Auto) 1.1 Dawson # (Auto) 0.9 Eos # (Auto) 0.2 Baso # (Auto) 0.0 Immature Gran # (Auto) 0.1 Sodium 129.7 L Potassium 3.53 Chloride 88.2 L Carbon Dioxide 35.4 H Anion Gap 9.63 BUN 17.5 Creatinine 1.09 Estimated GFR (MDRD) 64.00 BUN/Creatinine Ratio 16.05 Glucose 106.9 H Calcium 7.37 L Total Bilirubin 1.01 AST 26.1 ALT 8.0 Alkaline Phosphatase 67.1 Total Protein 6.64 Albumin 3.05 L Globulin 3.59 Albumin/Globulin Ratio 0.84 Discharge Instructions Discharge Planning: Discharge Planning > [address] Magaly Fuentes. Discharge Medications: Medications at Discharge (Home Meds & RX) Discharge Plan Discharge Discharge Orders: Discharge Patient (ONCE); Ordered 06/05/23 Ordered By: DERICK DOMINIQUE Activity Restrictions/Additional Instructions: DISCHARGE TO HOME HOME HEALTH ORDERED DX: CELLULITIS RLE, HEMATOMA, EDEMA PHARMACY: [facility] TAKE PROBIOTIC, OVER THE COUNTER F/U WITH WOUND CARE - CONCERN FOR HEALING GIVEN HIS CHRONIC SWELLING AND DIABETES KEEP AREA CLEAN AND DRY THE BEST YOU CAN, WASH GENTLY DAILY WITH WARM WATER AND PLAIN SOAP CONTINUE ELIQUIS RECOMMEND REPEAT H&H AND BMP AT PCP F/U YOU HAVE A WOUND CARE APPOINTMENT SCHEDULED FOR THURSDAY, May AT 11AM AT [facility]. SHOULD YOU HAVE ANY QUESTIONS OR NEED TO RESCHEDULE YOU CAN CONTACT THEM AT [phone]. Instructions: Hypokalemia (DC), Chronic Wound Care (DC), Anemia (DC) Care Plan Goals: Problem: Impaired Skin Integrity Goal: Improve skin integrity Instructions: Ambulate or up to chair as tolerated Increase oral intake if indicated Diet consult if indicated Keep bedding and clothing warm/dry Apply aloe vesta cream as neededProblem: Impaired Mobility Goal: Demonstrates improved mobility Instructions: Gradually increase activity as tolerated Assistance devices as indicated Notify provider of declines in mobilityProblem: Risk for falls Goal: No falls or injury Instructions: Have no throw rugs on the floor Make sure pathway is clear of all objects Use assistance devices if applicable Patient Disposition: HOME WITH FAMILY CARE Prescriptions: Continued ipratropium-albuterol 0.5 mg-3 mg(2.5 mg base)/3 mL solution for nebulization See Rx Instructions .ROUTE .COMPLEX Qty: 360 10RF Dose Instruction: INHALE ONE (1) VIAL 4 TIMES DAILY Rx Instructions: INHALE ONE (1) VIAL 4 TIMES DAILY budesonide 1 mg/2 mL suspension for nebulization See Rx Instructions .ROUTE .COMPLEX Qty: 60 10RF Dose Instruction: USE ONE (1) VIAL PER NEBULIZER AT BEDTIME Rx Instructions: USE ONE (1) VIAL PER NEBULIZER AT BEDTIME prednisone 5 mg tablet See Rx Instructions .ROUTE .COMPLEX Qty: 90 7RF Dose Instruction: TAKE ONE (1) TABLET BY MOUTH DAILY Rx Instructions: TAKE ONE (1) TABLET BY MOUTH DAILY pravastatin 40 mg tablet See Rx Instructions .ROUTE .COMPLEX Qty: 90 7RF Dose Instruction: TAKE ONE (1) TABLET BY MOUTH DAILY AT BEDTIME Rx Instructions: TAKE ONE (1) TABLET BY MOUTH DAILY AT BEDTIME furosemide 40 mg tablet See Rx Instructions .ROUTE .COMPLEX Qty: 90 7RF Dose Instruction: TAKE ONE (1) TABLET BY MOUTH DAILY Rx Instructions: TAKE ONE (1) TABLET BY MOUTH DAILY levothyroxine 100 mcg tablet See Rx Instructions .ROUTE .COMPLEX Qty: 90 7RF Dose Instruction: TAKE ONE (1) TABLET BY MOUTH DAILY Rx Instructions: TAKE ONE (1) TABLET BY MOUTH DAILY spironolactone 25 mg tablet See Rx Instructions .ROUTE .COMPLEX Qty: 90 7RF Dose Instruction: TAKE ONE (1) TABLET BY MOUTH DAILY Rx Instructions: TAKE ONE (1) TABLET BY MOUTH DAILY allopurinol 100 mg tablet See Rx Instructions .ROUTE .COMPLEX Qty: 180 1RF Dose Instruction: TAKE 2 TABLETS BY MOUTH DAILY Rx Instructions: TAKE 2 TABLETS BY MOUTH DAILY lorazepam 1 mg tablet 1 mg PO QHS Qty: 90 1RF omeprazole 40 mg capsule,delayed release(DR/EC) See Rx Instructions .ROUTE .COMPLEX Qty: 90 1RF Dose Instruction: TAKE ONE (1) CAPSULE BY MOUTH DAILY Rx Instructions: TAKE ONE (1) CAPSULE BY MOUTH DAILY metformin 500 mg tablet See Rx Instructions .ROUTE .COMPLEX Qty: 90 1RF Dose Instruction: TAKE ONE (1) TABLET BY MOUTH DAILY Rx Instructions: TAKE ONE (1) TABLET BY MOUTH DAILY carvedilol 3.125 mg tablet See Rx Instructions .ROUTE .COMPLEX Qty: 90 1RF Dose Instruction: TAKE ONE (1) TABLET BY MOUTH EVERY MORNING Rx Instructions: TAKE ONE (1) TABLET BY MOUTH EVERY MORNING tamsulosin 0.4 mg capsule See Rx Instructions .ROUTE .COMPLEX Qty: 90 1RF Dose Instruction: TAKE ONE (1) CAPSULE BY MOUTH DAILY Rx Instructions: TAKE ONE (1) CAPSULE BY MOUTH DAILY escitalopram oxalate 20 mg tablet See Rx Instructions .ROUTE .COMPLEX Qty: 90 1RF Dose Instruction: TAKE ONE (1) TABLET BY MOUTH DAILY Rx Instructions: TAKE ONE (1) TABLET BY MOUTH DAILY bupropion HCl 75 mg tablet See Rx Instructions .ROUTE .COMPLEX Qty: 30 3RF Dose Instruction: TAKE ONE (1) TABLET BY MOUTH DAILY Rx Instructions: TAKE ONE (1) TABLET BY MOUTH DAILY Eliquis 5 mg tablet See Rx Instructions .ROUTE .COMPLEX Qty: 60 3RF Dose Instruction: TAKE ONE (1) BY MOUTH TWICE DAILY Rx Instructions: TAKE ONE (1) BY MOUTH TWICE DAILY mupirocin 2 % ointment 1 applic topical TID PRN (Reason: decubitus) Qty: 22 4RF Changed cephalexin 500 mg capsule 500 mg PO QID 5 Days Qty: 20 0RF Did you review [place] [employer] for ALL controlled substances?: Not Applicable Discussed opioids are addictive and Narcan is available by prescription or from pharmacy.: No Condition: Stable Referrals: MACKENZIE FUENTES MD [Primary Care Provider] - 06/10/23 1:40 pm
[2023-06-05 14:10] VITALS: BP 92/62; PULSE 79; RESP 16; TEMP 97.8
== END 2023-06-05 14:49 | disposition home health service (06) ==
LOC: MEDSURG B 09:49 → ED 09:49 → MEDSURG B 12:11
PROVIDERS: ADMIT Hospitalist; ATTEND Physician Assistant

== ENCOUNTER 2023-06-11 11:00 | Inpatient (IN) ==
[2023-06-11 11:59] VITALS: BMI 28.6
[2023-06-11] MEDS ORDERED: NITROSTAT SL PRN (12:39)
[2023-06-11] MEDS ORDERED: ATROPINE SULFATE PFS IVP PRN (12:39)
[2023-06-11] MEDS ORDERED: DEXTROSE 50%-WATER ABBOJECT IVP PRN (12:39)
[2023-06-11] MEDS ORDERED: FLOMAX PO SCH (13:00)
[2023-06-11] MEDS ORDERED: PULMICORT 1 MG/2 ML NEB SCH (13:00)
[2023-06-11] MEDS ORDERED: PRAVACHOL PO SCH (13:00)
[2023-06-11] MEDS ORDERED: LEXAPRO PO SCH (13:00)
[2023-06-11] MEDS ORDERED: PRILOSEC PO SCH (13:00)
[2023-06-11] MEDS ORDERED: COREG PO SCH (13:00)
[2023-06-11] MEDS ORDERED: ALDACTONE PO SCH (13:00)
[2023-06-11] MEDS ORDERED: ELIQUIS PO SCH (13:00)
[2023-06-11] MEDS ORDERED: PREDNISONE PO SCH (13:00)
[2023-06-11] MEDS ORDERED: SYNTHROID PO SCH (13:00)
[2023-06-11] MEDS ORDERED: ZYLOPRIM PO SCH (13:00)
[2023-06-11] MEDS ORDERED: GLUCOPHAGE PO SCH (13:00)
[2023-06-11] MEDS ORDERED: DUONEB NEB SCH (13:00)
[2023-06-11] MEDS ORDERED: WELLBUTRIN PO SCH (13:00)
[2023-06-11 13:01] LABS: BASOPHILS % (AUTO) 0.4 % (0.0-3.0); EOSINOPHILS # (AUTO) 0.1 K/ul (0.0-0.7); EOSINOPHILS % (AUTO) 1.4 % (0.0-7.0); HEMATOCRIT 32.4 % (42.0-52.0); HEMOGLOBIN 9.2 g/dl (14.0-18.0); IMMATURE GRANULOCYTE % (AUTO) 0.3 % (0.0-5.0); LYMPHOCYTES # (AUTO) 0.6 K/uL (0.60-3.4); MEAN CORPUSCULAR HEMOGLOBIN 27.7 pg (27.0-31.0); MEAN CORPUSCULAR HGB CONC 28.4 (31.8-35.4); MEAN CORPUSCULAR VOLUME 97.6 fl (80.0-94.0); MONOCYTES # (AUTO) 0.4 K/uL (0.4-2.0); MONOCYTES % (AUTO) 5.6 (0-10); NEUTROPHILS # (AUTO) 6.6 K/ul (2.0-6.9); NEUTROPHILS % (AUTO) 84.3 % (42.2-75.2); PLATELET COUNT 423 10^3/uL (140-440); RDW COEFFICIENT OF VARIATION 15.9 % (11.6-14.8); RED BLOOD COUNT 3.32 10^6/ul (4.70-6.10); WHITE BLOOD COUNT 7.86 K/ul (4.2-10.2)
[2023-06-11 13:10] LABS: ANISOCYTOSIS 1+ (NOT PRESENT); HYPOCHROMASIA 1+ (NOT PRESENT); MICROCYTOSIS 1+ (NOT PRESENT); POIKILOCYTOSIS 1+ (NOT PRESENT); POLYCHROMASIA 1+ (NOT PRESENT)
[2023-06-11 13:13] LABS: ALANINE AMINOTRANSFERASE 13.9 U/L (0-50); ALBUMIN 3.16 g/dL (3.5-5.0); ASPARTATE AMINO TRANSFERASE 38.4 U/L (17-59); BILIRUBIN,TOTAL 0.81 mg/dL (0.2-1.3); BLOOD UREA NITROGEN 19.4 mg/dL (9-20); CALCIUM 8.41 mg/dL (8.4-10.2); CHLORIDE 92.1 mmol/L (98-107); CREATINE KINASE 29.9 U/L (55-170); CREATININE 1.01 mg/dL (0.60-1.10); GLUCOSE 129.3 mg/dL (74-106); TOTAL PROTEIN 7.05 g/dL (6.3-8.2)
[2023-06-11 13:19] LABS: CARBON DIOXIDE 35.9 mmol/L (22-30.0)
[2023-06-11] MEDS: ELIQUIS PO ONE (13:20)
[2023-06-11 13:26] LABS: TROPONIN I < 0.012 ng/ml (0.0000-0.120)
[2023-06-11] MEDS: ROCEPHIN 1 GM/50 ML D5W 1 GM/50 ML BAG IV SCH (13:28)
[2023-06-11] MEDS: LASIX IVP SCH (13:28)
[2023-06-11 14:08] LABS: BILIRUBIN,URINE Negative (NEGATIVE); CLARITY,URINE Clear (CLEAR); COLOR,URINE Yellow (YELLOW); GLUCOSE, URINE (UA) Negative (NEGATIVE); KETONES,URINE Negative (NEGATIVE); LEUKOCYTE ESTERASE ,URINE Negative (NEGATIVE); NITRITE,URINE Negative (NEGATIVE); PROTEIN,URINE 1+ (NEGATIVE); URINE, BLOOD Negative (NEGATIVE)
[2023-06-11 14:17] LABS: RENAL EPITHELIAL CELLS,URINE 0-2 (NOT PRESENT); SQUAMOUS EPITHELIAL CELL,UR NOT PRESENT (0-5)
--- NOTE | 2023-06-11 14:19 | DI ---
EXAM: CHEST RADIOGRAPH TECHNIQUE: Single frontal chest radiograph. HISTORY: Cough. COMPARISON: 02/01/2023 and older studies. FINDINGS: The patient is mildly leaning to the left and rotated to the right. The patient's neck partially obs cures the right apex. EKG leads and oxygen tubing project over the chest. Calcified granuloma of the right lower lung, again noted. Interval development of small to moderate left pleural effusion, with at least mild atelectasis of th e left base. No visible pneumothorax. Heart size is normal. No acute displaced rib fractures are identified. IMPRESSION: 1. Interval development of small to moderate left pleural effusion, with at least mild atelectasis o f the left base. Pneumonia cannot be excluded.
[2023-06-11] MEDS: BACTROBAN TP SCH (14:27)
[2023-06-11] MEDS: DOXY-100 100 MG in SODIUM CHLORIDE 100ML 100 ML IV SCH (14:27)
[2023-06-11] MEDS: LEXAPRO PO SCH (14:50)
[2023-06-11] MEDS: FLONASE NAS SCH (14:50)
[2023-06-11] MEDS: FLOMAX PO SCH (14:50)
[2023-06-11] MEDS: GLUCOPHAGE PO SCH (14:50)
[2023-06-11] MEDS: PREDNISONE PO SCH (14:50)
[2023-06-11] MEDS: ALDACTONE PO SCH (14:50)
[2023-06-11] MEDS: COREG PO SCH (14:50)
[2023-06-11] MEDS: PRILOSEC PO SCH (14:50)
[2023-06-11] MEDS: MULTIVIT MIN FOLIC VIT K LYCOP PO SCH (14:51)
[2023-06-11] MEDS: SYNTHROID PO SCH (14:53)
[2023-06-11] MEDS: WELLBUTRIN PO SCH (15:31)
[2023-06-11] MEDS: ZYLOPRIM PO SCH (15:31)
[2023-06-11] MEDS: DUONEB NEB SCH (15:47)
[2023-06-11] MEDS: PULMICORT 1 MG/2 ML NEB SCH (20:30)
[2023-06-11] MEDS: BETADINE TP SCH (20:45)
[2023-06-11] MEDS: PRAVACHOL PO SCH (20:46)
[2023-06-11] MEDS: ATIVAN PO SCH (20:46)
[2023-06-11 21:01] LABS: CREATINE KINASE 28.1 U/L (55-170)
[2023-06-11 21:15] LABS: TROPONIN I < 0.012 ng/ml (0.0000-0.120)
[2023-06-12 05:44] LABS: BASOPHILS % (AUTO) 0.3 % (0.0-3.0); EOSINOPHILS # (AUTO) 0.1 K/ul (0.0-0.7); EOSINOPHILS % (AUTO) 1.8 % (0.0-7.0); HEMATOCRIT 31.5 % (42.0-52.0); HEMOGLOBIN 8.8 g/dl (14.0-18.0); IMMATURE GRANULOCYTE % (AUTO) 0.3 % (0.0-5.0); LYMPHOCYTES # (AUTO) 1.3 K/uL (0.60-3.4); MEAN CORPUSCULAR HEMOGLOBIN 27.2 pg (27.0-31.0); MEAN CORPUSCULAR HGB CONC 27.9 (31.8-35.4); MEAN CORPUSCULAR VOLUME 97.2 fl (80.0-94.0); MONOCYTES # (AUTO) 0.6 K/uL (0.4-2.0); MONOCYTES % (AUTO) 7.5 (0-10); NEUTROPHILS # (AUTO) 5.5 K/ul (2.0-6.9); NEUTROPHILS % (AUTO) 73.1 % (42.2-75.2); PLATELET COUNT 362 10^3/uL (140-440); RDW COEFFICIENT OF VARIATION 15.9 % (11.6-14.8); RED BLOOD COUNT 3.24 10^6/ul (4.70-6.10); WHITE BLOOD COUNT 7.58 K/ul (4.2-10.2)
[2023-06-12 05:57] LABS: ALANINE AMINOTRANSFERASE 13.8 U/L (0-50); ALBUMIN 3.16 g/dL (3.5-5.0); ALKALINE PHOSPHATASE 70.8 U/L (56-119); ASPARTATE AMINO TRANSFERASE 39.8 U/L (17-59); BILIRUBIN,TOTAL 0.52 mg/dL (0.2-1.3); BLOOD UREA NITROGEN 19.8 mg/dL (9-20); CALCIUM 7.94 mg/dL (8.4-10.2); CARBON DIOXIDE 39.9 mmol/L (22-30.0); CHLORIDE 94.6 mmol/L (98-107); CREATININE 1.03 mg/dL (0.60-1.10); GLUCOSE 101.3 mg/dL (74-106); POTASSIUM 3.96 mmol/L (3.5-5.1); SODIUM 136.5 mmol/L (134.5-145); TOTAL PROTEIN 7.02 g/dL (6.3-8.2)
[2023-06-12 06:04] LABS: ANISOCYTOSIS 1+ (NOT PRESENT); HYPOCHROMASIA 1+ (NOT PRESENT); MICROCYTOSIS 1+ (NOT PRESENT); POIKILOCYTOSIS 1+ (NOT PRESENT)
[2023-06-13 05:18] LABS: BASOPHILS % (AUTO) 0.3 % (0.0-3.0); EOSINOPHILS # (AUTO) 0.2 K/ul (0.0-0.7); EOSINOPHILS % (AUTO) 2.9 % (0.0-7.0); HEMATOCRIT 30.2 % (42.0-52.0); HEMOGLOBIN 8.5 g/dl (14.0-18.0); IMMATURE GRANULOCYTE % (AUTO) 0.5 % (0.0-5.0); LYMPHOCYTES # (AUTO) 1.3 K/uL (0.60-3.4); LYMPHOCYTES % (AUTO) 17.5 (10.0-50.0); MEAN CORPUSCULAR HEMOGLOBIN 27.3 pg (27.0-31.0); MEAN CORPUSCULAR HGB CONC 28.1 (31.8-35.4); MEAN CORPUSCULAR VOLUME 97.1 fl (80.0-94.0); MONOCYTES # (AUTO) 0.5 K/uL (0.4-2.0); MONOCYTES % (AUTO) 6.3 (0-10); NEUTROPHILS # (AUTO) 5.3 K/ul (2.0-6.9); NEUTROPHILS % (AUTO) 72.5 % (42.2-75.2); PLATELET COUNT 357 10^3/uL (140-440); RDW COEFFICIENT OF VARIATION 15.9 % (11.6-14.8); RED BLOOD COUNT 3.11 10^6/ul (4.70-6.10); WHITE BLOOD COUNT 7.32 K/ul (4.2-10.2)
[2023-06-13 05:33] LABS: ALBUMIN 3.05 g/dL (3.5-5.0); ALKALINE PHOSPHATASE 65.6 U/L (56-119); ASPARTATE AMINO TRANSFERASE 37.1 U/L (17-59); BILIRUBIN,TOTAL 0.46 mg/dL (0.2-1.3); BLOOD UREA NITROGEN 23.1 mg/dL (9-20); CALCIUM 7.95 mg/dL (8.4-10.2); CARBON DIOXIDE 38.7 mmol/L (22-30.0); CHLORIDE 97.7 mmol/L (98-107); CREATININE 0.89 mg/dL (0.60-1.10); GLUCOSE 86.9 mg/dL (74-106); POTASSIUM 3.87 mmol/L (3.5-5.1); SODIUM 135.9 mmol/L (134.5-145); TOTAL PROTEIN 6.51 g/dL (6.3-8.2)
[2023-06-13 05:39] LABS: ANISOCYTOSIS 1+ (NOT PRESENT); HYPOCHROMASIA 1+ (NOT PRESENT); POIKILOCYTOSIS 1+ (NOT PRESENT)
[2023-06-14 07:03] LABS: BASOPHILS % (AUTO) 0.3 % (0.0-3.0); EOSINOPHILS # (AUTO) 0.2 K/ul (0.0-0.7); EOSINOPHILS % (AUTO) 2.3 % (0.0-7.0); HEMATOCRIT 31.2 % (42.0-52.0); HEMOGLOBIN 8.7 g/dl (14.0-18.0); IMMATURE GRANULOCYTE % (AUTO) 0.3 % (0.0-5.0); LYMPHOCYTES # (AUTO) 1.2 K/uL (0.60-3.4); LYMPHOCYTES % (AUTO) 16.8 (10.0-50.0); MEAN CORPUSCULAR HEMOGLOBIN 27.3 pg (27.0-31.0); MEAN CORPUSCULAR HGB CONC 27.9 (31.8-35.4); MEAN CORPUSCULAR VOLUME 97.8 fl (80.0-94.0); MONOCYTES # (AUTO) 0.5 K/uL (0.4-2.0); MONOCYTES % (AUTO) 7.1 (0-10); NEUTROPHILS # (AUTO) 5.2 K/ul (2.0-6.9); NEUTROPHILS % (AUTO) 73.2 % (42.2-75.2); PLATELET COUNT 357 10^3/uL (140-440); RDW COEFFICIENT OF VARIATION 15.9 % (11.6-14.8); RED BLOOD COUNT 3.19 10^6/ul (4.70-6.10); WHITE BLOOD COUNT 7.09 K/ul (4.2-10.2)
[2023-06-14 07:32] LABS: ALANINE AMINOTRANSFERASE 14.2 U/L (0-50); ALBUMIN 3.06 g/dL (3.5-5.0); ALKALINE PHOSPHATASE 67.5 U/L (56-119); ASPARTATE AMINO TRANSFERASE 44.5 U/L (17-59); BILIRUBIN,TOTAL 0.59 mg/dL (0.2-1.3); BLOOD UREA NITROGEN 21.4 mg/dL (9-20); CARBON DIOXIDE 35.3 mmol/L (22-30.0); CHLORIDE 100.2 mmol/L (98-107); CREATININE 0.8 mg/dL (0.60-1.10); POTASSIUM 4.18 mmol/L (3.5-5.1); SODIUM 137.4 mmol/L (134.5-145); TOTAL PROTEIN 6.66 g/dL (6.3-8.2)
[2023-06-14] MEDS: DOXYCYCLINE HYCLATE PO SCH (20:22)
[2023-06-15 05:10] LABS: BASOPHILS % (AUTO) 0.5 % (0.0-3.0); EOSINOPHILS # (AUTO) 0.1 K/ul (0.0-0.7); EOSINOPHILS % (AUTO) 1.7 % (0.0-7.0); HEMATOCRIT 29.2 % (42.0-52.0); HEMOGLOBIN 8.2 g/dl (14.0-18.0); IMMATURE GRANULOCYTE % (AUTO) 0.4 % (0.0-5.0); LYMPHOCYTES # (AUTO) 1.3 K/uL (0.60-3.4); LYMPHOCYTES % (AUTO) 16.5 (10.0-50.0); MEAN CORPUSCULAR HEMOGLOBIN 27.2 pg (27.0-31.0); MEAN CORPUSCULAR HGB CONC 28.1 (31.8-35.4); MEAN CORPUSCULAR VOLUME 96.7 fl (80.0-94.0); MONOCYTES # (AUTO) 0.6 K/uL (0.4-2.0); MONOCYTES % (AUTO) 7.8 (0-10); NEUTROPHILS # (AUTO) 5.7 K/ul (2.0-6.9); NEUTROPHILS % (AUTO) 73.1 % (42.2-75.2); PLATELET COUNT 320 10^3/uL (140-440); RDW COEFFICIENT OF VARIATION 16.3 % (11.6-14.8); RED BLOOD COUNT 3.02 10^6/ul (4.70-6.10); WHITE BLOOD COUNT 7.82 K/ul (4.2-10.2)
[2023-06-15 05:24] LABS: ALANINE AMINOTRANSFERASE 15.8 U/L (0-50); ALBUMIN 2.94 g/dL (3.5-5.0); ALKALINE PHOSPHATASE 65.4 U/L (56-119); ASPARTATE AMINO TRANSFERASE 33.5 U/L (17-59); BILIRUBIN,TOTAL 0.42 mg/dL (0.2-1.3); CALCIUM 8.2 mg/dL (8.4-10.2); CHLORIDE 103.5 mmol/L (98-107); CREATININE 0.89 mg/dL (0.60-1.10); GLUCOSE 103.5 mg/dL (74-106); POTASSIUM 4.48 mmol/L (3.5-5.1); SODIUM 137.7 mmol/L (134.5-145); TOTAL PROTEIN 6.4 g/dL (6.3-8.2)
--- NOTE | 2023-06-15 08:29 | PCM.PROG ---
Attending Provider: ATTENDING PROVIDER: Dr. MACKENZIE FUENTES MD This patient is seen with Lizette Latham, Nurse Practitioner. DATE OF SERVICE: 06/15/23 SUBJECTIVE: This 88 year old /WHITE M was hospitalized 06/11/23. No fever. Edema has improved. Still with erythema. Large area of eschar falling off. Hgb down to 8.2. REVIEW OF SYSTEMS: CONSTITUTIONAL: No night sweats. No fatigue, malaise, lethargy. No fever or chills. HEENT: Eyes: No visual changes. No eye pain. No eye discharge. ENT: No runny nose. No epistaxis. No sinus pain. No odynophagia. No congestion. RESPIRATORY: No cough, no congestion. No hemoptysis. No shortness of breath. CARDIOVASCULAR: No angina symptoms. No CHF symptoms. No atypical chest pain for CAD. No palpitations. No orthopnea.. GASTROINTESTINAL: No abdominal pain. No nausea or vomiting. No diarrhea or constipation. No hematemesis. No hematochezia. GENITOURINARY: No urgency. No frequency. No dysuria. No hematuria. No obstructive symptoms. No discharge. No pain. No significant abnormal bleeding. MUSCULOSKELETAL: No musculoskeletal pain; no joint swelling. Weakness. NEUROLOGICAL: Awake, alert, oriented to time, place and person. No headache. No neck pain. No syncope. No seizures. No dizziness. PSYCHIATRIC: Not anxious. No depression. No suicidal thoughts. No homicidal thoughts. SKIN: No rash. No lesions. Right leg wound. ENDOCRINE: No unexplained weight loss. No weight gain. HEMATOLOGIC/LYMPHATIC: No anemia. No purpura. No petechiae. No prolonged or excessive bleeding. No palpable lymph nodes. PHYSICAL EXAMINATION: GENERAL: The patient is awake, alert and oriented, lying in bed in no distress. VITAL SIGNS: Temperature 97 F, Pulse 82, Respiratory Rate 22, BP 121/75, Pulse Ox 96% HEENT: Head normocephalic, atraumatic. Eyes: Extraocular muscles are intact. Pupils are equal, round and reactive to light and accommodation. Ears: No lesions. Nose appeared normal. Throat: No exudate or erythema. NECK: Supple. No JVD, no carotid bruit. No lymphadenopathy or thyromegaly. LUNGS: Diminished breath sounds. Clear to auscultation. Percussion note normal. Chest symmetrical. HEART: S1, S2, no S3. No murmurs. No cyanosis or clubbing. No ascites. Pulses: Dorsalis pedis and posterior tibial pulses +1 to +2 both sides. ABDOMEN: Soft. Non-tender. Bowel sounds active. No CVA tenderness. No mass felt. EXTREMITIES: No edema. Full range of motion of all extremities, equal. NEUROLOGIC: No focal deficit. Cranial nerves II through XII are grossly intact. No headache. No double vision. SKIN: Not dry. Intact. Turgor-normal. Large area anterior and posterior right lower extremity with eschar and surrounding erythema. 3in area are eschar detaching. LYMPHATIC: No palpable lymph nodes/no lymphedema. MUSCULOSKELETAL: Normal joints with no swelling. Muscle tone is normal. LAB REVIEW: 06/15/23 05:00 06/15/23 05:00 06/15/23 05:00: WBC 7.82, RBC 3.02 L, Hgb 8.2 L, Hct 29.2 L, MCV 96.7 H, MCH 27.2, MCHC 28.1 L, RDW Coeff of Leonardo 16.3 H, Plt Count 320, Immature Gran % (Auto) 0.4, Neut % (Auto) 73.1, Lymph % (Auto) 16.5, [place] % (Auto) 7.8, Eos % (Auto) 1.7, Baso % (Auto) 0.5, Neut # (Auto) 5.7, Lymph # (Auto) 1.3, [place] # (Auto) 0.6, Eos # (Auto) 0.1, Baso # (Auto) 0.0, Immature Gran # (Auto) 0.0, Sodium 137.7, Potassium 4.48, Chloride 103.5, Carbon Dioxide 32.0 H, Anion Gap 6.68, BUN 20.0, Creatinine 0.89, Estimated GFR (MDRD) 81.00, BUN/Creatinine Ratio 22.47, Glucose 103.5, Calcium 8.20 L, Total Bilirubin 0.42, AST 33.5, ALT 15.8, Alkaline Phosphatase 65.4, Total Protein 6.40, Albumin 2.94 L, Globulin 3.46, Albumin/Globulin Ratio 0.84 ASSESSMENT: Please see below. 1. Right lower extremity cellulitis and wound 2. Bilateral leg edema 3. Anemia PLAN: 1. Discontinue Prilosec 2. Protonix 40mg IV Q 12 hours 3. Resume Lasix 40mg PO 4. Repeat wound culture on now open area 5. Will consider swing bed for wound care Plan and coordination of the patient's care discussed in the presence of Sign Hanger and nurse. SCRIBED BY: Mauro REDDY scribed while in presence of service performed by Lizette Latham APRN on 06/15/23 ([id number])
[2023-06-15] MEDS: LASIX TAB PO SCH (08:41)
[2023-06-15] MEDS: PROTONIX IVP SCH (09:20)
[2023-06-15] MEDS: TYLENOL PO PRN (13:56)
[2023-06-16 05:15] LABS: BASOPHILS % (AUTO) 0.4 % (0.0-3.0); EOSINOPHILS # (AUTO) 0.2 K/ul (0.0-0.7); EOSINOPHILS % (AUTO) 2.8 % (0.0-7.0); HEMATOCRIT 30.2 % (42.0-52.0); HEMOGLOBIN 8.6 g/dl (14.0-18.0); IMMATURE GRANULOCYTE % (AUTO) 0.2 % (0.0-5.0); LYMPHOCYTES # (AUTO) 1.4 K/uL (0.60-3.4); LYMPHOCYTES % (AUTO) 16.3 (10.0-50.0); MEAN CORPUSCULAR HEMOGLOBIN 27.2 pg (27.0-31.0); MEAN CORPUSCULAR HGB CONC 28.5 (31.8-35.4); MEAN CORPUSCULAR VOLUME 95.6 fl (80.0-94.0); MONOCYTES # (AUTO) 0.6 K/uL (0.4-2.0); MONOCYTES % (AUTO) 7.1 (0-10); NEUTROPHILS # (AUTO) 6.1 K/ul (2.0-6.9); NEUTROPHILS % (AUTO) 73.2 % (42.2-75.2); PLATELET COUNT 312 10^3/uL (140-440); RDW COEFFICIENT OF VARIATION 15.9 % (11.6-14.8); RED BLOOD COUNT 3.16 10^6/ul (4.70-6.10); WHITE BLOOD COUNT 8.29 K/ul (4.2-10.2)
[2023-06-16 05:28] LABS: ALANINE AMINOTRANSFERASE 16.3 U/L (0-50); ALBUMIN 3.04 g/dL (3.5-5.0); ALKALINE PHOSPHATASE 59.2 U/L (56-119); ASPARTATE AMINO TRANSFERASE 36.5 U/L (17-59); BILIRUBIN,TOTAL 0.67 mg/dL (0.2-1.3); BLOOD UREA NITROGEN 21.1 mg/dL (9-20); CALCIUM 8.39 mg/dL (8.4-10.2); CARBON DIOXIDE 32.4 mmol/L (22-30.0); CHLORIDE 99.7 mmol/L (98-107); CREATININE 0.97 mg/dL (0.60-1.10); GLUCOSE 89.7 mg/dL (74-106); POTASSIUM 4.37 mmol/L (3.5-5.1); SODIUM 133.4 mmol/L (134.5-145); TOTAL PROTEIN 6.47 g/dL (6.3-8.2)
--- NOTE | 2023-06-16 08:29 | PCM.PROG ---
Attending Provider: ATTENDING PROVIDER: Dr. MACKENZIE FUENTES MD This patient is seen with Lizette Latham, Nurse Practitioner. DATE OF SERVICE: 06/16/23 SUBJECTIVE: This 88 year old /WHITE M was hospitalized 06/11/23. Large area of eschar dangling. Sanguineous drainage. Redness has improved. REVIEW OF SYSTEMS: CONSTITUTIONAL: No night sweats. No fatigue, malaise, lethargy. No fever or chills. HEENT: Eyes: No visual changes. No eye pain. No eye discharge. ENT: No runny nose. No epistaxis. No sinus pain. No odynophagia. No congestion. RESPIRATORY: No cough, no congestion. No hemoptysis. No shortness of breath. CARDIOVASCULAR: No angina symptoms. No CHF symptoms. No atypical chest pain for CAD. No palpitations. No orthopnea.. GASTROINTESTINAL: No abdominal pain. No nausea or vomiting. No diarrhea or constipation. No hematemesis. No hematochezia. GENITOURINARY: No urgency. No frequency. No dysuria. No hematuria. No obstructive symptoms. No discharge. No pain. No significant abnormal bleeding. MUSCULOSKELETAL: No musculoskeletal pain; no joint swelling. Weakness. NEUROLOGICAL: Awake, alert, oriented to time, place and person. No headache. No neck pain. No syncope. No seizures. No dizziness. PSYCHIATRIC: Not anxious. No depression. No suicidal thoughts. No homicidal thoughts. SKIN: No rash. No lesions. right leg wound. ENDOCRINE: No unexplained weight loss. No weight gain. HEMATOLOGIC/LYMPHATIC: No anemia. No purpura. No petechiae. No prolonged or excessive bleeding. No palpable lymph nodes. PHYSICAL EXAMINATION: GENERAL: The patient is awake, alert and oriented, lying in bed in no distress. VITAL SIGNS: Temperature 97.9 F, Pulse 68, Respiratory Rate 20, BP 119/62, Pulse Ox 96% HEENT: Head normocephalic, atraumatic. Eyes: Extraocular muscles are intact. Pupils are equal, round and reactive to light and accommodation. Ears: No lesions. Nose appeared normal. Throat: No exudate or erythema. NECK: Supple. No JVD, no carotid bruit. No lymphadenopathy or thyromegaly. LUNGS: Diminished breath sounds. Clear to auscultation. Percussion note normal. Chest symmetrical. HEART: S1, S2, no S3. No murmurs. No cyanosis or clubbing. No ascites. Pulses: Dorsalis pedis and posterior tibial pulses +1 to +2 both sides. ABDOMEN: Soft. Non-tender. Bowel sounds active. No CVA tenderness. No mass felt. EXTREMITIES: No edema. Full range of motion of all extremities, equal. NEUROLOGIC: No focal deficit. Cranial nerves II through XII are grossly intact. No headache. No double vision. SKIN: Not dry. Intact. Turgor-normal. Wound on right lower extremity anterior and posterior now with coordinator of online programs eschar removed revealing ulcerative tissue LYMPHATIC: No palpable lymph nodes/no lymphedema. MUSCULOSKELETAL: Normal joints with no swelling. Muscle tone is normal. LAB REVIEW: 06/16/23 05:04 06/16/23 05:04 06/16/23 05:04: WBC 8.29, RBC 3.16 L, Hgb 8.6 L, Hct 30.2 L, MCV 95.6 H, MCH 27.2, MCHC 28.5 L, RDW Coeff of Leonardo 15.9 H, Plt Count 312, Immature Gran % (Auto) 0.2, Neut % (Auto) 73.2, Lymph % (Auto) 16.3, [place] % (Auto) 7.1, Eos % (Auto) 2.8, Baso % (Auto) 0.4, Neut # (Auto) 6.1, Lymph # (Auto) 1.4, [place] # (Auto) 0.6, Eos # (Auto) 0.2, Baso # (Auto) 0.0, Immature Gran # (Auto) 0.0, S odium 133.4 L, Potassium 4.37, Chloride 99.7, Carbon Dioxide 32.4 H, Anion Gap 5.67, BUN 21.1 H, Creatinine 0.97, Estimated GFR (MDRD) 73.00, BUN/Creatinine Ratio 21.75, Glucose 89.7, Calcium 8.39 L, Total Bilirubin 0.67, AST 36.5, ALT 16.3, Alkaline Phosphatase 59.2, Total Protein 6.47, Albumin 3.04 L, Globulin 3.43, Albumin/Globulin Ratio 0.88 ASSESSMENT: Please see below. 1. Right lower extremity wound 2. Right lower extremity cellulitis 3. Anemia PLAN: 1. Keep right lower extremity elevated with ulcerative area open to air. 2. Continue PO antibiotics Plan and coordination of the patient's care discussed in the presence of Band Edger and nurse. SCRIBED BY: Mauro REDDY scribed while in presence of service performed by Lizette Latham APRN on 06/16/23 ([id number])
--- NOTE | 2023-06-16 11:42 | PN ---
DATE OF SERVICE: 06/12/23 SUBJECTIVE: 88 year old white male hospitalized because of the right leg cellulitis, bilateral dependent leg edema. The patient is bed ridden, unable to walk. He spends his day in the wheelchair. He is taken care of by granddaughters of his friend who . He was seen and examined yesterday in the emergency room and was sent home. This morning the patient is feeling a lot better, more awake. REVIEW OF SYSTEMS: CONSTITUTIONAL: No night sweats. Mild sleepiness but appetite has improved some. No fever or chills. HEENT: Eyes: No visual changes. No eye pain. No eye discharge. ENT: No runny nose. No epistaxis. No sinus pain. No sore throat. No odynophagia. No congestion. RESPIRATORY: No cough, no congestion. No hemoptysis. No shortness of breath. CARDIOVASCULAR: No angina symptoms. No CHF symptoms. No atypical chest pain for CAD. No palpitations. No PND. No orthopnea. GASTROINTESTINAL: No abdominal pain. No nausea or vomiting. No diarrhea or constipation. No hematemesis. No hematochezia. GENITOURINARY: No urgency. No frequency. No dysuria. No hematuria. No obstructive symptoms. No discharge. No pain. No significant abnormal bleeding. MUSCULOSKELETAL: No musculoskeletal pain; no joint swelling. NEUROLOGICAL: No headache. No neck pain. No syncope. No seizures. No dizziness. PSYCHIATRIC: Not anxious. No depression. No suicidal thoughts. No homicidal thoughts. SKIN: No rash. No lesions. No wounds. ENDOCRINE: No unexplained weight loss. No weight gain. HEMATOLOGIC/LYMPHATIC: No anemia. No purpura. No petechiae. No prolonged or excessive bleeding. No palpable lymph nodes. PHYSICAL EXAMINATION: GENERAL: The patient is oriented to person and place. HEENT: Head normocephalic, atraumatic. Eyes: Extraocular muscles are intact. Pupils are equal, round and reactive to light and accommodation. Ears: No lesions. Nose appeared normal. Throat: No exudate or erythema. NECK: Supple. No JVD, no carotid bruit. No lymphadenopathy or thyromegaly. LUNGS: Decreased breath sounds. Dry crepitation at bases. Percussion note normal. Chest symmetrical. HEART: S1, S2, no S3. No murmurs. No cyanosis or clubbing. No ascites. Pulses: Dorsalis pedis and posterior tibial pulses +1 bilaterally. ABDOMEN: Soft. Nontender. Bowel sounds active. No CVA tenderness. No mass felt. EXTREMITIES: +1 pitting edema. Full range of motion of all extremities, equal. Right leg has large hematoma, 8in long, 8in wide. More like an eschar formation. Edema surrounding heart is less than yesterday. Redness is less than yesterday. No red streaks noted. Mild fluid oozing noted at the lower part of the hematoma. Large hematoma is attached to the deep tissue. Discharged noted on the dressing. NEUROLOGIC: No focal deficit. Cranial nerves II through XII are grossly intact. No headache. No double vision. SKIN: Not dry. Intact. Turgor - normal. LYMPHATIC: No palpable lymph nodes/no lymphedema. MUSCULOSKELETAL: Normal joints with no swelling. Muscle tone is normal. LABS: Hgb 8.8, hgb 31, WBC 7,500 normal differential, creatinine 1, BUN 19. ASSESSMENT: 1. Right lower leg cellulitis with large hematoma with bilateral leg edema, seems to have improved some. PLAN: 1. Advised to continue elevation of the legs. 2. Continue antibiotics Rocephin and Doxycycline 3. The patient was seen by Wound Care [facility] for Chlorhexidine and Betadine applied as by her. 4. Prior to hospitalization I had discussed the case with [place], took care of patient's wound two weeks the patient's wound was nearly 2 inches diameter, small which has grown now with serosanguineous fluid discharge and evidence of cellulitis TIME SPENT: More than 35 minutes. Plan and coordination of the patient's care discussed in the presence of nurse. KENTRELL
--- NOTE | 2023-06-16 11:54 | PN ---
DATE OF SERVICE: 06/13/23 SUBJECTIVE: 88 year old white male hospitalized with right leg cellulitis with large hematoma surrounding cellulitis. The patient's hematoma is attached to the tissues likely when it is going to sluff off it's going to form an ulcer. It seems to be draining some. REVIEW OF SYSTEMS: CONSTITUTIONAL: No night sweats. No fatigue, malaise, lethargy. No fever or chills. HEENT: Eyes: No visual changes. No eye pain. No eye discharge. ENT: No runny nose. No epistaxis. No sinus pain. No sore throat. No odynophagia. No congestion. RESPIRATORY: No cough, no congestion. No hemoptysis. No shortness of breath. CARDIOVASCULAR: No angina symptoms. No CHF symptoms. No atypical chest pain for CAD. No palpitations. No PND. No orthopnea. GASTROINTESTINAL: No abdominal pain. No nausea or vomiting. No diarrhea or constipation. No hematemesis. No hematochezia. Appetite has improved some. GENITOURINARY: No urgency. No frequency. No dysuria. No hematuria. No obstructive symptoms. No discharge. No pain. No significant abnormal bleeding. MUSCULOSKELETAL: No musculoskeletal pain; no joint swelling. NEUROLOGICAL: No headache. No neck pain. No syncope. No seizures. No dizziness. More alert. PSYCHIATRIC: Not anxious. No depression. No suicidal thoughts. No homicidal thoughts. SKIN: No rash. No lesions. No wounds. ENDOCRINE: No unexplained weight loss. No weight gain. HEMATOLOGIC/LYMPHATIC: No anemia. No purpura. No petechiae. No prolonged or excessive bleeding. No palpable lymph nodes. PHYSICAL EXAMINATION: GENERAL: The patient is oriented to person and place. VITAL SIGNS: Temperature 98.2, pulse 72, respiratory rate 20, blood pressure 99/65 and pulse ox 96% HEENT: Head normocephalic, atraumatic. Eyes: Extraocular muscles are intact. Pupils are equal, round and reactive to light and accommodation. Ears: No lesions. Nose appeared normal. Throat: No exudate or erythema. NECK: Supple. No JVD, no carotid bruit. No lymphadenopathy or thyromegaly. LUNGS: Decreased breath sounds. Clear to auscultation. Percussion note normal. Chest symmetrical. HEART: S1, S2, no S3. No murmurs. No cyanosis or clubbing. No ascites. Pulses: Dorsalis pedis and posterior tibial pulses +1 to +2 bilaterally. ABDOMEN: Soft. Nontender. Bowel sounds active. No CVA tenderness. No mass felt. EXTREMITIES: Full range of motion of all extremities, equal. Large hematoma attached to the deep tissue lower part of the hematoma seems to be detaching, still some drainage noted surrounding the hematoma is decreasing. Edema is much less. No red streaks noted. NEUROLOGIC: No focal deficit. Cranial nerves II through XII are grossly intact. No headache. No double vision. SKIN: Not dry. Intact. Turgor - normal. LYMPHATIC: No palpable lymph nodes/no lymphedema. MUSCULOSKELETAL: Normal joints with no swelling. Muscle tone is normal. LABS: Hgb 8.8, hgb 31, WBC 7,500 normal differential, creatinine 1, BUN 19 ASSESSMENT: 1. Cellulitis with hematoma PLAN: 1. Advised to continue antibiotics Rocephin, Doxycycline. 2. Elevate the legs 3. Continue all the medications 4. Continue dressing with Chlorhexidine and Betadine 5. Try to keep the hematoma dry and surrounding tissue so that it can solidify. 6. Continue to consult with Wound Care. TIME SPENT: More than 35 minutes. Plan and coordination of the patient's care discussed in the presence of nurse. KENTRELL
--- NOTE | 2023-06-16 12:59 | PN ---
DATE OF SERVICE: 06/14/23 SUBJECTIVE: 88 year old white male hospitalized with right leg cellulitis with large hematoma. The patient is alert, called me by name. Appetite seems to have improved. REVIEW OF SYSTEMS: CONSTITUTIONAL: No night sweats. No fatigue, malaise, lethargy. No fever or chills. Practically no pain because likely from neuropathy. HEENT: Eyes: No visual changes. No eye pain. No eye discharge. ENT: No runny nose. No epistaxis. No sinus pain. No sore throat. No odynophagia. No congestion. RESPIRATORY: No cough, no congestion. No hemoptysis. No shortness of breath. CARDIOVASCULAR: No angina symptoms. No CHF symptoms. No atypical chest pain for CAD. No palpitations. No PND. No orthopnea. GASTROINTESTINAL: No abdominal pain. No nausea or vomiting. No diarrhea or constipation. No hematemesis. No hematochezia. GENITOURINARY: No urgency. No frequency. No dysuria. No hematuria. No obstructive symptoms. No discharge. No pain. No significant abnormal bleeding. MUSCULOSKELETAL: No musculoskeletal pain; no joint swelling. NEUROLOGICAL: No headache. No neck pain. No syncope. No seizures. No dizziness. PSYCHIATRIC: Not anxious. No depression. No suicidal thoughts. No homicidal thoughts. SKIN: No rash. No lesions. No wounds. ENDOCRINE: No unexplained weight loss. No weight gain. HEMATOLOGIC/LYMPHATIC: No anemia. No purpura. No petechiae. No prolonged or excessive bleeding. No palpable lymph nodes. PHYSICAL EXAMINATION: GENERAL: The patient is oriented to person and place. VITAL SIGNS: Temperature 98.3, pulse 70, respiratory rate 17, blood pressure 104/60 and oxygen saturation 97% on 2 liters. HEENT: Head normocephalic, atraumatic. Eyes: Extraocular muscles are intact. Pupils are equal, round and reactive to light and accommodation. Ears: No lesions. Nose appeared normal. Throat: No exudate or erythema. NECK: Supple. No JVD, no carotid bruit. No lymphadenopathy or thyromegaly. LUNGS: Few dry crepitations. Clear to auscultation. Percussion note normal. Chest symmetrical. HEART: S1, S2, no S3. No murmurs. No cyanosis or clubbing. No ascites. Pulses: Dorsalis pedis and posterior tibial pulses +1 to +2 bilaterally. ABDOMEN: Soft. Nontender. Bowel sounds active. No CVA tenderness. No mass felt. EXTREMITIES: No edema. Full range of motion of all extremities, equal. Large hematoma which has solidified over a few weeks with detachment of hematoma on the lower posterior aspect of the leg noted, some drainage but much less than before. Redness surrounding the hematoma seems to have decreased remarkably. NEUROLOGIC: No focal deficit. Cranial nerves II through XII are grossly intact. No headache. No double vision. SKIN: Not dry. Intact. Turgor - normal. LYMPHATIC: No palpable lymph nodes/no lymphedema. MUSCULOSKELETAL: Normal joints with no swelling. Muscle tone is normal. LABS: Hgb 8.7, hct 31, WBC 7,000 normal differential, creatinine 0.8, BUN 21, potassium 4. ASSESSMENT: 1. Right leg cellulitis seems to be resolving. 2. CHF seems to be stable, the patient has been taken off blood thinner Apixaban because of constant oozing from the large wound. 3. History of pulmonary embolism PLAN: 1. The patient has been explained about the findings according to him the Care Takers were in charge of the patient's care, which was acceptable to them. The patient's serosanguineous fluid discharge from the wound has dried up. 2. The patient grew Staph sensitive to Rocephin and Doxycycline so discontinued Rocephin. We will continue him on Doxycycline 100mg BID. 3. Elevate the leg 4. Chlorhexidine and Betadine, clean the wound and dry 5. Bowel movement today. 6. Eating better. 7. The patient had possibility of mild grade I type of decubitus forming at the bottom which has healed up. CONDITION: Stable for now. It is going to be a long time incase if this wound will heal up on the right leg because a lot of factors like that patient's mobility, bed ridden situation, paralbuminemia, poor skin condition, lack of care at home, aging process 88 year old TIME SPENT: More than 35 minutes. Plan and coordination of the patient's care discussed in the presence of nurse. KENTRELL
--- NOTE | 2023-06-16 13:26 | RS.PTINEVL ---
Subjective Patient information Date of Evaluation: 06/16/23 Date of Arrival on Unit: 06/10/23 Admitted From:: Home Diagnosis: cellultis, hematoma RLE Usual Living Arrangement: Alone Living Arrangement Comments: pt lives at home and granddaughter stays with him Home Environment: House and Ramp Medical History: Hypertension, COPD, Diabetes, CHF and Arthritis Medical History Comments:: CKD, BPH, hypothyroidism LATEX ALLERGY?: No Medications: see chart Subjective Information/ Patient Comments:: pt states that he isn't sure he can stand to be able to transfer to chair however he is willing to try. Level of function Prior to this admission, the patient could do the following:: Partially Dependent Ambulation Abilities prior to this admission: pt only took a few steps at home with rollator Current Level of Function: Partially Dependent Current Equipment Used at Home: rollator Pain Assessement Location Right Calf: Description: Tightness and Sharp Pain Behavior: Facial Grimacing Pain Alleviating Factors: Position Change Interventions Objective Patient Orientation: Person, Place and Time Current Interventions: IV's, Oxygen and Telemetry Observation: pt with large wound R lat/posterior calf which began as hematoma. pt with bloody exudate and erythema surrounding wound. Range of Motion ROM Right Upper Extremity AROM: Slight limitation (limited shld flex ) Left Upper Extremity AROM: Slight limitation (limited shld flex ) Right Lower Extremity AROM: Slight limitation (decreased hip and knee ext ) Left Lower Extremity AROM: Slight limitation (decreased hip and knee ext ) Muscle Strength Muscle Strength Right Upper Extremity: Mild Weakness (shld flex 3/5, elbow flex/ext 4-/5) Left Upper Extremity: Mild Weakness (shld flex 3/5, elbow flex/ext 4-/5) Right Lower Extremity: Mild Weakness (hip flex 3+/5, knee flex 3-/5, ext 3-/5, ankle DF/PF 4-/5) Left Lower Extremity: Mild Weakness (hip flex 4-/5, knee flex/ext 4/5, ankle DF/PF 4/5 ) Sensation Sensation Right Upper Extremity: Intact/Normal Left Upper Extremity: Intact/Normal Right Lower Extremity: Intact/Normal Left Lower Extremity: Intact/Normal Comments: does report some n/t in B feet Palpation Palpation Findings: Tenderness (R lat LE ) Balance Sitting Balance and Reactions Static Sitting Balance: Fair Dynamic Sitting Balance: Fair Standing Balance and Reactions Static Standing Balance: Poor Dynamic Standing Balance: Poor Standing Equilibrium Reactions: Delayed Left and Delayed Right Standing Protective Reactions: Delayed Left and Delayed Right Comments Balance Assessment Comments: pt able to reach across and away from midline without LOB in sitting Functional Mobility Bed Mobility Rolling R/L: Mod Assist and 2 person assist Scooting: Mod Assist and 2 person assist Supine to Sit: Mod Assist and 2 person assist Transfers Sit to Stand: Min Assist and 2 person assist Stand to Sit: Min Assist and 2 person assist Safety Awareness Safety Awareness: Fair BOBY INDEX SCORE: n/a Ambulation Ambulation Weight Bearing Status: WBAT Assistive Device Used: Rollator Orthotic/Prosthetic Device: No Distance: 3-4 steps Assistance needed with Ambulation: Min Assist and 2 person assist Gait Deviations: Wide Based gait, Shuffling gait, Forward posture and Short stride Factors Affecting Ambulation: Decreased Balance, Pain, Weakness, Decreased Coordination, Decreased Safety and Limited Endurance Treatment time Time with patient Length of Evaluation: 19 Total treatment time: 23 Patient Education Education Patient Education: Activity Modification and Education of Plan of Care Teaching Recipient: Family and Primary Caregiver Teaching Methods: Discussion Assessment Assessment Problem List:: Decreased level of function, Requires training/education, Decreased safety/Risk of falls, Weakness and Pain limits previous level of function Rehab Potential: Fair Further Therapy Indicated?: Yes Candidate for Swing Bed for Therapy Services?: Feel pt would not be a candidate for swing bed for therapy due to unable to tolerate therapy required for swing bed. Evaluation Complexity: HISTORY: Medium, EXAM OF BODY SYSTEMS: Medium, CLINICAL PRESENTATION: Medium and CLINICAL DECISION MAKING: Medium Patient's Goal(s): Family goal is for pt to be able to transfer as independent as possible. Short Term Goals GOAL #1: Rolling in bed with bedrails min x 1 Goal to be met by: 06/19/23 GOAL #2: Transfer sup to/from sit min x 2 Goal to be met by: 06/19/23 GOAL #3: Transfer sit to/from stand min x 1 Goal to be met by: 06/19/23 GOAL #4: pt amb with rwx 25ft with min x 1 Goal to be met by: 06/19/23 GOAL #5: Improve BLE Strength 4/5 Goal to be met by: 06/19/23 GOAL #6: . Halfway Goals GOAL #1: pt transfer sup to/from sit to/from stand min x 1 Goal to be met by: 06/22/23 GOAL #2: pt amb with rwx with O2 functional household distances min x 1 Goal to be met by: 06/22/23 GOAL #3: pt able to propel w/c independently. Goal to be met by: 06/22/23 Plan Plan of Care: Therapeutic EX, Neuromuscular Re-Educ and Therapeutic Activity Other:: gait training, training on use of w/c Frequency of Treatment: 1-2 X day, as tolerated Duration of Treatment: 5 days Anticipated Discharge Destination: undetermined Treatment Diagnosis (ICD 10 Codes): difficulty walking R 36.2 impaired balance R 26.81 weakness M62.81 wound R lat leg Has the Physician been added for Co-signature?: Yes
[2023-06-17 05:25] LABS: BASOPHILS % (AUTO) 0.5 % (0.0-3.0); EOSINOPHILS # (AUTO) 0.2 K/ul (0.0-0.7); EOSINOPHILS % (AUTO) 2.2 % (0.0-7.0); HEMATOCRIT 31.3 % (42.0-52.0); HEMOGLOBIN 8.8 g/dl (14.0-18.0); IMMATURE GRANULOCYTE % (AUTO) 0.3 % (0.0-5.0); LYMPHOCYTES # (AUTO) 1.4 K/uL (0.60-3.4); LYMPHOCYTES % (AUTO) 16.4 (10.0-50.0); MEAN CORPUSCULAR HEMOGLOBIN 26.7 pg (27.0-31.0); MEAN CORPUSCULAR HGB CONC 28.1 (31.8-35.4); MEAN CORPUSCULAR VOLUME 94.8 fl (80.0-94.0); MONOCYTES # (AUTO) 0.6 K/uL (0.4-2.0); MONOCYTES % (AUTO) 7.3 (0-10); NEUTROPHILS # (AUTO) 6.4 K/ul (2.0-6.9); NEUTROPHILS % (AUTO) 73.3 % (42.2-75.2); PLATELET COUNT 337 10^3/uL (140-440); RDW COEFFICIENT OF VARIATION 15.9 % (11.6-14.8); WHITE BLOOD COUNT 8.68 K/ul (4.2-10.2)
[2023-06-17 05:37] LABS: ALBUMIN 3.29 g/dL (3.5-5.0); ALKALINE PHOSPHATASE 69.7 U/L (56-119); ASPARTATE AMINO TRANSFERASE 37.4 U/L (17-59); BILIRUBIN,TOTAL 0.53 mg/dL (0.2-1.3); BLOOD UREA NITROGEN 26.2 mg/dL (9-20); CALCIUM 8.35 mg/dL (8.4-10.2); CARBON DIOXIDE 33.2 mmol/L (22-30.0); CHLORIDE 99.8 mmol/L (98-107); CREATININE 1.04 mg/dL (0.60-1.10); GLUCOSE 99.7 mg/dL (74-106); POTASSIUM 4.38 mmol/L (3.5-5.1); SODIUM 135.2 mmol/L (134.5-145); TOTAL PROTEIN 6.93 g/dL (6.3-8.2)
--- NOTE | 2023-06-17 11:50 | RS.OTINEVL ---
Subjective Patient information Date of Evaluation: 02/10/22 Date of Arrival on Unit: 06/10/23 Admitted From:: Home Diagnosis: Pneumonia PRECAUTIONS: O2 , falls Usual Living Arrangement: Alone Living Arrangement Comments: pt lives at home and granddaughter stays with him. Home Environment: House and Ramp Medical History: Hypertension, COPD, Diabetes, CHF and Arthritis Medical History Comments:: CKD, BPH, hypothyroidism LATEX ALLERGY?: No Surgical History Comments:: skin CA, Medications: see chart Subjective Information/ Patient Comments:: "I don't know. I didn't fair to well in that chair yesterday." Level of function Prior to this admission, the patient could do the following:: Partially Dependent Ambulation Abilities prior to this admission: Pt was using a WC at home. Pt was able to transfer from WC with assistance to the toilet. Current Level of Function: Partially Dependent Comments: Pt scooted LLE across the bed. Pt then had help with the RLE. Current Equipment Used at Home: rollator Pain Assessment Pain Pain Aggravating Factors: Changing Position, Standing and Walking Pain Alleviating Factors: Inactivity and Lying Supine Interventions ROM Right Upper Extremity AROM: Moderate limitation Left Upper Extremity AROM: Slight limitation Strength Right Upper Extremity: Mild Weakness Left Upper Extremity: Mild Weakness Sensation Right Upper Extremity: Intact/Normal Left Upper Extremity: Intact/Normal Balance Sitting Balance Static Sitting Balance: Fair Dynamic Sitting Balance: Fair Standing Balance Static Standing Balance: Poor Dynamic Standing Balance: Poor ADL Skills Self Feeding Self Feeding: Set Up Only Grooming Grooming: Min Assist Grooming Set-up: Sitting Bathing Bathing UE: Mod Assist Bathing LE: Max Assist Bathing Set-up: Bedside Dressing Dressing UE: Min Assist Dressing LE: Max Assist Toilet Management Toilet Hygiene: Min Assist Toilet Clothing Management: Min Assist Functional Mobility Bed Mobility Rolling R/L: Mod Assist Scooting: Max Assist Sit to Supine: Mod Assist Transfers Sit to Stand: Mod Assist Stand to Sit: Mod Assist Stand Pivot Transfers: Mod Assist Ambulation Assistive Device Used: Rolling Walker Assistance needed with Ambulation: Mod Assist and 2 person assist BOBY INDEX SCORE: . Additional Treatment Performed Time with patient Length of Evaluation: 19 Total treatment time: 19 Activities Do you enjoy playing games?: Yes Would you be interested in leaving your room for activities?: Yes Would you enjoy group activities?: Yes Do you have difficulty with your vision?: Yes Patient Interests:: Watching Television and Visiting/Socializing Patient Education Patient Education: Education of diagnosis, Body/Joint mechanics, Home Exercise Program, Activity Modification and Education of Plan of Care Teaching Recipient: Patient Teaching Methods: Teach Back Method Used and Discussion Assessment Problem List:: Decreased level of function, Requires training/education, Decreased safety/Risk of falls, Weakness and Pain limits previous level of f unction Rehab Potential: Good Further Therapy Indicated?: Yes Candidate for Swing Bed for Therapy Services?: Pt is not motivated to get up from bed and walk. Evaluation Complexity: HISTORY: Medium, EXAM OF BODY SYSTEMS: Medium and CLINICAL DECISION MAKING: Medium Patient's Goal(s): To get his wounds better and go home. Short Term Goals Goals GOAL 1: Pt to tolerate sink level ADLS with SUP Goal to be met by: 02/13/22 GOAL 2: Pt to increase activity tolerance to 10 mins Goal to be met by: 02/13/22 Comments: with rests GOAL 3: Pt to increase strength to 4/5 Goal to be met by: 02/13/22 Comments: Ed on OP therapy for UE ROM/strength GOAL 4: Pt to increase dyn. std. bal. to Fair. Goal to be met by: 02/13/22 Comments: fair/fair- Bandsaw Operator Goals GOAL 1: Pt to increase activity tolerance to 15 minutes with rests. Goal to be met by: 02/15/22 GOAL 2: Pt to increase strength to 4+/5. Goal to be met by: 02/15/22 GOAL 3: Pt to increase dyn. std. bal. to Fair +. Goal to be met by: 02/15/22 Plan Plan of Care: Therapeutic EX, Therapeutic Activity and Self-Care/Home Management Modalities: Cold Pack/Cryotherapy Frequency of Treatment: 1-2 X day, as tolerated Duration of Treatment: 1 Week Anticipated Discharge Destination: Home Treatment Diagnosis (ICD 10 Codes): Weakness R53.1 Has the Physician been added for Co-signature?: Yes
[2023-06-17] MEDS ORDERED: AMOXICILLIN PO SCH (13:00)
[2023-06-17] MEDS: AMOXICILLIN PO SCH (14:02)
[2023-06-17 20:23] VITALS: RESP 16
[2023-06-18 05:25] LABS: BASOPHILS % (AUTO) 0.5 % (0.0-3.0); EOSINOPHILS # (AUTO) 0.2 K/ul (0.0-0.7); EOSINOPHILS % (AUTO) 2.5 % (0.0-7.0); HEMATOCRIT 32.5 % (42.0-52.0); HEMOGLOBIN 9.2 g/dl (14.0-18.0); IMMATURE GRANULOCYTE % (AUTO) 0.4 % (0.0-5.0); LYMPHOCYTES # (AUTO) 1.4 K/uL (0.60-3.4); LYMPHOCYTES % (AUTO) 15.8 (10.0-50.0); MEAN CORPUSCULAR HEMOGLOBIN 27.1 pg (27.0-31.0); MEAN CORPUSCULAR HGB CONC 28.3 (31.8-35.4); MEAN CORPUSCULAR VOLUME 95.6 fl (80.0-94.0); MONOCYTES # (AUTO) 0.7 K/uL (0.4-2.0); MONOCYTES % (AUTO) 8.1 (0-10); NEUTROPHILS # (AUTO) 6.2 K/ul (2.0-6.9); NEUTROPHILS % (AUTO) 72.7 % (42.2-75.2); PLATELET COUNT 299 10^3/uL (140-440); WHITE BLOOD COUNT 8.53 K/ul (4.2-10.2)
[2023-06-18 05:29] VITALS: BP 120/65; PULSE 79; TEMP 97.5
[2023-06-18 05:36] LABS: ALANINE AMINOTRANSFERASE 18.9 U/L (0-50); ALBUMIN 3.48 g/dL (3.5-5.0); ALKALINE PHOSPHATASE 66.3 U/L (56-119); ASPARTATE AMINO TRANSFERASE 41.9 U/L (17-59); BILIRUBIN,TOTAL 0.64 mg/dL (0.2-1.3); BLOOD UREA NITROGEN 28.6 mg/dL (9-20); CALCIUM 8.48 mg/dL (8.4-10.2); CHLORIDE 100.9 mmol/L (98-107); CREATININE 0.88 mg/dL (0.60-1.10); GLUCOSE 102.2 mg/dL (74-106); POTASSIUM 3.95 mmol/L (3.5-5.1); SODIUM 136.6 mmol/L (134.5-145); TOTAL PROTEIN 6.87 g/dL (6.3-8.2)
[2023-06-18 05:42] LABS: ANISOCYTOSIS OCCASIONAL (NOT PRESENT); HYPOCHROMASIA 1+ (NOT PRESENT); POIKILOCYTOSIS 1+ (NOT PRESENT)
--- NOTE | 2023-06-18 08:49 | HP ---
DATE OF SERVICE: 06/11/23 REASON FOR HOSPITALIZATION/HISTORY OF PRESENT ILLNESS: Right leg swollen/open sore-draining tender, tired and sleepy. PAST MEDICAL HISTORY/PAST SURGICAL HISTORY: History bilateral PE 08/22 Left lung mass-Dr. Mohan/[facility] Cor pulmonale Chronic respiratory failure Metabolic syndrome Chronic bronchitis DJD L spine Hypertension Obesity COPD History of of CHF BPH GERD Hypothyroidism Diabetes Mellitus type II REVIEW OF SYSTEMS: CONSTITUTIONAL: No fever, Fatigue. HEENT: No sinus drainage, no sore throat. RESPIRATORY: No cough, no congestion. CARDIOVASCULAR: No atypical chest pain for coronary artery disease. No angina, CHF symptoms, palpitations. Shortness of breath as usual. GASTROINTESTINAL: No melena or abdominal pain. No GERD. GENITOURINARY: No hematuria, no prostatism, no polyuria. CONVENTIONAL UNDERWRITER: No blackout, no dizziness, no headache, no double vision. GAIT: Unable to walk. MUSCULOSKELETAL: Osteoarthritis pain, Joint swelling. ENDOCRINE: No weight loss, Weight gain. SKIN: Not dry, no rash. PSYCHIATRIC: Not anxious, no depression, no suicidal thoughts, no homicidal thoughts. SOCIAL HISTORY: Marital Status: single. Tobacco Usage:No. MEDICATIONS: Ipratropium Budesonide Prednisone Pravastatin Furosemide Levothyroxine Spironolactone Allopurinol Lorazepam Omeprazole Metformin Carvedilol Tamsulosin Escitalopram Bupropion Apixaban Mupirocin Multivitamin Fluticasone ALLERGIES: No known allergies. PHYSICAL EXAMINATION: V/S: Pulse 82, blood pressure 137/83, temperature 97.7, oxygen saturation 95%. weight 221. GENERAL APPEARANCE: Oriented times three. HEENT: Normal. NECK: No JVP, no bruits. RESPIRATORY: Severely diminished breath sounds CARDIOVASCULAR: S1, S2, no S3, no murmur. No cyanosis, clubbing. No ascites. GI/ABDOMEN: No tenderness. Bowel sounds are active. EXTREMITIES: Edema right more than left. +4 right lower extremity,+3 left lower extremity , pulses +1, equal. Wound right lower extremity serosanguineous drainage. CONVENTIONAL UNDERWRITER: Deep tendon reflexes, sensory, motor and gait all normal. RECTAL/PELVIC/PROSTATE: . ASSESSMENT: 1. Cellulitis right lower extremity 2. Leg edema, bilateral 3. History bilateral PE 08/22 4. Left lung mass-Dr. Mohan/[facility] 5. Cor pulmonale 6. Chronic respiratory failure 7. Metabolic syndrome 8. Chronic bronchitis 9. DJD L spine 10.Hypertension 11.Obesity 12.COPD 13.History of of CHF 14.BPH 15.GERD 16.Hypothyroidism 17.Diabetes Mellitus type II PLAN: 1. Routine telemetry orders 2. CBC/CMP now and daily 3. Wound culture right leg 4. Blood cultures times two 5. IV Lasix 40mg today and tomorrow 6. Add PO Lasix 7. Doxycycline 100mg IV Q 12 hours 8. Rocephin 1gram IV Q 12 hours 9. Elevate legs 10.Continue home medications 11.O2 at 1-2 liters PRN 12. Leave wound open 13.Document with images 14.Dialy weight TIME SPENT: More than 75 minutes. MTDD
[2023-06-18] MEDS ORDERED: AMPICILLIN SODIUM IV SCH (12:00)
[2023-06-18] MEDS ORDERED: SODIUM CHLORIDE IV SCH (12:00)
--- NOTE | 2023-06-23 09:55 | PN ---
DATE OF SERVICE: 06/17/23 SUBJECTIVE: 88 year old white male hospitalized with right leg cellulitis. The patient has eschar or clot, 8in by 8in across, horseshoe shape. The patient also had Staph growing from it so we are going to continue Doxycycline along with Amoxicillin. The patient is feeling better, denies of any pain, seems to be improving. REVIEW OF SYSTEMS: CONSTITUTIONAL: No night sweats. No fatigue, malaise, lethargy. No fever or chills. Still sleepy at times but more alert than usual. HEENT: Eyes: No visual changes. No eye pain. No eye discharge. ENT: No runny nose. No epistaxis. No sinus pain. No sore throat. No odynophagia. No congestion. RESPIRATORY: No cough, no congestion. No hemoptysis. No shortness of breath. CARDIOVASCULAR: No angina symptoms. No CHF symptoms. No atypical chest pain for CAD. No palpitations. No PND. No orthopnea. GASTROINTESTINAL: No abdominal pain. No nausea or vomiting. No diarrhea or constipation. No hematemesis. No hematochezia. GENITOURINARY: No urgency. No frequency. No dysuria. No hematuria. No obstructive symptoms. No discharge. No pain. No significant abnormal bleeding. MUSCULOSKELETAL: No musculoskeletal pain; no joint swelling. NEUROLOGICAL: No headache. No neck pain. No syncope. No seizures. No dizziness. mental status has improved. PSYCHIATRIC: Not anxious. No depression. No suicidal thoughts. No homicidal thoughts. SKIN: No rash. No lesions. No wounds. ENDOCRINE: No unexplained weight loss. No weight gain. HEMATOLOGIC/LYMPHATIC: No anemia. No purpura. No petechiae. No prolonged or excessive bleeding. No palpable lymph nodes. PHYSICAL EXAMINATION: VITAL SIGNS: Temperature 98.4, pulse 75, respiratory rate 20, blood pressure 108/70 and pulse ox 97% with 2 liters. HEENT: Head normocephalic, atraumatic. Eyes: Extraocular muscles are intact. Pupils are equal, round and reactive to light and accommodation. Ears: No lesions. Nose appeared normal. Throat: No exudate or erythema. NECK: Supple. No JVD, no carotid bruit. No lymphadenopathy or thyromegaly. LUNGS: Decreased breath sounds, Clear to auscultation. Percussion note normal. Chest symmetrical. HEART: S1, S2, no S3. No murmurs. No cyanosis or clubbing. No ascites. Pulses: Dorsalis pedis and posterior tibial pulses +1 to +2 bilaterally. ABDOMEN: Soft. Nontender. Bowel sounds active. No CVA tenderness. No mass felt. EXTREMITIES: No edema. Full range of motion of all extremities, equal. ulcer on the right leg, underneath the eschar or clot surrounding, doesn't have edema like what it was before, no oozing. no foul smell. No red streaks noted. Calf nontender bilaterally. Practically no pedal edema bilateral. NEUROLOGIC: No focal deficit. Cranial nerves II through XII are grossly intact. No headache. No double vision. SKIN: Not dry. Intact. Turgor - normal. LYMPHATIC: No palpable lymph nodes/no lymphedema. MUSCULOSKELETAL: Normal joints with no swelling. Muscle tone is normal. LABS: Hgb 8.8, hct 31, WBC 8.6, creatinine 1, BUN 26 ASSESSMENT: 1. Cellulitis of right lower lobe is confined to are covered by black eschar or clot. The patient appointment to see Wound Care at [facility]. CONDITION: Stable. PLAN: 1. The patient is being considered for swing bed. PROGNOSIS FOR HEALING IS NOT GOOD. TIME SPENT: More than 35 minutes. Plan and coordination of the patient's care discussed in the presence of nurse. KENTRELL
--- NOTE | 2023-06-23 10:33 | PN ---
DATE OF SERVICE: 06/15/23 SUBJECTIVE: The patient was seen and examined with the Nurse Practitioner. The patient's condition is stable. Cellulitis is localized. Continue Doxycycline. No foul odor or discharge. TIME SPENT: More than 35 minutes. Plan and coordination of the patient's care discussed in the presence of nurse. KENTRELL
--- NOTE | 2023-06-23 10:52 | PN ---
DATE OF SERVICE: 06/16/23 SUBJECTIVE: The patient was seen and examined with the Nurse Practitioner. Continue the antibiotic. The patient's other medical conditions like CHF, coronary artery disease all that seems to be stable. His mental status and appetite seems to have improved. Cellulitis is getting into the covered area with eschar or clot. The clot on the lower aspect of the posteriorly seems to be detaching. TIME SPENT: More than 35 minutes. Plan and coordination of the patient's care discussed in the presence of nurse. KENTRELL
== END 2023-06-18 09:09 | disposition swing bed (61) | DRG 603 ==
LOC: MEDSURG B 11:00
PROVIDERS: ADMIT Internal Medicine; ATTEND Internal Medicine